=== PATIENT | female | born 1960 | race Caucasian/White ===

== ENCOUNTER 2022-08-30 07:29 | Outpatient (RCR) | payer MEDICARE, MEDICAID, SELFPAY | END 2022-09-07 23:59 | disposition home or self-care (01) | LOC: INF 07:29 | PROVIDERS: PCP Internal Medicine | DX: D64.9 Anemia, unspecified (principal) | CPT/HCPCS: 86850; 86900; 86901 ==

== ENCOUNTER 2022-09-25 09:37 | Day surgery (SDC) | payer MEDICARE, MEDICAID, SELFPAY ==
[2022-09-25 10:25] VITALS: BP 118/71; PULSE 73; RESP 18; TEMP 36.3; O2SAT 97
[2022-09-25 10:32] LABS: Glucometer 98 mg/dL (74-106)
--- NOTE | 2022-09-25 10:53 | P.ON_ITS ---
Date of procedure: 09/25/22 Pre-op diagnosis: Cervical Spondylosis Post-op diagnosis: same Procedure: Left Cervical 5/6, 6/7 facet injection Under fluoroscopic guidance Solution injected: 2millilitersMarcaine 0.25% Anesthesia :none Immediate complications none Time out process compliant After informed consent obtained from the patient placed in the [employer] proposition . area was prepped and draped in a sterile fashion using betadine. 25 gauge spinal needle inserted over each of the above mentioned target areas . [place] were directed towards the target under fluoroscopic guidance . after encountering each of the targets , no indication of intravascular intraneuronal or intrathecal needle tip placement. Then 0 .5 to 1 Milliliter was injected at each level. [place] removed postoperatively. patient transferred to recovery in stable condition to be discharged home after meeting criteria Surgeon: Amilcar Jacome
[2022-09-25 11:07] VITALS: RESP 20
[2022-09-25 11:10] VITALS: BP 154/77; PULSE 85; O2SAT 95
[2022-09-25] MEDS: BUPIVACAINE HCL 0.25% PF 25 MG/10 ML VIAL 8 ML INJ (11:13)
[2022-09-25 11:15] VITALS: BP 190/77; PULSE 87; O2SAT 97
== END 2022-09-25 11:32 | disposition home or self-care (01) ==
LOC: SURGOUT 09:38
PROVIDERS: PCP Internal Medicine; Visit Provider Anesthesiology Pain Medicine
DX: M47.812 Spondylosis without myelopathy or radiculopathy, cervical region (principal)
CPT/HCPCS: 36415; 64490; 64491; 82948

== ENCOUNTER 2023-01-15 14:02 | Outpatient (OUT) | payer MEDICARE, MEDICAID, SELFPAY ==
--- NOTE | 2023-01-15 | CONS_ITS ---
PROCEDURE DATE: ??01/15/2023 PROCEDURE:? Trigger point injection left trapezius at the C7 level, in the office. PREOPERATIVE DIAGNOSIS:? Pain secondary to cervical spondylosis, complicated by myofascial spasm, left trapezius, most severe at the C7 level. POSTOPERATIVE DIAGNOSIS:? Pain secondary to cervical spondylosis, complicated by myofascial spasm, left trapezius, most severe at the C7 level. IMMEDIATE COMPLICATIONS:? None. SOLUTION USED FOR INJECTION:? 2 mL of 2% lidocaine, 2 mL of 0.25% Marcaine and 10 mg of Kenalog, total of 5 mL, and 3 mL used for the injection at the site.? PROCEDURE:? After informed consent was obtained from the patient, placed in the sitting position.? Skin overlying the area was prepped with alcohol.? A 25 gauge 1 ?? needle was inserted at the left C7 level, approximately 2 cm from midline and directed towards the left trapezius.? ?After having a positive twitch response, we injected a total of 3 mL of solution.? No indication of intravascular or intraneural or intrathecal or intrapleural needle tip placement or injection.? She reports a marked reduction in pain symptoms post procedurally. DARCI
== END 2023-01-15 14:03 | disposition home or self-care (01) ==
LOC: PM 14:02
PROVIDERS: PCP Internal Medicine; Visit Provider Anesthesiology Pain Medicine
DX: M47.812 Spondylosis without myelopathy or radiculopathy, cervical region (principal); M62.838 Other muscle spasm
CPT/HCPCS: 20552

== ENCOUNTER 2023-05-28 13:08 | Outpatient (OUT) | payer MEDICARE, MEDICAID, SELFPAY ==
--- NOTE | 2023-05-28 13:18 | MM_ITS ---
Patient Name: DONNA MATHEWS MR#: [id number] : 1960 Exam Date: 05/28/2023 Ordering Doctor: DR LIYAH STOLL M.D. RADIOLOGY REPORT PROCEDURE: MM SCREENING MAMMO BI COMPARISON: MG MAMM SCREEN SAMAN W CAD, 04/25/2021. MG MAMM SCREEN SAMAN W CAD, 05/10/2022. INDICATIONS: Screening Calculator Name NCI Breast Cancer Risk Assessment Tool 5 Year Breast Cancer Risk 1.90% Lifetime Breast Cancer Risk 9.30% Personal Breast Cancer No Personal Ovarian Cancer No Treatments None Family Cancers Cousin-maternal with breast cancer at age 45; Aunt-maternal with lung cancer at age 72; Cousin-maternal with rectal cancer at age 52. LOCATION: [facility] BREAST COMPOSITION: Heterogeneously dense,which may obscure small masses. FINDINGS: DIAGNOSTIC CATEGORY 2--BENIGN FINDING. NO CHANGE FROM COMPARISON. Limited exam due to mobility and body habitus. Scattered benign-appearing calcifications are present. Scattered benign-appearing lymph nodes are present. RIGHT BREAST: No significant suspicious finding. LEFT BREAST: No significant suspicious finding. RECOMMENDATIONS: ROUTINE MAMMOGRAM AND CLINICAL EVALUATION IN 12 MONTHS. PLEASE NOTE: A NORMAL MAMMOGRAM DOES NOT EXCLUDE THE POSSIBILITY OF BREAST CANCER. A CLINICALLY SUSPICIOUS PALPABLE LUMP SHOULD BE BIOPSIED. Dictated by: Josr Saunders MD on 05/28/2023 at 14:34 Approved by: Josr Saunders MD on 05/28/2023 at 14:35
--- OUTSIDE RECORDS SUMMARY | 2023-05-28 13:24 | XMS_ITS | CCD ---
Author Organization [facility] Care Team Providers Care Coding Analyst Name Role Phone David Mejía Admitting Unavailable David Mejía Attending Unavailable Harjit Lopez Primary Care Unavailable DAVID MEJÍA Admitting Unavailable DAVID MEJÍA Attending Unavailable HARJIT LOPEZ Primary Care Unavailable Doug Ornelas MD Primary Care Provider [phone] Christopher Lema Unavailable Kendell Garcia Unavailable JOSE MARTIN .DR JARAD Attending Unavailable GAGNON ., DR JARAD Decker Admitting Unavailable REX, GLORY Primary Care Unavailable IGNACIO ., ABHINAV Consulting Unavailable REX, GLORY Primary Care Unavailable IGNACIO ., ABHINAV Consulting Unavailable JOSE MARTIN ., DR JARAD Decker Attending Unavailable GAGNON ., DR JARAD Decker Admitting Unavailable GAGNON ., DR JARAD Decker Admitting Unavailable REX, GLORY Primary Care Unavailable IGNACIO ., ABHINAV Consulting Unavailable GAGNON ., DR JARAD Decker Attending Unavailable GAGNON ., DR JARAD Decker Admitting Unavailable GAGNON ., DR JARAD Decker Consulting Unavailable REX, GLORY Primary Care Unavailable GAGNON ., DR JARAD Decker Attending Unavailable LAKSHMIPATHY ., NARENDRANATH Consulting Flora vailable LAKSHMIPATHY ., NARENDJOSELITOATH Attending Flora vailable LAKSHMIPATHY ., NARENDRANATH Admitting Flora vailable DR OTDD GEORGE Primary Care Unavailable JOSE MARTIN ., DR JARAD Decker Admitting Unavailable REX, LGORY Primary Care Unavailable IGNACIO ., ABHINAV Consulting Unavailable GAGNON ., DR JARAD Decker Attending Unavailable SKYLER PIÑA Attending Unavailable SKYLER PIÑA Admitting Unavailable DR TODD GEORGE Primary Care Unavailable MATIAS, DR EL Page Consulting Unavailable SKYLER PIÑA Consulting Unavailable LAKSHMIPATHY ., NARENDRANATH Admitting Flora vailable LAKSHMIPATHY ., NARENDRANATH Attending Flora vailable JERMAN, DR PELLETIER Primary Care Unavailable MATIAS, DR EL Page Consulting Unavailable LAKSHMIPATHY ., NARENDRANATH Consulting Flora vailable LAKSHMIPATHY ., NARENDRANATH Admitting Flora vailable LAKSHMIPATHY ., NARENDRANATH Attending Flora vailable JERMAN, DR PELLETIER Primary Care Unavailable BOONE, DR BANDAR Romero Consulting Unavailable LAKSHMIPATHY ., NARENDRANATH Consulting Flora vailable REX, GLORY Admitting Unavailable REX, GLORY Attending Unavailable JERMAN, DR PELLETIER Consulting Unavailable JERMAN, DR PELLETIER Primary Care Unavailable BOONE, DR BANDAR Romero Consulting Unavailable REX, GLORY Consulting Unavailable GAGNON ., DR JARAD Decker Admitting Unavailable REX, GLORY Primary Care Unavailable IGNACIO .ABHINAV Consulting Unavailable JOSE MARTIN ., DR JARAD Decker Attending Unavailable Todd George MD Primary Care Provider ZIYAD ULRICH Attending Unavailable TODD GEORGE Referring Unavailable JERMAN TODD B Primary Care Unavailable ANURAG ISABEL Attending Unavailable TODD GEORGE B Primary Care Unavailable KRYSTIN SALCEDO Attending Unavailable KRYSTIN SALCEDO Admitting Unavailable KRYSTIN SALCEDO Referring Unavailable JERMAN TODD B Primary Care Unavailable KRYSTIN SALCEDO Attending Unavailable TODD GEORGE B Referring Unavailable JERMAN TODD B Primary Care Unavailable ANDRE GRAVES Attending Unavailable GABRIELLE CONTRERAS Referring Unavailable JERMAN TODD B Primary Care Unavailable ANDRE GRAVES Attending Unavailable GABRIELLE CONTRERAS Referring Unavailable JERMAN TODD B Primary Care Unavailable ZIYAD ULRICH Referring Unavailable TODD GEORGE Primary Care Unavailable Rosina Fink Attending Unavailab Rosina Figueredo Referring Unavailab Harjit Gonzalez Primary Care Unavailable Rosina Fink Admitting Unavailab le Allergies Allergy Classification Reported Allergen(s) Allergy Type Date of Onset Reaction(s) Facility (1 source) No Known Medication Allergies; Translations: [No Known Medication Allergies] Propensity to adverse reactions to drug (disorder) [facility] Rep[facility] Medications Current Medications Medication Drug Class(es) Dates Sig (Normalized) Sig (Original) A/C/E/zinc ox/cupric ox/lutein (OCULAR VITAMINS ORAL) (1 source) A/C/E/zinc ox/cu pric ox/lutein (OCULAR VITAMINS ORAL) Take by mouth. 0 Active acetaminophen 325 mg oral tablet (2 sources) take 2 tablets by mouth every six hours as needed for pain acetaminophen (TYLENOL) 325 mg tablet Take 2 tablets (650 mg total) by mouth every 6 (six) hours as needed for pain. 0 Active aspirin 81 mg delayed release oral tablet (3 sources) Platelet Aggregation Inhibitor, Nonsteroidal Anti-inflammatory Drug take 1 tablet by mouth in the morning aspirin 81 mg Take 1 tablet (81 mg total) by mouth in the morning. 0 Active Comment on above: Take 81 mg by mouth once daily. Avonex 30 MCG/VIAL (2 sources) inject 1.5 mL by intramuscular injection every week Avonex 30 MCG/VIAL 1.5 ML Intramuscular Once a Week for 30 day(s) Active B complex-vitamin C-folic acid (RENAL-LOLIS) 0.8 mg tablet (2 sources) take 1 tablet by mouth in the morning B complex-vitamin C-folic acid (RENAL-LOLIS) 0.8 mg tablet Take 1 tablet by mouth in the morning. 0 Active biotin 1 mg oral tablet (2 sources) take 1 tablet by mouth in the morning biotin 1 mg tablet Take 1 tablet (1 mg total) by mouth in the morning. 0 Active calcitriol 0.57731 mg oral capsule (2 sources) Vitamin D3 Analog Calcitriol 0.2 5 MCG Oral for 28 Active Calcium + D 315-200 MG-UNIT (2 sources) Calcium + D 315- 200 MG-UNIT as directed Orally Active calcium carbonate 1250 mg chewable tablet (3 sources) calcium carbonat e (TUMS) 200 mg elemental (500 mg) chewable tablet Chew 1 tablet (200 mg total) and swallow in the morning. 0 Active calcium carbonat e (OS-NAIMA) 500 mg elemental (1,250 mg) chewable tablet Chew 2 tablets (1,000 mg total) and swallow. Take Sat., Th, Fri (she takes the medication with her on dialysis day) 0 Active carboxymethylcellulose sodium 10 mg/ml ophthalmic solution (2 sources) take 1 drop(s) into the eye(s) in the morning carboxymethylcellulose sodium (ARTIFICIAL TEARS, [facility],) 1 % drops Administer 1 drop to both eyes in the morning and 1 drop before bedtime. 0 Active carvedilol 6.25 mg oral tablet (2 sources) alpha-Adrene rgic Jyoti, beta-Adrener gic Jyoti take 0.5 tablet by mouth in the morning, then take 0.5 tablet by mouth at mealtime carvediloL (COREG) 6.25 mg tablet Take 0.5 tablets (3.125 mg total) by mouth in the morning and 0.5 tablets (3.125 mg total) in the evening. Take with meals. 0 Active cholecalciferol 0.025 mg oral tablet (3 sources) Vitamin D Start : 09-19 take 1 tablet by mouth in the morning cholecalciferol (VITAMIN D3) 1,000 units tablet Take 1 tablet (1,000 Units total) by mouth in the morning. 30 tablet 3 09/19/2022 Active Start: 05-23-2014 take 1 tablet by attila th three times daily cholecalciferol (VITAMIN D) 1,000 unit tab Take 1 tablet by mouth three times daily. May resume after taking one week course of 50,000uVit D (start on 05/24/2014) 0 05/23/2014 Active Comment on above: Take 1 tablet by attila th three times daily. May resume after taking one week course of 50,000uVit D (start on 05/24/2014) Darvocet-N 100 100-650 MG (2 sources) take 1 tablet by mouth every four hours as needed for pain Darvocet-N 100 100-650 MG 1 tablet as needed for pain Orally every 4 hrs Active docusate sodium 50 mg / sennosides, prison 8.6 mg oral tablet (2 sources) Start: 09-19-2022 take 1 tablet by mouth once as needed sennosides-docusate sodium (SENOKOT-S) 8.6-50 mg Take 1 tablet by mouth every 12 (twelve) hours as needed for constipation. 0 09/19/2022 Active famotidine 20 mg oral tablet (2 sources) Histamine-2 Receptor Antagonist take 1 tablet by mouth once daily at bedtime famotidine (PEPCID) 20 mg tablet Take 1 tablet (20 mg total) by mouth once daily at bedtime. 0 Active furosemide 40 mg oral tablet (4 sources) Loop Diuretic Start: 01-17-2009 take 1 tablet by mouth every twenty-four hours Lasix 40 MG 1 tablet Orally Once a day for 30 day(s) Jan, Active take 1 tablet by attila th every twenty-four hours Lasix 80 MG 1 tablet Orally Once a day for 30 day(s) Active 5 ml iron sucrose 20 mg/ml injection (2 sources) Parenteral Iron Replacement Start: 08-22-2022 VENOFER 100 mg iron/5 mL injection Infuse 5 mL (100 mg total) into a venous catheter. 0 08/22/2022 Active lactobacillus acidophilus [id number] unt / pectin 100 mg oral tablet (2 sources) take 1 tablet by mouth once daily at breakfast acidophilus-pect in, citrus 25 million cell -100 mg tablet Take 1 tablet by mouth daily with breakfast. 0 Active lactulose 89206 mg powder for oral solution (3 sources) Osmotic Laxative take 1 dose by mouth three times daily lactulose (CEPHULAC) 10 gram packet Take 1 packet (10 g total) by mouth 3 (three) times a day. 0 Active Enulose 10 GM/15 ML Oral for 30 Active Lutein (2 sources) take 1 tablet by mouth in the morning LUTEIN ORAL Take 1 tablet by mouth in the morning. 0 Active melatonin 3 mg oral tablet (2 sources) take 1 tablet by mouth once daily melatonin (CIRCADIN) tablet Take 1 tablet (3 mg total) by mouth nightly. 0 Active metoprolol tartrate 50 mg oral tablet (2 sources) beta-Adrenergic Jyoti take 1 tablet by mouth every twenty-four hours Metoprolol Tartrate 50 MG 1 tablet Orally ONCE A DAY for 30 day(s) Active midodrine hydrochloride 5 mg oral tablet (2 sources) alpha-Adrenergic Agonist Start: 10-07-19 midodrine (PROAMATINE) 5 mg tablet Take 1 tablet (5 mg total) by mouth before breakfast. On dialysis days 1 tab as needed for hypotension PRE dialysis in am 0 10/06/2022 Active modafinil 100 mg oral tablet (4 sources) Sympathomimetic-lik e Agent take 1 tablet by mouth in the morning modafiniL (PROVIGIL) 100 mg tablet Take 1 tablet (100 mg total) by mouth in the morning. 0 Active Multivitamins (2 sources) Multivitamins as directed Orally Active nut.tx.imp.renal fxn,lac-reduc (NEPRO CARB STEADY) 0.08 gram-1.8 kcal/mL liquid (2 sources) nut.tx.imp.renal fxn,lac-reduc (NEPRO CARB STEADY) 0.08 gram-1.8 kcal/mL liquid Take 237 fluid ounces by mouth daily after dinner. 0 Active nystatin 100 unt/mg topical powder (2 sources) Polyene Antifungal nystatin (MYC OSTATIN) powder Apply 1 Application topically in the morning and 1 Application before bedtime. 0 Active omega-3 fatty acids 500 mg capsule (2 sources) take 1 capsule by mouth once daily at bedtime omega-3 fatty acids 500 mg capsule Take 1,500 mg by mouth once daily at bedtime. 0 Active OXcarbazepine 300 mg oral tablet (5 sources) Anti-epileptic Agent take 1 tablet by mouth in the morning, then take 1 tablet by mouth at bedtime OXcarbazepine (TRILEPTAL) 300 mg tablet Take 1 tablet (300 mg total) by mouth in the morning and 1 tablet (300 mg total) before bedtime. 0 Active take 1 tablet by mouth twice rachel ly OXcarbazepine 150 mg tablet Take 150 mg by mouth twice daily. 0 Active Comment on above: Take 150 mg by mouth twice daily. oxyCODONE hydrochloride 5 mg oral capsule (4 sources) Opioid Agonist Start: 04-10-2023 End: 05-10-2023 take 2.5 mg by mouth every eight hours as needed oxyCODONE (OXY-IR) 5 mg capsule Take 2.5 mg by mouth every 8 (eight) hours as needed. Max Daily Amount: 7.5 mg 0 04/10/2023 05/10/2023 Active Start: 10-03-2022 oxyCODONE (HEATHER ICODONE) 5 mg immediate release tablet Start: 05-23-2014 take 5-10 mg by mout h every three hours as needed oxyCODONE immediate release (PERCOLONE) 5 mg immediate release tablet Take 1-2 tablets by mouth every 3 hours as needed. 0 05/23/2014 Active Comment on above: Take 1-2 tablets by mouth every 3 hours as needed. pregabalin 75 mg oral capsule (4 sources) take 1 capsule by mouth once daily at bedtime pregabalin (LYRICA) 75 mg capsule Take 1 capsule (75 mg total) by mouth once daily at bedtime. 0 Active Pregabalin 150 M G Oral for 15 Active DIANA-LOLIS RX 1-60-300 mg-mg-mcg tablet (1 source) Start: 03-25-2023 DIANA-LOLIS RX 1-60-300 mg-mg-mcg tablet sertraline 50 mg oral tablet (2 sources) Serotonin Reuptake Inhibitor take 1 tablet by mouth in the morning sertraline (ZOLOFT) 50 mg tablet Take 1 tablet (50 mg total) by mouth in the morning. 0 Active sevelamer carbonate 800 mg oral tablet (1 source) Phosphate Binder Start: 02-22-2023 sevelamer (RE NVELA) 800 mg tablet sodium zirconium cyclosilicate 42641 mg powder for oral suspension (1 source) sodium zirconium cyclosilicate (LOKELMA) 10 gram packet Take 10 g by mouth in the morning. 0 Active traZODone hydrochloride 50 mg oral tablet (4 sources) Serotonin Reuptake Inhibitor Start: 10-03-2022 traZODone (DESYREL) 50 mg tablet traZODone HCl 50 MG Oral for 30 Active Completed/Discontinued Medications Medication Drug Class(es) Dates Sig (Normalized) Sig (Original) alendronic acid 70 mg oral tablet (1 source) Bisphosphonate take 1 tablet by mouth every week alendronate (FOSAMAX) 70 mg tablet Take 70 mg by mouth once each week. 0 Active Comment on above: Take 70 mg by mouth once each week. ascorbic acid 500 mg oral tablet (1 source) Vitamin C take 1 tablet by mouth once daily ascorbic acid (VITAMIN C) 500 mg tablet Take 500 mg by mouth once daily. 0 Active Comment on above: Take 500 mg by mouth once daily. atorvastatin 80 mg oral tablet (3 sources) HMG-CoA Reductase Inhibitor Start: 05-21-2020 atorvastatin (LIPITOR) 80 mg tablet calcium citrate 950 mg oral tablet (1 source) take 1 tablet by mouth once daily calcium citrate 200 mg (950 mg) tab Take 1,900 mg by mouth once daily. 0 Active Comment on above: Take 1,900 mg by attila th once daily. 12 hr dalfampridine 10 mg extended release oral tablet (1 source) Potassium Channel Jyoti take 1 tablet by mouth twice daily Dalfampridine (AMPYRA) 10 mg Tb12 Take 1 tablet by mouth twice daily. 0 Active Comment on above: Take 1 tablet by attila th twice daily. ferrous sulfate 325 mg oral tablet (1 source) take 1 tablet by mouth once daily at breakfast Ferrous Sulfate (IRON) 325 mg (65 mg iron) tablet Take 325 mg by mouth daily with breakfast. 0 Active Comment on above: Take 325 mg by mouth daily with breakfast. fingolimod 0.5 mg oral capsule (1 source) Sphingosine 1-phosphate Receptor Modulator take 1 capsule by mouth once daily Fingolimod (GILENYA) 0.5 mg cap Take 1 capsule by mouth once daily. 0 Active Comment on above: Take 1 capsule by mo [facility] once daily. Fish Oil-[place]-3 Fatty Acids (FISH OIL) 340-1,000 mg cap (1 source) Fish Oil-[place]-3 Fatty Acids (FISH OIL) 340-1,000 mg cap Take 2 capsules by mouth. 0 Active Comment on above: Take 2 capsules by outh. FOLIC ACID/MV,FE,OTHER MIN/LUT (CERTAVITE WITH LUTEIN ORAL) (1 source) FOLIC ACID/MV,FE,OTHER MIN/LUT (CERTAVITE WITH LUTEIN ORAL) Take by mouth. 0 Active Comment on above: Take by mouth. gabapentin 600 mg oral tablet (1 source) Anti-epileptic Agent take 1 tablet by mouth twice daily gabapentin (NEURONTIN) 600 mg tablet Take 600 mg by mouth twice daily. 0 Active Comment on above: Take 600 mg by mouth twice daily. lisinopril 10 mg oral tablet (3 sources) Angiotensin Converting Enzyme Inhibitor take 1 tablet by mouth once daily lisinopril (ZESTRIL, PRINIVIL) 10 mg tablet Take 10 mg by mouth once daily. 0 Active take 1 tablet by attila every twenty-four hours Lisinopril 20 MG 1 tablet Orally Once a day for 30 day(s) Active Comment on above: Take 10 mg by mouth once daily. multivitamin with minerals tablet (1 source) take 1 tablet by mouth once daily multivitamin with minerals tablet Take 1 tablet by mouth once daily. 0 Active Comment on above: Take 1 tablet by attila once daily. omeprazole 20 mg delayed release oral capsule (1 source) Proton Pump Inhibitor take 1 capsule by mouth twice daily omeprazole 20 mg capsule Take 20 mg by mouth twice daily. 0 Active Comment on above: Take 20 mg by mouth twice daily. polyethylene glycol 3350 33334 mg powder for oral solution (4 sources) Osmotic Laxative Start: 03-18-201 5 take 1 dose by mouth once daily as needed polyethylene glycol 3350 (MIRALAX) 17 gram packet Take 1 Packet by mouth once daily as needed. 0 05/26/2014 Active polyethylene gly col (GLYCOLAX) 17 gram/dose powder Take 17 g by mouth in the morning. 0 Active MiraLax as direc rosa Orally Active Comment on above: Take 1 Packet by attila th once daily as needed. tiZANidine 4 mg oral tablet (1 source) Central alpha-2 Adrenergic Agonist take 1 tablet by mouth at bedtime tiZANidine (ZANAFLEX) 4 mg tablet Take 4 mg by mouth with meals and at bedtime. 0 Active Comment on above: Take 4 mg by mouth w ith meals and at bedtime. traMADol hydrochloride 50 mg oral tablet (3 sources) Opioid Agonist take 1 tablet by mouth every eight hours as needed traMADol (ULTRAM) 50 mg tablet Take 50 mg by mouth every 8 hours as needed. 0 Active Comment on above: Take 50 mg by mouth every 8 hours as needed. Problems Active Problems Problem Classification Problem Date Documented Date Episodic/Chronic Chronic kidney disease (10 sources) Chronic kidney disease stage 4; Translations: [Chronic kidney disease, stage 4 (severe)] Onset: 08-30-2022 08-30-2022 Chronic Chronic kidney disease (1 source) Chronic kidney disease Onset: 02-25-2023 Chronic ulcer of skin (4 sources) Traumatic leg ulcer; Translations: [Non-pressure chronic ulcer of unspecified part of left lower leg with fat layer exposed] Onset: 09-14-2022 09-14-2022 Chronic Complication of device; implant or graft (2 sources) Arteriovenous fistula stenosis; Translations: [Stenosis of other vascular prosthetic devices, implants and grafts, initial encounter] Onset: 04-01-2023 05-02-2023 Chronic Deficiency and other anemia (2 sources) Anemia of chronic disease; Translations: [Anemia in other chronic diseases classified elsewhere] Onset: 08-30-2022 09-13-2022 Chronic Diseases of white blood cells (2 sources) Leukocytosis; Translations: [Elevated white blood cell count, unspecified] Onset: 09-13-2022 09-13-2022 Chronic Essential hypertension (2 sources) Essential hypertension; Translations: [HTN [Hypertension]] Chronic Multiple sclerosis (10 sources) Multiple sclerosis; Translations: [Multiple sclerosis] Onset: 01-24-2021 Resolved: 01-24-2021 Chronic Osteoarthritis (4 sources) Arthropathy of left shoulder; Translations: [Primary osteoarthritis, left shoulder] Onset: 01-24-2021 Resolved: 01-24-2021 Chronic Osteoporosis (4 sources) Age-related osteoporosis without current pathological fracture; Translations: [AGE-REL OSTEOPOR W/O CURR PATH FX] Onset: 05-10-2022 Chronic Other circulatory disease (2 sources) Arteriovenous fistula, acquired; Translations: [Arteriovenous fistula, acquired] Onset: 04-01-2023 Chronic Other connective tissue disease (2 sources) History of total knee arthroplasty; Translations: [Presence of right artificial knee joint] Chronic Other connective tissue disease (1 source) Complete rotator cuff tear or rupture of right shoulder, not specified as traumatic; Translations: [CMPL ROT CUFF TEAR/RUPT RT SHOULDR] Onset: 07-08-2022 Episodic Other connective tissue disease (1 source) Unspecified rotator cuff tear or rupture of left shoulder, not specified as traumatic; Translations: [UNS ROT CUFF TEAR/RUPT LT SHOULDER] Onset: 06-15-2022 Episodic Other diseases of veins and lymphatics (2 sources) Lymphedema; Translations: [Lymphedema, not elsewhere classified] Onset: 09-14-2022 09-14-2022 Chronic Other nervous system disorders (1 source) Other chronic pain; Translations: [OTHER CHRONIC PAIN] Onset: 06-15-2022 Chronic Other nervous system disorders (1 source) Other acute postprocedural pain; Translations: [Other acute postprocedural pain] Onset: 02-25-2023 Episodic Other non-traumatic joint disorders (3 sources) Charcot's arthropathy; Translations: [Charcot's joint, unspecified site] Onset: 03-27-2013 03-27-2013 Chronic Other non-traumatic joint disorders (4 sources) Pain in left shoulder; Translations: [PAIN IN LEFT SHOULDER] Onset: 07-04-2022 Episodic Other nutritional; endocrine; and metabolic disorders (5 sources) Morbid obesity; Translations: [Morbid (severe) obesity due to excess calories] Onset: 09-13-2022 09-13-2022 Chronic Other nutritional; endocrine; and metabolic disorders (1 source) Morbid (severe) obesity due to excess calories Onset: 01-24-2021 Resolved: 01-24-2021 Chronic Other screening for suspected conditions (not mental disorders or infectious disease) (1 source) Encounter for screening mammogram for malignant neoplasm of breast; Translations: [ENC SCR MAMMO MALIG NEOPLASM BREAST] Onset: 05-14-2022 Episodic Residual codes; unclassified (1 source) Family history of malignant neoplasm of breast; Translations: [FAMILY HX MALIG NEOPLASM OF BREAST] Onset: 05-14-2022 Episodic Residual codes; unclassified (1 source) Family history of malignant neoplasm of trachea, bronchus and lung; Translations: [FAM HX MALIG NEOPLSM TRACH BRON LNG] Onset: 05-14-2022 Episodic Residual codes; unclassified (1 source) Family history of malignant neoplasm of other organs or systems; Translations: [FAM HX MALIG NEOPLASM OTH ORGN/SYS] Onset: 05-14-2022 Episodic Spondylosis; intervertebral disc disorders; other back problems (10 sources) Spondylosis without myelopathy or radiculopathy, cervical region; Translations: [Other cervical disc degeneration, unspecified cervical region] Onset: 08-02-2021 Chronic Spondylosis; intervertebral disc disorders; other back problems (7 sources) Cervicalgia; Translations: [Cervical disc disorder with radiculopathy, unspecified cervical region] Onset: 01-24-2021 Resolved: 01-24-2021 Episodic Unclassified (2 sources) DX INCONTINENCE; Translations: [DX INCONTINENCE] Onset: 07-09-2018 Unclassified (1 source) Post-op Onset: 04-01-2023 Past or Other Problems Problem Classification Problem Date Documented Da te Episodic/Chronic Allergic reactions (2 sources) Irritant contact dermatitis; Translations: [Other specified dermatitis] Onset: 09-14-2022 09-14-2022 Episodic Fracture of lower limb (4 sources) Fracture of femur; Translations: [Unspecified fracture of unspecified femur, initial encounter for closed fracture] Onset: 09-29-2013 04-28-2014 Episodic Mood disorders (2 sources) Mood disorders Onset: 09-13-2022 09-13-2022 Other connective tissue disease (1 source) Other muscle spasm; Translations: [OTHER MUSCLE SPASM] Onset: 01-29-2022 Episodic Phlebitis; thrombophlebitis and thromboembolism (3 sources) H/O: Deep vein thrombosis; Translations: [Personal history of other venous thrombosis and embolism] Onset: 09-29-2013 05-04-2021 Episodic Residual codes; unclassified (2 sources) FH: Multiple sclerosis; Translations: [Family history of epilepsy and other diseases of the nervous system] Onset: 09-13-2022 09-13-2022 Episodic Residual codes; unclassified (2 sources) Urinary catheter in situ; Translations: [Presence of other specified devices] Onset: 09-13-2022 09-13-2022 Episodic Results Test Name Value Interpretation Reference Range Facility POTASSIUMon 02-25-2023 Potassium [Moles/Vol] 5.4 mmol/L High 3.5-5.0 [facility] Comment on above: Performed By: #### 2 823-3 #### [facility] ([id number]) [address], [address] [place] [address] MRI SHOULDER LT WO CONon MRI SHOULDER LT WO CON EXAMINATION: MRI SHOULDER LT WO CON HISTORY: Pain of left shoulder region ; chronic left shoulder pain COMPARISON: No relevant comparison available. TECHNIQUE: A variety of imaging planes and parameters were utilized for visualization of suspected pathology. Imaging was performed without contrast. FINDINGS: ROTATOR CUFF REGION CUFF TENDONS: Complete tear of the superior rotator cuff with 16 mm retraction. CUFF MUSCLES: Mild fatty infiltration of the superior rotator cuff muscle. DELTOID: Normal. No significant atrophy or tear. LONG BICEPS TENDON: Intact, but appears thinned overlying the humeral head. LABRUM/BICEPS ANCHOR SUPERIOR: No visible labral tear or biceps anchor pathology. ANTERIOR/INFERIOR: No visible tear or attrition. POSTERIOR: No posterior labrum abnormality. CAPSULE No visible capsular laxity or thickening. AC JOINT REGION AC JOINT: Severe osteoarthropathy with moderate to severe narrowing of the underlying coracoacromial arch. AC LIGAMENTS: Normal acromioclavicular ligament. CC LIGAMENTS: Normal coracoclavicular ligaments. ACROMION: Prominent undersurface osteophyte at the lateral inferior margin of acromion process. SUBACROMIAL BURSA: Large joint effusion. HYALINE CARTILAGE: Complete loss of cartilage with [id number] articulation between the humeral head and glenoid, remodeling of the glenoid, and large degenerative osteophyte along inferior articular margin of humeral head. OTHER BONES: Normal proximal humerus, glenoid, and coracoid. OTHER OBSERVATIONS: Negative. No other significant findings or glenohumeral effusion. IMPRESSION: 1. Marked degenerative changes of acromioclavicular joints and glenohumeral joint. 2. Complete tear of the superior rotator cuff with large effusion within the subacromial bursa. Electronically authenticated by: BANDAR SHOOK Date: 2022-07-05 07:[address] [facility] MG MAMM SCREEN SAMAN W CADon 0 05-10-2022 MG MAMM SCREEN SAMAN W CAD Patient: DONNA MATHEWS Exam Date: 05/10/2022 : 1960 Gender:F Ordering : MRS. [employer]YLER [employer] REPLACER-C Admission #: [id number] Family : Order #: [id number] CLICK HERE TO VIEW EXAM RADIOLOGY REPORT PROCEDURE: MAMMOGRAM BILATERAL SCREENING DIGITAL WITH COMPUTER AIDED DETECTION COMPARISON: MG MAMM SCREEN SAMAN W CAD, 04/25/2021. INDICATIONS: Screening mammography Calculator Name NCI Breast Cancer Risk Assessment Tool 5 Year Breast Cancer Risk 1.90% Lifetime Breast Cancer Risk 9.50% Personal Breast Cancer No Personal Ovarian Cancer No Treatments None Family Cancers Cousin-maternal with breast cancer at age 45; Aunt-maternal with lung cancer at age 72; Cousin-maternal with rectal cancer at age 52. LOCATION: [facility] BREAST COMPOSITION: Heterogeneously dense,which may obscure small masses. FINDINGS: DIAGNOSTIC CATEGORY 1--NEGATIVE. NO CHANGE FROM COMPARISON ASSESSMENT. Non tomographic imaging, Very limited evaluation due to the patient's obesity and immobility. Scattered benign-appearing calcifications are present. RIGHT BREAST: No significant suspicious finding. LEFT BREAST: No significant suspicious finding. RECOMMENDATIONS: ROUTINE MAMMOGRAM AND CLINICAL EVALUATION IN 12 MONTHS. PLEASE NOTE: A NORMAL MAMMOGRAM DOES NOT EXCLUDE THE POSSIBILITY OF BREAST CANCER. A CLINICALLY SUSPICIOUS PALPABLE LUMP SHOULD BE BIOPSIED. Dictated by: El Salcedo MD on 05/11/2022 at 12:29 Approved by: El Salcedo MD on 05/11/2022 at 12:[address] [facility] XR DEXA BONE DENSITYon 05-10 XR DEXA BONE DENSITY EXAMINATION: XR DEX A BONE DENSITY, 05/10/2022 12:41 PM EST HISTORY: Osteoporosis COMPARISON: 2019, 2016, 2012 TECHNIQUE: Dual-energy X-ray absorptiometry (DEXA) bone density study performed for the axial skeleton. FINDINGS: Bone mineral density in the left forearm measures 0.565 g/sq cm. T score -2.1. WHO classification: Osteopenia Lowest bone mineral density in the total right femur measuring 0.42 g/sq cm. T score -4.6. WHO classification: Osteoporosis IMPRESSION: Osteoporosis. High fracture risk Electronically authenticated by: EL SALCEDO Date: 2022-05-10 16:[address] [facility] MRI BRAIN WO W CONon 023 MRI BRAIN WO W CON EXAMINATION: MRI BRA IN WO W CON HISTORY: Multiple sclerosis COMPARISON: MRI brain 10/10/2020 TECHNIQUE: A variety of imaging planes and parameters were utilized for visualization of suspected pathology. Images were performed without and with Dotarem contrast. FINDINGS: CEREBRUM: Prominent T2 signal involving the periventricular deep white matter with additional focal subcortical areas. No hemorrhage, mass, or acute infarction. No enhancement of these areas. CEREBELLUM: No edema, hemorrhage, mass, acute infarction, or inappropriate atrophy. BRAINSTEM: No edema, hemorrhage, mass, acute infarction, or inappropriate atrophy. CSF SPACES: Ventricles, cisterns, and sulci are appropriate for age. No hydrocephalus, subarachnoid hemorrhage, or mass. SKULL: No mass or other significant visible lesion. SINUSES: Mucocele versus retention cyst within right maxillary sinus. ORBITS: Limited views are unremarkable. OTHER: No abnormal meningeal or parenchymal enhancement. IMPRESSION: 1. Grossly stable prominent T2 hyperintensities within periventricular deep white matter consistent with multiple sclerosis. No new findings or evidence to suggest active demyelination. 2. Grossly stable mild atrophy. Electronically authenticated by: BANDAR SHOOK Date: 2022-04-13 07:[address] [facility] BUNon 04-12-2022 Urea nitrogen [Mass/Vol] 37.0 mg/dL Critically high 7.0-18.[address] [facility] Comment on above: Performed By: #### C KRIS, BUN #### [facility] [address] [place] [address] Dr. Ellen Layne CREATININEon 04-12-2022 Creatinine [Mass/Vol] 1.79 mg/dL Critically high 0.55-1.[address] [facility] Comment on above: Performed By: #### C KRIS, BUN #### [facility] [address] [place], [place] [address] Dr. Ellen Layne EGFR-AF KYRGYZ 35 mL/min/1.73m2 Critically low >=[address] [facility] Comment on above: Performed By: #### C KRIS, BUN #### [facility] [address] [place], [place] [address] Dr. Ellen Layne EGFR-NON AF KYRGYZ 29 mL/min/1.73m2 Critically low >=[address] [facility] Comment on above: Performed By: #### C KRIS, BUN #### [facility] [address] [place], [place] [address] Dr. Ellen Layne Gastroenterology Office/Clin ic Noteon 05-18-2021 Gastroenterology Office/Clinic Note Chief Complaint ref by [facility]- abnormal labs HPI Staff This is a 60 year old female who presents today for a referral by [facility] for complaints of abnormal renal labs. History of Present Illness The patient is a senior living resident and was referred to me, but she is unsure what the referral was for. She denies abdominal pain, nausea, vomiting, fever, chills, melena, hematochezia, or dysphagia. She has history of Freida-en-Y gastric bypass. She reports that her last colonoscopy was 3 years ago with normal findings. Review of Systems PHQ Score Initial Depression Screen Score: 0 Constitutional: no fever, no chills, no sweats, no weakness Skin: no jaundice, no rash, no lesions, no petechiae ENMT: no ear pain, no sore throat, no congestion, no hoarseness Respiratory: no shortness of breath, no cough, no orthopnea, no wheezing Cardiovascular: no chest pain, no palpitations, no edema Gastrointestinal: no nausea, no vomiting, no diarrhea, no constipation, no GI bleeding, no abdominal pain, no dysphagia, no bloating, no heartburn Genitourinary: no dysuria, no hematuria, no discharge, no pain Musculoskeletal: no back pain, no trauma Neurologic: no numbness, no sleeping problems Additional ROS info: Except as noted in the above Review of Systems and in the History of Present Illness all other systems have been reviewed and are negative or noncontributory. Physical Exam Vitals & Measurements T: 36.1 ?C(Temporal Artery) HR: 75(Peripheral) RR: 16 BP: 126/83 HT: 165.0 cm HT: 165 cm WT: 134.1 kg WT: 134.1 kg BMI: 49.26 Constitutional: Appearance: well developed. Skin: Inspection: no rashes, ulcers, icterus, or telangiectasias. Eyes: Conjunctivae/lids: normal conjunctivae and lids. ENMT: Hearing: within normal limits. Lips/Teeth/Gums: normal oral mucosa. Neck: Neck: normal motion, central trachea. Respiratory: Percussion: thorax normoresonant. Auscultation: normal breath sounds; no rubs, wheezes, rale, or rhonchi. Cardiovascular: Auscultation: normal rhythm, S1 and S2; no rubs, murmurs, or gallop. Peripheral: no edema. Gastrointestinal/Abdom en: Abdomen: normal consistency and bowel sounds; no tenderness or masses. Liver/Spleen: normal size and consistency, not palpable. Rectal: deferred. Musculoskeletal: Gait/Station: normal gait. Assessment/Plan 1. Hx of gastric bypass (Z98.84: Bariatric surgery status) I am unsure why the patient was referred to me as the referral states she had abnormal renal labs; however, the lab work is not available to me. Before proceeding with any testing, I advised the patient to call the senior living and clarify why she was referred. 2. Screen for colon cancer (Z12.11: Encounter for screening for malignant neoplasm of colon) Documentation services were performed after patient or guardian consented to allow [employer] to record this visit. ANABELLE informatics specialist and provider reviewed before signing. ANABELLE: Gertrude Zepeda. Follow-up No qualifying data available Problem List/Past Medical History Ongoing Benign essential hypertension Body fluid retention Carpal tunnel syndrome carpel tunnel Chronic back pain Hand pain Lymph edema Multiple sclerosis Osteoporosis Pes planus Historical DVT Osteopenia Procedure/Surgical History Carpal tunnel release (03/18/2017), left carpal tunnel release (06/22/2013), Arthroplasty of knee, back surgery (lumbar fusion), bilateral foot surgery, Bilateral tubal ligation, Bunionectomy, Cholecystectomy, EMG - Electromyography, gastric bypass, History of tonsillectomy, Total replacement of right knee joint. Medications apixaban, Oral, BID aspirin, 81 mg, Oral, Daily atorvastatin, Oral, Daily Cerovite Advanced Formula, 1 tab(s), Oral, Daily famotidine, 20 mg, Oral, Once a day (at bedtime) ferrous sulfate, 325 mg, Oral, Daily Fish Oil, 1,200, Oral Fosamax 70 mg oral tablet, 70 mg= 1 tab(s), Oral, Saturday gabapentin, 1200 mg, Oral, BID glucosamine, Oral hydrocortisone topical 1% cream, 1 oliva, Topical, BID hydrOXYzine lactulose Lidoderm 5% Patch, 1 patch(es), Topical lisinopril 5 mg Tab, 10 mg= 2 tab(s), Oral, Daily magnesium oxide, 400 mg, Oral, Once a day (at bedtime) metformin, 500 mg, Oral, BID multiple vitamin- vision formula with lutein, Daily oxycodone, 10 mg, Oral, q3hr, PRN oxycodone, 10 mg, Oral, MonTuWeThFrSu oxycodone, 10 mg, Oral, Saturday predniSONE, 20 mg, Oral, Daily tizanidine, 8 mg, Oral, Bedtime tramadol, 100 mg, Oral, TID Trileptal, 300 mg, Oral, BID Vitamin B Complex oral tablet, 1 tab(s), Oral, Daily Vitamin C 500 mg Tab, 500 mg= 1 tab(s), Oral, Daily Vitamin D, 63476 International_Unit, Oral, qWeek Zanaflex 4 mg Tab, 4 mg= 1 tab(s), Oral, Daily Zinbryta, 150 mg, SubCutaneous, qMonth Allergies No Known Allergies Social History Alcohol - Denies Alcohol Use, 10/19/2010 Past, 10/19/2010 Substance Abuse - Denies Substance Abuse, (more content not included)... Normal [facility] Comment on above: Result Comment: Elec tronically Signed By: Yamil DC MD\.br\Date and Time Signed: 05/18/21 13:10 EST\.br\Electronically Co-Signed By: Gertrude Zepeda\.br\Date and Time Co-Signed: 05/15/21 14:41 EST Ambulatory Visit Summaryon 0 05-15-2021 Ambulatory Visit Summary DONNA MATHEWS :1960 Visit Date:05/15/2021 Ambulatory Visit Instructions Your Diagnosis Hx of gastric bypass Screen for colon cancer Your Care Team Attending Physician - VANDA BROWN, Yamil Primary Care Physician - Doug Ornelas MD This Is Your Medications List Non-Formulary Medication (multiple vitamin- vision formula with lutein) alendronate (Fosamax 70 mg oral tablet) apixaban ascorbic acid (Vitamin C 500 mg Tab) aspirin atorvastatin daclizumab (Zinbryta) ergocalciferol (Vitamin D) famotidine ferrous sulfate gabapentin glucosamine hydrOXYzine hydrocortisone topical (hydrocortisone topical 1% cream) lactulose lidocaine topical (Lidoderm 5% Patch) lisinopril (lisinopril 5 mg Tab) magnesium oxide metformin multivitamin (Vitamin B Complex oral tablet) multivitamin with minerals (Cerovite Advanced Formula) omega-3 polyunsaturated fatty acids (Fish Oil) oxcarbazepine (Trileptal) oxycodone oxycodone oxycodone predniSONE tizanidine tizanidine (Zanaflex 4 mg Tab) tramadol Procedures Performed Carpal tunnel release (03/18/2017), left carpal tunnel release (06/22/2013), Arthroplasty of knee, back surgery (lumbar fusion), bilateral foot surgery, Bilateral tubal ligation, Bunionectomy, Cholecystectomy, EMG - Electromyography, gastric bypass, History of tonsillectomy, Total replacement of right knee joint. Discharge Vitals Temperature (Temporal Artery) 36.1 ?C Heart Rate (Peripheral) 75 Respiratory Rate 16 Blood Pressure 126/83 Height 165.0 cm Height 165 cm Weight 134.1 kg Weight 134.1 kg BMI 49.26 Medications What How Much When Instructions Unchanged alendronate (Fosamax 70 mg oral tablet) 1 Tablets By Mouth Saturday Unchanged apixaban By Mouth 2 times a day Unchanged ascorbic acid (Vitamin C 500 mg Tab) 1 Tablets By Mouth Every day Unchanged aspirin 81 Milligram By Mouth Every day Unchanged atorvastatin By Mouth Every day Unchanged daclizumab (Zinbryta) 150 Milligram Subcutaneous Once a month Unchanged ergocalciferol (Vitamin D) 50,000 International unit By Mouth Every week Unchanged famotidine 20 Milligram By Mouth Once a day (at bedtime) Unchanged ferrous sulfate 325 Milligram By Mouth Every day Unchanged gabapentin 1,200 Milligram By Mouth 2 times a day Unchanged glucosamine By Mouth Unchanged hydrocortisone topical (hydrocortisone topical 1% cream) 1 Application Topical 2 times a day Unchanged hydrOXYzine Unchanged lactulose Unchanged lidocaine topical (Lidoderm 5% Patch) 1 Patches Topical Unchanged lisinopril (lisinopril 5 mg Tab) 2 Tablets By Mouth Every day Unchanged magnesium oxide 400 Milligram By Mouth Once a day (at bedtime) Unchanged metformin 500 Milligram By Mouth 2 times a day Unchanged multivitamin (Vitamin B Complex oral tablet) 1 Tablets By Mouth Every day Unchanged multivitamin with minerals (Cerovite Advanced Formula) 1 Tablets By Mouth Every day Unchanged Non-Formulary Medication (multiple vitamin- vision formula with lutein) Every day Unchanged omega-3 polyunsaturated fatty acids (Fish Oil) 1,200 By Mouth Unchanged oxcarbazepine (Trileptal) 300 Milligram By Mouth 2 times a day Unchanged oxycodone 10 Milligram By Mouth Every 3 hours as needed for as needed for pain Unchanged oxycodone 10 Milligram By Mouth Saturday Unchanged oxycodone 10 Milligram By Mouth Saturday, Saturday, Saturday, , Saturday & Saturday Unchanged predniSONE 20 Milligram By Mouth Every day Unchanged tizanidine 8 Milligram By Mouth At bedtime Unchanged tizanidine (Zanaflex 4 mg Tab) 1 Tablets By Mouth Every day Unchanged tramadol 100 Milligram By Mouth 3 times a day Allergies No Known Allergies Problems Ongoing - Any problem that you are currently receiving treatment for. Benign essential hypertension Body fluid retention Carpal tunnel syndrome carpel tunnel Chronic back pain Hand pain Lymph edema Multiple sclerosis Osteoporosis Pes planus Historical - Any problem that you are no longer receiving treatment for. DVT Osteopenia [facility] Wilfrido 08-22-2020 CNPN Telephone ([employer]) DONNA MATHEWS ([id number]) 1960 F Date Time Provider Department 08/22/20 QUINTEN LEWIS During your visit today, we recorded the following information about you: Shahrzad Hannah Pss 08/22/2020 2:27 PM Signed Patient calling in regards to the [employer] company that provider advise patient call. States she ordered shoes and its been over a month but lost their number and has no way of getting in touch with them. Patient is requesting a call at [phone] Please advise. Alize Patton 08/23/2020 1:19 PM Signed Replied with phone number via my chart. Allergies As of Date: 08/22/2020 (No Known Allergies) Date Reviewed: 07/27/2020 Reviewed by: Alize ([facility]) Abdi - Fully Assessed Reason for Visit: Question [1327] Prescriptions as of 07/04/2021 - atorvastatin (LIPITOR) 80 mg tablet - traMADol (ULTRAM) 50 mg tablet Take 50 mg by mouth every 8 hours as needed. - tiZANidine (ZANAFLEX) 4 mg tablet Take 4 mg by mouth with meals and at bedtime. - FOLIC ACID/MV,FE,OTHER MIN/LUT (CERTAVITE WITH LUTEIN ORAL) Take by mouth. - Fish Oil-[place]iance-3 Fatty Acids (FISH OIL) 340-1,000 mg cap Take 2 capsules by mouth. - gabapentin (NEURONTIN) 600 mg tablet Take 600 mg by mouth twice daily. - alendronate (FOSAMAX) 70 mg tablet Take 70 mg by mouth once each week. - aspirin, enteric coated (ASPIRIN, ENTERIC COATED) 81 mg EC tablet Take 81 mg by mouth once daily. - polyethylene glycol 3350 (MIRALAX) 17 gram packet Take 1 Packet by mouth once daily as needed. - oxyCODONE immediate release (PERCOLONE) 5 mg immediate release tablet Take 1-2 tablets by mouth every 3 hours as needed. - cholecalciferol (VITAMIN D) 1,000 unit tab Take 1 tablet by mouth three times daily. May resume after taking one week course of 50,000uVit D (start on 05/24/2014) - lisinopril (ZESTRIL, PRINIVIL) 10 mg tablet Take 10 mg by mouth once daily. - calcium citrate 200 mg (950 mg) tab Take 1,900 mg by mouth once daily. - multivitamin with minerals tablet Take 1 tablet by mouth once daily. - Fingolimod (GILENYA) 0.5 mg cap Take 1 capsule by mouth once daily. - Dalfampridine (AMPYRA) 10 mg Tb12 Take 1 tablet by mouth twice daily. - OXcarbazepine 150 mg tablet Take 150 mg by mouth twice daily. - omeprazole 20 mg capsule Take 20 mg by mouth twice daily. - Ferrous Sulfate (IRON) 325 mg (65 mg iron) tablet Take 325 mg by mouth daily with breakfast. - ascorbic acid (VITAMIN C) 500 mg tablet Take 500 mg by mouth once daily. 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 She said she was molded for the AFO but has yet to get it. Physical Exam: The patient is seen in a large motorized wheelchair. ? The patient is alert and oriented x 3 in no apparent acute distress. Vascular: Pedal pulses are barely palpable DP and PT right. CFT is less than 3 seconds digits 1-5 right. Skin temperature is warm to cool from anterior knees to toes right. Some diminished varicosities right. Diminished pedal hair growth . ? Neuro: Light touch is intact to all quadrants of foot and ankle with no apparent sensory deficits right. ? Derm: The patient has some erythema of the right first toe with a small superficial ulcerative area approximately 3 x 3 mm without purulence drainage Ortho: Muscle strength is +5/5 for plantar flexors and inverters essentially was 0 out of 5 for dorsiflexors and everters. She has a rocker-bottom type foot with a varus deformity of the forefoot and a severe abduction deformity of the great toe that is fixed Assessment: Dropfoot of right lower extremity Iatrogenic great malunion right great toe Plan: Podiatric Office Visit- the etiology of the patient's complaint along with treatment options were explained to the patient in detail. Discussed results of clinical examination with the patient in detail along with treatment options Advised I think her biggest problem is her dropfoot that has not been addressed yet. Advised in my opinion I think she needs to get her AFO and see how she does. I am not sure the patient will ever be able to be ambulatory considering her stature and orthopedic issues. Explained to patient again that I think she is not a great surgical candidate to straighten her big toe at this time because of multiple issues and her bone stock is somewhat poor. The patient may follow-up as needed pending progress. Quinten Lewis DPM Referring Provider: SELF [[id number]] Allergies As of Date: 07/27/2020 (No Known Allergies) Date Reviewed: 07/27/2020 Reviewed by: Alize Land [facility] - Fully Assessed Reason for Visit: Neuropathy [1405] Primary Visit Diagnosis:Right foot drop [M21.371] Other Visit Diagnosis:Pain in toe of right foot [M79.674] Prescriptions as of 07/27/2020 Sig: ATORVASTATIN 80 MG TABLET TRAMADOL 50 MG TABLET Take 50 mg by mouth every 8 h* TIZANIDINE 4 MG TABLET Take 4 mg by mouth with meals* CERTAVITE WITH LUTEIN ORAL Take by mouth. OMEGA-3 FATTY ACIDS-FISH OIL * Take 2 capsules by mouth. GABAPENTIN 600 MG TABLET Take 600 mg by mouth twice da* ALENDRONATE 70 MG TABLET Take 70 mg by mouth once each* ASPIRIN 81 MG TABLET,DELAYED * Take 81 mg by mouth once jose* POLYETHYLENE GLYCOL 3350 17 G* Take 1 Packet by mouth once d* OXYCODONE 5 MG TABLET Take 1-2 tablets by mouth gely* CHOLECALCIFEROL (VITAMIN D3) * Take 1 tablet by mouth three * LISINOPRIL 10 MG TABLET Take 10 mg by mouth once jose* CALCIUM CITRATE 200 MG (950 M* Take 1,900 mg by mouth once d* MULTIVITAMIN WITH MINERALS TA* Take 1 tablet by mouth once d* FINGOLIMOD 0.5 MG CAPSULE Take 1 capsule by mouth once * DALFAMPRIDINE ER 10 MG TABLET* Take 1 tablet by mouth twice * OXCARBAZEPINE 150 MG TABLET Take 150 mg by mouth twice da* OMEPRAZOLE 20 MG CAPSULE,JERROD* Take 20 mg by mouth twice rachel* FERROUS SULFATE 325 MG (65 MG* Take 325 mg by mouth daily wi* ASCORBIC ACID (VITAMIN C) 500* Take 500 mg by mouth once rachel* Problem List As Of Date 07/27/2020 Noted Resolved Charcot's arthropathy [M14.60] 03/27/2013 Personal history of DVT (deep vein thrombosis) *09/29/2013 Femur fracture (HCC) [S72.90XA] 09/29/2013 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*04/28/2014 Encounter Status:Closed by QUINTEN LEWIS on 07/28/20 [facility] Urineon 06-06-2018 C Urine urine taken from cystoscope intraop for culture >100,000 cfu/ml Escherichia coli and 40,000 cfu/ml Enterococcus faecalis ORGANISM EC [employer] --- SUSCEPTIBILITY -- ORGANISM ID: 1 ANTIBIOTIC INTERPRETATION EVAN STATUS ORGANISM ECEC Amik S <=16 Verified Amox/Cla S <=8/4 Verified Amp R >16 Verified Amp/Sul I 16/ Verified Cefaz S <=8 Verified Cefep S <=4 Verified Cefo S <=2 Verified Ceftaz S <=1 Verified Ceftri S <=8 Verified Cefur S <=4 Verified Cipro S <=1 Verified Ertap S <=2 Verified Gent S <=4 Verified Imi S <=1 Verified Levo S <=2 Verified Nitro S <=32 Verified Pip/Felipe S <=16 Verified Tetra S <=4 Verified Tobra S <=4 Verified Tri/Sulf S <=2/38 Verified --- SUSCEPTIBILITY -- ORGANISM ID: 2 ANTIBIOTIC INTERPRETATION EVAN STATUS ORGANISM [employer] Amox/Cla <=4/2 Verified Amp S <=2 Verified Amp/Sul <=8/4 Verified Ceftri >32 Verified Cipro S <=1 Verified Clinda >4 Verified Dapto S <=0.5 Verified Eryth <=0.5 Verified Gent 8 Verified Gent-Syn S <=500 Verified Levo S <=1 Verified Linez S 2 Verified Nitro S <=32 Verified Ox >2 Verified Pen S 2 Verified Rif S <=1 Verified Tetra R >8 Verified Tri/Sulf > Verified Vanc S 1 Verified Normal [facility] Comment on above: Performed By: #### [id number] #### [facility] (DEFAULT) [address] [place] [address] Coding Summaryon 06-05-2018 Coding Summary CODING DATE: 06/05/2018 [facility] STATUS: Home PAYOR: Medicare [facility] APC DESCRIPTION 5372 Level 2 Urology and Related Services ADMIT DX: REASON FOR VISIT DX: R32 Unspecified urinary incontinence FINAL DX: PRINCIPAL: R32 Unspecified urinary incontinence SECONDARY: R93.41 Abnormal radiologic findings on diagnostic imaging of renal pelvis, ureter, or bladder G35 Multiple sclerosis N32.89 Other specified disorders of bladder PYMT PROC APC STAT DESCRIPTION DOCTOR NAME DATE 49180 7318 T Cystourethroscopy David Mejía MD 06/03/2018 (separate procedure) NOTE: The code number assigned matches the documented diagnosis and / or procedure in the patient's chart. However, the narrative phrase printed from the coding software may appear abbreviated, or result in slightly different terminology. Coded By: Jessica Valiente Date Saved: 06/05/2018 07:20 am [facility] History and Physicalon 06-05 History and Physical [id number] 0[facility] Consent Formson 06-04-2018 Consent Forms [id number]#1.00 [facility] Outside Recordson 06-04-2018 Outside Records [id number]#1.00 [facility] [facility] [place] 06-04-2018 Protein mass conc [id number] [facility] Inpatient Patient Summaryon 06-03-2018 Inpatient Patient Summary [address] [address] Patient Discharge Instructions Name: DONNA MATHEWS : 62 Patient Address: [address] [place] [address] Primary Care Provider: Name: Harjit Lopez MD After you are discharged if you find you have any questions, please, call [phone] ext [phone] to speak to a nurse. Discharge Diagnosis: Urinary incontinence If you received any narcotics, sedation, or any other medication that causes drowsiness for the next 24 hours, unless otherwise directed: ? Do not drive a car. ? Do not operate machinery such as power tools, lawn mowers, drills, sewing machines, or stoves ? Avoid alcoholic beverages and drugs for allergies, nerves, or sleep ? Do not make important personal or business decisions or sign any legal documents [facility] would like to thank you for allowing us to assist you with your healthcare needs. The following includes patient education materials and information regarding your injury/illness. SILKE MATHEWSANCE Nelly has been given the following list of follow-up instructions, prescriptions, and patient education materials: Follow-up Instructions With: Address: When: David Mejía [address] [place] [address], [address] [place] [address] Business (1) With: Address: When: Harjit Lopez [address] [place] [address] Business (1) Medications During the course of your visit, your medication list was updated with the most current information. The details of those changes are reflected below: Medications to Continue That Have Not Changed Other Medications Al hydroxide/Mg hydroxide/simethicone (Maalox Advanced Maximum Strength oral suspension) 20 Milliliter Oral 4 times a day. between meals and at bedtime. alendronate (alendronate 70 mg oral tablet) 1 tab(s) Oral every week. ascorbic acid (Vitamin C 500 mg oral tablet) 1 tab(s) Oral every day. aspirin (aspirin 81 mg oral delayed release tablet) 1 tab(s) Oral every day. benzocaine-dextrometho rphan (Cepacol Sore Throat & Cough 7.5 mg-5 mg oral lozenge) 1 lozenge(s) Oral Every 4 hours as needed for cough. calcium citrate (calcium citrate 950 mg (200 mg elemental calcium) oral tablet) 2 tab(s) Oral every day. ergocalciferol (Vitamin D2 50,000 intl units (1.25 mg) oral capsule) 1 cap(s) Oral Every Saturday. famotidine (famotidine 20 mg oral tablet) 1 tab(s) Oral At bedtime. ferrous sulfate (ferrous sulfate 325 mg (65 mg elemental iron) oral tablet) 1 tab(s) Oral every day. gabapentin (gabapentin 600 mg oral tablet) 2 tab(s) Oral 2 times a day. hydrOXYzine (hydrOXYzine hydrochloride 25 mg oral tablet) 1 tab(s) Oral 4 times a day as needed for itching. lisinopril (lisinopril 10 mg oral tablet) 1 tab(s) Oral every day. loperamide (loperamide 2 mg oral capsule) 1 cap(s) Oral Every 4 hours as needed for loose stool. magnesium oxide (magnesium oxide 400 mg oral tablet) 1 tab(s) Oral every day. metFORMIN (metFORMIN 500 mg oral tablet) 1 tab(s) Oral 2 times a day. methylPREDNISolone (SOLU-Medrol 125 mg preservative-free injection) 500 Milligram Intravenous once a month. modafinil (modafinil 200 mg oral tablet) 1 tab(s) Oral once a day (in the morning). multivitamin (Vitamin B Complex oral capsule) 1 cap(s) Oral every day. multivitamin with minerals (CertaVite with Antioxidants oral tablet) 1 tab(s) Oral every day. multivitamin with minerals (Ocuvite Lutein oral capsule) 1 tab(s) Oral every day. omega-3 polyunsaturated fatty acids (Fish Oil 1200 mg oral capsule) 2 tab(s) Oral every day. OXcarbazepine (OXcarbazepine 300 mg oral tablet) 1 tab(s) Oral 2 times a day. oxyCODONE (oxyCODONE 5 mg oral tablet) 1 tab(s) Oral every day. polyethylene glycol 3350 (MiraLax oral powder for reconstitution) 17 gram Oral every day. dissolve in water before taking. tiZANidine (tiZANidine 4 mg oral tablet) 2 tab(s) Oral At bedtime. tiZANidine (tiZANidine 4 mg oral tablet) 1 tab(s) Oral every day. traMADol (traMADol 50 mg oral tablet) 1 tab(s) Oral 3 times a day as needed as needed for pain. It is important to always keep an active list of medications available so that you can share with other providers and manage your medications appropriately. As an additional courtesy, we are also providing you with your final active medications list that you can keep with you. Al hydroxide/Mg hydroxide/simethicone (Maalox Advanced Maximum Strength oral suspension) 20 Milliliter Oral 4 times a day. between meals and at bedtime. alendronate (alendronate 70 mg oral tablet) 1 tab(s) Oral every week. ascorbic acid (Vitamin C 500 mg oral tablet) 1 tab(s) Oral every day. aspirin (aspirin 81 mg oral delayed release tablet) 1 tab(s) Oral every day. benzocaine-dextrometho rphan (Cepacol Sore Throat & Cough 7.5 mg-5 mg oral lozenge) 1 lozenge(s) Oral Every 4 hours as needed for cough. calcium citrate (calcium citrate 950 mg (200 mg elemental calcium) oral tablet) 2 tab(s) Oral every day. ergocalciferol (Vitamin D2 50,000 intl units (1.25 mg) oral capsule) 1 cap(s) Oral Every Saturday. famotidine (famotidine 20 mg oral tablet) 1 tab(s) Oral At bedtime. ferrous sulfate (ferrous sulfate 325 mg (65 mg elemental iron) oral tablet) 1 tab(s) Oral every day. gabapentin (gabapentin 600 mg oral tablet) 2 tab(s) Oral 2 times a day. hydrOXYzine (hydrOXYzine hydrochloride 25 mg oral tablet) 1 tab(s) Oral 4 times a day as needed for itching. lisinopril (lisinopril 10 mg oral tablet) 1 tab(s) Oral every day. loperamide (loperamide 2 mg oral capsule) 1 cap(s) Oral Every 4 hours as needed for loose stool. magnesium oxide (magnesium oxide 400 mg oral tablet) 1 tab(s) Oral every day. metFORMIN (metFORMIN 500 mg oral tablet) 1 tab(s) Oral 2 times a day. methylPREDNISolone (SOLU-Medrol 125 mg preservative-free injection) 500 Milligram Intravenous once a month. modafinil (modafinil 200 mg oral tablet) 1 tab(s) Oral once a day (in the morning). multivitamin (Vitamin B Complex oral capsule) 1 cap(s) Oral every day. multivitamin with minerals (CertaVite with Antioxidants oral tablet) 1 tab(s) Oral every day. multivitamin with minerals (Ocuvite Lutein oral capsule) 1 tab(s) Oral every day. omega-3 polyunsaturated fatty acids (Fish Oil 1200 mg oral capsule) 2 tab(s) Oral every day. OXcarbazepine (OXcarbazepine 300 mg oral tablet) 1 tab(s) Oral 2 times a day. oxyCODONE (oxyCODONE 5 mg oral tablet) 1 tab(s) Oral every day. polyethylene glycol 3350 (MiraLax oral powder for reconstitution) 17 gram Oral every day. dissolve in water before taking. tiZANidine (tiZANidine 4 mg oral tablet) 2 tab(s) Oral At bedtime. tiZANidine (tiZANidine 4 mg oral tablet) 1 tab(s) Oral every day. traMADol (traMADol 50 mg oral tablet) 1 tab(s) Oral 3 times a day as needed as needed for pain. Take only the medications listed above. Contact your doctor prior to taking any medications not on this list. Diet & Activity Patient Activity Level: As Tolerated Patient Diet: Regular Patient Activity Restrictions: Comment: Patient education materials, if any, will display below Viruses or Bacteria What?s got you sick? Antibiotics only treat bacterial infections. Viral illnesses cannot be treated with antibiotics. When an antibiotic is not prescribed, ask your healthcare professional for tips on how to relieve symptoms and feel better. Usual Cause Illness Viruses Bacteria Antibiotic Needed Cold/Runny Nose NO Bronchitis/Chest Cold (in otherwise healthy children and adults) NO Whooping Cough Yes Flu NO Strep Throat Yes Sore Throat (except strep) NO Fluid in the middle ear (otitis media with effusion) NO Urinary Tract Infection Yes Antibiotics Aren?t Always the Answer www.cdc.gov/getsmart GET SMART Know When Antibiotics Work U.S. Department of Health and Human Services Centers for Disease Control and Prevention November 2013 [facility] MAGR Intraoperative Recordon 06-03-2018 MAGR Intraoperative Record MAGR Intra-Op Record Summary Primary Physician: David Mejía MD Finalized Date/Time: 06/03/18 16:22:13 Pt. Name: DONNA MATHEWS/Sex: 1960 FEMALE Med Rec #: [id number] Physician: David Mejía MD Financial #: [id number] Pt. Type: D Room/Bed: / Admit/Disch: 06/03/18 12:10:14 - Institution: Case Times MAGR Entry 1 Patient In Room Time 06/03/18 15:45:00 Out Room Time 06/03/18 16:04:00 Anesthesia Start Time 06/03/18 15:52:00 Stop Time 06/03/18 16:03:00 Surgery Start Time 06/03/18 15:52:00 Stop Time 06/03/18 16:03:00 Last Modified By: Irlanda Knox RN 06/03/18 16:03:18 Case Attendance MAGR Entry 1 Entry 2 Entry 3 Case Attendee David Mejía MD, Barbara RN Nikolaus, Linda M Role Performed Surgeon - Primary Sock Turner Sc[employer] Personnel Time In 06/03/18 15:45:00 06/03/18 15:45:00 06/03/18 15:45:00 Time Out 06/03/18 16:04:00 06/03/18 16:04:00 06/03/18 16:04:00 Procedure Cystoscopy Local Cystoscopy Local Cystoscopy Local Last Modified By: Irlanda Knox RN, Barbara RN Long, Barbara RN 06/03/18 16:03:21 06/03/18 16:03:21 06/03/18 16:03:21 Surgical Procedures MAGR Pre-Care Text: A.20 Verifies operative procedure, surgical site, and laterality Im.150 Develops individualized plan of care Entry 1 Procedure Cystoscopy Local Primary Procedure Yes Primary Surgeon Alfonzo BROWN, David Vega Surgeon Comment CYSTOSCOPY Start 06/03/18 15:52:00 Stop 06/03/18 16:03:00 Anesthesia Type Local Surgical Service Urology Wound Class Clean-Contaminated Last Modified By: Irlanda Knox RN 06/03/18 16:03:25 Post-Care Text: O.730 The patient's care is consistent with the individualized perioperative plan of care General Case Data MAGR Pre-Care Text: A.350.1 Classifies surgical wound Entry 1 Case Information OR MAGR OR 03 Case Level Level 2 Wound Class Clean-Contaminated Specialty Urology ASA Class 2 Diagnosis Preop Diagnosis URINARY INCONTINENCE Postop Same As Preop Yes Postop Diagnosis URINARY INCONTINENCE Last Modified By: Irlanda Knox RN 06/03/18 16:00:38 Post-Care Text: O.760 Patient receives consistent and comparable care regardless of the setting Time Out MAGR Entry 1 Time out date/time 06/03/18 15:51:00 All team members Yes have introduced themselves by name and role Surgeon, Yes Surgeon reviews Yes anesthesia, nurse critical or confirm patient, unexpected steps, site, procedure operative duration, anticipated blood loss Anesthesia team No Nursing team Yes reviews any reviews sterility patient-specific (including concerns indicator results) and equipment issues/concerns Antibiotic Is essential N/A imaging displayed? Last Modified By: Irlanda Knox RN 06/03/18 15:58:48 Patient Positioning MAGR Pre-Care Text: A.280 Identifies baseline musculoskeletal status Im.40 Positions the patient Im.80 Applies safety devices Entry 1 Procedure Cystoscopy Local Body Position Supine Left Arm Position Resting at Side Right Arm Position Resting at Side Left Leg Position Extended Right Leg Position Extended Press Points Checked Yes Outcome Met (O.80) Yes Last Modified By: Irlanda Knox RN 06/03/18 15:52:54 Post-Care Text: E.290 Evaluates musculoskeletal status O.80 Patient is free from signs and symptoms of injury related to positioning Skin Prep MAGR Pre-Care Text: A.30 Verifies allergies Im.270 Performs skin preparation Im.270.1 Implements protective measures to prevent skin and tissue injury due to chemical sources Entry 1 Skin Prep Syntegrity Prep Agents (Im.270) Other Prep By Irlanda Knox RN Prep Area (Im.270) Perineum Skin Prep Agent Dry Yes Without Pooling Hair Removal Syntegrity Hair Removal Methods No hair removal performed Outcome Met (O.100) Yes Last Modified By: Irlanda Knox RN 06/03/18 15:53:38 Post-Care Text: E.10 Evaluates for signs and symptoms of physical injury to skin and tissue O.100 Patient is free from signs and symptoms of chemical injury Cultures and Specimens MAGR Pre-Care Text: A.350 Assesses susceptibility for infection A.10 Confirms patient identity Im.320 Manages culture specimen collection Im.330 Manages specimen handling and disposition Entry 1 Cultures Ordered No Specimens Ordered No Outcome Met (O.40) Yes Last Modified By: Irlanda Knox RN 06/03/18 15:57:10 Post-Care Text: E.40 Evaluates correct processes have been performed for specimen handling and disposition O.40 Patient's specimen(s) is managed in the appropriate manner General Comments: urine culture sent Departure from OR MAGR Entry 1 Present on Depart N/A Via Stretcher Post-op Destination PACU II Skin DFO Condition Dry Description Condition Warm Description Report Given To Gertrude Felix RN Airway Maintenance Patient Status Stable Oxygen in Use? No Last Modified By: Irlanda Knox RN 06/03/18 16:22:00 Case Comments Finalized By: Irlanda Knox RN Document Signatures Signed By: Irlanda Knox RN 06/03/18 16:03 Irlanda Knox RN 06/03/18 16:22 Unfinalized History Date/Time Username Reason for Unfinalizing Freetext Reason for Unfinalizing 06/03/18 16:21 DIANA Modify Pick List [facility] MAGR Preoperative Recordon 0 06-03-2018 MAGR Preoperative Record MAGR Pre-Op Record Summary Primary Physician: David Mejía MD Finalized Date/Time: 06/03/18 15:51:38 Pt. Name: DONNA MATHEWS/Sex: 1960 FEMALE Med Rec #: [id number] Physician: David Mejía MD Financial #: [id number] Pt. Type: D Room/Bed: / Admit/Disch: 06/03/18 12:10:14 - Institution: Pre-Op Case Times MAGR Pre-Care Text: Patient will be optimally prepared for surgery. Patient is free from s/s of injury. Provide information to patient/family related to plan of care. Verify patient allergies. Confirm identity and verify consent before the operative or invasive procedure. Entry 1 Patient Arrival Time 06/03/18 12:30:00 Preop Departure 06/03/18 15:40:00 Last Modified By: Irlanda Knox RN 06/03/18 15:51:36 Post-Care Text: Patient is prepared mentally and physically and is ready for surgery. The patient remains free from s/s of injury. Patient/family express understanding of plan of care and participate in decisions affecting his or her perioperrative plan of care. Allergies documented appropriately. Patient identifiers and consent correct. General Comments: Pt arrives per W/C. Pt denies any CP, SOB, Hx of S/S of flu, or sleep a pnea. Finalized By: Irlanda Knox RN Document Signatures Signed By: Irlanda Knox RN 06/03/18 15:51 [facility] Patient Handouton 06-03-2018 Patient Handout [facility] Progress Note - Nurseon 05-10 Protein mass conc Talked with Yesenia @ [facility], instructed to have pt here @ 1030 on 06-03-18 and to fax Med. list-verbalized understanding. [Electronically Signed on: 06/02/2018 10:58 EDT] Cherise Espinoza RN [Verified on: 06/02/2018 10:58 EDT] Cherise Espinoza RN [facility] Vital Signs Date Time Vital Sign Value Performing Clinician Facility 05-02-2023 12:12-0500 Body height 167.6 cm Krystin Salcedo MD Work Phone: [facility] 05-02-2023 12:12-0500 Body mass index (BMI) [Ratio] 47.64 kg/m2 Krystin Salcedo MD Work Phone: [facility] 05-02-2023 12:12-0500 Body weight 133.81 kg Krystin Salcedo MD Work Phone: [facility] 05-02-2023 12:12-0500 Diastolic blood pressure 70 mm[Hg] Krystin Salcedo MD Work Phone: [facility] 05-02-2023 12:12-0500 Systolic blood pressure 138 mm[Hg] Krystin Salcedo MD Work Phone: [facility] 01-24-2021 09:20-0500 Body height 170.18 cm Kendell Garcia Other [facility] Other 01-24-2021 09:20-0500 Body mass index (BMI) [Ratio] 49.17 kg/m2 Kendell Garcia Other [facility] Other 01-24-2021 09:20-0500 Body weight 142.43 kg Kendell Garcia Other [facility] Other 01-24-2021 09:20-0500 Diastolic blood pressure 86 mm[Hg] Kendell Garcia Other [facility] Other 01-24-2021 09:20-0500 Systolic blood pressure 134 mm[Hg] Kendell Garcia Other [facility] Other Encounters Encounter Date Encounter Type Care Provider Facility Start: 05-02-2023 End: 05-02-2023 ambulatory KRYSTIN SALCEDO [facility] Start: 05-02-2023 End: 05-02-2023 Postop follow up visit related to original px Krystin Salcedo MD [facility] Phone[facility] Comment on above: Morbid obesity ([facility]) (Primary Dx); [place] stage renal disease[place] Arteriovenous fistula stenosis, initial encounter [place] Start: 04-17-2023 End: 04-18-[address] [facility] Start: 04-12-2023 End: 05-10-2023 ambulatory [facility] Start: 04-01-2023 End: 04-01-2023 ambulatory [facility] Start: 03-05-2023 Telephone encounter Elba Ramirez [facility] On[facility] Start: 02-28-2023 End: 03-11-2023 ambulatory [facility] Start: 02-25-2023 End: 02-25-2023 Evaluation and management of [facility] Start: 02-25-2023 End: 02-25-2023 Evaluation and management of inpatient KRYSTIN Vega SETONY [facility] Start: 02-19-2023 ambulatory Rosina Hodges acility:[facility] Start: 07-04-2022 End: 07-05-2022 ambulatory NARENDRANATH LAKSHMIPATHY . Facility:[facility] Start: 06-07-2022 End: 06-08-2022 ambulatory NARENDRANATH LAKSHMIPATHY . Facility:[facility] Start: 06-07-2022 End: 06-08-2022 ambulatory NARENDRANATH LAKSHMIPATHY . Facility:[facility] Start: 05-10-2022 End: 05-11-2022 ambulatory SKYLER PIÑA Facility:[facility] Start: 04-12-2022 End: 04-13-2022 ambulatory GLORY REX Facility:[facility] Start: 01-25-2022 End: 01-26-2022 ambulatory GLORY REX Facility:[facility] Start: 10-31-2021 End: 11-01-[address] JARAD GAGNON . Facility:[facility] Start: 10-18-2021 End: 10-19-[address] JARAD GAGNON . Facility:[facility] Start: 07-27-2021 End: 07-28-[address] JARAD GAGNON . Facility:[facility] Start: 07-11-[address] JARAD GAGNON . Faci lity:[facility] Start: 02-21-2021 End: 02-21-2021 ambulatory Kendell Garcia Other [facility] Other Start: 02-21-2021 Telephone encounter Kendell Garcia [facility] Start: 01-24-2021 End: 01-24-2021 ambulatory Kendell Garcia Other [facility] [employer] Other Start: 01-24-2021 Office outpatient ne w 45 minutes Kendell Garcia [facility] Neurosurgery Start: 08-22-2020 Telephone encounter José Lewis DPM Work Phone: Orthopaedics Comment on above: Question Start: 07-09-2018 End: 07-09-2018 Patient encounter procedure DAVID MEJÍA [facility] Start: 06-03-2018 End: 06-26-2018 Patient encounter procedure David Mejía Facility:[facility] Procedures Date Procedure Procedure Detail Performing Clinician Start: 09-13-2022 Adult depression scr eening assessment Elba Hernandez Start: 07-09-2018 DISCHARGE PATIENT MARTIN MEJÍA Plan of Treatment Date Care Activity Detail Author Start: 12-08-2028 Subsequent hospital visit by physician 12/08/2028 7:37 AM EDT Hospital Encounter [facility] [address] [place] [address] Harjit Lopez MD [facility] [place] [address] Chronic kidney disease (Primary Dx); Anemia; Multiple sclerosis (CMS-HCC); CKD (chronic kidney disease) Discharge Disposition: Home [facility] Comment on above: Chronic kidney disea se (Primary Dx); Anemia; Multiple sclerosis (CMS-HCC); CKD (chronic kidney disease) Start: 01-24-2025 LIPID SCREEN LIPID SCREEN [facility] Start: 05-02-2024 Adult BMI Screening Adult BMI Screen ing [facility] Start: 05-02-2024 Tobacco Screening Tobacco Screening [facility] Start: 02-26-2024 Adult BMI Screening Adult BMI Screen ing [facility] Start: 02-26-2024 Tobacco Screening Tobacco Screening [facility] Start: 09-14-2023 Depression Screening Depression Scre ening [facility] Start: 05-09-2023 End: 05-09-2023 Patient encounter procedure 05/09/2023 1:30 PM EST Office Visit [facility] [address] [place] [address] Ivette Sanchez, [employer] WORK[employer] [address] [place] [address] [facility] Start: 05-02-2023 End: 05-02-2024 RFA Lower extremity vessels - left Views W contrast IR angiography extremity left Imaging Routine Morbid [place]D (end stage renal disease) [place] Arteriovenous fistula stenosis, initial encounter [place] Expected: 05/02/2023, Expires: 05/02/2024 [place] Work Phone: Comment on above: Expected: 05/02/2023 , Expires: 05/02/2024 Start: 03-25-2023 End: 03-25-2023 Patient encounter procedure 03/25/2023 2:10 PM EST Office Visit [facility] [address] [place] [phone] Alvaro Howard MD [facility] [place] [address] [facility] Start: 11-09-2022 COVID-19 Vaccine ( season) COVID-19 Vaccine ( season) [facility] Start: 11-09-2022 Influenza vaccination Influenza Vacc ine [facility] Start: 11-09-2021 Influenza vaccination INFLUENZ A (Season Ended) [facility] Start: 08-28-2020 COVID-19 VACCINE (3 - Booster for Pfizer series) COVID-19 VACCINE (3 - Booster for Pfizer series) [facility] Start: 05-25-2017 DIABETES SCREEN DIABETES SCREEN [facility] Start: 10-26-2011 Administration of varicella zoster vaccine Zoster (Shingles) Vaccine (1 of 2) [facility] Start: 10-26-2011 SHINGRIX VACCINE (1 of 2) SHINGRIX VACCINE (1 of 2) [facility] Start: 2006 COLOGUARD (FIT-DNA) COLOGUARD (FIT-D NA) [facility] Start: 2006 Colonoscopy COLONOSCOPY [facility] Start: 2006 COLORECTAL CANCER SCREENING COLORECTAL CANCER SCREENING [facility] Start: [address] COLONOGRAPHY [facility] Start: 2006 FECAL OCCULT BLOOD FECAL OCCULT BLOO D [facility] Start: 2006 SIGMOIDOSCOPY SIGMOIDOSCOPY [facility] Start: 2001 Mammography MAMMOGRAM [facility] Start: 10-26-1991 HPV TESTING HPV TESTING [facility] Start: 1982 PAP TESTING PAP TESTING [facility] Start: 1982 Screening for malign ant neoplasm of cervix Pap Smear [facility] Start: 1980 DTaP,Tdap and Td Vaccines (1 - Tdap) DTaP,Tdap and Td Vaccines (1 - Tdap) [facility] Start: 1980 Urine microalbumin profile DTAP,TDAP,TD (1 - Tdap) [facility] Start: 10-26-1979 Adult BMI Follow Up Plan Adult BMI Follow Up Plan [facility] Start: 10-26-1979 HEPATITIS C SCREENING HEPATITIS C SC REENING [facility] Start: 10-26-1979 HIV SCREENING HIV SCREENING [facility] Start: 1973 Adult depression screening assessment DEPRESSION SCREENING [facility] Immunizations Immunization Date Immunization Notes Care Provider Sandeep parra 11-03-2018 influenza, injectabl e, quadrivalent, preservative free [facility] 11-03-2018 influenza virus vaccine, unspecified formulation [facility] 10-14-2018 influenza, injectabl e, quadrivalent, preservative free Elba [facility] 08-11-2018 influenza, injectabl e, quadrivalent, preservative free El[facility] 12-22-2017 pneumococcal polysaccharide vaccine, 23 valent El[facility] 11-09-2016 influenza, injectabl e, quadrivalent, preservative free [facility] 12-09-2012 pneumococcal polysaccharide vaccine, 23 valent Quinten Lewis DPM Work Phone: [facility] Payers Date Payer Category Payer Self-pay 2023 Private Health Insurance [facility] [id number] 2023-Present [phone] [address] [address] [place] [address] [id number] 2022 Medicare [employer] MEDICARE UHC MEDICARE ADVANTAGE PPO [id number] 2022-Present [phone] [address] [address] [place] [address] [id number] 2020 Medicaid MEDICAID [facility] MEDICAID [id number] 2020-Present [phone] [address] [place] [address] Medicaid [id number] 2017 Medicaid MEDICAID [facility] EDICAID [id number] 2017-Present [phone] [address] [place] [address] [id number] 2002 Medicare MEDICARE MEDICAR E A AND B [id number] 2002-Present [phone] [address] [address] [place] [address] Medicare [id number] [id number] 1961 Unknown [id number] 2.16.840.1.055638.3.579. 2.718 1961 Unknown [id number] 2.16.840.1.885291.3.579. 2.177 1961 Unknown [id number] 2.16.840.1.399600.3.579. 2.593 1961 Unknown [id number] 2.16.840.1.881678.3.579. 2.593 1961 Unknown [id number] 2.16.840.1.890100.3.579. 2.593 1961 Unknown [id number] 2.16.840.1.238781.3.579. 2.593 1961 Unknown [id number] 2.16.840.1.937365.3.579. 2.593 1961 Unknown [id number] 2.16.840.1.575798.3.579. 2.593 1961 Unknown [id number] 2.16.840.1.531478.3.579. 2.593 1961 Unknown [id number] 2.16.840.1.521035.3.579. 2.593 1961 Unknown [id number] 2.16.840.1.977019.3.579. 2.593 1961 Unknown [id number] 2.16.840.1.096179.3.579. 2.593 1961 Unknown [id number] 2.16.840.1.579896.3.579. 2.593 1961 Unknown [id number] 2.16.840.1.245065.3.579. 2.1286 1961 Unknown [id number] 2.16.840.1.299032.3.579. 2.1286 1961 Unknown [id number] 2.16.840.1.566048.3.579. 2.1286 1961 Unknown [id number] 2.16.840.1.952082.3.579. 2.1286 1961 Unknown [id number] 2.16.840.1.714232.3.579. 2.1286 1961 Unknown [id number] 2.16.840.1.312083.3.579. 2.1286 1961 Unknown [id number] 2.16.840.1.786116.3.579. 2.1286 1961 Unknown [id number] 2.16.840.1.372635.3.579. 2.1286 1959 Medicaid [id number] 1958 Medicare [id number] 1958 Medicare [id number] Unknown [id number] 2.16.840.1.668519.3.579. 2.531 Social History Date Type Detail Facility Start: 03-27-2013 End: 09-13-2022 Tobacco smoking status OKIS Never smoked tobacco [facility] Start: 03-27-2013 End: 09-13-2022 Tobacco use and exposure Smokeless tobacco non-user [facility] Start: 05-05-2014 Alcohol intake Current drinke r of alcohol (finding) [facility] Start: 03-27-2013 History SDOH Alcohol Comment Occasional [facility] Start: 1960 Sex Assigned At Not on file [facility] Start: 06-27-2020 End: 07-27-2020 Exposure to SARS-CoV-2 (event) Not sure [facility] Start: 03-22-2020 End: 09-13-2022 Sex Assigned At [facility] Other Start: 02-26-2023 End: 05-02-2023 Alcohol intake Ex-drinker (finding) [facility] Start: 03-22-2020 End: 09-13-2022 History of Social function [facility] How often to you hav e a drink containing alcohol? Monthly or less [facility] How many standard drinks containing alcohol do you have on a typical day? 1 or 2 [facility] How often do you hav e 6 or more drinks on 1 occasion? Never [facility] Adolescent depressio n screening assessment 0 [facility] Medical Equipment Procedure Code Equipment Code Equipment Origin al Text Equipment Identifier Dates Graft Bn Canc 30 ml Allgrft - [id number] Start: 05-20-2014 Comment on above: Description: GRAFT B ONE CANC. Jxr-Ew-G-Kind Implant - [id number] Start: 10-01-2013 Comment on above: Description: Glenis underwood Spiral Blade Qjt-Tz-W-Kind Implant - [id number] Start: 05-20-2014 Comment on above: Description: 4.5 mm VA-LCP plate, C1713 PLATE Mvx-Im-I-Kind Implant - [id number] Start: 05-20-2014 Comment on above: Description: 5.0 x 3 4mm locking screw, C1713 SCREW Pml-Qq-D-Kind Implant - [id number] Start: 05-20-2014 Comment on above: Description: 5.0 mm x 60mm locking screw, C1713 Ywo-Un-Y-Kind Implant - [id number] Start: 05-20-2014 Comment on above: Description: 5.0 mm x 65mm locking screw, C1713 SCREW Ivq-Qo-R-Kind Implant - [id number] Start: 05-20-2014 Comment on above: Description: 5.0 mm x 70 mm locking screw, C1713 SCREW Nail 12mm 380mm Fem Nlex Im - [id number] Start: 10-01-2013 Comment on above: Description: C1713 N AIL 12MM 380MM FEM NLEX IM Cap End 0mm Fem Ext Strdr Rcs - [id number] Start: 10-01-2013 Screw Bn 5mm 44m m Nlex Ti Ft - [id number] Start: 10-01-2013 Screw Bn 5mm 40m m Nlex Ti Ft - [id number] Start: 10-01-2013 Screw Bn 5mm 66m m Nlex Ti Fem - [id number] Start: 10-01-2013 Comment on above: Description: C1713 S CREW BN 5MM 66MM NLEX TI FEM Screw Bn 4.5mm 40mm Lcp Ss - [id number] Start: 05-20-2014 Screw Bn 4.5mm 42mm Lcp Ss - [id number] Start: 05-20-2014 Screw Bn 4.5mm 46mm Lcp Ss - [id number] Start: 05-20-2014 Screw Bn 4.5mm 32mm Lcp Ss - [id number] Start: 05-20-2014 Screw Bn 4.5mm 34mm Lcp Ss - [id number] Start: 05-20-2014 Screw Bn 4.5mm 36mm Lcp Ss - [id number] Start: 05-20-2014 Screw Bn 4.5mm 38mm Lc Dcp Dhs - [id number] Start: 05-20-2014 Set Cth 24cm 14f r 18ga Str Triniflex Splt3 Bsc Intro Ndl Gw Rpl [id number] - [id number] [id number], [id number] FDA Start: 09-07-2022 Clinical Notes 07-28-2020 to 05-02-2023 Krystin Salcedo MD - 05/02/2023 12:00 PM ESTTelephone Encounter - Elba Hernandez - 03/05/2023 3:07 PM ESTTelephone Encounter - Elba Hernandez - 03/05/2023 3:07 PM EST Note Date & Type Note Facility 05-02-2023 History of Presen t illness Narrative Images from the original note were not included. Subjective Patient ID: Donna Mathews is a 62 y.o. female. Chief Complaint No chief complaint on file. DONTRELL Sosa is seen today with complaint of left upper arm pain with arm movement. She points to her upper arm just inferior to the shoulder itself. As long as she holds still, this causes her no discomfort. She believes that her discomfort began shortly after her left upper arm dialysis access lipectomy was performed. She has had no pain in the hand, no ulceration, no swelling. Objective Vitals BP 138/70 (BP Site: Right Arm, BP Postition: Sitting, BP CUFF SIZE: M (9-13 inches)) Ht 167.6 cm (5' 5.98 ) Wt 133.8 kg (295 lb) BMI 47.64 kg/m Physical Exam Physical Exam Morbidly obese left upper arm. Transverse incisions from lipectomy of healed completely. While the vein is visible at the base of these incisions, the thrill is fairly weak. Is more intense near the arterial anastomosis in the proximal left forearm. No sign of digital ischemia or venous congestion proximally. All incisions are healed. Studies Reviewed Bedside duplex examination demonstrates a 6-7 mm diameter cephalic vein, readily accessible from the antecubital crease to at least the mid upper arm. Color Doppler flow however demonstrates patency but flow is not fast. Hi velocities noted at the arterial anastomosis, with probable stenosis. Vas dialysis access duplex Height: 167.6 cm (5' 6 ) Weight: 133.8 kg (295 lb) Blood Pressure: Not recorded Date of Study: 04/17/23 Ordering Provider: Ziyad Ulrich APRN-[employer] Clinical Indications: ESRD (end stage renal disease) (CMS-HCC) [N18.6 (ICD-10-CM)], A-V fistula (CMS-HCC) [I77.0 (ICD-10-CM)] Interpreting Physicians Performing Staff Roseanne Garcia MD Tech: Roseann Renner RDMS Patient Information Patient Name Donna Mathews Legal Sex Female Interpretation Summary Left: Patent dialysis noted. Brachial artery volume flow was 803 ml/min. Average flow volume within the access was 413 ml/min. Arterial anastomosis measures 1.8 mm (morales scale) with velocity of 619/471 cm/sec angle corrected and 436/335 cm/sec at zero degree angle. Proximal outflow vein volume flow was 334 ml/min. General: Upper arm brachial artery to cephalic vein dialysis access. History of lipectomy performed over the dialysis access on 02/25/2023. Suboptimal flow at 340-450 cc/minute. Vein diameter however is excellent. Assessment Diagnoses and all orders for this visit: Morbid [place] stage renal disease[place] Arteriovenous fistula stenosis, initial encounter [place] Plan Plan Will arrange for fistula g to be obtained. At the time of the patient's operation, the flow through the vein was much better, based on physical examination. We should rule out presence or absence of jimi anastomotic stenosis. A referral to interventional radiology will be made for formal retrograde fistulogram and probable balloon angioplasty/formal revision of arterial anastomosis. Discussed with patient and caregiver. All questions answered. With regards to the persistent left upper arm pain, I suspect this is related to old shoulder injury. Patient has been involved with pain management for pain in this area for number of years. She is scheduled to follow up with them sometime next week. Patient will need to travel from [facility]. Their phone number is [phone]. documented in this encounter [facility] 03-05-2023 Miscellaneous Notes DARY CALLED TO CANCEL SHE DOES NOT WANT TO RESCHEDULE AT THIS TIME documented in this encounter [facility] 03-05-2023 Telephone encounter Note DARY CALLED TO CANCEL SHE DOES NOT WANT TO RESCHEDULE AT THIS TIME [facility] 06-08-2022 Note PROCEDURE: XR SHOULD ER LT 2V or > COMPARISON: None. HISTORY: Tear of left rotator cuff FINDINGS: BONES:No acute fracture or dislocation. Moderate acromioclavicular joint osteoarthropathy. Severe glenohumeral joint osteoarthritis SOFT TISSUES:Negative. No visible soft tissue swelling. EFFUSION:None visible. OTHER: Negative. IMPRESSION: Moderate to severe osteoarthritis Electronically authenticated by: EL SALCEDO Date: 2022-06-08 07:[address] [facility] 06-07-2022 Note CONSULTATION CONSULTATION DATE: 06/07/2022 TO: PLACIDO Holguin CHIEF COMPLAINT: Includes severe left shoulder pain, left sided neck pain. HISTORY: She reports the pain as being 5-7/10 pain, sharp in character, increased with cervical extension, lifting maneuvers, pushing and pulling maneuvers. She feels most comfortable in the semi-recumbent position. Denies any change in bowel and bladder habits or new sensorimotor change in her upper extremities. EXAM: Notable for patient having no clinical radiculopathy or myelopathy involving her upper extremities. She did have severe pain with cervical facet loading maneuvers on the left side from C5-C7 with myofascial spasm of the cervical paravertebral muscles on the left side. She also has pain with left shoulder extension, internal rotation and adduction, also pain with left shoulder flexion with internal rotation and left shoulder abduction. Range of motion was fairly well preserved on today's visit. IMPRESSION: 1. Patient appears to have chronic pain secondary to possible left rotator cuff strain or even tear. 2. Cervical spondylosis with facet loading pain clinically on the left side at C5-6, C6-7. RECOMMENDATIONS: I have recommended physical therapy for the shoulder pain, left shoulder plain films and MRI of the left shoulder without contrast. To proceed with diagnostic left sided C5-6, C6-7 joint injection under fluoroscopic guidance for her pain from her spondylosis. As part of providing excellent, safe, comprehensive care, the following was completed at our patient's visit: 1. A medication reconciliation and review to ensure accurate knowledge of current/active medications, including asking our patients to inform us about any othi-fuj-qgovnpo medications or herbal remedies/nutritional supplements/alternative remedies. 2. A review to specifically ensure our patients have had annual screening for: elevated body mass index (BMI, see intake chart for exact total), tobacco use, screening for depression, and screening for unhealthy alcohol use. When screening is concerning, patients are provided with education and the specific recommendation to discuss the concerning health issue and treatment options with their primary care provider. [facility] 04-12-2022 Note CONSULTATION CONSULTATION DATE: 04/12/2022 HISTORY OF PRESENT ILLNESS: This is a 61-year-old female who is well known to our Pain Clinic for chronic neck pain. She was last seen here in January, and at that time, was encouraged to continue with physical therapy of her neck, as she has had trapezius spasms. She is also under the care of [facility] for her MS and [facility] did not provide a note of recent findings; however, they told the patient just move up and schedule an appointment with us. The reason is unknown. Procedure-[facility], in June of 2021, she did have cervical radiofrequency ablations. She does have chronic neck pain, particularly on the left, with radiating shoulder pain. Medications are prescribed by her nursing facility physician which include oxycodone 5 mg b.i.d., Lyrica 150 mg b.i.d., tizanidine, trazodone and tramadol. She states any physical activity and lateral rotation of her neck aggravate her pain. Massage and heat are helpful. Patient's REVIEW OF SYSTEMS / PAST MEDICAL HISTORY / ALLERGIES and IMAGES have been reviewed and noted on the chart. PHYSICAL EXAM: VITAL SIGNS: Blood pressure 98/65, heart rate is 88. Temperature is 96.4. She is 5'6 , weighs 299 pounds per the senior living scale yesterday. FOCUSED EXAM - NECK: Range of motion is guarded and decreased in lateral rotation, left over right, as well as flexion/extension. No reproduction of spinal axial pain upon deep compression of the cervical facets. Pain does radiate down the left side to the shoulder, along C5-C6 distribution. MUSCULOSKELETAL: Upper extremities - right is 4/5, left is 3/5 with noted weakness and muscle atrophy. NEUROLOGICAL: Patient is cognitively intact. Blunted reflexes to the left including brachioradialis and triceps. Radiating pain along the C5-C6 distribution to the level of the wrist extensors. DIAGNOSIS: Cervical radiculitis, cervical degenerative disc disease, cervical spondylosis. PLAN: We have temporary pending order for an epidural in her cervical region, which is currently on hold. More clarity as to why [facility] would like her to be seen here, notes are pending. In the meantime, while we are obtaining those notes, we will be in communication with the patient as to whether we will progress or not. Patient is in agreement to this. [facility] 01-25-2022 Note CONSULTATION CONSULTATION DATE: 01/25/2022 HISTORY OF PRESENT ILLNESS: This is a 61-year-old female who is a resident at a skilled facility, presenting to the clinic for a three month follow up for chronic neck and left shoulder pain. She was last seen on 10/31/2021 which, at that time, she got a left shoulder injection at the glenohumeral joint by Dr. Gagnon. Patient is accompanied by an aide today, which states they had to take the patient's electric wheelchair controller away from the patient as they have noted a mental decline. The patient is alert and cooperative today and answering all questions. 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 Patient also sees [facility] and received recent Botox injections in November. The exact location of those injections are unknown, whether it was cervical or occipital injections. Medications include oxycodone, Lyrica, tramadol, trazodone, tizanidine and a vitamin regimen. Patient is currently starting occupational therapy to work with her left shoulder. Radiofrequency ablations were done in June of 2021 to her neck, which initially gave her a fair amount of relief, but does suffer from chronic spasms. Patient's REVIEW OF SYSTEMS / PAST MEDICAL HISTORY / ALLERGIES and IMAGES have been reviewed and they are noted on the chart. PHYSICAL EXAM: VITAL SIGNS: Blood pressure 127/73, heart rate is 86. Weight is 296.3 pounds today. That weight was obtained from senior living records, as she was recently weighed. GENERAL IMPRESSION: Pleasant, appropriate, no acute distress. Slow to answer. FOCUSED EXAM - NECK: Range of motion is limited in lateral rotation and flexion/extension. Upon palpation, bilateral cervical trapezius and splenius capitis muscles are spasmodic, left greater than right. Compression along the posterior elements of C6 and C7 produce a jump response. BILATERAL UPPER EXTREMITIES: Limited shoulder range of motion in lateral raises, adduction and abduction. Pain is palpated over the left glenohumeral joint which produces mild pain. Right anterior shoulder joint tender upon palpation. Crepitus is negative bilaterally. BACK: Exam is deferred. NEUROLOGICAL: Patient is slow to answer. She is alert and oriented x3 to questions. Blunted bilateral brachioradialis and triceps reflexes. MUSCULOSKELETAL: Poor muscle tone bilateral upper extremities. Motor is 3/5. DIAGNOSIS: Cervical degenerative disc disease, cervical spasms and left shoulder osteoarthritis. PLAN: Additional orders will be sent for nursing and the therapist to do at the senior living. This includes a menthol heat rub to her neck and shoulders twice a day with heat application as well. I have recommended therapist to do cervical trapezius neck massages twice daily along with a trial of electrode stimulation treatments 2-3 times a week. At this point, we will follow up with her in four months' time and this may be telehealth if there are no other additional changes with the patient. Patient is in agreement with this and continues to answer my questions appropriately. [facility] 10-31-2021 Note CONSULTATION CONSULTATION DATE: 10/31/2021 CHIEF COMPLAINT: Left shoulder pain. HISTORY OF PRESENT ILLNESS: This is a sad, 61-year-old female, who has left shoulder pain. The patient is wheelchair bound, bedridden, morbidly obese. The patient has had significant pathology in the past. The patient has had chronic pain. She reports her main complaint being left shoulder. The patient was seen recently and, at that time, was also seen a neurologist, who suspected occipital nerve blocks. The patient's pain focus today is her left shoulder. No other changes noted by the patient. The patient states lifting her left arm and/or functioning aggravate the pain. The pain is present constantly. PAST MEDICAL HISTORY: The patient's past medical history is without further change from the previous visit. The patient is a poor historian, is in a senior living. PHYSICAL EXAM: FOCUSED EVALUATION OF THE LEFT SHOULDER: The patient has fullness and tenderness along the left shoulder. Significant jump response is noted along the AC joint and also along he glenohumeral in flexion and abduction of the left shoulder. 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 The patient has cervicothoracic kyphosis. The patient does ambulate with a motorized wheelchair. The patient is accompanied by her caregiver from the senior living. IMPRESSION: Current additional working diagnosis on the patient is left shoulder pain, left shoulder osteoarthritis. PLAN: We will look to proceed with a glenohumeral joint injection. Given that the patient's quality of life is poor currently; however, and maximized to the level that can be accomplished, given that she is living in a nursing facility, we will look to proceed with the joint injection in the office today. The patient understands and would like to proceed. CC: (sounds like Dr. Kenia Beck but unable to verify) [facility] 10-31-2021 Note CONSULTATION PROCEDURE DATE: 10/31/2021 PREOPERATIVE DIAGNOSIS: Left shoulder pain, left shoulder osteoarthritis. POSTOPERATIVE DIAGNOSIS: Left shoulder pain, left shoulder osteoarthritis. PROCEDURE: Left glenohumeral joint injection. Subsequent to obtaining informed consent, the patient is in the sitting position. Alcohol prep was used to sterilize the site. A 25 gauge needle was advanced and it comes to rest in the left glenohumeral joint and then also along the AC joint. Negative aspiration. Marcaine 0.125% along with Kenalog, a total of 40 mg are injected to the two sites mentioned above. The patient tolerates the procedure well, without any overt complication. Will be followed up in the office as needed. [facility] 10-18-2021 Note CONSULTATION CONSULTATION DATE: 10/18/2021 This is a 60-year-old female with a history of MS who resides in a fpc facility. She is following up for a 3-month appointment for chronic neck pain and left shoulder pain. The patient had radiofrequency ablation to her cervical region in June of this year. It has overall given her satisfactory relief but she is complaining of ongoing radiating headaches from the left occipital region and up to her temporal and parietal lobe. She also has left shoulder pain that is exacerbated by lifting, movement, reaching and ADLs. All her medications are managed by her physician at the skilled facility which includes oxycodone 5 mg b.i.d. and 10 mg at h.s., Lyrica 150 mg b.i.d., Trazadone, Tramadol 50 mg q. day and Tizanidine. She is being [facility] by [facility] and upon her recent appointment they were concerned about a possible occipital neuralgia on the left side that may benefit from a possible nerve block. The patient currently receives occupational therapy at her skilled facility which she feels is minimally to moderately beneficial. The patient is in an electric wheelchair. REVIEW OF SYSTEMS, PAST MEDICAL HISTORY, ALLERGIES AND IMAGES: Have been reviewed and noted in the chart. PHYSICAL EXAM: VITAL SIGNS: Blood pressure 106/79, heart rate is 72, temperature is 96.9. Height is 5'6 , weighs 320 pounds according to senior living data. GENERAL APPEARANCE: Pleasant, appropriate, in no acute distress. FOCUSED EXAM: NECK: Range of motion is functional but limited to left lateral rotation. Flexion/extension is functional. No reproduction of spinoaxial pain upon compression of the posterior elements of the cervical facets. CHEST: HEART: No JVD. No orthostatic deviation. BACK: MUSCULOSKELETAL: Motor is 3 out of 5 bilaterally, left weaker than the right. Pain and tenderness to adduction and abduction of her left shoulder with point muscle tenderness that is reproduced. Left shoulder joint without crepitus. NEUROLOGICAL: Diffuse polyneuropathy to her left foot, that is intermittent. Blunted patellar and brachioradialis reflexes. DIAGNOSIS: Left occipital neuralgia, cervical radiculitis and cervical spondylosis. PLAN: We will authorize for left occipital nerve block to be done by Dr. Gagnon. Encouraged her to continue with her occupational therapy at her skilled facility as well as a topical menthol heat rub and a heat pad to her neck and shoulder daily. She will return to the clinic in approximately 1-2 weeks to receive her injection. The patient agrees with this plan of care. [facility] 07-27-2021 Note CONSULTATION CONSULTATION DATE: 07/27/2021 This is a pleasant 60-year-old female who is wheelchair bound and was at a nursing facility. She is coming in status post bilateral cervical RFA to C3, C4 and C5, C6. She had successful relief with her MBBs, however, at this point she is reporting about 25% relief. The procedure was completed on 06/27/2021. She is stating her range of motion has improved and she does not have numbness or tingling to her right hand. Her pain is a 4 today, rated as achy. The patient reports the nursing facility has not been using her heat rub on her neck and not applying heat. Activities such as lateral rotation, lifting and physical activity aggravates her pain. Current medications include Lyrica 150 mg b.i.d., oxycodone 5 mg b.i.d., Tramadol 50 mg daily, Zanaflex, Trazadone and Trileptal. All meds are handled by her PCP. REVIEW OF SYSTEMS, PAST MEDICAL HISTORY, ALLERGIES AND IMAGES: Have been reviewed and noted in the chart. PHYSICAL EXAM: VITAL SIGNS: Blood pressure 123/79, heart rate is 77, temperature is 97.5. Unable to establish a weight today due to her being in her motorized wheelchair GENERAL APPEARANCE: Pleasant, appropriate and in no acute distress. FOCUSED EXAM: NECK: Increased range of motion to lateral rotation and flexion/extension. No reproduction of spinoaxial pain to direct compression along the cervical facets. Symptomatology reproduced to direct compression along the cervical trapezius muscles. No trigger points identified but the muscles are taut. MUSCULOSKELETAL: Upper extremities motor is 3 out of 5 which is her baseline; right weaker than the left. NEUROLOGICAL: Negative polyneuropathy; brachioradialis is blunted bilaterally. DIAGNOSIS: Cervical disk disease, cervical spondylosis, cervical neuritis. PLAN: An order was written for the [facility] facility to apply menthol heat rub twice daily with heat pad application. I did discuss with the patient that it is so early in her recovery time that she should expect increased improvement as the weeks go on. I did recommend that physical therapy include cervical massage to her muscles. We will continue to follow her in three months' time unless otherwise indicated. The patient agrees with the plan of care and all questions were answered. [facility] Signed and Approved by: ABHINAV IGNACIO . 07/31/2021 15:07:[address] [facility] 01-24-2021 Evaluation note Encounter Date Diagnosis Assessment Notes Jan, Multiple sclerosis (ICD-10 - G35) I believe this patient's hyperreflexia is mostly due to her multiple sclerosis. As is her decreased ability to ambulate. Jan, Neck pain (ICD-10 - M54.2) The patient's primary complaint is neck pain. I have independently reviewed the MRI of her neck along with the report. The reading states marked central canal stenosis but I disagree with that reading overall. It is a very poor quality MRI but all in all there appears to be adequate canal possibly some slight cord compression. Given this patient's morbid obesity and comorbidities of multiple sclerosis I suspect her ability to ambulate will be very very minimal. They move around with a Bonilla lift. I see no benefit from surgical intervention on this patient. Her primary complaint is neck pain and I think pain management is the best option. Jan, Arthropathy of left shoulder (ICD-10 - M19.012) Jan, Morbid obesity (ICD-10 - E66.01) This patient's morbid obesity makes her ability to ambulate very very poor [employer] Other 06-15-2021 Miscellaneous Notes* Telephone Encounter - Alize Patton (Pss) - 08/23/2020 1:19 PM EDT Replied with phone number via my chart. * Telephone Encounter - Shahrzad Camden Pss - 08/22/2020 2:25 PM EDT Patient calling in regards to the [employer] company that provider advise patient call. States she ordered shoes and its been over a month but lost their number and has no way of getting in touch with them. Patient is requesting a call at [phone] Please advise. [facility] NoteHNO ID: [id number] Author: Quinten Lewis DPM Service: ? Author Type: Physician Type: Progress Notes Filed: 07/28/2020 1:07 PM Note Text: Subjective: Patient is seen today stating that she is not sure why she is here today. She said she was molded for the AFO but has yet to get it. Physical Exam: The patient is seen in a large motorized wheelchair. ? The patient is alert and oriented x 3 in no apparent acute distress. Vascular: Pedal pulses are barely palpable DP and PT right. CFT is less than 3 seconds digits 1-5 right. Skin temperature is warm to cool from anterior knees to toes right. Some diminished varicosities right. Diminished pedal hair growth . ? Neuro: Light touch is intact to all quadrants of foot and ankle with no apparent sensory deficits right. ? Derm: The patient has some erythema of the right first toe with a small superficial ulcerative area approximately 3 x 3 mm without purulence drainage Ortho: Muscle strength is +5/5 for plantar flexors and inverters essentially was 0 out of 5 for dorsiflexors and everters. She has a rocker-bottom type foot with a varus deformity of the forefoot and a severe abduction deformity of the great toe that is fixed Assessment: Dropfoot of right lower extremity Iatrogenic great malunion right great toe Plan: Podiatric Office Visit- the etiology of the patient's complaint along with treatment options were explained to the patient in detail. Discussed results of clinical examination with the patient in detail along with treatment options Advised I think her biggest problem is her dropfoot that has not been addressed yet. Advised in my opinion I think she needs to get her AFO and see how she does. I am not sure the patient will ever be able to be ambulatory considering her stature and orthopedic issues. Explained to patient again that I think she is not a great surgical candidate to straighten her big toe at this time because of multiple issues and her bone stock is somewhat poor. The patient may follow-up as needed pending progress. Quinten Lewis, [facility] noteNo InformationNolafayette regional health center [place] Other evaluation note* Diagnosis Chronic kidney disease- Primary Chronic kidney disease, unspecified Anemia Unspecified anemia Multiple sclerosis ([facility]) Multiple sclerosis CKD (chronic kidney disease) Chronic kidney disease, unspecified Morbid obesity ([facility])- Primary Morbid obesity [place]end stage renal disease) [place] End stage renal disease Arteriovenous fistula stenosis, initial encounter [place] documented in this encounter [facility] [employer] SystemHistory general Narrative - Reported* Type Description Date Medical History multiple sclerosis Medical History bilateral hearing loss Medical History hypertension Medical History diabetes mallitus Medical History thrombacytopenia Medical History kidney disease Surgical History tubal ligation Surgical History knee replacement 2006 Surgical History Foot Surgery-LEFT 2006,2008,200 9 Hospitalization History [facility] [place] Other InstructionsNot on filedocumented in this encounter [facility]itronInstructionsNot on filedocumented in this encounter [facility]imaFrontify SystemReason for visit Narrativereferral [facility] [place] Other reason for visit NarrativePain Medicine Referral UpdateNolafayette regional health center [place] Other Summary Purpose Family History No Family History Records FoundNo Family History Records FoundNo Family History Records FoundNo Family History Records FoundNo Family History Records FoundNo Family History Records FoundNo Family History Records FoundNo Family History Records FoundNo Family History Records Found Advance Directives No Advanced Directives Records FoundDocuments on File Type Date Recorded Patient Billing Specialist Expl anation Advance Directive(s) 12/04/2013 5:55 PM Latest Code Status on File Code Status Date Activated Date Inactivated Comments Full Code 09/13/2022 9:32 AM 09/20/2022 3:29 AM Latest Code Status on File Code Status Date Activated Date Inactivated Comments Full Code 09/13/2022 9:32 AM 09/20/2022 3:29 AM Hospital Course Note [facility] SURGERY Clinical Discharge Summary PERSON INFORMATION Name DONNA MATHEWS Age 57 Years 61 Sex FEMALE Language Georgian PCP Harjit Lopez MD Marital Status Single Med Service Ambulatory Surgery Acct# Arrival 06/03/18 12:10:14 Visit Reason SURGERY - CYSTOSCOPY Acuity LOS 006 05:41 Address: [address] [place] [id number] Comment: PROVIDER INFORMATION VITALS INFORMATION Vital Sign Triage Latest Temp Oral Temp Temporal Temp Intravascular Temp Axillary Temp Rectal 02 Sat Respiratory Rate Peripheral Pulse Rate Apical Heart Rate Blood Pressure / / Comment: MEDICAL INFORMATION Allergy Info: No Known Medication Allergies Prescriptions Given: Home Meds Display Al hydroxide/Mg hydroxide/simethicone (Maalox Advanced Maximum Strength oral suspension) 20 mL, PO, QID, Instructions: between meals and at bedtime, # 240 mL, 0 Refill(s) alendronate (alendronate 70 mg oral tablet) 1 tab(s) ( 70 mg ), PO, qWeek, # 12 (more content not included)... Reason for Referral Reason Evaluate and Treat w ith injection Diagnosis 1 Neck pain (M54.2) Referral Organization [facility] Referring Provider First Name Kendell Referring Provider Last Name Radha Referring Provider Specialty Neurologica l Surgery Referred Organization [facility] Referred Provider Jr. Galindo William Referred Address [address],[place], [place],[address] Referred Provider Specialty Pain Medicin e Referral Priority Routine Specialty Diagnoses / Procedures Referred By Laurent talavera Referred To Contact Radiology Diagnoses Morbid [place] (end stage renal disease) [place] Arteriovenous fistula stenosis, initial encounter [place] Procedures IR angiography extremity left Krystin Salcedo MD [address] [place] [address], [address] [place] [address] Referral ID Status Reason Start Date Expiration Date V isits Requested Visits Authorized [id number] Pending Review 05/02/2023 05/01/2024 1 1 Additional Source Comments INFORMATION SOURCE (unrecogn ized section and content) DATE CREATED AUTHOR 06/26/2018 [facility] DATE CREATED AUTHOR AUTHOR'S ORGANIZ ATION 07/15/2018 [facility] DATE CREATED AUTHOR AUTHOR'S ORGANIZ ATION 06/05/2021 [facility] DATE CREATED AUTHOR AUTHOR'S ORGANIZ ATION 07/07/2021 [facility] DATE CREATED AUTHOR AUTHOR'S ORGANIZ ATION 07/08/2022 [facility] DATE CREATED AUTHOR AUTHOR'S ORGANIZ ATION 04/02/2023 [facility] DATE CREATED AUTHOR AUTHOR'S ORGANIZ ATION 05/10/2023 [facility] DATE CREATED AUTHOR AUTHOR'S ORGANIZ ATION 05/12/2023 [facility] DATE CREATED AUTHOR AUTHOR'S ORGANIZ ATION 05/20/2023 [facility] Source Comments (unrecognize d section and content) In the event this informatio n is protected by the Federal Confidentiality of Alcohol and Drug Abuse Patient Records regulations: The Federal rules restrict any use of the information to criminally investigate or prosecute any alcohol or drug abuse patient.[facility] Reason for Visit (unrecogniz ed section and content) Reason Comments Question Care Teams (unrecognized sec tion and content) Coding Analyst Relationship Specialty Start Date End Date Doug Ornelas MD [address] [place] [address] PCP - General 01/18/04 Christopher Lema Referring Podiatry 03/31/13 Coding Analyst Relationship Specialty Start Date End Date Todd George MD [address] [place] [address] PCP - General Internal Medicine 09/13/22 Coding Analyst Relationship Specialty Start Date End Date Todd George MD [address] [place] [address] PCP - General Internal Medicine 09/13/22 FOR RECORDS PERTAINING TO PATIENTS WHO ARE OR HAVE BEEN ENROLLED IN A CHEMICAL DEPENDENCY/SUBSTANCEABUSE PROGRAM, SOME INFORMATION MAY BE OMITTED. This clinical summary was aggregated from multiple sources. Caution should be exercised in using it in the provision of clinical care. This summary normalizes information from multiple sources, and as a consequence, information in this document may materially change the coding, format and clinical context of patient data. In addition, data may be omitted in some cases. CLINICAL DECISIONS SHOULD BE BASED ON THE PRIMARY CLINICAL RECORDS. [facility] [employer] provides no warranty or guarantee of the accuracy or completeness of information in this document.
== END 2023-05-28 13:09 | disposition home or self-care (01) ==
LOC: MAMMO 13:09
PROVIDERS: PCP Internal Medicine; Visit Provider Internal Medicine
DX: Z12.31 Encounter for screening mammogram for malignant neoplasm of breast (principal); Z80.3 Family history of malignant neoplasm of breast; Z80.1 Family history of malignant neoplasm of trachea, bronchus and lung; Z80.8 Family history of malignant neoplasm of other organs or systems
CPT/HCPCS: 77067

== ENCOUNTER 2023-05-29 07:44 | Outpatient (OUT) | payer MEDICARE, MEDICAID, SELFPAY ==
--- OUTSIDE RECORDS SUMMARY | 2023-05-29 07:47 | XMS_ITS | CCD ---
Author Organization [facility] Care Team Providers Care Tape Cutting Machine Operator Name Role Phone David Mejía Admitting Unavailable David Mejía Attending Unavailable Harjit Lopez Primary Care Unavailable DAVID MEJÍA Admitting Unavailable DAVID MEJÍA Attending Unavailable HARJIT LOPEZ Primary Care Unavailable Doug Ornelas MD Primary Care Provider Christopher Lema Unavailable Kendell Garcia Unavailable JOSE [...] LAKSHMIPATHY ., NARENDRANATH Admitting Flora vailable DR TODD GEORGE Primary Care Unavailable JOSE MARTIN ., [...] Propensity to adverse reactions to drug (disorder) [facility] Repository Medications Current Medications Medication [...] mouth in the morning. 0 Active calcitriol 0.48724 mg oral capsule (2 sources) Vitamin D3 [...] Active docusate sodium 50 mg / sennosides, residential 8.6 mg oral tablet (2 sources) Start: [...] venous catheter. 0 08/22/2022 Active lactobacillus acidophilus [id number] unt / pectin 100 mg oral tablet (2 sources) take 1 tablet by mouth once daily at breakfast acidophilus-pect in, citrus 25 million cell -100 mg tablet Take 1 tablet by mouth daily with breakfast. 0 Active lactulose 12030 mg powder for oral solution (3 sources) [...] NVELA) 800 mg tablet sodium zirconium cyclosilicate 27487 mg powder for oral suspension (1 source) [...] above: Take 1 capsule by mo [facility] once daily. Fish Oil-Houston-3 Fatty Acids (FISH OIL) 340-1,000 mg cap (1 source) Fish Oil-Houston-3 Fatty Acids (FISH OIL) 340-1,000 mg cap [...] by mouth twice daily. polyethylene glycol 3350 54870 mg powder for oral solution (4 sources) [...] Potassium [Moles/Vol] 5.4 mmol/L High 3.5-5.0 [facility] Comment on above: Performed By: #### 2 823-3 #### [facility] ([id number]) [address], [address] [place] [address] MRI SHOULDER LT WO CONon MRI SHOULDER [...] HYALINE CARTILAGE: Complete loss of cartilage with [id number] articulation between the humeral head and glenoid, [...] SHOOK Date: 2022-07-05 07:38 Normal [facility] MG MAMM SCREEN SAMAN W CADon 0 05-10-2022 MG MAMM SCREEN SAMAN W CAD Patient: DONNA MATHEWS Exam Date: 05/10/2022 : 1960 Gender:F Ordering : 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 LOCATION: [facility] BREAST COMPOSITION: Heterogeneously dense,which may obscure small [...] PALPABLE LUMP SHOULD BE BIOPSIED. Dictated by: lE Salcedo MD on 05/11/2022 at 12:29 Approved by: El Salcedo MD on 05/11/2022 at 12:31 Normal [facility] XR DEXA BONE DENSITYon 05-10 XR DEXA [...] EL SALCEDO Date: 2022-05-10 16:17 Normal [facility] MRI BRAIN WO W CONon 023 MRI [...] BANDAR SHOOK Date: 2022-04-13 07:38 Normal [facility] BUNon 04-12-2022 Urea nitrogen [Mass/Vol] 37.0 mg/dL Critically high 7.0-18.0 [facility] Comment on above: Performed By: #### C KRIS, BUN #### [facility] [address] [place] [address] Dr. Ellen Layne CREATININEon 04-12-2022 Creatinine [Mass/Vol] 1.79 mg/dL Critically high 0.55-1.02 [facility] Comment on above: Performed By: #### C KRIS, BUN #### [facility] [address], [place] [address] Dr. Ellen Layne EGFR-AF SAMMARINESE 35 mL/min/1.73m2 Critically low >=60 [facility] Comment on above: Performed By: #### C KRIS, BUN #### [facility] [address], [place] [address] Dr. Ellen Layne EGFR-NON AF SAMMARINESE 29 mL/min/1.73m2 Critically low >=60 [facility] Comment on above: Performed By: #### C KRIS, BUN #### [facility] [address], [place] [address] Dr. Ellen Layne Gastroenterology Office/Clin ic Noteon 05-18-2021 Gastroenterology Office/Clinic Note Chief Complaint ref by [facility]- abnormal labs HPI Staff This is a 60 year old female who presents today for a referral by [facility] for complaints of abnormal renal labs. History of Present Illness The patient is a assisted resident and was referred to me, but [...] I advised the patient to call the assisted and clarify why she was referred. 2. Screen for colon cancer (Z12.11: Encounter for screening for malignant neoplasm of colon) Documentation services were performed after patient or guardian consented to allow [employer] to record this visit. ANABELLE acoustic intelligence specialist and provider reviewed before signing. ANABELLE: [...] mg= 1 tab(s), Oral, Daily Vitamin D, 33300 International_Unit, Oral, qWeek Zanaflex 4 mg Tab, 4 mg= 1 tab(s), Oral, Daily Zinbryta, 150 mg, SubCutaneous, qMonth Allergies No Known Allergies Social History Alcohol - Denies Alcohol Use, 10/19/2010 Past, 10/19/2010 Substance Abuse - Denies Substance Abuse, (more content not included)... Normal [facility] Comment on above: Result Comment: Elec tronically [...] no longer receiving treatment for. DVT Osteopenia [facility] Wilfrido 08-22-2020 CNPN Telephone (ORLOCentrobit Agora) DONNA MATHEWS ([id number]) 1960 F Date Time Provider Department 08/22/20 QUINTEN LEWIS During your visit today, we recorded the following information about you: Shahrzad Hannah Pss 08/22/2020 2:27 PM Signed Patient calling in regards to the [employer] company that provider advise patient call. States she ordered shoes and its been over a month but lost their number and has no way of getting in touch with them. Patient is requesting a call at [phone] Please advise. Alize Patton 08/23/2020 1:19 PM Signed Replied with phone number via my chart. Allergies As of Date: 08/22/2020 (No Known Allergies) Date Reviewed: 07/27/2020 Reviewed by: Alize ([facility] Abdi - Fully Assessed Reason for Visit: [...] LUTEIN ORAL) Take by mouth. - Fish Oil-Houston-3 Fatty Acids (FISH OIL) 340-1,000 mg cap [...] Status:Closed by SHAHRZAD DONIS on 07/04/21 Normal [facility] CNOVon 07-27-2020 CNOV Office Visit (LOORRM ) DONNA MATHEWS ([id number]) 1960 F Date Time Provider Department 07/27/20 [...] Date Reviewed: 07/27/2020 Reviewed by: Alize [facility] - Fully Assessed Reason for Visit: [...] Encounter Status:Closed by QUINTEN LEWIS on 07/28/20 [facility] Urineon 06-06-2018 C Urine urine taken from [...] > Verified Vanc S 1 Verified Normal [facility] Comment on above: Performed By: #### [id number] #### [facility] (DEFAULT) [address] [place] [address] Coding Summaryon 06-05-2018 Coding Summary CODING DATE: 06/05/2018 [facility] STATUS: Home PAYOR: Medicare MC APC DESCRIPTION 5372 Level 2 Urology and Related Services ADMIT DX: REASON FOR VISIT DX: R32 Unspecified urinary incontinence FINAL DX: PRINCIPAL: R32 Unspecified urinary incontinence SECONDARY: R93.41 Abnormal radiologic findings on diagnostic imaging of renal pelvis, ureter, or bladder G35 Multiple sclerosis N32.89 Other specified disorders of bladder PYMT PROC APC STAT DESCRIPTION DOCTOR NAME DATE 55919 2232 T Cystourethroscopy David Mejía MD 06/03/2018 (separate procedure) NOTE: The code number assigned matches the documented diagnosis and / or procedure in the patient's chart. However, the narrative phrase printed from the coding software may appear abbreviated, or result in slightly different terminology. Coded By: Jessica Valiente Date Saved: 06/05/2018 07:20 am [facility] History and Physicalon 06-05 History and Physical [id number]#1.0 [facility] Consent Formson 06-04-2018 Consent Forms [id number]#1.00 [facility] Outside Recordson 06-04-2018 Outside Records [id number]#1.00 [facility] Provider Orderson 06-04-2018 Protein mass conc [id number] [facility] Inpatient Patient Summaryon 06-03-2018 Inpatient Patient Summary [address] [address] Patient Discharge Instructions Name: DONNA MATHEWS : 62 Patient [address]: [address] [place] [address] Primary Care Provider: Name: Harjit Lopez MD After you are discharged if you find you have any questions, please, call [phone] ext [phone] to speak to a nurse. Discharge Diagnosis: [...] business decisions or sign any legal documents [facility] would like to thank you for allowing us to assist you with your healthcare needs. The following includes patient education materials and information regarding your injury/illness. SILKE MATHEWSANCE Nelly has been given the following list of follow-up instructions, prescriptions, and patient education materials: Follow-up Instructions With: Address: When: David Mejía [address] [place] [address], [address] [place] [address] Business (1) With: Address: When: Harjit Lopez [address] [place] [address] Business (1) Medications During the course of [...] for Disease Control and Prevention November 2013 [facility] MAGR Intraoperative Recordon 06-03-2018 MAGR Intraoperative Record MAGR Intra-Op Record Summary Primary Physician: David Mejía MD Finalized Date/Time: 06/03/18 16:22:13 Pt. Name: DONNA MATHEWS/Sex: 1960 FEMALE Med Rec #: [id number] Physician: David Mejía MD Financial #: [id number] Pt. Type: D Room/Bed: / Admit/Disch: 06/03/18 [...] Linda M Role Performed Surgeon - Primary Digital Media Specialist Scrub Personnel Time In 06/03/18 15:45:00 06/03/18 [...] Unfinalizing 06/03/18 16:21 DIANA Modify Pick List [facility] MAGR Preoperative Recordon 0 06-03-2018 MAGR Preoperative Record MAGR Pre-Op Record Summary Primary Physician: David Mejía MD Finalized Date/Time: 06/03/18 15:51:38 Pt. Name: DONNA MATHEWS/Sex: 1960 FEMALE Med Rec #: [id number] Physician: David Mejía MD Financial #: [id number] Pt. Type: D Room/Bed: / Admit/Disch: 06/03/18 [...] Preop Departure 06/03/18 15:40:00 Last Modified By: Irlanad Knox RN 06/03/18 15:51:36 Post-Care Text: Patient [...] Signed By: Irlanda Knox RN 06/03/18 15:51 [facility] Patient Handouton 06-03-2018 Patient Handout [facility] Progress Note - Nurseon 05-10 Protein mass conc Talked with Yesenia @ [facility], instructed to have pt here @ 1030 on 06-03-18 and to fax Med. list-verbalized understanding. [Electronically Signed on: 06/02/2018 10:58 EDT] Cherise Espinoza RN [Verified on: 06/02/2018 10:58 EDT] Cherise Espinoza RN [facility] Vital Signs Date Time Vital Sign Value Performing Clinician Facility 05-02-2023 12:12-0500 Body height 167.6 cm Krystin Salcedo MD Work Phone: [facility] 05-02-2023 12:12-0500 Body mass index (BMI) [Ratio] 47.64 kg/m2 Krystin Salcedo MD Work Phone: [facility] 05-02-2023 12:12-0500 Body weight 133.81 kg Krystin Salcedo MD Work Phone: [facility] 05-02-2023 12:12-0500 Diastolic blood pressure 70 mm[Hg] Krystin Salcedo MD Work Phone: [facility] 05-02-2023 12:12-0500 Systolic blood pressure 138 mm[Hg] Krystin Salcedo MD Work Phone: [facility] 01-24-2021 09:20-0500 Body height 170.18 cm Kendell Garcia Other [employer] Other 01-24-2021 09:20-0500 Body mass index (BMI) [Ratio] 49.17 kg/m2 Kendell Garcia Other [employer] Other 01-24-2021 09:20-0500 Body weight 142.43 kg Kendell Garcia Other [employer] Other 01-24-2021 09:20-0500 Diastolic blood pressure 86 mm[Hg] Kendell Garcia Other [employer] Other 01-24-2021 09:20-0500 Systolic blood pressure 134 mm[Hg] Kendlel Garcia Other [employer] Other Encounters Encounter Date Encounter Type Care Provider Facility Start: 05-02-2023 End: 05-02-2023 ambulatory KRYSTIN SALCEDO [facility] Start: 05-02-2023 End: 05-02-2023 Postop follow up visit related to original px Krystin Salcedo MD [facility] Comment on above: Morbid obesity ([facility]) (Primary Dx); ESRD (end stage renal disease) ([facility] Arteriovenous fistula stenosis, initial encounter ([facility]) Start: 04-17-2023 End: 04-18-2023 ambulatory [facility] Start: 04-12-2023 End: 05-10-2023 ambulatory [facility] Start: 04-01-2023 End: 04-01-2023 ambulatory [facility] Start: 03-05-2023 Telephone encounter Elba Ramirez [facility] Start: 02-28-2023 End: 03-11-2023 ambulatory [facility] Start: 02-25-2023 End: 02-25-2023 Evaluation and management of inpatient ANURAG Frieda MARCUMCHRISTIANACAREAlicia [facility] Start: 02-25-2023 End: 02-25-2023 Evaluation and management of inpatient KRYSTIN Vega SETONY [facility] Start: 02-19-2023 ambulatory Rosina Hodges acility:[facility] Start: 07-04-2022 End: 07-05-2022 ambulatory NARENDRANATH LAKSHMIPATHY [...] 02-21-2021 End: 02-21-2021 ambulatory Kendell Garcia Other [facility] Dress Code Other Start: 02-21-2021 Telephone encounter Kendell Garcia [facility] [employer] [employer] Start: 01-24-2021 End: 01-24-2021 ambulatory Kendell Garcia Other [facility] Dress Code Other Start: 01-24-2021 Office outpatient ne w 45 minutes Kendell Garcia [facility] Neurosurgery Start: 08-22-2020 Telephone encounter José Lewis DPM Work Phone: Orthopaedics Comment on above: Question Start: 07-09-2018 End: 07-09-2018 Patient encounter procedure DAVID MEJÍA [facility] Start: 06-03-2018 End: 06-26-2018 Patient encounter procedure David Mejía Facility:[facility] Procedures Date Procedure Procedure Detail Performing Clinician Start: 09-13-2022 Adult depression scr eening assessment Elba Hernandez Start: 07-09-2018 DISCHARGE PATIENT MARTIN MEJÍA Plan of Treatment Date Care Activity Detail Author Start: 12-08-2028 Subsequent hospital visit by physician 12/08/2028 7:37 AM EDT Hospital Encounter [facility] [address] [place] [address] Harjit Lopez MD [facility] [place] [address] Chronic kidney disease (Primary Dx); Anemia; Multiple sclerosis (CMS-HCC); CKD (chronic kidney disease) Discharge Disposition: Home [facility] Comment on above: Chronic kidney disea se (Primary Dx); Anemia; Multiple sclerosis (CMS-HCC); CKD (chronic kidney disease) Start: 01-24-2025 LIPID SCREEN LIPID SCREEN [facility] Start: 05-02-2024 Adult BMI Screening Adult BMI Screen ing [facility] Start: 05-02-2024 Tobacco Screening Tobacco Screening [facility] Start: 02-26-2024 Adult BMI Screening Adult BMI Screen ing [facility] Start: 02-26-2024 Tobacco Screening Tobacco Screening [facility] Start: 09-14-2023 Depression Screening Depression Scre ening [facility] Start: 05-09-2023 End: 05-09-2023 Patient encounter procedure 05/09/2023 1:30 PM EST Office Visit [facility] [address] [place] [address] Ivette Sanchez, [facility] [address] [place] [address] [facility] Start: 05-02-2023 End: 05-02-2024 RFA Lower extremity vessels - left Views W contrast IR angiography extremity left Imaging Routine Morbid obesity ([facility]) ESRD (end stage renal disease) ([facility]) Arteriovenous fistula stenosis, initial encounter ([facility]) Expected: 05/02/2023, Expires: 05/02/2024 [facility] Work Phone: Comment on above: Expected: 05/02/2023 , Expires: 05/02/2024 Start: 03-25-2023 End: 03-25-2023 Patient encounter procedure 03/25/2023 2:10 PM EST Office Visit [facility] [address] [place] [phone] Alvaro Howard MD [facility] [facility] [place] [address] [facility] Start: 11-09-2022 COVID-19 Vaccine ( season) COVID-19 Vaccine ( season) [facility] Start: 11-09-2022 Influenza vaccination Influenza Vacc ine [facility] Start: 11-09-2021 Influenza vaccination INFLUENZ A (Season Ended) [facility] Start: 08-28-2020 COVID-19 VACCINE (3 - Booster for Pfizer series) COVID-19 VACCINE (3 - Booster for Pfizer series) [facility] Start: 05-25-2017 DIABETES SCREEN DIABETES SCREEN [facility] Start: 10-26-2011 Administration of varicella zoster vaccine Zoster (Shingles) Vaccine (1 of 2) [facility] Start: 10-26-2011 SHINGRIX VACCINE (1 of 2) SHINGRIX VACCINE (1 of 2) [facility] Start: 2006 COLOGUARD (FIT-DNA) COLOGUARD (FIT-D NA) [facility] Start: 2006 Colonoscopy COLONOSCOPY [facility] Start: 2006 COLORECTAL CANCER SCREENING COLORECTAL CANCER SCREENING [facility] Start: [address] COLONOGRAPHY [facility] Start: 2006 FECAL OCCULT BLOOD FECAL OCCULT BLOO D [facility] Start: [address] [facility] Start: 2001 Mammography MAMMOGRAM [facility] Start: 10-26-1991 HPV TESTING HPV TESTING [facility] Start: 1982 PAP TESTING PAP TESTING [facility] Start: 1982 Screening for malign ant neoplasm of cervix Pap Smear [facility] Start: 1980 DTaP,Tdap and Td Vaccines (1 - Tdap) DTaP,Tdap and Td Vaccines (1 - Tdap) [facility] Start: 1980 Urine microalbumin profile DTAP,TDAP,TD (1 - Tdap) [facility] Start: 10-26-1979 Adult BMI Follow Up Plan Adult BMI Follow Up Plan [facility] Start: 10-26-1979 HEPATITIS C SCREENING HEPATITIS C SC REENING [facility] Start: 10-26-1979 HIV SCREENING HIV SCREENING [facility] Start: 1973 Adult depression screening assessment DEPRESSION SCREENING [facility] Immunizations Immunization Date Immunization Notes Care Provider Sandeep parra 11-03-2018 influenza, injectabl e, quadrivalent, preservative free [facility] 11-03-2018 influenza virus vaccine, unspecified formulation [facility] 10-14-2018 influenza, injectabl e, quadrivalent, preservative free [facility] 08-11-2018 influenza, injectabl e, quadrivalent, preservative free [facility] 12-22-2017 pneumococcal polysaccharide vaccine, 23 valent [facility] 11-09-2016 influenza, injectabl e, quadrivalent, preservative free [facility] 12-09-2012 pneumococcal polysaccharide vaccine, 23 valent Quinten Lewis DPM Work Phone: [facility] Payers Date Payer Category Payer Self-pay 2023 Private Health Insurance [facility] PLUS [id number] 2023-Present [phone] [address] [address] [place] [address] [id number] 2022 Medicare [employer] MEDICARE UHC MEDICARE ADVANTAGE PPO [id number] 2022-Present [phone] [address] [address] [place] [address] [id number] [facility] MEDICAID [id number] 2020-Present [phone] [address] [place] [address] Medicaid [id number] 2017 Medicaid MEDICAID [facility] M EDICAID [id number] 2017-Present [phone] [address] [place] [address] [id number] 2002 Medicare MEDICARE MEDICAR E A AND B [id number] 2002-Present [phone] [address] [address] [place] [address] Medicare [id number] 1960 Unknown [id number] 2.16.840.1.590659.3.579. 2.718 1960 Unknown [id number] 2.16.840.1.437287.3.579. 2.177 1960 Unknown [id number] 2.16.840.1.940632.3.579. 2.593 1960 Unknown [id number] 2.16.840.1.423927.3.579. 2.593 1960 Unknown [id number] 2.16.840.1.329002.3.579. 2.593 1960 Unknown [id number] 2.16.840.1.962631.3.579. 2.593 1960 Unknown [id number] 2.16.840.1.316710.3.579. 2.593 1960 Unknown [id number] 2.16.840.1.963269.3.579. 2.593 1960 Unknown [id number] 2.16.840.1.971870.3.579. 2.593 1960 Unknown [id number] 2.16.840.1.779633.3.579. 2.593 1960 Unknown [id number] 2.16.840.1.610665.3.579. 2.593 1960 Unknown [id number] 2.16.840.1.273839.3.579. 2.593 1960 Unknown [id number] 2.16.840.1.360260.3.579. 2.593 1960 Unknown [id number] 2.16.840.1.888079.3.579. 2.1286 1960 Unknown [id number] 2.16.840.1.966364.3.579. 2.1286 1960 Unknown [id number] 2.16.840.1.188693.3.579. 2.1286 1960 Unknown [id number] 2.16.840.1.901304.3.579. 2.1286 1960 Unknown [id number] 2.16.840.1.322487.3.579. 2.1286 1960 Unknown [id number] 2.16.840.1.244375.3.579. 2.1286 1960 Unknown [id number] 2.16.840.1.800207.3.579. 2.1286 1960 Unknown [id number] 2.16.840.1.728590.3.579. 2.1286 1958 Medicaid [id number] 1958 Medicare [id number] 1958 Medicare [id number] Unknown [id number] 2.16.840.1.218193.3.579. 2.531 Social History Date Type Detail Facility Start: 03-27-2013 End: 09-13-2022 Tobacco smoking status SDIS Never smoked tobacco [facility] Start: 03-27-2013 End: 09-13-2022 Tobacco use and exposure Smokeless tobacco non-user [facility] Start: 05-05-2014 Alcohol intake Current drinke r of alcohol (finding) [facility] Start: 03-27-2013 History SDOH Alcohol Comment Occasional [facility] Start: 1960 Sex Assigned At Not on file [facility] Start: 06-27-2020 End: 07-27-2020 Exposure to SARS-CoV-2 (event) Not sure [facility] Start: 03-22-2020 End: 09-13-2022 Sex Assigned At [facility] [employer] Other Start: 02-26-2023 End: 05-02-2023 Alcohol intake Ex-drinker (finding) [facility] Start: 03-22-2020 End: 09-13-2022 History of Social function [facility] How often to you hav e a drink containing alcohol? Monthly or less [facility] How many standard drinks containing alcohol do you have on a typical day? 1 or 2 [facility] How often do you hav e 6 or more drinks on 1 occasion? Never [facility] Adolescent depressio n screening assessment 0 [facility] Medical Equipment Procedure Code Equipment Code Equipment Origin al Text Equipment Identifier Dates Graft Bn Canc 30 ml Allgrft - [id number] Start: 05-20-2014 Comment on above: Description: GRAFT B ONE CANC. Tjt-Xt-F-Kind Implant - [id number] Start: 10-01-2013 Comment on above: Description: Glenis underwood Spiral Blade Cqu-Al-W-Kind Implant - [id number] Start: 05-20-2014 Comment on above: Description: 4.5 mm VA-LCP plate, [id number] PLATE Sie-Ft-S-Kind Implant - [id number] Start: 05-20-2014 Comment on above: Description: 5.0 x 3 4mm locking screw, [id number] SCREW Thr-Zo-W-Kind Implant - [id number] Start: 05-20-2014 Comment on above: Description: 5.0 mm x 60mm locking screw, C1713 Fia-Ya-B-Kind Implant - [id number] Start: 05-20-2014 Comment on above: Description: 5.0 mm x 65mm locking screw, C1713 SCREW Qfz-Pi-B-Kind Implant - [id number] Start: 05-20-2014 Comment on above: Description: 5.0 mm x 70 mm locking screw, C1713 SCREW Nail 12mm 380mm Fem Nlex Im - [id number] Start: 10-01-2013 Comment on above: Description: C1713 N AIL 12MM 380MM FEM NLEX IM Cap End 0mm Fem Ext Strdr Rcs - [id number] Start: 10-01-2013 Screw Bn 5mm 44m m Nlex Ti Ft - [id number] Start: 10-01-2013 Screw Bn 5mm 40m m Nlex Ti Ft - [id number] Start: 10-01-2013 Screw Bn 5mm 66m m Nlex Ti Fem - [id number] Start: 10-01-2013 Comment on above: Description: C1713 S CREW BN 5MM 66MM NLEX TI FEM Screw Bn 4.5mm 40mm Lcp Ss - [id number] Start: 05-20-2014 Screw Bn 4.5mm 42mm Lcp Ss - [id number] Start: 05-20-2014 Screw Bn 4.5mm 46mm Lcp Ss - [id number] Start: 05-20-2014 Screw Bn 4.5mm 32mm Lcp Ss - [id number] Start: 05-20-2014 Screw Bn 4.5mm 34mm Lcp Ss - [id number] Start: 05-20-2014 Screw Bn 4.5mm 36mm Lcp Ss - [id number] Start: 05-20-2014 Screw Bn 4.5mm 38mm Lc Dcp Dhs - [id number] Start: 05-20-2014 Set Cth 24cm 14f r 18ga Str Triniflex Splt3 Bsc Intro Ndl Gw Rpl [id number] - [id number], [id number] FDA Start: 09-07-2022 Clinical Notes [...] of Study: 04/17/23 Ordering Provider: Ziyad Ulrich APRN-[facility] Clinical Indications: ESRD (end stage renal disease) [...] all orders for this visit: Morbid obesity ([facility]) ESRD (end stage renal disease) ([facility]) Arteriovenous fistula stenosis, initial encounter ([facility]) Plan Plan Will arrange for fistula [...] week. Patient will need to travel from [facility]. Their phone number is [phone]. documented in this encounter [facility] 03-05-2023 Miscellaneous Notes DARY CALLED TO CANCEL SHE DOES NOT WANT TO RESCHEDULE AT THIS TIME documented in this encounter [facility] 03-05-2023 Telephone encounter Note DARY CALLED TO CANCEL SHE DOES NOT WANT TO RESCHEDULE AT THIS TIME [facility] 06-08-2022 Note PROCEDURE: XR SHOULD ER LT 2V or > COMPARISON: None. HISTORY: Tear of left rotator cuff FINDINGS: BONES:No acute fracture or dislocation. Moderate acromioclavicular joint osteoarthropathy. Severe glenohumeral joint osteoarthritis SOFT TISSUES:Negative. No visible soft tissue swelling. EFFUSION:None visible. OTHER: Negative. IMPRESSION: Moderate to severe osteoarthritis Electronically authenticated by: EL SALCEDO Date: 2022-06-08 07:41 [facility] 06-07-2022 Note CONSULTATION CONSULTATION DATE: 06/07/2022 TO: [...] our patients to inform us about any nxlh-egg-fgnjqty medications or herbal remedies/nutritional supplements/alternative remedies. 2. [...] options with their primary care provider. [facility] 04-12-2022 Note CONSULTATION CONSULTATION DATE: 04/12/2022 HISTORY [...] 5'6 , weighs 299 pounds per the assisted scale yesterday. FOCUSED EXAM - NECK: Range [...] Patient is in agreement to this. 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 That weight was obtained from assisted records, as she was recently weighed. GENERAL [...] and the therapist to do at the assisted. This includes a menthol heat rub to [...] continues to answer my questions appropriately. [facility] 10-31-2021 Note CONSULTATION CONSULTATION DATE: 10/31/2021 CHIEF [...] is a poor historian, is in a assisted. PHYSICAL EXAM: FOCUSED EVALUATION OF THE LEFT SHOULDER: The patient has fullness and tenderness along the left shoulder. Significant jump response is noted along the AC joint and also along he glenohumeral in flexion and abduction of the left shoulder. Relief Pilot strength is maintained however poor. The patient has cervicothoracic kyphosis. The patient does ambulate with a motorized wheelchair. The patient is accompanied by her caregiver from the assisted. IMPRESSION: Current additional working diagnosis on the [...] Kenia Beck but unable to verify) [facility] 10-31-2021 Note CONSULTATION PROCEDURE DATE: 10/31/2021 PREOPERATIVE [...] up in the office as needed. [facility] 10-18-2021 Note CONSULTATION CONSULTATION DATE: 10/18/2021 This is a 60-year-old female with a history of MS who resides in a longterm facility. She is following up for a [...] 5'6 , weighs 320 pounds according to assisted data. GENERAL APPEARANCE: Pleasant, appropriate, in no [...] agrees with this plan of care. [facility] 07-27-2021 Note CONSULTATION CONSULTATION DATE: 07/27/2021 This [...] PLAN: An order was written for the longterm facility to apply menthol heat rub twice [...] of care and all questions were answered. [facility] Signed and Approved by: ABHINAV IGNACIO . 07/31/2021 15:07:00 [facility] 01-24-2021 Evaluation note Encounter Date Diagnosis Assessment [...] her ability to ambulate very very poor [employer] Other 06-15-2021 Miscellaneous Notes* Telephone Encounter - Alize Patton (Pss) - 08/23/2020 1:19 PM EDT Replied with phone number via my chart. * Telephone Encounter - Shahrzad Camden Pss - 08/22/2020 2:25 PM EDT Patient calling in regards to the [employer] company that provider advise patient call. States she ordered shoes and its been over a month but lost their number and has no way of getting in touch with them. Patient is requesting a call at [phone] Please advise. [facility] NoteHNO ID: [id number] Author: Quinten Lewis DPM Service: ? Author [...] follow-up as needed pending progress. Quinten Lewis, [facility] noteNo InformationNowashington county memorial hospital [employer] Other evaluation note* Diagnosis Chronic kidney disease- Primary Chronic kidney disease, unspecified Anemia Unspecified anemia Multiple sclerosis ([facility]) Multiple sclerosis CKD (chronic kidney disease) Chronic kidney disease, unspecified Morbid obesity ([facility])- Primary Morbid obesity ESRD (end stage renal disease) ([facility]) End stage renal disease Arteriovenous fistula stenosis, initial encounter ([facility]) documented in this encounter [facility] [employer] SystemHistory general Narrative - Reported* Type Description Date Medical History multiple sclerosis Medical History bilateral hearing loss Medical History hypertension Medical History diabetes mallitus Medical History thrombacytopenia Medical History kidney disease Surgical History tubal ligation Surgical History knee replacement 2006 Surgical History Foot Surgery-LEFT 2006,2008,200 9 Hospitalization History See Above [place] [employer] Other InstructionsNot on filedocumented in this encounter [facility] SportswearInstructionsNot on filedocumented in this encounter [facility] HospitalSirtris Pharmaceuticals SystemReason for visit Narrativereferral [facility] [employer] Other reason for visit NarrativePain Medicine Referral UpdateNowashington county memorial hospital [employer] Other Summary Purpose Family History No Family History Records FoundNo Family History Records FoundNo Family History Records FoundNo Family History Records FoundNo Family History Records FoundNo Family History Records FoundNo Family History Records FoundNo Family History Records FoundNo Family History Records Found Advance Directives No Advanced Directives Records FoundDocuments on File Type Date Recorded 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 Advance Directive(s) 12/04/2013 5:55 PM Latest Code Status on File Code Status Date Activated Date Inactivated Comments Full Code 09/13/2022 9:32 AM 09/20/2022 3:29 AM Latest Code Status on File Code Status Date Activated Date Inactivated Comments Full Code 09/13/2022 9:32 AM 09/20/2022 3:29 AM Hospital Course Note [facility] SUR[facility]ERY Clinical Discharge Summary PERSON INFORMATION Name DONNA MATHEWS Age 57 Years 61 Sex FEMALE Language Macedonian PCP Harjit Lopez MD Marital Status Single Med Service Ambulatory Surgery Acct# Arrival 06/03/18 12:10:14 Visit Reason SURGERY - CYSTOSCOPY Acuity LOS 006 05:41 Address: [address] [place] [id number] Comment: PROVIDER INFORMATION VITALS INFORMATION Vital Sign [...] Diagnosis 1 Neck pain (M54.2) Referral Organization [facility] urosurgery Referring Provider First Name Kendell Referring Provider Last Name Radha Referring Provider Specialty Neurologica l Surgery Referred Organization [facility] Referred Provider Jr. Galindo William Referred Address [address] [facility],[place], [place],[address] Referred Provider Specialty Pain Medicin e Referral Priority Routine Specialty Diagnoses / Procedures Referred By Laurent talavera Referred To Contact Radiology Diagnoses Morbid obesity ([facility]) ESRD (end stage renal disease) ([facility]) Arteriovenous fistula stenosis, initial encounter ([facility]) Procedures IR angiography extremity left Krystin Salcedo MD [address] [place] [address], [phone] [place] [address] Referral ID Status Reason Start Date Expiration Date V isits Requested Visits Authorized [id number] Pending Review 05/02/2023 05/01/2024 1 1 Additional Source Comments INFORMATION SOURCE (unrecogn ized section and content) DATE CREATED AUTHOR 06/26/2018 [facility] DATE CREATED AUTHOR AUTHOR'S ORGANIZ ATION 07/15/2018 [facility] DATE CREATED AUTHOR AUTHOR'S ORGANIZ ATION 06/05/2021 [facility] DATE CREATED AUTHOR AUTHOR'S ORGANIZ ATION 07/07/2021 [facility] DATE CREATED AUTHOR AUTHOR'S ORGANIZ ATION 07/08/2022 [facility] DATE CREATED AUTHOR AUTHOR'S ORGANIZ ATION 04/02/2023 [facility] DATE CREATED AUTHOR AUTHOR'S ORGANIZ ATION 05/10/2023 [facility] DATE CREATED AUTHOR AUTHOR'S ORGANIZ ATION 05/12/2023 [facility] DATE CREATED AUTHOR AUTHOR'S ORGANIZ ATION 05/20/2023 [facility] Source Comments (unrecognize d section and content) In the event this informatio n is protected by the Federal Confidentiality of Alcohol and Drug Abuse Patient Records regulations: The Federal rules restrict any use of the information to criminally investigate or prosecute any alcohol or drug abuse patient.[facility] Reason for Visit (unrecogniz ed section and content) Reason Comments Question Care Teams (unrecognized sec tion and content) 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 [facility] [employer] provides no warranty or guarantee of the accuracy or completeness of information in this document.
--- NOTE | 2023-05-29 08:09 | P.CN_ITS ---
Consult Note: HPI Data of Consult Patient: known to practice within the last 3 years Requesting Physician: Estella Hayes NP Primary Care Provider: LIYAH STOLL Consult Narrative Reason for consult: f/u Narrative: Shirley Lane a pleasant 62 year old female presents for evaluation and management of chronic left shoulder and left arm pain. Today pain 5/10 sharp pain with weakness of LUE. Previous MRI of left shoulder from 07/01 reveals full rotator cuff tear. Patient has had mild benefit from previous shoulder and trigger point injections through our office. Patient has ESRD on dialysis. Patient has not been evaluated by orthopedics or orthopedic surgery. Patients medications managed by longterm facility. cc:: CC: Estella Hayes NP Review of Systems 2 ROS0 Status of ROS 10 or more systems reviewed and unremark able except as noted in history and below Musculoskeletal Reports: extremity pain and joint pain PFSH PFSH Medical History (Updated 05/29/23 @ 08:32 by Estella Hayes NP) Neck pain ?M54.2 - Cervicalgia (ICD-10) Low back pain ?M54.50 - Low back pain, unspecified (ICD-10) Thrombosis ?I82.90 - Acute embolism and thrombosis of unspecified vein (ICD-10) Multiple sclerosis ?G35 - Multiple sclerosis (ICD-10) Hearing deficit ?H91.90 - Unspecified hearing loss, unspecified ear (ICD-10) Stroke ?I63.9 - Cerebral infarction, unspecified (ICD-10) Acid reflux ?K21.9 - Gastro-esophageal reflux disease without esophagitis (ICD-10) Obesity ?E66.9 - Obesity, unspecified (ICD-10) Diabetes ?E11.9 - Type 2 diabetes mellitus without complications (ICD-10) Kidney failure ?N19 - Unspecified kidney failure (ICD-10) High cholesterol ?E78.00 - Pure hypercholesterolemia, unspecified (ICD-10) Hypertension ?I10 - Essential (primary) hypertension (ICD-10) Surgical History History of total knee arthroplasty ?Z96.659 - Presence of unspecified artificial knee joint (ICD-10) H/O lumbosacral spine surgery ?Z98.890 - Other specified postprocedural states (ICD-10) History of tonsillectomy and adenoidectomy ?Z90.89 - Acquired absence of other organs (ICD-10) H/O knee surgery ?Z98.890 - Other specified postprocedural states (ICD-10) H/O tubal ligation ?Z98.51 - Tubal ligation status (ICD-10) H/O foot surgery ?Z98.890 - Other specified postprocedural states (ICD-10) Hx of cholecystectomy ?Z90.49 - Acquired absence of other specified parts of digestive tract (ICD- 10) H/O gastric bypass ?Z98.84 - Bariatric surgery status (ICD-10) Meds Home Medications and Allergies Home Medications ?Medication ?Instructions ?Recorded ?Confirmed ?Type Lactobacillus acidophilus 250 500 mmu cells PO DAILY 09/14/22 09/25/22 History million cell capsule (Probiotic Acidophilus) acetaminophen 650 mg 650 mg PO .q6hr PRN pain 09/14/22 09/25/22 History tablet,extended release (8 Hour Pain Reliever) amlodipine 5 mg tablet (Norvasc) 5 mg PO DAILY 09/14/22 09/14/22 History ascorbic acid (vitamin C) 500 mg 500 mg PO DAILY 09/14/22 09/25/22 History tablet,extended release (C-500) aspirin 81 mg tablet,delayed 81 mg PO DAILY 09/14/22 09/25/22 History release atorvastatin 80 mg tablet 80 mg PO QPM 09/14/22 09/25/22 History biotin 10 mg tablet 10 mg PO DAILY 09/14/22 09/25/22 History famotidine 20 mg tablet 20 mg PO DAILY 09/14/22 09/25/22 History ferrous sulfate 325 mg (65 mg 325 mg PO DAILY 09/14/22 09/25/22 History iron) tablet (Feosol) folic acid 1 mg tablet 1 mg PO DAILY 09/14/22 09/25/22 History glucosamine sulfate 500 mg tablet 500 mg PO TID 09/14/22 09/14/22 History (Glucosamine) lactulose 10 gram/15 mL oral PO QID 09/14/22 History solution lutein 6 mg capsule 6 mg PO DAILY 09/14/22 09/25/22 History magnesium hydroxide 400 mg/5 mL 30 ml PO DAILY PRN constipation 09/14/22 09/14/22 History oral suspension (Dulcolax (magnesium hydroxide)) melatonin 3 mg capsule 3 mg PO DAILY PRN sleep 09/14/22 09/14/22 History mirabegron 25 mg tablet,extended 25 mg PO DAILY 09/14/22 09/14/22 History release 24 hr (Myrbetriq) modafinil 100 mg tablet 100 mg PO QDAY 09/14/22 09/14/22 History multivitamin 1 tab PO DAILY 09/14/22 09/25/22 History nystatin 100,000 unit/gram topical 1 applic topical BID 09/14/22 09/25/22 History powder omega 8-ocb-low-fish oil 1,000 mg 1 cap PO DAILY 09/14/22 09/25/22 History (120 mg-180 mg) capsule (Fish Oil) oxcarbazepine 300 mg tablet 300 mg PO QDAY 09/14/22 09/25/22 History oxycodone 10 mg tablet 10 mg PO QDAY 09/14/22 09/14/22 History polyethylene glycol 3350 17 17 g PO DAILY 09/14/22 09/14/22 History gram/dose oral powder (ClearLax) potassium citrate 10 mEq (1,080 10 meq PO DAILY 09/14/22 09/14/22 History mg) tablet,extended release pregabalin 75 mg capsule (Lyrica) 75 mg PO BID 09/14/22 09/25/22 History sertraline 50 mg tablet (Zoloft) 50 mg PO DAILY 09/14/22 09/25/22 History tizanidine 4 mg capsule (Zanaflex) 4 mg PO Q12H PRN muscle spasticity 09/14/22 09/14/22 History tramadol 50 mg tablet 50 mg PO Q8H PRN pain 09/14/22 09/14/22 History trazodone 50 mg tablet 25 mg PO .hs 09/14/22 09/25/22 History vitamin A-vitamin C-vit E-min 1 tab PO DAILY 09/14/22 09/14/22 History tablet (Ocutabs tablet) vitamin B complex (B 1 tab PO DAILY 09/14/22 09/14/22 History Complex-Vitamin B12 tablet) Allergies Allergy/AdvReac Type Severity Reaction Status Date / Time No Known Drug Allergies Allergy Verified 09/25/22 10:30 Exam Narrative Exam Narrative: hard of hearing Constitutional Documenting provider has reviewed patient's vital signs: yes Common normals: no apparent distress, oriented x3, healthy appearing, alert and well nourished General appearance: cooperative Nutritional appearance: obese HENMT Common normals: normocephalic, hearing grossly normal bilaterally and moist oral mucous membranes Head and scalp: normocephalic Eye Common normals: PERRL Pupil: PERRL Neck & C-Spine Common normals: full ROM General: normal visual inspection Chest Common normals: inspection of chest normal Respiratory Common normals: normal respiratory effort, no retractions and no use of accessory muscles Extremity Common normals: normal to inspection Left upper extremity: shoulder joint and upper arm Other: tender to touch, strength 4/5 in LUE. pain over ac joint, suprascapular/axillary nerves, limited ROM. unable to raise arm over head, unable to perform active cross body/posterior lift off/scratch test Extremity image (front): 2 1. Extremity image (back): 2 1. 2. Neuro Common normals: oriented x3, CN's II-XII intact bilaterally, moves all extremities, no focal motor deficits, no sensory deficits noted and deep tendon reflexes 2+ bilaterally Sensorium/orientation: alert Motor exam: strength 5/5 throughout and no movement abnormalities noted Psych Common normals: mental status grossly normal, thought process normal, cooperative, affect normal, speech normal and activity/motor behavior normal Speech: normal speech Thought process: normal thought process Results Additional Findings Additional findings: If on a controlled substance or opioids, I have checked an [place] report on this patient and there are no aberrancies noted in the prescribing history.??If on a controlled substance or opioid a drug screen was completed and reviewed within the last year, and if there has not been a drug screen completed we ordered one today to monitor higher risk, state monitored pain medication use. As part of providing excellent, safe, comprehensive care, the following was completed at our patient's visit: 1. A medication reconciliation and review to ensure accurate knowledge of current/active medications, including asking our patients to inform us about any revo-bds-dolgcso medications or herbal remedies/nutritional supplements/alternative remedies. 2. A review to specifically ensure our patients have had annual screening for screening for depression, screening for tobacco use, and screening for unhealthy alcohol use. For concerning screenings had a discussion with the patient, provided patient education, and recommended follow-up with primary care provider when appropriate. If patient noted with a risk of falling, they received education on strength, gait, and balance training to prevent future risk of falling. Assessment and Plan Assessment and Plan (1) Left shoulder pain: (2) Myofascial pain: (3) Rotator cuff tear: Plan pt likely nonsurgical with ESRD, morbid obesity however we will refer to orthopedics for evaluation return to office with Dr Jacome for left suprasacpular and trapezius trigger point injections continue medication management through facility
== END 2023-05-29 07:45 | disposition home or self-care (01) ==
LOC: PM 07:44
PROVIDERS: PCP Internal Medicine; Visit Provider Nurse Practitioner
DX: M25.512 Pain in left shoulder (principal); M79.18 Myalgia, other site; M75.102 Unspecified rotator cuff tear or rupture of left shoulder, not specified as traumatic
CPT/HCPCS: G0463

== ENCOUNTER 2023-07-08 12:21 | Outpatient (OUT) | payer MEDICARE, MEDICAID, SELFPAY ==
--- OUTSIDE RECORDS SUMMARY | 2023-07-08 12:27 | XMS_ITS | CCD ---
Author Organization [facility] Care Team Providers Care Nursing Tech Name Role Phone David Gonsales Admitting Unavailable David Gonsales Attending Unavailable Harjit Lopez Primary Care Unavailable DAVID GONSALES Admitting Unavailable DAVID GONSALES Attending Unavailable HARJIT LOPEZ Primary Care Unavailable Ceci BROWN, Doug Underwood Primary Care Provider [phone] Christopher Lema Unavailable Kendell Garcia Unavailable JOSE MARTIN ., DR JARAD Decker [...] NARENDRANATH Consulting Flora vailable LAKSHMIPATHY ., NARENDRANATH Attending Flora vailable SHAREESHMIPATHShirley ., NARENDRANATH Admitting Flora vailable DR TODD GEORGE Primary Care Unavailable JOSE MARTIN ., DR JARAD Decker Admitting Unavailable REX, GLORY Primary Care Unavailable IGNACIO ., ABHINAV Consulting Unavailable GAGNON ., DR JARAD Decker Attending Unavailable SKYLER PIÑA Attending Unavailable SKYLER PIÑA Admitting Unavailable DR TODD GEORGE Primary Care Unavailable DR EL SAUNDERS V Consulting Unavailable SKYLER PIÑA Consulting Unavailable LAKSHMIPATHY ., NARENDRANATH Admitting Flora vailable LAKSHMIPATHY ., CHRISTIEENDJOSELITOATH Attending Flora vailable JERMAN, DR PELLETIER Primary Care Unavailable ALTON, DR EL Page Consulting Unavailable LAKSHMIPATHY ., NARENDRANATH Consulting Flora vailable LAKSHMIPATHY ., NARENDRANATH Admitting Flora vailable LAKSHMIPATHY ., NARJERARDOATH Attending Flora vailable JERMAN, DR PELLETEIR Primary Care Unavailable ZIEBROME, DR BANDAR Romero Consulting Unavailable LAKSHMIPATHY ., NARENDRANATH Consulting Flora vailable REX, GLORY Admitting Unavailable REX, GLORY Attending Unavailable JERMAN, DR PELLETIER Consulting Unavailable JERMAN, DR PELLETIER Primary Care Unavailable ZIEBROME, DR BANDAR Romero Consulting Unavailable REX, GLORY Consulting Unavailable GAGNON ., DR JARAD Decker Admitting Unavailable REX, GLORY Primary Care Unavailable IGNACIO .ABHINAV Consulting Unavailable GAGNON ., DR JARAD Decker Attending Unavailable Todd George MD Primary Care Provider ZIYAD ULRICH Attending Unavailable JERMAN TODD B Referring Unavailable GEORGE, TODD B Primary Care Unavailable ANDRE GRAVES Attending Unavailable GABRIELLE CONTRERAS Referring Unavailable JERMAN TODD B Primary Care Unavailable ANDRE GRAVES Attending Unavailable GABRIELLE CONTRERAS Referring Unavailable JERMAN TODD B Primary Care Unavailable ZIYAD ULRICH Referring Unavailable JERMAN TODD B Primary Care Unavailable Rosina Fink Attending Unavailab Rosina Figueredo Referring Unavailab Harjit Gonzalez Primary Care Unavailable Rosina Fink Admitting Unavailab KRYSTIN Irene Attending Unavailable KRYSTIN SALCEDO Referring Unavailable JERMAN TODD B Primary Care Unavailable ASHLYN BLACKBURN Admitting Unavailable ANDRA ZAMORA Consulting Unavailable CLAMY COOL Referring Unavailable JERMAN TODD B Primary Care Unavailable JERMAN TODD B Referring Unavailable JERMAN, TODD B Primary Care Unavailable KRYSTIN SACLEDO Referring Unavailable JERMAN, TODD B Primary Care Unavailable KRYSTIN SALCEDO Attending Unavailable JERMAN, TODD B Referring Unavailable GEORGE, TODD B Primary Care Unavailable ADDIS WISE Attending Unavailable JERMAN, TODD B Referring Unavailable GEORGE, TODD B Primary Care Unavailable ANURAG ISABEL Attending Unavailable TODD GEORGE Primary Care Unavailable KRYSTIN SALCEDO Attending Unavailable KRYSTIN SALCEDO Admitting Unavailable KRYSTIN SALCEDO Referring Unavailable TODD GEORGE Primary Care Unavailable KRYSTIN SALCEDO Attending Unavailable TODD GEORGE Referring Unavailable TODD GEORGE Primary Care Unavailable Allergies Allergy Classification Reported Allergen(s) Allergy Type Date of Onset Reaction(s) Facility (1 source) No Known Medication Allergies; Translations: [No Known Medication Allergies] Propensity to adverse reactions to drug (disorder) [facility] Repository Medications Current Medications Medication Drug Class(es) [...] mouth in the morning. 0 Active calcitriol 0.46298 mg oral capsule (2 sources) Vitamin D3 [...] tablets (1,000 mg total) and swallow. Take , , Sat (she takes the medication with her on [...] Start: 05-23-2014 take 1 tablet by attila three times daily cholecalciferol (VITAMIN D) 1,000 unit tab Take 1 tablet by mouth three times daily. May resume after taking one week course of 50,000uVit D (start on 05/24/2014) 0 05/23/2014 Active Comment on above: Take 1 tablet by attila three times daily. May resume after taking one week course of 50,000uVit D (start on 05/24/2014) Darvocet-N 100 100-650 MG (2 sources) take 1 tablet by mouth every four hours as needed for pain Darvocet-N 100 100-650 MG 1 tablet as needed for pain Orally every 4 hrs Active docusate sodium 50 mg / sennosides, nursing home 8.6 mg oral tablet (2 sources) Start: [...] venous catheter. 0 08/22/2022 Active lactobacillus acidophilus [id number] unt / pectin 100 mg oral tablet (2 sources) take 1 tablet by mouth once daily at breakfast acidophilus-pect in, citrus 25 million cell -100 mg tablet Take 1 tablet by mouth daily with breakfast. 0 Active lactulose 42906 mg powder for oral solution (3 sources) [...] NVELA) 800 mg tablet sodium zirconium cyclosilicate 87034 mg powder for oral suspension (1 source) [...] on above: Take 1 capsule by mo uth once daily. Fish Oil-[place]-3 Fatty Acids (FISH OIL) 340-1,000 mg cap (1 source) Fish Oil-[place]-3 Fatty Acids (FISH OIL) 340-1,000 mg cap Take 2 capsules by mouth. 0 Active Comment on above: Take 2 capsules by m outh. FOLIC ACID/MV,FE,OTHER MIN/LUT (CERTAVITE WITH LUTEIN [...] 0 Active take 1 tablet by attila th every twenty-four hours Lisinopril 20 MG 1 tablet Orally Once a day for 30 day(s) Active Comment on above: Take 10 mg by mouth once daily. multivitamin with minerals tablet (1 source) take 1 tablet by mouth once daily multivitamin with minerals tablet Take 1 tablet by mouth once daily. 0 Active Comment on above: Take 1 tablet by attila th once daily. omeprazole 20 mg delayed release oral capsule (1 source) Proton Pump Inhibitor take 1 capsule by mouth twice daily omeprazole 20 mg capsule Take 20 mg by mouth twice daily. 0 Active Comment on above: Take 20 mg by mouth twice daily. polyethylene glycol 3350 95419 mg powder for oral solution (4 sources) Osmotic Laxative Start: 5 take 1 dose by mouth once [...] Active Problems Problem Classification Problem Date Documented Da te Episodic/Chronic Aortic; peripheral; and visceral artery aneurysms (1 source) Aneurysm of unspecified site; Translations: [Aneurysm of unspecified site] Onset: 05-30-2023 Chronic Chronic kidney disease (10 sources) Chronic kidney [...] Chronic Complication of device; implant or graft (3 sources) Arteriovenous fistula stenosis; Translations: [Stenosis of other vascular prosthetic devices, implants and grafts, initial encounter] Onset: 04-01-2023 05-02-2023 Chronic Complications of surgical procedures or medical care (1 source) Complication of other artery following a procedure, not elsewhere classified, initial encounter; Translations: [Complication of other artery following a procedure, not elsewhere classified, initial encounter] Onset: 05-30-2023 Episodic Deficiency and other anemia (2 sources) Anemia [...] elsewhere classified] Onset: 09-14-2022 09-14-2022 Chronic Other gastrointestinal disorders (1 source) Other fecal abnormalities; Translations: [Other fecal abnormalities] Onset: 06-18-2023 Episodic Other nervous system disorders (1 source) Other chronic pain; Translations: [OTHER CHRONIC PAIN] Onset: 06-15-2022 Chronic Other non-traumatic joint disorders (3 sources) Charcot's arthropathy; Translations: [Charcot's joint, unspecified site] Onset: 03-27-2013 03-27-2013 Chronic Other non-traumatic joint disorders (4 sources) Pain in left shoulder; Translations: [PAIN IN LEFT SHOULDER] Onset: 07-04-2022 Episodic Other nutritional; endocrine; and metabolic disorders (5 sources) Morbid obesity; Translations: [Morbid (severe) obesity due to excess calories] Onset: 09-13-2022 09-13-2022 Chronic Other nutritional; endocrine; and metabolic disorders (2 sources) Morbid (severe) obesity due to excess calories; Translations: [Morbid (severe) obesity due to excess calories] Onset: 01-24-2021 Resolved: 01-24-2021 Chronic Other screening [...] cervical disc degeneration, unspecified cervical region] Onset: 05-25-2022 Chronic Spondylosis; intervertebral disc disorders; other back problems (7 sources) Cervicalgia; Translations: [Cervical disc disorder with radiculopathy, unspecified cervical region] Onset: 01-24-2021 Resolved: 01-24-2021 Episodic Unclassified (2 sources) DX INCONTINENCE; Translations: [DX INCONTINENCE] Onset: 07-09-2018 Unclassified (1 source) Post-op Onset: 04-01-2023 Unclassified (1 source) Colon Cancer Screening Onset: 06-18-2023 Past or Other Problems Problem Classification Problem [...] Translations: [OTHER MUSCLE SPASM] Onset: 01-29-2022 Episodic Other nervous system disorders (1 source) Other acute postprocedural pain; Translations: [Other acute postprocedural pain] Onset: 02-25-2023 Episodic Phlebitis; thrombophlebitis and thromboembolism (3 sources) [...] Test Name Value Interpretation Reference Range Facility BASIC METABOLIC PANLon 05-31 Anion gap [Moles/Vol] 10 mmol/L Normal 5-15 [facility] Comment on above: Performed By: #### C BCA, BMP #### [facility] ([id number]) [address], [address] [place] [address] Calcium [Mass/Vol] 7.9 mg/dL Low 8.5-10.5 [facility] Comment on above: Performed By: #### C BCA, BMP #### [facility] ([id number]) [address], [address] [place] [address] Chloride [Moles/Vol] 98 mmol/L Normal 98-109 [facility] Comment on above: Performed By: #### C BCA, BMP #### [facility] ([id number]) [address], [address] [address] CO2 [Moles/Vol] 29 mmol/L Normal 22-32 [facility] Comment on above: Performed By: #### C BCA, BMP #### [facility] ([id number]) [address], [address] [place] [address] Creatinine [Mass/Vol] 3.70 mg/dL High 0.40-1.00 [facility] Comment on above: Result Comment: METH OD TRACEABLE TO IDMS STANDARD Performed By: #### C BCA, BMP #### [facility] ([id number]) [address] [address] GFR/1.73 sq M.predicted among non-blacks MDRD (S/P/Bld) [Vol rate/Area] 13 mL/min/{1.73_m2} Low >59 [facility] Comment on above: Result Comment: Reported eGFR is based on the CKD-EPI 2020 equation that does not use a race coefficient. Performed By: #### C BCA, BMP #### [facility] ([id number]) [address] [address] Glucose [Mass/Vol] 93 mg/dL Normal 65-99 [facility] Comment on above: Performed By: #### C BCA, BMP #### [facility] ([id number]) [address], [address] [place] [address] [place] [address] Potassium [Moles/Vol] 3.9 mmol/L Normal 3.5-5.0 [facility] Comment on above: Performed By: #### Trini SMITH, BMP #### [facility] ([id number]) [address], [address] [place] [address] Sodium [Moles/Vol] 137 mmol/L Normal 134-146 [facility] Comment on above: Performed By: #### C LUIS, BMP #### [facility] ([id number]) [address], [address] [place] [address] Urea nitrogen [Mass/Vol] 26 mg/dL Normal 5-27 [facility] Comment on above: Performed By: #### Trini SMITH, BMP #### [facility] ([id number]) [address], [address] [place] [address] CBC AND AUTO DIFFon 06-01-19 24 ABSOLUTE BASOPHIL 0.0 X10E9/L Normal 0.0-0.2 [facility] Comment on above: Performed By: #### Trini SMITH, BMP #### [facility] ([id number]) [address], [address] [place] [address] ABSOLUTE NEUTROPHIL 4.8 X10E9/L Normal 1.5-6.6 [facility] Comment on above: Performed By: #### Trini SMITH, BMP #### [facility] ([id number]) [address], [address] [place] [address] Basophils/100 WBC (Bld) 0.3 % Normal [facility] Comment on above: Performed By: #### Trini SMITH, BMP #### [facility] ([id number]) [address], [address] [place] [address] Eosinophils (Bld) [#/Vol] 0.5 10*3/uL High 0.0-0.4 [facility] Comment on above: Performed By: #### C LUIS, BMP #### [facility] ([id number]) [address], [address] [place] [address] Eosinophils/100 WBC (Bld) 6.1 % Normal [facility] Comment on above: Performed By: #### C LUIS, BMP #### [facility] ([id number]) [address], [address] [place] [address] Erythrocyte distribution width (RBC) [Ratio] 19.2 % High 11.5-15.0 [facility] Comment on above: Performed By: #### C LUIS, BMP #### [facility] ([id number]) [address], [address] [place] [address] Hematocrit (Bld) [Volume fraction] 25.0 % Low 35-47 [facility] Comment on above: Performed By: #### C LUIS, BMP #### [facility] ([id number]) [address], [address] [place] [address] Hemoglobin (Bld) [Mass/Vol] 8.6 g/dL Low 11.7-15.5 [facility] Comment on above: Performed By: #### C LUIS, BMP #### [facility] ([id number]) [address], [address] [place] [address] Lymphocytes (Bld) [#/Vol] 1.6 10*3/uL Normal 1.0-3.5 [facility] Comment on above: Performed By: #### C LUIS, BMP #### [facility] ([id number]) [address], [address] [place] [address] Lymphocytes/100 WBC (Bld) 20.1 % Normal [facility] Comment on above: Performed By: #### C BCA, BMP #### [facility] ([id number]) [address], [address] [place] [address] MCH (RBC) [Entitic mass] 31.8 pg Normal 27-34 [facility] Comment on above: Performed By: #### C BCA, BMP #### [facility] ([id number]) [address], [address] [place] [address] MCHC (RBC) [Mass/Vol] 34.5 g/dL Normal 32-36 [facility] Comment on above: Performed By: #### C BCA, BMP #### [facility] ([id number]) [address], [address] [place] [address] MCV (RBC) [Entitic vol] 92 fL Normal 80-100 [facility] Comment on above: Performed By: #### C LUIS, BMP #### [facility] ([id number]) [address], [address] [place] [address] Monocytes (Bld) [#/Vol] 1.0 10*3/uL High 0-0.9 [facility] Comment on above: Performed By: #### C BCA, BMP #### [facility] ([id number]) [address], [address] [place] [address] Monocytes/100 WBC (Bld) 12.4 % Normal [facility] Comment on above: Performed By: #### C BCA, BMP #### [facility] ([id number]) [address], [address] [place] [address] Neutrophils/100 WBC (Bld) 61.1 % Normal [facility] Comment on above: Performed By: #### C BCA, BMP #### [facility] ([id number]) [address], [address] [place] [address] Platelet mean volume (Bld) [Entitic vol] 8.5 fL Normal 7-12 [facility] Comment on above: Performed By: #### C BCA, BMP #### [facility] ([id number]) [address], [address] [place] [address] Platelets (Bld) [#/Vol] 150 10*3/uL Normal 150-450 [facility] Comment on above: Performed By: #### C BCA, BMP #### [facility] ([id number]) [address], [address] [place] [address] RBC COUNT 2.72 X10E12/L Low 3.80-5.20 [facility] Comment on above: Performed By: #### C BCA, BMP #### [facility] ([id number]) [address], [address] [place] [address] WBC (Bld) [#/Vol] 7.9 10*3/uL Normal 4.0-11.0 [facility] Comment on above: Performed By: #### C BCA, BMP #### [facility] ([id number]) [address], [address] [place] [address] BASIC METABOLIC PANLon 05-30 Anion gap [Moles/Vol] 10 mmol/L Normal 5-15 [facility] Comment on above: Performed By: #### B MP, CBC #### [facility] ([id number]) [address], [address] [place] [address] Calcium [Mass/Vol] 7.6 mg/dL Low 8.5-10.5 [facility] Comment on above: Performed By: #### B MP, CBC #### [facility] ([id number]) [address], [address] [place] [address] Chloride [Moles/Vol] 95 mmol/L Low 98-109 [facility] Comment on above: Performed By: #### B MP, CBC #### [facility] ([id number]) [address], [address] [place] [address] CO2 [Moles/Vol] 29 mmol/L Normal 22-32 [facility] Comment on above: Performed By: #### B MP, CBC #### [facility] ([id number]) [address], [address] [place] [address] Creatinine [Mass/Vol] 5.01 mg/dL High 0.40-1.00 [facility] Comment on above: Result Comment: METH OD TRACEABLE TO IDMS STANDARD Performed By: #### B MP, CBC #### [facility] ([id number]) [address], [address] [place] [address] GFR/1.73 sq M.predicted among non-blacks MDRD (S/P/Bld) [Vol rate/Area] 9 mL/min/{1.73_m2} Low >59 [facility] Comment on above: Result Comment: Reported eGFR is based on the CKD-EPI 2020 equation that does not use a race coefficient. Performed By: #### B MP, CBC #### [facility] ([id number]) [address], [address] [place] [address] Glucose [Mass/Vol] 95 mg/dL Normal 65-99 [facility] Comment on above: Performed By: #### B MP, CBC #### [facility] ([id number]) [address] [place] [address] Potassium [Moles/Vol] 3.7 mmol/L Normal 3.5-5.0 [facility] Comment on above: Performed By: #### B MP, CBC #### [facility] ([id number]) [address], [address] [place] [address] Sodium [Moles/Vol] 134 mmol/L Normal 134-146 [facility] Comment on above: Performed By: #### B MP, CBC #### [facility] ([id number]) [address], [address] [place] [address] Urea nitrogen [Mass/Vol] 40 mg/dL High 5-27 [facility] Comment on above: Performed By: #### B MP, CBC #### [facility] ([id number]) [address], [address] [place] [address] COMPLETE BLOOD COUNTon 05-30 Erythrocyte distribution width (RBC) [Ratio] 17.7 % High 11.5-15.0 [facility] Comment on above: Performed By: #### B MP, CBC #### [facility] ([id number]) [address], [address] [place] [address] Hematocrit (Bld) [Volume fraction] 16.9 % Low 35-47 [facility] Comment on above: Performed By: #### B MP, CBC #### [facility] ([id number]) [address], [address] [place] [address] Hemoglobin (Bld) [Mass/Vol] 5.8 g/dL Critically low 11.7-15.5 [facility] Comment on above: Performed By: #### B MP, CBC #### [facility] ([id number]) [address], [address] [place] [address] MCH (RBC) [Entitic mass] 33.5 pg Normal 27-34 [facility] Comment on above: Performed By: #### B MP, CBC #### [facility] ([id number]) [address], [address] [place] [address] MCHC (RBC) [Mass/Vol] 34.7 g/dL Normal 32-36 [facility] Comment on above: Performed By: #### B MP, CBC #### [facility] ([id number]) [address], [address] [place] [address] MCV (RBC) [Entitic vol] 97 fL Normal 80-100 [facility] Comment on above: Performed By: #### B MP, CBC #### [facility] ([id number]) [address], [address] [place] [address] Platelet mean volume (Bld) [Entitic vol] 8.8 fL Normal 7-12 [facility] Comment on above: Performed By: #### B MP, CBC #### [facility] ([id number]) [address], [facility] [address] [place] [address] Platelets (Bld) [#/Vol] 136 10*3/uL Low 150-450 [facility] Comment on above: Performed By: #### B MP, CBC #### [facility] ([id number]) [address] [place] [address] RBC COUNT 1.75 X10E12/L Low 3.80-5.20 [facility] Comment on above: Performed By: #### B MP, CBC #### [facility] ([id number]) [address] [place] [address] WBC (Bld) [#/Vol] 7.1 10*3/uL Normal 4.0-11.0 [facility] Comment on above: Performed By: #### B MP, CBC #### [facility] ([id number]) [address], [facility] [address] [place] [address] IR ANGIO EXTREMITY LTon 03-2 IR ANGIO EXTREMITY LT IR ANGIO EXTREMITY LT LEFT UPPER EXTREMITY FISUTLAGRAM, ANGIOPLASTY CLINICAL INDICATION: 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 SEDATION: The patient?s cardiopulmonary status was evaluated and the patient is suitable for moderate sedation. During the course of the procedure, the patient was sedated with Fentanyl 350 mcg intravenously and Versed 5 mg intravenously, while being monitored with ECG, blood pressure monitoring, and pulse oximeter by appropriately trained personnel, for a total sedation time of 180 minutes of [id number] moderate sedation was provided by the same personnel. Following the procedure, the patient was recovered according to the moderate sedation policy. ANESTHESIA: 10 mL of 1% lidocaine were used for skin and subcutaneous tissue local anesthesia. TIME OUT: [place] Protocol Time Out Verification performed. PROCEDURE: Automatic radiation exposure lowering techniques were utilized. All elements of maximal sterile barrier techniques followed including: cap and mask and sterile gown and sterile gloves and a large sterile sheet and hand hygiene and 2% chlorhexidine for cutaneous antisepsis. The total fluoroscopic time used during the procedure was 19.5 minutes, and the total fluoroscopic spot images obtained were 9 fluoroscopy loops, 7 DSA runs, and 1 ultrasound image saved in PACS , and the reference air kerma 93 mGy. The patient was taken to the fluoroscopic suite and positioned supine on the fluoroscopic table. The left upper extremity was prepped and draped in usual sterile fashion. Timeout was observed. Sedation was initiated. Ultrasound was used to evaluate the fistula, situated in a large lipectomy defect in the anterior left upper arm. The fistula was patent, with normal directional (central) flow. I identified the arterial anastomosis, just distal to and on the medial aspect of the antecubital crease. Documentation ultrasound images were saved in the permanent medical record. Direct ultrasound guidance was used to access the midportion of the fistula, directed towards the arterial anastomosis. Once I obtained access with direct puncture set, I upsized the wire and placed a short 5 [place] sheath. Contrast was injected, refluxing downstream and shown an approximate 8-9 mm vein and then washing out centrally. The fistula near the sheath position was narrowed, likely due to the sheath and possibly due to spasm. Noting this, I give the patient 5000 units of heparin IV. The Kumpe catheter was placed through the sheath directed distally. Contrast was injected near the arterial anastomosis (identified from operative notes/diagrams) however I could not reflux the arterial anastomosis. There were multiple additional draining veins, including one with a focal narrowing, likely a vein that was previously narrowed to direct ultrasound of the cephalic vein. Despite a long attempt using multiple wires and catheters, I was unable to access the arterial anastomosis, which was well marked with 3 surgical clips. The anastomosis was well visualized by ultrasound, and even using ultrasound guidance during guidewire manipulation, I was unable to cross it. Given the high Doppler velocities and the visual narrowing on ultrasound, I decided to access the brachial artery, which was readily visible by ultrasound in the medial arm above the elbow, and attempt to cross the anastomosis from the arterial side towards the fistula. Ultrasound was again used for access, saved in an image in the permanent medical record showing vessel patency and normal directional flow. A micropuncture introducer was placed in the brachial artery. I was able to easily pass a 0.018 wire through the arteriovenous anastomosis on the first attempt from the arterial side. The wire was advanced out in the fistula towards the sheath. I then snared the wire from the sheath, pulling out. Most of the wire was pulled through the micropuncture introducer, with a small segment left outside the introducer and secured with a hemostat. I was then able to advance a 4 x 20 mm balloon across the anastomosis over the micro-wire with through and through access. The anastomosis was dilated to 4 mm. We were able to observe this with both fluoroscopy and ultrasound, showing the balloon centered across the stenosis and dilated. A 4 Nepali catheter was advanced through the sheath over the microwire after the balloon was removed, and was easily advanced up the brachial artery. At this Plan was to remove the micropuncture access from the brachial artery, perform final DSA, and eventually remove the access from the fistula. While removing the micropuncture access, I had difficulty palpating the artery to compress it, which resulted in rapid formation of a hematoma. With ultrasound I was able to localize the artery and applied pressure for 10 minutes. Subsequent ultrasound raise suspicion (more content not included)... Normal [facility] POTASSIUMon 02-25-2023 Potassium [Moles/Vol] 5.4 mmol/L High 3.5-5.0 [facility] Comment on above: Performed By: #### 2 823-3 #### [facility] ([id number]) [address], [address] [place] [address] MRI SHOULDER LT WO CONon MRI SHOULDER [...] HYALINE CARTILAGE: Complete loss of cartilage with [id number] articulation between the humeral head and glenoid, [...] by: BANDAR SHOOK Date: 2022-07-05 07:38 Normal 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 LOCATION: [facility] BREAST COMPOSITION: Heterogeneously dense,which may obscure [...] LUMP SHOULD BE BIOPSIED. Dictated by: El Saunders MD on 05/11/2022 at 12:29 Approved by: El Saunders MD on 05/11/2022 at 12:31 Normal [facility] XR DEXA BONE DENSITYon 05-10 XR DEXA [...] High fracture risk Electronically authenticated by: EL SAUNDERS Date: 2022-05-10 16:17 Normal [facility] MRI BRAIN WO W CONon 023 MRI [...] BANDAR SHOOK Date: 2022-04-13 07:38 Normal [facility] BUNon 04-12-2022 Urea nitrogen [Mass/Vol] 37.0 mg/dL Critically high 7.0-18.0 [facility] Comment on above: Performed By: #### C KRIS, BUN #### [facility] [address] [address] [address] Ellen Layne CREATININEon 04-12-2022 Creatinine [Mass/Vol] 1.79 mg/dL Critically high 0.55-1.02 [facility] Comment on above: Performed By: #### C KRIS, BUN #### [facility] [address] [address] [address] Ellen Layne EGFR-AF FILIPINO 35 mL/min/1.73m2 Critically low >=60 [facility] Comment on above: Performed By: #### C KRIS, BUN #### [facility] [address] [address] [address] Ellen Layne EGFR-NON AF FILIPINO 29 mL/min/1.73m2 Critically low >=[address] [facility] Comment on above: Performed By: #### C KRIS, BUN #### [facility] [address] [address] [address] Ellen Layne Gastroenterology Office/Clin ic Noteon 05-18-2021 Gastroenterology Office/Clinic Note Chief Complaint ref by [facility]- abnormal labs HPI Staff This is a 60 year old female who presents today for a referral by [facility] for complaints of abnormal renal labs. 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 2. Screen for colon cancer (Z12.11: Encounter for screening for malignant neoplasm of colon) Documentation services were performed after patient or guardian consented to allow [employer] to record this visit. ANABELLE document improvement specialist and provider reviewed before signing. ANABELLE: [...] mg= 1 tab(s), Oral, Daily Vitamin D, 7[address] International_Unit, Oral, qWeek Zanaflex 4 mg Tab, 4 mg= 1 tab(s), Oral, Daily Zinbryta, 150 mg, SubCutaneous, qMonth Allergies No Known Allergies Social History Alcohol - Denies Alcohol Use, 10/19/2010 Past, 10/19/2010 Substance Abuse - Denies Substance Abuse, (more content not included)... Normal [facility] Comment on above: Result Comment: Elec tronically Signed By: VANDA BROWN, Yamil\.br\Date and Time Signed: 05/18/21 13:10 EST\.br\Electronically Co-Signed By: Gertrude Zepeda\.br\Date and Time Co-Signed: 05/15/21 14:41 EST Ambulatory Visit Summaryon 0 05-15-2021 Ambulatory Visit Summary SHIRLEY MATHEWS :1960 Visit Date:05/15/2021 Ambulatory Visit Instructions [...] no longer receiving treatment for. DVT Osteopenia Jose Barclay [facility] Wilfrido 08-22-2020 [facility] Telephone ([facility]) REIDSHIRLEY Nelly ([id number]) 1960 F Date Time Provider Department 08/22/20 QUINTEN LEWIS [facility] During your visit today, we recorded the following information about you: Shahrzad Hannah [facility] 08/22/2020 2:27 PM Signed Patient calling in regards to the Moverati that provider advise patient call. States she ordered shoes and its been over a month but lost their number and has no way of getting in touch with them. Patient is requesting a call at [phone] Please advise. Alize Patton 08/23/2020 1:19 PM Signed Replied with phone number via my chart. Allergies As of Date: 08/22/2020 (No Known Allergies) Date Reviewed: 07/27/2020 Reviewed by: Alize ([facility]) Abdi - Fully Assessed Reason for Visit: Question [5717] Prescriptions as of 07/04/2021 - atorvastatin (LIPITOR) 80 mg tablet - traMADol (ULTRAM) 50 mg tablet Take 50 mg by mouth every 8 hours as needed. - tiZANidine (ZANAFLEX) 4 mg tablet Take 4 mg by mouth with meals and at bedtime. - FOLIC ACID/MV,FE,OTHER MIN/LUT (CERTAVITE WITH LUTEIN ORAL) Take by mouth. - Fish Oil-[place]-3 Fatty Acids (FISH OIL) 340-1,000 mg cap [...] Status:Closed by SHAHRZAD DONIS on 07/04/21 Normal [facility] CNOVon 07-27-2020 CNOV Office Visit (LOORRM ) SHIRLEY MATHEWS ([id number]) 1960 F Date Time Provider Department 07/27/20 2:00 PM QUINTEN LEWISORRFrieda During your visit today, we recorded the [...] Date Reviewed: 07/27/2020 Reviewed by: Alize Land Tech - Fully Assessed Reason for Visit: Neuropathy [...] Encounter Status:Closed by QUINTEN LEWIS on 07/28/20 Normal [facility] C Urineon 06-06-2018 C Urine urine taken from cystoscope intraop for culture >100,000 cfu/ml Escherichia coli and 40,000 cfu/ml Enterococcus faecalis ORGANISM EC [employer] --- SUSCEPTIBILITY -- ORGANISM ID: 1 ANTIBIOTIC INTERPRETATION EVAN STATUS ORGANISM ECEC Amik S <=16 Verified Amox/Cla S <=8/4 Verified Amp R >16 Verified Amp/Sul I 16/8 Verified Cefaz S <=8 Verified Cefep S <=4 Verified Cefo S <=2 Verified Ceftaz S <=1 Verified Ceftri S <=8 Verified Cefur S <=4 Verified Cipro S <=1 Verified Ertap S <=2 Verified Gent S <=4 Verified Imi S <=1 Verified Levo S <=2 Verified Nitro S <=32 Verified Pip/Felipe S <=16 Verified Tetra S <=4 Verified Tobra S <=4 Verified Tri/Sulf S <=/38 Verified --- SUSCEPTIBILITY -- ORGANISM ID: 2 [...] > Verified Vanc S 1 Verified Normal [facility] Comment on above: Performed By: #### [id number] #### [facility] (DEFAULT) [address] [place] [address] Coding Summaryon 06-05-2018 Coding Summary CODING DATE: 06/05/2018 [facility] STATUS: Home PAYOR: Medicare MC APC DESCRIPTION 5379 Level 2 Urology and Related Services ADMIT DX: REASON FOR VISIT DX: R32 Unspecified urinary incontinence FINAL DX: PRINCIPAL: R32 Unspecified urinary incontinence SECONDARY: R93.41 Abnormal radiologic findings on diagnostic imaging of renal pelvis, ureter, or bladder G35 Multiple sclerosis N32.89 Other specified disorders of bladder PYMT PROC APC STAT DESCRIPTION DOCTOR NAME DATE 72 T Cystourethroscopy David Gonsales MD 06/03/2018 (separate procedure) NOTE: The code number assigned matches the documented diagnosis and / or procedure in the patient's chart. However, the narrative phrase printed from the coding software may appear abbreviated, or result in slightly different terminology. Coded By: Jessica Valiente Date Saved: 06/05/2018 07:20 am [facility] History and Physicalon 06-05 History and Physical [id number] [facility] Consent Formson 06-04-2018 Consent Forms [id number] [facility] Outside Recordson 06-04-2018 Outside Records [id number] [facility] Provider Orderson 06-04-2018 Protein mass conc [id number] [facility] Inpatient Patient Summaryon 06-03-2018 Inpatient Patient Summary [id number] [place] [id number] Patient Discharge Instructions Name: SHIRLEY MATHEWS : 62 Patient [address]: [address] [place] [address] Primary Care Provider: Name: Harjit Lopez MD After you are discharged if you find you have any questions, please, call [phone] ext [phone] to speak to a nurse. Discharge Diagnosis: Urinary incontinence If you received any narcotics, sedation, or any other medication that causes drowsiness for the next 24 hours, unless otherwise directed: ? Do not drive a car. ? Do not operate machinery such as power X BODY, Breadcrumbtrackingn mowers, drills, sewing machines, or stoves ? Avoid alcoholic beverages and drugs for allergies, nerves, or sleep ? Do not make important personal or business decisions or sign any legal documents [facility] would like to thank you for allowing us to assist you with your healthcare needs. The following includes patient education materials and information regarding your injury/illness. SILKE MATHEWSANCE Nelly has been given the following list of follow-up instructions, prescriptions, and patient education materials: Follow-up Instructions With: Address: When: Davidflora Gonsales [address], [address] [place], [place] [id number] Business (1) With: Address: When: Harjit Lopez [address] [id number] Business (1) Medications During the course of [...] for Disease Control and Prevention November 2013 [facility] MAGR Intraoperative Recordon 06-03-2018 MAGR Intraoperative Record MAGR Intra-Op Record Summary Primary Physician: David Gonsales MD Finalized Date/Time: 06/03/18 16:22:13 Pt. Name: SHIRLEY MATHEWS/Sex: 1960 FEMALE Med Rec #: [id number] Physician: David Gonsales MD Financial #: [id number] Pt. Type: D Room/Bed: / Admit/Disch: 06/03/18 12:10:14 - Institution: Case Times MAGR Entry 1 Patient In Room Time 06/03/18 15:45:00 Out Room Time 06/03/18 16:04:00 Anesthesia Start Time 06/03/18 15:52:00 Stop Time 06/03/18 16:03:00 Surgery Start Time 06/03/18 15:52:00 Stop Time 06/03/18 16:03:00 Last Modified By: Irlanda Knox RN 06/03/18 16:03:18 Case Attendance MAGR Entry 1 Entry 2 Entry 3 Case Attendee Alfonzo BROWN, Irlanda Reeder RN, Linda M Role Performed Surgeon - Primary Registered Pharmacy Technician Scrub Personnel Time In 06/03/18 15:45:00 06/03/18 [...] Unfinalizing Freetext Reason for Unfinalizing 06/03/18 16:21 MHBLONG Modify Pick List [facility] MAGR Preoperative Recordon 0 06-03-2018 MAGR Preoperative Record MAGR Pre-Op Record Summary Primary Physician: David Gonsales MD Finalized Date/Time: 06/03/18 15:51:38 Pt. Name: SHIRLEY MATHEWS /Sex: 1960 FEMALE Med Rec #: [id number] Physician: David Gonsales MD Financial #: [id number] Pt. Type: D Room/Bed: / Admit/Disch: 06/03/18 [...] Signed By: Irlanda Knox RN 06/03/18 15:51 [facility] Patient Handouton 06-03-2018 Patient Handout [facility] Progress Note - Nurseon 05-10 Protein mass conc Talked with Yesenia @ [facility], instructed to have pt here @ 1030 on 06-03-18 and to fax Med. list-verbalized understanding. [Electronically Signed on: 06/02/2018 10:58 EDT] Cherise Espinoza RN [Verified on: 06/02/2018 10:58 EDT] Cherise Espinoza RN [facility] Vital Signs Date Time Vital Sign Value Performing Clinician Facility 05-02-2023 12:12-0500 Body height 167.6 cm [facility] 05-02-2023 12:12-0500 Body mass index (BMI) [Ratio] 47.64 kg/m2 [facility] 05-02-2023 12:12-0500 Body weight 133.81 kg Krystin Salcedo MD [facility] 05-02-2023 12:12-0500 Diastolic blood pressure 70 mm[Hg] K[facility]in [facility]cedo MD [facility] 05-02-2023 12:12-0500 Systolic blood pressure 138 mm[Hg] Krystin Salcedo MD Work Phone: [facility] 01-24-2021 09:20-0500 Body height 170.18 cm Kendell Garcia Other [facility] Other 01-24-2021 09:20-0500 Body mass index (BMI) [Ratio] 49.17 kg/m2 Kendell Garcia Other [facility] Other 01-24-2021 09:20-0500 Body weight 142.43 kg Kendell Garcia Other [facility] Other 01-24-2021 09:20-0500 Diastolic blood pressure 86 mm[Hg] Kendell Garcia Other [facility] Other 01-24-2021 09:20-0500 Systolic blood pressure 134 mm[Hg] Kendell Garcia Other [facility] Other Encounters Encounter Date Encounter Type Care Provider Facility Start: 06-18-2023 End: 06-18-2023 ambulatory ADDIS WISE [facility] Start: 06-14-2023 End: 06-14-2023 ambulatory KRYSTIN Vega [facility] Start: 06-03-2023 End: 06-03-2023 ambulatory KRYSTIN [facility] Start: 05-31-2023 End: 06-02-2023 ambulatory TODD GEORGE [facility] Start: 05-31-2023 End: 06-02-2023 ambulatory AMY YAÑEZ [facility] Start: 05-30-2023 End: 06-01-2023 ambulatory KRYSTIN Vega [facility] Start: 05-02-2023 End: 05-02-2023 ambulatory KRYSTIN J [facility] Start: 05-02-2023 End: 05-02-2023 Postop follow up visit related to original px Krystin Salcedo MD Work Phone: [facility] Comment on above: Morbid obesity ([facility]) (Primary Dx); ESRD (end stage renal disease) ([facility]); Arteriovenous fistula stenosis, initial encounter ([facility]) Start: 04-17-2023 End: 04-18-[address] [facility] Start: 04-12-2023 End: 05-10-2023 ambulatory ANDRE Mello [facility] Start: 04-01-2023 End: 04-01-2023 ambulatory [facility] Start: 03-05-2023 Telephone encounter Elba Ramirez [facility] Start: 02-28-2023 End: 03-11-2023 ambulatory ANDRE GRAVES [facility] Start: 02-25-2023 End: 02-25-2023 Evaluation and management of inpatient ANURAG ISABEL [facility] Start: 02-25-2023 End: 02-25-2023 Evaluation and management of inpatient KRYSTIN SALCEDO [facility] Start: 02-19-2023 ambulatory Rosina Hodges acility:[facility] Start: 07-04-2022 End: 07-05-2022 ambulatory NARENDRANATH [...] Facility:[facility] Start: 10-18-2021 End: 10-19-[address] JARDA GAGNON . Facility:[facility] Start: 07-27-2021 End: 07-28-[address] JARAD GAGNON . Facility:[facility] Start: 07-11-[address] JARAD GAGNON . Faci lity:[facility] Start: 02-21-2021 End: 02-21-2021 ambulatory Kendell Garcia Other [facility] Other Start: 02-21-2021 Telephone encounter Kendell Garcia [facility] Start: 01-24-2021 End: 01-24-2021 ambulatory Kendell Garcia Other [facility] Other Start: 11-16-2021 Office outpatient ne w 45 minutes Kendell GIORDANO [facility] Start: 08-22-2020 Telephone encounter José Lewis DPM Work Phone: Orthopaedics Comment on above: Question Start: 07-09-2018 End: 07-09-2018 Patient encounter procedure DAVID GONSALES [facility] Start: 06-03-2018 End: 06-26-2018 Patient encounter procedure David Gonsales Facility:[facility] Procedures Date Procedure Procedure Detail Performing Clinician Start: 09-13-2022 Adult depression scr eening assessment Elba Hernandez Start: 07-09-2018 DISCHARGE PATIENT MARTIN GONSALES Plan of Treatment Date Care Activity Detail Author Start: 12-08-2028 Subsequent hospital visit by physician 12/08/2028 7:37 AM EDT Hospital Encounter [facility] [address] [place] [address] Harjit Lopez MD [facility] [place] [address] Chronic kidney disease (Primary Dx); Anemia; Multiple sclerosis ([facility]); CKD (chronic kidney disease) Discharge Disposition: Home [facility] Comment on above: Chronic kidney disea se (Primary Dx); Anemia; Multiple sclerosis (CMS-HCC); CKD (chronic kidney disease) Start: 01-24-2025 LIPID SCREEN LIPID SCREEN [facility] Start: 05-02-2024 Adult BMI Screening Adult BMI Screen ing [facility] Start: 05-02-2024 Tobacco Screening Tobacco Screening [facility] Start: 02-26-2024 Adult BMI Screening [facility] Start: 02-26-2024 Tobacco Screening [facility] Start: 09-14-2023 Depression Screening [facility]ing [facility] Start: 05-09-2023 End: 05-09-2023 Patient encounter procedure 05/09/2023 1:30 PM EST [facility] [address] [place] [address] Ivette Sanchez, POLICE PILOT-MEDICAL ASSISTANT [address] [place] [address] [facility] Start: 05-02-2023 End: 05-02-2024 RFA Lower extremity vessels - left Views W contrast IR angiography extremity left Imaging Routine Morbid obesity ([facility]) ESRD (end stage renal disease) ([facility]) Arteriovenous fistula stenosis, initial encounter ([facility]) Expected: 05/02/2023, Expires: 05/02/2024 [facility] Work Phone: Comment on above: Expected: 05/02/2023 , Expires: 05/02/2024 Start: 03-25-2023 End: 03-25-2023 Patient encounter procedure 03/25/2023 2:10 PM EST Office Visit [facility] [address] [place] [id number] Alvaro Howard MD [address] [place] [address], [address] [place] [address] [facility] Start: 11-09-2022 COVID-19 Vaccine ( season) COVID-19 Vaccine ( season) [facility] Start: 11-09-2022 Influenza vaccination Influenza Vacc ine [facility] Start: 11-09-2021 Influenza vaccination INFLUENZ A (Season Ended) [facility] Start: 08-28-2020 COVID-19 VACCINE (3 - Booster for Pfizer series) COVID-19 VACCINE (3 - Booster for Pfizer series) [facility] Start: 05-25-2017 DIABETES SCREEN DIABETES SCREEN [facility] Start: 10-26-2011 Administration of varicella zoster vaccine Zoster (Shingles) Vaccine (1 of 2) [facility] Start: 10-26-2011 SHINGRIX VACCINE (1 of 2) SHINGRIX VACCINE (1 of 2) [facility] Start: 2006 COLOGUARD (FIT-DNA) COLOGUARD (FIT-D NA) [facility] Start: 2006 Colonoscopy COLONOSCOPY [facility] Start: 2006 COLORECTAL CANCER SCREENING COLORECTAL CANCER SCREENING [facility] Start: [address] COLONOGRAPHY [facility] Start: 2006 FECAL OCCULT BLOOD FECAL OCCULT BLOO D [facility] Start: 2006 SIGMOIDOSCOPY SIGMOIDOSCOPY [facility] Start: 2001 Mammography MAMMOGRAM [facility] Start: 10-26-1991 HPV TESTING HPV TESTING [facility] Start: 1982 PAP TESTING PAP TESTING [facility] Start: 1982 Screening for malign ant neoplasm of cervix Pap Smear [facility] Start: 1980 DTaP,Tdap and Td Vaccines (1 - Tdap) DTaP,Tdap and Td Vaccines (1 - Tdap) [facility] Start: 1980 Urine microalbumin profile DTAP,TDAP,TD (1 - Tdap) [facility] Start: 10-26-1979 Adult BMI Follow Up Plan Adult BMI Follow Up Plan [facility] Start: 10-26-1979 HEPATITIS C SCREENING HEPATITIS C SC REENING [facility] Start: 10-26-1979 HIV SCREENING HIV SCREENING [facility] Start: 1973 Adult depression screening assessment DEPRESSION SCREENING [facility] Immunizations Immunization Date Immunization Notes Care Provider Fa laurentty 11-03-2018 influenza, injectabl e, quadrivalent, preservative free [facility] 11-03-2018 influenza virus vaccine, unspecified formulation [facility] 10-14-2018 influenza, injectabl e, quadrivalent, preservative free [facility] 08-11-2018 influenza, injectabl e, quadrivalent, preservative free [facility] 12-22-2017 pneumococcal polysaccharide vaccine, 23 valent [facility] 11-09-2016 influenza, injectabl e, quadrivalent, preservative free [facility] 12-09-2012 pneumococcal polysaccharide vaccine, 23 valent Quinten Lewis DPM Work Phone: [facility] Payers Date Payer Category Payer Self-pay 2023 Private Health Insurance [facility] [id number] 2023-Present [phone] [address] [address] [place] [address] [id number] 2022 Medicare [employer] MEDICARE UHC MEDICARE ADVANTAGE PPO [id number] 2022-Present [phone] [address] [address] [place] [address] [id number] 2020 [place] [id number] 2020-Present [phone] [address] [place] [address] Medicaid [id number] 2017 [place] [id number] 2017-Present [phone] [address] [place] [address] [id number] 2002 Medicare MEDICARE MEDICAR E A AND B [id number] 2002-Present [phone] [address] [address] [place] [address] Medicare [id number] [id number]. 2.7.3.173845.315 1960 Unknown [id number] 2.16.840.1.487966.3.579. 2.718 1961 Unknown [id number] 2.16.840.1.851932.3.579. 2.177 1961 Unknown [id number] 2.16.840.1.688080.3.579. 2.593 1961 Unknown [id number] 2.16.840.1.798620.3.579. 2.593 1961 Unknown [id number] 2.16.840.1.379481.3.579. 2.593 1961 Unknown [id number] 2.16.840.1.804440.3.579. 2.593 1961 Unknown [id number] 2.16.840.1.650084.3.579. 2.593 1961 Unknown [id number] 2.16.840.1.857008.3.579. 2.593 1961 Unknown [id number] 2.16.840.1.330024.3.579. 2.593 1961 Unknown [id number] 2.16.840.1.329999.3.579. 2.593 1961 Unknown [id number] 2.16.840.1.790288.3.579. 2.593 1961 Unknown [id number] 2.16.840.1.652915.3.579. 2.593 1961 Unknown [id number] 2.16.840.1.143721.3.579. 2.593 1961 Unknown [id number] 2.16.840.1.660182.3.579. 2.1286 1961 Unknown [id number] 2.16.840.1.024260.3.579. 2.1286 1961 Unknown [id number] 2.16.840.1.902079.3.579. 2.1286 1961 Unknown [id number] 2.16.840.1.873798.3.579. 2.1286 1961 Unknown [id number] 2.16.840.1.821112.3.579. 2.1286 1961 Unknown [id number] 2.16.840.1.396030.3.579. 2.1286 1961 Unknown [id number] 2.16.840.1.405827.3.579. 2.1286 1961 Unknown [id number] 2.16.840.1.655468.3.579. 2.1286 1961 Unknown [id number] 2.16.840.1.993150.3.579. 2.1286 1961 Unknown [id number] 2.16.840.1.496395.3.579. 2.1286 1961 Unknown [id number] 2.16.840.1.203350.3.579. 2.1286 1961 Unknown [id number] 2.16.840.1.339855.3.579. 2.1286 1961 Unknown [id number] 2.16.840.1.113240.3.579. 2.1286 1961 Unknown [id number] 2.16.840.1.261361.3.579. 2.1286 1958 Medicaid [id number] 1958 Medicare [id number] 1958 Medicare [id number] Unknown [id number] 2.16.840.1.315597.3.579. 2.531 Social History Date Type Detail Facility Start: 03-27-2013 End: 09-13-2022 Tobacco smoking status PAIS Never smoked tobacco [facility] Start: 03-27-2013 End: 09-13-2022 Tobacco use and exposure Smokeless tobacco non-user [facility] Start: 05-05-2014 Alcohol intake Current drinke r of alcohol (finding) [facility] Start: 03-27-2013 History SDOH Alcohol Comment Occasional [facility] Start: 1960 Sex Assigned At Not on file [facility] Start: 06-27-2020 End: 07-27-2020 Exposure to SARS-CoV-2 (event) Not sure [facility] Start: 03-22-2020 End: 09-13-2022 Sex Assigned At [facility] Start: 02-26-2023 End: 05-02-2023 Alcohol intake Ex-drinker (finding) [facility] Start: 03-22-2020 End: 09-13-2022 History of Social function [facility] How often to you hav e a drink containing alcohol? Monthly or less [facility] How many standard drinks containing alcohol do you have on a typical day? 1 or 2 [facility] How often do you hav e 6 or more drinks on 1 occasion? Never [facility] Adolescent depressio n screening assessment 0 [facility] Medical Equipment Procedure Code Equipment Code Equipment Origin al Text Equipment Identifier Dates Graft Bn Canc 30 ml Allgrft - [id number] Start: 05-20-2014 Comment on above: Description: GRAFT B ONE CANC. Dza-Lx-V-Kind Implant - [id number] Start: 10-01-2013 Comment on above: Description: Glenis underwood Spiral Blade Ksv-Pe-Q-Kind Implant - [id number] Start: 05-20-2014 Comment on above: Description: 4.5 mm VA-LCP plate, C1713 PLATE Ogy-Ra-I-Kind Implant - [id number] Start: 05-20-2014 Comment on above: Description: 5.0 x 3 4mm locking screw, C1713 SCREW Exm-Fm-E-Kind Implant - [id number] Start: 05-20-2014 Comment on above: Description: 5.0 mm x 60mm locking screw, C1713 Dkt-Og-L-Kind Implant - [id number] Start: 05-20-2014 Comment on above: Description: 5.0 mm x 65mm locking screw, C1713 SCREW Pgf-Oj-O-Kind Implant - [id number] Start: 05-20-2014 Comment on above: Description: 5.0 mm x 70 mm locking screw, C1713 SCREW Nail 12mm 380mm Fem Nlex Im - [id number] Start: 10-01-2013 Comment on above: Description: C1713 N AIL 12MM 380MM FEM NLEX IM Cap End 0mm Fem Ext Strdr Rcs - [id number] Start: 10-01-2013 Screw Bn 5mm 44m m Nlex Ti Ft - [id number] Start: 10-01-2013 Screw Bn 5mm 40m m Nlex Ti Ft - [id number] Start: 10-01-2013 Screw Bn 5mm 66m m Nlex Ti Fem - [id number] Start: 10-01-2013 Comment on above: Description: C1713 S CREW BN 5MM 66MM NLEX TI FEM Screw Bn 4.5mm 40mm Lcp Ss - [id number] Start: 05-20-2014 Screw Bn 4.5mm 42mm Lcp Ss - [id number] Start: 05-20-2014 Screw Bn 4.5mm 46mm Lcp Ss - [id number] Start: 05-20-2014 Screw Bn 4.5mm 32mm Lcp Ss - [id number] Start: 05-20-2014 Screw Bn 4.5mm 34mm Lcp Ss - [id number] Start: 05-20-2014 Screw Bn 4.5mm 36mm Lcp Ss - [id number] Start: 05-20-2014 Screw Bn 4.5mm 38mm Lc Dcp Dhs - [id number] Start: 05-20-2014 Set Cth 24cm 14f r 18ga Str Triniflex Splt3 Bsc Intro Ndl Gw Rpl [id number] - [id number](10)MQRN 670, [id number] [facility] Start: 09-07-2022 Clinical Notes 07-28-2020 to 05-02-2023 Krystin Salcedo MD - 05/02/2023 12:00 PM ESTTelephone Encounter - Elba Hernandez - 03/05/2023 3:07 PM ESTTelephone Encounter - Elba Hernandez - 03/05/2023 3:07 PM EST Note Date & Type Note Facility 05-02-2023 History of Presen t illness Narrative Images from the original note were not included. Subjective Patient ID: Shirley Mathews is a 62 y.o. female. Chief [...] of Study: 04/17/23 Ordering Provider: Ziyad Ulrich APRN-MEDICAL ASSISTANT Clinical Indications: ESRD (end stage renal disease) ([facility]) [N18.6 (ICD-10-CM)], A-V fistula ([facility]) [I77.0 (ICD-10-CM)] Interpreting Physicians Performing Staff Roseanne Garcia MD Tech: Roseann Renner RDMS Patient Information Patient Name Shirley Mathews Legal Sex Female Interpretation Summary Left: [...] all orders for this visit: Morbid obesity ([facility]) ESRD (end stage renal disease) ([facility]) Arteriovenous fistula stenosis, initial encounter ([facility]) Plan Plan Will arrange for fistula g [...] week. Patient will need to travel [facility]. Their phone number is [phone]. documented in this encounter [facility] 03-05-2023 Miscellaneous Notes DARY CALLED TO CANCEL SHE DOES NOT WANT TO RESCHEDULE AT THIS TIME documented in this encounter [facility] 03-05-2023 Telephone encounter Note DARY CALLED TO CANCEL SHE DOES NOT WANT TO RESCHEDULE AT THIS TIME [facility] 06-08-2022 Note PROCEDURE: XR SHOULD ER LT 2V or > COMPARISON: None. HISTORY: Tear of left rotator cuff FINDINGS: BONES:No acute fracture or dislocation. Moderate acromioclavicular joint osteoarthropathy. Severe glenohumeral joint osteoarthritis SOFT TISSUES:Negative. No visible soft tissue swelling. EFFUSION:None visible. OTHER: Negative. IMPRESSION: Moderate to severe osteoarthritis Electronically authenticated by: EL SAUNDERS Date: 2022-06-08 07:41 [facility] 06-07-2022 Note CONSULTATION CONSULTATION DATE: 06/07/2022 TO: [...] our patients to inform us about any pwbv-jkd-comgfjl medications or herbal remedies/nutritional supplements/alternative remedies. 2. [...] options with their primary care provider. [facility] 04-12-2022 Note CONSULTATION CONSULTATION DATE: 04/12/2022 [...] 5'6 , weighs 299 pounds per the correction scale yesterday. FOCUSED EXAM - NECK: Range [...] Patient is in agreement to this. 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 That weight was obtained from correction records, as she was recently weighed. GENERAL [...] and the therapist to do at the correction. This includes a menthol heat rub to [...] continues to answer my questions appropriately. [facility] 10-31-2021 Note CONSULTATION CONSULTATION DATE: 10/31/2021 [...] is a poor historian, is in a correction. PHYSICAL EXAM: FOCUSED EVALUATION OF THE LEFT SHOULDER: The patient has fullness and tenderness along the left shoulder. Significant jump response is noted along the AC joint and also along he glenohumeral in flexion and abduction of the left shoulder. Packer Insulation strength is maintained however poor. The patient has cervicothoracic kyphosis. The patient does ambulate with a motorized wheelchair. The patient is accompanied by her caregiver from the correction. IMPRESSION: Current additional working diagnosis on the [...] Kenia Beck but unable to verify) [facility] 10-31-2021 Note CONSULTATION PROCEDURE DATE: 10/31/2021 [...] up in the office as needed. [facility] 10-18-2021 Note CONSULTATION CONSULTATION DATE: 10/18/2021 This is a 60-year-old female with a history of MS who resides in a jail facility. She is following up for a [...] 5'6 , weighs 320 pounds according to correction data. GENERAL APPEARANCE: Pleasant, appropriate, in no [...] agrees with this plan of care. [facility] 07-27-2021 Note CONSULTATION CONSULTATION DATE: 07/27/2021 [...] PLAN: An order was written for the jail facility to apply menthol heat rub twice [...] of care and all questions were answered. [facility] Signed and Approved by: ABHINAV IGNACIO . 07/31/2021 15:07:[address] [facility] 01-24-2021 Evaluation note Encounter Date Diagnosis [...] her ability to ambulate very very poor [employer] Other 06-15-2021 Miscellaneous Notes* Telephone Encounter - Alize (Pss) Taulbee - 08/23/2020 1:19 PM EDT Replied with phone number via my chart. * Telephone Encounter - Shahrzad Cam[facility] - 08/22/2020 2:25 PM EDT Patient calling in regards to the [employer] company that provider advise patient call. States she ordered shoes and its been over a month but lost their number and has no way of getting in touch with them. Patient is requesting a call at [phone] Please advise. [facility] NoteHNO ID: [id number] Author: Quinten Lewis DPM Service: ? Author [...] follow-up as needed pending progress. Quinten Lewis, [facility] noteNo InformationNosaint joseph [facility] XATA Other evaluation note* Diagnosis Chronic kidney disease- Primary Chronic kidney disease, unspecified Anemia Unspecified anemia Multiple sclerosis ([facility]) Multiple sclerosis CKD (chronic kidney disease) Chronic kidney disease, unspecified Morbid obesity ([facility] Primary Morbid obesity ESRD (end stage renal disease) ([facility]) End stage renal disease Arteriovenous fistula stenosis, initial encounter ([facility]) documented in this encounter [facility] 20x200 SystemHistory general Narrative - Reported* Type Description Date Medical History multiple sclerosis Medical History bilateral hearing loss Medical History hypertension Medical History diabetes mallitus Medical History thrombacytopenia Medical History kidney disease Surgical History tubal ligation Surgical History knee replacement 2006 Surgical History Foot Surgery-LEFT 2006,2007,200 9 Hospitalization History See Above [place] [facility] Other InstructionsNot on filedocumented in this encounter [facility] SystemInstructionsNot on filedocumented in this encounter [facility] 20x200 SystemReason for visit Narrativereferral [facility] XATA Other reason for visit NarrativePain Medicine Referral UpdateNosaint joseph hospital west XATA Other Summary Purpose Family History No Family History Records FoundNo Family History Records FoundNo Family History Records FoundNo Family History Records FoundNo Family History Records FoundNo Family History Records FoundNo Family History Records FoundNo Family History Records FoundNo Family History Records Found Advance Directives No Advanced Directives Records FoundDocuments on File Type Date Recorded 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 Advance Directive(s) 12/04/2013 5:55 PM Latest Code Status on File Code Status Date Activated Date Inactivated Comments Full Code 09/13/2022 9:32 AM 09/20/2022 3:29 AM Latest Code Status on File Code Status Date Activated Date Inactivated Comments Full Code 09/13/2022 9:32 AM 09/20/2022 3:29 AM Hospital Course Note [facility] SURGERY Clinical Discharge Summary PERSON INFORMATION Name SHIRLEY MATHEWS Age 57 Years 61 Sex FEMALE Language Occitan PCP Urbano BROWN, Harjit Marital Status Single Med Service Ambulatory Surgery Acct# Arrival 06/03/18 12:10:14 Visit Reason SURGERY - CYSTOSCOPY Acuity LOS 006 05:41 Address: [address] [place] [address] Comment: PROVIDER INFORMATION VITALS INFORMATION Vital Sign [...] 1 Neck pain (M54.2) Referral Organization [facility] urosurgery Referring Provider First Name Kendell Referring Provider Last Name Radha Referring Provider Specialty Neurologica l Surgery Referred Organization [facility] Referred Provider Jr. Galindo William Referred Address [address],[place],[address] Referred Provider Specialty Pain Medicin e Referral Priority Routine Specialty Diagnoses / Procedures Referred By Laurent talavera Referred To Contact Radiology Diagnoses Morbid obesity ([facility]) ESRD (end stage renal disease) ([facility]) Arteriovenous fistula stenosis, initial encounter ([facility]) Procedures IR angiography extremity left Krystin Salcedo MD [address] [place] [address], [phone] [place] [address] Referral ID Status Reason Start Date Expiration Date V isits Requested Visits Authorized [id number] Pending Review 05/02/2023 05/01/2024 1 1 Additional Source Comments INFORMATION SOURCE (unrecogn ized section and content) DATE CREATED AUTHOR 06/26/2018 [facility] DATE CREATED AUTHOR AUTHOR'S ORGANIZ ATION 07/15/2018 [facility] DATE CREATED AUTHOR AUTHOR'S ORGANIZ ATION 06/05/2021 [facility] DATE CREATED AUTHOR AUTHOR'S ORGANIZ ATION 07/07/2021 [facility] DATE CREATED AUTHOR AUTHOR'S ORGANIZ ATION 07/08/2022 [facility] DATE CREATED AUTHOR AUTHOR'S ORGANIZ ATION 04/02/2023 [facility] DATE CREATED AUTHOR AUTHOR'S ORGANIZ ATION 05/12/2023 [facility] DATE CREATED AUTHOR AUTHOR'S ORGANIZ ATION 05/20/2023 [facility] DATE CREATED AUTHOR AUTHOR'S ORGANIZ ATION 06/18/2023 [facility] Source Comments (unrecognize d section and content) In the event this informatio n is protected by the Federal Confidentiality of Alcohol and Drug Abuse Patient Records regulations: The Federal rules restrict any use of the information to criminally investigate or prosecute any alcohol or drug abuse patient.[facility] Reason for Visit (unrecogniz ed section and content) Reason Comments Question Care Teams (unrecognized sec tion and content) Nursing Tech Relationship Specialty Start Date End Date Doug Ornelas MD [address] [place] [address] PCP - General 01/18/04 Christopher Lema Referring Podiatry 03/31/13 Nursing Tech Relationship Specialty Start Date End Date Todd George MD [address] [place] [address] PCP - General Internal Medicine 09/13/22 Nursing Tech Relationship Specialty Start Date End Date Todd George MD [address] [place] [address] PCP - General Internal Medicine 09/13/22 FOR [...] BE BASED ON THE PRIMARY CLINICAL RECORDS. [facility] [employer] [facility]. provides no warranty or guarantee of the accuracy or completeness of information in this document.
--- NOTE | 2023-07-08 13:15 | P.CN_ITS ---
Consult Note: HPI Data of Consult Patient: known to practice within the last 3 years Consult date: 07/08/23 Requesting Physician: Fausto Vasquez MD Primary Care Provider: LIYAH STOLL Consult Narrative Reason for consult: left shoulder and neck pain Narrative: 62yof who presents for in office injection. continues to have left shoulder and neck pain. has tried various modalities in the past, with limited benefit. would like to proceed with left paracervical trigger point injection. cc:: CC: Fausto Vasquez MD Review of Systems ROS Status of ROS 10 or more systems reviewed and unremark able except as noted in history and [facility] History Neck pain ?M54.2 - Cervicalgia (ICD-10) Low back pain ?M54.50 - Low back pain, unspecified (ICD-10) Thrombosis ?I82.90 - Acute embolism and thrombosis of unspecified vein (ICD-10) Multiple sclerosis ?G35 - Multiple sclerosis (ICD-10) Hearing deficit ?H91.90 - Unspecified hearing loss, unspecified ear (ICD-10) Stroke ?I63.9 - Cerebral infarction, unspecified (ICD-10) Acid reflux ?K21.9 - Gastro-esophageal reflux disease without esophagitis (ICD-10) Obesity ?E66.9 - Obesity, unspecified (ICD-10) Diabetes ?E11.9 - Type 2 diabetes mellitus without complications (ICD-10) Kidney failure ?N19 - Unspecified kidney failure (ICD-10) High cholesterol ?E78.00 - Pure hypercholesterolemia, unspecified (ICD-10) Hypertension ?I10 - Essential (primary) hypertension (ICD-10) Surgical History History of total knee arthroplasty ?Z96.659 - Presence of unspecified artificial knee joint (ICD-10) H/O lumbosacral spine surgery ?Z98.890 - Other specified postprocedural states (ICD-10) History of tonsillectomy and adenoidectomy ?Z90.89 - Acquired absence of other organs (ICD-10) H/O knee surgery ?Z98.890 - Other specified postprocedural states (ICD-10) H/O tubal ligation ?Z98.51 - Tubal ligation status (ICD-10) H/O foot surgery ?Z98.890 - Other specified postprocedural states (ICD-10) Hx of cholecystectomy ?Z90.49 - Acquired absence of other specified parts of digestive tract (ICD- 10) H/O gastric bypass ?Z98.84 - Bariatric surgery status (ICD-10) Meds Home Medications and Allergies Home Medications ?Medication ?Instructions ?Recorded ?Confirmed ?Type Lactobacillus acidophilus 250 500 mmu cells PO DAILY 09/14/22 09/25/22 History million cell capsule (Probiotic Acidophilus) acetaminophen 650 mg 650 mg PO .q6hr PRN pain 09/14/22 09/25/22 History tablet,extended release (8 Hour Pain Reliever) amlodipine 5 mg tablet (Norvasc) 5 mg PO DAILY 09/14/22 09/14/22 History ascorbic acid (vitamin C) 500 mg 500 mg PO DAILY 09/14/22 09/25/22 History tablet,extended release (C-500) aspirin 81 mg tablet,delayed 81 mg PO DAILY 09/14/22 09/25/22 History release atorvastatin 80 mg tablet 80 mg PO QPM 09/14/22 09/25/22 History biotin 10 mg tablet 10 mg PO DAILY 09/14/22 09/25/22 History famotidine 20 mg tablet 20 mg PO DAILY 09/14/22 09/25/22 History ferrous sulfate 325 mg (65 mg 325 mg PO DAILY 09/14/22 09/25/22 History iron) tablet (Feosol) folic acid 1 mg tablet 1 mg PO DAILY 09/14/22 09/25/22 History glucosamine sulfate 500 mg tablet 500 mg PO TID 09/14/22 09/14/22 History (Glucosamine) lactulose 10 gram/15 mL oral PO QID 09/14/22 History solution lutein 6 mg capsule 6 mg PO DAILY 09/14/22 09/25/22 History magnesium hydroxide 400 mg/5 mL 30 ml PO DAILY PRN constipation 09/14/22 09/14/22 History oral suspension (Dulcolax (magnesium hydroxide)) melatonin 3 mg capsule 3 mg PO DAILY PRN sleep 09/14/22 09/14/22 History mirabegron 25 mg tablet,extended 25 mg PO DAILY 09/14/22 09/14/22 History release 24 hr (Myrbetriq) modafinil 100 mg tablet 100 mg PO QDAY 09/14/22 09/14/22 History multivitamin 1 tab PO DAILY 09/14/22 09/25/22 History nystatin 100,000 unit/gram topical 1 applic topical BID 09/14/22 09/25/22 History powder omega 2-jhk-dzu-fish oil 1,000 mg 1 cap PO DAILY 09/14/22 09/25/22 History (120 mg-180 mg) capsule (Fish Oil) oxcarbazepine 300 mg tablet 300 mg PO QDAY 09/14/22 09/25/22 History oxycodone 10 mg tablet 10 mg PO QDAY 09/14/22 09/14/22 History polyethylene glycol 3350 17 17 g PO DAILY 09/14/22 09/14/22 History gram/dose oral powder (ClearLax) potassium citrate 10 mEq (1,080 10 meq PO DAILY 09/14/22 09/14/22 History mg) tablet,extended release pregabalin 75 mg capsule (Lyrica) 75 mg PO BID 09/14/22 09/25/22 History sertraline 50 mg tablet (Zoloft) 50 mg PO DAILY 09/14/22 09/25/22 History tizanidine 4 mg capsule (Zanaflex) 4 mg PO Q12H PRN muscle spasticity 09/14/22 09/14/22 History tramadol 50 mg tablet 50 mg PO Q8H PRN pain 09/14/22 09/14/22 History trazodone 50 mg tablet 25 mg PO .hs 09/14/22 09/25/22 History vitamin A-vitamin C-vit E-min 1 tab PO DAILY 09/14/22 09/14/22 History tablet (Ocutabs tablet) vitamin B complex (B 1 tab PO DAILY 09/14/22 09/14/22 History Complex-Vitamin B12 tablet) Allergies Allergy/AdvReac Type Severity Reaction Status Date / Time No Known Drug Allergies Allergy Verified 09/25/22 10:30 Exam Narrative Exam Narrative: Psych-alert and oriented x 3.? Attentive and appropriate, constitutionally normal, displays normal mood and affect per situation.? There are no obvious deficits in memory, reasoning, or intellect.? Skin-no obvious rashes, bruising, or erythema noted to the patient's area of pain. Extremities-upper extremities are warm with minimal edema and palpable pulses. Cervical- tenderness to palpation noted in the cervical spine and paraspinal musculature.?Multiple trigger points expressed on palpation. Pain is elicited with extension, and lateral rotation of the cervical spine.? Range of motion is slightly diminished due to pain. Facet loading maneuvers are positive bilaterally. Coordination remains intact.? Gait remains non-antalgic. Assessment and Plan Assessment and Plan (1) Myofascial pain: Plan 62yof who presents for in office injection. continues to have significant left neck and shoulder pain. given symptoms, prudent to attempt left paracervical trigger point injections. she is in agreement. Procedure: Left paracervical trigger point injection, trapezius, ster nocleidomastoid, splenius capitis Diagnosis: Myofascial pain syndrome, paracervical Medications: Bupivacaine 0.25% 4cc, kenalog 40mg I explained the details of the procedure to the patient including the risks, benefits, and alternatives.? We had an informed discussion.? The patient verbalized understanding and signed the consent form.? All questions were answered appropriately.? A time-out was performed.? After obtaining a comfortable seated position, the skin overlying the left neck and shoulder was prepped with alcohol 3 times. The needle was inserted in a sterile manner through the skin towards the palpated trigger point areas. The contents of the syringe were gently injected without any resistance 1cc at a time into the appropriate trigger point.? The needle was removed and pressure was applied at the injection site to decrease the incidence of ecchymosis and hematoma formation.? A sterile bandage was applied. The patient tolerated the procedure well.
== END 2023-07-08 12:22 | disposition home or self-care (01) ==
LOC: PM 12:21
PROVIDERS: PCP Internal Medicine; Visit Provider Anesthesiology
DX: M79.18 Myalgia, other site (principal)
CPT/HCPCS: 20553

== ENCOUNTER 2023-10-23 07:53 | Outpatient (OUT) | payer MEDICARE, MEDICAID, SELFPAY ==
--- OUTSIDE RECORDS SUMMARY | 2023-10-23 08:00 | XMS_ITS | CCD ---
Author Organization [facility] Care Team Providers Care Food Beverage Attendant Name Role Phone David Gonsales Admitting Unavailable David Gonsales Attending Unavailable Harjit Lopez Primary Care Unavailable DAVID GONSALES Admitting Unavailable DAVID GONSALES Attending Unavailable HARJIT LOPEZ Primary Care Unavailable Doug Ornelas MD Primary Care Provider [phone] Christopher Lema Unavailable Kendell Garcia Unavailable [...] vailable JERMAN, DR PELLETIER Primary Care Unavailable AMTIAS, DR EL Page Consulting Unavailable LAKSHMIPATHY ., NARENDRANATH Consulting Flora vailable LAKSHMIPATHY ., NARENDRANATH Admitting Flora vailable LAKSHMIPATHY ., NARJERARDOATH Attending Flora vailable JERMAN, DR PELLETIER Primary Care Unavailable ZIEBER, DR BANDAR Romero Consulting Unavailable LAKSHMIPATHY ., [...] Todd George MD Primary Care Provider ZIYAD OCHOA Attending Unavailable GEORGE, TODD B Referring Unavailable GEORGE, TODD B Primary Care Unavailable Christina BROWN, Fausto Rosado Attending Unavailable KRYSTIN SALCEDO Attending Unavailable KRYSTIN SALCEDO Referring Unavailable GEORGE, TODD B Primary Care Unavailable ASHLYN BLACKBURN Admitting Unavailable ANDRA ZAMORA Consulting Unavailable AMY YAÑEZ Referring Unavailable GEORGE, TODD B Primary Care Unavailable GEORGE, TODD B Referring Unavailable GEORGE, TODD B Primary Care Unavailable KRYSTIN SALCEDO Referring Unavailable GEORGE, TODD B Primary Care Unavailable KRYSTIN SALCEDO Attending Unavailable GEORGE, TODD B Referring Unavailable GEORGE, TODD B Primary Care Unavailable ADDIS WISE Attending Unavailable GEORGE, TODD B Referring Unavailable GEORGE, TODD B Primary Care Unavailable KRYSTIN SALCEDO Attending Unavailable KRYSTIN SALCEDO Admitting Unavailable KRYSTIN SALCEDO Referring Unavailable GEORGE, TODD B Primary Care Unavailable ANURAG ISABEL Attending Unavailable GEORGE, TODD B Primary Care Unavailable KRYSTIN SALCEDO Attending Unavailable GEORGE, TODD B Referring Unavailable GEORGE, TODD B Primary Care Unavailable KRYSTIN SALCEDO Attending Unavailable GEORGE, TODD B Referring Unavailable GEORGE, TODD B Primary Care Unavailable JERMAN TODD B Referring Unavailable JERMAN TODD B Primary Care Unavailable AssiAbyia Admitting Unavailable Iqra Milesjoseia Attending Unavailable Rosina Fink Attending Unavailab Rosina Figueredo Referring Unavailab Harjit Gonzalez Primary Care Unavailable Rosina Fink Admitting Unavailab kathryn RIVERSHONORIO ELIZONDO Attending Unavailable ANDRE GRAVES N Attending Unavailable GABRIELLE CONTRERAS M Referring Unavailable TODD GEOGRE B Primary Care Unavailable ANDRE GRAVES N Attending Unavailable BENMEGAN JeffriesEN M Referring Unavailable JERMAN TODD B Primary Care Unavailable BENMEGAN JeffriesEN M Referring Unavailable JERMAN TODD B Primary Care Unavailable ANDRE GRAVES N Attending Unavailable MEGAN CONTRERASEN M Referring Unavailable TODD GEORGE B Primary Care Unavailable BRANDON BOB Attending Unavailable TODD GEORGE B Referring Unavailable JERMAN TODD B Primary Care Unavailable ZIYAD OCHOA Referring Unavailable JERMAN TODD B Primary Care Unavailable Allergies Allergy Classification Reported Allergen(s) Allergy Type Date of Onset Reaction(s) Facility (1 source) No Known Medication Allergies; Translations: [No Known Medication Allergies] Propensity to adverse reactions to drug (disorder) [facility] Repository Medications Current Medications Medication Drug Class(es) Dates Sig (Normalized) Sig (Original) A/C/E/zinc ox/cupric ox/lutein (OCULAR VITAMINS ORAL) (1 source) A/C/E/zinc ox/cupric ox/lutein (OCULAR VITAMINS ORAL) Take by mouth. 0 Active acetaminophen 325 mg oral tablet (3 sources) Start: 09-17-2019 take 650 mg by mouth every six hours Acetaminophen Active 650 MG PO Q6H 16 September 17, 2019 12:00am take 2 tablets by mo uth every six hours as needed for pain acetaminophen (TYLENOL) 325 mg tablet Ta ke 2 tablets (650 mg total) by mouth every 6 (six) hours as needed for pain. 0 Active alendronic acid 70 mg oral tablet (2 sources) Bisphosphonate Start: 03-12-2018 take 1 tablet by mouth every week at mealtime Alendronate Active 70 MG PO every week March 12, 2018 1:00am give one tab by mouth every week on saturday 30 minutes before first meal Comment on above: Take 70 mg by mouth once each week. aspirin 81 mg chewable tablet (4 sources) Platelet Aggregation Inhibitor, Nonsteroidal Anti-inflammatory Drug Start: 03-12-2018 take 81 mg by mouth once daily Aspirin Active 81 MG PO Daily March 12, 2018 1:00am take 1 tablet by mouth in the mo rning aspirin 81 mg Take 1 tablet (81 [...] tablet (2 sources) take 1 tablet by attila th in the morning B complex-vitamin C-folic acid (RENAL-LOLIS) 0.8 mg tablet Take 1 tablet by mouth in the morning. 0 Active biotin 1 mg oral tablet (2 sources) take 1 tablet by attila th in the morning biotin 1 mg tablet Take 1 tablet (1 mg total) by mouth in the morning. 0 Active calcitriol 0.78788 mg oral capsule (2 sources) Vitamin D3 [...] with her on dialysis day) 0 Active Calcium Citrate (2 sources) Start: 03-12-2018 take 3 tablets by mo uth once daily Calcium Citrate Active 3 TAB PO Daily March 12, 2018 1:00am take 1 tablet by mouth once jose y calcium citrate 200 mg (950 mg) tab Take 1,900 mg by mouth once daily. 0 Active Comment on above: Take 1,900 mg by attila th once daily. carboxymethylcellulose sodium 10 mg/ml ophthalmic solution (2 [...] 0 Active cholecalciferol 0.025 mg oral tablet (4 sources) Vitamin D Start : 09-19 take 1 tablet by mouth in the morning cholecalciferol (VITAMIN D3) 1,000 units tablet Take 1 tablet (1,000 Units total) by mouth in the morning. 30 tablet 3 09/19/2022 Active Start: 09-12-2019 take 1 tablet by attila th once daily Cholecalciferol (Vitamin D3) (Vitamin D3) 25 mcg (1,000 unit) Tablet Active 25 MCG PO Daily September 12, 2019 12:00am Start: 05-23-2014 take 1 tablet by attila [...] Orally every 4 hrs Active docusate sodium 100 mg oral capsule (1 source) Start: 09-12-19 20 take 1 capsule by mouth once daily Docusate Sodium (Dok) 100 mg Capsule Active 100 MG PO Daily September 12, 2019 12:00am docusate sodium 50 mg / sennosides, halfway 8.6 mg oral tablet (2 sources) Start: 09-20-19 23 take 1 tablet by mouth once as needed sennosides-docusate sodium (SENOKOT-S) 8.6-50 mg Take 1 tablet by mouth every 12 (twelve) hours as needed for constipation. 0 09/19/2022 Active ergocalciferol 1.25 mg oral capsule (1 source) Provitamin D2 Compound Start: 03-12-19 19 take 1 capsule by mouth every week Ergocalciferol (Vitamin D2) (Vitamin D2) 50,000 unit Capsule Active 1 TAB PO every week March 12, 2018 1:00am give one capsule by mouth every week on saturday ferrous sulfate 324 mg delayed release oral tablet (2 sources) Start: 03-12-19 19 take 325 mg by mouth twice daily Ferrous Sulfate Active 325 MG PO Twice daily March 12, 2018 1:00am take 1 tablet by attila th once daily at breakfast Ferrous Sulfate (IRON) 325 mg (65 mg iro n) tablet Take 325 mg by mouth daily with breakfast. 0 Active Comment on above: Take 325 mg by mouth daily with breakfast. furosemide 20 mg oral tablet (5 sources) Loop Diuretic Start: 09-12-2019 take 20 mg by mouth once Furosemide Active 20 MG PO every Saturday, Saturday, and Thursday September 12, 2019 12:00am Start: 01-17-2009 take 1 tablet by attila th every twenty-four hours Lasix 40 MG 1 tablet Orally Once a day for 30 day(s) Jan, Active take 1 tablet by attila th every twenty-four hours Lasix 80 MG 1 tablet Orally Once a day for 30 day(s) Active gabapentin 600 mg oral tablet (2 sources) Anti-epileptic Agent Start: 03-12-2018 take 1200 mg by mouth twice daily Gabapentin Active 1200 MG PO Twice daily March 12, 2018 1:00am take 1 tablet by mouth twice rachel ly gabapentin (NEURONTIN) 600 mg tablet Take 600 mg by mouth twice daily. 0 Active Comment on above: Take 600 mg by mouth twice daily. hydrOXYzine hydrochloride 25 mg oral tablet (2 sources) Antihistamine Start: 9 take 25 mg by mouth every six hours Hydroxyzine Hcl Active 25 MG PO Every 6 hours March 14, 2018 1:00am Start: 03-12-2018 End: 03-14-2018 take 25 mg by mouth three to four times daily Hydroxyzine Hcl Discontinued 25 MG PO 3 to 4 times per day March 12, 2018 1:00am March 14, 2018 12:01pm 5 ml iron sucrose 20 mg/ml injection (2 sources) Parenteral Iron Replacement Start: 08-22-2022 VENOFER 100 mg iron/5 mL injection Infuse 5 mL (100 mg total) into a venous catheter. 0 08/22/2022 Active lactobacillus acidophilus [id number] unt / pectin 100 mg oral tablet (2 sources) take 1 tablet by mouth once daily at breakfast acidophilus-pect in, citrus 25 million cell -100 mg tablet Take 1 tablet by mouth daily with breakfast. 0 Active lactulose 667 mg/ml oral solution (4 sources) Osmotic Laxative Start: 09-17-2019 take 10 g by mouth once daily Lactulose Active 10 GM PO Daily September 17, 2019 12:00am take 1 dose by mouth three times daily lactulose (CEPHULAC) 10 gram packet Take 1 packet (10 g total) by mouth 3 (three) times a day. 0 Active Enulose 10 GM/15 ML Oral for 30 Active lisinopril 10 mg oral tablet (4 sources) Angiotensin Converting Enzyme Inhibitor Start: 03-12-2018 take 5 mg by mouth twice daily Lisinopril Active 5 MG PO Twice daily March 12, 2018 1:00am take 1 tablet by mouth once jose y lisinopril (ZESTRIL, PRINIVIL) 10 mg tablet Take 10 mg by mouth once daily. 0 Active take 1 tablet by attila th every twenty-four hours Lisinopril 20 MG 1 tablet Orally Once a day for 30 day(s) Active Comment on above: Take 10 mg by mouth once daily. loperamide hydrochloride 2 mg oral tablet (1 source) Opioid Agonist Start: 9 Loperamide Active 4 MG PO EVERY 1-3 HOURS March 12, 2018 1:00am Lutein (2 sources) take 1 tablet by mouth in the morning LUTEIN ORAL Take 1 tablet by mouth in the morning. 0 Active magnesium oxide 400 mg oral capsule (1 source) Start: 9 take 400 mg by mouth at bedtime Magnesium Oxide Active 400 MG PO Bedtime March 12, 2018 1:00am melatonin 3 mg oral tablet (2 sources) take 1 tablet by mouth once daily melatonin (CIRCADIN) tablet Take 1 tablet (3 mg total) by mouth nightly. 0 Active metFORMIN hydrochloride 500 mg oral tablet (1 source) Biguanide Start: 9 take 500 mg by mouth twice daily Metformin Active 500 MG PO Twice daily March 12, 2018 1:00am metoprolol tartrate 50 mg oral tablet (2 sources) beta-Adrenergic Jyoti take 1 tablet by mouth every twenty-four hours Metoprolol Tartrate 50 MG 1 tablet Orally ONCE A DAY for 30 day(s) Active midodrine hydrochloride 5 mg oral tablet (2 sources) alpha-Adrenergic Agonist Start: 3 midodrine (PROAMATINE) 5 mg tablet Take 1 tablet (5 mg total) by mouth before breakfast. On dialysis days 1 tab as needed for hypotension PRE dialysis in am 0 10/06/2022 Active modafinil 200 mg oral tablet (5 sources) Sympathomimetic-li ke Agent Start: 9 take 100 mg by mouth once daily Modafinil Active 100 MG PO Daily March 12, 2018 1:00am take 1 tablet by mouth in the mo rning modafiniL (PROVIGIL) 100 mg tablet Take 1 [...] and 1 Application before bedtime. 0 Active Mulberry 0-Otn-Yjy-Fish Oil (Fish Oil) 1,000 mg (120 mg-180 mg) Capsule (1 source) Start: 03-12-19 19 take 2 capsules by mouth once daily Mulberry 0-Fap-Wpa-Fish Oil (Fish Oil) 1,000 mg (120 mg-180 mg) Capsule Active 2 CAP PO Daily March 12, 2018 1:00am omega-3 fatty acids 500 mg capsule (2 sources) take 1 capsule by mouth once daily at bedtime omega-3 fatty acids 500 mg capsule Take 1,500 mg by mouth once daily at bedtime. 0 Active OXcarbazepine 300 mg oral tablet (6 sources) Anti-epileptic Agent Start: 03-12-19 19 take 150 mg by mouth twice daily Oxcarbazepine Active 150 MG PO Twice daily March 12, 2018 1:00am take 1 tablet by attila th in the morning, then take 1 tablet [...] daily. oxyCODONE hydrochloride 5 mg oral capsule (6 sources) Opioid Agonist Start: 04-10-2023 End: 05-10-2023 take 2.5 mg by mouth every eight hours as needed oxyCODONE (OXY-IR) 5 mg capsule Take 2.5 mg by mouth every 8 (eight) hours as needed. Max Daily Amount: 7.5 mg 0 04/10/2023 05/10/2023 Active Start: 03-12-2018 oxyCODONE (HEATHER ICODONE) 5 mg immediate release tablet Start: 03-12-2018 take 1 tablet by attila th once daily Oxycodone Active 10 MG PO Daily with supper March 12, 2018 1:00am give one tab by mouth daily at 1700 Start: 05-23-2014 take 5-10 mg by mout h every three hours as needed oxyCODONE immediate release (PERCOLONE) 5 mg immediate release tablet Take 1-2 tablets by mouth every 3 hours as needed. 0 05/23/2014 Active Comment on above: Take 1-2 tablets by mouth every 3 hours as needed. pantoprazole 40 mg delayed release oral tablet (1 source) Proton Pump Inhibitor Start: 0 take 40 mg by mouth at bedtime Pantoprazole Active 40 MG PO Bedtime September 12, 2019 12:00am pregabalin 75 mg oral capsule (4 sources) [...] (1 source) Phosphate Binder Start: 02-22-2023 sevelamer (RENVELA) 800 mg tablet sodium zirconium cyclosilicate 94567 mg powder for oral suspension (1 source) sodium zirconium cyclosilicate (LOKELMA) 10 gram packet Take 10 g by mouth in the morning. 0 Active tiZANidine 4 mg oral tablet (2 sources) Central alpha-2 Adrenergic Agonist Start: 03-12-2018 take 4 mg by mouth once daily Tizanidine Active 4 MG PO Daily March 12, 2018 1:00am Comment on above: Take 4 mg by mouth w ith meals and at bedtime. traMADol hydrochloride 50 mg oral tablet (4 sources) Opioid Agonist Start: 03-12-2018 take 50 mg by mouth three times daily Tramadol Active 50 MG PO Three times daily March 12, 2018 1:00am take 1 tablet by attila th every eight hours as needed traMADol (ULTRAM) 50 mg tablet Take 50 m g by mouth every 8 hours as needed. 0 Active Comment on above: Take 50 mg by mouth every 8 hours as needed. traZODone hydrochloride 50 mg oral tablet (4 sources) Serotonin Reuptake Inhibitor Start: 10-03-2022 traZODone (DESYREL) 50 mg tablet traZODone HCl 50 MG Oral for 30 Active Vit C-Vit O-Jtfkuu-Rkc-Om-3 (Ocuvite) 638-25-2-150 ns-lesd-mh-mg Capsule (1 source) Start: 03-12-2018 take 1 capsule by mouth once daily Vit C-Vit I-Wbpvcc-Mwd-Om-3 (Ocuvite) 277-02-8-150 bz-sdqc-kc-mg Capsule Active 1 CAP PO Daily March 12, 2018 1:00am Vitamin B Complex (1 source) Start: 03-12-2018 take 1 tablet by mouth once daily Vitamin B Complex Active 1 TAB PO Daily March 12, 2018 1:00am Completed/Discontinued Medications Medication Drug Class(es) Dates Sig (Normalized) Sig (Original) ascorbic acid 500 mg extended release oral capsule (2 sources) Vitamin C Start: 03-12-2018 End: 09-12-2019 take 1 capsule by mouth once daily Ascorbic Acid (Vitamin C) (Vitamin C) 500 mg Capsule, Extended Release Discontinued 500 MG PO Daily March 12, 2018 1:00am September 12, 2019 2:20am take 1 tablet by mouth once jose y ascorbic acid (VITAMIN C) 500 mg tablet Take 500 mg by mouth once daily. 0 Active Comment on above: Take 500 mg by mouth once daily. atorvastatin 80 mg oral tablet (4 sources) HMG-CoA Reductase Inhibitor Start: 09-17-19 atorvastatin (LIPITOR) 80 mg tablet cephalexin 500 mg oral capsule (1 source) Cephalosporin Antibacterial Start: 09-17-19 End: 07-23-19 take 1 capsule by mouth twice daily Cephalexin (Keflex) 500 mg capsule Discontinued 500 MG PO Twice daily 18 September 17, 2019 12:00am July 22, 2020 12:11pm 12 hr dalfampridine 10 mg extended release oral tablet (1 source) Potassium Channel Jyoti take 1 tablet by mouth twice daily Dalfampridine (AMPYRA) 10 mg Tb12 Take 1 tablet by mouth twice daily. 0 Active Comment on above: Take 1 tablet by [facility] twice daily. famotidine 20 mg oral tablet (3 sources) Histamine-2 Receptor Antagonist Start: 03-12-19 End: 09-12-19 take 1 tablet by mouth once daily at bedtime Famotidine (Pepcid) 20 mg Tablet Discontinued 20 MG PO Daily at bedtime March 12, 2018 1:00am September 12, 2019 2:20am fingolimod 0.5 mg oral capsule (1 source) Sphingosine 1-phosphate Receptor Modulator take 1 capsule by mouth once daily Fingolimod (GILENYA) 0.5 mg cap Take 1 capsule by mouth once daily. 0 Active Comment on above: Take 1 capsule by mo [facility] once daily. Fish Oil-Mulberry-3 Fatty Acids (FISH OIL) 340-1,000 mg cap (1 source) Fish Oil-Mulberry-3 Fatty Acids (FISH OIL) 340-1,000 mg cap Take 2 capsules by mouth. 0 Active Comment on above: Take 2 capsules by m out. FOLIC ACID/MV,FE,OTHER MIN/LUT (CERTAVITE WITH LUTEIN ORAL) (1 source) FOLIC ACID/MV,FE,OTHER MIN/LUT (CERTAVITE WITH LUTEIN ORAL) Take by mouth. 0 Active Comment on above: Take by mouth. multivitamin with minerals tablet (1 source) take 1 tablet by mouth once daily multivitamin with minerals tablet Take 1 tablet by mouth once daily. 0 Active Comment on above: Take 1 tablet by attila th once daily. Gstruqvgglww-Fzgq-Qac ic Acid (Certavite-Antioxidan t) 18-400 mg-mcg Tablet (1 source) Start: 03-12-19 End: 09-12-19 take 1 tablet by mouth once daily Ycgzqyvnnevh-Khln-Fs lic Acid (Certavite-Antioxida nt) 18-400 mg-mcg Tablet Discontinued 1 TAB PO Daily March 12, 2018 1:00am September 12, 2019 2:20am omeprazole 20 mg delayed release oral capsule (1 source) Proton Pump Inhibitor take 1 capsule by mouth twice daily omeprazole 20 mg capsule Take 20 mg by mouth twice daily. 0 Active Comment on above: Take 20 mg by mouth twice daily. polyethylene glycol 3350 79307 mg powder for oral solution (4 sources) Osmotic Laxative Start: 05-27-19 15 take 1 dose by mouth once daily [...] by attila th once daily as needed. Problems Active Problems Problem Classification Problem Date Documented Da te Episodic/Chronic Acute cerebrovascular disease (1 source) Cerebrovascular accident; Translations: [Cerebral infarction, unspecified] 09-12-2019 Chronic Aortic; peripheral; and visceral artery aneurysms (1 source) Aneurysm of unspecified site; Translations: [Aneurysm of unspecified site] Onset: 05-30-2023 Chronic Chronic kidney disease (13 sources) Chronic kidney disease stage 4; Translations: [...] diseases classified elsewhere] Onset: 08-30-2022 09-13-2022 Chronic Deficiency and other anemia (1 source) Anemia in other chronic diseases classified elsewhere; Translations: [Anemia in other chronic diseases classified elsewhere] Onset: 09-13-2022 Chronic Deficiency and other anemia (1 source) Anemia, unspecified; Translations: [Anemia, unspecified] Onset: 10-21-2023 Episodic Diabetes mellitus without complication (1 source) Diabetes mellitus; Translations: [Type 2 diabetes mellitus without complications] 09-12-2019 Chronic Diseases of white blood cells (2 sources) Leukocytosis; Translations: [Elevated white blood cell count, unspecified] Onset: 09-13-2022 09-13-2022 Chronic Essential hypertension (3 sources) Essential hypertension; Translations: [HTN [Hypertension]] 09-12-2019 Chronic Fever of unknown origin (1 source) Fever; Translations: [Fever, unspecified] 09-14-2019 Episodic Genitourinary symptoms and ill-defined conditions (1 source) Urine culture: organisms - finding; Translations: [Other abnormal findings on microbiological examination of urine] 09-14-2019 Episodic Multiple sclerosis (11 sources) Multiple sclerosis; Translations: [Multiple sclerosis] Onset: [...] Onset: 04-01-2023 Chronic Other connective tissue disease (3 sources) History of total knee arthroplasty; Translations: [Presence of right artificial knee joint] 09-14-2019 Chronic Other connective tissue disease (1 source) [...] IN LEFT SHOULDER] Onset: 07-04-2022 Episodic Other non-traumatic joint disorders (1 source) Pain in right knee; Translations: [Right knee pain] 09-16-2019 Episodic Other nutritional; endocrine; and metabolic disorders (6 sources) Morbid obesity; Translations: [Morbid (severe) obesity due to excess calories] Onset: 09-13-2022 09-13-2022 Chronic Other nutritional; endocrine; and metabolic disorders (2 sources) Morbid (severe) obesity due to excess calories; Translations: [Morbid (severe) obesity due to excess calories] Onset: 01-24-2021 Resolved: 01-24-2021 Chronic Other screening for suspected conditions (not mental disorders or infectious disease) (2 sources) Encounter for screening mammogram for malignant neoplasm of breast; Translations: [Patient encounter status] Onset: 05-14-2022 03-14-2018 Episodic Residual codes; unclassified (1 source) Family history of malignant neoplasm of breast; Translations: [FAMILY HX MALIG NEOPLASM OF BREAST] Onset: 05-14-2022 Episodic Residual codes; unclassified (1 source) Family history of malignant neoplasm of trachea, bronchus and lung; Translations: [FAM HX MALPAZ NEOPLSM TRACH BRON LNG] Onset: 05-14-2022 Episodic Residual codes; unclassified (1 source) Family history of malignant neoplasm of other organs or systems; Translations: [FAM HX MALIG NEOPLASM OTH ORGN/SYS] Onset: 05-14-2022 Episodic Skin and subcutaneous tissue infections (1 source) Cellulitis; Translations: [Cellulitis, unspecified] 09-14-2019 Episodic Spondylosis; intervertebral disc disorders; other back [...] Onset: 02-25-2023 Episodic Phlebitis; thrombophlebitis and thromboembolism (4 sources) H/O: Deep vein thrombosis; Translations: [Personal [...] Test Name Value Interpretation Reference Range Facility URINALYSISon 07-12-2023 Bilirubin Ql (U) Negative Normal NEG [facility] Comment on above: Performed By: #### U A #### [facility] ([id number]) [address] [place] [address] [id number] BLOOD/HGB MODERATE Abnormal NEG [facility] Comment on above: Performed By: #### U A #### [facility] ([id number]) [address] [place] [address] [id number] Color (U) YELLOW Normal YELLOW [facility] Comment on above: Performed By: #### U A #### [facility] ([id number]) [address] [place] [address] 39518 Glucose Ql (U) Negative Normal NEG [facility] Comment on above: Performed By: #### U A #### [facility] ([id number]) [address] [place] [address] 11019 Ketones Ql (U) Negative Normal NEG [facility] Comment on above: Performed By: #### U A #### [facility] ([id number]) [address] [place] [address] 03158 Leukocyte esterase Test strip Ql (U) MODERATE Abnormal NEG [facility] Comment on above: Performed By: #### U A #### [facility] ([id number]) [address] [place] [address] 43723 Nitrite Ql (U) Negative Normal NEG [facility] Comment on above: Performed By: #### U A #### [facility] ([id number]) [address] [place] [address] 89145 pH (U) 5.5 [pH] Normal 5.0-8.5 [facility] Comment on above: Performed By: #### U A #### [facility] ([id number]) [address] [place] [address] 31656 Protein Ql (U) 100 mg/dL Abnormal NEG [facility] Comment on above: Performed By: #### U A #### [facility] ([id number]) [address] [place] [address] 49946 R.B.CELLS 10 /hpf High 0-5 [facility] Comment on above: Performed By: #### U A #### [facility] ([id number]) [address] [place] [address] 09689 Specific gravity (U) [Rel density] 1.015 Normal 1.003-1.035 [facility] Comment on above: Performed By: #### U A #### [facility] ([id number]) [address] [place] [address] 22101 SQUAMOUS EPITHELIUM 10 /hpf High 0-[address] [facility] Comment on above: Performed By: #### U A #### [facility] ([id number]) [address] [place] [address] 20737 TURBIDITY CLOUDY Abnormal CLEAR [facility] Comment on above: Performed By: #### U A #### [facility] ([id number]) [address] [place] [address] Urobilinogen Qn (U) 0.2 {Victor Manuel'U}/dL Normal <1.1 [facility] Comment on above: Performed By: #### U A #### [facility] ([id number]) [address] [place] [address] 30696 W.B.CELLS 60 /hpf High 0-5 [facility] [facility] Comment on above: Performed By: #### U A #### [facility] ([id number]) [address] [place] [id number] URINE CULTUREon 07-12-2023 Bacteria identified Cx Nom (U) CULTURE RESULTS MULTIPLE SPECIES PRESENT. PROBABLE COLLECTION CONTAMINATION. SUGGEST REPEAT SPECIMEN. MIXED GRAM POSITIVE AND GRAM NEGATIVE ORGANISMS Normal [facility] Comment on above: Performed By: #### 6 30-4 #### [facility] ([id number]) [address] [place] [address] BASIC METABOLIC PANLon 05-31 Anion gap [Moles/Vol] 10 mmol/L Normal 5-15 [facility] Comment on above: Performed By: #### C BCA, BMP #### [facility] ([id number]) [address] [place] [address] Calcium [Mass/Vol] 7.9 mg/dL Low 8.5-10.5 [facility] Comment on above: Performed By: #### C BCA, BMP #### [facility] ([id number]) [address] [place] [address] Chloride [Moles/Vol] 98 mmol/L Normal 98-109 [facility] Comment on above: Performed By: #### C BCA, BMP #### [facility] ([id number]) [address] [place] [address] CO2 [Moles/Vol] 29 mmol/L Normal 22-32 [facility] Comment on above: Performed By: #### C BCA, BMP #### [facility] ([id number]) [address], [address] [place] [address] Creatinine [Mass/Vol] 3.70 mg/dL High 0.40-1.00 [facility] Comment on above: Result Comment: METH OD TRACEABLE TO IDMS STANDARD Performed By: #### C BCA, BMP #### [facility] ([id number]) [address], [address] [place] [address] GFR/1.73 sq M.predicted among non-blacks MDRD (S/P/Bld) [Vol rate/Area] 13 mL/min/{1.73_m2} Low >59 [facility] Comment on above: Result Comment: Reported eGFR is based on the CKD-EPI 2020 equation that does not use a race coefficient. Performed By: #### C BCA, BMP #### [facility] ([id number]) [address], [address] [place] [address] Glucose [Mass/Vol] 93 mg/dL Normal 65-99 [facility] Comment on above: Performed By: #### C BCA, BMP #### [facility] ([id number]) [address], [address] [place] [address] Potassium [Moles/Vol] 3.9 mmol/L Normal 3.5-5.0 [facility] Comment on above: Performed By: #### C BCA, BMP #### [facility] ([id number]) [address], [address] [place] [address] Sodium [Moles/Vol] 137 mmol/L Normal 134-146 [facility] Comment on above: Performed By: #### C BCA, BMP #### [facility] ([id number]) [address], [address] [place] [address] Urea nitrogen [Mass/Vol] 26 mg/dL Normal 5-27 [facility] Comment on above: Performed By: #### C BCA, BMP #### [facility] ([id number]) [address] [place] [address] CBC AND AUTO DIFFon 06-01-19 ABSOLUTE BASOPHIL 0.0 X10E9/L Normal 0.0-0.2 [facility] Comment on above: Performed By: #### C LUIS, BMP #### [facility] ([id number]) [address] [place] [address] ABSOLUTE NEUTROPHIL 4.8 X10E9/L Normal 1.5-6.6 [facility] Comment on above: Performed By: #### C LUIS, BMP #### [facility] ([id number]) [address] [place] [address] Basophils/100 WBC (Bld) 0.3 % Normal [facility] Comment on above: Performed By: #### C LUIS, BMP #### [facility] ([id number]) [address] [place] [address] Eosinophils (Bld) [#/Vol] 0.5 10*3/uL High 0.0-0.4 [facility] Comment on above: Performed By: #### C LUIS, BMP #### [facility] ([id number]) [address] [place] [address] Eosinophils/100 WBC (Bld) 6.1 % Normal [facility] Comment on above: Performed By: #### C BCA, BMP #### [facility] ([id number]) [address] [place] [address] Erythrocyte distribution width (RBC) [Ratio] 19.2 % High 11.5-15.0 [facility] Comment on above: Performed By: #### C BCA, BMP #### [facility] ([id number]) [address] [place] [address] Hematocrit (Bld) [Volume fraction] 25.0 % Low 35-47 [facility] Comment on above: Performed By: #### C LUIS, BMP #### [facility] ([id number]) [address], [facility] [address] [place] [address] Hemoglobin (Bld) [Mass/Vol] 8.6 g/dL Low 11.7-15.5 [facility] Comment on above: Performed By: #### C LUIS, BMP #### [facility] ([id number]) [address] [address] Lymphocytes (Bld) [#/Vol] 1.6 10*3/uL Normal 1.0-3.5 [facility] Comment on above: Performed By: #### C LUIS, BMP #### [facility] ([id number]) [address] [address] [place] [address] Lymphocytes/100 WBC (Bld) 20.1 % Normal [facility] Comment on above: Performed By: #### C LUIS, BMP #### [facility] ([id number]) [address] [facility] [address] [place] [address] MCH (RBC) [Entitic mass] 31.8 pg Normal 27-34 [facility] Comment on above: Performed By: #### C LUIS, BMP #### [facility] ([id number]) [address] [address] [place] [address] MCHC (RBC) [Mass/Vol] 34.5 g/dL Normal 32-36 [facility] Comment on above: Performed By: #### C BCA, BMP #### [facility] ([id number]) [address] [address] [place] [address] MCV (RBC) [Entitic vol] 92 fL Normal 80-100 [facility] Comment on above: Performed By: #### C BCA, BMP #### [facility] ([id number]) [address] [place] [address] Monocytes (Bld) [#/Vol] 1.0 10*3/uL High 0-0.9 [facility] Comment on above: Performed By: #### C BCA, BMP #### [facility] ([id number]) [address] [place] [address] Monocytes/100 WBC (Bld) 12.4 % Normal [facility] Comment on above: Performed By: #### C LUIS, BMP #### [facility] ([id number]) [address] [place] [address] Neutrophils/100 WBC (Bld) 61.1 % Normal [facility] Comment on above: Performed By: #### C LUIS, BMP #### [facility] ([id number]) [address] [place] [address] Platelet mean volume (Bld) [Entitic vol] 8.5 fL Normal 7-12 [facility] Comment on above: Performed By: #### C LUIS, BMP #### [facility] ([id number]) [address] [place] [address] Platelets (Bld) [#/Vol] 150 10*3/uL Normal 150-450 [facility] Comment on above: Performed By: #### C LUIS, BMP #### [facility] ([id number]) [address] [place] [address] RBC COUNT 2.72 X10E12/L Low 3.80-5.20 [facility] Comment on above: Performed By: #### C BCA, BMP #### [facility] ([id number]) [address] [place] [address] WBC (Bld) [#/Vol] 7.9 10*3/uL Normal 4.0-11.0 [facility] Comment on above: Performed By: #### C BCA, BMP #### [facility] ([id number]) [address] [place] [address] BASIC METABOLIC PANLon 05-30 Anion gap [Moles/Vol] 10 mmol/L Normal 5-15 [facility] Comment on above: Performed By: #### B MP, CBC #### [facility] ([id number]) [address] [place] [address] Calcium [Mass/Vol] 7.6 mg/dL Low 8.5-10.5 [facility] Comment on above: Performed By: #### B MP, CBC #### [facility] ([id number]) [address], [address] [place] [address] Chloride [Moles/Vol] 95 mmol/L Low 98-109 [facility] Comment on above: Performed By: #### B MP, CBC #### [facility] ([id number]) [address] [place] [address] CO2 [Moles/Vol] 29 mmol/L Normal 22-32 [facility] Comment on above: Performed By: #### B MP, CBC #### [facility] ([id number]) [address] [place] [address] Creatinine [Mass/Vol] 5.01 mg/dL High 0.40-1.00 [facility] Comment on above: Result Comment: METH OD TRACEABLE TO IDMS STANDARD Performed By: #### B MP, CBC #### [facility] ([id number]) [address] [place] [address] GFR/1.73 sq M.predicted among non-blacks MDRD (S/P/Bld) [Vol rate/Area] 9 mL/min/{1.73_m2} Low >59 [facility] Comment on above: Result Comment: Reported eGFR is based on the CKD-EPI 2020 equation that does not use a race coefficient. Performed By: #### B MP, CBC #### [facility] ([id number]) [address] [place] [address] Glucose [Mass/Vol] 95 mg/dL Normal 65-99 [facility] Comment on above: Performed By: #### B MP, CBC #### [facility] ([id number]) [address] [place] [address] Potassium [Moles/Vol] 3.7 mmol/L Normal 3.5-5.0 [facility] Comment on above: Performed By: #### B JO ANN, CBC #### [facility] ([id number]) [address] [place] [address] Sodium [Moles/Vol] 134 mmol/L Normal 134-146 [facility] Comment on above: Performed By: #### B JO ANN, CBC #### [facility] ([id number]) [address] [place] [address] Urea nitrogen [Mass/Vol] 40 mg/dL High 5-27 [facility] Comment on above: Performed By: #### B JO ANN, CBC #### [facility] ([id number]) [address] [address] [place] [address] COMPLETE BLOOD COUNTon 05-30 Erythrocyte distribution width (RBC) [Ratio] 17.7 % High 11.5-15.0 [facility] Comment on above: Performed By: #### B MP, CBC #### [facility] ([id number]) [address] [address] [place] [address] Hematocrit (Bld) [Volume fraction] 16.9 % Low 35-47 [facility] Comment on above: Performed By: #### B MP, CBC #### [facility] ([id number]) [address] [place] [address] Hemoglobin (Bld) [Mass/Vol] 5.8 g/dL Critically low 11.7-15.5 [facility] Comment on above: Performed By: #### B MP, CBC #### [facility] ([id number]) [address] [place] [address] MCH (RBC) [Entitic mass] 33.5 pg Normal 27-34 [facility] Comment on above: Performed By: #### B MP, CBC #### [facility] ([id number]) [address] [place] [address] MCHC (RBC) [Mass/Vol] 34.7 g/dL Normal 32-36 [facility] Comment on above: Performed By: #### B MP, CBC #### [facility] ([id number]) [address] [place] [address] MCV (RBC) [Entitic vol] 97 fL Normal 80-100 [facility] Comment on above: Performed By: #### B MP, CBC #### [facility] ([id number]) [address] [place] [address] Platelet mean volume (Bld) [Entitic vol] 8.8 fL Normal 7-12 [facility] Comment on above: Performed By: #### B MP, CBC #### [facility] ([id number]) [address] [place] [address] Platelets (Bld) [#/Vol] 136 10*3/uL Low 150-450 [facility] Comment on above: Performed By: #### B MP, CBC #### [facility] ([id number]) [address] [place] [address] RBC COUNT 1.75 X10E12/L Low 3.80-5.20 [facility] Comment on above: Performed By: #### B MP, CBC #### [facility] ([id number]) [address] [place] [address] WBC (Bld) [#/Vol] 7.1 10*3/uL Normal 4.0-11.0 [facility] Comment on above: Performed By: #### B MP, CBC #### [facility] ([id number]) [address] [place] [address] IR ANGIO EXTREMITY LTon 03-2 IR ANGIO [...] total sedation time of 180 minutes of [id number] moderate sedation was provided by the same personnel. Following the procedure, the patient was recovered according to the moderate sedation policy. ANESTHESIA: 10 mL of 1% lidocaine were used for skin and subcutaneous tissue local anesthesia. TIME OUT: [place] Protocol Time Out Verification performed. PROCEDURE: Automatic [...] the wire and placed a short 5 Croatian sheath. Contrast was injected, refluxing downstream and [...] across the stenosis and dilated. A 4 Croatian catheter was advanced through the sheath over [...] raise suspicion (more content not included)... Normal [facility] POTASSIUMon 02-25-2023 Potassium [Moles/Vol] 5.4 mmol/L High 3.5-5.0 [facility] Comment on above: Performed By: #### 2 823-3 #### [facility] ([id number]) [address] [place] [address] MRI SHOULDER LT WO CONon MRI SHOULDER [...] HYALINE CARTILAGE: Complete loss of cartilage with jeat-ed-lpme articulation between the humeral head and glenoid, [...] by: BANDAR SHOOK Date: 2022-07-05 07:38 Normal [facility] MG MAMM SCREEN SAMAN W CADon 0 05-10-2022 MG MAMM SCREEN SAMAN W CAD Patient: DONNA MATHEWS Exam Date: 05/10/2022 : 1960 Gender:F Ordering : [employer] Admission #: [id number] Family : Order #: [id number] CLICK HERE TO VIEW EXAM RADIOLOGY REPORT [...] rectal cancer at age 53. LOCATION: [facility] BREAST COMPOSITION: Heterogeneously dense,which may obscure [...] Saunders MD on 05/11/2022 at 12:[address] [facility] XR DEXA BONE DENSITYon 05-10 XR [...] by: EL SAUNDERS Date: 2022-05-10 16:[address] [facility] MRI BRAIN WO W CONon 023 [...] BANDAR SHOOK Date: 2022-04-13 07:[address] [facility] BUNon 04-12-2022 Urea nitrogen [Mass/Vol] 37.0 mg/dL Critically high 7.0-18.0 [facility] Comment on above: Performed By: #### C KRIS, BUN #### [facility] [address] [address] [address] Ellen Layne CREATININEon 04-12-2022 Creatinine [Mass/Vol] 1.79 mg/dL Critically high 0.55-1.02 [facility] Comment on above: Performed By: #### C KRIS, BUN #### [facility] [address] [place], [place] [address] Dr. Ellen Layne EGFR-AF UGANDAN 35 mL/min/1.73m2 Critically low >=[address] [facility] Comment on above: Performed By: #### C KRIS, BUN #### [facility] [address] [place], [place] [address] Dr. Ellen Layne EGFR-NON AF UGANDAN 29 mL/min/1.73m2 Critically low >=60 [facility] Comment on above: Performed By: #### C KRIS, BUN #### [facility] [address] [place], [place] [address] Dr. Ellen Layne Gastroenterology Office/Clin ic Noteon 05-18-2021 Gastroenterology Office/Clinic Note Chief Complaint ref by [facility]- abnormal labs HPI Staff This is a 60 year old female who presents today for a referral by [facility] for complaints of abnormal renal labs. History of Present Illness The patient is a longterm resident and was referred to me, but [...] I advised the patient to call the longterm and clarify why she was referred. 2. Screen for colon cancer (Z12.11: Encounter for screening for malignant neoplasm of colon) Documentation services were performed after patient or guardian consented to allow [employer] to record this visit. ANABELLE site specialist and provider reviewed before signing. ANABELLE: [...] mg= 1 tab(s), Oral, Daily Vitamin D, [address] International_Unit, Oral, qWeek Zanaflex 4 mg Tab, 4 mg= 1 tab(s), Oral, Daily Zinbryta, 150 mg, SubCutaneous, qMonth Allergies No Known Allergies Social History Alcohol - Denies Alcohol Use, 10/19/2010 Past, 10/19/2010 Substance Abuse - Denies Substance Abuse, (more content not included)... Normal [facility] Comment on above: Result Comment: Elec tronically Signed By: Yamil DC MD\.br\Date and Time Signed: 05/18/21 13:10 EST\.br\Electronically Co-Signed By: Gertrude Zepeda\.br\Date and Time Co-Signed: 05/15/21 14:41 EST Ambulatory Visit Summaryon 0 05-15-2021 Ambulatory Visit Summary DONNA MATHEWS Nelly :1960 Visit Date:05/15/2021 Ambulatory Visit Instructions Your Diagnosis Hx of gastric bypass Screen for colon cancer Your Care Team Attending Physician - Yamil DC MD Primary Care Physician - Doug Ornelas MD [...] no longer receiving treatment for. DVT Osteopenia Normal [facility] 08-22-2020 [facility] Telephone (ROSANNE) DONNA MATHEWS ([id number]) 1960 F Date Time Provider Department 08/22/20 UQINTEN LEWIS During your visit today, we recorded the following information about you: Shahrzad Hannah Pss 08/22/2020 2:27 PM Signed Patient calling in regards to the [employer] that provider advise patient call. States she ordered shoes and its been over a month but lost their number and has no way of getting in touch with them. Patient is requesting a call at [phone] Please advise. Alize Patton 08/23/2020 1:19 PM Signed Replied with phone number via my chart. Allergies As of Date: 08/22/2020 (No Known Allergies) Date Reviewed: 07/27/2020 Reviewed by: Alize ([facility]) Abdi - Fully Assessed Reason for Visit: [...] LUTEIN ORAL) Take by mouth. - Fish Oil-Mulberry-3 Fatty Acids (FISH OIL) 340-1,000 mg cap [...] Encounter Status:Closed by SHAHRZAD DONIS on 07/04/21 [facility] CNOVon 07-27-2020 CNOV Office Visit (LOORRM ) DONNA MATHEWS ([id number]) 1960 F Date Time Provider Department 07/27/20 [...] Date Reviewed: 07/27/2020 Reviewed by: Alize [facility] - Fully Assessed Reason for Visit: [...] Encounter Status:Closed by QUINTEN LEWIS on 07/28/20 [facility] C Urineon 06-06-2018 C Urine urine taken from cystoscope intraop for culture >100,000 cfu/ml Escherichia coli and 40,000 cfu/ml Enterococcus faecalis ORGANISM EC [employer] --- SUSCEPTIBILITY -- ORGANISM ID: 1 ANTIBIOTIC INTERPRETATION EVAN STATUS ORGANISM ECEC Amik S <=16 Verified Amox/Cla S <=8/4 Verified Amp R >16 Verified Amp/Sul I 16 Verified Cefaz S <=8 Verified Cefep S [...] > Verified Vanc S 1 Verified Normal [facility] Comment on above: Performed By: #### [id number] #### [facility] (DEFAULT) [address] [place] [address] Coding Summaryon 06-05-2018 Coding Summary CODING DATE: 06/05/2018 [facility] STATUS: Home PAYOR: Medicare MC APC DESCRIPTION 5372 Level 2 Urology and Related Services ADMIT DX: REASON FOR VISIT DX: R32 Unspecified urinary incontinence FINAL DX: PRINCIPAL: R32 Unspecified urinary incontinence SECONDARY: R93.41 Abnormal radiologic findings on diagnostic imaging of renal pelvis, ureter, or bladder G35 Multiple sclerosis N32.89 Other specified disorders of bladder PYMT PROC APC STAT DESCRIPTION DOCTOR NAME DATE 56765 5372 T Cystourethroscopy David Gonsales MD 06/03/2018 (separate procedure) NOTE: The code number assigned matches the documented diagnosis and / or procedure in the patient's chart. However, the narrative phrase printed from the coding software may appear abbreviated, or result in slightly different terminology. Coded By: Jessica Valiente Date Saved: 06/05/2018 07:20 am Normal [facility] History and Physicalon 06-05 History and Physical [id number]#1.0 [facility] Consent Formson 06-04-2018 Consent Forms [id number]#1.00 [facility] Outside Recordson 06-04-2018 Outside Records [id number]#1.00 [facility] Provider Orderson 06-04-2018 Protein mass conc [id number]#1.00 [facility] Inpatient Patient Summaryon 06-03-2018 Inpatient Patient Summary [facility] [address] [place] [address] Patient Discharge Instructions Name: DONNA MATHEWS : 62 Patient Address: [address] [place] [address] Primary Care Provider: Name: Harjit Lopez MD After you are discharged if you find you have any questions, please, call [phone] ext [phone] to speak to a nurse. Discharge Diagnosis: [...] business decisions or sign any legal documents [facility] would like to thank you for allowing us to assist you with your healthcare needs. The following includes patient education materials and information regarding your injury/illness. DONNA MATHEWS has been given the following list of follow-up instructions, prescriptions, and patient education materials: Follow-up Instructions With: Address: When: David Gonsales [address] [facility], [address] [place], [place] [address] Business (1) With: Address: When: Harjit Lopez [address] [place] [address] Business (1) Medications During the course of [...] for Disease Control and Prevention November 2013 [facility] MAGR Intraoperative Recordon 06-03-2018 [facility] Intraoperative Record MAGR Intra-Op Record Summary Primary Physician: David Gonsales MD Finalized Date/Time: 06/03/18 16:22:13 Pt. Name: DONNA MATHEWS Nelly /Sex: 1960 FEMALE Med Rec #: [id number] Physician: David Gonsales MD Financial #: [id number] Pt. Type: D Room/Bed: / Admit/Disch: 06/03/18 [...] Entry 2 Entry 3 Case Attendee David Gonsales MD, Barbara RN Nikolaus, Linda M Role Performed Surgeon - Primary Cream Ripener Scrub Personnel Time In 06/03/18 15:45:00 06/03/18 [...] Unfinalizing 06/03/18 16:21 MHBLONG Modify Pick List Normal [facility] MAGR Preoperative Recordon 0 06-03-2018 [facility] Preoperative Record MAGR Pre-Op Record Summary Primary Physician: David Gonsales MD Finalized Date/Time: 06/03/18 15:51:38 Pt. Name: DONNA MATHEWS/Sex: 1960 FEMALE Med Rec #: [id number] Physician: David Gonsales MD Financial #: [id number] Pt. Type: D Room/Bed: / Admit/Disch: 06/03/18 [...] Signed By: Irlanda Knox RN 06/03/18 15:51 [facility] Patient Handouton 06-03-2018 Patient Handout [facility] Progress Note - Nurseon 05-10 Protein mass conc Talked with Yesenia @ [facility], instructed to have pt here @ 1030 on 06-03-18 and to fax Med. list-verbalized understanding. [Electronically Signed on: 06/02/2018 10:58 EDT] Cherise Espinoza RN [Verified on: 06/02/2018 10:58 EDT] Cherise Espinoza RN [facility] Vital Signs Date Time Vital Sign Value Performing Clinician Facility 05-02-2023 12:12-0500 Body height 167.6 cm Krystin Salcedo MD Work Phone: [facility] 05-02-2023 12:12-0500 Body mass index (BMI) [Ratio] 47.64 kg/m2 [facility] 05-02-2023 12:12-0500 Body weight 133.81 kg [facility]in [facility] 05-02-2023 12:12-0500 Diastolic blood pressure 70 mm[Hg] Krystin Salecdo MD Work Phone: [facility] 05-02-2023 12:12-0500 Systolic blood pressure 138 mm[Hg] [facility] 01-24-2021 09:20-0500 Body height 170.18 cm Kendell Garcia Other [employer] Other 01-24-2021 09:20-0500 Body mass index (BMI) [Ratio] 49.17 kg/m2 Kendell Garcia Other [employer] Other 01-24-2021 09:20-0500 Body weight 142.43 kg Kendell Garcia Other [employer] Other 01-24-2021 09:20-0500 Diastolic blood pressure 86 mm[Hg] Kendell Garcia Other [employer] Other 01-24-2021 09:20-0500 Systolic blood pressure 134 mm[Hg] Kendell Garcia Other [employer] Other Encounters Encounter Date Encounter Type Care Provider Facility Start: 10-21-2023 End: 10-21-2023 ambulatory BRANDON BOB [facility] Start: 09-26-2023 End: 09-26-2023 ambulatory HONORIO MAY Not Available Start: 09-19-2023 End: 10-10-2023 ambulatory ANDRE GRAVES [facility] Start: 08-16-2023 End: 08-16-2023 ambulatory TODD Garza [facility] Start: 08-01-2023 End: 08-01-2023 ambulatory [facility]STIN [facility] Start: 07-12-2023 End: 07-12-2023 ambulatory GABRIELLE CONTRERAS [facility] Start: 07-08-2023 End: 07-09-2023 ambulatory Fausto Vasquez MD Facility:[facility] Start: 06-18-2023 End: 06-18-2023 ambulatory ADDIS WISE [facility] Start: 06-14-2023 End: 06-14-2023 ambulatory [facility]STIN [facility] Start: 06-03-2023 End: 06-03-2023 ambulatory KRYSTIN [facility] Start: 05-31-2023 End: 06-02-2023 ambulatory TODD Garza [facility] Start: 05-31-2023 End: 06-02-2023 ambulatory AMY YAÑEZ [facility] Start: 05-30-2023 End: 06-01-2023 ambulatory KRYSTIN [facility] Start: 05-02-2023 End: 05-02-2023 ambulatory [facility] Start: 05-02-2023 End: 05-02-2023 Postop follow up visit related to original px Krystin Salcedo MD Work Phone: [facility] Comment on above: Morbid obesity ([facility]) (Primary Dx); ESRD (end stage renal disease) ([facility]); Arteriovenous fistula stenosis, initial encounter ([facility]) Start: 04-17-2023 End: 04-17-2023 ambulatory [facility] Start: 04-12-2023 End: 05-10-2023 ambulatory ANDRE Mello STAR [facility] Start: 04-01-2023 End: 04-01-2023 ambulatory [facility] Start: 03-05-2023 Telephone encounter Elba Ramirez [facility] Start: 02-28-2023 End: 03-11-2023 ambulatory ANDRE GRAVES [facility] Start: 02-25-2023 End: 02-25-2023 Evaluation and management of inpatient ANURAG ISABEL [facility] Start: 02-25-2023 End: 02-25-2023 Evaluation and management of inpatient KRYSTIN SALCEDO [facility] Start: 02-19-2023 End: 02-19-2023 ambulatory Rosina Fink Facility:[facility] Start: 07-04-2022 End: 07-05-2022 ambulatory NARENDRANATH LAKSHMIPATHY . Facility:[facility] Start: 06-07-2022 End: 06-08-2022 ambulatory NARENDRANATH LAKSHMIPATHY . Facility:[facility] Start: 06-07-2022 End: 06-08-2022 ambulatory NARENDRANATH LAKSHMIPATHY . Facility:[facility] Start: 05-10-2022 End: 05-11-2022 ambulatory SKYLER AYANA Facility:[facility] Start: 04-12-2022 End: 04-13-2022 ambulatory GLORY [...] 02-21-2021 End: 02-21-2021 ambulatory Kendell Garcia Other [employer] Other Start: 02-21-2021 Telephone encounter Kendell Garcia [facility] Start: 01-24-2021 End: 01-24-2021 ambulatory Kendell Garcia Other [place] [employer] Other Start: 01-24-2021 Office outpatient ne w 45 minutes Kendell Garcia [facility] Neurosurgery Start: 08-22-2020 Telephone encounter José Lewis DPM Work Phone: Orthopaedics Comment on above: Question Start: 07-09-2018 End: 07-09-2018 Patient encounter procedure DAVID GONSALES [facility] Start: 06-03-2018 End: 06-26-2018 Patient encounter procedure David Gonsales Facility:[facility] Procedures Date Procedure Procedure Detail Performing Clinician Start: 10-21-2023 Follow-up visit Follow-up BRANDON BOB Start: 09-13-2022 Adult depression scr eening assessment Elba Hernandez Start: 07-09-2018 DISCHARGE PATIENT MARTIN GONSALES Plan of Treatment Date Care Activity Detail Author Start: 12-08-2028 Subsequent hospital visit by physician 12/08/2028 7:37 AM EDT [facility] [address] [address] Harjit Lopez MD [address] [place] [address] Chronic kidney disease (Primary Dx); Anemia; Multiple sclerosis (CMS-HCC); CKD (chronic kidney disease) Discharge Disposition: Home [facility] Comment on above: Chronic kidney disea se (Primary Dx); Anemia; Multiple sclerosis (CMS-HCC); CKD (chronic kidney disease) Start: 01-24-2025 LIPID SCREEN LIPID SCREEN [facility] Start: 05-02-2024 Adult BMI Screening Adult BMI Screen ing [employer] Start: 05-02-2024 Tobacco Screening Tobacco Screening [employer] Start: 02-26-2024 Adult BMI Screening Adult BMI Screen ing [employer] Start: 02-26-2024 Tobacco Screening Tobacco Screening [employer] Start: 09-14-2023 Depression Screening Depression Scre ening [employer] Start: 05-09-2023 End: 05-09-2023 Patient encounter procedure 05/09/2023 1:30 PM EST Office Visit [facility] [address] [place] [address] Ivette Sanchez, HAT LINING BLOCKER-SLEEVE SETTER [address] [place] [address] [facility] Start: 05-02-2023 End: 05-02-2024 RFA Lower extremity vessels - left Views W contrast IR angiography extremity left Imaging Routine Morbid obesity ([facility]) ESRD (end stage renal disease) ([facility]) Arteriovenous fistula stenosis, initial encounter ([facility]) Expected: 05/02/2023, Expires: 05/02/2024 [facility] Work Phone: Comment on above: Expected: 05/02/2023 , Expires: 05/02/2024 Start: 03-25-2023 End: 03-25-2023 Patient encounter procedure 03/25/2023 2:10 PM EST Office Visit [facility] [address] [place] [phone] Alvaro Howard MD [address] [place] [address], [address] [place] [address] [facility] Start: 11-09-2022 COVID-19 Vaccine ( season) COVID-19 Vaccine ( season) [facility] Start: 11-09-2022 Influenza vaccination Influenza Vacc ine [facility] Start: 11-09-2021 Influenza vaccination INFLUENZ A (Season Ended) [facility] Start: 08-28-2020 COVID-19 VACCINE (3 - Booster for Pfizer series) COVID-19 VACCINE (3 - Booster for Pfizer series) [facility] Start: 05-25-2017 DIABETES SCREEN DIABETES SCREEN [facility] Start: 10-26-2011 Administration of varicella zoster vaccine Zoster (Shingles) Vaccine (1 of 2) [facility] Start: 10-26-2011 SHINGRIX VACCINE (1 of 2) SHINGRIX VACCINE (1 of 2) [facility] Start: 2006 COLOGUARD (FIT-DNA) COLOGUARD (FIT-D NA) [facility] Start: 2006 Colonoscopy COLONOSCOPY [facility] Start: 2006 COLORECTAL CANCER SCREENING COLORECTAL CANCER SCREENING [facility] Start: [address] COLONOGRAPHY [facility] Start: 2006 FECAL OCCULT BLOOD FECAL OCCULT BLOO D [facility] Start: 2006 SIGMOIDOSCOPY SIGMOIDOSCOPY [facility] Start: 2001 Mammography MAMMOGRAM [facility] Start: 10-26-1991 HPV TESTING HPV TESTING [facility] Start: 1982 PAP TESTING PAP TESTING [facility] Start: 1982 Screening for malign ant neoplasm of cervix Pap Smear [facility] Start: 1980 DTaP,Tdap and Td Vaccines (1 - Tdap) DTaP,Tdap and Td Vaccines (1 - Tdap) [facility] Start: 1980 Urine microalbumin profile DTAP,TDAP,TD (1 - Tdap) [facility] Start: 10-26-1979 Adult BMI Follow Up Plan Adult BMI Follow Up Plan [facility] Start: 10-26-1979 HEPATITIS C SCREENING HEPATITIS C SC REENING [facility] Start: 10-26-1979 HIV SCREENING HIV SCREENING [facility] Start: 1973 Adult depression screening assessment DEPRESSION SCREENING [facility] Immunizations Immunization Date Immunization Notes Care Provider [...] 23 valent Quinten Lewis DPM Work Phone: [facility] Payers Date Payer Category Payer Self-pay [id number] 2023 Private Health Insurance [facility] PLUS [id number] 2023-Present [phone] [address] [address] [place] [address] [id number] 2022 Medicare [id number] [id number]. [id number] 2020 Medicaid MEDICAID [facility] MEDICAID [id number] 2020-Present [phone] [address] [place] [address] Medicaid [id number]. [id number] 2017 Medicaid [id number]. 1.13.424.2. [id number] 2002 Medicare MEDICARE MEDICAR E A AND B [id number] 2002-Present [phone] [place] [address] Medicare [id number] [id number]. [id number] 1961 Unknown [id number] 2.16.840.1.160996.3.579.2. 718 1961 Unknown [id number] 2.16.840.1.814796.3.579.2. 177 1961 Unknown [id number] 2.16.840.1.457335.3.579.2. 593 1961 Unknown [id number] 2.16.840.1.365308.3.579.2. 593 1961 Unknown [id number] 2.16.840.1.721091.3.579.2. 593 1961 Unknown [id number] 2.16.840.1.246515.3.579.2. 593 1961 Unknown [id number] 2.16.840.1.928816.3.579.2. 593 1961 Unknown [id number] 2.16.840.1.712816.3.579.2. 593 1961 Unknown [id number] 2.16.840.1.225701.3.579.2. 593 1961 Unknown [id number] 2.16.840.1.122953.3.579.2. 593 1961 Unknown [id number] 2.16.840.1.040886.3.579.2. 593 1961 Unknown [id number] 2.16.840.1.229969.3.579.2. 593 1961 Unknown [id number] 2.16.840.1.606423.3.579.2. 593 1961 Unknown [id number] 2.16.840.1.114436.3.579.2. 1286 1961 Unknown [id number] 2.16.840.1.118110.3.579.2. 196 1961 Unknown [id number] 2.16.840.1.090699.3.579.2. 1286 1961 Unknown [id number] 2.16.840.1.736739.3.579.2. 1286 1961 Unknown [id number] 2.16.840.1.767727.3.579.2. 1286 1961 Unknown [id number] 2.16.840.1.381375.3.579.2. 1286 1961 Unknown [id number] 2.16.840.1.303619.3.579.2. 1286 1961 Unknown [id number] 2.16.840.1.674481.3.579.2. 1286 1961 Unknown [id number] 2.16.840.1.242015.3.579.2. 1286 1961 Unknown [id number] 2.16.840.1.274848.3.579.2. 1286 1961 Unknown [id number] 2.16.840.1.931787.3.579.2. 1286 1961 Unknown [id number] 2.16.840.1.481757.3.579.2. 1286 1961 Unknown [id number] 2.16.840.1.651635.3.579.2. 128 1961 Unknown [id number] 2.16.840.1.053574.3.579.2. 1285 1961 Unknown [id number] 2.16.840.1.602474.3.579.2. 1259 1961 Unknown [id number] 2.16.840.1.081785.3.579.2. 1285 1961 Unknown [id number] 2.16.840.1.362869.3.579.2. 1286 1961 Unknown [id number] 2.16.840.1.235862.3.579.2. 1285 1961 Unknown [id number] 2.16.840.1.707909.3.579.2. 1286 1961 Unknown [id number] 2.16.840.1.925380.3.579.2. 1285 1961 Unknown [id number] 2.16.840.1.736033.3.579.2. 1286 1959 Medicaid [id number] 1959 Medicare [id number] 1959 Medicare [id number] Private Health Insurance [facility] [id number] Unknown [id number] 2.16.840.1.682597.3.579.2. 531 Social History Date Type Detail Facility Start: 03-27-2013 End: 09-13-2022 Tobacco smoking status NHIS Never smoked tobacco [facility] Start: 03-27-2013 End: 09-13-2022 Tobacco use and exposure Smokeless tobacco non-user [facility] Start: 05-05-2014 Alcohol intake Current drinke r of alcohol (finding) [facility] Start: 03-27-2013 History SDOH Alcohol Comment Occasional [facility] Start: 1960 Sex Assigned At Not on file C [facility] Start: 06-27-2020 End: 07-27-2020 Exposure to SARS-CoV-2 (event) Not sure [facility] Start: 03-22-2020 End: 09-13-2022 Sex Assigned At [facility] Motility Count Other Start: 02-26-2023 End: 05-02-2023 Alcohol intake Ex-drinker (finding) [facility] Start: 03-22-2020 End: 09-13-2022 History of Social function [facility] How often to you hav e a drink containing alcohol? Monthly or less [facility] How many standard drinks containing alcohol do you have on a typical day? 1 or 2 [facility] How often do you hav e 6 or more drinks on 1 occasion? Never [facility] Adolescent depressio n screening assessment 0 [facility] Start: 1960 Sex Assigned At Female F [facility] Medical Equipment Procedure Code Equipment Code Equipment Origin al Text Equipment Identifier Dates Graft Bn Canc 30 ml Allgrft - [id number] Start: 05-20-2014 Comment on above: Description: GRAFT B ONE CANC. Fls-Ux-U-Kind Implant - [id number] Start: 10-01-2013 Comment on above: Description: Tashu m Spiral Blade Snb-Lw-K-Kind Implant - [id number] Start: 05-20-2014 Comment on above: Description: 4.5 mm VA-LCP plate, C1713 PLATE Ecy-Ie-H-Kind Implant - [id number] Start: 05-20-2014 Comment on above: Description: 5.0 x 3 4mm locking screw, C1713 SCREW Grv-Af-I-Kind Implant - [id number] Start: 05-20-2014 Comment on above: Description: 5.0 mm x 60mm locking screw, C1713 Rpj-Uc-T-Kind Implant - [id number] Start: 05-20-2014 Comment on above: Description: 5.0 mm x 65mm locking screw, C1713 SCREW Lkk-Qq-G-Kind Implant - [id number] Start: 05-20-2014 Comment on above: Description: 5.0 mm x 70 mm locking screw, C1713 SCREW Nail 12mm 380mm Fem Nlex Im - [id number] Start: 10-01-2013 Comment on above: Description: C1713 N AIL 12MM 380MM FEM NLEX IM Cap End 0mm Fem Ext Strdr Rcs - [id number] Start: 10-01-2013 Screw Bn 5mm 44m m Nlex Ti Ft - [id number] Start: 10-01-2013 Screw Bn 5mm 40m m Nlex Ti Ft - [id number] Start: 10-01-2013 Screw Bn 5mm 66m m Nlex Ti Fem - [id number] Start: 10-01-2013 Comment on above: Description: C1713 S CREW BN 5MM 66MM NLEX TI FEM Screw Bn 4.5mm 40mm Lcp Ss - [id number] Start: 05-20-2014 Screw Bn 4.5mm 42mm Lcp Ss - [id number] Start: 05-20-2014 Screw Bn 4.5mm 46mm Lcp Ss - [id number] Start: 05-20-2014 Screw Bn 4.5mm 32mm Lcp Ss - [id number] Start: 05-20-2014 Screw Bn 4.5mm 34mm Lcp Ss - [id number] Start: 05-20-2014 Screw Bn 4.5mm 36mm Lcp Ss - [id number] Start: 05-20-2014 Screw Bn 4.5mm 38mm Lc Dcp [facility] - [id number] Start: 05-20-2014 Set Cth 24cm 14f r 18ga Str Triniflex Splt3 Bsc Intro Ndl Gw Rpl [id number] - [id number])[id number], [id number] FDA Start: 09-07-2022 Clinical Notes 07-28-2020 to 08-16-2023 Krystin Salcedo MD - 05/02/2023 12:00 PM ESTTelephone Encounter - Elbachris Hernandez - 03/05/2023 3:07 PM ESTTelephone Encounter - Elba Hernandez - 03/05/2023 3:07 PM EST Note Date & Type Note Facility 08-16-2023 Note IR REM TUNLD CENT VE N ACCESS DEVICE History: remove tunnel catheter. Procedure: the tunnelled catheter entry site was sterilely prepped and draped. 1% xylocaine was administered for local anesthesia. The tunnelled catheter was removed intact with blunt dissection. There was no bleeding or immediate complication. No image was obtained. Impression: Tunneled catheter removed without immediate complication without imaging Finalized by Vic Nickerson MD on 08/16/2023 2:53 PM [facility] 05-02-2023 History of Presen t illness Narrative [...] recorded Date of Study: 04/17/23 Ordering Provider: GINA Gonzalez Clinical Indications: ESRD (end stage renal disease) ([facility]) [N18.6 (ICD-10-CM)], A-V fistula ([facility]) [I77.0 (ICD-10-CM)] Interpreting Physicians Performing Staff Roseanne [...] all orders for this visit: Morbid obesity ([facility]) ESRD (end stage renal disease) ([facility]) Arteriovenous fistula stenosis, initial encounter ([facility]) Plan Plan Will arrange for fistula g [...] week. Patient will need to travel from [facility]. Their phone number is [phone]. documented in this encounter [facility] 03-05-2023 Miscellaneous Notes DARY CALLED TO CANCEL SHE DOES NOT WANT TO RESCHEDULE AT THIS TIME documented in this encounter [facility] 03-05-2023 Telephone encounter Note DARY CALLED TO CANCEL SHE DOES NOT WANT TO RESCHEDULE AT THIS TIME [facility] 06-08-2022 Note PROCEDURE: XR SHOULD ER LT [...] our patients to inform us about any ufnj-kge-hvlrwbw medications or herbal remedies/nutritional supplements/alternative remedies. 2. [...] options with their primary care provider. [facility] 04-12-2022 Note CONSULTATION CONSULTATION DATE: 04/12/2022 [...] 5'6 , weighs 299 pounds per the longterm scale yesterday. FOCUSED EXAM - NECK: Range [...] Patient is in agreement to this. 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 That weight was obtained from longterm records, as she was recently weighed. GENERAL [...] and the therapist to do at the longterm. This includes a menthol heat rub to [...] continues to answer my questions appropriately. [facility] 10-31-2021 Note CONSULTATION CONSULTATION DATE: 10/31/2021 [...] is a poor historian, is in a longterm. PHYSICAL EXAM: FOCUSED EVALUATION OF THE LEFT SHOULDER: The patient has fullness and tenderness along the left shoulder. Significant jump response is noted along the AC joint and also along he glenohumeral in flexion and abduction of the left shoulder. Bell Clerk strength is maintained however poor. The patient has cervicothoracic kyphosis. The patient does ambulate with a motorized wheelchair. The patient is accompanied by her caregiver from the longterm. IMPRESSION: Current additional working diagnosis on the [...] Kenia Beck but unable to verify) [facility] 10-31-2021 Note CONSULTATION PROCEDURE DATE: 10/31/2021 [...] up in the office as needed. [facility] 10-18-2021 Note CONSULTATION CONSULTATION DATE: 10/18/2021 This is a 60-year-old female with a history of MS who resides in a assisted facility. She is following up for a [...] 5'6 , weighs 320 pounds according to longterm data. GENERAL APPEARANCE: Pleasant, appropriate, in no [...] agrees with this plan of care. [facility] 07-27-2021 Note CONSULTATION CONSULTATION DATE: 07/27/2021 [...] PLAN: An order was written for the assisted facility to apply menthol heat rub twice [...] of care and all questions were answered. [facility] Signed and Approved by: ABHINAV IGNACIO . 07/31/2021 15:07:[address] [facility] 01-24-2021 Evaluation note Encounter Date Diagnosis [...] her ability to ambulate very very poor [employer] Other 06-15-2021 Miscellaneous Notes* Telephone Encounter - Alize Patton (Pss) - 08/23/2020 1:19 PM EDT Replied with phone number via my chart. * Telephone Encounter - Shahrzad Khoury - 08/22/2020 2:25 PM EDT Patient calling in regards to the shoes company that provider advise patient call. States she ordered shoes and its been over a month but lost their number and has no way of getting in touch with them. Patient is requesting a call at [phone] Please advise. [facility] NoteHNO ID: [id number] Author: Quinten Lewis DPM Service: ? Author [...] follow-up as needed pending progress. Quinten Lewis, [facility] noteNo InformationNortLifecare [facility] [employer] Other evaluation note* Diagnosis Chronic kidney disease- Primary Chronic kidney disease, unspecified Anemia Unspecified anemia Multiple sclerosis ([facility]) Multiple sclerosis CKD (chronic kidney disease) Chronic kidney disease, unspecified [facility] Morbid obesity ESRD (end stage renal disease) ([facility]) End stage renal disease Arteriovenous fistula stenosis, initial encounter ([facility]) documented in this encounter [facility] Medical SystemEvaluation noteNo assessment information available [facility] Work Phone: History general Narrative - Reported* Type Description Date Medical History multiple sclerosis Medical History bilateral hearing loss Medical History hypertension Medical History diabetes mallitus Medical History thrombacytopenia Medical History kidney disease Surgical History tubal ligation Surgical History knee replacement 2005 Surgical History Foot Surgery-LEFT 2006,2008,200 9 Hospitalization History See Above [place] Other InstructionsNot on filedocumented in this encounter [facility] SystemInstructionsNot on filedocumented in this encounter [facility] Shockwave Medical SystemReason for visit Narrativereferral [facility] [place] Other reason for visit NarrativePain Medicine Referral UpdateCharlestown [facility] Other Summary Purpose Family History No Family History Records Found Relationship Condition Age at Onset Recorded Date/T jacqui Not Specified Type 2 diabetes mellitus Unknown Advance Directives No Advanced Directives Records FoundDocuments on File Type Date Recorded Patient 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 Advance Directive(s) 12/04/2013 5:55 PM Latest Code Status on File Code Status Date Activated Date Inactivated Comments Full Code 09/13/2022 9:32 AM 09/20/2022 3:29 AM Latest Code Status on File Code Status Date Activated Date Inactivated Comments Full Code 09/13/2022 9:32 AM 09/20/2022 3:29 AM Hospital Course Note [facility] SURGERY Clinical Discharge Summary PERSON INFORMATION Name DONNA MATHEWS Age 57 Years 62 Sex FEMALE Language Brazilian PCP Urbano BROWN, Harjit Marital Status Single Med Service Ambulatory Surgery Acct# Arrival 06/03/18 12:10:14 Visit Reason SURGERY - CYSTOSCOPY Acuity LOS 006 05:41 Address: [address] [place] [id number] Comment: PROVIDER INFORMATION VITALS INFORMATION Vital Sign [...] Diagnosis 1 Neck pain (M54.2) Referral Organization [facility] urosurgery Referring Provider First Name Kendell Referring Provider Last Name Radha Referring Provider Specialty Neurologica l Surgery Referred Organization [facility] Referred Provider Jr. Galindo William Referred Address [address],[place],[address] Referred Provider Specialty Pain Medicin e Referral Priority Routine Specialty Diagnoses / Procedures Referred By Laurent talavera Referred To Contact Radiology Diagnoses Morbid obesity ([facility]) ESRD (end stage renal disease) ([facility]) Arteriovenous fistula stenosis, initial encounter ([facility]) Procedures IR angiography extremity left Krystin Salcedo MD [address] [place] [address], [address] [place] [address] Referral ID Status Reason Start Date Expiration Date V isits Requested Visits Authorized [id number] Pending Review 05/02/2023 05/01/2024 1 1 Additional Source Comments INFORMATION SOURCE (unrecogn ized section and content) DATE CREATED AUTHOR 06/26/2018 [facility] DATE CREATED AUTHOR AUTHOR'S ORGANIZ ATION 07/15/2018 [facility] DATE CREATED AUTHOR AUTHOR'S ORGANIZ ATION 06/05/2021 Deny Danielson [facility] DATE CREATED AUTHOR AUTHOR'S ORGANIZ ATION 07/07/2021 [facility] DATE CREATED AUTHOR AUTHOR'S ORGANIZ ATION 07/08/[address] [facility] DATE CREATED AUTHOR AUTHOR'S ORGANIZ ATION 04/02/2023 [facility] DATE CREATED AUTHOR AUTHOR'S ORGANIZ ATION 07/10/2023 [facility] DATE CREATED AUTHOR AUTHOR'S ORGANIZ ATION 08/18/2023 [facility] DATE CREATED AUTHOR AUTHOR'S ORGANIZ ATION 09/03/2023 [facility] DATE CREATED AUTHOR AUTHOR'S ORGANIZ ATION 09/30/2023 [facility] DATE CREATED AUTHOR AUTHOR'S ORGANIZ ATION 10/22/2023 [facility] Source Comments (unrecognize d section and content) In the event this informatio n is protected by the Federal Confidentiality of Alcohol and Drug Abuse Patient Records regulations: The Federal rules restrict any use of the information to criminally investigate or prosecute any alcohol or drug abuse patient.[facility] Reason for Visit (unrecogniz ed section and content) Reason Comments Question Care Teams (unrecognized sec tion and content) Food Beverage Attendant Relationship Specialty Start Date End Date Doug Ornelas MD [address] [place] [address] PCP - General 01/18/04 Christopher Lema Referring Podiatry 03/31/13 Food Beverage Attendant Relationship Specialty Start Date End Date Todd George MD [address] [place] [address] PCP - General Internal Medicine 09/13/22 Food Beverage Attendant Relationship Specialty Start Date End Date Todd George MD [address] [place] [address] PCP - General Internal Medicine 09/13/22 Goals (unrecognized section and content) Goals may be documented in a n alternate section FOR RECORDS PERTAINING TO PATIENTS WHO ARE [...] BE BASED ON THE PRIMARY CLINICAL RECORDS. [facility]. provides no warranty or guarantee of the accuracy or completeness of information in this document.
--- NOTE | 2023-10-23 08:19 | P.CN_ITS ---
Consult Note: HPI Data of Consult Patient: known to practice within the last 3 years Requesting Physician: Estella Hayes NP Primary Care Provider: LIYAH STOLL Consult Narrative Reason for consult: f/u Narrative: Shirley Lane a pleasant 62 year old female presents for evaluation and management of chronic left shoulder and left arm pain. Today pain 2/10 increasing to 10/10 sharp pain with weakness of LUE. Previous MRI of left shoulder from 07/01 reveals full rotator cuff tear. Patient has had mild benefit from previous shoulder and trigger point injections through our office. Patient has ESRD on dialysis. Patient has been deemed non surgical by orthopedic surgery. [facility]. cc:: CC: Estella Hayes NP Review of Systems ROS Status of ROS 10 or more systems reviewed and unremark able except as noted in history and below Musculoskeletal Reports: extremity pain and joint pain PFSH PFSH Medical History Neck pain ?M54.2 - Cervicalgia (ICD-10) Low back pain ?M54.50 - Low back pain, unspecified (ICD-10) Thrombosis ?I82.90 - Acute embolism and thrombosis of unspecified vein (ICD-10) Multiple sclerosis ?G35 - Multiple sclerosis (ICD-10) Hearing deficit ?H91.90 - Unspecified hearing loss, unspecified ear (ICD-10) Stroke ?I63.9 - Cerebral infarction, unspecified (ICD-10) Acid reflux ?K21.9 - Gastro-esophageal reflux disease without esophagitis (ICD-10) Obesity ?E66.9 - Obesity, unspecified (ICD-10) Diabetes ?E11.9 - Type 2 diabetes mellitus without complications (ICD-10) Kidney failure ?N19 - Unspecified kidney failure (ICD-10) High cholesterol ?E78.00 - Pure hypercholesterolemia, unspecified (ICD-10) Hypertension ?I10 - Essential (primary) hypertension (ICD-10) Surgical History History of total knee arthroplasty ?Z96.659 - Presence of unspecified artificial knee joint (ICD-10) H/O lumbosacral spine surgery ?Z98.890 - Other specified postprocedural states (ICD-10) History of tonsillectomy and adenoidectomy ?Z90.89 - Acquired absence of other organs (ICD-10) H/O knee surgery ?Z98.890 - Other specified postprocedural states (ICD-10) H/O tubal ligation ?Z98.51 - Tubal ligation status (ICD-10) H/O foot surgery ?Z98.890 - Other specified postprocedural states (ICD-10) Hx of cholecystectomy ?Z90.49 - Acquired absence of other specified parts of digestive tract (ICD- 10) H/O gastric bypass ?Z98.84 - Bariatric surgery status (ICD-10) Meds Home Medications and Allergies Home Medications ?Medication ?Instructions ?Recorded ?Confirmed ?Type Lactobacillus acidophilus 250 500 mmu cells PO DAILY 09/14/22 09/25/22 History million cell capsule (Probiotic Acidophilus) acetaminophen 650 mg 650 mg PO .q6hr PRN pain 09/14/22 09/25/22 History tablet,extended release (8 Hour Pain Reliever) amlodipine 5 mg tablet (Norvasc) 5 mg PO DAILY 09/14/22 09/14/22 History ascorbic acid (vitamin C) 500 mg 500 mg PO DAILY 09/14/22 09/25/22 History tablet,extended release (C-500) aspirin 81 mg tablet,delayed 81 mg PO DAILY 09/14/22 09/25/22 History release atorvastatin 80 mg tablet 80 mg PO QPM 09/14/22 09/25/22 History biotin 10 mg tablet 10 mg PO DAILY 09/14/22 09/25/22 History famotidine 20 mg tablet 20 mg PO DAILY 09/14/22 09/25/22 History ferrous sulfate 325 mg (65 mg 325 mg PO DAILY 09/14/22 09/25/22 History iron) tablet (Feosol) folic acid 1 mg tablet 1 mg PO DAILY 09/14/22 09/25/22 History glucosamine sulfate 500 mg tablet 500 mg PO TID 09/14/22 09/14/22 History (Glucosamine) lactulose 10 gram/15 mL oral PO QID 09/14/22 History solution lutein 6 mg capsule 6 mg PO DAILY 09/14/22 09/25/22 History magnesium hydroxide 400 mg/5 mL 30 ml PO DAILY PRN constipation 09/14/22 09/14/22 History oral suspension (Dulcolax (magnesium hydroxide)) melatonin 3 mg capsule 3 mg PO DAILY PRN sleep 09/14/22 09/14/22 History mirabegron 25 mg tablet,extended 25 mg PO DAILY 09/14/22 09/14/22 History release 24 hr (Myrbetriq) modafinil 100 mg tablet 100 mg PO QDAY 09/14/22 09/14/22 History multivitamin 1 tab PO DAILY 09/14/22 09/25/22 History nystatin 100,000 unit/gram topical 1 applic topical BID 09/14/22 09/25/22 History powder omega 7-rjh-plu-fish oil 1,000 mg 1 cap PO DAILY 09/14/22 09/25/22 History (120 mg-180 mg) capsule (Fish Oil) oxcarbazepine 300 mg tablet 300 mg PO QDAY 09/14/22 09/25/22 History oxycodone 10 mg tablet 10 mg PO QDAY 09/14/22 09/14/22 History polyethylene glycol 3350 17 17 g PO DAILY 09/14/22 09/14/22 History gram/dose oral powder (ClearLax) potassium citrate 10 mEq (1,080 10 meq PO DAILY 09/14/22 09/14/22 History mg) tablet,extended release pregabalin 75 mg capsule (Lyrica) 75 mg PO BID 09/14/22 09/25/22 History sertraline 50 mg tablet (Zoloft) 50 mg PO DAILY 09/14/22 09/25/22 History tizanidine 4 mg capsule (Zanaflex) 4 mg PO Q12H PRN muscle spasticity 09/14/22 09/14/22 History tramadol 50 mg tablet 50 mg PO Q8H PRN pain 09/14/22 09/14/22 History trazodone 50 mg tablet 25 mg PO .hs 09/14/22 09/25/22 History vitamin A-vitamin C-vit E-min 1 tab PO DAILY 09/14/22 09/14/22 History tablet (Ocutabs tablet) vitamin B complex (B 1 tab PO DAILY 09/14/22 09/14/22 History Complex-Vitamin B12 tablet) Allergies Allergy/AdvReac Type Severity Reaction Status Date / Time No Known Drug Allergies Allergy Verified 09/25/22 10:30 Exam Narrative Exam Narrative: hard of hearing Constitutional Documenting provider has reviewed patient's vital signs: yes Common normals: no apparent distress, oriented x3, healthy appearing, alert and well nourished General appearance: cooperative Nutritional appearance: obese HENMT Common normals: normocephalic, hearing grossly normal bilaterally and moist oral mucous membranes Head and scalp: normocephalic Eye Common normals: PERRL Pupil: PERRL Neck & C-Spine Common normals: full ROM General: normal visual inspection Chest Common normals: inspection of chest normal Respiratory Common normals: normal respiratory effort, no retractions and no use of accessory muscles Extremity Common normals: normal to inspection Left upper extremity: shoulder joint and upper arm Other: tender to touch, strength 4/5 in LUE. pain over ac joint, suprascapular/axillary nerves, limited ROM. unable to raise arm over head, unable to perform active cross body/posterior lift off/scratch test Neuro Common normals: oriented x3, CN's II-XII intact bilaterally, moves all extremities, no focal motor deficits, no sensory deficits noted and deep tendon reflexes 2+ bilaterally Sensorium/orientation: alert Motor exam: strength 5/5 throughout and no movement abnormalities noted Psych Common normals: mental status grossly normal, thought process normal, cooperative, affect normal, speech normal and activity/motor behavior normal Speech: normal speech Thought process: normal thought process Results Additional Findings Additional findings: If on a controlled substance or opioids, I have checked an [place] report on this patient and there are no aberrancies noted in the prescribing history.??If on a controlled substance or opioid a drug screen was completed and reviewed within the last year, and if there has not been a drug screen completed we ordered one today to monitor higher risk, state monitored pain medication use. As part of providing excellent, safe, comprehensive care, the following was completed at our patient's visit: 1. A medication reconciliation and review to ensure accurate knowledge of current/active medications, including asking our patients to inform us about any [id number] medications or herbal remedies/nutritional supplements/alternative remedies. 2. A review to specifically ensure our patients have had annual screening for screening for depression, screening for tobacco use, and screening for unhealthy alcohol use. For concerning screenings had a discussion with the patient, provided patient education, and recommended follow-up with primary care provider when appropriate. If patient noted with a risk of falling, they received edu cation on strength, gait, and balance training to prevent future risk of falling. 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
== END 2023-10-23 07:54 | disposition home or self-care (01) ==
LOC: PM 07:53
PROVIDERS: PCP Internal Medicine; Visit Provider Nurse Practitioner
DX: M25.552 Pain in left hip (principal); M79.18 Myalgia, other site; G58.8 Other specified mononeuropathies
CPT/HCPCS: G0463

== ENCOUNTER 2023-11-08 13:33 | Outpatient (OUT) | payer MEDICARE, MEDICAID, SELFPAY ==
--- NOTE | 2023-11-08 13:39 | MR_ITS ---
The [address] [address] Patient Name: DONNA MATHEWS MRN: [id number] date: 1960 Sex: F Assigned Patient Location: MRI Current Patient Location: Accession/Order Number: [id number] Exam Date: 11/08/2023 13:55 Report Date: 11/11/2023 14:49 At the request of: HONORIO MAY Procedure: MR head/brain wo con EXAM: MR head/brain wo con HISTORY: Multiple Sclerosis G35 COMPARISON: MRI brain 04/12/2022. TECHNIQUE: MRI of the brain was performed without contrast. FINDINGS: Exam is distorted secondary to motion artifact. Findings are made within these confines. There is no restricted diffusion to suggest acute infarct. There is no midline shift, mass effect, or abnormal extraaxial fluid collections. There is moderate generalized cerebral volume loss. There are multiple bright T2 signal throughout the supratentorial white matter, most of which oriented perpendicularly to the ventricles, grossly unchanged compared to prior examination from 04/12/2022. None of the lesions demonstrate restricted diffusion. Some of the lesions demonstrate intrinsic low T1 signal intensity which is consistent with axonal loss. No new lesions are identified. The major intracranial flow voids are visualized. The cerebellar tonsils are normal in position. The orbits are unremarkable. The paranasal sinuses show no air-fluid level. There are mucous retention cysts and mucosal thickening within right maxillary sinus. The mastoid air cells are clear. The calvarium and extracranial soft tissues are unremarkable. MR/MR head/brain wo con IMPRESSION: No discrete acute intracranial abnormality identified. Multiple T2 signal abnormality throughout the supratentorial white matter, compatible with patient's diagnosis of multiple sclerosis, stable since 04/12/2022. Within the limitation of lack of IV contrast, no evidence for interval progression or active demyelination identified. Electronically authenticated by: COLE LEI Date: 11/11/2023 14:49
--- OUTSIDE RECORDS SUMMARY | 2023-11-08 13:51 | XMS_ITS | CCD ---
Author Organization [facility] Care Team Providers Care Supervisor Porcelain Department Name Role Phone David Gonsales Admitting Unavailable David Gonsales Attending Unavailable Harjit Lopez Primary Care Unavailable DAVID GONSALES Admitting Unavailable DAVID GONSALES Attending Unavailable HARJIT LOPEZ Primary Care Unavailable Doug Ornelas MD Primary Care Provider [phone] Christopher Lema Unavailable Kendell Garcia Unavailable [...] Unavailable Todd George MD Primary Care Provider [phone] ZIYAD OCHOA Attending Unavailable GEORGE, TODD B [...] Care Unavailable Rosina Fink Admitting Unavailab kathryn RIVESRHONORIO ELIZONDO Attending Unavailable ANDRE GRAVES N Attending Unavailable GABRIELLE CONTRERAS M Referring Unavailable TODD GEORGE B Primary Care Unavailable ANDRE GRAVES N [...] adverse reactions to drug (disorder) [facility] [place] Repository Medications Current Medications Medication Drug Class(es) [...] mouth in the morning. 0 Active calcitriol 0.66566 mg oral capsule (2 sources) Vitamin D3 [...] 12:00am docusate sodium 50 mg / sennosides, senior care 8.6 mg oral tablet (2 sources) Start: [...] venous catheter. 0 08/22/2022 Active lactobacillus acidophilus [id number] unt / pectin 100 mg oral tablet [...] and 1 Application before bedtime. 0 Active [place] 5-Otm-Cvy-Fish Oil (Fish Oil) 1,000 mg (120 mg-180 mg) Capsule (1 source) Start: 03-12-19 19 take 2 capsules by mouth once daily [place] 5-Ocd-Sea-Fish Oil (Fish Oil) 1,000 mg (120 mg-180 [...] (RENVELA) 800 mg tablet sodium zirconium cyclosilicate 41350 mg powder for oral suspension (1 source) [...] MG Oral for 30 Active Vit C-Vit U-Fbonrs-Jyj-Om-3 (Ocuvite) 071-82-8-150 xt-smhg-yy-mg Capsule (1 source) Start: 03-12-2018 take 1 capsule by mouth once daily Vit C-Vit W-Jqwjmg-Mel-Om-3 (Ocuvite) 849-56-6-150 iz-yqoq-oq-mg Capsule Active 1 CAP PO Daily March [...] Comment on above: Take 1 tablet by [facility] twice daily. famotidine 20 mg oral tablet [...] Take 1 capsule by mo [facility] once daily. Fish Oil-[place]-3 Fatty Acids (FISH OIL) 340-1,000 mg cap (1 source) Fish Oil-[place]-3 Fatty Acids (FISH OIL) 340-1,000 mg cap [...] 1 tablet by attila th once daily. Oxyjpnkuurlo-Uyfa-Nmd ic Acid (Certavite-Antioxidan t) 18-400 mg-mcg Tablet (1 source) Start: 03-12-19 End: 09-12-19 take 1 tablet by mouth once daily Yijnmykbtzxx-Zxiu-Ot lic Acid (Certavite-Antioxida nt) 18-400 mg-mcg Tablet [...] by mouth twice daily. polyethylene glycol 3350 70413 mg powder for oral solution (4 sources) [...] 07-12-2023 Bilirubin Ql (U) Negative Normal NEG [facility] Comment on above: Performed By: #### U A #### [facility] ([id number]) [address] [place] [address] 13760 BLOOD/HGB MODERATE Abnormal NEG [facility] Comment on above: Performed By: #### U A #### [facility] ([id number]) [address] [place] [address] 07587 Color (U) YELLOW Normal YELLOW [facility] Comment on above: Performed By: #### U A #### [facility] ([id number]) [address] [place] [address] 15154 Glucose Ql (U) Negative Normal NEG [facility] Comment on above: Performed By: #### U A #### [facility] ([id number]) [address] [place] [address] 93787 Ketones Ql (U) Negative Normal NEG [facility] Comment on above: Performed By: #### U A #### [facility] ([id number]) [address] [place] [address] 00575 Leukocyte esterase Test strip Ql (U) MODERATE Abnormal NEG [facility] Comment on above: Performed By: #### U A #### [facility] ([id number]) [address] [place] [address] 15096 Nitrite Ql (U) Negative Normal NEG [facility] Comment on above: Performed By: #### U A #### [facility] ([id number]) [address] [place] [address] 87704 pH (U) 5.5 [pH] Normal 5.0-8.5 [facility] Comment on above: Performed By: #### U A #### [facility] ([id number]) [address] [place] [address] 07604 Protein Ql (U) 100 mg/dL Abnormal NEG [facility] Comment on above: Performed By: #### U A #### [facility] ([id number]) [address] [place] [address] 79185 R.B.CELLS 10 /hpf High 0-5 [facility] Comment on above: Performed By: #### U A #### [facility] ([id number]) [address] [place] [address] 74545 Specific gravity (U) [Rel density] 1.015 Normal 1.003-1.035 [facility] Comment on above: Performed By: #### U A #### [facility] ([id number]) [address] [place] [address] 28893 SQUAMOUS EPITHELIUM 10 /hpf High 0-5 [facility] Comment on above: Performed By: #### U A #### [facility] ([id number]) [address] [place] [address] 37733 TURBIDITY CLOUDY Abnormal CLEAR [facility] Comment on above: Performed By: #### U A #### [facility] ([id number]) [address] [place] [address] Urobilinogen Qn (U) 0.2 {Victor Manuel'U}/dL Normal <1.1 [facility] Comment on above: Performed By: #### U A #### [facility] ([id number]) [address] [place] [address] 67641 W.B.CELLS 60 /hpf High 0-5 [facility] Comment on above: Performed By: #### U A #### [facility] ([id number]) [address] [place] [address] 25554 URINE CULTUREon 07-12-2023 Bacteria identified Cx Nom (U) CULTURE RESULTS MULTIPLE SPECIES PRESENT. PROBABLE COLLECTION CONTAMINATION. SUGGEST REPEAT SPECIMEN. MIXED GRAM POSITIVE AND GRAM NEGATIVE ORGANISMS Normal [facility] Comment on above: Performed By: #### 6 30-4 #### [facility] ([id number]) [address] [place] [address] BASIC METABOLIC PANLon 05-31 Anion gap [Moles/Vol] 10 mmol/L Normal 5-15 [facility] Comment on above: Performed By: #### C BCA, BMP #### [facility] ([id number]) [address] [place] [address] Calcium [Mass/Vol] 7.9 mg/dL Low 8.5-10.5 [facility] Comment on above: Performed By: #### C BCA, BMP #### [facility] ([id number]) [address] [place] [address] Chloride [Moles/Vol] 98 mmol/L Normal 98-109 [facility] Comment on above: Performed By: #### C BCA, BMP #### [facility] ([id number]) [address] [place] [address] CO2 [Moles/Vol] 29 mmol/L Normal 22-32 [facility] Comment on above: Performed By: #### C BCA, BMP #### [facility] ([id number]) [address], [address] [place] [address] Creatinine [Mass/Vol] 3.70 mg/dL High 0.40-1.00 [facility] Comment on above: Result Comment: METH OD TRACEABLE TO IDMS STANDARD Performed By: #### C BCA, BMP #### [facility] ([id number]) [address], [address] [place] [address] GFR/1.73 sq M.predicted among non-blacks MDRD (S/P/Bld) [Vol rate/Area] 13 mL/min/{1.73_m2} Low >59 [facility] Comment on above: Result Comment: Reported eGFR is based on the CKD-EPI 2020 equation that does not use a race coefficient. Performed By: #### C BCA, BMP #### [facility] ([id number]) [address], [address] [place] [address] Glucose [Mass/Vol] 93 mg/dL Normal 65-99 [facility] Comment on above: Performed By: #### C BCA, BMP #### [facility] ([id number]) [address], [address] [place] [address] Potassium [Moles/Vol] 3.9 mmol/L Normal 3.5-5.0 [facility] Comment on above: Performed By: #### C BCA, BMP #### [facility] ([id number]) [address], [address] [place] [address] Sodium [Moles/Vol] 137 mmol/L Normal 134-146 [facility] Comment on above: Performed By: #### C BCA, BMP #### [facility] ([id number]) [address], [address] [place] [address] Urea nitrogen [Mass/Vol] 26 mg/dL Normal 5-27 [facility] Comment on above: Performed By: #### C BCA, BMP #### [facility] ([id number]) [address], [address] [place] [address] CBC AND AUTO DIFFon 06-01-19 ABSOLUTE BASOPHIL 0.0 X10E9/L Normal 0.0-0.2 [facility] Comment on above: Performed By: #### C LUIS, BMP #### [facility] ([id number]) [address], [address] [place] [address] ABSOLUTE NEUTROPHIL 4.8 X10E9/L Normal 1.5-6.6 [facility] Comment on above: Performed By: #### C LUIS, BMP #### [facility] ([id number]) [address], [address] [place] [address] Basophils/100 WBC (Bld) 0.3 % Normal [facility] Comment on above: Performed By: #### C LUIS, BMP #### [facility] ([id number]) [address] [place] [address] Eosinophils (Bld) [#/Vol] 0.5 10*3/uL High 0.0-0.4 [facility] Comment on above: Performed By: #### C LUIS, BMP #### [facility] ([id number]) [address] [place] [address] Eosinophils/100 WBC (Bld) 6.1 % Normal [facility] Comment on above: Performed By: #### C BCA, BMP #### [facility] ([id number]) [address], [address] [place] [address] Erythrocyte distribution width (RBC) [Ratio] 19.2 % High 11.5-15.0 [facility] Comment on above: Performed By: #### C BCA, BMP #### [facility] ([id number]) [address] [place] [address] Hematocrit (Bld) [Volume fraction] 25.0 % Low 35-47 [facility] Comment on above: Performed By: #### C LUIS, BMP #### [facility] ([id number]) [address], [facility] [address] [place] [address] Hemoglobin (Bld) [Mass/Vol] 8.6 g/dL Low 11.7-15.5 [facility] Comment on above: Performed By: #### C LUIS, BMP #### [facility] ([id number]) [address] [address] Lymphocytes (Bld) [#/Vol] 1.6 10*3/uL Normal 1.0-3.5 [facility] Comment on above: Performed By: #### C LUIS, BMP #### [facility] ([id number]) [address] [address] [place] [address] Lymphocytes/100 WBC (Bld) 20.1 % Normal [facility] Comment on above: Performed By: #### C LUIS, BMP #### [facility] ([id number]) [address], [facility] [address] [place] [address] MCH (RBC) [Entitic mass] 31.8 pg Normal 27-34 [facility] Comment on above: Performed By: #### C LUIS, BMP #### [facility] ([id number]) [address] [address] [place] [address] MCHC (RBC) [Mass/Vol] 34.5 g/dL Normal 32-36 [facility] Comment on above: Performed By: #### C BCA, BMP #### [facility] ([id number]) [address] [address] [place] [address] MCV (RBC) [Entitic vol] 92 fL Normal 80-100 [facility] Comment on above: Performed By: #### C BCA, BMP #### [facility] ([id number]) [address] [place] [address] Monocytes (Bld) [#/Vol] 1.0 10*3/uL High 0-0.9 [facility] Comment on above: Performed By: #### C BCA, BMP #### [facility] ([id number]) [address] [place] [address] Monocytes/100 WBC (Bld) 12.4 % Normal [facility] Comment on above: Performed By: #### C LUIS, BMP #### [facility] ([id number]) [address], [address] [place] [address] Neutrophils/100 WBC (Bld) 61.1 % Normal [facility] Comment on above: Performed By: #### C LUIS, BMP #### [facility] ([id number]) [address], [address] [place] [address] Platelet mean volume (Bld) [Entitic vol] 8.5 fL Normal 7-12 [facility] Comment on above: Performed By: #### C LUIS, BMP #### [facility] ([id number]) [address], [address] [place] [address] Platelets (Bld) [#/Vol] 150 10*3/uL Normal 150-450 [facility] Comment on above: Performed By: #### C LUIS, BMP #### [facility] ([id number]) [address] [place] [address] RBC COUNT 2.72 X10E12/L Low 3.80-5.20 [facility] Comment on above: Performed By: #### C BCA, BMP #### [facility] ([id number]) [address], [address] [place] [address] WBC (Bld) [#/Vol] 7.9 10*3/uL Normal 4.0-11.0 [facility] Comment on above: Performed By: #### C BCA, BMP #### [facility] ([id number]) [address] [place] [address] BASIC METABOLIC PANLon 05-30 Anion gap [Moles/Vol] 10 mmol/L Normal 5-15 [facility] Comment on above: Performed By: #### B MP, CBC #### [facility] ([id number]) [address] [place] [address] Calcium [Mass/Vol] 7.6 mg/dL Low 8.5-10.5 [facility] Comment on above: Performed By: #### B MP, CBC #### [facility] ([id number]) [address], [address] [place] [address] Chloride [Moles/Vol] 95 mmol/L Low 98-109 [facility] Comment on above: Performed By: #### B MP, CBC #### [facility] ([id number]) [address] [place] [address] CO2 [Moles/Vol] 29 mmol/L Normal 22-32 [facility] Comment on above: Performed By: #### B MP, CBC #### [facility] ([id number]) [address] [place] [address] Creatinine [Mass/Vol] 5.01 mg/dL High 0.40-1.00 [facility] Comment on above: Result Comment: METH OD TRACEABLE TO IDMS STANDARD Performed By: #### B MP, CBC #### [facility] ([id number]) [address] [place] [address] GFR/1.73 sq M.predicted among non-blacks MDRD (S/P/Bld) [Vol rate/Area] 9 mL/min/{1.73_m2} Low >59 [facility] Comment on above: Result Comment: Reported eGFR is based on the CKD-EPI 2020 equation that does not use a race coefficient. Performed By: #### B MP, CBC #### [facility] ([id number]) [address] [place] [address] Glucose [Mass/Vol] 95 mg/dL Normal 65-99 [facility] Comment on above: Performed By: #### B MP, CBC #### [facility] ([id number]) [address], [address] [place] [address] Potassium [Moles/Vol] 3.7 mmol/L Normal 3.5-5.0 [facility] Comment on above: Performed By: #### B JO ANN, CBC #### [facility] ([id number]) [address], [address] [place] [address] Sodium [Moles/Vol] 134 mmol/L Normal 134-146 [facility] Comment on above: Performed By: #### B JO ANN, CBC #### [facility] ([id number]) [address], [address] [place] [address] Urea nitrogen [Mass/Vol] 40 mg/dL High 5-27 [facility] Comment on above: Performed By: #### B JO ANN, CBC #### [facility] ([id number]) [address] [address] [place] [address] COMPLETE BLOOD COUNTon 05-30 Erythrocyte distribution width (RBC) [Ratio] 17.7 % High 11.5-15.0 [facility] Comment on above: Performed By: #### B MP, CBC #### [facility] ([id number]) [address] [address] [place] [address] Hematocrit (Bld) [Volume fraction] 16.9 % Low 35-47 [facility] Comment on above: Performed By: #### B MP, CBC #### [facility] ([id number]) [address], [address] [place] [address] Hemoglobin (Bld) [Mass/Vol] 5.8 g/dL Critically low 11.7-15.5 [facility] Comment on above: Performed By: #### B MP, CBC #### [facility] ([id number]) [address], [address] [place] [address] MCH (RBC) [Entitic mass] 33.5 pg Normal 27-34 [facility] Comment on above: Performed By: #### B MP, CBC #### [facility] ([id number]) [address], [address] [place] [address] MCHC (RBC) [Mass/Vol] 34.7 g/dL Normal 32-36 [facility] Comment on above: Performed By: #### B MP, CBC #### [facility] ([id number]) [address] [place] [address] MCV (RBC) [Entitic vol] 97 fL Normal 80-100 [facility] Comment on above: Performed By: #### B MP, CBC #### [facility] ([id number]) [address] [place] [address] Platelet mean volume (Bld) [Entitic vol] 8.8 fL Normal 7-12 [facility] Comment on above: Performed By: #### B MP, CBC #### [facility] ([id number]) [address], [address] [place] [address] Platelets (Bld) [#/Vol] 136 10*3/uL Low 150-450 [facility] Comment on above: Performed By: #### B MP, CBC #### [facility] ([id number]) [address] [place] [address] RBC COUNT 1.75 X10E12/L Low 3.80-5.20 [facility] Comment on above: Performed By: #### B MP, CBC #### [facility] ([id number]) [address] [place] [address] WBC (Bld) [#/Vol] 7.1 10*3/uL Normal 4.0-11.0 [facility] Comment on above: Performed By: #### B MP, CBC #### [facility] ([id number]) [address] [place] [address] IR ANGIO EXTREMITY LTon 03-2 IR ANGIO [...] total sedation time of 180 minutes of wptu-cv-bcwm moderate sedation was provided by the same personnel. Following the procedure, the patient was recovered according to the moderate sedation policy. ANESTHESIA: 10 mL of 1% lidocaine were used for skin and subcutaneous tissue local anesthesia. TIME OUT: Manning Protocol Time Out Verification performed. PROCEDURE: Automatic [...] the wire and placed a short 5 Ukrainian sheath. Contrast was injected, refluxing downstream and [...] across the stenosis and dilated. A 4 Ukrainian catheter was advanced through the sheath over [...] raise suspicion (more content not included)... Normal [facility] POTASSIUMon 02-25-2023 Potassium [Moles/Vol] 5.4 mmol/L High 3.5-5.0 [facility] Comment on above: Performed By: #### 2 823-3 #### [facility] ([id number]) [address], [address] [place] [address] MRI SHOULDER LT WO CONon MRI SHOULDER [...] HYALINE CARTILAGE: Complete loss of cartilage with dhgo-gg-jssg articulation between the humeral head and glenoid, [...] by: BANDAR SHOOK Date: 2022-07-05 07:38 Normal [facility] MG MAMM SCREEN SAMAN W CADon 0 05-10-2022 MG MAMM SCREEN SAMAN W CAD Patient: DONNA MATHEWS Exam Date: 05/10/2022 : 1960 Gender:F Ordering : MRS. 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 LOCATION: [facility] BREAST COMPOSITION: Heterogeneously dense,which may obscure small [...] MD on 05/11/2022 at 12:31 Normal [facility] XR DEXA BONE DENSITYon 05-10 [...] EL SAUNDERS Date: 2022-05-10 16:17 Normal [facility] MRI BRAIN WO W CONon 023 MRI [...] BANDAR SHOOK Date: 2022-04-13 07:38 Normal [facility] BUNon 04-12-2022 Urea nitrogen [Mass/Vol] 37.0 mg/dL Critically high 7.0-18.0 [facility] Comment on above: Performed By: #### C KRIS, BUN #### [facility] [address] [address] [address] Ellen Layne CREATININEon 04-12-2022 Creatinine [Mass/Vol] 1.79 mg/dL Critically high 0.55-1.02 [facility] Comment on above: Performed By: #### C KRIS, BUN #### [facility] [address], [place] [address] Dr. Ellen Layne EGFR-AF IRISH 35 mL/min/1.73m2 Critically low >=60 [facility] Comment on above: Performed By: #### C KRIS, BUN #### [facility] [address], [place] [address] Dr. Ellen Layne EGFR-NON AF IRISH 29 mL/min/1.73m2 Critically low >=60 [facility] Comment on above: Performed By: #### C KRIS, BUN #### [facility] [address] [place], [place] [address] Dr. Ellen Layne Gastroenterology Office/Clin ic Noteon 05-18-2021 Gastroenterology Office/Clinic Note Chief Complaint ref by [facility]- abnormal labs HPI Staff This is a 60 year old female who presents today for a referral by [facility] for complaints of abnormal renal labs. History [...] after patient or guardian consented to allow [employer] to record this visit. 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 ANABELLE: [...] mg= 1 tab(s), Oral, Daily Vitamin D, 44[address] International_Unit, Oral, qWeek Zanaflex 4 mg Tab, 4 mg= 1 tab(s), Oral, Daily Zinbryta, 150 mg, SubCutaneous, qMonth Allergies No Known Allergies Social History Alcohol - Denies Alcohol Use, 10/19/2010 Past, 10/19/2010 Substance Abuse - Denies Substance Abuse, (more content not included)... Normal [facility] Comment on above: Result Comment: Elec tronically [...] longer receiving treatment for. DVT Osteopenia Normal [facility] 08-22-2020 [facility] Telephone (ROSANNE) DONNA MATHEWS ([id number]) 1960 F Date Time Provider Department 08/22/20 QUINTEN LEWIS During your visit today, we recorded the following information about you: Shahrzad Hannah Pss 08/22/2020 2:27 PM Signed Patient calling in regards to the [employer] that provider advise patient call. States she ordered shoes and its been over a month but lost their number and has no way of getting in touch with them. Patient is requesting a call at [phone] Please advise. lAize Patton 08/23/2020 1:19 PM Signed Replied with phone number via my chart. Allergies As of Date: 08/22/2020 (No Known Allergies) Date Reviewed: 07/27/2020 Reviewed by: Alize ([facility]) Abdi - Fully Assessed Reason for Visit: [...] LUTEIN ORAL) Take by mouth. - Fish Oil-[place]-3 Fatty Acids (FISH OIL) 340-1,000 mg cap [...] Encounter Status:Closed by SHAHRZAD DONIS on 07/04/21 [facility] CNOVon 07-27-2020 CNOV Office Visit (LOORRM ) DONNA MATHEWS ([id number]) 1960 F Date Time Provider Department 07/27/20 [...] Date Reviewed: 07/27/2020 Reviewed by: Alize [facility] - Fully Assessed Reason for Visit: Neuropathy [...] Encounter Status:Closed by QUINTEN LEWIS on 07/28/20 [facility] C Urineon 06-06-2018 C Urine urine [...] Vanc S 1 Verified Normal [facility] [place] Comment on above: Performed By: #### [id number] #### [facility] (DEFAULT) [address] [place] [address] Coding Summaryon 06-05-2018 Coding Summary CODING DATE: 06/05/2018 [facility] STATUS: Home PAYOR: Medicare [facility] APC DESCRIPTION 5372 Level 2 Urology and Related Services ADMIT DX: REASON FOR VISIT DX: R32 Unspecified urinary incontinence FINAL DX: PRINCIPAL: R32 Unspecified urinary incontinence SECONDARY: R93.41 Abnormal radiologic findings on diagnostic imaging of renal pelvis, ureter, or bladder G35 Multiple sclerosis N32.89 Other specified disorders of bladder PYMT PROC APC STAT DESCRIPTION DOCTOR NAME DATE 48486 5372 T Cystourethroscopy David Gonsales MD 06/03/2018 (separate procedure) NOTE: The code number assigned matches the documented diagnosis and / or procedure in the patient's chart. However, the narrative phrase printed from the coding software may appear abbreviated, or result in slightly different terminology. Coded By: Jessica Valiente Date Saved: 06/05/2018 07:20 am Normal [facility] [place] History and Physicalon 06-05 History and Physical [id number]#1.0 [facility] Consent Formson 06-04-2018 Consent Forms [id number]#1.00 [facility] Outside Recordson 06-04-2018 Outside Records [id number]#1.00 [facility] Provider Orderson 06-04-2018 Protein mass conc [id number] [facility] Inpatient Patient Summaryon 06-03-2018 Inpatient Patient Summary [facility] [address] [place] [address] Patient Discharge Instructions Name: DONNA MATHEWS : 62 Patient Address: [address] [place] [address] Primary Care Provider: Name: Harjit Lopez MD After you are discharged if you find you have any questions, please, call [phone] ext [phone] to speak to a nurse. Discharge Diagnosis: [...] or sign any legal documents [facility] would like to thank you for allowing us to assist you with your healthcare needs. The following includes patient education materials and information regarding your injury/illness. DONNA MATHEWS has been given the following list of follow-up instructions, prescriptions, and patient education materials: Follow-up Instructions With: Address: When: David Gonsales [address], [address] [place], [place] [id number] Business (1) With: Address: When: Harjit Lopez [address] [place] [address] Business (1) Medications During the course [...] for Disease Control and Prevention November 2013 [facility] MAGR Intraoperative Recordon 06-03-2018 MAGR Intraoperative Record MAGR Intra-Op Record Summary Primary Physician: David Gonsales MD Finalized Date/Time: 06/03/18 16:22:13 Pt. Name: DONNA MATHEWS Nelly /Sex: 1960 FEMALE Med Rec #: [id number] Physician: David Gonsales MD Financial #: [id number] Pt. Type: D Room/Bed: / Admit/Disch: 06/03/18 [...] Linda M Role Performed Surgeon - Primary Brass And Wind Instrument Repairer Scrub Personnel Time In 06/03/18 15:45:00 06/03/18 [...] Wound Class Clean-Contaminated Last Modified By: Irlanda Konx RN 06/03/18 16:03:25 Post-Care Text: O.730 The [...] MHBLONG Modify Pick List Normal [facility] MAGR Preoperative Recordon 0 06-03-2018 MAGR Preoperative Record MAGR Pre-Op Record Summary Primary Physician: David Gonsales MD Finalized Date/Time: 06/03/18 15:51:38 Pt. Name: DONNA MATHEWS/Sex: 1960 FEMALE Med Rec #: [id number] Physician: David Gonsales MD Financial #: [id number] Pt. Type: D Room/Bed: / Admit/Disch: 06/03/18 [...] Signed By: Irlanda Knox RN 06/03/18 15:51 [facility] Patient Handouton 06-03-2018 Patient Handout [facility] Progress Note - Nurseon 05-10 Protein mass conc Talked with Yesenia @ [facility], instructed to have pt here @ 1030 on 06-03-18 and to fax Med. list-verbalized understanding. [Electronically Signed on: 06/02/2018 10:58 EDT] Cherise Espinoza RN [Verified on: 06/02/2018 10:58 EDT] Cherise Espinoza RN [facility] Vital Signs Date Time Vital Sign Value Performing Clinician Facility 05-02-2023 12:12-0500 Body height 167.6 cm Krystin Salcedo MD Work Phone: [email or web address] 05-02-2023 12:12-0500 Body mass index (BMI) [Ratio] 47.64 kg/m2 Krystin Salcedo MD [email or web address] 05-02-2023 12:12-0500 Body weight 133.81 kg Krystin Salcedo MD [email or web address] 05-02-2023 12:12-0500 Diastolic blood pressure 70 mm[Hg] Krystin Salcedo MD Work Phone: [facility] 05-02-2023 12:12-0500 Systolic blood pressure 138 mm[Hg] Krystin Salcedo MD [email or web address] 01-24-2021 09:20-0500 Body height 170.18 cm Kendell Garcia Other [employer] Other 01-24-2021 09:20-0500 Body mass index (BMI) [Ratio] 49.17 kg/m2 Kendell Garcia Other [employer] Other 01-24-2021 09:20-0500 Body weight 142.43 kg Kendell Garcia Other [employer] Other 01-24-2021 09:20-0500 Diastolic blood pressure 86 mm[Hg] Kendell Garcia Other [employer] Other 01-24-2021 09:20-0500 Systolic blood pressure 134 mm[Hg] Kendell Garcia Other [employer] Other Encounters Encounter Date Encounter Type Care Provider Facility Start: 10-21-2023 End: 10-21-2023 ambulatory BRANDON BOB [facility] Start: 09-26-2023 End: 09-26-2023 ambulatory HONORIO MAY Not Available Start: 09-19-2023 End: 10-10-2023 ambulatory ANDRE GRAVES [facility] Start: 08-16-2023 End: 08-16-2023 ambulatory TODD Garza [facility] Start: 08-01-2023 End: 08-01-2023 ambulatory KRYSTIN Vega [facility] Start: 07-12-2023 End: 07-12-2023 ambulatory GABRIELLE CONTRERAS [facility] Start: 07-08-2023 End: 07-09-2023 ambulatory Fausto Vasquez MD Facility:[facility] Start: 06-18-2023 End: 06-18-2023 ambulatory ADDIS WISE [facility] Start: 06-14-2023 End: 06-14-2023 ambulatory KRYSTIN Vega [facility] Start: 06-03-2023 End: 06-03-2023 ambulatory KRYSTIN Vega [facility] Start: 05-31-2023 End: 06-02-2023 ambulatory TODD Garza [facility] Start: 05-31-2023 End: 06-02-2023 ambulatory AMY YAÑEZ [facility] Start: 05-30-2023 End: 06-01-2023 ambulatory KRYSTIN Vega [facility] Start: 05-02-2023 End: 05-02-2023 ambulatory EDGEWATER Silvia [facility] Start: 05-02-2023 End: 05-02-2023 Postop follow up visit related to original px Krystin Salcedo MD Work Phone: [facility] Comment on above: Morbid obesity ([facility]) (Primary Dx); ESRD (end stage renal disease) ([facility]); Arteriovenous fistula stenosis, initial encounter ([facility] Start: 04-17-2023 End: 04-17-2023 ambulatory [facility] Start: 04-12-2023 End: 05-10-2023 ambulatory ANDRE Mello STAR [facility] Start: 04-01-2023 End: 04-01-2023 ambulatory [facility] Start: 03-05-2023 Telephone encounter Elba Ramirez [facility] Start: 02-28-2023 End: 03-11-2023 ambulatory ANDRE GRAVES [facility] Start: 02-25-2023 End: 02-25-2023 Evaluation and management of inpatient ANURAG ISABEL [facility] Start: 02-25-2023 End: 02-25-2023 Evaluation and management of inpatient KRYSTIN SALCEDO [facility] Start: 02-19-2023 End: 02-19-2023 ambulatory Rosina Fink Facility:[facility] Start: 07-04-2022 End: 07-05-2022 ambulatory NARENDRANATH [...] 02-21-2021 End: 02-21-2021 ambulatory Kendell Garcia Other [employer] Other Start: 02-21-2021 Telephone encounter Kendell Garcia [facility] Coord[facility] Start: 01-24-2021 End: 01-24-2021 ambulatory Kendell Garcia Other [employer] Other Start: 01-24-2021 Office outpatient ne w 45 minutes Kendell Garcia [facility] Start: 08-22-2020 Telephone encounter José Lewis DPM Work Phone: Orthopaedics Comment on above: Question Start: 07-09-2018 End: 07-09-2018 Patient encounter procedure DAVID GONSALES [facility] Start: 06-03-2018 End: 06-26-2018 Patient encounter procedure David Gonsales Facility:[facility] Procedures Date Procedure Procedure Detail Performing Clinician Start: 10-21-2023 Follow-up visit Follow-up BRANDON BOB Start: 09-13-2022 Adult depression scr eening assessment Elba Hernandez Start: 07-09-2018 DISCHARGE PATIENT MARTIN GONSALES Plan of Treatment Date Care Activity Detail Author Start: 12-08-2028 Subsequent hospital visit by physician 12/08/2028 7:37 AM EDT [facility] [address] [address] Harjit Lopez MD [address] [place] [address] Chronic kidney disease (Primary Dx); Anemia; Multiple sclerosis (CMS-HCC); CKD (chronic kidney disease) Discharge Disposition: Home [facility] Comment on above: Chronic kidney disea se (Primary Dx); Anemia; Multiple sclerosis (CMS-HCC); CKD (chronic kidney disease) Start: 01-24-2025 LIPID SCREEN LIPID SCREEN [facility] Start: 05-02-2024 Adult BMI Screening Adult BMI Screen ing [facility] Start: 05-02-2024 Tobacco Screening Tobacco Screening [facility] Start: 02-26-2024 Adult BMI Screening Adult BMI Screen ing [employer] Start: 02-26-2024 Tobacco Screening Tobacco Screening [facility] Start: 09-14-2023 Depression Screening Depression Scre ening [facility] Start: 05-09-2023 End: 05-09-2023 Patient encounter procedure 05/09/2023 1:30 PM EST Office Visit [facility] [address] [place] [address] Ivette Sanchez, EXPENSE ANALYST-ROBOTICS SYSTEMS ENGINEER [address] [place] [address] [facility] Start: 05-02-2023 End: 05-02-2024 RFA Lower extremity vessels - left Views W contrast IR angiography extremity left Imaging Routine Morbid obesity ([facility]) ESRD (end stage renal disease) ([facility]) Arteriovenous fistula stenosis, initial encounter ([facility]) Expected: 05/02/2023, Expires: 05/02/2024 [facility] Work Phone: Comment on above: Expected: 05/02/2023 , Expires: 05/02/2024 Start: 03-25-2023 End: 03-25-2023 Patient encounter procedure 03/25/2023 2:10 PM EST Office Visit [facility] [address] [place] [phone] Alvaro Howard MD [address] [place] [address], [address] [place] [address] [facility] Start: 11-09-2022 COVID-19 Vaccine ( season) COVID-19 Vaccine ( season) [facility] Start: 11-09-2022 Influenza vaccination Influenza Vacc ine [facility] Start: 11-09-2021 Influenza vaccination INFLUENZ A (Season Ended) [facility] Start: 08-28-2020 COVID-19 VACCINE (3 - Booster for Pfizer series) COVID-19 VACCINE (3 - Booster for Pfizer series) [facility] Start: 05-25-2017 DIABETES SCREEN DIABETES SCREEN [facility] Start: 10-26-2011 Administration of varicella zoster vaccine Zoster (Shingles) Vaccine (1 of 2) [facility] Start: 10-26-2011 SHINGRIX VACCINE (1 of 2) SHINGRIX VACCINE (1 of 2) [facility] Start: 2006 COLOGUARD (FIT-DNA) COLOGUARD (FIT-D NA) [facility] Start: 2006 Colonoscopy COLONOSCOPY [facility] Start: 2006 COLORECTAL CANCER SCREENING COLORECTAL CANCER SCREENING [facility] Start: [address] COLONOGRAPHY [facility] Start: 2006 FECAL OCCULT BLOOD FECAL OCCULT BLOO D [facility] Start: 2006 SIGMOIDOSCOPY SIGMOIDOSCOPY [facility] Start: 2001 Mammography MAMMOGRAM [facility] Start: 10-26-1991 HPV TESTING HPV TESTING [facility] Start: 1982 PAP TESTING PAP TESTING [facility] Start: 1982 Screening for malign ant neoplasm of cervix Pap Smear [facility] Start: 1980 DTaP,Tdap and Td Vaccines (1 - Tdap) DTaP,Tdap and Td Vaccines (1 - Tdap) [facility] Start: 1980 Urine microalbumin profile DTAP,TDAP,TD (1 - Tdap) [facility] Start: 10-26-1979 Adult BMI Follow Up Plan Adult BMI Follow Up Plan [facility] Start: 10-26-1979 HEPATITIS C SCREENING HEPATITIS C SC REENING [facility] Start: 10-26-1979 HIV SCREENING HIV SCREENING [facility] Start: 1973 Adult depression screening assessment DEPRESSION SCREENING [facility] Immunizations Immunization Date Immunization Notes Care Provider Sandeep parra 11-03-2018 influenza, injectabl e, quadrivalent, preservative free [facility] 11-03-2018 influenza virus vaccine, unspecified formulation [facility] 10-14-2018 influenza, injectabl e, quadrivalent, preservative free [facility] 08-11-2018 influenza, injectabl e, quadrivalent, preservative free [facility] 12-22-2017 pneumococcal polysaccharide vaccine, 23 valent [facility] 11-09-2016 influenza, injectabl e, quadrivalent, preservative free [facility] 12-09-2012 pneumococcal polysaccharide vaccine, 23 valent Quinten Lewis DPM Work Phone: [facility] Payers Date Payer Category Payer Self-pay [id number] 2023 Private Health Insurance [facility] PLUS [id number] 2023-Present [phone] [address] [address] [place] [address] [id number] 2022 Medicare [id number] [id number]. [id number] 2020 Medicaid MEDICAID [facility] MEDICAID [id number] 2020-Present [phone] [address] [place] [address] Medicaid [id number] 2017 Medicaid [id number] [id number]. [id number] 2002 Medicare MEDICARE MEDICAR E A AND B [id number] 2002-Present [phone] [place] [address] Medicare [id number]. [id number] 1961 Unknown [id number] 2.16.840.1.366027.3.579.2. 718 1961 Unknown [id number] 2.16.840.1.572728.3.579.2. 177 1961 Unknown [id number] 2.16.840.1.998017.3.579.2. 593 1960 Unknown [id number] 2.16.840.1.529081.3.579.2. 593 1961 Unknown [id number] 2.16.840.1.222085.3.579.2. 593 1961 Unknown [id number] 2.16.840.1.930026.3.579.2. 593 1961 Unknown [id number] 2.16.840.1.657938.3.579.2. 593 1961 Unknown [id number] 2.16.840.1.832672.3.579.2. 593 1961 Unknown [id number] 2.16.840.1.593110.3.579.2. 593 1961 Unknown [id number] 2.16.840.1.209823.3.579.2. 593 1961 Unknown [id number] 2.16.840.1.787874.3.579.2. 593 1961 Unknown [id number] 2.16.840.1.868158.3.579.2. 593 1961 Unknown [id number] 2.16.840.1.062066.3.579.2. 593 1961 Unknown [id number] 2.16.840.1.310027.3.579.2. 1286 1961 Unknown [id number] 2.16.840.1.858297.3.579.2. 196 1961 Unknown [id number] 2.16.840.1.396635.3.579.2. 1286 1961 Unknown [id number] 2.16.840.1.210850.3.579.2. 1286 1961 Unknown [id number] 2.16.840.1.508824.3.579.2. 1286 1961 Unknown [id number] 2.16.840.1.340612.3.579.2. 1286 1961 Unknown [id number] 2.16.840.1.908325.3.579.2. 1286 1961 Unknown [id number] 2.16.840.1.655394.3.579.2. 1286 1961 Unknown [id number] 2.16.840.1.755054.3.579.2. 1286 1961 Unknown [id number] 2.16.840.1.464318.3.579.2. 1286 1961 Unknown [id number] 2.16.840.1.644427.3.579.2. 1286 1961 Unknown [id number] 2.16.840.1.700343.3.579.2. 1286 1961 Unknown [id number] 2.16.840.1.825286.3.579.2. 128 1961 Unknown [id number] 2.16.840.1.538271.3.579.2. 1285 1961 Unknown [id number] 2.16.840.1.840353.3.579.2. 1259 1961 Unknown [id number] 2.16.840.1.250220.3.579.2. 1285 1961 Unknown [id number] 2.16.840.1.661315.3.579.2. 1286 1961 Unknown [id number] 2.16.840.1.617498.3.579.2. 1285 1961 Unknown [id number] 2.16.840.1.150633.3.579.2. 1286 1961 Unknown [id number] 2.16.840.1.810672.3.579.2. 1285 1961 Unknown [id number] 2.16.840.1.371893.3.579.2. 1286 1959 Medicaid [id number] 1959 Medicare [id number] 1959 Medicare [id number] Private Health Insurance [facility] [id number] Unknown [id number] 2.16.840.1.714012.3.579.2. 531 Social History Date Type Detail Facility Start: 03-27-2013 End: 09-13-2022 Tobacco smoking status NHIS Never smoked tobacco [facility] Start: 03-27-2013 End: 09-13-2022 Tobacco use and exposure Smokeless tobacco non-user [facility] Start: 05-05-2014 Alcohol intake Current drinke r of alcohol (finding) [facility] Start: 03-27-2013 History SDOH Alcohol Comment Occasional [facility] Start: 1960 Sex Assigned At Not on file [facility] Start: 06-27-2020 End: 07-27-2020 Exposure to SARS-CoV-2 (event) Not sure [facility] Start: 03-22-2020 End: 09-13-2022 Sex Assigned At [facility] [employer] Other Start: 02-26-2023 End: 05-02-2023 Alcohol intake Ex-drinker (finding) [facility] Start: 03-22-2020 End: 09-13-2022 History of Social function [facility] How often to you hav e a drink containing alcohol? Monthly or less [facility] How many standard drinks containing alcohol do you have on a typical day? 1 or 2 [facility] How often do you hav e 6 or more drinks on 1 occasion? Never [facility] Adolescent depressio n screening assessment 0 [facility] Start: 1960 Sex Assigned At Female F [facility] Medical Equipment Procedure Code Equipment Code Equipment Origin al Text Equipment Identifier Dates Graft Bn Canc 30 ml Allgrft - [id number] Start: 05-20-2014 Comment on above: Description: GRAFT B ONE CANC. [employer]ra[employer]Ni[employer] Implant - [id number] Start: 10-01-2013 Comment on above: Description: Tashu m Spiral Blade Tuk-El-M-Kind Implant - [id number] Start: 05-20-2014 Comment on above: Description: 4.5 mm VA-LCP plate, C1713 PLATE Xgz-Fd-W-Kind Implant - [id number] Start: 05-20-2014 Comment on above: Description: 5.0 x 3 4mm locking screw, C1713 SCREW Tln-Rg-K-Kind Implant - [id number] Start: 05-20-2014 Comment on above: Description: 5.0 mm x 60mm locking screw, C1713 Pvj-Ty-Y-Kind Implant - [id number] Start: 05-20-2014 Comment on above: Description: 5.0 mm x 65mm locking screw, C1713 SCREW Qaf-Gt-Y-Kind Implant - [id number] Start: 05-20-2014 Comment on above: Description: 5.0 mm x 70 mm locking screw, C1713 SCREW Nail 12mm 380mm Fem Nlex Im - [id number] Start: 10-01-2013 Comment on above: Description: C1713 N AIL 12MM 380MM FEM NLEX IM Cap End 0mm Fem Ext Strdr Rcs - [id number] Start: 10-01-2013 Screw Bn 5mm 44m m Nlex Ti Ft - [id number] Start: 10-01-2013 Screw Bn 5mm 40m m Nlex Ti Ft - [id number] Start: 10-01-2013 Screw Bn 5mm 66m m Nlex Ti Fem - [id number] Start: 10-01-2013 Comment on above: Description: C1713 S CREW BN 5MM 66MM NLEX TI FEM Screw Bn 4.5mm 40mm Lcp Ss - [id number] Start: 05-20-2014 Screw Bn 4.5mm 42mm Lcp Ss - [id number] Start: 05-20-2014 Screw Bn 4.5mm 46mm Lcp Ss - [id number] Start: 05-20-2014 Screw Bn 4.5mm 32mm Lcp Ss - [id number] Start: 05-20-2014 Screw Bn 4.5mm 34mm Lcp Ss - [id number] Start: 05-20-2014 Screw Bn 4.5mm 36mm Lcp Ss - [id number] Start: 05-20-2014 Screw Bn 4.5mm 38mm Lc Dcp [facility] - [id number] Start: 05-20-2014 Set Cth 24cm 14f r 18ga Str Triniflex Splt3 Bsc Intro Ndl Gw Rpl [id number] - [id number])[id number] [id number], [id number] FDA Start: 09-07-2022 Clinical Notes [...] without immediate complication without imaging Finalized by Vci Nickerson MD on 08/16/2023 2:53 PM [facility] 05-02-2023 History of Presen t illness [...] Clinical Indications: ESRD (end stage renal disease) ([facility]) [N18.6 (ICD-10-CM)], A-V fistula ([facility]) [I77.0 (ICD-10-CM)] Interpreting Physicians Performing Staff Roseanne [...] all orders for this visit: Morbid obesity ([facility]) ESRD (end stage renal disease) ([facility]) Arteriovenous fistula stenosis, initial encounter ([facility]) Plan Plan Will arrange for fistula g [...] week. Patient will need to travel from [facility]. Their phone number is [phone]. documented in this encounter [facility] 03-05-2023 Miscellaneous Notes DARY CALLED TO CANCEL SHE DOES NOT WANT TO RESCHEDULE AT THIS TIME documented in this encounter [facility] 03-05-2023 Telephone encounter Note DARY CALLED TO CANCEL SHE DOES NOT WANT TO RESCHEDULE AT THIS TIME [facility] 06-08-2022 Note PROCEDURE: XR SHOULD ER LT 2V or > COMPARISON: None. HISTORY: Tear of left rotator cuff FINDINGS: BONES:No acute fracture or dislocation. Moderate acromioclavicular joint osteoarthropathy. Severe glenohumeral joint osteoarthritis SOFT TISSUES:Negative. No visible soft tissue swelling. EFFUSION:None visible. OTHER: Negative. IMPRESSION: Moderate to severe osteoarthritis Electronically authenticated by: EL SAUNDERS Date: 2022-06-08 07:41 [facility] 06-07-2022 Note CONSULTATION CONSULTATION DATE: 06/07/2022 [...] our patients to inform us about any zdeh-jtg-wvalwxy medications or herbal remedies/nutritional supplements/alternative remedies. 2. [...] options with their primary care provider. [facility] 04-12-2022 Note CONSULTATION CONSULTATION DATE: 04/12/2022 HISTORY [...] Patient is in agreement to this. [facility] 01-25-2022 Note CONSULTATION CONSULTATION DATE: 01/25/2022 HISTORY [...] does take multiple medications that affect her DIRECTOR TRUST, so this is a possible reason of [...] continues to answer my questions appropriately. [facility] 10-31-2021 Note CONSULTATION CONSULTATION DATE: 10/31/2021 CHIEF [...] flexion and abduction of the left shoulder. 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 The patient [...] Kenia Beck but unable to verify) [facility] 10-31-2021 Note CONSULTATION PROCEDURE DATE: 10/31/2021 PREOPERATIVE [...] up in the office as needed. [facility] 10-18-2021 Note CONSULTATION CONSULTATION DATE: 10/18/2021 This is a 60-year-old female with a history of MS who resides in a senior care facility. She is following up for a [...] agrees with this plan of care. [facility] 07-27-2021 Note CONSULTATION CONSULTATION DATE: 07/27/2021 This [...] PLAN: An order was written for the senior care facility to apply menthol heat rub twice [...] of care and all questions were answered. [facility] Signed and Approved by: ABHINAV IGNACIO . 07/31/2021 15:07:00 [facility] 01-24-2021 Evaluation note Encounter Date Diagnosis Assessment [...] her ability to ambulate very very poor [employer] Other 06-15-2021 Miscellaneous Notes* Telephone Encounter - [...] them. Patient is requesting a call at [phone] Please advise. [facility] NoteHNO ID: [id number] Author: Quinten Lewis DPM Service: ? Author [...] follow-up as needed pending progress. Quinten Lewis, [facility] noteNo InformationNortLifecare [facility] [employer] Other evaluation note* Diagnosis Chronic kidney disease- Primary Chronic kidney disease, unspecified Anemia Unspecified anemia Multiple sclerosis ([facility]) Multiple sclerosis CKD (chronic kidney disease) Chronic kidney disease, unspecified [facility] Morbid obesity ESRD (end stage renal disease) ([facility]) End stage renal disease Arteriovenous fistula stenosis, initial encounter ([facility]) documented in this encounter [facility] [employer] SystemEvaluation noteNo assessment information available [facility] Work Phone: History general Narrative - Reported* Type Description Date Medical History multiple sclerosis Medical History bilateral hearing loss Medical History hypertension Medical History diabetes mallitus Medical History thrombacytopenia Medical History kidney disease Surgical History tubal ligation Surgical History knee replacement 2005 Surgical History Foot Surgery-LEFT 2006,2008,200 9 Hospitalization History See Above [facility] [employer] Other InstructionsNot on filedocumented in this encounter [facility] SystemInstructionsNot on filedocumented in this encounter [employer] SystemReason for visit Narrativereferral [facility] radiculopathyN[facility] [employer] Other reason for visit NarrativePain Medicine Referral UpdateBowman Prairie [employer] Other Summary Purpose Family History No Family History Records Found Relationship Condition Age at Onset Recorded Date/T jacqui Not Specified Type 2 diabetes mellitus Unknown Advance Directives No Advanced Directives Records FoundDocuments on File Type Date Recorded Patient Jockey'S Agent Expl anation Advance Directive(s) 12/04/2013 5:55 PM Latest Code Status on File Code Status Date Activated Date Inactivated Comments Full Code 09/13/2022 9:32 AM 09/20/2022 3:29 AM Latest Code Status on File Code Status Date Activated Date Inactivated Comments Full Code 09/13/2022 9:32 AM 09/20/2022 3:29 AM Hospital Course Note [facility] SURGERY Clinical Discharge Summary PERSON INFORMATION Name DONNA MATHEWS Age 57 Years 62 Sex FEMALE Language Kuwaiti PCP Urbano BROWN, Harjit Marital Status Single Med Service Ambulatory Surgery Acct# Arrival 06/03/18 12:10:14 Visit Reason SURGERY - CYSTOSCOPY Acuity LOS 006 05:41 Address: [address] [place] [id number] Comment: PROVIDER INFORMATION VITALS INFORMATION Vital Sign [...] Diagnosis 1 Neck pain (M54.2) Referral Organization [facility] urosurgery Referring Provider First Name Kendell Referring Provider Last Name Radha Referring Provider Specialty Neurologica l Surgery Referred Organization [facility] Referred Provider Jr. Galindo William Referred Address [address],[place],[address] Referred Provider Specialty Pain Medicin e Referral Priority Routine Specialty Diagnoses / Procedures Referred By Laurent talavera Referred To Contact Radiology Diagnoses Morbid obesity ([facility]) ESRD (end stage renal disease) ([facility]) Arteriovenous fistula stenosis, initial encounter ([facility]) Procedures IR angiography extremity left Krystin Salcedo MD [address] [place] [address], [address] [place] [address] Referral ID Status Reason Start Date Expiration Date V isits Requested Visits Authorized [id number] Pending Review 05/02/2023 05/01/2024 1 1 Additional Source Comments INFORMATION SOURCE (unrecogn ized section and content) DATE CREATED AUTHOR 06/26/2018 [facility] DATE CREATED AUTHOR AUTHOR'S ORGANIZ ATION 07/15/2018 [facility] DATE CREATED AUTHOR AUTHOR'S ORGANIZ ATION 06/05/2021 Deny Danielson [facility] DATE CREATED AUTHOR AUTHOR'S ORGANIZ ATION 07/07/2021 [facility] DATE CREATED AUTHOR AUTHOR'S ORGANIZ ATION 07/08/2022 [facility] DATE CREATED AUTHOR AUTHOR'S ORGANIZ ATION 04/02/2023 [facility] DATE CREATED AUTHOR AUTHOR'S ORGANIZ ATION 07/10/2023 [facility] DATE CREATED AUTHOR AUTHOR'S ORGANIZ ATION 08/18/2023 [facility] DATE CREATED AUTHOR AUTHOR'S ORGANIZ ATION 09/03/2023 [facility] DATE CREATED AUTHOR AUTHOR'S ORGANIZ ATION 09/30/2023 [facility] DATE CREATED AUTHOR AUTHOR'S ORGANIZ ATION 10/22/2023 [facility] Source Comments (unrecognize d section and content) In the event this informatio n is protected by the Federal Confidentiality of Alcohol and Drug Abuse Patient Records regulations: The Federal rules restrict any use of the information to criminally investigate or prosecute any alcohol or drug abuse patient.[facility] Reason for Visit (unrecogniz ed section and content) Reason Comments Question Care Teams (unrecognized sec tion and content) Supervisor [place] Department Relationship Specialty Start Date End Date Doug Ornelas MD [address] [place] [address] PCP - General 01/18/04 Christopher Lema Referring Podiatry 03/31/13 Supervisor [place] Department Relationship Specialty Start Date End Date Todd George MD [address] [place] [address] PCP - General Internal Medicine 09/13/22 Supervisor [place] Department Relationship Specialty Start Date End Date Todd George MD [address] [place] [address] PCP - General Internal Medicine 09/13/22 Goals [...] BE BASED ON THE PRIMARY CLINICAL RECORDS. [employer] [facility]. provides no warranty or guarantee of the accuracy or completeness of information in this document.
== END 2023-11-08 13:34 | disposition home or self-care (01) ==
LOC: MRI 13:33
PROVIDERS: PCP Internal Medicine; Visit Provider Nurse Practitioner Family
DX: G35 Multiple sclerosis (principal)
CPT/HCPCS: 70551

== ENCOUNTER 2023-11-25 06:42 | Day surgery (SDC) | payer MEDICARE, MEDICAID, SELFPAY ==
--- OUTSIDE RECORDS SUMMARY | 2023-11-25 06:44 | XMS_ITS | CCD ---
Author Organization [facility] Care Team Providers Care Supervisor [place] Department Name Role Phone David Gonsales Admitting Unavailable David Gonsales Attending Unavailable Harjit Lopez Primary Care Unavailable DAVID GONSALES Admitting Unavailable DAVID GONSALES Attending Unavailable HARJIT LOPEZ Primary Care Unavailable Ceci BROWN, Doug Underwood Primary Care Provider [phone] Christopher Lema Unavailable Kendell Garcia Unavailable [...] vailable LAKSHMIPATHY ., NARENDRANATH Attending Flora vailable LAKSHMIPATHY ., NARENDRANATH Admitting [...] ., NARENDRANATH Admitting Flora vailable LAKSHMIPATHY ., NARENDJOSELITOATH Attending Flora vailable JERMAN, DR PELLETIER Primary [...] Primary Care Provider ZIYAD ULRICH Attending Unavailable GEORGE, TODD B Referring Unavailable [...] Attending Unavailable GEORGE, TODD B Referring Unavailable JERMAN TODD B Primary Care Unavailable JERMAN TODD B Referring Unavailable GEORGE, TODD B Primary Care Unavailable AssiIqrakaria Admitting Unavailable Iqra Mileskaria Attending Unavailable Rosina Fink Attending Unavailab Rosina Figueredo Referring Unavailab kathryn Harjit Lopez Primary Care Unavailable Rosina Fink Admitting Unavailab ANDRE Chopra Attending Unavailable GABRIELLE CONTRERAS Referring Unavailable JERMAN TODD B Primary Care Unavailable ANDRE GRAVES Attending Unavailable GABRIELLE CONTRERAS M Referring Unavailable JERMAN TODD B Primary Care Unavailable BENGABRIELLE Jeffries Referring Unavailable JERMAN TODD B Primary Care Unavailable ANDRE GRAVES Attending Unavailable GABRIELLE CONTRERAS Referring Unavailable JERMAN TODD B Primary Care Unavailable BRANDON BOB Attending Unavailable JERMAN TODD B Referring Unavailable JERMAN TODD B Primary Care Unavailable GABRIELA ZIYAD Referring Unavailable JERMAN TODD B Primary Care Unavailable HONORIO MAY Attending Unavailable HONORIO MAY Attending Unavailable Allergies Allergy Classification Reported Allergen(s) Allergy Type Date of Onset Reaction(s) Facility (1 source) No Known Medication Allergies; Translations: [No Known Medication Allergies] Propensity to adverse reactions to drug (disorder) [facility] Repository Medications Current Medications Medication Drug [...] mouth in the morning. 0 Active calcitriol 0.98823 mg oral capsule (2 sources) Vitamin D3 [...] Start: 09-12-2019 take 1 tablet by attila once daily Cholecalciferol (Vitamin D3) (Vitamin D3) [...] mg oral capsule (1 source) Start: 09-12-19 take 1 capsule by mouth once daily Docusate Sodium (Dok) 100 mg Capsule Active 100 MG PO Daily September 12, 2019 12:00am docusate sodium 50 mg / sennosides, long term 8.6 mg oral tablet (2 sources) Start: 07-12-20 23 take 1 tablet by mouth once [...] venous catheter. 0 08/22/2022 Active lactobacillus acidophilus [id number] unt / pectin 100 mg oral tablet [...] and 1 Application before bedtime. 0 Active [place] 1-Mun-Rik-Fish Oil (Fish Oil) 1,000 mg (120 mg-180 mg) Capsule (1 source) Start: 03-12-19 19 take 2 capsules by mouth once daily [place] 1-Nef-Tlb-Fish Oil (Fish Oil) 1,000 mg (120 mg-180 [...] 150 M G Oral for 15 Active IDANA-LOLIS RX 1-60-300 mg-mg-mcg tablet (1 source) Start: [...] (RENVELA) 800 mg tablet sodium zirconium cyclosilicate 95858 mg powder for oral suspension (1 source) [...] MG Oral for 30 Active Vit C-Vit Z-Lwhhta-Yxc-Om-3 (Ocuvite) 770-06-7-150 op-urdl-sd-mg Capsule (1 source) Start: 03-12-2018 take 1 capsule by mouth once daily Vit C-Vit A-Zarwpg-Frz-Om-3 (Ocuvite) 781-84-6-150 si-vyiv-ht-mg Capsule Active 1 CAP PO Daily March [...] Comment on above: [facility] famotidine 20 mg oral tablet [...] above: Take 1 capsule by mo [facility] once daily. Fish Oil-[place]-3 Fatty Acids (FISH OIL) 340-1,000 mg cap (1 source) Fish Oil-[place]-3 Fatty Acids (FISH OIL) 340-1,000 mg cap [...] 1 tablet by attila th once daily. Jycwbwovcvqy-Pecd-Clf ic Acid (Certavite-Antioxidan t) 18-400 mg-mcg Tablet (1 source) Start: 03-12-19 19 End: 09-12-19 20 take 1 tablet by mouth once daily Rwgypvjaegyl-Aads-Hc lic Acid (Certavite-Antioxida nt) 18-400 mg-mcg Tablet [...] by mouth twice daily. polyethylene glycol 3350 56656 mg powder for oral solution (4 sources) [...] 07-12-2023 Bilirubin Ql (U) Negative Normal NEG [facility] Comment on above: Performed By: #### U A #### [facility] ([id number]) [address] [place] [address] BLOOD/HGB MODERATE Abnormal NEG [facility] Comment on above: Performed By: #### U A #### [facility] ([id number]) [address] [place] [address] 08515 Color (U) YELLOW Normal YELLOW [facility] Comment on above: Performed By: #### U A #### [facility] ([id number]) [address] [place] [address] 59673 Glucose Ql (U) Negative Normal NEG [facility] Comment on above: Performed By: #### U A #### [facility] ([id number]) [address] [place] [address] 51836 Ketones Ql (U) Negative Normal NEG [facility] Comment on above: Performed By: #### U A #### [facility] ([id number]) [address] [place] [address] 22935 Leukocyte esterase Test strip Ql (U) MODERATE Abnormal NEG [facility] Comment on above: Performed By: #### U A #### [facility] ([id number]) [address] [place] [address] 80379 Nitrite Ql (U) Negative Normal NEG [facility] Comment on above: Performed By: #### U A #### [facility] ([id number]) [address] [place] [address] 93988 pH (U) 5.5 [pH] Normal 5.0-8.5 [facility] Comment on above: Performed By: #### U A #### [facility] ([id number]) [address] [place] [address] 23669 Protein Ql (U) 100 mg/dL Abnormal NEG [facility] Comment on above: Performed By: #### U A #### [facility] ([id number]) [address] [place] [address] 21180 R.B.CELLS 10 /hpf High 0-5 [facility] Comment on above: Performed By: #### U A #### [facility] ([id number]) [address] [place] [address] 84918 Specific gravity (U) [Rel density] 1.015 Normal 1.003-1.035 [facility] Comment on above: Performed By: #### U A #### [facility] ([id number]) [address] [place] [address] 01842 SQUAMOUS EPITHELIUM 10 /hpf High 0-5 [facility] Comment on above: Performed By: #### U A #### [facility] ([id number]) [address] [place] [address] [place] [address] TURBIDITY CLOUDY Abnormal CLEAR [facility] Comment on above: Performed By: #### U A #### [facility] ([id number]) [address] [place] [address] 87801 Urobilinogen Qn (U) 0.2 {Victor Manuel'U}/dL Normal <1.1 [facility] Comment on above: Performed By: #### U A #### [facility] ([id number]) [address] [place] [address]9714 W.B.CELLS 60 /hpf High 0-5 [facility] Comment on above: Performed By: #### U A #### [facility] ([id number]) [address] [place] [address] 46709 URINE CULTUREon 07-12-2023 Bacteria identified Cx Nom (U) CULTURE RESULTS MULTIPLE SPECIES PRESENT. PROBABLE COLLECTION CONTAMINATION. SUGGEST REPEAT SPECIMEN. MIXED GRAM POSITIVE AND GRAM NEGATIVE ORGANISMS Normal [facility] Comment on above: Performed By: #### 6 30-4 #### [facility] ([id number]) [address], [address] [place] [address] BASIC METABOLIC PANLon 05-31 Anion gap [Moles/Vol] 10 mmol/L Normal 5-15 [facility] Comment on above: Performed By: #### C BCA, BMP #### [facility] ([id number]) [address], [address] [place] [address] Calcium [Mass/Vol] 7.9 mg/dL Low 8.5-10.5 [facility] Comment on above: Performed By: #### C BCA, BMP #### [facility] ([id number]) [address], [address] [place] [address] Chloride [Moles/Vol] 98 mmol/L Normal 98-109 [facility] Comment on above: Performed By: #### C BCA, BMP #### [facility] ([id number]) [address], [address] [place] [address] CO2 [Moles/Vol] 29 mmol/L Normal 22-32 [facility] Comment on above: Performed By: #### C BCA, BMP #### [facility] ([id number]) [address], [address] [place] [address] Creatinine [Mass/Vol] 3.70 mg/dL High 0.40-1.00 [facility] Comment on above: Result Comment: METH OD TRACEABLE TO IDMS STANDARD Performed By: #### C BCA, BMP #### [facility] ([id number]) [address], [address] [place] [address] GFR/1.73 sq M.predicted among non-blacks MDRD (S/P/Bld) [Vol rate/Area] 13 mL/min/{1.73_m2} Low >59 [facility] Comment on above: Result Comment: Reported eGFR is based on the CKD-EPI 2020 equation that does not use a race coefficient. Performed By: #### C BCA, BMP #### [facility] ([id number]) [address], [address] [place] [address] Glucose [Mass/Vol] 93 mg/dL Normal 65-99 [facility] Comment on above: Performed By: #### C BCA, BMP #### [facility] ([id number]) [address], [address] [place] [address] Potassium [Moles/Vol] 3.9 mmol/L Normal 3.5-5.0 [facility] Comment on above: Performed By: #### C BCA, BMP #### [facility] ([id number]) [address], [address] [place] [address] Sodium [Moles/Vol] 137 mmol/L Normal 134-146 [facility] Comment on above: Performed By: #### C BCA, BMP #### [facility] ([id number]) [address], [address] [place] [address] Urea nitrogen [Mass/Vol] 26 mg/dL Normal 5-27 [facility] Comment on above: Performed By: #### C LUIS, BMP #### [facility] ([id number]) [address], [address] [place] [address] CBC AND AUTO DIFFon 06-01-19 ABSOLUTE BASOPHIL 0.0 X10E9/L Normal 0.0-0.2 [facility] Comment on above: Performed By: #### C LUIS, BMP #### [facility] ([id number]) [address], [address] [place] [address] ABSOLUTE NEUTROPHIL 4.8 X10E9/L Normal 1.5-6.6 [facility] Comment on above: Performed By: #### C LUIS, BMP #### [facility] ([id number]) [address], [address] [place] [address] Basophils/100 WBC (Bld) 0.3 % Normal [facility] Comment on above: Performed By: #### C LUIS, BMP #### [facility] ([id number]) [address], [address] [place] [address] Eosinophils (Bld) [#/Vol] 0.5 10*3/uL High 0.0-0.4 [facility] Comment on above: Performed By: #### C LUIS, BMP #### [facility] ([id number]) [address], [address] [place] [address] Eosinophils/100 WBC (Bld) 6.1 % Normal [facility] Comment on above: Performed By: #### C LUIS, BMP #### [facility] ([id number]) [address], [address] [place] [address] Erythrocyte distribution width (RBC) [Ratio] 19.2 % High 11.5-15.0 [facility] Comment on above: Performed By: #### C LUIS, BMP #### [facility] ([id number]) [address], [address] [place] [address] Hematocrit (Bld) [Volume fraction] 25.0 % Low 35-47 [facility] Comment on above: Performed By: #### C BCA, BMP #### [facility] ([id number]) [address] [place] [address] Hemoglobin (Bld) [Mass/Vol] 8.6 g/dL Low 11.7-15.5 [facility] Comment on above: Performed By: #### C BCA, BMP #### [facility] ([id number]) [address], [address] [place] [address] Lymphocytes (Bld) [#/Vol] 1.6 10*3/uL Normal 1.0-3.5 [facility] Comment on above: Performed By: #### C LUIS, BMP #### [facility] ([id number]) [address], [address] [place] [address] Lymphocytes/100 WBC (Bld) 20.1 % Normal [facility] Comment on above: Performed By: #### C LUIS, BMP #### [facility] ([id number]) [address] [place] [address] MCH (RBC) [Entitic mass] 31.8 pg Normal 27-34 [facility] Comment on above: Performed By: #### C BCA, BMP #### [facility] ([id number]) [address], [address] [place] [address] MCHC (RBC) [Mass/Vol] 34.5 g/dL Normal 32-36 [facility] Comment on above: Performed By: #### C BCA, BMP #### [facility] ([id number]) [address] [place] [address] MCV (RBC) [Entitic vol] 92 fL Normal 80-100 [facility] Comment on above: Performed By: #### C BCA, BMP #### [facility] ([id number]) [address], [address] [place] [address] Monocytes (Bld) [#/Vol] 1.0 10*3/uL High 0-0.9 [facility] Comment on above: Performed By: #### C BCA, BMP #### [facility] ([id number]) [address] [place] [address] Monocytes/100 WBC (Bld) 12.4 % Normal [facility] Comment on above: Performed By: #### C BCA, BMP #### [facility] ([id number]) [address] [place] [address] Neutrophils/100 WBC (Bld) 61.1 % Normal [facility] Comment on above: Performed By: #### C BCA, BMP #### [facility] ([id number]) [address] [place] [address] Platelet mean volume (Bld) [Entitic vol] 8.5 fL Normal 7-12 [facility] Comment on above: Performed By: #### C BCA, BMP #### [facility] ([id number]) [address], [address] [place] [address] Platelets (Bld) [#/Vol] 150 10*3/uL Normal 150-450 [facility] Comment on above: Performed By: #### C BCA, BMP #### [facility] ([id number]) [address] [place] [address] RBC COUNT 2.72 X10E12/L Low 3.80-5.20 [facility] Comment on above: Performed By: #### C BCA, BMP #### [facility] ([id number]) [address] [place] [address] WBC (Bld) [#/Vol] 7.9 10*3/uL Normal 4.0-11.0 [facility] Comment on above: Performed By: #### C BCA, BMP #### [facility] ([id number]) [address] [place] [address] BASIC METABOLIC PANLon 05-30 Anion gap [Moles/Vol] 10 mmol/L Normal 5-15 [facility] Comment on above: Performed By: #### B MP, CBC #### [facility] ([id number]) [address], [address] [place] [address] Calcium [Mass/Vol] 7.6 mg/dL Low 8.5-10.5 [facility] Comment on above: Performed By: #### B MP, CBC #### [facility] ([id number]) [address] [place] [address] Chloride [Moles/Vol] 95 mmol/L Low 98-109 [facility] Comment on above: Performed By: #### B MP, CBC #### [facility] ([id number]) [address] [place] [address] CO2 [Moles/Vol] 29 mmol/L Normal 22-32 [facility] Comment on above: Performed By: #### B MP, CBC #### [facility] ([id number]) [address] [place] [address] Creatinine [Mass/Vol] 5.01 mg/dL High 0.40-1.00 [facility] Comment on above: Result Comment: METH OD TRACEABLE TO IDMS STANDARD Performed By: #### B MP, CBC #### [facility] ([id number]) [address] [place] [address] GFR/1.73 sq M.predicted among non-blacks MDRD (S/P/Bld) [Vol rate/Area] 9 mL/min/{1.73_m2} Low >59 [facility] Comment on above: Result Comment: Reported eGFR is based on the CKD-EPI 2020 equation that does not use a race coefficient. Performed By: #### B MP, CBC #### [facility] ([id number]) [address] [place] [address] Glucose [Mass/Vol] 95 mg/dL Normal 65-99 [facility] Comment on above: Performed By: #### B MP, CBC #### [facility] ([id number]) [address] [facility] [address] [place] [address] Potassium [Moles/Vol] 3.7 mmol/L Normal 3.5-5.0 [facility] Comment on above: Performed By: #### B JO ANN, CBC #### [facility] ([id number]) [address] [place] [address] Sodium [Moles/Vol] 134 mmol/L Normal 134-146 [facility] Comment on above: Performed By: #### B JO ANN, CBC #### [facility] ([id number]) [address] [place] [address] Urea nitrogen [Mass/Vol] 40 mg/dL High 5-27 [facility] Comment on above: Performed By: #### B JO ANN, CBC #### [facility] ([id number]) [address] [address] [place] [address] COMPLETE BLOOD COUNTon 05-30 Erythrocyte distribution width (RBC) [Ratio] 17.7 % High 11.5-15.0 [facility] Comment on above: Performed By: #### B MP, CBC #### [facility] ([id number]) [address] [address] [place] [address] Hematocrit (Bld) [Volume fraction] 16.9 % Low 35-47 [facility] Comment on above: Performed By: #### B MP, CBC #### [facility] ([id number]) [address] [place] [address] Hemoglobin (Bld) [Mass/Vol] 5.8 g/dL Critically low 11.7-15.5 [facility] Comment on above: Performed By: #### B MP, CBC #### [facility] ([id number]) [address] [place] [address] MCH (RBC) [Entitic mass] 33.5 pg Normal 27-34 [facility] Comment on above: Performed By: #### B MP, CBC #### [facility] ([id number]) [address] [place] [address] MCHC (RBC) [Mass/Vol] 34.7 g/dL Normal 32-36 [facility] Comment on above: Performed By: #### B MP, CBC #### [facility] ([id number]) [address] [place] [address] MCV (RBC) [Entitic vol] 97 fL Normal 80-100 [facility] Comment on above: Performed By: #### B MP, CBC #### [facility] ([id number]) [address] [place] [address] Platelet mean volume (Bld) [Entitic vol] 8.8 fL Normal 7-12 [facility] Comment on above: Performed By: #### B MP, CBC #### [facility] ([id number]) [address] [place] [address] Platelets (Bld) [#/Vol] 136 10*3/uL Low 150-450 [facility] Comment on above: Performed By: #### B MP, CBC #### [facility] ([id number]) [address] [place] [address] RBC COUNT 1.75 X10E12/L Low 3.80-5.20 [facility] Comment on above: Performed By: #### B MP, CBC #### [facility] ([id number]) [address] [place] [address] WBC (Bld) [#/Vol] 7.1 10*3/uL Normal 4.0-11.0 [facility] Comment on above: Performed By: #### B MP, CBC #### [facility] ([id number]) [address] [place] [address] IR ANGIO EXTREMITY LTon 03-2 IR ANGIO [...] total sedation time of 180 minutes of jtdc-ye-udxy moderate sedation was provided by the same personnel. Following the procedure, the patient was recovered according to the moderate sedation policy. ANESTHESIA: 10 mL of 1% lidocaine were used for skin and subcutaneous tissue local anesthesia. TIME OUT: [place] Protocol Time Out Verification performed. PROCEDURE: Automatic [...] the wire and placed a short 5 Indonesian sheath. Contrast was injected, refluxing downstream and [...] across the stenosis and dilated. A 4 Indonesian catheter was advanced through the sheath over [...] raise suspicion (more content not included)... Normal [facility] POTASSIUMon 02-25-2023 Potassium [Moles/Vol] 5.4 mmol/L High 3.5-5.0 [facility] Comment on above: Performed By: #### 2 823-3 #### [facility] ([id number]) [address] [place] [address] MRI SHOULDER LT WO CONon MRI SHOULDER [...] HYALINE CARTILAGE: Complete loss of cartilage with wcdu-vs-eavd articulation between the humeral head and glenoid, [...] by: BANDAR SHOOK Date: 2022-07-05 07:38 Normal [facility] MG MAMM SCREEN SAMAN W CADon 0 05-10-2022 MG MAMM SCREEN SAMAN W CAD Patient: DONNA MATHEWS Exam Date: 05/10/2022 : 1960 Gender:F 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 LOCATION: [facility] BREAST COMPOSITION: Heterogeneously dense,which may obscure [...] LUMP SHOULD BE BIOPSIED. Dictated by: El Saundesr MD on 05/11/2022 at 12:29 Approved by: El Saunders MD on 05/11/2022 at 12:31 Normal [facility] XR DEXA BONE DENSITYon 05-10 XR [...] EL SAUNDERS Date: 2022-05-10 16:17 Normal [facility] MRI BRAIN WO W CONon 023 [...] BANDAR SHOOK Date: 2022-04-13 07:38 Normal [facility] BUNon 04-12-2022 Urea nitrogen [Mass/Vol] 37.0 mg/dL Critically high 7.0-18.0 [facility] Comment on above: Performed By: #### C KRIS BUN #### [facility] [address] [place], [place] [address] Dr. Ellen Layne CREATININEon 04-12-2022 Creatinine [Mass/Vol] 1.79 mg/dL Critically high 0.55-1.02 [facility] Comment on above: Performed By: #### C KRIS BUN #### [facility] [address] [place], [place] [address] Dr. Ellen Layne EGFR-AF BAHRAINI 35 mL/min/1.73m2 Critically low >=60 [facility] Comment on above: Performed By: #### C KRIS, BUN #### [facility] [address] [place], [place] [address] Dr. Ellen Layne EGFR-NON AF BAHRAINI 29 mL/min/1.73m2 Critically low >=60 [facility] Comment on above: Performed By: #### C KRIS, BUN #### [facility] [address] [place], [place] [address] Dr. Ellen Layne Gastroenterology Office/Clin ic Noteon 05-18-2021 Gastroenterology Office/Clinic Note Chief Complaint ref by [facility]- abnormal labs HPI Staff This is a 60 year old female who presents today for a referral by [facility] for complaints of abnormal renal labs. History of Present Illness The patient is a [facility] resident and was referred to me, but [...] I advised the patient to call the [facility] and clarify why she was referred. 2. Screen for colon cancer (Z12.11: Encounter for screening for malignant neoplasm of colon) Documentation services were performed after patient or guardian consented to allow [employer] to record this visit. 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 ANABELLE: [...] mg= 1 tab(s), Oral, Daily Vitamin D, [address] International_Unit, Oral, qWeek Zanaflex 4 mg Tab, 4 mg= 1 tab(s), Oral, Daily Zinbryta, 150 mg, SubCutaneous, qMonth Allergies No Known Allergies Social History Alcohol - Denies Alcohol Use, 10/19/2010 Past, 10/19/2010 Substance Abuse - Denies Substance Abuse, (more content not included)... Normal [facility] Comment on above: Result Comment: Elec [...] longer receiving treatment for. DVT Osteopenia Normal [facility] 08-22-2020 [facility] DONNA MATHEWS ([id number]) 1960 F Date Time Provider Department 08/22/20 QUINTEN LEWIS During your visit today, we recorded the following information about you: Shahrzad Hannah Pss 08/22/2020 2:27 PM Signed Patient calling in regards to the [facility] that provider advise patient call. States she ordered shoes and its been over a month but lost their number and has no way of getting in touch with them. Patient is requesting a call at [phone] Please advise. Alize Patton 08/23/2020 1:19 PM Signed Replied with phone number via my chart. Allergies As of Date: 08/22/2020 (No Known Allergies) Date Reviewed: 07/27/2020 Reviewed by: Alize (Pss) Abdi - Fully Assessed Reason for Visit: [...] LUTEIN ORAL) Take by mouth. - Fish Oil-[place]-3 Fatty Acids (FISH OIL) 340-1,000 mg cap [...] Status:Closed by SHAHRZAD DONIS on 07/04/21 Normal [facility] 07-27-2020 [facility] Office Visit ([facility]OR[facility] ) DONNA MATHEWS ([id number]) 1960 F Date Time Provider Department 07/27/20 [...] Date Reviewed: 07/27/2020 Reviewed by: Alize [facility] - Fully Assessed Reason for Visit: [...] Encounter Status:Closed by QUINTEN LEWIS on 07/28/20 [facility] Urineon 06-06-2018 C Urine urine [...] > Verified Vanc S 1 Verified Normal [facility] [facility] Comment on above: Performed By: #### [id number] #### [facility] (DEFAULT) [address] [place] [address] Coding Summaryon 06-05-2018 Coding Summary CODING DATE: 06/05/2018 [facility] STATUS: Home PAYOR: Medicare MC APC DESCRIPTION 5372 Level 2 Urology and Related Services ADMIT DX: REASON FOR VISIT DX: R32 Unspecified urinary incontinence FINAL DX: PRINCIPAL: R32 Unspecified urinary incontinence SECONDARY: R93.41 Abnormal radiologic findings on diagnostic imaging of renal pelvis, ureter, or bladder G35 Multiple sclerosis N32.89 Other specified disorders of bladder PYMT PROC APC STAT DESCRIPTION DOCTOR NAME DATE 19166 8815 T Cystourethroscopy David Gonsales MD 06/03/2018 (separate procedure) NOTE: The code number assigned matches the documented diagnosis and / or procedure in the patient's chart. However, the narrative phrase printed from the coding software may appear abbreviated, or result in slightly different terminology. Coded By: Jessica Valiente Date Saved: 06/05/2018 07:20 am Normal [facility] History and Physicalon 06-05 History and Physical [id number]#1.0 [facility] Consent Formson 06-04-2018 Consent Forms [id number]#1.00 [facility] Outside Recordson 06-04-2018 Outside Records [id number]#1.00 [facility] Provider Orderson 06-04-2018 Protein mass conc [id number]#1.00 [facility] Inpatient Patient Summaryon 06-03-2018 Inpatient Patient Summary [address] [address] Patient Discharge Instructions Name: DONNA MATHEWS : 62 Patient Address: [address] [place] [address] Primary Care Provider: Name: Harjit Lopez MD After you are discharged if you find you have any questions, please, call [phone] ext [phone] to speak to a nurse. Discharge Diagnosis: [...] business decisions or sign any legal documents [facility] would like to thank you for allowing us to assist you with your healthcare needs. The following includes patient education materials and information regarding your injury/illness. DONNA MATHEWS has been given the following list of follow-up instructions, prescriptions, and patient education materials: Follow-up Instructions With: Address: When: David Gonsales [address] [facility], [address] [place], [place] [address] Business (1) With: Address: When: Harjit Lopez [address] [place] [address] Business (1) Medications During the course of [...] for Disease Control and Prevention November 2013 [facility] MAGR Intraoperative Recordon 06-03-2018 MAGR Intraoperative Record MAGR Intra-Op Record Summary Primary Physician: David Gonsales MD Finalized Date/Time: 06/03/18 16:22:13 Pt. Name: DONNA MATHEWS Nelly /Sex: 1960 FEMALE Med Rec #: [id number] Physician: David Gonsales MD Financial #: [id number] Pt. Type: D Room/Bed: / Admit/Disch: 06/03/18 [...] Linda M Role Performed Surgeon - Primary Memorial Counselor Scrub Personnel Time In 06/03/18 15:45:00 06/03/18 [...] 06/03/18 16:21 MHBLONG Modify Pick List Normal [facility] MAGR Preoperative Recordon 0 06-03-2018 MAGR Preoperative Record MAGR Pre-Op Record Summary Primary Physician: David Gonsales MD Finalized Date/Time: 06/03/18 15:51:38 Pt. Name: DONNA MATHEWS D.O.B./Sex: 1960 FEMALE Med Rec #: [id number] Physician: David Gonsales MD Financial #: [id number] Pt. Type: D Room/Bed: / Admit/Disch: 06/03/18 [...] Signed By: Irlanda Knox RN 06/03/18 15:51 [facility] Patient Handouton 06-03-2018 Patient Handout [facility] Progress Note - Nurseon 05-10 Protein mass conc Talked with Yesenia @ [facility], instructed to have pt here @ 1030 on 06-03-18 and to fax Med. list-verbalized understanding. [Electronically Signed on: 06/02/2018 10:58 EDT] Cherise Espinoza RN [Verified on: 06/02/2018 10:58 EDT] Cherise Espinoza RN [facility] Vital Signs Date Time Vital Sign Value Performing Clinician Facility 05-02-2023 12:12-0500 Body height 167.6 cm Krystin Salcedo MD Work Phone: [employer] 05-02-2023 12:12-0500 Body mass index (BMI) [Ratio] 47.64 kg/m2 Krystin Salcedo MD Work Phone: [employer] 05-02-2023 12:12-0500 Body weight 133.81 kg Krystin Salcedo MD Work Phone: [employer] 05-02-2023 12:12-0500 Diastolic blood pressure 70 mm[Hg] Krystin Salcedo MD Work Phone: [employer] 05-02-2023 12:12-0500 Systolic blood pressure 138 mm[Hg] Krystin Salcedo MD Work Phone: [employer] 01-24-2021 09:20-0500 Body height 170.18 cm Kendell Garcia Other [employer] Other 01-24-2021 09:20-0500 Body mass index (BMI) [Ratio] 49.17 kg/m2 Kendell Garcia Other [employer] Other 01-24-2021 09:20-0500 Body weight 142.43 kg Kendell Garcia Other [employer] Other 01-24-2021 09:20-0500 Diastolic blood pressure 86 mm[Hg] Kendell Garcia Other [employer] Other 01-24-2021 09:20-0500 Systolic blood pressure 134 mm[Hg] Kendell Garcia Other [employer] Other Encounters Encounter Date Encounter Type Care Provider Facility Start: 11-19-2023 End: 11-19-2023 ambulatory HONORIO MAY Not Available Start: 10-21-2023 End: 10-21-2023 ambulatory [facility] Mervin [facility] Start: 09-26-2023 End: 09-26-2023 ambulatory HONORIO MAY Not Available Start: 09-19-2023 End: 10-10-2023 ambulatory [facility] Funmilayo [facility] Start: 08-16-2023 End: 08-16-2023 ambulatory TODD Garza [facility] Start: 08-01-2023 End: 08-01-2023 ambulatory KRYSTIN Vega [facility] Start: 07-12-2023 End: 07-12-2023 ambulatory GABRIELLE CONTRERAS [facility] Start: 07-08-2023 End: 07-09-2023 ambulatory Fausto Vasquez MD Facility[facility] Start: 06-18-2023 End: 06-18-2023 ambulatory ADDIS Vega [facility] Start: 06-14-2023 End: 06-14-2023 ambulatory KRYSTIN Vega [facility] Start: 06-03-2023 End: 06-03-2023 ambulatory KRYSTIN Vega [facility] Start: 05-31-2023 End: 06-02-2023 ambulatory TODD Garza [facility] Start: 05-31-2023 End: 06-02-2023 ambulatory AMY YAÑEZ [facility] Start: 05-30-2023 End: 06-01-2023 ambulatory KRYSTIN Silvia [facility] Start: 05-02-2023 End: 05-02-2023 ambulatory KRYSTIN Silvia [facility] Start: 05-02-2023 End: 05-02-2023 Postop follow up visit related to original px Krystin Salcedo MD Work Phone: [facility] Comment on above: Morbid obesity ([facility]) (Primary Dx); ESRD (end stage renal disease) ([facility]); Arteriovenous fistula stenosis, initial encounter ([facility] Start: 04-17-2023 End: 04-17-2023 ambulatory ZIYAD ULRICH [facility] Start: 04-12-2023 End: 05-10-2023 ambulatory [facility] Start: 04-01-2023 End: 04-01-2023 ambulatory ZIYAD ULRICH [facility] Start: 03-05-2023 Telephone encounter Elba Ramirez [facility] - Medical Oncology Start: 02-28-2023 End: 03-11-2023 ambulatory [facility] Start: 02-25-2023 End: 02-25-2023 Evaluation and management of inpatient ANURAG ISABEL [facility] Start: 02-25-2023 End: 02-25-2023 Evaluation and management of inpatient KRYSTIN SALCEDO [facility] Start: 02-19-2023 End: 02-19-2023 ambulatory Rosina Underwood Raudelsergey Facility:[facility] Start: 07-04-2022 End: 07-05-2022 ambulatory NARENDRANATH LAKSHMIPATHY [...] 02-21-2021 End: 02-21-2021 ambulatory Kendell Garcia Other [employer] Other Start: 12-14-2021 Telephone encounter Kendell Garcia [facility] Start: 01-24-2021 End: 01-24-2021 ambulatory Kendell Garcia Other [facility] [employer] Other Start: 01-24-2021 Office outpatient ne w 45 minutes Kendell Garcia [facility] Neurosurgery Start: 08-22-2020 Telephone encounter José Lewis DPM Work Phone: Orthopaedics Comment on above: Question Start: 07-09-2018 End: 07-09-2018 Patient encounter procedure DAVID GONSALES [facility] Start: 06-03-2018 End: 06-26-2018 Patient encounter procedure David Gonsales Facility:[facility] Procedures Date Procedure Procedure Detail Performing Clinician Start: 10-21-2023 Follow-up visit Follow-up BRANDON BOB Start: 09-13-2022 Adult depression scr eening assessment Elba Mary Start: 07-09-2018 DISCHARGE PATIENT MARTIN GONSALES Plan of Treatment Date Care Activity Detail Author Start: 12-08-2028 Subsequent hospital visit by physician 12/08/2028 7:37 AM EDT Hospital Encounter [facility] [address] [place] [address] Harjit Lopez MD [address] [place] [address] Chronic kidney disease (Primary Dx); Anemia; Multiple sclerosis (CMS-HCC); CKD (chronic kidney disease) [facility] Comment on above: Chronic kidney disea se (Primary Dx); Anemia; Multiple sclerosis (CMS-HCC); CKD (chronic kidney disease) Start: 01-24-2025 LIPID SCREEN LIPID SCREEN [facility] Start: 05-02-2024 Adult BMI Screening Adult BMI Screen ing [employer] Start: 05-02-2024 Tobacco [facility] Start: 02-26-2024 Adult BMI Screening Adult BMI Screen ing [employer] Start: 02-26-2024 Tobacco Screening [facility] Start: 09-14-2023 Depression Screening Depression Scre ening [facility] Start: 05-09-2023 End: 05-09-2023 Patient encounter procedure 05/09/2023 1:30 PM EST Office Visit [facility] [address] [place] [id number] Ivette Sanchez, HEAVY DUTY MECHANIC-NURSING HOME ASSISTANT ADMINISTRATOR [address] [place] [address] [facility] Start: 05-02-2023 End: 05-02-2024 RFA Lower extremity vessels - left Views W contrast IR angiography extremity left Imaging Routine Morbid obesity ([facility]) ESRD (end stage renal disease) ([facility]) Arteriovenous fistula stenosis, initial encounter ([facility]) Expected: 05/02/2023, Expires: 05/02/2024 [facility] Work Phone: Comment on above: Expected: 05/02/2023 , Expires: 05/02/2024 Start: 03-25-2023 End: 03-25-2023 Patient encounter procedure 03/25/2023 2:10 PM EST [facility] [address] [place] [phone] Alvaro Howard MD [address] [place] [address], [address] [place] [address] [phone] [facility] Start: 11-09-2022 COVID-19 Vaccine ( season) COVID-19 Vaccine ( season) [facility] Start: 11-09-2022 Influenza vaccination Influenza Vacc ine [facility] Start: 11-09-2021 Influenza vaccination INFLUENZ A (Season Ended) [facility] Start: 08-28-2020 COVID-19 VACCINE (3 - Booster for Pfizer series) COVID-19 VACCINE (3 - Booster for Pfizer series) [facility] Start: 05-25-2017 DIABETES SCREEN DIABETES SCREEN [facility] Start: 10-26-2011 Administration of varicella zoster vaccine Zoster (Shingles) Vaccine (1 of 2) [facility] Start: 10-26-2011 SHINGRIX VACCINE (1 of 2) SHINGRIX VACCINE (1 of 2) [facility] Start: 2006 COLOGUARD (FIT-DNA) COLOGUARD (FIT-D NA) [facility] Start: 2006 Colonoscopy COLONOSCOPY [facility] Start: 2006 COLORECTAL CANCER SCREENING COLORECTAL CANCER SCREENING [facility] Start: [address] COLONOGRAPHY [facility] Start: 2006 FECAL OCCULT BLOOD FECAL OCCULT BLOO D [facility] Start: 2006 SIGMOIDOSCOPY SIGMOIDOSCOPY [facility] Start: 2001 Mammography MAMMOGRAM [facility] Start: 10-26-1991 HPV TESTING HPV TESTING [facility] Start: 1982 PAP TESTING PAP TESTING [facility] Start: 1982 Screening for malign ant neoplasm of cervix Pap Smear [facility] Start: 1980 DTaP,Tdap and Td Vaccines (1 - Tdap) DTaP,Tdap and Td Vaccines (1 - Tdap) [facility] Start: 1980 Urine microalbumin profile DTAP,TDAP,TD (1 - Tdap) [facility] Start: 10-26-1979 Adult BMI Follow Up Plan Adult BMI Follow Up Plan [facility] Start: 10-26-1979 HEPATITIS C SCREENING HEPATITIS C SC REENING [facility] Start: 10-26-1979 HIV SCREENING HIV SCREENING [facility] Start: 1973 Adult depression screening assessment DEPRESSION SCREENING [facility] Immunizations Immunization Date Immunization Notes Care Provider Sandeep parra 11-03-2018 influenza, injectabl e, quadrivalent, preservative free [facility] 11-03-2018 influenza virus vaccine, unspecified formulation [facility] 10-14-2018 influenza, injectabl e, quadrivalent, preservative free [facility] 08-11-2018 influenza, injectabl e, quadrivalent, preservative free [facility] 12-22-2017 pneumococcal polysaccharide vaccine, 23 valent [facility] 11-09-2016 influenza, injectabl e, quadrivalent, preservative free [facility] 12-09-2012 pneumococcal polysaccharide vaccine, 23 valent Quinten Lewis DPM Work Phone: [facility] Payers Date Payer Category Payer Self-pay [id number] 2023 Private Health Insurance [facility] PLUS [id number] 2023-Present [phone] [address] [address] [place] [address] [id number] 2022 Medicare [id number] [id number]. [id number] 2020 Medicaid MEDICAID [facility] MEDICAID [id number] 2020-Present [phone] [address] [place] [address] Medicaid [id number]. [id number] 2017 Medicaid [id number]. 1.13.424.2. [id number] 2002 Medicare MEDICARE MEDICAR E A AND B [id number] 2002-Present [phone] [address] [address] [place] [address] Medicare [id number] 1.2.840.897418.1.13.159.2. [id number] 1961 Unknown [id number] 2.16.840.1.179638.3.579.2. 718 1961 Unknown [id number] 2.16.840.1.632922.3.579.2. 177 1960 Unknown [id number] 2.16.840.1.748467.3.579.2. 593 1961 Unknown [id number] 2.16.840.1.715118.3.579.2. 593 1961 Unknown [id number] 2.16.840.1.251269.3.579.2. 593 1961 Unknown [id number] 2.16.840.1.129923.3.579.2. 593 1961 Unknown [id number] 2.16.840.1.698748.3.579.2. 593 1961 Unknown [id number] 2.16.840.1.241994.3.579.2. 593 1961 Unknown [id number] 2.16.840.1.143429.3.579.2. 593 1961 Unknown [id number] 2.16.840.1.888413.3.579.2. 593 1961 Unknown [id number] 2.16.840.1.537622.3.579.2. 593 1961 Unknown [id number] 2.16.840.1.879472.3.579.2. 593 1961 Unknown [id number] 2.16.840.1.967269.3.579.2. 593 1961 Unknown [id number] 2.16.840.1.850955.3.579.2. 1286 1961 Unknown [id number] 2.16.840.1.316580.3.579.2. 196 1961 Unknown [id number] 2.16.840.1.980166.3.579.2. 1286 1961 Unknown [id number] 2.16.840.1.040377.3.579.2. 1286 1961 Unknown [id number] 2.16.840.1.667755.3.579.2. 1286 1961 Unknown [id number] 2.16.840.1.579837.3.579.2. 1286 1961 Unknown [id number] 2.16.840.1.405458.3.579.2. 1285 1961 Unknown [id number] 2.16.840.1.866360.3.579.2. 1285 1961 Unknown [id number] 2.16.840.1.127287.3.579.2. 1285 1961 Unknown [id number] 2.16.840.1.015782.3.579.2. 1285 1961 Unknown [id number] 2.16.840.1.086560.3.579.2. 1285 1961 Unknown [id number] 2.16.840.1.976810.3.579.2. 1285 1961 Unknown [id number] 2.16.840.1.348382.3.579.2. 1285 1961 Unknown [id number] 2.16.840.1.739908.3.579.2. 1285 1961 Unknown [id number] 2.16.840.1.457195.3.579.2. 1285 1961 Unknown [id number] 2.16.840.1.283443.3.579.2. 1285 1961 Unknown [id number] 2.16.840.1.106426.3.579.2. 1285 1961 Unknown [id number] 2.16.840.1.520532.3.579.2. 1285 1961 Unknown [id number] 2.16.840.1.635432.3.579.2. 1285 1961 Unknown [id number] 2.16.840.1.172974.3.579.2. 1285 1961 Unknown [id number] 2.16.840.1.484297.3.579.2. 9 1961 Unknown [id number] 2.16.840.1.633239.3.579.2. 1259 1959 Medicaid [id number] 1959 Medicare [id number] 1959 Medicare [id number] Private Health Insurance [facility] [id number] Unknown [id number] 2.16.840.1.630259.3.579.2. 531 Social History Date Type Detail Facility Start: 03-27-2013 End: 09-13-2022 Tobacco smoking status NHIS Never smoked tobacco [facility] Start: 03-27-2013 End: 09-13-2022 Tobacco use and exposure Smokeless tobacco non-user [facility] Start: 05-05-2014 Alcohol intake Current drinke r of alcohol (finding) [facility] Start: 03-27-2013 History SDOH Alcohol Comment Occasional [facility] Start: 1960 Sex Assigned At Not on file C [facility] Start: 06-27-2020 End: 07-27-2020 Exposure to SARS-CoV-2 (event) Not sure [facility] Start: 03-22-2020 End: 09-13-2022 Sex Assigned At [facility] [employer] Other Start: 02-26-2023 End: 05-02-2023 Alcohol intake Ex-drinker (finding) [facility] [employer] Start: 03-22-2020 End: 09-13-2022 History of Social function [facility] How often to you hav e a drink containing alcohol? Monthly or less [facility] How many standard drinks containing alcohol do you have on a typical day? 1 or 2 [facility] How often do you hav e 6 or more drinks on 1 occasion? Never [facility] Adolescent depressio n screening assessment 0 [facility] Start: 1960 Sex Assigned At Female F [facility] Medical Equipment Procedure Code Equipment Code Equipment Origin al Text Equipment Identifier Dates Graft Bn Canc 30 ml Allgrft - [id number] Start: 05-20-2014 Comment on above: Description: GRAFT B ONE CANC. Fip-Eh-E-Kind Implant - [id number] Start: 10-01-2013 Comment on above: Description: Glenis underwood Spiral Blade Wxd-Pc-P-Kind Implant - [id number] Start: 05-20-2014 Comment on above: Description: 4.5 mm VA-LCP plate, C1713 PLATE Kkx-Hj-Q-Kind Implant - [id number] Start: 05-20-2014 Comment on above: Description: 5.0 x 3 4mm locking screw, C1713 SCREW Xig-Ng-L-Kind Implant - [id number] Start: 05-20-2014 Comment on above: Description: 5.0 mm x 60mm locking screw, C1713 Nil-Gg-W-Kind Implant - [id number] Start: 05-20-2014 Comment on above: Description: 5.0 mm x 65mm locking screw, C1713 SCREW Kil-Hl-W-Kind Implant - [id number] Start: 05-20-2014 Comment on above: Description: 5.0 mm x 70 mm locking screw, C1713 SCREW Nail 12mm 380mm Fem Nlex Im - [id number] Start: 10-01-2013 Comment on above: Description: C1713 N AIL 12MM 380MM FEM NLEX IM Cap End 0mm Fem Ext Strdr Rcs - [id number] Start: 10-01-2013 Screw Bn 5mm 44m m Nlex Ti Ft - [id number] Start: 10-01-2013 Screw Bn 5mm 40m m Nlex Ti Ft - [id number] Start: 10-01-2013 Screw Bn 5mm 66m m Nlex Ti Fem - [id number] Start: 10-01-2013 Comment on above: Description: C1713 S CREW BN 5MM 66MM NLEX TI FEM Screw Bn 4.5mm 40mm Lcp Ss - [id number] Start: 05-20-2014 Screw Bn 4.5mm 42mm Lcp Ss - [id number] Start: 05-20-2014 Screw Bn 4.5mm 46mm Lcp Ss - [id number] Start: 05-20-2014 Screw Bn 4.5mm 32mm Lcp Ss - [id number] Start: 05-20-2014 Screw Bn 4.5mm 34mm Lcp Ss - [id number] Start: 05-20-2014 Screw Bn 4.5mm 36mm Lcp Ss - [id number] Start: 05-20-2014 Screw Bn 4.5mm 38mm Lc Dcp Dhs - [id number] Start: 05-20-2014 Set Cth 24cm 14f r 18ga Str Triniflex Splt3 Bsc Intro Ndl Gw Rpl [id number] - [id number])MQRN 670, [id number] FDA Start: 09-07-2022 Clinical Notes 07-28-2020 to 08-16-2023 Krystin Salcedo MD - 05/02/2023 12:00 PM ESTTelephone Encounter - Elbamervin Hernandez - 03/05/2023 3:07 PM ESTTelephone Encounter [...] Vic Nickerson MD on 08/16/2023 2:53 PM [facility] 05-02-2023 History of Presen t illness Narrative [...] of Study: 04/17/23 Ordering Provider: Ziyad Ulrich APRN-NURSING HOME ASSISTANT ADMINISTRATOR Clinical Indications: ESRD (end stage renal disease) ([facility]) [N18.6 (ICD-10-CM)], A-V fistula ([facility]) [I77.0 (ICD-10-CM)] Interpreting Physicians Performing Staff Roseanne Garcia MD Tech: Roseann Zurdo Patient Information Patient Name Donna Mathews Legal [...] all orders for this visit: Morbid obesity ([facility]) ESRD (end stage renal disease) ([facility]) Arteriovenous fistula stenosis, initial encounter ([facility]) Plan Plan Will arrange for fistula g [...] [facility]. Their phone number is [phone]. documented in this encounter [facility] 03-05-2023 Miscellaneous Notes DARY CALLED TO CANCEL SHE DOES NOT WANT TO RESCHEDULE AT THIS TIME documented in this encounter [facility] 03-05-2023 Telephone encounter Note DARY CALLED TO CANCEL SHE DOES NOT WANT TO RESCHEDULE AT THIS TIME [facility] 06-08-2022 Note PROCEDURE: XR SHOULD ER LT 2V or > COMPARISON: None. HISTORY: Tear of left rotator cuff FINDINGS: BONES:No acute fracture or dislocation. Moderate acromioclavicular joint osteoarthropathy. Severe glenohumeral joint osteoarthritis SOFT TISSUES:Negative. No visible soft tissue swelling. EFFUSION:None visible. OTHER: Negative. IMPRESSION: Moderate to severe osteoarthritis Electronically authenticated by: EL SAUNDERS Date: 2022-06-08 07:41 [facility] 06-07-2022 Note CONSULTATION CONSULTATION DATE: 06/07/2022 [...] our patients to inform us about any tzxb-yow-uklpsuw medications or herbal remedies/nutritional supplements/alternative remedies. 2. [...] options with their primary care provider. [facility] 04-12-2022 Note CONSULTATION CONSULTATION DATE: 04/12/2022 [...] 5'6 , weighs 299 pounds per the fpc scale yesterday. FOCUSED EXAM - NECK: Range [...] Patient is in agreement to this. [facility] 01-25-2022 Note CONSULTATION CONSULTATION DATE: 01/25/2022 [...] does take multiple medications that affect her RN SURGICAL, so this is a possible reason of [...] pounds today. That weight was obtained from [facility]pc records, as she was recently weighed. GENERAL [...] and the therapist to do at the fpc. This includes a menthol heat rub to [...] continues to answer my questions appropriately. [facility] 10-31-2021 Note CONSULTATION CONSULTATION DATE: 10/31/2021 [...] is a poor historian, is in a fpc. PHYSICAL EXAM: FOCUSED EVALUATION OF THE LEFT SHOULDER: The patient has fullness and tenderness along the left shoulder. Significant jump response is noted along the AC joint and also along he glenohumeral in flexion and abduction of the left shoulder. Automatic Fancy Machine Operator strength is maintained however poor. The patient has cervicothoracic kyphosis. The patient does ambulate with a motorized wheelchair. The patient is accompanied by her caregiver from the fpc. IMPRESSION: Current additional working diagnosis on the [...] Kenia Beck but unable to verify) [facility] 10-31-2021 Note CONSULTATION PROCEDURE DATE: 10/31/2021 [...] up in the office as needed. [facility] 10-18-2021 Note CONSULTATION CONSULTATION DATE: 10/18/2021 [...] 5'6 , weighs 320 pounds according to fpc data. GENERAL APPEARANCE: Pleasant, appropriate, in no [...] agrees with this plan of care. [facility] 07-27-2021 Note CONSULTATION CONSULTATION DATE: 07/27/2021 [...] of care and all questions were answered. [facility] Signed and Approved by: ABHINAV IGNACIO . 07/31/2021 15:07:00 [facility] [facility] 01[facility]2021 Evaluation note Encounter Date Diagnosis [...] her ability to ambulate very very poor [employer] Other 06-15-2021 Miscellaneous Notes* Telephone Encounter - Alize Patton (Pss) - 08/23/2020 1:19 PM EDT Replied with phone number via my chart. * Telephone Encounter - Shahrzad Qi Pss - 08/22/2020 2:25 PM EDT Patient calling in regards to the shoes company that provider advise patient call. States she ordered shoes and its been over a month but lost their number and has no way of getting in touch with them. Patient is requesting a call at [phone] Please advise. [facility] NoteHNO ID: [id number] Author: Quinten Lewis DPM Service: ? Author [...] follow-up as needed pending progress. Quinten Lewis, [facility] Administration[facility] noteNo InformationNort [employer] Other evaluation note* Diagnosis Chronic kidney disease- Primary Chronic kidney disease, unspecified Anemia Unspecified anemia Multiple sclerosis ([facility]) Multiple sclerosis CKD (chronic kidney disease) Chronic kidney disease, unspecified Morbid obesity ([facility])- Primary Morbid obesity ESRD (end stage renal disease) ([facility]) End stage renal disease Arteriovenous fistula stenosis, [place] encounter [place] documented in this encounter [facility] noteNo assessment information available [facility] Work Phone: History general Narrative - Reported* Type Description Date Medical History multiple sclerosis Medical History bilateral hearing loss Medical History hypertension Medical History diabetes mallitus Medical History thrombacytopenia Medical History kidney disease Surgical History tubal ligation Surgical History knee replacement 2006 Surgical History Foot Surgery-LEFT 2007,2008,200 9 Hospitalization History See Above [employer] Other InstructionsNot on filedocumented in this encounter [facility] CenterRealtime WorldsInstructionsNot on filedocumented in this encounter [facility] CenterBaileyu SystemReason for visit Narrativereferral [place] Cervical radiculopathyNorth [employer] Other reason for visit NarrativePain Medicine Referral UpdateNopershing memorial hospital [employer] Other Summary Purpose Family History No Family History Records Found Relationship Condition Age at Onset Recorded Date/T jacqui Not Specified Type 2 diabetes mellitus Unknown Advance Directives No Advanced Directives Records FoundDocuments on File Type Date Recorded Patient Grievance Manager Expl anation Advance Directive(s) 12/04/2013 5:55 PM Latest Code Status on File Code Status Date Activated Date Inactivated Comments Full Code 09/13/2022 9:32 AM 09/20/2022 3:29 AM Latest Code Status on File Code Status Date Activated Date Inactivated Comments Full Code 09/13/2022 9:32 AM 09/20/2022 3:29 AM Hospital Course Note [facility] SURGERY Clinical Discharge Summary PERSON INFORMATION Name DONNA MATHEWS Age 57 Years 62 Sex FEMALE Language Croatian PCP Harjit Lopez MD Marital Status Single Med Service Ambulatory Surgery Acct# Arrival 06/03/18 12:10:14 Visit Reason SURGERY - CYSTOSCOPY Acuity LOS 006 05:41 Address: [address] [place] [id number] Comment: PROVIDER INFORMATION VITALS INFORMATION Vital Sign [...] Diagnosis 1 Neck pain (M54.2) Referral Organization [facility] urosurgery Referring Provider First Name Kendell Referring Provider Last Name Radha Referring Provider Specialty Neurologica l Surgery Referred Organization [facility] Referred Provider Jr. Galindo William Referred Address [address],[place], [place],[address] Referred Provider Specialty Pain Medicin e Referral Priority Routine Specialty Diagnoses / Procedures Referred By Laurent talavera Referred To Contact Radiology Diagnoses Morbid obesity [place] ESRD (end stage renal disease) [place] Arteriovenous fistula stenosis, initial encounter ([facility] Procedures IR angiography extremity left Krystin Salcedo MD [address] [place] [address], [address] [place] [address] Referral ID Status Reason Start Date Expiration Date V isits Requested Visits Authorized [id number] Pending Review 05/02/2023 05/01/2024 1 1 Additional Source Comments INFORMATION SOURCE (unrecogn ized section and content) DATE CREATED AUTHOR 06/26/2018 [facility] DATE CREATED AUTHOR AUTHOR'S ORGANIZ ATION 07/15/2018 [facility] DATE CREATED AUTHOR AUTHOR'S ORGANIZ ATION 06/05/2021 [facility] DATE CREATED AUTHOR AUTHOR'S ORGANIZ ATION 07/07/2021 [facility] DATE CREATED AUTHOR AUTHOR'S ORGANIZ ATION 07/08/2022 [facility] DATE CREATED AUTHOR AUTHOR'S ORGANIZ ATION 04/02/2023 [facility] DATE CREATED AUTHOR AUTHOR'S ORGANIZ ATION 07/10/2023 [facility] DATE CREATED AUTHOR AUTHOR'S ORGANIZ ATION 08/18/2023 [facility] DATE CREATED AUTHOR AUTHOR'S ORGANIZ ATION 09/03/2023 [facility] DATE CREATED AUTHOR AUTHOR'S ORGANIZ ATION 10/22/2023 [facility] DATE CREATED AUTHOR AUTHOR'S ORGANIZ ATION 11/21/2023 [facility] EPIC Source Comments (unrecognize d section and content) In the event this informatio n is protected by the Federal Confidentiality of Alcohol and Drug Abuse Patient Records regulations: The Federal rules restrict any use of the information to criminally investigate or prosecute any alcohol or drug abuse patient.[facility] Reason for Visit (unrecogniz ed section and content) Reason Comments Question Care Teams (unrecognized sec tion and content) Supervisor [employer] Department Relationship Specialty Start Date End Date Doug Ornelas MD [address] [place] [address] PCP - General 01/18/04 Christopher Lema Referring Podiatry 03/31/13 Supervisor [employer] Department Relationship Specialty Start Date End Date Todd George MD [address] [place] [address] PCP - General Internal Medicine 09/13/22 Supervisor [employer] Department Relationship Specialty Start Date End Date Todd George MD [address] [place] [address] PCP - General Internal Medicine 09/13/22 Goals [...] BE BASED ON THE PRIMARY CLINICAL RECORDS. [facility] [employer]. provides no warranty or guarantee of the accuracy or completeness of information in this document.
[2023-11-25 06:51] VITALS: BP 121/66; PULSE 46; TEMP 36.3; O2SAT 95
[2023-11-25 07:39] VITALS: BP 131/82; BP 133/89; PULSE 103; PULSE 106; O2SAT 93
--- NOTE | 2023-11-25 07:41 | P.ON_ITS ---
Date of procedure: 11/25/23 Pre-op diagnosis: Left shoulder pain Post-op diagnosis: same as pre-op Procedure: Procedure: Left suprascapular and axillary nerve block Medications: Bupivacaine 0.25% 3cc, kenalog 40mg The patient was seen and examined in the preoperative holding area. Informed consent was obtained and placed on the chart.? The patient was brought to the medical procedure unit and placed in the prone position. A timeout was completed verifying correct patient, procedure site, positioning, plan, and special equipment.? Using aseptic technique, under direct fluoroscopic visualization, a 25-gauge 3-1/2 inch spinal needle was advanced to the superior portion of the left posterior osseous rim of the glenoid fossa, lateral and superior to the spinal glenoid notch.? 0.5 cc of the above solution was injected.? The needle was then redirected 3 mm inferiorly and another 0.5 cc of the above medication was injected.? This needle was then removed.? Using aseptic technique, under direct fluoroscopic visualization, another 25-gauge 3-1/2 inch spinal needle was advanc ed toward the most inferior and lateral border of the greater tubercle.? 0.5 cc of the above medication was administered.? The needle was then redirected 3 mm inferiorly.? 0.5 cc was administered in this region.? This needle was removed. ? The patient was taken to the postprocedural recovery area and monitored for an appropriate length of time before being found suitable for discharge in the accompaniment of a responsible adult. Anesthesia: Local Surgeon: Fausto Vasquez Pathology: none sent Condition: stable Disposition: no change
[2023-11-25] MEDS: LIDOCAINE HCL 2% 400 MG/20 ML MDV INJ (07:42)
[2023-11-25] MEDS: BUPIVACAINE HCL 0.25% PF 25 MG/10 ML VIAL INJ (07:42)
[2023-11-25] MEDS: TRIAMCINOLONE ACETONIDE 40 MG/ML VIAL INJ (07:42)
== END 2023-11-25 08:00 | disposition home or self-care (01) ==
LOC: SURGOUT 06:42
PROVIDERS: PCP Internal Medicine; Visit Provider Anesthesiology
DX: M25.512 Pain in left shoulder (principal); Z79.899 Other long term (current) drug therapy
CPT/HCPCS: 64417; 64418; 82948; J0665; J3301

== ENCOUNTER 2023-11-29 07:30 | Outpatient (RCR) | payer MEDICARE, MEDICAID, SELFPAY ==
[2023-11-29] MEDS: ACETAMINOPHEN 325 MG TABLET 650 MG PO (11:44)
[2023-11-29] MEDS: METHYLPREDNISOLONE SOD SUCC PF 125 MG/2 ML VIAL IVP (11:45)
[2023-11-29] MEDS: DIPHENHYDRAMINE HCL 50 MG/ML VIAL IV (11:45)
[2023-11-29] MEDS: 0.9 % SODIUM CHLORIDE 500 ML 1000 ML IV (11:45)
[2023-11-29] MEDS: OCRELIZUMAB 600 MG in 0.9 % SODIUM CHLORIDE 500 ML 100 MG IV (12:41)
[2023-11-29 12:58] VITALS: BP 91/51; PULSE 78; TEMP 36.6; O2SAT 95
--- NOTE | 2023-11-29 13:03 | PC.NURSE ---
1145 premeds initiated as ordered. IV fluids initated as ordered.
--- NOTE | 2023-11-29 13:11 | PC.NURSE ---
1220 states became nauseated small emesis of undigested food. assisted to change shirt and clean up, pt gown placed on patient.
--- NOTE | 2023-11-29 13:13 | PC.NURSE ---
1300 resting quietly eyes closes. infusion titrated per 2 hour infusion protocol
[2023-11-29 14:00] VITALS: BP 90/58; PULSE 68; TEMP 36.6; O2SAT 95
--- NOTE | 2023-11-29 15:14 | PC.NURSE ---
1455 infusions completed, tolerated well. no s/s of reaction. IV dc'd catheter intact site clear. cottonball applied followed by coban. no bleeding noted. released per motorizes wheelchair to facility van
== END 2023-12-09 23:59 | disposition home or self-care (01) ==
LOC: INF 07:30
PROVIDERS: PCP Internal Medicine; Visit Provider Psychiatry & Neurology Neurology
DX: G35 Multiple sclerosis (principal)
CPT/HCPCS: 96365; 96366; 96375; J1200; J2350; J2919

== ENCOUNTER 2023-12-04 13:46 | Outpatient (OUT) | payer MEDICARE, MEDICAID, SELFPAY ==
--- OUTSIDE RECORDS SUMMARY | 2023-12-04 13:51 | XMS_ITS | CCD ---
Author Organization [facility] Care Team Providers Care X Ray Tech Name Role Phone David Gonsales Admitting Unavailable David Gonsales Attending Unavailable Harjit Lopez Primary Care Unavailable DAVID GONSALES Admitting Unavailable DAVID GONSALES Attending Unavailable HARJIT LOPEZ Primary Care Unavailable Ceci BROWN, Doug Underwood Primary Care Provider [phone] Christopher Lema Unavailable Kendell Garcia Unavailable [...] Propensity to adverse reactions to drug (disorder) [facility] Repository Medications Current Medications Medication Drug [...] mouth in the morning. 0 Active calcitriol 0.07936 mg oral capsule (2 sources) Vitamin D3 [...] docusate sodium 50 mg / sennosides, senior living 8.6 mg oral tablet (2 sources) Start: [...] venous catheter. 0 08/22/2022 Active lactobacillus acidophilus [id number] unt / pectin 100 mg oral tablet [...] and 1 Application before bedtime. 0 Active [place] 3-Jrq-Mam-Fish Oil (Fish Oil) 1,000 mg (120 mg-180 mg) Capsule (1 source) Start: 03-12-19 19 take 2 capsules by mouth once daily [place] 4-Uzr-Vxp-Fish Oil (Fish Oil) 1,000 mg (120 mg-180 [...] (RENVELA) 800 mg tablet sodium zirconium cyclosilicate 08514 mg powder for oral suspension (1 source) [...] MG Oral for 30 Active Vit C-Vit M-Pbtdxf-Wls-Om-3 (Ocuvite) 800-18-7-150 hl-ngck-lg-mg Capsule (1 source) Start: 03-12-2018 take 1 capsule by mouth once daily Vit C-Vit F-Ceupwk-Jyc-Om-3 (Ocuvite) 151-36-6-150 gr-akzd-jb-mg Capsule Active 1 CAP PO Daily March [...] Comment on above: [facility] famotidine 20 mg oral [...] on above: Take 1 capsule by mo [facility] once daily. Fish Oil-[place]-3 Fatty Acids (FISH OIL) 340-1,000 mg cap (1 source) Fish Oil-[place]-3 Fatty Acids (FISH OIL) 340-1,000 mg cap [...] 1 tablet by attila th once daily. Gpzuojgrzkya-Nvpc-Rgb ic Acid (Certavite-Antioxidan t) 18-400 mg-mcg Tablet (1 source) Start: 03-12-19 19 End: 09-12-19 20 take 1 tablet by mouth once daily Yrtyglzkvcgn-Kpap-Sq lic Acid (Certavite-Antioxida nt) 18-400 mg-mcg Tablet [...] by mouth twice daily. polyethylene glycol 3350 35995 mg powder for oral solution (4 sources) [...] 07-12-2023 Bilirubin Ql (U) Negative Normal NEG [facility] Comment on above: Performed By: #### U A #### [facility] ([id number]) [address] [place] [address] BLOOD/HGB MODERATE Abnormal NEG [facility] Comment on above: Performed By: #### U A #### [facility] ([id number]) [address] [place] [address]7967 Color (U) YELLOW Normal YELLOW [facility] Comment on above: Performed By: #### U A #### [facility] ([id number]) [address] [place] [address] 69548 Glucose Ql (U) Negative Normal NEG [facility] Comment on above: Performed By: #### U A #### [facility] ([id number]) [address] [place] [address]138 Ketones Ql (U) Negative Normal NEG [facility] Comment on above: Performed By: #### U A #### [facility] ([id number]) [address] [place] [address]157 Leukocyte esterase Test strip Ql (U) MODERATE Abnormal NEG [facility] Comment on above: Performed By: #### U A #### [facility] ([id number]) [address] [place] [address] 77438 Nitrite Ql (U) Negative Normal NEG [facility] Comment on above: Performed By: #### U A #### [facility] ([id number]) [address] [place] [address] 64884 pH (U) 5.5 [pH] Normal 5.0-8.5 [facility] Comment on above: Performed By: #### U A #### [facility] ([id number]) [address] [place] [address] 90668 Protein Ql (U) 100 mg/dL Abnormal NEG [facility] Comment on above: Performed By: #### U A #### [facility] ([id number]) [address] [place] [address] 85616 R.B.CELLS 10 /hpf High 0-5 [facility] Comment on above: Performed By: #### U A #### [facility] ([id number]) [address] [place] [address] 96043 Specific gravity (U) [Rel density] 1.015 Normal 1.003-1.035 [facility] Comment on above: Performed By: #### U A #### [facility] ([id number]) [address] [place] [address]235 SQUAMOUS EPITHELIUM 10 /hpf High 0-5 [facility] Comment on above: Performed By: #### U A #### [facility] ([id number]) [address] [place] [address] [place] [address] TURBIDITY CLOUDY Abnormal CLEAR [facility] Comment on above: Performed By: #### U A #### [facility] ([id number]) [address] [place] [address] 32874 Urobilinogen Qn (U) 0.2 {Victor Manuel'U}/dL Normal <1.1 [facility] Comment on above: Performed By: #### U A #### [facility] ([id number]) [address] [place] [address]31 W.B.CELLS 60 /hpf High 0-5 [facility] Comment on above: Performed By: #### U A #### [facility] ([id number]) [address] [place] [address]87 URINE CULTUREon 07-12-2023 Bacteria identified Cx Nom (U) CULTURE RESULTS MULTIPLE SPECIES PRESENT. PROBABLE COLLECTION CONTAMINATION. SUGGEST REPEAT SPECIMEN. MIXED GRAM POSITIVE AND GRAM NEGATIVE ORGANISMS Normal [facility] Comment on above: Performed By: #### 6 30-4 #### [facility] ([id number]) [address], [address] [place] [address] BASIC METABOLIC PANLon 05-31 Anion gap [Moles/Vol] 10 mmol/L Normal 5-15 [facility] Comment on above: Performed By: #### C BCA, BMP #### [facility] ([id number]) [address], [address] [place] [address] Calcium [Mass/Vol] 7.9 mg/dL Low 8.5-10.5 [facility] Comment on above: Performed By: #### C BCA, BMP #### [facility] ([id number]) [address], [address] [place] [address] Chloride [Moles/Vol] 98 mmol/L Normal 98-109 [facility] Comment on above: Performed By: #### C BCA, BMP #### [facility] ([id number]) [address], [address] [place] [address] CO2 [Moles/Vol] 29 mmol/L Normal 22-32 [facility] Comment on above: Performed By: #### C BCA, BMP #### [facility] ([id number]) [address], [address] [place] [address] Creatinine [Mass/Vol] 3.70 mg/dL High 0.40-1.00 [facility] Comment on above: Result Comment: METH OD TRACEABLE TO IDMS STANDARD Performed By: #### C BCA, BMP #### [facility] ([id number]) [address], [address] [place] [address] GFR/1.73 sq M.predicted among non-blacks MDRD (S/P/Bld) [Vol rate/Area] 13 mL/min/{1.73_m2} Low >59 [facility] Comment on above: Result Comment: Reported eGFR is based on the CKD-EPI 2020 equation that does not use a race coefficient. Performed By: #### C BCA, BMP #### [facility] ([id number]) [address], [address] [place] [address] Glucose [Mass/Vol] 93 mg/dL Normal 65-99 [facility] Comment on above: Performed By: #### C BCA, BMP #### [facility] ([id number]) [address], [address] [place] [address] Potassium [Moles/Vol] 3.9 mmol/L Normal 3.5-5.0 [facility] Comment on above: Performed By: #### C BCA, BMP #### [facility] ([id number]) [address], [address] [place] [address] Sodium [Moles/Vol] 137 mmol/L Normal 134-146 [facility] Comment on above: Performed By: #### C BCA, BMP #### [facility] ([id number]) [address], [address] [place] [address] Urea nitrogen [Mass/Vol] 26 mg/dL Normal 5-27 [facility] Comment on above: Performed By: #### C LUIS, BMP #### [facility] ([id number]) [address], [address] [place] [address] CBC AND AUTO DIFFon 06-01-19 ABSOLUTE BASOPHIL 0.0 X10E9/L Normal 0.0-0.2 [facility] Comment on above: Performed By: #### C LUIS, BMP #### [facility] ([id number]) [address], [address] [place] [address] ABSOLUTE NEUTROPHIL 4.8 X10E9/L Normal 1.5-6.6 [facility] Comment on above: Performed By: #### C LUIS, BMP #### [facility] ([id number]) [address], [address] [place] [address] Basophils/100 WBC (Bld) 0.3 % Normal [facility] Comment on above: Performed By: #### C LUIS, BMP #### [facility] ([id number]) [address], [address] [place] [address] Eosinophils (Bld) [#/Vol] 0.5 10*3/uL High 0.0-0.4 [facility] Comment on above: Performed By: #### C LUIS, BMP #### [facility] ([id number]) [address] [place] [address] Eosinophils/100 WBC (Bld) 6.1 % Normal [facility] Comment on above: Performed By: #### C LUIS, BMP #### [facility] ([id number]) [address] [place] [address] Erythrocyte distribution width (RBC) [Ratio] 19.2 % High 11.5-15.0 [facility] Comment on above: Performed By: #### C LUIS, BMP #### [facility] ([id number]) [address], [address] [place] [address] Hematocrit (Bld) [Volume fraction] 25.0 % Low 35-47 [facility] Comment on above: Performed By: #### C BCA, BMP #### [facility] ([id number]) [address] [place] [address] Hemoglobin (Bld) [Mass/Vol] 8.6 g/dL Low 11.7-15.5 [facility] Comment on above: Performed By: #### C BCA, BMP #### [facility] ([id number]) [address], [address] [place] [address] Lymphocytes (Bld) [#/Vol] 1.6 10*3/uL Normal 1.0-3.5 [facility] Comment on above: Performed By: #### C LUIS, BMP #### [facility] ([id number]) [address], [address] [place] [address] Lymphocytes/100 WBC (Bld) 20.1 % Normal [facility] Comment on above: Performed By: #### C LUIS, BMP #### [facility] ([id number]) [address] [place] [address] MCH (RBC) [Entitic mass] 31.8 pg Normal 27-34 [facility] Comment on above: Performed By: #### C BCA, BMP #### [facility] ([id number]) [address], [address] [place] [address] MCHC (RBC) [Mass/Vol] 34.5 g/dL Normal 32-36 [facility] Comment on above: Performed By: #### C BCA, BMP #### [facility] ([id number]) [address] [place] [address] MCV (RBC) [Entitic vol] 92 fL Normal 80-100 [facility] Comment on above: Performed By: #### C BCA, BMP #### [facility] ([id number]) [address], [address] [place] [address] Monocytes (Bld) [#/Vol] 1.0 10*3/uL High 0-0.9 [facility] Comment on above: Performed By: #### C BCA, BMP #### [facility] ([id number]) [address] [place] [address] Monocytes/100 WBC (Bld) 12.4 % Normal [facility] Comment on above: Performed By: #### C BCA, BMP #### [facility] ([id number]) [address] [place] [address] Neutrophils/100 WBC (Bld) 61.1 % Normal [facility] Comment on above: Performed By: #### C BCA, BMP #### [facility] ([id number]) [address] [place] [address] Platelet mean volume (Bld) [Entitic vol] 8.5 fL Normal 7-12 [facility] Comment on above: Performed By: #### C BCA, BMP #### [facility] ([id number]) [address], [address] [place] [address] Platelets (Bld) [#/Vol] 150 10*3/uL Normal 150-450 [facility] Comment on above: Performed By: #### C BCA, BMP #### [facility] ([id number]) [address], [address] [place] [address] RBC COUNT 2.72 X10E12/L Low 3.80-5.20 [facility] Comment on above: Performed By: #### C BCA, BMP #### [facility] ([id number]) [address], [address] [place] [address] WBC (Bld) [#/Vol] 7.9 10*3/uL Normal 4.0-11.0 [facility] Comment on above: Performed By: #### C BCA, BMP #### [facility] ([id number]) [address] [place] [address] BASIC METABOLIC PANLon 05-30 Anion gap [Moles/Vol] 10 mmol/L Normal 5-15 [facility] Comment on above: Performed By: #### B MP, CBC #### [facility] ([id number]) [address], [address] [place] [address] Calcium [Mass/Vol] 7.6 mg/dL Low 8.5-10.5 [facility] Comment on above: Performed By: #### B MP, CBC #### [facility] ([id number]) [address], [address] [place] [address] Chloride [Moles/Vol] 95 mmol/L Low 98-109 [facility] Comment on above: Performed By: #### B MP, CBC #### [facility] ([id number]) [address] [place] [address] CO2 [Moles/Vol] 29 mmol/L Normal 22-32 [facility] Comment on above: Performed By: #### B MP, CBC #### [facility] ([id number]) [address] [place] [address] Creatinine [Mass/Vol] 5.01 mg/dL High 0.40-1.00 [facility] Comment on above: Result Comment: METH OD TRACEABLE TO IDMS STANDARD Performed By: #### B MP, CBC #### [facility] ([id number]) [address] [place] [address] GFR/1.73 sq M.predicted among non-blacks MDRD (S/P/Bld) [Vol rate/Area] 9 mL/min/{1.73_m2} Low >59 [facility] Comment on above: Result Comment: Reported eGFR is based on the CKD-EPI 2020 equation that does not use a race coefficient. Performed By: #### B MP, CBC #### [facility] ([id number]) [address], [address] [place] [address] Glucose [Mass/Vol] 95 mg/dL Normal 65-99 [facility] Comment on above: Performed By: #### B MP, CBC #### [facility] ([id number]) [address] [address] [place] [address] Potassium [Moles/Vol] 3.7 mmol/L Normal 3.5-5.0 [facility] Comment on above: Performed By: #### B JO ANN, CBC #### [facility] ([id number]) [address] [place] [address] Sodium [Moles/Vol] 134 mmol/L Normal 134-146 [facility] Comment on above: Performed By: #### B JO ANN, CBC #### [facility] ([id number]) [address], [address] [place] [address] Urea nitrogen [Mass/Vol] 40 mg/dL High 5-27 [facility] Comment on above: Performed By: #### B JO ANN, CBC #### [facility] ([id number]) [address] [address] [place] [address] COMPLETE BLOOD COUNTon 05-30 Erythrocyte distribution width (RBC) [Ratio] 17.7 % High 11.5-15.0 [facility] Comment on above: Performed By: #### B MP, CBC #### [facility] ([id number]) [address] [address] [place] [address] Hematocrit (Bld) [Volume fraction] 16.9 % Low 35-47 [facility] Comment on above: Performed By: #### B MP, CBC #### [facility] ([id number]) [address] [place] [address] Hemoglobin (Bld) [Mass/Vol] 5.8 g/dL Critically low 11.7-15.5 [facility] Comment on above: Performed By: #### B MP, CBC #### [facility] ([id number]) [address] [place] [address] MCH (RBC) [Entitic mass] 33.5 pg Normal 27-34 [facility] Comment on above: Performed By: #### B MP, CBC #### [facility] ([id number]) [address] [place] [address] MCHC (RBC) [Mass/Vol] 34.7 g/dL Normal 32-36 [facility] Comment on above: Performed By: #### B MP, CBC #### [facility] ([id number]) [address] [place] [address] MCV (RBC) [Entitic vol] 97 fL Normal 80-100 [facility] Comment on above: Performed By: #### B MP, CBC #### [facility] ([id number]) [address] [place] [address] Platelet mean volume (Bld) [Entitic vol] 8.8 fL Normal 7-12 [facility] Comment on above: Performed By: #### B MP, CBC #### [facility] ([id number]) [address] [place] [address] Platelets (Bld) [#/Vol] 136 10*3/uL Low 150-450 [facility] Comment on above: Performed By: #### B MP, CBC #### [facility] ([id number]) [address] [place] [address] RBC COUNT 1.75 X10E12/L Low 3.80-5.20 [facility] Comment on above: Performed By: #### B MP, CBC #### [facility] ([id number]) [address] [place] [address] WBC (Bld) [#/Vol] 7.1 10*3/uL Normal 4.0-11.0 [facility] Comment on above: Performed By: #### B MP, CBC #### [facility] ([id number]) [address] [place] [address] IR ANGIO EXTREMITY LTon 03-2 IR ANGIO [...] total sedation time of 180 minutes of teax-yk-wspw moderate sedation was provided by the same personnel. Following the procedure, the patient was recovered according to the moderate sedation policy. ANESTHESIA: 10 mL of 1% lidocaine were used for skin and subcutaneous tissue local anesthesia. TIME OUT: [place] Protocol Time Out Verification performed. PROCEDURE: Automatic [...] the wire and placed a short 5 Latvian sheath. Contrast was injected, refluxing downstream and [...] across the stenosis and dilated. A 4 Latvian catheter was advanced through the sheath over [...] raise suspicion (more content not included)... Normal [facility] POTASSIUMon 02-25-2023 Potassium [Moles/Vol] 5.4 mmol/L High 3.5-5.0 [facility] Comment on above: Performed By: #### 2 823-3 #### [facility] ([id number]) [address], [address] [place] [address] MRI SHOULDER LT WO CONon MRI SHOULDER [...] HYALINE CARTILAGE: Complete loss of cartilage with ryyn-vd-tykr articulation between the humeral head and glenoid, [...] by: BANDAR SHOOK Date: 2022-07-05 07:38 Normal [facility] MG MAMM SCREEN SAMAN W CADon 0 05-10-2022 MG MAMM SCREEN SAMAN W CAD Patient: DONNA MATHEWS Exam Date: 05/10/2022 : 1960 Gender:F Ordering : MRS. 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 LOCATION: [facility] BREAST COMPOSITION: Heterogeneously dense,which may obscure [...] MD on 05/11/2022 at 12:31 Normal [facility] XR DEXA BONE DENSITYon 05-10 XR [...] EL SAUNDERS Date: 2022-05-10 16:17 Normal [facility] MRI BRAIN WO W CONon 023 [...] BANDAR SHOOK Date: 2022-04-13 07:38 Normal [facility] BUNon 04-12-2022 Urea nitrogen [Mass/Vol] 37.0 mg/dL Critically high 7.0-18.0 [facility] Comment on above: Performed By: #### C KRIS BUN #### [facility] [address] [place], [place] [address] Dr. Ellen Layne CREATININEon 04-12-2022 Creatinine [Mass/Vol] 1.79 mg/dL Critically high 0.55-1.02 [facility] Comment on above: Performed By: #### C KRIS BUN #### [facility] [address] [place], [place] [address] Dr. Ellen Layne EGFR-AF SAO TOMEAN 35 mL/min/1.73m2 Critically low >=60 [facility] Comment on above: Performed By: #### C KRIS, BUN #### [facility] [address] [place], [place] [address] Dr. Ellen Layne EGFR-NON AF SAO TOMEAN 29 mL/min/1.73m2 Critically low >=60 [facility] Comment on above: Performed By: #### C KRIS, BUN #### [facility] [address] [place], [place] [address] Dr. Ellen Layne Gastroenterology Office/Clin ic Noteon 05-18-2021 Gastroenterology Office/Clinic Note Chief Complaint ref by [facility]- abnormal labs HPI Staff This is a 60 year old female who presents today for a referral by [facility] for complaints of abnormal renal labs. [...] after patient or guardian consented to allow [employer] to record this visit. 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 ANABELLE: [...] mg= 1 tab(s), Oral, Daily Vitamin D, [address] International_Unit, Oral, qWeek Zanaflex 4 mg Tab, 4 mg= 1 tab(s), Oral, Daily Zinbryta, 150 mg, SubCutaneous, qMonth Allergies No Known Allergies Social History Alcohol - Denies Alcohol Use, 10/19/2010 Past, 10/19/2010 Substance Abuse - Denies Substance Abuse, (more content not included)... Normal [facility] Comment on above: Result [...] longer receiving treatment for. DVT Osteopenia Normal [facility] 08-22-2020 [facility] DONNA MATHEWS ([id number]) 1960 F Date Time Provider Department 08/22/20 QUINTEN LEWIS During your visit today, we recorded the following information about you: Shahrzad Hannah Pss 08/22/2020 2:27 PM Signed Patient calling in regards to the [employer] that provider advise patient call. States she ordered shoes and its been over a month but lost their number and has no way of getting in touch with them. Patient is requesting a call at [phone] Please advise. Alize Patton 08/23/2020 1:19 PM [...] LUTEIN ORAL) Take by mouth. - Fish Oil-[place]-3 Fatty Acids (FISH OIL) 340-1,000 mg cap [...] Status:Closed by SHAHRZAD DONIS on 07/04/21 Normal [facility] CNOVon 07-27-2020 CNOV Office Visit ([facility]OR[facility] ) DONNA MATHEWS ([id number]) 1960 F Date Time Provider Department 07/27/20 [...] Date Reviewed: 07/27/2020 Reviewed by: Alize Land [facility] - Fully Assessed Reason for Visit: [...] Encounter Status:Closed by QUINTEN LEWIS on 07/28/20 [facility] Urineon 06-06-2018 C Urine urine taken from [...] > Verified Vanc S 1 Verified Normal [facility] [place] [facility] Comment on above: Performed By: #### [id number] #### [facility] (DEFAULT) [address] [place] [address] Coding Summaryon 06-05-2018 Coding Summary CODING DATE: 06/05/2018 [facility] STATUS: Home PAYOR: Medicare MC APC DESCRIPTION 5372 Level 2 Urology and Related Services ADMIT DX: REASON FOR VISIT DX: R32 Unspecified urinary incontinence FINAL DX: PRINCIPAL: R32 Unspecified urinary incontinence SECONDARY: R93.41 Abnormal radiologic findings on diagnostic imaging of renal pelvis, ureter, or bladder G35 Multiple sclerosis N32.89 Other specified disorders of bladder PYMT PROC APC STAT DESCRIPTION DOCTOR NAME DATE 13817 6387 T Cystourethroscopy David Gonsales MD 06/03/2018 (separate procedure) NOTE: The code number assigned matches the documented diagnosis and / or procedure in the patient's chart. However, the narrative phrase printed from the coding software may appear abbreviated, or result in slightly different terminology. Coded By: Jessica Valiente Date Saved: 06/05/2018 07:20 am Normal [facility] History and Physicalon 06-05 History and Physical [id number]#1.0 [facility] Consent Formson 06-04-2018 Consent Forms [id number]#1.00 [facility] Outside Recordson 06-04-2018 Outside Records [id number]#1.00 [facility] Provider Orderson 06-04-2018 Protein mass conc [id number]#1.00 [facility] Inpatient Patient Summaryon 06-03-2018 Inpatient Patient Summary [address] [address] Patient Discharge Instructions Name: DONNA MATHEWS : 62 Patient Address: [address] [place] [address] Primary Care Provider: Name: Harjit Lopez MD After you are discharged if you find you have any questions, please, call [phone] ext [phone] to speak to a nurse. Discharge Diagnosis: [...] business decisions or sign any legal documents [facility] would like to thank you for allowing us to assist you with your healthcare needs. The following includes patient education materials and information regarding your injury/illness. DONNA MATHEWS has been given the following list of follow-up instructions, prescriptions, and patient education materials: Follow-up Instructions With: Address: When: David Gonsales [address], [address] [place], [place] [address] Business (1) With: Address: When: Harjit Lopez [address] [place] [address] Business (1) Medications During the course of [...] for Disease Control and Prevention November 2013 [facility] MAGR Intraoperative Recordon 06-03-2018 MAGR Intraoperative Record MAGR Intra-Op Record Summary Primary Physician: David Gonsales MD Finalized Date/Time: 06/03/18 16:22:13 Pt. Name: DONNA MATHEWS Nelly /Sex: 1960 FEMALE Med Rec #: [id number] Physician: David Gonsales MD Financial #: [id number] Pt. Type: D Room/Bed: / Admit/Disch: 06/03/18 [...] Entry 2 Entry 3 Case Attendee David Gonsaels MD, Barbara RN Nikolaus, Linda M Role Performed Surgeon - Primary Pharmacy Clerk Scrub Personnel Time In 06/03/18 15:45:00 06/03/18 [...] 06/03/18 16:21 MHBLONG Modify Pick List Normal [facility] MAGR Preoperative Recordon 0 06-03-2018 MAGR Preoperative Record MAGR Pre-Op Record Summary Primary Physician: David Gonsales MD Finalized Date/Time: 06/03/18 15:51:38 Pt. Name: DONNA MATHEWS D.O.B./Sex: 1960 FEMALE Med Rec #: [id number] Physician: David Gonsales MD Financial #: [id number] Pt. Type: D Room/Bed: / Admit/Disch: 06/03/18 [...] Signed By: Irlanda Knox RN 06/03/18 15:51 [facility] Patient Handouton 06-03-2018 Patient Handout [facility] Progress Note - Nurseon 05-10 Protein mass conc Talked with Yesenia @ [facility], instructed to have pt here @ 1030 on 06-03-18 and to fax Med. list-verbalized understanding. [Electronically Signed on: 06/02/2018 10:58 EDT] Cherise Espinoza RN [Verified on: 06/02/2018 10:58 EDT] Cherise Espinoza RN [facility] Vital Signs Date Time Vital Sign Value Performing Clinician Facility 05-02-2023 12:12-0500 Body height 167.6 cm Krystin Salcedo MD Work Phone: [employer] 05-02-2023 12:12-0500 Body mass index (BMI) [Ratio] 47.64 kg/m2 Krystin Salcedo MD Work Phone: [employer] 05-02-2023 12:12-0500 Body weight 133.81 kg Krystin Salcedo MD Work Phone: [employer] 05-02-2023 12:12-0500 Diastolic blood pressure 70 mm[Hg] Krystin Salcedo MD Work Phone: [employer] 05-02-2023 12:12-0500 Systolic blood pressure 138 mm[Hg] Krystin Salcedo MD Work Phone: [employer] 01-24-2021 09:20-0500 Body height 170.18 cm Kendell Garcia Other [facility] Other 01-24-2021 09:20-0500 Body mass index (BMI) [Ratio] 49.17 kg/m2 Kendell Garcia Other [employer] Other 01-24-2021 09:20-0500 Body weight 142.43 kg Kendell Garcia Other [employer] Other 01-24-2021 09:20-0500 Diastolic blood pressure 86 mm[Hg] Kendell Garcia Other [employer] Other 01-24-2021 09:20-0500 Systolic blood pressure 134 mm[Hg] Kendell Garcia Other [employer] Other Encounters Encounter Date Encounter Type Care Provider Facility Start: 11-19-2023 End: 11-19-2023 ambulatory HONORIO MAY Not Available Start: 10-21-2023 End: 10-21-2023 ambulatory [facility] Mervin [facility] Start: 09-26-2023 End: 09-26-2023 ambulatory HONORIO MAY Not Available Start: 09-19-2023 End: 10-10-2023 ambulatory [facility] Funmilayo [facility] Start: 08-16-2023 End: 08-16-2023 ambulatory TODD Garza [facility] Start: 08-01-2023 End: 08-01-2023 ambulatory KRYSTIN Vega [facility] Start: 07-12-2023 End: 07-12-2023 ambulatory GABRIELLE CONTRERAS [facility] Start: 07-08-2023 End: 07-09-2023 ambulatory Fausto Vasquez MD Facility:[facility] Start: 06-18-2023 End: 06-18-2023 ambulatory ADDIS Vega WISE [facility] Start: 06-14-2023 End: 06-14-2023 ambulatory KRYSTIN Vega [facility] Start: 06-03-2023 End: 06-03-2023 ambulatory KRYSTIN Vega [facility] Start: 05-31-2023 End: 06-02-2023 ambulatory TODD Garza [facility] Start: 05-31-2023 End: 06-02-2023 ambulatory AMY YAÑEZ [facility] Start: 05-30-2023 End: 06-01-2023 ambulatory KRYSTIN Silvia [facility] Start: 05-02-2023 End: 05-02-2023 ambulatory KRYSTIN Silvia [facility] Start: 05-02-2023 End: 05-02-2023 Postop follow up visit related to original px Krystin Salcedo MD Work Phone: [facility] Comment on above: Morbid obesity ([facility]) (Primary Dx); ESRD (end stage renal disease) ([facility]); Arteriovenous fistula stenosis, initial encounter ([facility]) Start: 04-17-2023 End: 04-17-2023 ambulatory ZIYAD ULRICH [facility] Start: 04-12-2023 End: 05-10-2023 ambulatory [facility] Start: 04-01-2023 End: 04-01-2023 ambulatory ZIYAD ULRICH [facility] Start: 03-05-2023 Telephone encounter Elba Ramirez [facility]ug[facility] Start: 02-28-2023 End: 03-11-2023 ambulatory [facility] Start: 02-25-2023 End: 02-25-2023 Evaluation and management of inpatient ANURAG ISABEL [facility] Start: 02-25-2023 End: 02-25-2023 Evaluation and management of inpatient KRYSTIN SALCEDO [facility] Start: 02-19-2023 End: 02-19-2023 ambulatory Rosina Underwood Raudelsergey Facility:[facility] Start: 07-04-2022 End: 07-05-2022 ambulatory NARENDRANATH LAKSHMIPATHY [...] 02-21-2021 End: 02-21-2021 ambulatory Kendell Garcia Other [employer] Other Start: 12-14-2021 Telephone encounter Kendell Garcia [facility] Start: 01-24-2021 End: 01-24-2021 ambulatory Kendell Garcia Other [facility] Other Start: 01-24-2021 Office outpatient ne w 45 minutes Kendell Garcia [facility] Start: 08-22-2020 Telephone encounter José Lewis DPM Work Phone: Orthopaedics Comment on above: Question Start: 07-09-2018 End: 07-09-2018 Patient encounter procedure DAVID GONSALES [facility] Start: 06-03-2018 End: 06-26-2018 Patient encounter procedure David Gonsales Facility:[facility] Procedures Date Procedure Procedure Detail Performing Clinician Start: 10-21-2023 Follow-up visit Follow-up BRANDON BOB Start: 09-13-2022 Adult depression scr eening assessment Elba Mary Start: 07-09-2018 DISCHARGE PATIENT MARTIN GONSALES Plan of Treatment Date Care Activity Detail Author Start: 12-08-2028 Subsequent hospital visit by physician 12/08/2028 7:37 AM EDT Hospital Encounter [facility] [address] [place] [address] Harjit Lopez MD [address] [place] [address] Chronic kidney disease (Primary Dx); Anemia; Multiple sclerosis (CMS-HCC); CKD (chronic kidney disease) [facility] Comment on above: Chronic kidney disea se (Primary Dx); Anemia; Multiple sclerosis (CMS-HCC); CKD (chronic kidney disease) Start: 01-24-2025 LIPID SCREEN LIPID SCREEN [facility] Start: 05-02-2024 Adult BMI Screening Adult BMI Screen ing [employer] [employer] Start: 05-02-2024 Tobacco [facility]ening [facility] Start: 02-26-2024 Adult BMI Screening Adult BMI Screen ing [employer] Start: 02-26-2024 Tobacco Screening [facility] Start: 09-14-2023 Depression Screening Depression Scre ening [facility] Start: 05-09-2023 End: 05-09-2023 Patient encounter procedure 05/09/2023 1:30 PM EST Office Visit [facility] [address] [place] [id number] Ivette Sanchez, SPEECH LANGUAGE SPECIALIST-CLINICAL LABORATORY AIDES TEACHER [address] [place] [address] [facility] Start: 05-02-2023 End: 05-02-2024 RFA Lower extremity vessels - left Views W contrast IR angiography extremity left Imaging Routine Morbid obesity ([facility]) ESRD (end stage renal disease) ([facility]) Arteriovenous fistula stenosis, initial encounter ([facility]) Expected: 05/02/2023, Expires: 05/02/2024 [facility] Work Phone: Comment on above: Expected: 05/02/2023 , Expires: 05/02/2024 Start: 03-25-2023 End: 03-25-2023 Patient encounter procedure 03/25/2023 2:10 PM EST [facility] [address] [place] [phone] Alvaro Howard MD [address] [place] [address], [address] [place] [address] 791- [facility] Start: 11-09-2022 COVID-19 Vaccine ( season) COVID-19 Vaccine ( season) [facility] Start: 11-09-2022 Influenza vaccination Influenza Vacc ine [facility] Start: 11-09-2021 Influenza vaccination INFLUENZ A (Season Ended) [facility] Start: 08-28-2020 COVID-19 VACCINE (3 - Booster for Pfizer series) COVID-19 VACCINE (3 - Booster for Pfizer series) [facility] Start: 05-25-2017 DIABETES SCREEN DIABETES SCREEN [facility] Start: 10-26-2011 Administration of varicella zoster vaccine Zoster (Shingles) Vaccine (1 of 2) [facility] Start: 10-26-2011 SHINGRIX VACCINE (1 of 2) SHINGRIX VACCINE (1 of 2) [facility] Start: 2006 COLOGUARD (FIT-DNA) COLOGUARD (FIT-D NA) [facility] Start: 2006 Colonoscopy COLONOSCOPY [facility] Start: 2006 COLORECTAL CANCER SCREENING COLORECTAL CANCER SCREENING [facility] Start: [address] COLONOGRAPHY [facility] Start: 2006 FECAL OCCULT BLOOD FECAL OCCULT BLOO D [facility] Start: 2006 SIGMOIDOSCOPY SIGMOIDOSCOPY [facility] Start: 2001 Mammography MAMMOGRAM [facility] Start: 10-26-1991 HPV TESTING HPV TESTING [facility] Start: 1982 PAP TESTING PAP TESTING [facility] Start: 1982 Screening for malign ant neoplasm of cervix Pap Smear [facility] Start: 1980 DTaP,Tdap and Td Vaccines (1 - Tdap) DTaP,Tdap and Td Vaccines (1 - Tdap) [facility] Start: 1980 Urine microalbumin profile DTAP,TDAP,TD (1 - Tdap) [facility] Start: 10-26-1979 Adult BMI Follow Up Plan Adult BMI Follow Up Plan [facility] Start: 10-26-1979 HEPATITIS C SCREENING HEPATITIS C SC REENING [facility] Start: 10-26-1979 HIV SCREENING HIV SCREENING [facility] Start: 1973 Adult depression screening assessment DEPRESSION SCREENING [facility] Immunizations Immunization Date Immunization Notes Care Provider Sandeep parra 11-03-2018 influenza, injectabl e, quadrivalent, preservative free [facility] 11-03-2018 influenza virus vaccine, unspecified formulation [facility] 10-14-2018 influenza, injectabl e, quadrivalent, preservative free [facility] 08-11-2018 influenza, injectabl e, quadrivalent, preservative free [facility] 12-22-2017 pneumococcal polysaccharide vaccine, 23 valent [facility] 11-09-2016 influenza, injectabl e, quadrivalent, preservative free [facility] 12-09-2012 pneumococcal polysaccharide vaccine, 23 valent Quinten Lewis DPM Work Phone: [facility] Payers Date Payer Category Payer Self-pay [id number] 2023 Private Health Insurance [facility] PLUS [id number] 2023-Present [phone] [address] [address] [place] [address] [id number]. [id number] 2022 Medicare [id number] [id number]. [id number] 2020 Medicaid MEDICAID [facility] MEDICAID [id number] 2020-Present [phone] [address] [place] [address] Medicaid [id number]. [id number] 2017 Medicaid [id number]. 1.13.424.2. [id number] 2002 Medicare MEDICARE MEDICAR E A AND B [id number] 2002-Present [phone] [address] [address] [place] [address] Medicare [id number] 1.2.840.343244.1.13.159.2. [id number] 1960 Unknown [id number] 2.16.840.1.300098.3.579.2. 718 1960 Unknown [id number] 2.16.840.1.169827.3.579.2. 177 1960 Unknown [id number] 2.16.840.1.238170.3.579.2. 593 1961 Unknown [id number] 2.16.840.1.970132.3.579.2. 593 1961 Unknown [id number] 2.16.840.1.929201.3.579.2. 593 1961 Unknown [id number] 2.16.840.1.923877.3.579.2. 593 1961 Unknown [id number] 2.16.840.1.241789.3.579.2. 593 1961 Unknown [id number] 2.16.840.1.440615.3.579.2. 593 1961 Unknown [id number] 2.16.840.1.299056.3.579.2. 593 1961 Unknown [id number] 2.16.840.1.951629.3.579.2. 593 1961 Unknown [id number] 2.16.840.1.074232.3.579.2. 593 1961 Unknown [id number] 2.16.840.1.384029.3.579.2. 593 1961 Unknown [id number] 2.16.840.1.841801.3.579.2. 593 1961 Unknown [id number] 2.16.840.1.275598.3.579.2. 1286 1961 Unknown [id number] 2.16.840.1.119785.3.579.2. 196 1960 Unknown [id number] 2.16.840.1.974998.3.579.2. 1286 1961 Unknown [id number] 2.16.840.1.923082.3.579.2. 1286 1961 Unknown [id number] 2.16.840.1.393024.3.579.2. 1286 1961 Unknown [id number] 2.16.840.1.696260.3.579.2. 1286 1961 Unknown [id number] 2.16.840.1.768748.3.579.2. 1285 1961 Unknown [id number] 2.16.840.1.991759.3.579.2. 1285 1961 Unknown [id number] 2.16.840.1.860145.3.579.2. 1285 1961 Unknown [id number] 2.16.840.1.664410.3.579.2. 1285 1961 Unknown [id number] 2.16.840.1.591183.3.579.2. 1285 1961 Unknown [id number] 2.16.840.1.949303.3.579.2. 1285 1961 Unknown [id number] 2.16.840.1.957959.3.579.2. 1285 1961 Unknown [id number] 2.16.840.1.914727.3.579.2. 1285 1961 Unknown [id number] 2.16.840.1.303277.3.579.2. 1285 1961 Unknown [id number] 2.16.840.1.433347.3.579.2. 1285 1961 Unknown [id number] 2.16.840.1.463079.3.579.2. 1285 1961 Unknown [id number] 2.16.840.1.820182.3.579.2. 1285 1961 Unknown [id number] 2.16.840.1.755519.3.579.2. 1285 1961 Unknown [id number] 2.16.840.1.139326.3.579.2. 1285 1961 Unknown [id number] 2.16.840.1.576146.3.579.2. 9 1960 Unknown [id number] 2.16.840.1.397311.3.579.2. 1259 1959 Medicaid [id number] 1959 Medicare [id number] 1959 Medicare [id number] Private Health Insurance [facility] [id number] Unknown [id number] 2.16.840.1.298972.3.579.2. 531 Social History Date Type Detail Facility Start: 03-27-2013 End: 09-13-2022 Tobacco smoking status NHIS Never smoked tobacco [facility] Start: 03-27-2013 End: 09-13-2022 Tobacco use and exposure Smokeless tobacco non-user [facility] Start: 05-05-2014 Alcohol intake Current drinke r of alcohol (finding) [facility] Start: 03-27-2013 History SDOH Alcohol Comment Occasional [facility] Start: 1960 Sex Assigned At Not on file [facility] Start: 06-27-2020 End: 07-27-2020 Exposure to SARS-CoV-2 (event) Not sure [facility] Start: 03-22-2020 End: 09-13-2022 [facility] Assigned At [facility] [employer] Other Start: 02-26-2023 End: 05-02-2023 Alcohol intake Ex-drinker (finding) [facility] [employer] Start: 03-22-2020 End: 09-13-2022 History of Social function [facility] How often to you hav e a drink containing alcohol? Monthly or less [facility] How many standard drinks containing alcohol do you have on a typical day? 1 or 2 [facility] How often do you hav e 6 or more drinks on 1 occasion? Never [facility] Adolescent depressio n screening assessment 0 [facility] Start: 1960 Sex Assigned At Female F [facility] Medical Equipment Procedure Code Equipment Code Equipment Origin al Text Equipment Identifier Dates Graft Bn Canc 30 ml Allgrft - [id number] Start: 05-20-2014 Comment on above: Description: GRAFT B ONE CANC. Gwm-Qk-M-Kind Implant - [id number] Start: 10-01-2013 Comment on above: Description: Glenis underwood Spiral Blade Hdq-Xh-Z-Kind Implant - [id number] Start: 05-20-2014 Comment on above: Description: 4.5 mm VA-LCP plate, C1713 PLATE Ibc-Ey-H-Kind Implant - [id number] Start: 05-20-2014 Comment on above: Description: 5.0 x 3 4mm locking screw, C1713 SCREW Aan-Mc-L-Kind Implant - [id number] Start: 05-20-2014 Comment on above: Description: 5.0 mm x 60mm locking screw, C1713 Psb-Ws-X-Kind Implant - [id number] Start: 05-20-2014 Comment on above: Description: 5.0 mm x 65mm locking screw, C1713 SCREW Gxr-Xl-T-Kind Implant - [id number] Start: 05-20-2014 Comment on above: Description: 5.0 mm x 70 mm locking screw, C1713 SCREW Nail 12mm 380mm Fem Nlex Im - [id number] Start: 10-01-2013 Comment on above: Description: C1713 N AIL 12MM 380MM FEM NLEX IM Cap End 0mm Fem Ext Strdr Rcs - [id number] Start: 10-01-2013 Screw Bn 5mm 44m m Nlex Ti Ft - [id number] Start: 10-01-2013 Screw Bn 5mm 40m m Nlex Ti Ft - [id number] Start: 10-01-2013 Screw Bn 5mm 66m m Nlex Ti Fem - [id number] Start: 10-01-2013 Comment on above: Description: C1713 S CREW BN 5MM 66MM NLEX TI FEM Screw Bn 4.5mm 40mm Lcp Ss - [id number] Start: 05-20-2014 Screw Bn 4.5mm 42mm Lcp Ss - [id number] Start: 05-20-2014 Screw Bn 4.5mm 46mm Lcp Ss - [id number] Start: 05-20-2014 Screw Bn 4.5mm 32mm Lcp Ss - [id number] Start: 05-20-2014 Screw Bn 4.5mm 34mm Lcp Ss - [id number] Start: 05-20-2014 Screw Bn 4.5mm 36mm Lcp Ss - [id number] Start: 05-20-2014 Screw Bn 4.5mm 38mm Lc Dcp Dhs - [id number] Start: 05-20-2014 Set Cth 24cm 14f r 18ga Str Triniflex Splt3 Bsc Intro Ndl Gw Rpl [id number] - [id number])MQRN 670, [id number] FDA Start: 09-07-2022 Clinical Notes [...] Vic Nickerson MD on 08/16/2023 2:53 PM [facility] 05-02-2023 History of Presen t illness [...] of Study: 04/17/23 Ordering Provider: Ziyad Ulrich APRN-CLINICAL LABORATORY AIDES TEACHER Clinical Indications: ESRD (end stage renal disease) [...] all orders for this visit: Morbid obesity ([facility]) ESRD (end stage renal disease) [facility] [...] week. Patient will need to travel from [facility]. Their phone number is [phone]. documented in this encounter [facility] 03-05-2023 Miscellaneous Notes DARY CALLED TO CANCEL SHE DOES NOT WANT TO RESCHEDULE AT THIS TIME documented in this encounter [facility] 03-05-2023 Telephone encounter Note DARY CALLED TO CANCEL SHE DOES NOT WANT TO RESCHEDULE AT THIS TIME [facility] 06-08-2022 Note PROCEDURE: XR SHOULD ER LT 2V or > COMPARISON: None. HISTORY: Tear of left rotator cuff FINDINGS: BONES:No acute fracture or dislocation. Moderate acromioclavicular joint osteoarthropathy. Severe glenohumeral joint osteoarthritis SOFT TISSUES:Negative. No visible soft tissue swelling. EFFUSION:None visible. OTHER: Negative. IMPRESSION: Moderate to severe osteoarthritis Electronically authenticated by: EL SAUNDERS Date: 2022-06-08 07:41 [facility] 06-07-2022 Note CONSULTATION CONSULTATION DATE: 06/07/2022 TO: [...] our patients to inform us about any tccm-rlk-bkthzwn medications or herbal remedies/nutritional supplements/alternative remedies. 2. [...] options with their primary care provider. [facility] 04-12-2022 Note CONSULTATION CONSULTATION DATE: 04/12/2022 [...] Patient is in agreement to this. [facility] 01-25-2022 Note CONSULTATION CONSULTATION DATE: 01/25/2022 [...] does take multiple medications that affect her FRY COOK, so this is a possible reason of [...] continues to answer my questions appropriately. [facility] 10-31-2021 Note CONSULTATION CONSULTATION DATE: 10/31/2021 [...] flexion and abduction of the left shoulder. Lead Pastor strength is maintained however poor. The patient [...] Kenia Beck but unable to verify) [facility] 10-31-2021 Note CONSULTATION PROCEDURE DATE: 10/31/2021 [...] up in the office as needed. [facility] 10-18-2021 Note CONSULTATION CONSULTATION DATE: 10/18/2021 This is a 60-year-old female with a history of MS who resides in a alf facility. She is following up for a [...] agrees with this plan of care. [facility] 07-27-2021 Note CONSULTATION CONSULTATION DATE: 07/27/2021 [...] PLAN: An order was written for the alf facility to apply menthol heat rub twice [...] of care and all questions were answered. [facility] Signed and Approved by: ABHINAV IGNACIO . 07/31/2021 15:07:00 [facility] 01-24-2021 Evaluation note Encounter Date Diagnosis [...] her ability to ambulate very very poor [employer] Other 06-15-2021 Miscellaneous Notes* Telephone Encounter - [...] them. Patient is requesting a call at [phone] Please advise. [facility] NoteHNO ID: [id number] Author: Quinten Lewis DPM Service: ? Author [...] follow-up as needed pending progress. Quinten Lewis, [facility] noteNo InformationNort [employer] Other evaluation note* Diagnosis Chronic kidney disease- Primary Chronic kidney disease, unspecified Anemia Unspecified anemia Multiple sclerosis ([facility]) Multiple sclerosis CKD (chronic kidney disease) Chronic kidney disease, unspecified Morbid obesity ([facility])- Primary Morbid obesity ESRD (end stage renal disease) ([facility] End stage renal disease Arteriovenous fistula stenosis, initial encounter ([facility]) documented in this encounter [facility] noteNo assessment information available [facility] Work Phone: History general Narrative - Reported* Type Description Date Medical History multiple sclerosis Medical History bilateral hearing loss Medical History hypertension Medical History diabetes mallitus Medical History thrombacytopenia Medical History kidney disease Surgical History tubal ligation Surgical History knee replacement 2006 Surgical History Foot Surgery-LEFT 2007,2008,200 9 Hospitalization History See Above [place] [employer] Other InstructionsNot on filedocumented in this encounter [facility] GlueInstructionsNot on filedocumented in this encounter [facility] HospitalIntelliworks SystemReason for visit Narrativereferral [place] Rex Cervical radiculopathyNorth [employer] Other reason for visit NarrativePain Medicine Referral UpdateNocox [place] [employer] Other Summary Purpose Family History No Family History Records Found Relationship Condition Age at Onset Recorded Date/T jacqui Not Specified Type 2 diabetes mellitus Unknown Advance Directives No Advanced Directives Records FoundDocuments on File Type Date Recorded Patient Identity Management Consultant Expl anation Advance Directive(s) 12/04/2013 5:55 PM Latest Code Status on File Code Status Date Activated Date Inactivated Comments Full Code 09/13/2022 9:32 AM 09/20/2022 3:29 AM Latest Code Status on File Code Status Date Activated Date Inactivated Comments Full Code 09/13/2022 9:32 AM 09/20/2022 3:29 AM Hospital Course Note [facility] SURGERY Clinical Discharge Summary PERSON INFORMATION Name DONNA MATHEWS Age 57 Years 62 Sex FEMALE Language Polish PCP Harjit Lopez MD Marital Status Single Med Service Ambulatory Surgery Acct# Arrival 06/03/18 12:10:14 Visit Reason SURGERY - CYSTOSCOPY Acuity LOS 006 05:41 Address: [address] [place] [id number] Comment: PROVIDER INFORMATION VITALS INFORMATION Vital Sign [...] Diagnosis 1 Neck pain (M54.2) Referral Organization [facility] urosurgery Referring Provider First Name Kendell Referring Provider Last Name Radha Referring Provider Specialty Neurologica l Surgery Referred Organization [facility] Referred Provider Jr. Galindo William Referred Address [address] [facility],[place], [place],[address] Referred Provider Specialty Pain Medicin e Referral Priority Routine Specialty Diagnoses / Procedures Referred By Laurent talavera Referred To Contact Radiology Diagnoses Morbid obesity ([facility]) ESRD (end stage renal disease) ([facility]) Arteriovenous fistula stenosis, initial encounter ([facility]) Procedures IR angiography extremity left Krystin Salcedo MD [address] [place] [address], [address] [place] [address] Referral ID Status Reason Start Date Expiration Date V isits Requested Visits Authorized [id number] Pending Review 05/02/2023 05/01/2024 1 1 Additional Source Comments INFORMATION SOURCE (unrecogn ized section and content) DATE CREATED AUTHOR 06/26/2018 [facility] DATE CREATED AUTHOR AUTHOR'S ORGANIZ ATION 07/15/2018 [facility] DATE CREATED AUTHOR AUTHOR'S ORGANIZ ATION 06/05/2021 [facility] DATE CREATED AUTHOR AUTHOR'S ORGANIZ ATION 07/07/2021 [facility] DATE CREATED AUTHOR AUTHOR'S ORGANIZ ATION 07/08/2022 [facility] DATE CREATED AUTHOR AUTHOR'S ORGANIZ ATION [facility]/02/2023 [facility] DATE CREATED AUTHOR AUTHOR'S ORGANIZ ATION 07/10/[address] [facility] DATE CREATED AUTHOR AUTHOR'S ORGANIZ ATION 08/18/2023 [facility] DATE CREATED AUTHOR AUTHOR'S ORGANIZ ATION 09/03/2023 [facility] DATE CREATED AUTHOR AUTHOR'S ORGANIZ ATION 10/22/2023 [facility] DATE CREATED AUTHOR AUTHOR'S ORGANIZ ATION 11/21/2023 [facility] EPIC Source Comments (unrecognize d section and content) In the event this informatio n is protected by the Federal Confidentiality of Alcohol and Drug Abuse Patient Records regulations: The Federal rules restrict any use of the information to criminally investigate or prosecute any alcohol or drug abuse patient.[facility] Reason for Visit (unrecogniz ed section and content) Reason Comments Question Care Teams (unrecognized sec tion and content) [employer] Relationship Specialty Start Date End Date Doug Ornelas MD [address] [place] [address] PCP - General 01/18/04 Christopher Lema Referring Podiatry 03/31/13 [employer] Relationship Specialty Start Date End Date Todd George MD [address] [place], [place] [address] PCP - General Internal Medicine 09/13/22 [employer] Relationship Specialty Start Date End Date Todd George MD [address] [place] [address] PCP - General Internal Medicine 09/13/22 Goals [...] BE BASED ON THE PRIMARY CLINICAL RECORDS. [facility]. provides no warranty or guarantee of the accuracy or completeness of information in this document.
--- NOTE | 2023-12-04 14:36 | P.CN_ITS ---
Consult Note: HPI Data of Consult Patient: known to practice within the last 3 years Requesting Physician: Estella Hayes NP Primary Care Provider: LIYAH STOLL Consult Narrative Reason for consult: f/u Narrative: Shirley Lane a pleasant 62 year old female presents for evaluation and management of chronic left shoulder and left arm pain. Today pain 2/10 increasing to 10/10 sharp pain with weakness of LUE. Previous MRI of left shoulder from 07/01 reveals full rotator cuff tear. Patient has had mild benefit from previous shoulder and trigger point injections through our office. Patient has ESRD on dialysis. Patient has been deemed non surgical by orthopedic surgery. Patients medications managed by [facility] facility. recently und erwent left suprascapular/axillary nerve block with >80% improvement in pain immediately following and 3 hours after procedure, pt noted no functional improvement. cc:: CC: Estella Hayes NP Review of Systems ROS Status of ROS 10 or more systems reviewed and unremark able except as noted in history and below Musculoskeletal Reports: joint pain PFSH PFSH Medical History Neck pain ?M54.2 - Cervicalgia (ICD-10) Low back pain ?M54.50 - Low back pain, unspecified (ICD-10) Thrombosis ?I82.90 - Acute embolism and thrombosis of unspecified vein (ICD-10) Multiple sclerosis ?G35 - Multiple sclerosis (ICD-10) Hearing deficit ?H91.90 - Unspecified hearing loss, unspecified ear (ICD-10) Stroke ?I63.9 - Cerebral infarction, unspecified (ICD-10) Acid reflux ?K21.9 - Gastro-esophageal reflux disease without esophagitis (ICD-10) Obesity ?E66.9 - Obesity, unspecified (ICD-10) Diabetes ?E11.9 - Type 2 diabetes mellitus without complications (ICD-10) Kidney failure ?N19 - Unspecified kidney failure (ICD-10) High cholesterol ?E78.00 - Pure hypercholesterolemia, unspecified (ICD-10) Hypertension ?I10 - Essential (primary) hypertension (ICD-10) Surgical History History of total knee arthroplasty ?Z96.659 - Presence of unspecified artificial knee joint (ICD-10) H/O lumbosacral spine surgery ?Z98.890 - Other specified postprocedural states (ICD-10) History of tonsillectomy and adenoidectomy ?Z90.89 - Acquired absence of other organs (ICD-10) H/O knee surgery ?Z98.890 - Other specified postprocedural states (ICD-10) H/O tubal ligation ?Z98.51 - Tubal ligation status (ICD-10) H/O foot surgery ?Z98.890 - Other specified postprocedural states (ICD-10) Hx of cholecystectomy ?Z90.49 - Acquired absence of other specified parts of digestive tract (ICD- 10) H/O gastric bypass ?Z98.84 - Bariatric surgery status (ICD-10) Meds Home Medications and Allergies Home Medications ?Medication ?Instructions ?Recorded ?Confirmed ?Type Lactobacillus acidophilus 250 500 mmu cells PO DAILY 09/14/22 11/25/23 History million cell capsule (Probiotic Acidophilus) acetaminophen 650 mg 650 mg PO .q6hr PRN pain 09/14/22 11/25/23 History tablet,extended release (8 Hour Pain Reliever) amlodipine 5 mg tablet (Norvasc) 5 mg PO DAILY 09/14/22 11/25/23 History ascorbic acid (vitamin C) 500 mg 500 mg PO DAILY 09/14/22 11/25/23 History tablet,extended release (C-500) aspirin 81 mg tablet,delayed 81 mg PO DAILY 09/14/22 11/25/23 History release atorvastatin 80 mg tablet 80 mg PO QPM 09/14/22 11/25/23 History biotin 10 mg tablet 10 mg PO DAILY 09/14/22 11/25/23 History famotidine 20 mg tablet 20 mg PO DAILY 09/14/22 11/25/23 History ferrous sulfate 325 mg (65 mg 325 mg PO DAILY 09/14/22 11/25/23 History iron) tablet (Feosol) folic acid 1 mg tablet 1 mg PO DAILY 09/14/22 11/25/23 History glucosamine sulfate 500 mg tablet 500 mg PO TID 09/14/22 11/25/23 History (Glucosamine) lactulose 10 gram/15 mL oral PO QID 09/14/22 History solution lutein 6 mg capsule 6 mg PO DAILY 09/14/22 11/25/23 History magnesium hydroxide 400 mg/5 mL 30 ml PO DAILY PRN constipation 09/14/22 11/25/23 History oral suspension (Dulcolax (magnesium hydroxide)) melatonin 3 mg capsule 3 mg PO DAILY PRN sleep 09/14/22 11/25/23 History mirabegron 25 mg tablet,extended 25 mg PO DAILY 09/14/22 11/25/23 History release 24 hr (Myrbetriq) modafinil 100 mg tablet 100 mg PO QDAY 09/14/22 11/25/23 History multivitamin 1 tab PO DAILY 09/14/22 11/25/23 History nystatin 100,000 unit/gram topical 1 applic topical BID 09/14/22 11/25/23 History powder omega 9-jvh-wag-fish oil 1,000 mg 1 cap PO DAILY 09/14/22 11/25/23 History (120 mg-180 mg) capsule (Fish Oil) oxcarbazepine 300 mg tablet 300 mg PO QDAY 09/14/22 11/25/23 History oxycodone 10 mg tablet 10 mg PO QDAY 09/14/22 11/25/23 History polyethylene glycol 3350 17 17 g PO DAILY 09/14/22 11/25/23 History gram/dose oral powder (ClearLax) potassium citrate 10 mEq (1,080 10 meq PO DAILY 09/14/22 11/25/23 History mg) tablet,extended release pregabalin 75 mg capsule (Lyrica) 75 mg PO BID 09/14/22 11/25/23 History sertraline 50 mg tablet (Zoloft) 50 mg PO DAILY 09/14/22 11/25/23 History tizanidine 4 mg capsule (Zanaflex) 4 mg PO Q12H PRN muscle spasticity 09/14/22 11/25/23 History tramadol 50 mg tablet 50 mg PO Q8H PRN pain 09/14/22 11/25/23 History trazodone 50 mg tablet 25 mg PO .hs 09/14/22 11/25/23 History vitamin A-vitamin C-vit E-min 1 tab PO DAILY 09/14/22 11/25/23 History tablet (Ocutabs tablet) vitamin B complex (B 1 tab PO DAILY 09/14/22 11/25/23 History Complex-Vitamin B12 tablet) Allergies Allergy/AdvReac Type Severity Reaction Status Date / Time No Known Drug Allergies Allergy Verified 09/25/22 10:30 Exam Narrative Exam Narrative: hard of hearing Constitutional Documenting provider has reviewed patient's vital signs: yes Common normals: no apparent distress, oriented x3, healthy appearing, alert and well nourished General appearance: cooperative Nutritional appearance: obese HENMT Common normals: normocephalic, hearing grossly normal bilaterally and moist oral mucous membranes Head and scalp: normocephalic Eye Common normals: PERRL Pupil: PERRL Neck & C-Spine Common normals: full ROM General: normal visual inspection Chest Common normals: inspection of chest normal Respiratory Common normals: normal respiratory effort, no retractions and no use of accessory muscles Extremity Common normals: normal to inspection Left upper extremity: shoulder joint and upper arm Other: tender to touch, strength 4/5 in LUE. pain over ac joint, suprascapular/axillary nerves, limited ROM. unable to raise arm over head, unable to perform active cross body/posterior lift off/scratch test Neuro Common normals: oriented x3, CN's II-XII intact bilaterally, moves all extremities, no focal motor deficits, no sensory deficits noted and deep tendon reflexes 2+ bilaterally Sensorium/orientation: alert Motor exam: strength 5/5 throughout and no movement abnormalities noted Psych Common normals: mental status grossly normal, thought process normal, cooperative, affect normal, speech normal and activity/motor behavior normal Speech: normal speech Thought process: normal thought process Results Additional Findings Additional findings: If on a controlled substance or opioids, I have checked an [place] report on this patient and there are no aberrancies noted in the prescribing history.??If on a controlled substance or opioid a drug screen was completed and reviewed within the last year, and if there has not been a drug screen completed we ordered one today to monitor higher risk, state monitored pain medication use. As part of providing excellent, safe, comprehensive care, the following was completed at our patient's visit: 1. A medication reconciliation and review to ensure accurate knowledge of current/active medications, including asking our patients to inform us about any ulvo-pyj-vvhxnin medications or herbal remedies/nutritional supplements/alternative remedies. 2. A review to specifically ensure our patients have had annual screening for screening for depression, screening for tobacco use, and screening for unhealthy alcohol use. For concerning screenings had a discussion with the patient, provided patient education, and recommended follow-up with primary care provider when appropriate. If patient noted with a risk of falling, they received education on strength, gait, and balance training to prevent future risk of falling. 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
== END 2023-12-04 13:47 | disposition home or self-care (01) ==
LOC: PM 13:46
PROVIDERS: PCP Internal Medicine; Visit Provider Nurse Practitioner
DX: M25.552 Pain in left hip (principal); G58.8 Other specified mononeuropathies; M79.18 Myalgia, other site
CPT/HCPCS: G0463

== ENCOUNTER 2024-05-29 07:38 | Outpatient (RCR) | payer MEDICARE, MEDICAID, SELFPAY ==
[2024-05-29 10:29] VITALS: BP 119/66; PULSE 80; TEMP 35.8; O2SAT 91
[2024-05-29] MEDS: 0.9 % SODIUM CHLORIDE 500 ML IV (10:30)
[2024-05-29] MEDS: ACETAMINOPHEN 325 MG TABLET 650 MG PO (10:44)
[2024-05-29] MEDS: METHYLPREDNISOLONE SOD SUCC PF 125 MG/2 ML VIAL IVP (10:49)
[2024-05-29] MEDS: DIPHENHYDRAMINE HCL 50 MG/ML VIAL IVP (10:50)
[2024-05-29] MEDS: OCRELIZUMAB 600 MG in 0.9 % SODIUM CHLORIDE 500 ML 100 MG IV (11:19)
--- NOTE | 2024-05-29 11:25 | PC.NURSE ---
ns 500 ml infused, IV site clear preop meds given as documented. Ocravus infusion initiated as ordered, see MAR. Pt instructed to notify staff of any shortness of breath, itching, chest pain etc. patient verbalizes understanding. Lunch ordered.
--- NOTE | 2024-05-29 15:22 | PC.NURSE ---
1230 Tolerating infusion without any s/s of rxn, titrated as documented in MAY. 1330 Tolerated infusion. No s/s of reaction
--- NOTE | 2024-05-29 15:23 | PC.NURSE ---
1300 eats 100% of lunch. dozes on and off prior to lunch.
[2024-05-29 15:24] VITALS: BP 118/78; PULSE 78; TEMP 36.6; O2SAT 94
== END 2024-06-01 10:19 | disposition home or self-care (01) ==
LOC: INF 07:38
PROVIDERS: PCP Internal Medicine; Visit Provider Psychiatry & Neurology Neurology
DX: G35 Multiple sclerosis (principal)
CPT/HCPCS: 96365; 96366; 96375; J1200; J2350; J2919

== ENCOUNTER 2024-06-02 14:48 | Outpatient (OUT) | payer MEDICARE, MEDICAID, SELFPAY ==
--- NOTE | 2024-06-02 14:51 | MM_ITS ---
Patient Name: DONNA MATHEWS MR#: [id number] : 1960 Exam Date: 06/02/2024 Ordering Doctor: DR LIYAH STOLL M.D. RADIOLOGY REPORT PROCEDURE: MM SCREENING MAMMO BI COMPARISON: MM SCREENING MAMMO BI, 05/28/2023. MG MAMM SCREEN SAMAN W CAD, 05/10/2022. INDICATIONS: Screening Calculator Name NCI Breast Cancer Risk Assessment Tool 5 Year Breast Cancer Risk 2.00% Lifetime Breast Cancer Risk 9.00% Personal Breast Cancer No Personal Ovarian Cancer No Treatments None Family Cancers Cousin-maternal with breast cancer at age 45; Aunt-maternal with lung cancer at age 72; Cousin-maternal with rectal cancer at age 52. LOCATION: [facility] BREAST COMPOSITION: The breasts are almost entirely fatty. FINDINGS: Limited secondary to patient positioning.k RIGHT BREAST: No significant suspicious finding. LEFT BREAST: No significant suspicious finding. DIAGNOSTIC CATEGORY 1--NEGATIVE. RECOMMENDATIONS: ROUTINE MAMMOGRAM AND CLINICAL EVALUATION IN 12 MONTHS. PLEASE NOTE: A NORMAL MAMMOGRAM DOES NOT EXCLUDE THE POSSIBILITY OF BREAST CANCER. A CLINICALLY SUSPICIOUS PALPABLE LUMP SHOULD BE BIOPSIED. Dictated by: Sajan Clarke DO on 06/02/2024 at 15:44 Approved by: Sajan Clarke DO on 06/02/2024 at 15:49
== END 2024-06-02 14:49 | disposition home or self-care (01) ==
LOC: MAMMO 14:48
PROVIDERS: PCP Internal Medicine; Visit Provider Internal Medicine
DX: Z12.31 Encounter for screening mammogram for malignant neoplasm of breast (principal); Z80.3 Family history of malignant neoplasm of breast; Z80.1 Family history of malignant neoplasm of trachea, bronchus and lung; Z80.8 Family history of malignant neoplasm of other organs or systems
CPT/HCPCS: 77067

== ENCOUNTER 2024-07-29 20:23 | Outpatient (REF) | payer MEDICARE, MEDICAID, SELFPAY ==
--- OUTSIDE RECORDS SUMMARY | 2024-07-29 20:29 | XMS_ITS | CCD ---
Author Organization [facility] CliniSytn Care Team Providers Care Automation Tender Name Role Phone David Gonsales Admitting Unavailable David Gonsales Attending Unavailable Sanaullgonzález, Harjit Primary Care Unavailable DAVID GONSALES Admitting Unavailable DAVID GONSALES Attending Unavailable SANAULLGONZÁLEZ, HARJIT Primary Care Unavailable Ceci BROWN, Doug Underwood Primary Care Provider [phone] Christopher Lema Unavailable Kendell Garcia Unavailable [...] vailable DR TODD GEORGE Primary Care Unavailable GAGNON ., DR JARAD Decker Admitting Unavailable REX, GLORY Primary Care Unavailable IGNACIO ., ABHINAV Consulting Unavailable GAGNON ., DR JARAD Decker Attending Unavailable AYANA, SKYLER Attending Unavailable AYANA, SKYLER Admitting Unavailable DR TODD GEORGE Primary Care Unavailable MATIAS, DR EL Page Consulting Unavailable AYANA, SKYLER Consulting Unavailable LAKSHMIPATHY ., NARENDRANATH Admitting Flora vailable LAKSHMIPATHY ., NARENDRANATH Attending Flora vailable DR TODD GEORGE Primary Care Unavailable WEST, DR EL Page Consulting Unavailable LAKSHMIPATHY ., NARENDRANATH Consulting Flora vailable LAKCARLEYMIPATHY ., NARENDRANATH Admitting Flora vailable PARTHMIPATHY ., NARENDRANATH Attending Flora vailable JERMAN, DR PELLETIER Primary Care Unavailable ZIEBER, DR BANDAR Romero Consulting Unavailable LAKSHMIPATHY ., NARENDRANATH Consulting Flora vailable REX, GLORY Admitting Unavailable REX, GLORY Attending Unavailable JERMAN, DR PELLETIER Consulting Unavailable JERMAN, DR PELLETIER Primary Care Unavailable BOONE, DR BANDAR Romero Consulting Unavailable REX, GLORY Consulting Unavailable JOSE MARTIN ., DR JARAD Decker Admitting Unavailable REX, GLORY Primary Care Unavailable IGNACIO .ABHINAV Consulting Unavailable GAGNON ., DR JARAD Decker Attending Unavailable Rosina Fink Attending Unavailab Rosina Figueredo Referring Unavailab Harjit Gonzalez Primary Care Unavailable Rosina Fink Admitting Unavailab Gunnar BROWN, Fausto Rosado Attending Unavailable Christina BROWN, Fausto Rosado Attending Unavailable Doug Ornelas MD Primary Care Provider [phone] Christopher Lema Unavailable Todd George MD Primary Care Provider BRAYDON RICH Attending Unavailable TODD GEORGE Referring Unavailable TODD GEORGE Primary Care Unavailable Todd George MD Primary Care Provider Unavailable Primary Care Provider UnavailTodd Hines MD Primary Care Provider ZIYAD ULRICH Attending Unavailable TODD GEORGE Referring Unavailable TODD GEORGE Primary Care Unavailable KRISTINE MURPHY Attending Unavailable ELIDIA TIERNEY Referring Unavailable TODD GEORGE Primary Care Unavailable Todd George MD Primary Care Provider KRYSTIN SALCEDO Attending Unavailable KRYSTIN SALCEDO Referring Unavailable TODD GEORGE Primary Care Unavailable ASHLYN BLACKBURN Admitting Unavailable ANDRA ZAMORA Consulting Unavailable AMY YAÑEZ Referring Unavailable GEORGE, TODD B Primary Care Unavailable GEORGE, TODD B Referring Unavailable GEORGE, TODD B Primary Care Unavailable KRYSTIN SALCEDO Referring Unavailable GEORGE, TODD B Primary Care Unavailable KRYSTIN SALCEDO Attending Unavailable GEORGE, TODD B Referring Unavailable GEORGE, TODD B Primary Care Unavailable RAJENDRA WISE Attending Unavailable GEORGE, TODD B Referring Unavailable GEORGE, TODD B Primary Care Unavailable KRYSTIN SALCEDO Attending Unavailable GEORGE, TODD B Referring Unavailable GEORGE, TODD B Primary Care Unavailable GEORGE, TODD B Referring Unavailable GEORGE, TODD B Primary Care Unavailable ASSI, ZAKARIA Admitting Unavailable ASSI, ZAKARIA Attending Unavailable GLENNA SALAZAR Attending Unavailable GEORGE, TODD B Referring Unavailable GEORGE, TODD B Primary Care Unavailable GEORGE, TODD B Referring Unavailable GEORGE, TODD B Primary Care Unavailable ELIDIA TIERNEY Referring Unavailable GEORGE, TODD B Primary Care Unavailable RAJENDRA WISE Admitting Unavailable RAJENDRA WISE Attending Unavailable GEORGE, TODD B Referring Unavailable GEORGE, TODD B Primary Care Unavailable GEORGE, TODD B Referring Unavailable GEORGE, TODD B Primary Care Unavailable GEORGE, TODD B Referring Unavailable GEORGE, TODD B Primary Care Unavailable BHARTI, TAMMIEALID Referring Unavailable GEORGE, TODD B Primary Care Unavailable ONLY), IP W[facility] (INPATIENT Consult ing Unavailable KIMBERLEY SONI Admitting Unavailable ISFIDEL BAUTISTA H Attending Unavailable RO FORD Consulting Unavailable [facility] Consulting Unavailable Todd George MD Primary Care Provider ELAINE HUGGINS Attending Unavailable ELAINE HUGGINS Attending Unavailable ELAINE HUGGINS Attending Unavailable ELAINE HUGGINS Attending Unavailable ELIDIA TIERNEY Attending Unavailable GEORGE, TODD B Referring Unavailable GEORGE, TODD B Primary Care Unavailable ELIDIA TIERNEY Attending Unavailable GEORGE, TODD B Referring Unavailable GEORGE, TODD B Primary Care Unavailable GEORGE, TODD B Referring Unavailable GEORGE, TODD B Primary Care Unavailable GEORGE, TODD B Referring Unavailable GEORGE, TODD B Primary Care Unavailable GEORGE, TODD B Primary Care Unavailable ALEKSEY CHADWICK Attending Unavailable ELIDIA TIERNEY Attending Unavailable GEORGE, TODD B Referring Unavailable GEORGE, TODD B Primary Care Unavailable ELIDIA TIERNEY Attending Unavailable GEORGE, TODD B Referring Unavailable GEORGE, TODD B Primary Care Unavailable KELSY, ELIDIA P Attending Unavailable GEORGE, TODD B Referring Unavailable TODD GEORGE B Primary Care Unavailable GISELLA GEORGEEL B Referring Unavailable GISELLA GEORGEEL B Primary Care Unavailable ELIDIA TIERNEY P Attending Unavailable TODD GEORGE B Referring Unavailable TODD GEORGE B Primary Care Unavailable ELIDIA TIERNEY P Attending Unavailable TODD GEORGE B Referring Unavailable TODD GEORGE B Primary Care Unavailable LISBETH BRANDON A Attending Unavailable TODD GEORGE B Referring Unavailable TODD GEORGE B Primary Care Unavailable STAR ANDRE Mello Attending Unavailable GABRIELLE CONTRERAS Referring Unavailable TODD GEORGE B Primary Care Unavailable TODD GEORGE B Referring Unavailable TODD GEORGE B Primary Care Unavailable ELIDIA TIERNEY P Attending Unavailable ELIDIA TIERNEY P Referring Unavailable TODD GEORGE B Primary Care Unavailable ELIDIA TIERNEY P Attending Unavailable ELIDIA TIERNEY P Referring Unavailable TODD GEORGE B Primary Care Unavailable Allergies Allergy Classification Reported Allergen(s) Allergy Type Date of Onset Reaction(s) Facility (1 source) No Known Medication Allergies; Translations: [No Known Medication Allergies] Propensity to adverse reactions to drug (disorder) [facility] Repository Medications Current Medications Medication Drug Class(es) Dates Sig (Normalized) Sig (Original) albuterol 0.833 mg/ml / ipratropium bromide 0.167 mg/ml inhalation solution (11 sources) Anticholinergic, beta2-Adrenergic Agonist Start: 05-17-2024 End: 05-18-2024 take 3 mL by inhalation every six hours as needed for wheezing 3 mL, nebulization, Every 6 hours PRN, wheezing, Starting on Sat05/18/24 at 1300, Implement INPATIENT/ED Bronchodilator Clinical Practice Guidelines? Yes alendronic acid 70 mg oral tablet (15 sources) Bisphosphonate Start: 03-12-2018 take 1 tablet by mouth every week at mealtime Alendronate Active 70 MG PO every week March 12, 2018 1:00am give one tab by mouth every week on saturday 30 minutes before first meal Comment on above: Take 70 mg by mouth once each week. ascorbic acid / D-biotin / folic acid / niacinamide / pantothenate / pyridoxine / riboflavin / thiamine / vitamin B12 (1 source) Vitamin B12, Vitamin C Start: 07-05-2024 EDWIN-LOLIS 0.8 mg tablet 07/05/2024 Active aspirin 81 mg chewable tablet (20 sources) Platelet Aggregation Inhibitor, Nonsteroidal Anti-inflammatory Drug Start: 03-12-2018 take 81 mg by mouth once daily Aspirin Active 81 MG PO Daily March 12, 2018 1:00am End: 02-14-2024 take 1 tablet by mouth in the morning aspirin 81 MG EC tablet Take 81 mg by mouth in the morning. Active Comment on above: Take 81 mg by mouth once daily. atorvastatin 80 mg oral tablet (20 sources) HMG-CoA Reductase Inhibitor Start: take 80 mg by mouth at bedtime 80 mg, oral, Bedtime, First dose on 05/17/24 at 2200, Look-alike/sound-ali ke medication - verify indication for use. Avonex 30 MCG/VIAL (2 sources) inject 1.5 mL by intramuscular injection every week Avonex 30 MCG/VIAL 1.5 ML Intramuscular Once a Week for 30 day(s) Active azelastine hydrochloride 0.137 mg/actuat metered dose nasal spray (20 sources) Histamine-1 Receptor Antagonist take 2 spray(s) nasal route once daily at bedtime azelastine (ASTELIN) 137 mcg (0.1 %) nasal spray Indications: seasonal allergic rhinitis Administer 2 sprays into each nostril once daily at bedtime Indications: seasonal runny nose. Use in each nostril as directed Active take 1 spray(s) nasa l route in the morning azelastine (Astelin) 0.1 % nasal spray Administer 1 spray into affected nostril(s) in the morning and 1 spray in the evening. Active End: 04-17-2024 take 1 spray(s) nasal route in the morning azelastine (ASTELIN) 137 mcg (0.1 %) nasal spray Administer 1 spray into each nostril in the morning and 1 spray before bedtime. Use in each nostril as directed. 04/17/2024 Discontinued (Therapy completed) B Wtlguyc-W-Aqdmu Acid (EDWIN-LOLIS RX PO) (12 sources) Start: 03-25-2023 take 1 tablet by mouth in the morning B Xsnrzpm-B-Gpcqv Acid (EDWIN-LOLIS RX PO) Take 1 tablet by mouth in the morning. 03/25/2023 Active B complex-vitamin C-folic acid (NEPHROCAP) 1 mg capsule (9 sources) take 1 capsule by mouth in the morning, then take 1 capsule by mouth in the morning B complex-vitamin C-folic acid (NEPHROCAP) 1 mg capsule Take 1 capsule by mouth in the morning. Give one tablet by mouth in the morning for ESRD. Active take 1 capsule by [facility] in the morning, then take 1 capsule by mouth in the morning B complex-vitamin C-folic acid (NEPHROCA P) 1 mg capsule Take 1 capsule by mouth in the morning. Give one tablet by mouth in the morning for ESRD. benzocaine 6 mg / menthol 10 mg oral lozenge (1 source) Standardized Chemical Allergen Start: 05-17-2024 1 lozenge, oral, Every 2 hour PRN, sore throat, Starting on 05/17/24 at 0001, Allow lozenge to dissolve slowly in mouth. Do not swallow. biotin 1 mg oral tablet (20 sources) take 1 tablet by mouth in the morning biotin 1 mg tablet Take 1 tablet (1 mg total) by mouth in the morning. Active take 1 mg by mouth in the mornin g biotin 1000 MCG tablet Take 1 mg by mouth in the morning. Active bisacodyl 5 mg delayed release oral tablet (20 sources) Stimulant Laxative Start: 06-24-2024 take 1 tablet by mouth once daily as needed for constipation bisacodyL (DULCOLAX) 5 mg EC tablet Take 1 tablet (5 mg total) by mouth daily as needed for constipation. 2 tablet 06/24/2024 Active Start: 12-06-2023 End: 04-17-2024 take 1 tablet by mouth once daily as needed for constipation bisacodyL (DULCOLAX) 5 mg EC tablet Take 1 tablet (5 mg total) by mouth daily as needed for constipation. 2 tablet 06/24/2024 Active calcitriol 0.86727 mg oral capsule (2 sources) Vitamin D3 Analog Calcitriol 0.2 5 MCG Oral for 28 Active Calcium + D 315-200 MG-UNIT (2 sources) Calcium + D 315- 200 MG-UNIT as directed Orally Active calcium carbonate 1250 mg oral tablet (20 sources) take 2 tablets by mouth in the morning calcium carbonate (OS-NAIMA) 500 mg elemental (1,250 mg) tablet Indications: hypocalcemia Take 2 tablets (1,000 mg total) by mouth in the morning. Indications: low amount of calcium in the blood. Active End: 05-17-2024 calcium carbonate (TUMS) 200 mg elemental (500 mg) chewable tablet Chew 2 tablets (400 mg total) and swallow 2 (two) times a day as needed for indigestion. 05/17/2024 Discontinued (Therapy completed) End: 05-17-2024 take 2 tablets by mouth in the morning calcium carbonate (TUMS ORAL) Take 2 tablets by mouth in the morning. Send to dialysis w/ patient. 05/17/2024 Discontinued (Alternate therapy) End: 04-17-2024 calcium carbonate (OS-NIAMA) 5 00 mg elemental (1,250 mg) chewable tablet Chew 2 tablets (1,000 mg total) and swallow. Take Sat., , Sat (she takes the medication with her on dialysis day) 04/17/2024 Discontinued (Duplicate Listing) take 2 tablets by mo uth in the morning calcium carbonate (TUMS ORAL) Take 2 tablets by mouth in the morning. Send to dialysis w/ patient. Active calcium carbonat e (TUMS) 200 mg elemental (500 mg) chewable tablet Chew 2 tablets (400 mg total) and swallow in the morning. Active calcium carbonat e (TUMS) 200 mg elemental (500 mg) chewable tablet Chew 1 tablet (200 mg total) and swallow in the morning. 0 Active Calcium Carbonate Antacid (CALCIUM CARBONATE PO) (12 sources) take 1 tablet by mouth twice daily as needed Calcium Carbonate Antacid (CALCIUM CARBONATE PO) Take 1 tablet by mouth 2 (two) times a day as needed for indigestion Active Calcium Citrate (15 sources) Start: 03-12-2018 take 3 tablets by mouth once daily Calcium Citrate Active 3 TAB PO Daily March 12, 2018 1:00am calcium citrate (Calcitrate) 950 (200 Ca) MG tablet Take 1,900 mg by mouth in the morning. Active Comment on above: Take 1,900 mg by attila th once daily. 100 ml calcium gluconate 20 mg/ml injection (2 sources) Start: 5 take 4-4.3 mg intravenously every hour as needed 2,000 mg, intravenous, at 50 mL/hr, Administer over 2 Hours, As needed, ionized calcium 4 to 4.3 mg/dL, Starting on 05/17/24 at 1339, IV Administration of calcium via a central or deep vein preferred. Avoid administration in small hand veins VESICANT (RED) calcium gluconate 3,000 mg in sodium chloride 0.9 % 100 mL IVPB (2 sources) Start: take 3.5-3.9 mg intravenously every hour as needed 3,000 mg, intravenous, at 43.3 mL/hr, Administer over 3 Hours, As needed, ionized calcium 3.5 to 3.9 mg/dL, Starting on 05/17/24 at 1339, IV Administration of calcium via a central or deep vein preferred. Avoid administration in small hand veins VESICANT (RED) Start: 05-17-2024 take 3.5-3.9 mg intr avenously every hour as needed 3,000 mg, intravenous, at 43.3 mL/hr, Administer over 3 Hours, As needed, ionized calcium 3.5 to 3.9 mg/dL, Starting on 05/17/24 at 1156, IV Administration of calcium via a central or deep vein preferred. Avoid administration in small hand veins VESICANT (RED) calcium gluconate 4,000 mg in sodium chloride 0.9 % 250 mL IVPB (2 sources) Start: 05-17-2024 take 3.4 mg intravenously every hour as needed 4,000 mg, intravenous, at 72.5 mL/hr, Administer over 4 Hours, As needed, ionized calcium 3.4 mg/dL or less, Starting on 05/17/24 at 1339, IV administration of calcium via a central or deep vein is preferred. Avoid administration in small hand veins. VESICANT (RED) Start: 05-17-2024 take 3.4 mg intraven ously every hour as needed 4,000 mg, intravenous, at 72.5 mL/hr, Administer over 4 Hours, As needed, ionized calcium 3.4 mg/dL or less, Starting on 05/17/24 at 1155, IV administration of calcium via a central or deep vein is preferred. Avoid administration in small hand veins. VESICANT (RED) capsaicin 1 mg/ml topical cr eam (12 sources) capsaicin (Capza sin-HP) 0.1 % cream every 8 (eight) hours Active carboxymethylcellulose 0.01 mg/mg ophthalmic gel (20 sources) take 1 drop(s) into the eye(s) in the morning carboxymethylcellulose (REFRESH TEARS) 1 % ophthalmic solution Indications: dry eye Administer 1 drop to both eyes in the morning. Indications: dry eye. Active End: 04-17-2024 take 1 drop(s) into the eye(s) in the morning carboxymethylcellulose 1 % ophthalmic solution Administer 1 drop into affected eye(s) in the morning and 1 drop in the evening. Active cholecalciferol 0.025 mg oral tablet (20 sources) Vitamin D Start: 09-19-2022 take 1 tablet by mouth in the [...] D (start on 05/24/2014) 0 05/23/2014 Active take 1 tablet by attila th in the morning cholecalciferol (Vitamin D-3) 50 MCG (2000 UT) tablet Take 4,000 Units by mouth in the morning. Active End: 02-10-2024 take 1 tablet by mouth in the morning cholecalciferol, vitamin D3, 2,000 units tablet Take 1 tablet (2,000 Units total) by mouth in the morning. 02/10/2024 Discontinued (Alternate therapy) Comment on above: Take 1 tablet by attila th three times daily. May resume after taking one week course of 50,000uVit D (start on 05/24/2014) clotrimazole 10 mg/ml topical cream (12 sources) Azole Antifungal clotrimazole (L otrimin AF) 1 % cream every 12 (twelve) hours Active 12 hr dalfampridine 10 mg extended release oral tablet (14 sources) Potassium Channel Jyoti take 1 tablet by mouth every twelve hours in the morning Dalfampridine ER 10 MG tablet sustained-release 12 hour Take 1 tablet by mouth in the morning and 1 tablet in the evening. Active take 1 tablet by mouth twice rachel ly Dalfampridine (AMPYRA) 10 mg Tb12 Take 1 tablet by mouth twice daily. Active Comment on above: Take 1 tablet by attila th twice daily. 0.5 ml darbepoetin xavier 0.2 mg/ml prefilled syringe (1 source) Erythropoiesis-st imulating Agent Start: 025 inject 12 g by subcutaneous injection every week 100 mcg, subcutaneous, Weekly, First dose on Sat05/17/24 at 0900, Do not administer if the patient's hemoglobin is greater than 12 g/dl., Indications: ESRD on Dialysis Darvocet-N 100 100-650 MG (2 sources) take 1 tablet by mouth every four hours as needed for pain Darvocet-N 100 100-650 MG 1 tablet as needed for pain Orally every 4 hrs Active docosahexaenoic acid 120 mg / eicosapentaenoic acid 180 mg oral capsule (12 sources) omega-3 (Fish Oi l) 1000 MG capsule Take 2 capsules by mouth Active docusate sodium 100 mg oral capsule (1 source) Start: 020 take 1 capsule by mouth once daily Docusate Sodium (Dok) 100 mg Capsule Active 100 MG PO Daily September 12, 2019 12:00am docusate sodium 50 mg / sennosides, long term 8.6 mg oral tablet (20 sources) Start: 023 take 1 tablet by mouth once as needed sennosides-docusate sodium (SENOKOT-S) 8.6-50 mg Take 1 tablet by mouth every 12 (twelve) hours as needed for constipation. 09/19/2022 Active doxycycline hyclate 100 mg oral capsule (1 source) Tetracycline-clas s Drug Start: 025 doxycycline (VIBRAMYCIN) 100 mg capsule 07/15/2024 Active ergocalciferol 1.25 mg oral capsule (1 source) Provitamin D2 Compound Start: 019 take 1 capsule by mouth every week Ergocalciferol (Vitamin D2) (Vitamin D2) 50,000 unit Capsule Active 1 TAB PO every week March 12, 2018 1:00am give one capsule by mouth every week on julia ferrous sulfate 324 mg delayed release oral tablet (15 sources) Start: 019 take 325 mg by mouth twice daily Ferrous Sulfate Active 325 MG PO Twice daily March 12, 2018 1:00am take 1 tablet by mouth at mealti dc ferrous sulfate 325 (65 Fe) MG tablet Take 325 mg by mouth in the morning. Take with meals. Active Comment on above: Take 325 mg by mouth daily with breakfast. fingolimod 0.5 mg oral capsule (14 sources) Sphingosine 1-phosphate Receptor Modulator take 1 capsule by mouth in the morning fingolimod (Gilenya) 0.5 MG capsule Take 1 capsule by mouth in the morning. Active Comment on above: Take 1 capsule by mo ut once daily. Fish Oil-[place]-3 Fatty Acids (FISH OIL) 340-1,000 mg cap (2 sources) Fish Oil-[place]-3 Fatty Acids (FISH OIL) 340-1,000 mg cap Take 2 capsules by mouth. Active Fish Oil-[place]-3 Fatty Acids (FISH OIL) 340-1,000 mg cap Take 2 capsules by mouth. 0 Active Comment on above: Take 2 capsules by m outh. FOLIC ACID/MV,FE,OTHER MIN/LUT (CERTAVITE WITH LUTEIN ORAL) (2 sources) FOLIC ACID/MV,FE ,OTHER MIN/LUT (CERTAVITE WITH LUTEIN ORAL) Take by mouth. Active FOLIC ACID/MV,FE ,OTHER MIN/LUT (CERTAVITE WITH LUTEIN ORAL) Take by mouth. 0 Active Comment on above: Take by mouth. gabapentin 600 mg oral tablet (15 sources) Anti-epileptic Agent Start: 03-12-2018 take 1200 mg by mouth twice daily Gabapentin Active 1200 MG PO Twice daily March 12, 2018 1:00am gabapentin (Neur ontin) 600 MG tablet every 8 (eight) hours Active take 1 tablet by mouth twice rachel ly gabapentin (NEURONTIN) 600 mg tablet Take 600 mg by mouth twice daily. Active Comment on above: Take 600 mg by mouth twice daily. glucagon (rdna) 1 mg injection (1 source) Antihypoglycemic Agent Start: 05-16-2024 1 mg, intramuscular, As needed, low blood sugar, blood glucose less than 70 mg/dL and unconscious or NPO without IV access., Starting on 05/16/24 at 2300, If conscious and not NPO, immediately follow with meal tray or high protein (7Grams) snack if tray not available. If NPO, initiate IV 5% Dextrose/Water at 100 mL/hr and contact prescriber for additional orders. If blood glucose is not greater than 70 mg/dL after initial treatment, repeat treatment. 150 ml glucose 50 mg/ml injection (3 sources) Start: 05-16-2024 15 g, oral, As needed, low blood sugar, blood glucose less than 70 mg/dL, Starting on 05/16/24 at 2300, If patient conscious and taking PO. If blood glucose is not greater than 70 mg/dL after initial treatment, repeat treatment. Start: 05-16-2024 25 mL, intrave nous, As needed, low blood sugar, blood glucose less than 70 mg/dL and unconscious or NPO with IV access, Starting on 05/16/24 at 2300, Push over 1-3 minutes STAT. If conscious and not NPO, immediately follow with meal tray or high protein (7 grams) snack if tray not available. If NPO, initiate 5% dextrose in water at 100 mL/hr and contact prescriber for additional orders. If blood glucose is not greater than 70 mg/dL after initial treatment, repeat treatment. VESICANT (RED) Warning: HYPERTONIC solution. Start: 05-16-2024 take 70 mg intraveno usly every hour 100 mL/hr, intravenous, Continuous PRN, blood glucose less than 70 mg/dL, Starting on 05/16/24 at 2300, Use immediately following dextrose 50% or glucagon treatment for patients who are unconscious or NPO. Contact prescriber for additional orders. If blood glucose is not greater than 70 mg/dL after initial treatment, repeat treatment. 12 hr guaiFENesin 600 mg extended release oral tablet (1 source) Start: 05-17-2024 take 600 mg by mouth every twelve hours 600 mg, oral, Every 12 hours scheduled, First dose on Sat05/17/24 at 0015, Look-alike/sound-alike medication - verify indication for use. Do not crush or chew. 1 ml heparin sodium, porcine 5000 unt/ml injection (1 source) Unfractionated Heparin, Anti-coagulant Start: 05-17-2024 5,000 Units, subcutaneous, Every 8 hours scheduled, First dose on Sat05/17/24 at 0600, Notify prescriber if INR greater than 1.9, hemoglobin less than 10 mg/dL, aPTT greater than 40 seconds, and/or platelet count less than 100,000/mm Look-alike/sound-alike medication - verify indication for use. Observe for bleeding. hydrOXYzine hydrochloride 25 mg oral tablet (2 sources) Antihistamine Start: 03-14-2018 take 25 mg by mouth every six hours Hydroxyzine Hcl Active 25 MG PO Every 6 hours March 14, 2018 1:00am Start: 03-12-2018 End: 03-14-2018 take 25 mg by mouth three to four times daily Hydroxyzine Hcl Discontinued 25 MG PO 3 to 4 times per day March 12, 2018 1:00am March 14, 2018 12:01pm Lactobacillus (12 sources) take 1 tablet by attila th once daily Lactobacillus (ACIDOPHILUS PO) Take 1 tablet by mouth Daily Active lactobacillus acidophilus [id number] unt / pectin 100 mg oral tablet (20 sources) take 1 tablet by attila th at mealtime Lactobacillus Acid-Pectin (Acidophilus/[place] Pectin) tablet Take 1 tablet by mouth in the morning. Take with meals. Active End: 04-17-2024 take 1 tablet by mouth once daily at breakfast acidophilus-pectin, citrus 25 million cell -100 mg tablet Take 1 tablet by mouth daily with breakfast. 04/17/2024 Discontinued (Therapy completed) lactulose 667 mg/ml oral solution (20 sources) Osmotic Laxative Start: 09-17-2019 take 10 g by mouth once daily Lactulose Active 10 GM PO Daily 100 September 17, 2019 12:00am take 45 mL by mouth once daily as needed for constipation lactulose (CHRONULAC) 10 gram/15 mL solution Take 45 mL (30 g total) by mouth daily as needed (constipation). Active take 30 mL by mouth once daily as needed for constipation lactulose (CHRONULAC) 10 gram/15 mL solution Take 30 mL (20 g total) by mouth daily as needed (constipation). Active take 1 dose by mouth three times daily lactulose (CEPHULAC) 10 gram packet Take 1 packet (10 g total) by mouth 3 (three) times a day. 0 Active Enulose 10 GM/15 ML Oral for 30 Active lisinopril 10 mg oral tablet (17 sources) Angiotensin Converting Enzyme Inhibitor Start: 03-12-2018 take 5 mg by mouth twice daily Lisinopril Active 5 MG PO Twice daily March 12, 2018 1:00am lisinopril 10 MG tablet 1 (one) time each day at the same time Active take 1 tablet by attila th every twenty-four hours Lisinopril 20 MG 1 tablet Orally Once a day for 30 day(s) Active Comment on above: Take 10 mg by mouth once daily. loperamide hydrochloride 2 mg oral tablet (1 source) Opioid Agonist Start: 03-12-2018 Loperamide Active 4 MG PO EVERY 1-3 HOURS March 12, 2018 1:00am Lutein (20 sources) take 1 tablet by mouth in the morning LUTEIN ORAL Take 1 tablet by mouth in the morning. take 1 tablet by mouth once jose y LUTEIN PO Take 1 tablet by mouth Daily Active take 1 tablet by mouth in the mo rning LUTEIN ORAL Take 1 tablet by mouth in the morning. Active take 1 tablet by mouth in the mo rning LUTEIN ORAL Take 1 tablet by mouth in the morning. 0 Active magnesium oxide 400 mg oral capsule (13 sources) Start: 03-12-2018 take 400 mg by mouth at bedtime Magnesium Oxide Active 400 MG PO Bedtime March 12, 2018 1:00am magnesium oxide (MagOx 400) 400 (241.3 Mg) MG tablet 1 (one) time each day at the same time Active 50 ml magnesium sulfate 40 mg/ml injection (2 sources) Start: 05-17-2024 2,000 mg, intr avenous, at 25 mL/hr, Administer over 120 Minutes, As needed, Magnesium level 1.7 to 1.9 mg/dL, or Ionized Magnesium level 0.45 to 0.5 mmol/L., Starting on 05/17/24 at 1338, Recheck magnesium level 4 hours after infusion complete. With each magnesium result continue the replacement orders as needed. Start: 05-17-2024 4,000 mg, intr avenous, at 25 mL/hr, Administer over 240 Minutes, As needed, Magnesium level 1.6 mg/dL or less, or Ionized Magnesium level 0.44 mmol/L or less, Starting on 05/17/24 at 1338, Recheck magnesium level 4 hours after infusion complete. With each magnesium result continue the replacement orders as needed. melatonin 3 mg oral tablet (20 sources) End: 02-10-2024 take 1 tablet by mouth at bedtime melatonin 3 MG tablet Take 3 mg by mouth at bedtime Active menthol 0.04 mg/mg topical gel (20 sources) End: 03-12-2024 menthol (BIOFREEZE, MENTHOL,) 4 % gel Indications: arthritic pain , sprains and strains Apply 1 Application topically every 8 (eight) hours as needed Indications: pain associated with arthritis, sprains and strains. Active metFORMIN hydrochloride 500 mg oral tablet (1 source) Biguanide Start: 03-12-2018 take 500 mg by mouth twice daily Metformin Active 500 MG PO Twice daily March 12, 2018 1:00am metoprolol tartrate 50 mg oral tablet (2 sources) beta-Adrenergic Jyoti take 1 tablet by mouth every twenty-four hours Metoprolol Tartrate 50 MG 1 tablet Orally ONCE A DAY for 30 day(s) Active midodrine hydrochloride 10 mg oral tablet (20 sources) alpha-Adrenergic Agonist Start: 05-17-2024 End: 03-12-2024 10 mg, oral, As needed, For SBP Start: 10-06-2022 take 1 tablet by attila th once daily as needed midodrine (PROAMATINE) 5 mg tablet Take 1 tablet (5 mg total) by mouth daily as needed (if SBP 10/06/2022 Active take 1 tablet by attila th three times daily midodrine (PROAMATINE) 10 mg tablet Take 1 tablet (10 mg total) by mouth 3 (three) times a day. Active take 1 tablet by attila th once daily midodrine (PROAMATINE) 10 mg tablet Take 1 tablet (10 mg total) by mouth daily. Active modafinil 100 mg oral tablet (20 sources) Sympathomimetic-like Agent Start: 06-12-2022 End: 2024 take 1 tablet by mouth once daily modafinil (Provigil) 100 MG tablet Indications: MS (multiple sclerosis) (CMS/HCC) Take 1 tablet (100 mg) by mouth Daily 30 tablet 5 04/28/2024 2024 Active Start: 03-12-2018 take 100 mg by mouth once jose y Modafinil Active 100 MG PO Daily March 12, 2018 1:00am Multiple Vitamins-Minerals (CertaVite/Antioxidants) tablet (12 sources) Multiple Vitamin s-Minerals (CertaVite/Antioxidants) tablet Orally Active multivitamin with minerals t ablet (11 sources) take 1 tablet by mouth in the morning multivitamin with minerals tablet Take 1 tablet by mouth in the morning. Give one tablet by mouth in the afternoon for preventive . Active take 1 tablet by mouth in the mo rning multivitamin with minerals tablet Take 1 tablet by mouth in the morning. Give one tablet by mouth in the afternoon for preventive . take 1 tablet by mouth once jose y multivitamin with minerals tablet Take 1 tablet by mouth once daily. Active take 1 tablet by mouth once jose y multivitamin with minerals tablet Take 1 tablet by mouth once daily. 0 Active Comment on above: Take 1 tablet by attila th once daily. Multivitamins (2 sources) Multivitamins as directed Orally Active naproxen 500 mg oral tablet (12 sources) Nonsteroidal Anti-inflammatory Drug take 1 tablet by mouth twice daily at mealtime naproxen (Naprosyn) 500 MG tablet take 1 tablet by oral route 2 times every day with food Oral Active nut.tx.imp.renal fxn,lac-reduc (NEPRO CARB STEADY) 0.08 gram-1.8 kcal/mL liquid (20 sources) nut.tx.imp.renal fxn,lac-reduc (NEPRO CARB STEADY) 0.08 gram-1.8 kcal/mL liquid Take 237 fluid ounces by mouth daily after dinner. nut.tx.imp.renal fxn,lac-reduc (NEPRO CARB STEADY) 0.08 gram-1.8 kcal/mL liquid Take 237 fluid ounces by mouth daily after dinner. Active nut.tx.imp.renal fxn,lac-reduc (NEPRO CARB STEADY) 0.08 gram-1.8 kcal/mL liquid Take 237 fluid ounces by mouth daily after dinner. 0 Active nystatin 100 unt/mg topical powder (20 sources) Polyene Antifungal End: 04-17-2024 nystatin (MYCOSTATIN) powder Apply 1 Application topically as needed (As needed). Apply to under breast and folds topically as needed for dermatitis Active [place] 0-Txo-Rkm-Fish Oil (Fish Oil) 1,000 mg (120 mg-180 mg) Capsule (1 source) Start: 03-12-2018 take 2 capsules by mouth once daily [place] 3-Udj-Byj-Fish Oil (Fish Oil) 1,000 mg (120 mg-180 mg) Capsule Active 2 CAP PO Daily March 12, 2018 1:00am omeprazole 20 mg delayed release oral capsule (2 sources) Proton Pump Inhibitor take 1 capsule by mouth twice daily omeprazole 20 mg capsule Take 20 mg by mouth twice daily. Active Comment on above: Take 20 mg by mouth twice daily. 2 ml ondansetron 2 mg/ml injection (2 sources) Serotonin-3 Receptor Antagonist Start: 05-18-2024 take 4 mg intravenously every four hours as needed for nausea and vomiting 4 mg, intravenous, Every 4 hours PRN, nausea, vomiting, Starting on 05/18/24 at 1811, Administer over 2-5 minutes. Start: 05-17-2024 End: 05-17-2024 4 mg, intravenous, Once, On Sat05/17/24 at 2015, For 1 dose, Administer over 2-5 minutes. OXcarbazepine 300 mg oral tablet (20 sources) Anti-epileptic Agent Start: 03-12-2018 take 150 mg by mouth twice daily Oxcarbazepine Active 150 MG PO Twice daily March 12, 2018 1:00am End: 04-17-2024 take 1 tablet by mouth in the morning, then take 1 tablet by mouth at bedtime OXcarbazepine (TRILEPTAL) 300 mg tablet Take 1 tablet (300 mg total) by mouth in the morning and 1 tablet (300 mg total) before bedtime. For MS/neuropathy. Active take 1 tablet by attila th twice daily OXcarbazepine 150 mg tablet Take 150 mg by mouth twice daily. Active Comment on above: Take 150 mg by mouth twice daily. oxyCODONE hydrochloride 5 mg oral tablet (20 sources) Opioid Agonist Start: 07-02-2024 End: 08-01-2024 take 1 tablet by mouth every six hours as needed for pain and pain and pain oxyCODONE (Roxicodone) 5 MG immediate release tablet Indications: Pain Take 1 tablet (5 mg) by mouth every 6 (six) hours if needed for severe pain 120 tablet 07/02/2024 08/01/2024 Active Start: 05-20-2024 End: 05-20-2024 5 mg, oral, Once, On 05/09 at 0015, For 1 dose, Look-alike/sound-alike medication - verify indication for use. Immediate release. Start: 05-19-2024 End: 05-19-2024 5 mg, oral, Once, On 05/09 at 1515, For 1 dose, Look-alike/sound-alike medication - verify indication for use. Immediate release. Start: 05-18-2024 End: 05-18-2024 5 mg, oral, Once, On 05/09 at 2345, For 1 dose, Look-alike/sound-alike medication - verify indication for use. Immediate release. Start: 04-10-2023 End: 05-10-2023 take 2.5 mg by mouth every eight hours as needed oxyCODONE (OXY-IR) 5 mg capsule Take 2.5 mg by mouth every 8 (eight) hours as needed. Max Daily Amount: 7.5 mg 0 04/10/2023 05/10/2023 Active Start: 10-03-2022 End: 04-17-2024 take 2.5 mg by mouth every six hours as needed for pain oxyCODONE (ROXICODONE) 5 mg immediate release tablet Take 0.5 tablets (2.5 mg total) by mouth every 6 (six) hours as needed for pain. 10/03/2022 04/17/2024 Discontinued (Therapy completed) Start: 10-03-2022 take 2.5 mg by mouth every eight hours as needed for pain oxyCODONE (ROXICODONE) 5 mg immediate release tablet Take 0.5 tablets (2.5 mg total) by mouth every 8 (eight) hours as needed for pain. 10/03/2022 Active Start: 03-24-2022 End: 04-08-2024 take 1 tablet by mouth every six hours as needed for pain and pain oxyCODONE (Roxicodone) 5 MG immediate release tablet Take 5 mg by mouth every 6 (six) hours if needed for moderate pain or severe pain 03/24/2022 Active Start: 03-24-2022 oxyCODONE (Agnes icodone) 5 MG immediate release tablet every 12 (twelve) hours 03/24/2022 Active Start: 03-12-2018 take 1 tablet by attila once daily Oxycodone Active 5 MG PO Daily at 0600 March 12, 2018 1:00am give one tab by mouth daily at 0600 Start: 03-12-2018 take 1 tablet by attila [...] 3 hours as needed. 0 05/23/2014 Active take 5 mg by mouth e very six hours as needed oxycodone HCl (OXYCODONE ORAL) Take 5 mg by mouth every 6 (six) hours as needed (every 6 hours). Give one tablet as by mouth every 6 hours as needed for moderate to severe pain Active take 5 mg by mouth e very six hours as needed oxycodone HCl (OXYCODONE ORAL) Take 5 mg by mouth every 6 (six) hours as needed (every 6 hours). Give one tablet as by mouth every 6 hours as needed for moderate to severe pain Max Daily Amount: 20 mg Active take 5 mg by mouth e very six hours as needed oxycodone HCl (OXYCODONE ORAL) Take 5 mg by mouth every 6 (six) hours as needed (every 6 hours). Give one tablet as by mouth every 6 hours as needed for moderate to severe pain Max Daily Amount: 20 mg Comment on above: Take 1-2 tablets by mouth every 3 hours as needed. pantoprazole 40 mg delayed release oral tablet (12 sources) Proton Pump Inhibitor Start: 0 End: 5 take 1 tablet by mouth in the morning, then take 1 tablet by mouth before mealtime pantoprazole (PROTONIX) 40 mg EC tablet Take 1 tablet (40 mg total) by mouth in the morning and 1 tablet (40 mg total) in the evening. Take before meals. 60 tablet 3 05/19/2024 Active polyethylene glycol 3350 22945 mg powder for oral solution (20 sources) Osmotic Laxative Start: 5 take 1 dose by mouth once daily as needed polyethylene glycol 3350 (MIRALAX) 17 gram packet Take 1 Packet by mouth once daily as needed. 05/26/2014 Active End: 04-17-2024 polyethylene glycol (GLYCOLA X) 17 gram packet Indications: constipation Take 17 g by mouth in the morning. Indications: constipation. In the afternoon . Active MiraLax as direc rosa Orally Active Comment on above: Take 1 Packet by attila once daily as needed. polyethylene glycol 3350 963002 mg / potassium chloride 2970 mg / sodium bicarbonate 6740 mg / sodium chloride 5860 mg / sodium sulfate 29185 mg powder for oral solution (20 sources) Osmotic Laxative Start: 06-24-2024 polyethylene glycol (GoLYTELY) 236-22.74-6.74 -5.86 gram solution Starting at noon on day prior to procedure, drink 8 ounces every 30 minutes until all gone or stools are clear. May add flavor packet. 4000 mL 06/24/2024 Active Start: 01-30-2024 End: 05-20-2024 polyethylene glycol (GoLYTEL Y) 236-22.74-6.74 -5.86 gram solution Indications: Positive occult stool blood test Starting at noon on day prior to procedure, drink 8 ounces every 30 minutes until all gone or stools are clear. May add flavor packet. 4000 mL 03/13/2024 05/20/2024 Discontinued (Stop Taking at Discharge) Potassium Chloride (2 sources) Start: 05-17-2024 potassium chlo ride (K-TAB,KLOR-CON) CR tablet 20-40 mEq Start: 05-17-2024 potassium chlo ride (K-TAB,KLOR-CON) CR tablet 20-40 mEq pregabalin 75 mg oral capsule (20 sources) Start: 10-30-2023 End: 04-17-2024 take 1 capsule by mouth at bedtime pregabalin (Lyrica) 75 MG capsule Indications: Pain Take 1 capsule (75 mg) by mouth at bedtime 30 capsule 10/30/2023 Active Pregabalin 150 M G Oral for 15 Active EDWIN-LOLIS RX 1-60-300 mg-mg- mcg tablet (20 sources) Start: 04-04-2024 EDWIN-LOLIS RX 1 -60-300 mg-mg-mcg tablet 04/04/2024 Start: 04-04-2024 EDWIN-LOLIS RX 1 -60-300 mg-mg-mcg tablet 04/04/2024 Active Start: 03-25-2023 End: 03-12-2024 take 1 tablet by mouth in the morning EDWIN-LOLIS RX 1-60-300 mg-mg-mcg tablet Take 1 tablet by mouth in the morning. 03/25/2023 03/12/2024 Discontinued (Therapy completed) Start: 03-25-2023 take 1 tablet by attila th in the morning EDWIN-LOLIS RX 1-60-300 mg-mg-mcg tablet Take 1 tablet by mouth in the morning. 03/25/2023 Active Start: 03-25-2023 EDWIN-LOLIS RX 1 -60-300 mg-mg-mcg tablet sertraline 25 mg oral tablet (20 sources) Serotonin Reuptake Inhibitor take 2 tablets by mouth in the morning sertraline (ZOLOFT) 25 mg tablet Take 2 tablets (50 mg total) by mouth in the morning. Active take 1 tablet by mouth in the mo rning sertraline (ZOLOFT) 25 mg tablet Take 1 tablet (25 mg total) by mouth in the morning. Active take 1 tablet by mouth in the mo rning sertraline (ZOLOFT) 50 mg tablet Take 1 tablet (50 mg total) by mouth in the morning. 0 Active sevelamer carbonate 800 mg oral tablet (20 sources) Phosphate Binder Start: 02-22-2023 End: 05-20-2024 sevelamer (RENVELA) 800 mg tablet Take 1 tablet (800 mg total) by mouth in the morning and 1 tablet (800 mg total) at noon and 1 tablet (800 mg total) in the evening. Take with meals. 90 tablet 3 05/19/2024 Active Start: 02-22-2023 sevelamer carb leonard (Renvela) 800 MG tablet Take 3 tablets by mouth in the morning and 3 tablets at noon and 3 tablets in the evening. Take with meals. 02/22/2023 Active simethicone 80 mg chewable tablet (11 sources) take 1 tablet by attila th every six hours as needed simethicone (MYLICON) 80 mg chewable tablet Chew 1 tablet (80 mg total) and swallow every 6 (six) hours as needed (indigestion). Active 1000 ml sodium chloride 9 mg/ml injection (6 sources) Start: 05-22-2024 take 20 mL intravenously every hour as needed 20 mL/hr, intravenous, Continuous PRN, per policy for blood product transfusion, Starting on Sat05/22/24 at 0845, OP Transfusion Products and Meds, Initiate prior to blood product transfusion. Continue before and after each blood product transfusion. Discontinue upon completion of blood product transfusions(s) Start: 05-18-2024 End: 05-18-2024 250 mL, hemodialysis, at 100 mL/hr, Continuous, Starting on 05/18/24 at 0715, Hemodialysis, as priming solution for hemodialysis tubing. Start: 05-18-2024 150 mL, intrav enous, at 600 mL/hr, Administer over 15 Minutes, Every 5 min PRN, hypotension during hemodialysis, Starting on 05/18/24 at 0700, For 3 doses, Hemodialysis, For systolic blood pressure Start: 05-16-2024 3 mL, intraven ous, Every 12 hours scheduled, First dose on 05/16/24 at 2315 Start: 05-16-2024 3 mL, intraven ous, As needed, line care, before and after each intermittent use, Starting on 05/16/24 at 2300 Start: 05-16-2024 take 25 mL intraveno usly every hour as needed 25 mL, intravenous, at 100 mL/hr, Administer over 15 Minutes, As needed, line care, line care after IVPB administration, Starting on 05/16/24 at 2300 sodium phosphate 20 mmol in sodium chloride 0.9 % 250 mL IVPB (1 source) Start: 05-17-2024 sodium phospha te 20 mmol in sodium chloride 0.9 % 250 mL IVPB [place] [address] mg powder for oral suspension (20 sources) Start: 05-22-2024 sodium zirconi um cyclosilicate (LOKELMA) 10 gram packet Indications: ESRD (end stage renal disease) ([facility]) Take 10 g by mouth 3 (three) times a week. 30 packet 3 05/22/2024 Active Start: 05-22-2024 sodium zirconi um cyclosilicate (LOKELMA) 10 gram packet Indications: ESRD (end stage renal disease) ([facility]) Take 10 g by mouth 3 (three) times a week. 30 packet 3 05/22/2024 Active Start: 05-22-2024 sodium zirconi um cyclosilicate (LOKELMA) 10 gram packet Indications: ESRD (end stage renal disease) ([facility]) Take 10 g by mouth 3 (three) times a week. 30 packet 3 05/22/2024 Start: 05-21-2024 10 g, oral, 3 times weekly (Once per day on Saturday), First dose (after last modification) on Sat05/21/24 at 0900, Hold for potassium less than 4.4 Empty entire contents of the packet(s) into a glass with 3 tablespoons (45 mL) or more water. Stir well and drink immediately; if powder remains in the glass, add water, stir and drink immediately; repeat until no powder remains. Administer other oral medications 2 or more hours before or 2 hours after dose. Start: 05-17-2024 End: 05-18-2024 10 g, oral, Once, On 05/09 at 1345, For 1 dose, Empty entire contents of the packet(s) into a glass with 3 tablespoons (45 mL) or more water. Stir well and drink immediately; if powder remains in the glass, add water, stir and drink immediately; repeat until no powder remains. Administer other oral medications 2 or more hours before or 2 hours after dose. take 10 g by mouth i n the morning Lokelma 10 g packet Take 10 g by mouth in the morning. Active End: 05-20-2024 sodium zirconium cyclosilica te (LOKELMA) 10 gram packet Take 10 g by mouth 2 (two) times a week. Saturday and Saturday05/20/2024 Discontinued (Stop Taking at Discharge) tiZANidine 4 mg oral tablet (3 sources) Central alpha-2 Adrenergic Agonist Start: 03-12-2018 take 4 mg by mouth once daily Tizanidine Active 4 MG PO Daily March 12, 2018 1:00am Comment on above: Take 4 mg by mouth w ith meals and at bedtime. traMADol hydrochloride 50 mg oral tablet (17 sources) Opioid Agonist Start: 06-12-2022 traMADol (Ultr am) 50 MG tablet 1 (one) time each day at the same time 06/12/2022 Active Start: 03-12-2018 take 50 mg by mouth three times daily Tramadol Active 50 MG PO Three times daily March 12, 2018 1:00am take 1 tablet by attila th every eight hours as needed traMADol (ULTRAM) 50 mg tablet Take 50 mg by mouth every 8 hours as needed. Active Comment on above: Take 50 mg by mouth every 8 hours as needed. traZODone (20 sources) Serotonin Reuptake Inhibitor Start: 10-03-2022 take 12.5 mg by mouth once daily trazodone HCl (TRAZODONE ORAL) Take 12.5 mg by mouth nightly. 10/03/2022 Start: 10-03-2022 take 12.5 mg by mout h once daily trazodone HCl (TRAZODONE ORAL) Take 12.5 mg by mouth nightly. 10/03/2022 Active Start: 10-03-2022 take 25 mg by mouth once daily trazodone HCl (TRAZODONE ORAL) Take 25 mg by mouth nightly. 10/03/2022 Active Start: 10-03-2022 traZODone (KAM YREL) 50 mg tablet traZODone HCl 50 MG Oral for 30 Active traZODone (Desyrel) 25 MG split tablet (12 sources) take 1 tablet by mouth at bedtime traZODone (Desyrel) 25 MG split tablet Take 25 mg by mouth at bedtime Active Vit C-Vit L-Iwjpma-Cgn-Om-3 (Ocuvite) 653-29-6-150 bv-sfbc-po-mg Capsule (1 source) Start: 03-12-2018 take 1 capsule by mouth once daily Vit C-Vit J-Ddbtej-Mya-Om-3 (Ocuvite) 314-72-4-150 pd-vsgj-ph-mg Capsule Active 1 CAP PO Daily March 12, 2018 1:00am Vitamin B Complex (1 source) Start: 03-12-2018 take 1 tablet by mouth once daily Vitamin B Complex Active 1 TAB PO Daily March 12, 2018 1:00am zolpidem tartrate 10 mg oral tablet (12 sources) gamma-Aminobutyric Acid-ergic Agonist zolpidem (Ambien) 10 MG tablet 1 (one) time each day at the same time Active Completed/Discontinued Medications Medication Drug Class(es) Dates Sig (Normalized) Sig (Original) A/C/E/zinc ox/cupric ox/lutein (OCULAR VITAMINS ORAL) (20 sources) End: 04-17-2024 take 1 tablet by mouth in the morning A/C/E/zinc ox/cupric ox/lutein (OCULAR VITAMINS ORAL) Take 1 tablet by mouth in the morning. 04/17/2024 Discontinued (Therapy completed) take 1 tablet by mouth in the mo rning A/C/E/zinc ox/cupric ox/lutein (OCULAR VITAMINS ORAL) Take 1 tablet by mouth in the morning. Active A/C/E/zinc ox/cu pric ox/lutein (OCULAR VITAMINS ORAL) Take by mouth. 0 Active acetaminophen 500 mg oral tablet (20 sources) Start: 05-19-2024 End: 05-19-2024 take 1000 mg by mouth once 1,000 mg, oral, Once, On Sat05/19/24 at 1115, For 1 dose Start: 09-17-2019 take 650 mg by mouth every six hours Acetaminophen Active 650 MG PO Q6H 24 12September 17, 2019 12:00am take 2 tablets by mo ut every eight hours acetaminophen (TYLENOL) 325 mg tablet Indications: pain Take 2 tablets (650 mg total) by mouth every 8 (eight) hours Indications: pain. Active End: 04-17-2024 take 2 tablets by mouth every six hours as needed for pain acetaminophen (TYLENOL) 325 mg tablet Take 2 tablets (650 mg total) by mouth every 6 (six) hours as needed for pain. 04/17/2024 Discontinued (Therapy completed) ascorbic acid 500 mg extended release oral capsule (15 sources) Vitamin C Start: 03-12-2018 End: 09-12-2019 take 1 capsule by mouth once daily Ascorbic Acid (Vitamin C) (Vitamin C) 500 mg Capsule, Extended Release Discontinued 500 MG PO Daily March 12, 2018 1:00am September 12, 2019 2:20am take 1 tablet by mouth in the mo rning ascorbic acid (Vitamin C) 500 MG tablet Take 500 mg by mouth in the morning. Active take 1 tablet by mouth once jose y ascorbic acid (VITAMIN C) 500 mg tablet Take 500 mg by mouth once daily. Active Comment on above: Take 500 mg by mouth once daily. B complex-vitamin C-folic acid (RENAL-LOLIS) 0.8 mg tablet (20 sources) End: 04-17-2024 take 1 tablet by mouth in the morning B complex-vitamin C-folic acid (RENAL-LOLIS) 0.8 mg tablet Take 1 tablet by mouth in the morning. 04/17/2024 Discontinued (Therapy completed) take 1 tablet by mouth in the mo rning B complex-vitamin C-folic acid (RENAL- LOLIS) 0.8 mg tablet Take 1 tablet by mouth in the morning. Active take 1 tablet by mouth in the [facility] B complex-vitamin C-folic acid (RENAL- LOLIS) 0.8 mg tablet Take 1 tablet by mouth in the morning. 0 Active carvedilol 3.125 mg oral tablet (20 sources) alpha-Adrenergic Jyoti, beta-Adrenergic Jyoti Start: 05-17-2024 End: 05-17-2024 take 3.125 mg by mouth once daily 3.125 mg, oral, Daily, First dose on 05/17/24 at 0700, Give with meal or snack. Look-alike/sound-alike medication - verify indication for use. take 0.5 tablet by mouth in the morning carvediloL (COREG) 6.25 mg tablet Take 0.5 tablets (3.125 mg total) by mouth in the morning. Active take 3.125 mg by mouth in the [facility] carvedilol (Coreg) 6.25 MG tablet Take 3.125 mg by mouth in the morning and 3.125 mg in the evening. Take with meals. Active cephalexin 500 mg oral capsule (1 source) Cephalosporin Antibacterial Start: 09-17-2019 End: 07-22-2020 take 1 capsule by mouth twice daily Cephalexin (Keflex) 500 mg capsule Discontinued 500 MG PO Twice daily 26 11September 17, 2019 12:00am July 22, 2020 12:11pm famotidine 20 mg oral tablet (20 sources) Histamine-2 Receptor Antagonist Start: 03-12-2018 End: 05-17-2024 take 1 tablet by mouth once daily at bedtime Famotidine (Pepcid) 20 mg Tablet Discontinued 20 MG PO Daily at bedtime March 12, 2018 1:00am September 12, 2019 2:20am take 1 tablet by attila twice daily as needed for gastroesophageal reflux disease famotidine (Pepcid) 20 MG tablet Take 20 mg by mouth 2 (two) times a day as needed (GERD) Active 2 ml furosemide 10 mg/ml injection (6 sources) Loop Diuretic Start: 05-22-2024 End: 05-22-2024 20 mg, intravenous, Once, On Sat05/22/24 at 0900, For 1 dose, OP Transfusion Products and Meds, after first unit Look-alike/sound-alike medication - verify indication for use. IVP rate = 20 mg/min Start: 09-12-2019 take 20 mg by mouth once Furos emide Active 20 MG PO every Saturday, Saturday, [...] 5 ml iron sucrose 20 mg/ml injection (15 sources) Parenteral Iron Replacement Start: 08-22-2022 End: 02-14-2024 VENOFER 100 mg iron/5 mL injection Infuse 5 mL (100 mg total) into a venous catheter. 08/22/2022 02/14/2024 Discontinued (Therapy completed) lidocaine 25 mg/ml / prilocaine 25 mg/ml topical cream (3 sources) Antiarrhythmic, Amide Local Anesthetic Start: 07-17-2024 End: 07-17-2024 1 Application, topical, Once, On Sat07/17/24 at 1400, For 1 dose, If no allergy, apply topically to wounds with each wound care appointment with practitioner for pain control. Start: 05-13-2024 End: 05-13-2024 1 Application, topical, Once , On Sat05/13/24 at 0915, For 1 dose, If no allergy, apply topically to wounds with each wound care appointment with practitioner for pain control. Start: 03-20-2024 End: 03-20-2024 1 Application, topical, Once , On Sat03/20/24 at 1415, For 1 dose, If no allergy, apply topically to wounds with each wound care appointment with practitioner for pain control. magnesium sulfate 0.0277 meq/ml / potassium sulfate 0.0374 meq/ml / sodium sulfate 0.257 meq/ml oral solution (3 sources) Start: 12-06-2023 End: 01-30-2024 take 177 mL by mouth in the morning sodium,potassium,mag sulfates (SUPREP) 17.5-3.13-1.6 gram recon soln Indications: Positive occult stool blood test , Colon cancer screening Take 177 mL by mouth in the morning and 177 mL before bedtime. Please follow office instructions.. 354 mL 12/06/2023 01/30/2024 Discontinued Wfbbcrhrhgtp-Epcc-B olic Acid (Certavite-Antioxid ant) 18-400 mg-mcg Tablet (1 source) Start: 03-12-2018 End: 09-12-2019 take 1 tablet by mouth once daily Naunmzvnpqzz-Yulx-Eycxx Acid (Certavite-Antioxidant) 18-400 mg-mcg Tablet Discontinued 1 TAB PO Daily March 12, 2018 1:00am September 12, 2019 2:20am omega-3 fatty acids 500 mg capsule (15 sources) End: 02-14-2024 take 1 capsule by mouth once daily at bedtime omega-3 fatty acids 500 mg capsule Take 1,500 mg by mouth once daily at bedtime. 02/14/2024 Discontinued (Therapy completed) take 1 capsule by mo uth once daily at bedtime omega-3 fatty acids 500 mg capsule Take 1,500 mg by mouth once daily at bedtime. Active take 1 capsule by mo uth once daily at bedtime omega-3 fatty acids 500 mg capsule Take 1,500 mg by mouth once daily at bedtime. 0 Active Problems Active Problems Problem Classification Problem Date Documented Da te Episodic/Chronic Abdominal pain (3 sources) Epigastric pain; Translations: [Epigastric pain] Onset: 05-16-2024 05-20-2024 Episodic Acute cerebrovascular disease (1 source) Cerebrovascular accident; Translations: [Cerebral infarction, unspecified] 09-12-2019 Chronic Anxiety disorders (20 sources) Mixed anxiety and depressive disorder; Translations: [Anxiety disorder, unspecified] Onset: 09-25-2023 09-25-2023 Chronic Aortic; peripheral; and visceral artery aneurysms (1 source) Aneurysm of unspecified site; Translations: [Aneurysm of unspecified site] Onset: 05-30-2023 Chronic Cardiac dysrhythmias (1 source) Tachycardia, unspecified; Translations: [Tachycardia, unspecified] Onset: 05-16-2024 Episodic Chronic kidney disease (20 sources) Chronic kidney disease; Translations: [Chronic kidney disease, unspecified] Onset: 08-30-2022 09-12-2019 Chronic Chronic ulcer of skin (20 sources) Pressure ulcer of other site, stage 3; Translations: [Pressure ulcer, other site] Onset: 09-14-2022 02-28-2024 Chronic Complication of device; implant or graft (20 sources) Arteriovenous fistula stenosis; Translations: [Stenosis of other vascular prosthetic devices, implants and grafts, initial encounter] Onset: 04-01-2023 05-02-2023 Chronic Deficiency and other anemia (20 sources) Anemia of chronic disease; Translations: [Anemia in other chronic diseases classified elsewhere] Onset: 08-30-2022 09-13-2022 Chronic Deficiency and other anemia (1 source) Anemia in other chronic diseases classified elsewhere; Translations: [Anemia in other chronic diseases classified elsewhere] Onset: 09-13-2022 Chronic Deficiency and other anemia (5 sources) Hemoglobin low; Translations: [Anemia, unspecified] 08-30-2023 Episodic Deficiency and other anemia (1 source) Anemia, unspecified; Translations: [Anemia, unspecified] Onset: 06-03-2024 Episodic Diabetes mellitus without complication (1 source) Diabetes mellitus; Translations: [Type 2 diabetes mellitus without complications] 09-12-2019 Chronic Diseases of white blood cells (20 sources) Leukocytosis; Translations: [Elevated white blood cell count, unspecified] Onset: 09-13-2022 09-13-2022 Chronic Essential hypertension (6 sources) Essential hypertension; Translations: [HTN [Hypertension]] Onset: 03-12-2024 09-12-2019 Chronic Fever of unknown origin (1 source) Fever; Translations: [Fever, unspecified] 09-14-2019 Episodic Fluid and electrolyte disorders (12 sources) Hyperkalemia; Translations: [Hyperkalemia] Onset: 05-19-2024 05-20-2024 Episodic Genitourinary symptoms and ill-defined conditions (1 source) Urine culture: organisms - finding; Translations: [Other abnormal findings on microbiological examination of urine] 09-14-2019 Episodic Malaise and fatigue (20 sources) Fatigue; Translations: [Chronic fatigue, unspecified] Onset: 09-25-2023 09-25-2023 Chronic Malaise and fatigue (20 sources) Asthenia; Translations: [Weakness] Onset: 09-25-2023 09-25-2023 Episodic Multiple sclerosis (20 sources) Multiple sclerosis; Translations: [Multiple sclerosis] Onset: 01-24-2021 Resolved: 01-24-2021 Chronic Open wounds of extremities (1 source) Open wound foot, plantar; Translations: [Laceration without foreign body, left foot, initial encounter] 07-17-2024 Episodic Osteoarthritis (4 sources) Arthropathy of left shoulder; Translations: [Primary osteoarthritis, left shoulder] Onset: 01-24-2021 Resolved: 01-24-2021 Chronic Osteoporosis (20 sources) Age-related osteoporosis without current pathological fracture; Translations: [Osteoporosis] Onset: 05-10-2022 Chronic Other aftercare (3 sources) Patient encounter status; Translations: [Encounter for therapeutic drug level monitoring] 11-26-2023 Episodic Other circulatory disease (1 source) Arteriovenous fistula, acquired; Translations: [Arteriovenous fistula, acquired] Onset: 04-01-2023 Chronic Other circulatory disease (2 sources) Arteriovenous fistula; Translations: [Arteriovenous fistula, acquired] Onset: 04-01-2023 04-01-2023 Chronic Other circulatory disease (3 sources) Acquired arteriovenous fistula; Translations: [Arteriovenous fistula, acquired] Onset: 06-12-2024 06-12-2024 Chronic Other circulatory disease (2 sources) Abnormal foot pulse; Translations: [Other specified symptoms and signs involving the circulatory and respiratory systems] 02-17-2024 Episodic Other congenital anomalies (20 sources) Congenital pes planus; Translations: [Congenital pes planus, unspecified foot] Onset: 10-09-2022 02-14-2024 Chronic Other connective tissue disease (3 sources) [...] TEAR/RUPT LT SHOULDER] Onset: 06-15-2022 Episodic Other connective tissue disease (2 sources) Other symptoms and signs involving the musculoskeletal system; Translations: [Other musculoskeletal symptoms referable to limbs] 11-26-2023 Episodic Other diseases of bladder and urethra (20 sources) Neurogenic bladder; Translations: [Neuromuscular dysfunction of bladder, unspecified] Onset: 09-25-2023 09-25-2023 Chronic Other diseases of veins and lymphatics (20 sources) Lymphedema; Translations: [Lymphedema, not elsewhere classified] Onset: 09-14-2022 09-25-2023 Chronic Other diseases of veins and lymphatics (1 source) Lymphedema, not elsewhere classified; Translations: [Lymphedema, not elsewhere classified] Onset: 09-14-2022 Chronic Other gastrointestinal disorders (6 sources) Occult blood in stools; Translations: [Other fecal abnormalities] 03-13-2024 Episodic Other injuries and conditions due to external causes (9 sources) Local infection of wound; Translations: [Other injury of unspecified body region, initial encounter] Onset: 05-16-2024 05-16-2024 Episodic Other injuries and conditions due to external causes (2 sources) Other injury of unspecified body region, initial encounter; Translations: [Other injury of unspecified body region, initial encounter] Onset: 05-15-2024 Episodic Other nervous system disorders (1 source) Other chronic pain; Translations: [OTHER CHRONIC PAIN] Onset: 06-15-2022 Chronic Other nervous system disorders (20 sources) Peripheral nerve disease ; Translations: [Polyneuropathy, unspecified] Onset: 09-25-2023 09-25-2023 Chronic Other nervous system disorders (20 sources) Polyneuropathy; Translations: [Polyneuropathy, unspecified] Onset: 09-25-2023 09-25-2023 Chronic Other nervous system disorders (20 sources) Carpal tunnel syndrome; Translations: [Carpal tunnel syndrome, unspecified upper limb] Onset: 10-09-2022 09-25-2023 Chronic Other nervous system disorders (20 sources) Lesion of ulnar nerve; Translations: [Lesion of ulnar nerve, unspecified upper limb] Onset: 09-25-2023 09-25-2023 Chronic Other nervous system disorders (12 sources) Neuropathy; Translations: [Polyneuropathy, unspecified] Onset: 09-25-2023 09-25-2023 Chronic Other nervous system disorders (12 sources) Demyelinating disease of central nervous system; Translations: [Demyelinating disease of central nervous system, unspecified] Onset: 09-25-2023 09-25-2023 Chronic Other non-traumatic joint disorders (20 sources) Charcot's arthropathy; Translations: [Charcot's joint, unspecified site] Onset: 03-27-2013 03-27-2013 Chronic Other non-traumatic joint disorders (4 sources) Pain in left shoulder; Translations: [PAIN IN LEFT SHOULDER] Onset: 07-04-2022 Episodic Other non-traumatic joint disorders (1 source) Pain in right knee; Translations: [Right knee pain] 09-16-2019 Episodic Other nutritional; endocrine; and metabolic disorders (20 sources) Morbid obesity; Translations: [Morbid (severe) obesity due to excess calories] Onset: 09-13-2022 09-12-2019 Chronic Other nutritional; endocrine; and metabolic disorders (2 sources) Morbid (severe) obesity due to excess calories; Translations: [Morbid (severe) obesity due to excess calories] Onset: 01-24-2021 Resolved: 01-24-2021 Chronic Other nutritional; endocrine; and metabolic disorders (2 sources) Body mass index 40+ - severely obese; Translations: [Body mass index (BMI) 45.0-49.9, adult] 03-12-2024 Chronic Other nutritional; endocrine; and metabolic disorders (1 source) Body mass index (BMI) 45.0-49.9, adult; Translations: [Body mass index (BMI) 45.0-49.9, adult] Onset: 03-12-2024 Chronic Residual codes; unclassified (1 source) Family history [...] MALIG NEOPLASM OTH ORGN/SYS] Onset: 05-14-2022 Episodic Residual codes; unclassified (4 sources) Pain; Translations: [Pain, unspecified] 05-25-2020 Episodic Residual codes; unclassified (1 source) Altered mental status, unspecified; Translations: [Altered mental status, unspecified] Onset: 05-15-2024 Episodic Skin and subcutaneous tissue infections (4 sources) Cellulitis; Translations: [Cellulitis, unspecified] Onset: 03-05-2024 09-14-2019 Episodic Spondylosis; intervertebral disc disorders; other back problems (20 sources) Spondylosis without myelopathy or radiculopathy, cervical region; Translations: [Other cervical disc degeneration, unspecified cervical region] Onset: 08-02-2021 Chronic Unclassified (2 sources) DX INCONTINENCE; Translations: [DX INCONTINENCE] Onset: 07-09-2018 Unclassified (19 sources) Pressure injury of right calf, stage 3 (CMS-HCC) 02-28-2024 Unclassified (1 source) Post-op Onset: 04-01-2023 Unclassified (1 source) POSITIVE OCCULT STOOL, BLOOD TEST, COLON CANCER SCREENING Onset: 02-19-2024 Unclassified (1 source) Colon Cancer Screening Onset: 06-18-2023 Unclassified (2 sources) Autogenerated Problem Onset: 06-29-2024 06-29-2024 Unclassified (1 source) Wound Check Onset: 07-17-2024 Unclassified (1 source) Outpatient Infusion Onset: 05-22-2024 Unclassified (1 source) EMS Onset: 05-15-2024 Past or Other Problems Problem Classification Problem Date Documented Da te Episodic/Chronic Allergic reactions (20 sources) Irritant contact dermatitis; Translations: [Other specified dermatitis] Onset: 09-14-2022 09-14-2022 Episodic Complication of device; implant or graft (6 sources) Stenosis of other vascular prosthetic devices, implants and grafts, subsequent encounter; Translations: [Complication associated with device] Onset: 05-02-2023 02-28-2024 Episodic Complications of surgical procedures or medical care (20 sources) Vascular complication of medical care; Translations: [Complication of other artery following a procedure, not elsewhere classified, initial encounter] Onset: 05-30-2023 05-30-2023 Episodic Fracture of lower limb (20 sources) Fracture of femur; Translations: [Unspecified fracture of unspecified femur, initial encounter for closed fracture] Onset: 09-29-2013 04-28-2014 Episodic Mood disorders (20 sources) Mood disorders Onset: 05-30-2023 Resolved: 05-17-2024 05-30-2023 Other circulatory disease (1 source) Other specified symptoms and signs involving the circulatory and respiratory systems; Translations: [Other specified symptoms and signs involving the circulatory and respiratory systems] Onset: 03-02-2024 Episodic Other connective tissue disease (1 source) Other muscle spasm; Translations: [OTHER MUSCLE SPASM] Onset: 01-29-2022 Episodic Other connective tissue disease (20 sources) Pain in limb; Translations: [Pain in unspecified limb] Onset: 09-25-2023 09-25-2023 Episodic Other connective tissue disease (20 sources) Enthesopathy of hip region; Translations: [Other specified enthesopathies of unspecified lower limb, excluding foot] Onset: 09-25-2023 09-25-2023 Episodic Other gastrointestinal disorders (1 source) Other fecal abnormalities; Translations: [Other fecal abnormalities] Onset: 06-18-2023 Episodic Other nervous system disorders (12 sources) Paresthesia; Translations: [Paresthesia of skin] Onset: 09-25-2023 09-25-2023 Episodic Other nervous system disorders (20 sources) Incoordination; Translations: [Unspecified lack of coordination] Onset: 09-25-2023 09-25-2023 Episodic Other nervous system disorders (20 sources) Numbness; Translations: [Anesthesia of skin] Onset: 09-25-2023 09-25-2023 Episodic Other nervous system disorders (20 sources) Skin sensation disturbance; Translations: [Unspecified disturbances of skin sensation] Onset: 09-25-2023 09-25-2023 Episodic Other screening for suspected conditions (not mental disorders or infectious disease) (6 sources) Encounter for screening mammogram for malignant neoplasm of breast; Translations: [Patient encounter status] Onset: 05-14-2022 03-14-2018 Episodic Phlebitis; thrombophlebitis and thromboembolism (20 sources) H/O: Deep vein thrombosis; Translations: [Personal history of other venous thrombosis and embolism] Onset: 09-29-2013 05-04-2021 Episodic Residual codes; unclassified (20 sources) FH: Multiple sclerosis; Translations: [Family history of epilepsy and other diseases of the nervous system] Onset: 09-13-2022 09-13-2022 Episodic Residual codes; unclassified (20 sources) Urinary catheter in situ; Translations: [Presence of other specified devices] Onset: 09-13-2022 09-13-2022 Episodic Spondylosis; intervertebral disc disorders; other back problems (20 sources) Cervicalgia; Translations: [Cervical disc disorder with radiculopathy, unspecified cervical region] Onset: 01-24-2021 Resolved: 01-24-2021 Episodic Unclassified (1 source) Preprocedural examination done 03-12-2024 Results Test Name Value Interpretation Reference Range Facility Debridementon 07-17-2024 GINA Thurman 07/17/2024 2:12 PM Debridement Performed by: GINA Thurman Authorized by: GINA Thurman Associated wounds: Wound 02/14/24 1 Pressure Injury Calf Right;Right Lateral;Proximal Consent: Consent obtained: Verbal and written Consent given by: Patient Risks discussed: Yes Debridement Details: Performed by: AGRICULTURE INSTRUCTOR Type: Sharp Level: Subcutaneous Tissue, Devitalized tissue and other material debrided: Subcutaneous tissue and fibrin Anesthesia administration: topical Anesthesia: EMLA Total Surface Area Debrided cm^2: 21.66 Specimen Taken: None Instrument: Curette Amount of bleeding: Medium Bleeding Control: Pressure Response to treatment: Procedure was tolerated well Tissue Applied?: No MANUALLY TRANSCRIBED RESULTS [facility] No Panel Informationon 07-17 Applied to right leg and foot wounds MANUALLY TRANSCRIBED RESULTS [facility] No Panel Informationon 06-12 APPLIED IN CLINIC TODAY MANUALLY TRANSCRIBED RESULTS [facility] BASIC METABOLIC PANLon 05-20 Anion gap [Moles/Vol] 14 mmol/L Normal 5-15 [facility] Comment on above: Performed By: #### C BCA, BMP #### [facility] ([id number]) [address], [address] [place] [address] Calcium [Mass/Vol] 8.3 mg/dL Low 8.5-10.5 [facility] Comment on above: Performed By: #### C BCA, BMP #### [facility] ([id number]) [address], [address] [place] [address] Chloride [Moles/Vol] 100 mmol/L Normal 98-109 [facility] Comment on above: Performed By: #### C BCA, BMP #### [facility] ([id number]) [address], [address] [place] [address] CO2 [Moles/Vol] 24 mmol/L Normal 22-32 [facility] Comment on above: Performed By: #### C BCA, BMP #### [facility] ([id number]) [address], [address] [place] [address] Creatinine [Mass/Vol] 6.45 mg/dL High 0.40-1.00 [facility] Comment on above: Result Comment: METH OD TRACEABLE TO IDMS STANDARD Performed By: #### C BCA, BMP #### [facility] ([id number]) [address], [facility] [address] [place] [address] GFR/1.73 sq M.predicted among non-blacks MDRD (S/P/Bld) [Vol rate/Area] 7 mL/min/{1.73_m2} Low >59 [facility] Comment on above: Result Comment: Reported eGFR is based on the CKD-EPI 2020 equation that does not use a race coefficient. Performed By: #### C BCA, BMP #### [facility] ([id number]) [address], [address] [place] [address] Glucose [Mass/Vol] 84 mg/dL Normal 65-99 [facility] Comment on above: Performed By: #### C BCA, BMP #### [facility] ([id number]) [address] [address] [place] [address] Potassium [Moles/Vol] 4.7 mmol/L Normal 3.5-5.0 [facility] Comment on above: Performed By: #### C BCA, BMP #### [facility] ([id number]) [address], [address] [place] [address] Sodium [Moles/Vol] 138 mmol/L Normal 134-146 [facility] Comment on above: Performed By: #### C BCA, BMP #### [facility] ([id number]) [address] [facility], [address] [place] [address] Urea nitrogen [Mass/Vol] 50 mg/dL High 5-27 [facility] Comment on above: Performed By: #### Trini SMITH, ELMER #### [facility] ([id number]) [address] [facility], [address] [place] [address] Basic Metabolic Panelon 05-09 Anion gap [Moles/Vol] 14 mmol/L 5 - 15 mmol/L [facility] Calcium [Mass/Vol] 8.3 mg/dL Low 8.5 - 10. 5 mg/dL [facility] Chloride [Moles/Vol] 100 mmol/L 98 - 10 9 mmol/L [facility] CO2 [Moles/Vol] 24 mmol/L 22 - 32 mmol/L [facility] Creatinine [Mass/Vol] 6.45 mg/dL High 0.40 - 1.00 mg/dL [facility] Comment on above: METHOD TRACEABLE TO IDNY STANDARD eGFR (CKD-EPI)non-race dependent 7 Low - PINF [facility] Comment on above: Reported eGFR is based on the CKD-EPI 2020 equation that does not use a race coefficient. Glucose [Mass/Vol] 84 mg/dL 65 - 99 mg/dL [facility] Potassium [Moles/Vol] 4.7 mmol/L 3.5 - 5.0 mmol/L [facility] Sodium [Moles/Vol] 138 mmol/L 134 - 146 mmol/L [facility] Urea nitrogen [Mass/Vol] 50 mg/dL High 5 - 27 mg/dL [facility] CBC AND AUTO DIFFon 05-21-19 25 Band form neutrophils/100 WBC (Bld) 7.0 % Normal [facility] Comment on above: Performed By: #### ELMER Feliz BCA #### [facility] ([id number]) [address] [facility], [address] [place] [address] Eosinophils (Bld) [#/Vol] 0.3 10*3/uL Normal 0.0-0.4 [facility] Comment on above: Performed By: #### Trini SMITH, BMP #### [facility] ([id number]) [address], [address] [place] [address] Eosinophils/100 WBC (Bld) 3.0 % Normal [facility] Comment on above: Performed By: #### C BCA, BMP #### [facility] ([id number]) [address], [address] [place] [address] Erythrocyte distribution width (RBC) [Ratio] 15.7 % High 11.5-15.0 [facility] Comment on above: Performed By: #### C LUIS, BMP #### [facility] ([id number]) [address], [address] [place] [address] Hematocrit (Bld) [Volume fraction] 20.6 % Low 35-47 [facility] Comment on above: Performed By: #### C LUIS, BMP #### [facility] ([id number]) [address], [address] [place] [address] Hemoglobin (Bld) [Mass/Vol] 7.0 g/dL Low 11.7-15.5 [facility] Comment on above: Performed By: #### C LUIS, BMP #### [facility] ([id number]) [address], [address] [place] [address] Lymphocytes (Bld) [#/Vol] 1.5 10*3/uL Normal 1.0-3.5 [facility] Comment on above: Performed By: #### C BCA, BMP #### [facility] ([id number]) [address], [address] [place] [address] Lymphocytes/100 WBC (Bld) 16.0 % Normal [facility] Comment on above: Performed By: #### C BCA, BMP #### [facility] ([id number]) [address], [address] [place] [address] MCH (RBC) [Entitic mass] 33.6 pg Normal 27-34 [facility] Comment on above: Performed By: #### C BCA, BMP #### [facility] ([id number]) [address] [address] [place] [address] MCHC (RBC) [Mass/Vol] 33.8 g/dL Normal 32-36 [facility] Comment on above: Performed By: #### C LUIS, BMP #### [facility] ([id number]) [address], [facility] [address] [place] [address] MCV (RBC) [Entitic vol] 99 fL Normal 80-100 [facility] Comment on above: Performed By: #### C LUIS, BMP #### [facility] ([id number]) [address] [address] Monocytes (Bld) [#/Vol] 0.7 10*3/uL Normal 0-0.9 [facility] Comment on above: Performed By: #### C LUIS, BMP #### [facility] ([id number]) [address] [address] [place] [address] Monocytes/100 WBC (Bld) 8.0 % Normal [facility] Comment on above: Performed By: #### C LUIS, BMP #### [facility] ([id number]) [address] [address] [place] [address] Neutrophils (Bld) [#/Vol] 6.7 10*3/uL High 1.5-6.6 [facility] Comment on above: Performed By: #### C BCA, BMP #### [facility] ([id number]) [address] [address] [place] [address] Platelet mean volume (Bld) [Entitic vol] 8.6 fL Normal 7-12 [facility] Comment on above: Performed By: #### C BCA, BMP #### [facility] ([id number]) [address], [address] [place] [address] Platelets (Bld) [#/Vol] 181 10*3/uL Normal 150-450 [facility] Comment on above: Performed By: #### Trini SMITH, BMP #### [facility] ([id number]) [address], [facility] [address] [place] [address] RBC COUNT 2.08 X10E12/L Low 3.80-5.20 [facility] Comment on above: Performed By: #### Trini SMITH, BMP #### [facility] ([id number]) [address], [facility] [address] [place] [address] RBC morphology finding Nom (Bld) NORMAL Normal [facility] Comment on above: Performed By: #### Trini SMITH, BMP #### [facility] ([id number]) [address], [address] [address] SEG NEUTROPHIL 66.0 % Normal [facility] Comment on above: Performed By: #### Trini SMITH, BMP #### [facility] ([id number]) [address], [address] [address] WBC (Bld) [#/Vol] 9.2 10*3/uL Normal 4.0-11.0 [facility] Comment on above: Performed By: #### Trini SMITH, BMP #### [facility] ([id number]) [address], [address] [address] CBC auto differentialon 05-09 Band form neutrophils/100 WBC (Bld) 7 % [facility] Eosinophils (Bld) [#/Vol] 0.3 10*3/uL [facility] Eosinophils/100 WBC (Bld) 3 % [facility] Erythrocyte distribution width (RBC) [Ratio] 15.7 % High 11.5 - 15.0 % [facility] Hematocrit (Bld) [Volume fraction] 20.6 % Low 35 - 47 % [facility] Hemoglobin (Bld) [Mass/Vol] 7 g/dL Low 11.7 - 15.5 g/dL [facility] Interpretation and review of laboratory results Abnormal [facility] Lymphocytes (Bld) [#/Vol] 1.5 10*3/uL [facility] Lymphocytes/100 WBC (Bld) 16 % [facility] MCH (RBC) [Entitic mass] 33.6 pg 27 - 34 pg [facility] MCHC (RBC) [Mass/Vol] 33.8 g/dL 32 - 36 g/dL [facility] MCV (RBC) [Entitic vol] 99 fL 80 - 100 fL [facility] Monocytes (Bld) [#/Vol] 0.7 10*3/uL [facility] Monocytes/100 WBC (Bld) 8 % [facility] Neutrophils (Bld) [#/Vol] 6.7 10*3/uL High [facility] Platelet mean volume (Bld) [Entitic vol] 8.6 fL 7 - 12 [facility]L [facility] Platelets (Bld) [#/Vol] 181 10*3/uL [facility] Polymorphonuclear cells/100 WBC (Bld) NORMAL [facility] RBC (Bld) [#/Vol] 2.08 10*6/uL Low [facility] Segmented neutrophils/100 WBC (Bld) 66 % [facility] WBC corrected for nucl RBC Auto (Bld) [#/Vol] 9.2 [facility] MAGNESIUMon 05-20-2024 Magnesium [Mass/Vol] 2.3 mg/dL Normal 1.8-2.6 [facility] Comment on above: Performed By: #### C BCA, BMP #### [facility] ([id number]) [address] [place] [address], [address] [place] [address] Magnesiumon 05-20-2024 Magnesium [Mass/Vol] 2.3 mg/dL 1.8 - 2 .6 mg/dL [facility] No Panel Informationon 05-20 Interpretation and review of laboratory results Abnormal [facility] PHOSPHORUSon 05-20-2024 Phosphate [Mass/Vol] 5.0 mg/dL High 2.4-4.9 [facility] Comment on above: Performed By: #### C BCA, BMP #### [facility] ([id number]) [address], [address] [place] [address] Phosphoruson 05-20-2024 Phosphate [Mass/Vol] 5 mg/dL High 2.4 - 4 .9 mg/dL [facility] BASIC METABOLIC PANLon 05-19 Anion gap [Moles/Vol] 13 mmol/L Normal 5-15 [facility] Comment on above: Performed By: #### B MP, CBC #### [facility] ([id number]) [address], [address] [place] [address] Calcium [Mass/Vol] 8.2 mg/dL Low 8.5-10.5 [facility] Comment on above: Performed By: #### B MP, CBC #### [facility] ([id number]) [address], [address] [place] [address] Chloride [Moles/Vol] 101 mmol/L Normal 98-109 [facility] Comment on above: Performed By: #### B MP, CBC #### [facility] ([id number]) [address], [address] [place] [address] CO2 [Moles/Vol] 23 mmol/L Normal 22-32 [facility] Comment on above: Performed By: #### B MP, CBC #### [facility] ([id number]) [address], [address] [place] [address] Creatinine [Mass/Vol] 5.54 mg/dL High 0.40-1.00 [facility] Comment on above: Result Comment: METH OD TRACEABLE TO IDMS STANDARD Performed By: #### B MP, CBC #### [facility] ([id number]) [address], [address] [place] [address] GFR/1.73 sq M.predicted among non-blacks MDRD (S/P/Bld) [Vol rate/Area] 8 mL/min/{1.73_m2} Low >59 [facility] Comment on above: Result Comment: Reported eGFR is based on the CKD-EPI 2020 equation that does not use a race coefficient. Performed By: #### B JO ANN, CBC #### [facility] ([id number]) [address] [address] [place] [address] Glucose [Mass/Vol] 86 mg/dL Normal 65-99 [facility] Comment on above: Performed By: #### B JO ANN, CBC #### [facility] ([id number]) [address] [address] [place] [address] Potassium [Moles/Vol] 4.7 mmol/L Normal 3.5-5.0 [facility] Comment on above: Performed By: #### B JO ANN, CBC #### [facility] ([id number]) [address], [address] [place] [address] Sodium [Moles/Vol] 137 mmol/L Normal 134-146 [facility] Comment on above: Performed By: #### B JO ANN, CBC #### [facility] ([id number]) [address], [address] [place] [address] Urea nitrogen [Mass/Vol] 43 mg/dL High 5-27 [facility] Comment on above: Performed By: #### Greg CHERRY, CBC #### [facility] ([id number]) [address] [address] [place] [address] Basic Metabolic Panelon - Anion gap [Moles/Vol] 13 mmol/L 5 - 15 mmol/L [facility] Calcium [Mass/Vol] 8.2 mg/dL Low 8.5 - 10. 5 mg/dL [facility] Chloride [Moles/Vol] 101 mmol/L 98 - 10 9 mmol/L [facility] CO2 [Moles/Vol] 23 mmol/L 22 - 32 mmol/L [facility] Creatinine [Mass/Vol] 5.54 mg/dL High 0.40 - 1.00 mg/dL [facility] Comment on above: METHOD TRACEABLE TO [facility] STANDARD eGFR (CKD-EPI)non-race dependent 8 Low - PINF [facility] Comment on above: Reported eGFR is based on the CKD-EPI 2020 equation that does not use a race coefficient. Glucose [Mass/Vol] 86 mg/dL 65 - 99 mg/dL [facility] Interpretation and review of laboratory results Abnormal [facility] Potassium [Moles/Vol] 4.7 mmol/L 3.5 - 5.0 mmol/L [facility] Sodium [Moles/Vol] 137 mmol/L 134 - 146 mmol/L [facility] Urea nitrogen [Mass/Vol] 43 mg/dL High 5 - 27 mg/dL [facility] CBC AND AUTO DIFFon 05-20-19 25 Eosinophils (Bld) [#/Vol] 0.4 10*3/uL Normal 0.0-0.4 [facility] Comment on above: Performed By: #### B MP, CBC #### [facility] ([id number]) [address] [address] Eosinophils/100 WBC (Bld) 4.8 % Normal [facility] Comment on above: Performed By: #### B MP, CBC #### [facility] ([id number]) [address] [address] Erythrocyte distribution width (RBC) [Ratio] 15.5 % High 11.5-15.0 [facility] Comment on above: Performed By: #### B MP, CBC #### [facility] ([id number]) [address] [address] Hematocrit (Bld) [Volume fraction] 20.0 % Low 35-47 [facility] Comment on above: Performed By: #### B MP, CBC #### [facility] ([id number]) [address] [place] [address] Hemoglobin (Bld) [Mass/Vol] 6.8 g/dL Critically low 11.7-15.5 [facility] Comment on above: Performed By: #### B MP, CBC #### [facility] ([id number]) [address], [address] [place] [address] Lymphocytes (Bld) [#/Vol] 1.2 10*3/uL Normal 1.0-3.5 [facility] Comment on above: Performed By: #### B MP, CBC #### [facility] ([id number]) [address], [facility] [address] [place] [address] Lymphocytes/100 WBC (Bld) 15.2 % Normal [facility] Comment on above: Performed By: #### B MP, CBC #### [facility] ([id number]) [address], [address] [place] [address] MCH (RBC) [Entitic mass] 33.5 pg Normal 27-34 [facility] Comment on above: Performed By: #### B MP, CBC #### [facility] ([id number]) [address], [address] [place] [address] MCHC (RBC) [Mass/Vol] 34.1 g/dL Normal 32-36 [facility] Comment on above: Performed By: #### B MP, CBC #### [facility] ([id number]) [address], [address] [place] [address] MCV (RBC) [Entitic vol] 98 fL Normal 80-100 [facility] Comment on above: Performed By: #### B MP, CBC #### [facility] ([id number]) [address], [address] [place] [address] Monocytes (Bld) [#/Vol] 0.2 10*3/uL Normal 0-0.9 [facility] Comment on above: Performed By: #### B MP, CBC #### [facility] ([id number]) [address], [address] [place] [address] Monocytes/100 WBC (Bld) 2.9 % Normal [facility] Comment on above: Performed By: #### B MP, CBC #### [facility] ([id number]) [address], [address] [place] [address] MYELOCYTE 1.0 % Normal [facility] Comment on above: Performed By: #### B MP, CBC #### [facility] ([id number]) [address], [address] [place] [address] Neutrophils (Bld) [#/Vol] 5.8 10*3/uL Normal 1.5-6.6 [facility] Comment on above: Performed By: #### B MP, CBC #### [facility] ([id number]) [address], [address] [place] [address] Platelet mean volume (Bld) [Entitic vol] 8.7 fL Normal 7-12 [facility] Comment on above: Performed By: #### B MP, CBC #### [facility] ([id number]) [address], [address] [place] [address] Platelets (Bld) [#/Vol] 172 10*3/uL Normal 150-450 [facility] Comment on above: Performed By: #### B MP, CBC #### [facility] ([id number]) [address], [address] [place] [address] RBC COUNT 2.04 X10E12/L Low 3.80-5.20 [facility] Comment on above: Performed By: #### B MP, CBC #### [facility] ([id number]) [address], [address] [place] [address] RBC morphology finding Nom (Bld) REVIEWED Normal [facility] Comment on above: Performed By: #### B MP, CBC #### [facility] ([id number]) [address], [address] [place] [address] SEG NEUTROPHIL 76.1 % Normal [facility] Comment on above: Performed By: #### B MP, CBC #### [facility] ([id number]) [address] [facility], [address] [place] [address] WBC (Bld) [#/Vol] 7.6 10*3/uL Normal 4.0-11.0 [facility] Comment on above: Performed By: #### B MP, CBC #### [facility] ([id number]) [address], [address] [place] [address] CBC auto differentialon - Eosinophils (Bld) [#/Vol] 0.4 10*3/uL [facility] Eosinophils/100 WBC (Bld) 4.8 % [facility] Erythrocyte distribution width (RBC) [Ratio] 15.5 % High 11.5 - 15.0 % [facility] Hematocrit (Bld) [Volume fraction] 20 % Low 35 - 47 % [facility] Hemoglobin (Bld) [Mass/Vol] 6.8 g/dL Critically low 11.7 - 15.5 g/dL [facility] Interpretation and review of laboratory results Abnormal [facility] Lymphocytes (Bld) [#/Vol] 1.2 10*3/uL [facility] Lymphocytes/100 WBC (Bld) 15.2 % [facility] MCH (RBC) [Entitic mass] 33.5 pg 27 - [address] [facility] MCHC (RBC) [Mass/Vol] 34.1 g/dL 32 - 36 g/dL [facility] MCV (RBC) [Entitic vol] 98 fL 80 - [address] [facility] Monocytes (Bld) [#/Vol] 0.2 10*3/uL [facility] Monocytes/100 WBC (Bld) 2.9 % [facility] Myelocytes/100 WBC (Bld) 1 % [facility] Neutrophils (Bld) [#/Vol] 5.8 10*3/uL [facility] Platelet mean volume (Bld) [Entitic vol] 8.7 fL 7 - 12 fL [facility] Platelets (Bld) [#/Vol] 172 10*3/uL [facility] Polymorphonuclear cells/100 WBC (Bld) REVIEWED [facility] RBC (Bld) [#/Vol] 2.04 10*6/uL Low [facility] Segmented neutrophils/100 WBC (Bld) 76.1 % [facility] WBC corrected for nucl RBC Auto (Bld) [#/Vol] 7.6 [facility] HGBon 05-19-2024 Hematocrit (Bld) [Volume fraction] 21.7 % Low 35-47 [facility] Comment on above: Performed By: #### C BCA, BMP #### [facility] ([id number]) [address], [address] [place] [address] Hemoglobin (Bld) [Mass/Vol] 7.3 g/dL Low 11.7-15.5 [facility] Comment on above: Performed By: #### C BCA, BMP #### [facility] ([id number]) [address], [address] [place] [address] Hemoglobin and hematocrit, b loodon 05-19-2024 Hematocrit (Bld) [Volume fraction] 21.7 % Low 35 - 47 % [facility] Hemoglobin (Bld) [Mass/Vol] 7.3 g/dL Low 11.7 - 15.5 g/dL [facility] Interpretation and review of laboratory results Abnormal [facility] MAGNESIUMon 05-19-2024 Magnesium [Mass/Vol] 2.1 mg/dL Normal 1.8-2.6 [facility] Comment on above: Performed By: #### B MP, CBC #### [facility] ([id number]) [address], [address] [place] [address] Magnesiumon 05-19-2024 Magnesium [Mass/Vol] 2.1 mg/dL 1.8 - 2 .6 mg/dL [facility] No Panel Informationon 05-19 [facility] PHOSPHORUSon 05-19-2024 Phosphate [Mass/Vol] 4.2 mg/dL Normal 2.4-4.9 [facility] Comment on above: Result Comment: SPEC IMEN HEMOLYZED, RESULTS INCREASED SLIGHTLY HEMOLYZED Performed By: #### B MP, CBC #### [facility] ([id number]) [address], [address] [place] [address] Phosphoruson 05-19-2024 Phosphate [Mass/Vol] 4.2 mg/dL 2.4 - 4 .9 mg/dL [facility] Comment on above: SPECIMEN HEMOLYZED, RESULTS INCREASED SLIGHTLY HEMOLYZED BASIC METABOLIC PANLon 05-18 Anion gap [Moles/Vol] 15 mmol/L Normal 5-15 [facility] Comment on above: Performed By: #### B JO ANN, CBC #### [facility] ([id number]) [address], [address] [place] [address] Calcium [Mass/Vol] 8.6 mg/dL Normal 8.5-10.5 [facility] Comment on above: Performed By: #### B MP, CBC #### [facility] ([id number]) [address], [address] [place] [address] Chloride [Moles/Vol] 96 mmol/L Low 98-109 [facility] Comment on above: Performed By: #### B MP, CBC #### [facility] ([id number]) [address], [address] [place] [address] CO2 [Moles/Vol] 23 mmol/L Normal 22-32 [facility] Comment on above: Performed By: #### B MP, CBC #### [facility] ([id number]) [address], [address] [place] [address] Creatinine [Mass/Vol] 7.57 mg/dL High 0.40-1.00 [facility] Comment on above: Result Comment: METH OD TRACEABLE TO IDMS STANDARD Performed By: #### B JO ANN, CBC #### [facility] ([id number]) [address], [address] [place] [address] GFR/1.73 sq M.predicted among non-blacks MDRD (S/P/Bld) [Vol rate/Area] 6 mL/min/{1.73_m2} Low >59 [facility] Comment on above: Result Comment: Reported eGFR is based on the CKD-EPI 2020 equation that does not use a race coefficient. Performed By: #### B JO ANN, CBC #### [facility] ([id number]) [address], [address] [place] [address] Glucose [Mass/Vol] 89 mg/dL Normal 65-99 [facility] Comment on above: Performed By: #### B JO ANN, CBC #### [facility] ([id number]) [address], [address] [place] [address] Potassium [Moles/Vol] 5.2 mmol/L High 3.5-5.0 [facility] Comment on above: Performed By: #### B JO ANN, CBC #### [facility] ([id number]) [address], [address] [place] [address] Sodium [Moles/Vol] 134 mmol/L Normal 134-146 [facility] Comment on above: Performed By: #### B JO ANN, CBC #### [facility] ([id number]) [address], [address] [place] [address] Urea nitrogen [Mass/Vol] 76 mg/dL High 5-27 [facility] Comment on above: Performed By: #### B JO ANN, CBC #### [facility] ([id number]) [address], [address] [place] [address] Basic Metabolic Panelon 03-1 Anion gap [Moles/Vol] 15 mmol/L 5 - 15 mmol/L [facility] Calcium [Mass/Vol] 8.6 mg/dL 8.5 - 10. 5 mg/dL [facility] Chloride [Moles/Vol] 96 mmol/L Low 98 - 10 9 mmol/L [facility] CO2 [Moles/Vol] 23 mmol/L 22 - 32 mmol/L [facility] Creatinine [Mass/Vol] 7.57 mg/dL High 0.40 - 1.00 mg/dL [facility] Comment on above: METHOD TRACEABLE TO [facility] STANDARD eGFR (CKD-EPI)non-race dependent 6 Low - PINF [facility] Comment on above: Reported eGFR is based on the CKD-EPI 2020 equation that does not use a race coefficient. Glucose [Mass/Vol] 89 mg/dL 65 - 99 mg/dL [facility] Potassium [Moles/Vol] 5.2 mmol/L High 3.5 - 5.0 mmol/L [facility] Sodium [Moles/Vol] 134 mmol/L 134 - 146 mmol/L [facility] Urea nitrogen [Mass/Vol] 76 mg/dL High 5 - 27 mg/dL [facility] CBC AND AUTO DIFFon 05-19-19 25 ABSOLUTE BASOPHIL 0.1 X10E9/L Normal 0.0-0.2 [facility] Comment on above: Performed By: #### B MP, CBC #### [facility] ([id number]) [address], [facility] [address] [place] [address] ABSOLUTE NEUTROPHIL 4.6 X10E9/L Normal 1.5-6.6 [facility] Comment on above: Performed By: #### B MP, CBC #### [facility] ([id number]) [address] [address] [place] [address] Basophils/100 WBC (Bld) 1.0 % Normal [facility] Comment on above: Performed By: #### B MP, CBC #### [facility] ([id number]) [address] [place] [address] Eosinophils (Bld) [#/Vol] 0.3 10*3/uL Normal 0.0-0.4 [facility] Comment on above: Performed By: #### B MP, CBC #### [facility] ([id number]) [address], [address] [place] [address] Eosinophils/100 WBC (Bld) 4.2 % Normal [facility] Comment on above: Performed By: #### B MP, CBC #### [facility] ([id number]) [address], [address] [place] [address] Erythrocyte distribution width (RBC) [Ratio] 15.9 % High 11.5-15.0 [facility] Comment on above: Performed By: #### B MP, CBC #### [facility] ([id number]) [address], [address] [place] [address] Hematocrit (Bld) [Volume fraction] 22.8 % Low 35-47 [facility] Comment on above: Performed By: #### B MP, CBC #### [facility] ([id number]) [address], [address] [place] [address] Hemoglobin (Bld) [Mass/Vol] 7.9 g/dL Low 11.7-15.5 [facility] Comment on above: Performed By: #### B MP, CBC #### [facility] ([id number]) [address], [address] [place] [address] Lymphocytes (Bld) [#/Vol] 1.6 10*3/uL Normal 1.0-3.5 [facility] Comment on above: Performed By: #### B MP, CBC #### [facility] ([id number]) [address] [address] [place] [address] Lymphocytes/100 WBC (Bld) 22.1 % Normal [facility] Comment on above: Performed By: #### B MP, CBC #### [facility] ([id number]) [address], [address] [place] [address] MCH (RBC) [Entitic mass] 33.8 pg Normal 27-34 [facility] Comment on above: Performed By: #### B MP, CBC #### [facility] ([id number]) [address], [address] [place] [address] MCHC (RBC) [Mass/Vol] 34.6 g/dL Normal 32-36 [facility] Comment on above: Performed By: #### B MP, CBC #### [facility] ([id number]) [address], [address] [place] [address] MCV (RBC) [Entitic vol] 98 fL Normal 80-100 [facility] Comment on above: Performed By: #### B MP, CBC #### [facility] ([id number]) [address], [address] [place] [address] Monocytes (Bld) [#/Vol] 0.7 10*3/uL Normal 0-0.9 [facility] Comment on above: Performed By: #### B MP, CBC #### [facility] ([id number]) [address], [address] [place] [address] Monocytes/100 WBC (Bld) 10.2 % Normal [facility] Comment on above: Performed By: #### B MP, CBC #### [facility] ([id number]) [address], [address] [place] [address] Neutrophils/100 WBC (Bld) 62.5 % Normal [facility] Comment on above: Performed By: #### B MP, CBC #### [facility] ([id number]) [address], [address] [place] [address] Platelet mean volume (Bld) [Entitic vol] 8.9 fL Normal 7-12 [facility] Comment on above: Performed By: #### B MP, CBC #### [facility] ([id number]) [address], [address] [place] [address] Platelets (Bld) [#/Vol] 161 10*3/uL Normal 150-450 [facility] Comment on above: Performed By: #### B MP, CBC #### [facility] ([id number]) [address], [address] [place] [address] RBC COUNT 2.33 X10E12/L Low 3.80-5.20 [facility] Comment on above: Performed By: #### B MP, CBC #### [facility] ([id number]) [address], [address] [address] WBC (Bld) [#/Vol] 7.3 10*3/uL Normal 4.0-11.0 [facility] Comment on above: Performed By: #### B MP, CBC #### [facility] ([id number]) [address], [address] [place] [address] CBC auto differentialon 05-09 Basophils (Bld) [#/Vol] 0.1 10*3/uL [facility] Basophils/100 WBC (Bld) 1 % [facility] Eosinophils (Bld) [#/Vol] 0.3 10*3/uL [facility] Eosinophils/100 WBC (Bld) 4.2 % [facility] Erythrocyte distribution width (RBC) [Ratio] 15.9 % High 11.5 - 15.0 % [facility] Hematocrit (Bld) [Volume fraction] 22.8 % Low 35 - 47 % [facility] Hemoglobin (Bld) [Mass/Vol] 7.9 g/dL Low 11.7 - 15.5 g/dL [facility] Interpretation and review of laboratory results Abnormal [facility] Lymphocytes (Bld) [#/Vol] 1.6 10*3/uL [facility] Lymphocytes/100 WBC (Bld) 22.1 % [facility] MCH (RBC) [Entitic mass] 33.8 pg 27 - [address] [facility] MCHC (RBC) [Mass/Vol] 34.6 g/dL 32 - 36 g/dL [facility] MCV (RBC) [Entitic vol] 98 fL 80 - 100 fL [facility] Monocytes (Bld) [#/Vol] 0.7 10*3/uL [facility] Monocytes/100 WBC (Bld) 10.2 % [facility] Neutrophils (Bld) [#/Vol] 4.6 10*3/uL [facility] Neutrophils/100 WBC (Bld) 62.5 % [facility] Platelet mean volume (Bld) [Entitic vol] 8.9 fL 7 - 12 fL [facility] Platelets (Bld) [#/Vol] 161 10*3/uL [facility] RBC (Bld) [#/Vol] 2.33 10*6/uL Low [facility] WBC corrected for nucl RBC Auto (Bld) [#/Vol] 7.3 [facility] HBV surface Ab IA Qnon 05-18 [facility] Anti HBs quant. 46.00 mIU/mL Normal [facility] Comment on above: Result Comment: NOTE Vaccinated: >=10.00 mIU/mL, Positive (Immune) Unvaccinated: <10.00 mIU/mL, Negative (Not Immune) Interpretive values have changed due to implementation of a new method. Values run higher than previous method. Performed By: #### B MP, CBC #### [facility] ([id number]) [address], [address] [place] [address] HBV surface Ag IA Qlon 05-18 [facility] HEPATITIS B SURF AG Non-Reactive Normal NRCT [facility] Comment on above: Result Comment: NEW TEST METHOD Performed By: #### B MP, CBC #### [facility] ([id number]) [address] [facility], [address] [place] [address] Hemodialysis inpatienton Bridget Singer RN 05/18/2024 12:03 PM Starting weight: 133.5 Kg Post weight: 131 Kg Goal fluid Removal: 2 L Fluid Removal: 2.5 L 3.5 hours of HD. 10 mg midodrine given for hypotension. No additional interventions required. Pt and access tolerated treatment appropriately. [facility] Hepatitis B Surface Antibody Quantitationon 05-18-2024 HBV surface Ab IA Qn 46 m[IU]/mL mIU/mL [facility] Comment on above: NOTE Vaccinated: >=10.00 mIU/mL, Positive (Immune) Unvaccinated: <10.00 mIU/mL, Negative (Not Immune) Interpretive values have changed due to implementation of a new method. Values run higher than previous method. Hepatitis B surface antigeno n 05-18-2024 HBV surface Ag IA Ql Non-Reactive Non-Kiara ctive ^Non-Reactiv e [facility] Comment on above: NEW TEST METHOD MAGNESIUMon 05-18-2024 Magnesium [Mass/Vol] 2.5 mg/dL Normal 1.8-2.6 [facility] Comment on above: Performed By: #### B MP, CBC #### [facility] ([id number]) [address] [facility], [address] [place] [address] Magnesiumon 05-18-2024 Magnesium [Mass/Vol] 2.5 mg/dL 1.8 - 2 .6 mg/dL [facility] Magnesium [Mass/Vol] 2.4 mg/dL 1.8 - 2 .6 mg/dL [facility] Magnesium [Mass/Vol]on 05-18 [facility] No Panel Informationon 05-18 Interpretation and review of laboratory results Abnormal [facility] PHOSPHORUSon 05-18-2024 Phosphate [Mass/Vol] 5.6 mg/dL High 2.4-4.9 [facility] Comment on above: Performed By: #### B MP, CBC #### [facility] ([id number]) [address] [facility], [address] [place] [address] Phosphoruson 05-18-2024 Phosphate [Mass/Vol] 5.6 mg/dL High 2.4 - 4 .9 mg/dL [facility] BASIC METABOLIC PANLon 05-17 Anion gap [Moles/Vol] 14 mmol/L Normal 5-15 [facility] Comment on above: Performed By: #### B MP, , 2776-03, FEPR, 2131-11, CBCA #### [facility] ([id number]) [address], [address] [place] [address] Calcium [Mass/Vol] 8.2 mg/dL Low 8.5-10.5 [facility] Comment on above: Performed By: #### B MP, , 2776-03, FEPR, 2131-11, CBCA #### [facility] ([id number]) [address], [address] [place] [address] Chloride [Moles/Vol] 95 mmol/L Low 98-109 [facility] Comment on above: Performed By: #### B MP, , 2776-03, FEPR, 2131-11, CBCA #### [facility] ([id number]) [address], [address] [place] [address] CO2 [Moles/Vol] 25 mmol/L Normal 22-32 [facility] Comment on above: Performed By: #### B MP, , 2776-03, FEPR, 2131-11, CBCA #### [facility] ([id number]) [address], [address] [place] [address] Creatinine [Mass/Vol] 6.97 mg/dL High 0.40-1.00 [facility] Comment on above: Result Comment: METH OD TRACEABLE TO IDMS STANDARD Performed By: #### B MP, , 2776-03, FEPR, 2131-11, CBCA #### [facility] ([id number]) [address] [address] [place] [address] GFR/1.73 sq M.predicted among non-blacks MDRD (S/P/Bld) [Vol rate/Area] 6 mL/min/{1.73_m2} Low >59 [facility] Comment on above: Result Comment: Reported eGFR is based on the CKD-EPI 2020 equation that does not use a race coefficient. Performed By: #### B MP, , 2776-03, FEPR, 2131-11, CBCA #### [facility] ([id number]) [address] [address] [place] [address] Glucose [Mass/Vol] 76 mg/dL Normal 65-99 [facility] Comment on above: Performed By: #### B JO ANN, , 2776-03, FEPR, 2131-11, CBCA #### [facility] ([id number]) [address] [address] [place] [address] Potassium [Moles/Vol] 5.1 mmol/L High 3.5-5.0 [facility] Comment on above: Performed By: #### B JO ANN, , 2776-03, FEPR, 2131-11, CBCA #### [facility] ([id number]) [address] [address] Sodium [Moles/Vol] 134 mmol/L Normal 134-146 [facility] Comment on above: Performed By: #### B MP, , 2776-03, FEPR, 2131-11, CBCA #### [facility] ([id number]) [address] [place] [address] Urea nitrogen [Mass/Vol] 70 mg/dL High 5-27 [facility] Comment on above: Performed By: #### B JO ANN, , 2776-03, FEPR, 2131-11, CBCA #### [facility] ([id number]) [address], [address] [place] [address] Basic Metabolic Panelon Anion gap [Moles/Vol] 14 mmol/L 5 - 15 mmol/L [facility] Calcium [Mass/Vol] 8.2 mg/dL Low 8.5 - 10. 5 mg/dL [facility] Chloride [Moles/Vol] 95 mmol/L Low 98 - 10 9 mmol/L [facility] CO2 [Moles/Vol] 25 mmol/L 22 - 32 mmol/L [facility] Creatinine [Mass/Vol] 6.97 mg/dL High 0.40 - 1.00 mg/dL [facility] Comment on above: METHOD TRACEABLE TO [facility] STANDARD eGFR (CKD-EPI)non-race dependent 6 Low - PINF [facility] Comment on above: Reported eGFR is based on the CKD-EPI 2020 equation that does not use a race coefficient. Glucose [Mass/Vol] 76 mg/dL 65 - 99 mg/dL [facility] Interpretation and review of laboratory results Abnormal [facility] Potassium [Moles/Vol] 5.1 mmol/L High 3.5 - 5.0 mmol/L [facility] Sodium [Moles/Vol] 134 mmol/L 134 - 146 mmol/L [facility] Urea nitrogen [Mass/Vol] 70 mg/dL High 5 - 27 mg/dL [facility] CBC AND AUTO DIFFon 05-18-19 ABSOLUTE BASOPHIL 0.1 X10E9/L Normal 0.0-0.2 [facility] Comment on above: Performed By: #### B MP, CBC #### [facility] ([id number]) [address], [address] [place] [address] ABSOLUTE NEUTROPHIL 8.8 X10E9/L High 1.5-6.6 [facility] Comment on above: Performed By: #### B MP, CBC #### [facility] ([id number]) [address], [address] [place] [address] Basophils/100 WBC (Bld) 0.5 % Normal [facility] Comment on above: Performed By: #### B MP, CBC #### [facility] ([id number]) [address] [place] [address] Eosinophils (Bld) [#/Vol] 0.4 10*3/uL Normal 0.0-0.4 [facility] Comment on above: Performed By: #### B MP, CBC #### [facility] ([id number]) [address] [address] [place] [address] Eosinophils/100 WBC (Bld) 3.4 % Normal [facility] Comment on above: Performed By: #### B MP, CBC #### [facility] ([id number]) [address] [address] [place] [address] Erythrocyte distribution width (RBC) [Ratio] 16.3 % High 11.5-15.0 [facility] Comment on above: Performed By: #### B MP, CBC #### [facility] ([id number]) [address] [place] [address] Hematocrit (Bld) [Volume fraction] 22.5 % Low 35-47 [facility] Comment on above: Performed By: #### B MP, CBC #### [facility] ([id number]) [address] [place] [address] Hemoglobin (Bld) [Mass/Vol] 7.6 g/dL Low 11.7-15.5 [facility] Comment on above: Performed By: #### B MP, CBC #### [facility] ([id number]) [address] [address] Lymphocytes (Bld) [#/Vol] 1.6 10*3/uL Normal 1.0-3.5 [facility] Comment on above: Performed By: #### B MP, CBC #### [facility] ([id number]) [address], [address] [place] [address] Lymphocytes/100 WBC (Bld) 13.1 % Normal [facility] Comment on above: Performed By: #### B MP, CBC #### [facility] ([id number]) [address], [address] [place] [address] MCH (RBC) [Entitic mass] 33.2 pg Normal 27-34 [facility] Comment on above: Performed By: #### B MP, CBC #### [facility] ([id number]) [address], [address] [place] [address] MCHC (RBC) [Mass/Vol] 34.0 g/dL Normal 32-36 [facility] Comment on above: Performed By: #### B MP, CBC #### [facility] ([id number]) [address], [address] [place] [address] MCV (RBC) [Entitic vol] 98 fL Normal 80-100 [facility] Comment on above: Performed By: #### B MP, CBC #### [facility] ([id number]) [address], [address] [place] [address] Monocytes (Bld) [#/Vol] 1.1 10*3/uL High 0-0.9 [facility] Comment on above: Performed By: #### B MP, CBC #### [facility] ([id number]) [address], [address] [place] [address] Monocytes/100 WBC (Bld) 8.9 % Normal [facility] Comment on above: Performed By: #### B MP, CBC #### [facility] ([id number]) [address], [address] [place] [address] MPV PLATELET CLUMPS PRECLUDE COUNT Normal 7-12 [facility] Comment on above: Performed By: #### B MP, CBC #### [facility] ([id number]) [address], [address] [place] [address] Neutrophils/100 WBC (Bld) 74.1 % Normal [facility] Comment on above: Performed By: #### B MP, CBC #### [facility] ([id number]) [address], [address] [address] PLATELET COUNT ESTIMATE OF PLATELETS, NORMAL Normal 150-450 [facility] Comment on above: Result Comment: PLAT ELET CLUMPS PRECLUDE COUNT Performed By: #### B MP, CBC #### [facility] ([id number]) [address], [address] [address] RBC COUNT 2.30 X10E12/L Low 3.80-5.20 [facility] Comment on above: Performed By: #### B MP, CBC #### [facility] ([id number]) [address], [address] [place] [address] WBC (Bld) [#/Vol] 11.9 10*3/uL High 4.0-11.0 [facility] Comment on above: Performed By: #### B MP, CBC #### [facility] ([id number]) [address], [address] [place] [address] CBC auto differentialon 030 Basophils (Bld) [#/Vol] 0.1 10*3/uL [facility] Basophils/100 WBC (Bld) 0.5 % [facility] Eosinophils (Bld) [#/Vol] 0.4 10*3/uL [facility] Eosinophils/100 WBC (Bld) 3.4 % [facility] Erythrocyte distribution width (RBC) [Ratio] 16.3 % High 11.5 - 15.0 % [facility] Hematocrit (Bld) [Volume fraction] 22.5 % Low 35 - 47 % [facility] Hemoglobin (Bld) [Mass/Vol] 7.6 g/dL Low 11.7 - 15.5 g/dL [facility] Interpretation and review of laboratory results Abnormal [facility] Lymphocytes (Bld) [#/Vol] 1.6 10*3/uL [facility] Lymphocytes/100 WBC (Bld) 13.1 % [facility] MCH (RBC) [Entitic mass] 33.2 pg 27 - [address] [facility] MCHC (RBC) [Mass/Vol] 34 g/dL 32 - 36 g/dL [facility] MCV (RBC) [Entitic vol] 98 fL 80 - 100 fL [facility] Monocytes (Bld) [#/Vol] 1.1 10*3/uL High [facility] Monocytes/100 WBC (Bld) 8.9 % [facility] Neutrophils (Bld) [#/Vol] 8.8 10*3/uL High [facility] Neutrophils/100 WBC (Bld) 74.1 % [facility] Platelet mean volume (Bld) [Entitic vol] PLATELET CLUMPS PRECLUDE COUNT 7 - [address] [facility] Platelets (Bld) [#/Vol] ESTIMATE OF PLATELETS, NORMAL [facility] Comment on above: PLATELET CLUMPS PREC LUDE COUNT RBC (Bld) [#/Vol] 2.3 10*6/uL Low [facility] WBC corrected for nucl RBC Auto (Bld) [#/Vol] 11.9 High [facility] Cobalamin (Vitamin B12) [Mas s/Vol]on 05-17-2024 [facility] ECG 12 leadon 05-17-2024 TRACEMASTERVUE [facility] FERRITINon 05-17-2024 Ferritin [Mass/Vol] 2188 ng/mL High 11-307 [facility] Comment on above: Performed By: #### B MP, CBC #### [facility] ([id number]) [address] [facility], [address] [place] [address] Ferritinon 05-17-2024 Ferritin [Mass/Vol] 2188 ng/mL High 11 - 307 ng/mL [facility] Ferritin [Mass/Vol]on 2024 Interpretation and review of laboratory results Abnormal [facility] Folateon 05-17-2024 Folate [Mass/Vol] ng/mL 5.8 - PINF ng/mL [facility] Comment on above: NEW REFERENCE RANGE Folate [Mass/Vol]on 05-18-19 25 [facility] FOLIC ACID >25.0 Normal >5.8 [facility] Comment on above: Result Comment: NEW REFERENCE RANGE Performed By: #### B MP, CBC #### [facility] ([id number]) [address] [place] [address] Glucose Glucometer (BldC) [M ass/Vol]on 05-17-2024 Glucose [Mass/Vol] 83 mg/dL 65 - 99 mg/dL [facility] Glucose [Mass/Vol] 83 mg/dL Normal 65-99 [facility] IRON PROFILEon 05-17-2024 Iron [Mass/Vol] 84 ug/dL Normal 50-170 [facility] Comment on above: Performed By: #### B MP, CBC #### [facility] ([id number]) [address] [place] [address] IRON BINDING 241 ug/dL Low 250-425 [facility] Comment on above: Performed By: #### Greg CHERRY, CBC #### [facility] ([id number]) [address] [place] [address] IRON SATURATION 35 % SATURATION Normal 15-50 [facility] Comment on above: Performed By: #### B MP, CBC #### [facility] ([id number]) [address] [place] [address] Iron and TIBCon 05-17-2024 Interpretation and review of laboratory results Abnormal [facility] Iron [Mass/Vol] 84 ug/dL 50 - 170 ug/dL [facility] Iron binding capacity [Mass/Vol] 241 ug/dL Low 250 - 425 ug/dL [facility] Iron saturation [Mass fraction] 35 [facility] Lactate (P feliz) [Moles/Vol]o n 05-17-2024 [facility] LACTATE W/REFLEX 0.9 mmol/L Normal 0.4-2.0 [facility] Comment on above: Result Comment: Result did not trigger repeat Lactate, re-order if needed. Performed By: #### B JO ANN, CBC #### [facility] ([id number]) [address], [address] [place] [address] Lactate w/ Reflexon 05-18-19 25 Lactate (P feliz) [Moles/Vol] 0.9 mmol/L 0.4 - 2.0 mmol/L [facility] Comment on above: Result did not trigger repeat Lactate, re-order if needed. MAGNESIUMon 05-17-2024 Magnesium [Mass/Vol] 2.4 mg/dL Normal 1.8-2.6 [facility] Comment on above: Performed By: #### B JO ANN, CBC #### [facility] ([id number]) [address], [address] [place] [address] Magnesium [Mass/Vol] 1.8 mg/dL Normal 1.8-2.6 [facility] Comment on above: Performed By: #### [place], [address]-9, 2777-1, FEPR, 2131-9, CBCA #### [facility] ([id number]) [address], [address] [place] [address] Magnesiumon 05-17-2024 Magnesium [Mass/Vol] 1.8 mg/dL 1.8 - 2 .6 mg/dL [facility] Natriuretic peptide B [Mass/ Vol]on 05-17-2024 Interpretation and review of laboratory results Abnormal [facility] Natriuretic peptide B (Bld) [Mass/Vol] 129 pg/mL High NINF - 100.0 pg/mL [facility] Natriuretic peptide B (Bld) [Mass/Vol] 129 pg/mL High <100.0 [facility] Comment on above: Performed By: #### B JO ANN, CBC #### [facility] ([id number]) [address] [facility] [place] [address] No Panel Informationon 05-17 [facility] PHOSPHORUSon 05-17-2024 Phosphate [Mass/Vol] 4.6 mg/dL Normal 2.4-4.9 [facility] Comment on above: Performed By: #### [place], [address]-7, 2777-1, FEPR, 2131-9, CBCA #### [facility] ([id number]) [address] [facility] [place] [address] Phosphoruson 05-17-2024 Phosphate [Mass/Vol] 4.6 mg/dL 2.4 - 4 .9 mg/dL [facility] Procalcitoninon 05-17-2024 Procalcitonin IA [Mass/Vol] 0.7 ng/mL High NINF - 0.05 ng/mL [facility] Comment on above: NOTE <0.50 ng/mL - Low risk of severe sepsis and/or septic shock. <2.00 ng/mL - Recommend retesting within 6-24 hours. >2.00 ng/mL - High risk of sepsis and/or septic shock. Procalcitonin IA [Mass/Vol]o n 05-17-2024 Interpretation and review of laboratory results Abnormal [facility] PROCALCITONIN 0.70 ng/mL High <0.05 [facility] Comment on above: Result Comment: NOTE <0.50 ng/mL - Low risk of severe sepsis and/or septic shock. <2.00 ng/mL - Recommend retesting within 6-24 hours. >2.00 ng/mL - High risk of sepsis and/or septic shock. Performed By: #### B MP, CBC #### [facility] ([id number]) [address] [facility], [address] [place] [address] VITAMIN B12on 05-17-2024 Cobalamin (Vitamin B12) [Mass/Vol] 788 pg/mL Normal 180-914 [facility] Comment on above: Performed By: #### B MP, CBC #### [facility] ([id number]) [address] [facility], [address] [place] [address] Vitamin B12on 05-17-2024 Cobalamin (Vitamin B12) [Mass/Vol] 788 pg/mL 180 - 914 pg/mL [facility] CBC AND AUTO DIFFon 05-17-19 25 ABSOLUTE BASOPHIL 0.0 X10E9/L Normal 0.0-0.2 [facility] Comment on above: Performed By: #### Trini SMITH CMP, 52059-7 #### [facility] ([id number]) [address] [place] [address] ABSOLUTE NEUTROPHIL 11.2 X10E9/L High 1.5-6.6 [facility] Comment on above: Performed By: #### Trini SMITH CMP, 42278-3 #### [facility] ([id number]) [address] [place] [address] Basophils/100 WBC (Bld) 0.1 % Normal [facility] Comment on above: Performed By: #### Trini SMITH [facility], 00809-3 #### [facility] ([id number]) [address] [place] [address] Eosinophils (Bld) [#/Vol] 0.3 10*3/uL Normal 0.0-0.4 [facility] Comment on above: Performed By: #### Trini SMITH CMP, 59333-8 #### [facility] ([id number]) [address] [place] [address] Eosinophils/100 WBC (Bld) 2.6 % Normal [facility] Comment on above: Performed By: #### Trini SMITH CMP, 01565-8 #### [facility] ([id number]) [address] [place] [address] Erythrocyte distribution width (RBC) [Ratio] 16.5 % High 11.5-15.0 [facility] Comment on above: Performed By: #### Trini SMITH CMP, 18928-6 #### [facility] ([id number]) [address] [place] [address] Hematocrit (Bld) [Volume fraction] 21.9 % Low 35-47 [facility] Comment on above: Performed By: #### Trini SMITH CMP, 08667-3 #### [facility] ([id number]) [address] [place] [address] Hemoglobin (Bld) [Mass/Vol] 7.3 g/dL Low 11.7-15.5 [facility] Comment on above: Performed By: #### Trini SMITH CMP, 48347-2 #### [facility] ([id number]) [address] [place] [address] Lymphocytes (Bld) [#/Vol] 0.8 10*3/uL Low 1.0-3.5 [facility] Comment on above: Performed By: #### Trini SMITH CMP, 09070-1 #### [facility] ([id number]) [address] [place] [address] Lymphocytes/100 WBC (Bld) 6.1 % Normal [facility] Comment on above: Performed By: #### Trini SMITH CMP, 91494-5 #### [facility] ([id number]) [address] [place] [address] MCH (RBC) [Entitic mass] 33.2 pg Normal 27-34 [facility] Comment on above: Performed By: #### Trini SMITH CMP, 22010-9 #### [facility] ([id number]) [address] [place] [address] MCHC (RBC) [Mass/Vol] 33.5 g/dL Normal 32-36 [facility] Comment on above: Performed By: #### Trini SMITH CMP, 01725-7 #### [facility] ([id number]) [address] [place] [address] MCV (RBC) [Entitic vol] 99 fL Normal 80-100 [facility] Comment on above: Performed By: #### Trini SMITH, CMP, 99830-4 #### [facility] ([id number]) [address] [place] [address] Monocytes (Bld) [#/Vol] 0.7 10*3/uL Normal 0-0.9 [facility] Comment on above: Performed By: #### Trini SMITH [facility], 24786-3 #### [facility] ([id number]) [address] [place] [address] Monocytes/100 WBC (Bld) 5.1 % Normal [facility] Comment on above: Performed By: #### Trini SMITH [facility], 29964-1 #### [facility] ([id number]) [address] [place] [address] Neutrophils/100 WBC (Bld) 86.1 % Normal [facility] Comment on above: Performed By: #### Trini SMITH, [facility], 59354-0 #### [facility] ([id number]) [address] [place] [address] Platelet mean volume (Bld) [Entitic vol] 8.9 fL Normal 7-12 [facility] Comment on above: Performed By: #### Trini SMITH, CMP, 50779-5 #### [facility] ([id number]) [address] [place] [address] Platelets (Bld) [#/Vol] 154 10*3/uL Normal 150-450 [facility] Comment on above: Performed By: #### Trini SMITH, CMP, 58457-9 #### [facility] [facility] ([id number]) [address] [place] [address] 56371 RBC COUNT 2.21 X10E12/L Low 3.80-5.20 [facility] Comment on above: Performed By: #### Trini SMITH [facility], 08872-3 #### [facility] ([id number]) [address] [place] [address] 09747 WBC (Bld) [#/Vol] 13.0 10*3/uL High 4.0-11.0 [facility] Comment on above: Performed By: #### Trini SMITH [facility], 35991-0 #### [facility] ([id number]) [address] [place] [address] 88528 ABSOLUTE NEUTROPHIL 9.9 X10E9/L High 1.5-6.6 [facility] Comment on above: Performed By: #### Trini SMITH [facility], 86776-5 #### [facility] ([id number]) [address] [place] [address] 69761 Eosinophils (Bld) [#/Vol] 0.4 10*3/uL Normal 0.0-0.4 [facility] Comment on above: Performed By: #### Trini SMITH [facility], 70294-5 #### [facility] ([id number]) [address] [place] [address] 33145 Eosinophils/100 WBC (Bld) 3.0 % Normal [facility] Comment on above: Performed By: #### Trini SMITH [facility], 88927-8 #### [facility] ([id number]) [address] [place] [address] 90524 Erythrocyte distribution width (RBC) [Ratio] 16.4 % High 11.5-15.0 [facility] Comment on above: Performed By: #### Trini SMITH [facility], 18242-7 #### [facility] ([id number]) [address] [place] [address] 07533 Hematocrit (Bld) [Volume fraction] 18.8 % Low 35-47 [facility] Comment on above: Performed By: #### Trini SMITH CMP, 45039-7 #### [facility] ([id number]) [address] [place] [address] 67789 Hemoglobin (Bld) [Mass/Vol] 6.4 g/dL Critically low 11.7-15.5 [facility] Comment on above: Performed By: #### Trini SMITH CMP, 51452-9 #### [facility] ([id number]) [address] [place] [address] 82434 Lymphocytes (Bld) [#/Vol] 0.9 10*3/uL Low 1.0-3.5 [facility] Comment on above: Performed By: #### Trini SMITH CMP, 96819-9 #### [facility] ([id number]) [address] [place] [address] 88453 Lymphocytes/100 WBC (Bld) 7.3 % Normal [facility] Comment on above: Performed By: #### Trini SMITH CMP, 64088-6 #### [facility] ([id number]) [address] [place] [address] 44492 MCH (RBC) [Entitic mass] 33.6 pg Normal 27-34 [facility] Comment on above: Performed By: #### Trini SMITH CMP, 55175-5 #### [facility] ([id number]) [address] [place] [address] 25371 MCHC (RBC) [Mass/Vol] 33.9 g/dL Normal 32-36 [facility] Comment on above: Performed By: #### Trini SMITH CMP, 67679-4 #### [facility] ([id number]) [address] [place] [address] 01609 Monocytes (Bld) [#/Vol] 0.9 10*3/uL Normal 0-0.9 [facility] Comment on above: Performed By: #### Trini SMITH [facility], 31941-7 #### [facility] ([id number]) [address] [place] [address] 65562 Monocytes/100 WBC (Bld) 7.5 % Normal [facility] Comment on above: Performed By: #### Trini SMITH [facility], 47236-8 #### [facility] ([id number]) [address] [place] [address] 79085 Neutrophils/100 WBC (Bld) 82.1 % Normal [facility] Comment on above: Performed By: #### Trini SMITH [facility], 02604-9 #### [facility] ([id number]) [address] [place] [address] 63232 Platelet mean volume (Bld) [Entitic vol] 8.8 fL Normal 7-12 [facility] Comment on above: Performed By: #### Trini SMITH [facility], 81487-6 #### [facility] ([id number]) [address] [place] [address] 71825 Platelets (Bld) [#/Vol] 140 10*3/uL Low 150-450 [facility] Comment on above: Performed By: #### Trini SMITH [facility], 00518-2 #### [facility] ([id number]) [address] [place] [address] 18610 RBC COUNT 1.90 X10E12/L Low 3.80-5.20 [facility] Comment on above: Performed By: #### Trini SMITH [facility], 76331-7 #### [facility] ([id number]) [address] [place] [address] 24202 WBC (Bld) [#/Vol] 12.1 10*3/uL High 4.0-11.0 [facility] Comment on above: Performed By: #### C BCA, CMP, 03404-1 #### [facility] ([id number]) [address] [place] [address] 48929 COMPREHENSIVE METABOLIC PANE Evens 05-16-2024 Albumin [Mass/Vol] 2.6 g/dL Low 3.2-5.3 [facility] Comment on above: Performed By: #### C BCA, CMP, 90706-5 #### [facility] ([id number]) [address] [place] [address] 14832 ALP [Catalytic activity/Vol] 66 U/L Normal 39-130 [facility] Comment on above: Performed By: #### C BCA, CMP, 90351-9 #### [facility] ([id number]) [address] [place] [address] 67135 ALT [Catalytic activity/Vol] 22 U/L Normal 0-31 [facility] Comment on above: Performed By: #### C BCA, CMP, 32129-1 #### [facility] ([id number]) [address] [place] [address] 20653 Anion gap [Moles/Vol] 14 mmol/L Normal 5-15 [facility] Comment on above: Performed By: #### C BCA, CMP, 57183-0 #### [facility] ([id number]) [address] [place] [address] 53407 AST [Catalytic activity/Vol] 25 U/L Normal 0-41 [facility] Comment on above: Performed By: #### C BCA, CMP, 41850-6 #### [facility] ([id number]) [address] [place] [address] 37003 Bilirubin [Mass/Vol] 1.0 mg/dL Normal 0.3-1.2 [facility] Comment on above: Performed By: #### C BCA, CMP, 52317-3 #### [facility] ([id number]) [address] [place] [address] 56807 Calcium [Mass/Vol] 7.8 mg/dL Low 8.5-10.5 [facility] Comment on above: Performed By: #### C LEE SMITH, 77724-8 #### [facility] ([id number]) [address] [place] [address] 54013 Chloride [Moles/Vol] 94 mmol/L Low 98-109 [facility] Comment on above: Performed By: #### C LEE SMITH, 72215-9 #### [facility] ([id number]) [address] [place] [address] 12434 CO2 [Moles/Vol] 24 mmol/L Normal 22-32 [facility] Comment on above: Performed By: #### C LUIS [facility], 51962-6 #### [facility] ([id number]) [address] [place] [address] 84868 Creatinine [Mass/Vol] 6.33 mg/dL High 0.40-1.00 [facility] Comment on above: Result Comment: METH OD TRACEABLE TO IDMS STANDARD Performed By: #### C LEE SMITH, 58526-8 #### [facility] ([id number]) [address] [place] [address] 35419 GFR/1.73 sq M.predicted among non-blacks MDRD (S/P/Bld) [Vol rate/Area] 7 mL/min/{1.73_m2} Low >59 [facility] Comment on above: Result Comment: Reported eGFR is based on the CKD-EPI 1 equation that does not use a race coefficient. Performed By: #### C LEE SMITH, 25102-4 #### [facility] ([id number]) [address] [place] [address] 77986 Glucose [Mass/Vol] 89 mg/dL Normal 65-99 [facility] Comment on above: Performed By: #### C BCA, CMP, 91155-9 #### [facility] ([id number]) [address] [place] [address] 68293 Potassium [Moles/Vol] 5.4 mmol/L High 3.5-5.0 [facility] Comment on above: Performed By: #### C BCA, CMP, 35006-8 #### [facility] ([id number]) [address] [place] [address] 70933 Protein [Mass/Vol] 5.9 g/dL Low 6.0-8.0 [facility] Comment on above: Performed By: #### C BCA, CMP, 29992-7 #### [facility] ([id number]) [address] [place] [address] 62286 Sodium [Moles/Vol] 132 mmol/L Low 134-146 [facility] Comment on above: Performed By: #### C BCA, CMP, 03811-6 #### [facility] ([id number]) [address] [place] [address] 38473 Urea nitrogen [Mass/Vol] 67 mg/dL High 5-27 [facility] Comment on above: Performed By: #### C BCA, CMP, 72308-1 #### [facility] ([id number]) [address] [place] [address] 70700 Albumin [Mass/Vol] 2.2 g/dL Low 3.2-5.3 [facility] Comment on above: Performed By: #### C BCA, CMP, 32154-8 #### [facility] ([id number]) [address] [place] [address] 99178 ALP [Catalytic activity/Vol] 56 U/L Normal 39-130 [facility] Comment on above: Performed By: #### C BCA, CMP, 81959-9 #### [facility] ([id number]) [address] [place] [address] 22030 ALT [Catalytic activity/Vol] 21 U/L Normal 0-31 [facility] Comment on above: Performed By: #### C BCA, CMP, 10648-8 #### [facility] ([id number]) [address] [place] [address] 11532 Anion gap [Moles/Vol] 12 mmol/L Normal 5-15 [facility] Comment on above: Performed By: #### C BCA, CMP, 90112-4 #### [facility] ([id number]) [address] [place] [address] 85206 AST [Catalytic activity/Vol] 21 U/L Normal 0-41 [facility] Comment on above: Performed By: #### C LUIS, CMP, 42387-7 #### [facility] ([id number]) [address] [place] [address] 61652 Calcium [Mass/Vol] 7.4 mg/dL Low 8.5-10.5 [facility] Comment on above: Performed By: #### C LUIS, CMP, 26156-4 #### [facility] ([id number]) [address] [place] [address] 92809 Chloride [Moles/Vol] 96 mmol/L Low 98-109 [facility] Comment on above: Performed By: #### C BCA, CMP, 27618-1 #### [facility] ([id number]) [address] [place] [address] 97266 CO2 [Moles/Vol] 25 mmol/L Normal 22-32 [facility] Comment on above: Performed By: #### C BCA, CMP, 49257-1 #### [facility] ([id number]) [address] [place] [address] 61574 Creatinine [Mass/Vol] 6.10 mg/dL High 0.40-1.00 [facility] Comment on above: Result Comment: METH OD TRACEABLE TO IDMS STANDARD Performed By: #### C LEE SMITH, 77689-0 #### [facility] ([id number]) [address] [place] [address] 58299 Potassium [Moles/Vol] 4.9 mmol/L Normal 3.5-5.0 [facility] Comment on above: Performed By: #### C LEE SMITH, 45217-5 #### [facility] ([id number]) [address] [place] [address] 51043 Protein [Mass/Vol] 5.2 g/dL Low 6.0-8.0 [facility] Comment on above: Performed By: #### C LEE SMITH, 93061-4 #### [facility] ([id number]) [address] [place] [address] 97018 Sodium [Moles/Vol] 133 mmol/L Low 134-146 [facility] Comment on above: Performed By: #### Trini SMITH [facility], 48273-4 #### [facility] ([id number]) [address] [place] [address] 98446 Urea nitrogen [Mass/Vol] 68 mg/dL High 5-27 [facility] Comment on above: Performed By: #### Trini SMITH CMP, 21043-3 #### [facility] ([id number]) [address] [place] [address] 52633 Vancomycin [Mass/Vol]on VANCOMYCIN 22.4 ug/mL Normal 5.0-40.0 [facility] Comment on above: Result Comment: Peak 30-40 ug/mL Trough 5-20 ug/ml Performed By: #### C BCA, CMP, 74565-5 #### [facility] ([id number]) [address] [place] [address] 90261 BLOOD CULTUREon 05-15-2024 Bacteria identified Aer cx Nom (Bld) SPECIMEN NOTES right wrist CULTURE RESULTS NO GROWTH 5 DAYS Normal [facility] Comment on above: Performed By: #### Trini SMITH CMP, 22665-9 #### [facility] ([id number]) [address] [place] [address] 48757 Bacteria identified Aer cx Nom (Bld) SPECIMEN NOTES right hand CULTURE RESULTS NO GROWTH 5 DAYS Normal [facility] Comment on above: Performed By: #### Trini SMITH CMP, 53055-6 #### [facility] ([id number]) [address] [place] [address] 77753 CBC AND AUTO DIFFon 05-16-19 25 ABSOLUTE BASOPHIL 0.0 X10E9/L Normal 0.0-0.2 [facility] Comment on above: Performed By: #### Trini SMITH CMP, 23249-3 #### [facility] ([id number]) [address] [place] [address] 72442 ABSOLUTE NEUTROPHIL 12.6 X10E9/L High 1.5-6.6 [facility] Comment on above: Performed By: #### Trini SMITH CMP, 13810-7 #### [facility] ([id number]) [address] [place] [address] 21892 Basophils/100 WBC (Bld) 0.1 % Normal [facility] Comment on above: Performed By: #### Trini SMITH CMP, 15379-9 #### [facility] ([id number]) [address] [place] [address] 26120 Eosinophils (Bld) [#/Vol] 0.3 10*3/uL Normal 0.0-0.4 [facility] Comment on above: Performed By: #### Trini SMITH CMP, 47130-7 #### [facility] ([id number]) [address] [place] [address] 06175 Eosinophils/100 WBC (Bld) 2.0 % Normal [facility] Comment on above: Performed By: #### Trini SMITH CMP, 81686-9 #### [facility] ([id number]) [address] [place] [address] 89316 Erythrocyte distribution width (RBC) [Ratio] 16.4 % High 11.5-15.0 [facility] Comment on above: Performed By: #### Trini SMITH CMP, 29453-8 #### [facility] ([id number]) [address] [place] [address] 54046 Hematocrit (Bld) [Volume fraction] 22.5 % Low 35-47 [facility] Comment on above: Performed By: #### Trini SMITH CMP, 33644-2 #### [facility] ([id number]) [address] [place] [address] 07463 Hemoglobin (Bld) [Mass/Vol] 7.6 g/dL Low 11.7-15.5 [facility] Comment on above: Performed By: #### Trini SMITH CMP, 22058-2 #### [facility] ([id number]) [address] [place] [address] 88001 Lymphocytes (Bld) [#/Vol] 0.9 10*3/uL Low 1.0-3.5 [facility] Comment on above: Performed By: #### Trini SMITH CMP, 16641-2 #### [facility] ([id number]) [address] [place] [address] 29994 Lymphocytes/100 WBC (Bld) 6.3 % Normal [facility] Comment on above: Performed By: #### Trini SMITH CMP, 98189-7 #### [facility] ([id number]) [address] [place] [address] 59304 MCH (RBC) [Entitic mass] 33.4 pg Normal 27-34 [facility] Comment on above: Performed By: #### Trini SMITH CMP, 38464-9 #### [facility] ([id number]) [address] [place] [address] 93387 MCHC (RBC) [Mass/Vol] 33.8 g/dL Normal 32-36 [facility] Comment on above: Performed By: #### Trini SMITH CMP, 77516-2 #### [facility] ([id number]) [address] [place] [address] 22750 MCV (RBC) [Entitic vol] 99 fL Normal 80-100 [facility] Comment on above: Performed By: #### Trini SMITH CMP, 39290-1 #### [facility] ([id number]) [address] [place] [address] 41069 Monocytes (Bld) [#/Vol] 0.9 10*3/uL Normal 0-0.9 [facility] Comment on above: Performed By: #### Trini SMITH CMP, 04810-4 #### [facility] ([id number]) [address] [place] [address] 83168 Monocytes/100 WBC (Bld) 5.8 % Normal [facility] Comment on above: Performed By: #### Trini SMITH CMP, 82264-0 #### [facility] ([id number]) [address] [place] [address] 05776 Neutrophils/100 WBC (Bld) 85.8 % Normal [facility] Comment on above: Performed By: #### Trini SMITH CMP, 79200-5 #### [facility] ([id number]) [address] [place] [address] Platelet mean volume (Bld) [Entitic vol] 9.0 fL Normal 7-12 [facility] Comment on above: Performed By: #### C LUIS CMP, 57329-5 #### [facility] ([id number]) [address] [place] [address] 12879 Platelets (Bld) [#/Vol] 153 10*3/uL Normal 150-450 [facility] Comment on above: Performed By: #### C LUIS, CMP, 07919-8 #### [facility] ([id number]) [address] [place] [address] 49541 RBC COUNT 2.28 X10E12/L Low 3.80-5.20 [facility] Comment on above: Performed By: #### C LUIS, CMP, 94116-2 #### [facility] ([id number]) [address] [place] [address] 27157 WBC (Bld) [#/Vol] 14.7 10*3/uL High 4.0-11.0 [facility] Comment on above: Performed By: #### Trini SMITH, CMP, 77556-9 #### [facility] ([id number]) [address] [place] [address] 14163 COMPREHENSIVE METABOLIC PANE Evens 05-15-2024 Albumin [Mass/Vol] 2.8 g/dL Low 3.2-5.3 [facility] Comment on above: Performed By: #### C BCA, CMP, 95701-8 #### [facility] ([id number]) [address] [place] [address] 37440 ALP [Catalytic activity/Vol] 65 U/L Normal 39-130 [facility] Comment on above: Performed By: #### Trini BCA, CMP, 97537-6 #### [facility] ([id number]) [address] [place] [address] 20189 ALT [Catalytic activity/Vol] 24 U/L Normal 0-31 [facility] Comment on above: Performed By: #### C LUIS, CMP, 78999-6 #### [facility] ([id number]) [address] [place] [address] 09154 Anion gap [Moles/Vol] 10 mmol/L Normal 5-15 [facility] Comment on above: Performed By: #### C LUIS, CMP, 65304-7 #### [facility] ([id number]) [address] [place] [address] 45654 AST [Catalytic activity/Vol] 26 U/L Normal 0-41 [facility] Comment on above: Performed By: #### C LUIS CMP, 57342-6 #### [facility] ([id number]) [address] [place] [address] 73561 Bilirubin [Mass/Vol] 0.9 mg/dL Normal 0.3-1.2 [facility] Comment on above: Performed By: #### C LUIS, CMP, 01684-5 #### [facility] ([id number]) [address] [place] [address] 90655 Calcium [Mass/Vol] 7.8 mg/dL Low 8.5-10.5 [facility] Comment on above: Performed By: #### C LUIS, CMP, 92069-7 #### [facility] ([id number]) [address] [place] [address] 92713 Chloride [Moles/Vol] 93 mmol/L Low 98-109 [facility] Comment on above: Performed By: #### C BCA, CMP, 11853-0 #### [facility] ([id number]) [address] [place] [address] 42397 CO2 [Moles/Vol] 28 mmol/L Normal 22-32 [facility] Comment on above: Performed By: #### C BCA, CMP, 57286-0 #### [facility] ([id number]) [address] [place] [address] 20032 Creatinine [Mass/Vol] 6.27 mg/dL High 0.40-1.00 [facility] Comment on above: Result Comment: METH OD TRACEABLE TO IDMS STANDARD Performed By: #### C LEE SMITH, 57298-1 #### [facility] ([id number]) [address] [place] [address] 38786 GFR/1.73 sq M.predicted among non-blacks MDRD (S/P/Bld) [Vol rate/Area] 7 mL/min/{1.73_m2} Low >59 [facility] Comment on above: Result Comment: Reported eGFR is based on the CKD-EPI 2020 equation that does not use a race coefficient. Performed By: #### C LEE SMITH, 63760-1 #### [facility] ([id number]) [address] [place] [address] 45824 Glucose [Mass/Vol] 111 mg/dL High 65-99 [facility] Comment on above: Performed By: #### C LUIS [facility], 03714-0 #### [facility] ([id number]) [address] [place] [address] 07075 Potassium [Moles/Vol] 5.0 mmol/L Normal 3.5-5.0 [facility] Comment on above: Performed By: #### C LEE SMITH, 81725-8 #### [facility] ([id number]) [address] [place] [address] 84028 Protein [Mass/Vol] 6.3 g/dL Normal 6.0-8.0 [facility] Comment on above: Performed By: #### C LEE SMITH, 86992-7 #### [facility] ([id number]) [address] [place] [address] 52271 Sodium [Moles/Vol] 131 mmol/L Low 134-146 [facility] Comment on above: Performed By: #### C LEE SMITH, 77985-0 #### [facility] ([id number]) [address] [place] [address], [place] [address] Urea nitrogen [Mass/Vol] 62 mg/dL High 5-27 [facility] Comment on above: Performed By: #### C LEE SMITH, 45364-3 #### [facility] ([id number]) [address] [place] [address], [place] [address] CT BRAIN WO CONTon CT BRAIN WO CONT CT BRAIN WO CONT HISTORY: A 63-year-old female with the history of the altered mental status. EXAM/TECHNIQUE: Multidetector spiral CT scan of brain is performed. Multiplanar reconstruction images are reformatted. All CT scans at this facility use dose modulation, iterative reconstruction, and/or weight based dosing when appropriate to reduce radiation dose to as low as reasonably achievable. COMPARISON: None available. FINDINGS: There is generalize cortical atrophy. Ventricular system is normal in size and configuration for the patient's age and generalized atrophy. There are vague hypodense regions in the deep white matter supratentorially consistent with small vessels ischemic change. There is no evidence of intracranial hemorrhage or acute pathology. The cerebellum and brainstem are unremarkable. No mass effect, midline shift of the structures or extra-axial fluid collections are noted. The calvarium is intact. Mucosal thickening is seen in the paranasal sinuses consistent with chronic sinusitis. Mastoid air cells are clear. IMPRESSION: * No evidence of intracranial hemorrhage or acute pathology. * Small vessels ischemic change in the deep white matter supratentorially and generalized atrophy. * Chronic paranasal sinusitis. Finalized by Jose C Stock MD on 05/15/2024 5:08 PM Normal [facility] Lactate (P feliz) [Moles/Vol]o n 05-15-2024 Lactate [Moles/Vol] 1.4 mmol/L Normal 0.4-2.0 [facility] Comment on above: Performed By: #### C LEE SMITH, 31817-4 #### [facility] ([id number]) [address], [place] [address] LACTATE W/REFLEX 2.1 mmol/L High 0.4-2.0 [facility] Comment on above: Performed By: #### 3 2133-1 #### [facility] ([id number]) [address], [place] [address] SARS/FLU A+B/RSV by NAAT/Mol ecularon 05-15-2024 SARS/FLU A+B/RSV by NAAT/Molecular FLU A PCR Negative (qualifier value) FLU B PCR Negative (qualifier value) RSV by PCR Negative (qualifier value) SARS CoV 2 Not detected (qualifier value) NOTE The Xpert Xpress SARS-CoV-2/Flu/RSV Plus test is a rapid, multiplexed real-time RT-PCR test intended for the simultaneous qualitative detection and differentiation of SARS-CoV-2, influenza A, influenza B and respiratory syncytial virus (RSV) viral RNA from individuals suspected of respiratory viral infection consistent with COVID-19 by their healthcare provider. This test has not been validated in asymptomatic patients. The Xpert Xpress SARS-CoV-2 test is intended for use by qualified and trained operators who are performing tests using either [employer] DX or [employer] systems and is limited to laboratories that meet the CLIA requirements to perform high and moderate complexity tests. The Xpert Xpress SARS-CoV-2/Flu/RSV Plus is only for use under the Food and Drug Administration's Emergency Use Authorization. Results are for the simultaneous detection and differentiation of SARS-CoV-2, influenza A, influenza B and RSV nucleic acids in clinical specimens. SARS-CoV-2, influenza A, influenza B and RSV RNA identified by this test are generally detectable in upper respiratory samples during the acute phase of infection. Positive results are indicative of the presence of the identified virus, but do not rule out bacterial infection or co-infection with other pathogens not detected by this test. Clinical correlation with patient history and other diagnostic information is necessary to determine patient infection status. The agent detected may not be the definite cause of disease. Negative results do not preclude SARS-CoV-2, influenza A, influenza B and RSV infection and should not be used as the sole basis for treatment or other patient management decisions. Negative results must be combined with clinical observations, patient history and epidemiological information. An Invalid result may occur with specimen-associated inhibition unable to be resolved with specimen repeat. Fact Sheet for Healthcare Providers: https://www.fda.gov/ media/350827/downloa d Fact Sheet for Patients: https://www.fda.gov/ media/897558/downloa d Normal [facility] Comment on above: Performed By: #### C OVFLR #### [facility] ([id number]) [address] [place] [address] SUPERFICIAL WOUND CULTUREon 05-15-2024 Bacteria identified Aer cx Nom (Wound) GRAM STAIN 0 to 1 WHITE BLOOD CELLS/LPF 10 to 24 SQUAMOUS EPITHELIAL CELLS/LPF MODERATE GRAM POSITIVE COCCI IN PAIRS AND CHAINS FEW GRAM POSITIVE COCCI IN CLUSTERS CULTURE RESULTS MANY STAPHYLOCOCCUS AUREUS METHICILLIN RESISTANT MANY STREPTOCOCCUS AGALACTIAE (GROUP B) RARE STAPHYLOCOCCUS AUREUS METHICILLIN RESISTANT ALONG WITH RARE MIXED GRAM NEGATIVE ORGANISMS : NO PSEUDOMONAS AERUGINOSA ISOLATED ALONG WITH RARE NORMAL SKIN MONI [ S = SUSCEPTIBLE R = RESISTANT I = INTERMEDIATE S-DO = Susceptible-dose dependent NS = Non-suscceptible NO = No Interpretation ] Organism: STAPHYLOCOCCUS AUREUS Antibiotic Interpretation EVAN Status CEFAZOLIN R F CLINDAMYCIN S 0.25 F OXACILLIN R >=4 F TRIMETH/SULFAMETHOXA ZOLE S <=.5/9.5 F VANCOMYCIN S <=0.5 F DAPTOMYCIN S 0.25 F DOXYCYCLINE S 2 F [ S = SUSCEPTIBLE R = RESISTANT I = INTERMEDIATE S-DO = Susceptible-dose dependent NS = Non-suscceptible NO = No Interpretation ] Organism: STAPHYLOCOCCUS AUREUS Antibiotic Interpretation EVAN Status CEFAZOLIN R F CLINDAMYCIN R <=0.12 F INDUCIBLE RESISTANCE TO CLINDAMYCIN DETECTED OXACILLIN R >=4 F TRIMETH/SULFAMETHOXA ZOLE R >=16/304 F VANCOMYCIN S 1 F DAPTOMYCIN S 0.25 F DOXYCYCLINE R >=16 F Resistant [facility] Comment on above: Performed By: #### C BCA, [facility], 51625-1 #### [facility] ([id number]) [address] [place] [address]293 Troponin I.cardiac High sens itivity method [Mass/Vol]on 05-15-2024 1 HOUR TROP I, HIGH SENSITIVITY 7 ng/L Normal <16 [facility] Comment on above: Performed By: #### 8 [id number] #### [facility] ([id number]) [address] [place] [address] TROPONIN I, HIGH SENSITIVITY 7 ng/L Normal <16 [facility] Comment on above: Performed By: #### C BCA, CMP, 77056-1 #### [facility] ([id number]) [address] [place] [address] 07789 URINE CULTUREon 05-15-2024 Bacteria identified Cx Nom (U) SPECIMEN NOTES URINE RECEIVED WITHOUT PRESERVATIVE CULTURE RESULTS >100,000 ORGANISMS/mL PROTEUS MIRABILIS >100,000 ORGANISMS/mL ESCHERICHIA COLI URINE RECEIVED WITHOUT PRESERVATIVE-DELAYS IN TRANSPORT MAY AFFECT RESULTS.INTERPRET WITH CAUTION AND CLINICAL CORRELATION IS RECOMMENDED. [ S = SUSCEPTIBLE R = RESISTANT I = INTERMEDIATE S-DO = Susceptible-dose dependent NS = Non-suscceptible NO = No Interpretation ] Organism: PROTEUS MIRABILIS Antibiotic Interpretation EVAN Status AMPICILLIN S <=2 F AMP/SULBACTAM S <=2/1 F CEFAZOLIN S <=4 F CEFTRIAXONE S <=0.25 F CIPROFLOXACIN S <=0.25 F GENTAMICIN S <=1 F LEVOFLOXACIN S <=0.12 F NITROFURANTOIN R 128 F PIPERACIL/TAZOBACTAM S <=4 F TOBRAMYCIN S <=1 F TRIMETH/SULFAMETHOXA ZOLE S <=1/19 F [ S = SUSCEPTIBLE R = RESISTANT I = INTERMEDIATE S-DO = Susceptible-dose dependent NS = Non-suscceptible NO = No Interpretation ] Organism: ESCHERICHIA COLI Antibiotic Interpretation EVAN Status AMPICILLIN R >=32 F AMP/SULBACTAM R >=32/16 F CEFAZOLIN R >=64 F CEFTRIAXONE R >=64 F CIPROFLOXACIN R >=4 F GENTAMICIN R >=16 F LEVOFLOXACIN R >=8 F NITROFURANTOIN R 128 F PIPERACIL/TAZOBACTAM S <=4 F TOBRAMYCIN R >=16 F TRIMETH/SULFAMETHOXA ZOLE R >=16304 F ESBL Test A F ESBL Test Organism produces an extended spectrum beta lactamase (ESBL). It may be clinically resistant to therapy with penicillins, cephalosporins, or aztreonam. Contact laboratory if further information is required. F ERTAPENEM S <=0.12 F Susceptible [facility] Comment on above: Performed By: #### C BCA, [facility], 20556-7 #### [facility] ([id number]) [address] [place] [address] 37038 VENOUS BLOOD GASon 5 RO'S TEST Normal [facility] Comment on above: Performed By: #### V BG #### [facility] ([id number]) [address] [place] [address]243 Base excess Calc (Bld) [Moles/Vol] 5.0 mmol/L High 0.0-2.0 [facility] Comment on above: Performed By: #### V BG #### [facility] ([id number]) [address] [place] [address] 77939 Body temperature 98.6 [degF] Normal 37.0 [facility] Comment on above: Performed By: #### V BG #### [facility] ([id number]) [address] [place] [address] 79819 HCO3 (Bld) [Moles/Vol] 28.9 mmol/L High 20.0-24.0 [facility] Comment on above: Performed By: #### V BG #### [facility] ([id number]) [address] [place] [address] 01263 Oxygen saturation in Blood 50.0 % Low >80.0 [facility] Comment on above: Performed By: #### V BG #### [facility] ([id number]) [address] [place] [address] 65217 OXYGEN SOURCE RoomAir Normal [facility] Comment on above: Performed By: #### V BG #### [facility] ([id number]) [address] [place] [address] 90890 PCO2, VENOUS 36.9 MMHG Normal 35-50 [facility] Comment on above: Performed By: #### V BG #### [facility] ([id number]) [address] [place] [address] 75015 PH, VENOUS 7.501 High 7.320-7.420 [facility] Comment on above: Performed By: #### V BG #### [facility] ([id number]) [address] [place] [address] 85783 PO2, VENOUS 24 MMHG Low 30-50 [facility] Comment on above: Performed By: #### V BG #### [facility] ([id number]) [address] [place] [address]958 SAMPLE SITE N/A Normal [facility] Comment on above: Performed By: #### V BG #### [facility] ([id number]) [address] [place] [address] 19169 SAMPLE TYPE VENOUS Normal [facility] Comment on above: Performed By: #### V BG #### [facility] ([id number]) [address] [place] [address] 94607 XR CHEST 1 VWon 05-15-2024 XR CHEST 1 VW XR CHEST 1 VW Clinical history: Shortness of breath. Lethargy. Comparisons: None Findings: AP upright chest radiograph obtained at 4:53 PM. Heart size and pulmonary vasculature appear within normal limits. There is hypoventilation with low lung volumes. No pulmonary parenchymal consolidation. No pleural effusion. No pneumothorax. IMPRESSION: 1. Hypoventilation with low lung volumes, otherwise no acute finding in the chest. Finalized by Jignesh Aguillon MD on 05/15/2024 5:45 PM Normal [facility] XR TIBIA FIBULA RT MIN 2 VWS on 05-15-2024 XR TIBIA FIBULA RT MIN 2 VWS XR TIBIA FIBULA RT MIN 2 VWS EXAM: XR TIBIA FIBULA RT MIN 2 VWS CLINICAL INDICATIONS: infection. Confusion, lethargy. No sore on right lower extremity. FINDINGS: Changes of total knee arthroplasty, partially visualized, without obvious hardware complication. Hardware is also partially assessed in the first digit metatarsals. Bone demineralization without evidence of acute fracture or malalignment. Significant soft tissue swelling overlying the medial malleolus without obvious underlying cortical erosion. IMPRESSION: Significant soft tissue swelling overlying the medial malleolus without obvious underlying cortical erosion. Please note that radiographs are insensitive for the evaluation of osteomyelitis. If clinically indicated, consider further evaluation with MRI. Finalized by Jesse Mejia on 05/15/2024 5:52 PM Normal [facility] Adapticon 05-13-2024 APPLIED IN CLINIC MANUALL Y TRANSCRIBED RESULTS [facility] Medi-honeyon 05-13-2024 APPLIED IN CLINIC TODAY MANUALLY TRANSCRIBED RESULTS [facility] Optifoam Non-Adhesive Foamon 05-13-2024 APPLIED IN CLINIC TODAY MANUALLY TRANSCRIBED RESULTS [facility] No Panel Informationon 04-03 Applied in clinic today MANUALLY TRANSCRIBED RESULTS [facility] No Panel Informationon 03-20 Applied in clinic today MANUALLY TRANSCRIBED RESULTS [facility] No Panel Informationon 02-27 Applied in clinic today MANUALLY TRANSCRIBED RESULTS [facility] Bacteria identified Aer cx N om (Wound)on 02-16-2024 Microscopic observation Gram stain Nom (Unsp spec) 0 WHITE BLOOD CELLS/LPF [facility] Microscopic observation Gram stain Nom (Unsp spec) 0 SQUAMOUS EPITHELIAL CELLS/LPF [facility] Microscopic observation Gram stain Nom (Unsp spec) Positive [facility] Microscopic observation Gram stain Nom (Unsp spec) Negative [facility] Service comment (Unsp spec) [Interp] Negative [facility] Service comment (Unsp spec) [Interp] NO STAPHYLOCOCCUS AUREUS ISOLATED [facility] Service comment (Unsp spec) [Interp] NO PSEUDOMONAS AERUGINOSA ISOLATED [facility] Service comment (Unsp spec) [Interp] NO BETA HEMOLYTIC STREPTOCOCCI ISOLATED [facility] SUPERFICIAL WOUND CULTUREon 02-14-2024 Bacteria identified Aer cx Nom (Wound) GRAM STAIN 0 WHITE BLOOD CELLS/LPF 0 SQUAMOUS EPITHELIAL CELLS/LPF MANY GRAM POSITIVE COCCI MANY GRAM NEGATIVE RODS MANY GRAM POSITIVE RODS CULTURE RESULTS MANY MIXED GRAM POSITIVE AND GRAM NEGATIVE ORGANISMS NO STAPHYLOCOCCUS AUREUS ISOLATED NO PSEUDOMONAS AERUGINOSA ISOLATED NO BETA HEMOLYTIC STREPTOCOCCI ISOLATED Normal [facility] Comment on above: Performed By: #### 6 32-0 #### [facility] ([id number]) [address], [address] [place] [address] BASIC METABOLIC PANLon 05-31 Anion gap [Moles/Vol] 10 mmol/L Normal 5-15 [facility] Comment on above: Performed By: #### C BCA, BMP #### [facility] ([id number]) [address], [address] [place] [address] Calcium [Mass/Vol] 7.9 mg/dL Low 8.5-10.5 [facility] Comment on above: Performed By: #### C BCA, BMP #### [facility] ([id number]) [address], [address] [place] [address] Chloride [Moles/Vol] 98 mmol/L Normal 98-109 [facility] Comment on above: Performed By: #### C BCA, BMP #### [facility] ([id number]) [address], [address] [place] [address] CO2 [Moles/Vol] 29 mmol/L Normal 22-32 [facility] Comment on above: Performed By: #### C BCA, BMP #### [facility] ([id number]) [address], [address] [place] [address] Creatinine [Mass/Vol] 3.70 mg/dL High 0.40-1.00 [facility] Comment on above: Result Comment: METH OD TRACEABLE TO IDMS STANDARD Performed By: #### C BCA, BMP #### [facility] ([id number]) [address], [address] [place] [address] GFR/1.73 sq M.predicted among non-blacks MDRD (S/P/Bld) [Vol rate/Area] 13 mL/min/{1.73_m2} Low >59 [facility] Comment on above: Result Comment: Reported eGFR is based on the CKD-EPI 2020 equation that does not use a race coefficient. Performed By: #### C BCA, BMP #### [facility] ([id number]) [address] [address] Glucose [Mass/Vol] 93 mg/dL Normal 65-99 [facility] Comment on above: Performed By: #### C BCA, BMP #### [facility] ([id number]) [address] [address] Potassium [Moles/Vol] 3.9 mmol/L Normal 3.5-5.0 [facility] Comment on above: Performed By: #### C BCA, BMP #### [facility] ([id number]) [address] [address] Sodium [Moles/Vol] 137 mmol/L Normal 134-146 [facility] Comment on above: Performed By: #### C BCA, BMP #### [facility] ([id number]) [address] [address] Urea nitrogen [Mass/Vol] 26 mg/dL Normal 5-27 [facility] Comment on above: Performed By: #### C BCA, BMP #### [facility] ([id number]) [address] [address] CBC AND AUTO DIFFon 06-01-19 24 ABSOLUTE BASOPHIL 0.0 X10E9/L Normal 0.0-0.2 [facility] Comment on above: Performed By: #### C BCA, BMP #### [facility] ([id number]) [address], [address] [place] [address] ABSOLUTE NEUTROPHIL 4.8 X10E9/L Normal 1.5-6.6 [facility] Comment on above: Performed By: #### C LUIS, BMP #### [facility] ([id number]) [address], [address] [place] [address] Basophils/100 WBC (Bld) 0.3 % Normal [facility] Comment on above: Performed By: #### C LUIS, BMP #### [facility] ([id number]) [address], [address] [place] [address] Eosinophils (Bld) [#/Vol] 0.5 10*3/uL High 0.0-0.4 [facility] Comment on above: Performed By: #### C LUIS, BMP #### [facility] ([id number]) [address], [address] [place] [address] Eosinophils/100 WBC (Bld) 6.1 % Normal [facility] Comment on above: Performed By: #### C LUIS, BMP #### [facility] ([id number]) [address], [address] [place] [address] Erythrocyte distribution width (RBC) [Ratio] 19.2 % High 11.5-15.0 [facility] Comment on above: Performed By: #### C LUIS, BMP #### [facility] ([id number]) [address], [address] [place] [address] Hematocrit (Bld) [Volume fraction] 25.0 % Low 35-47 [facility] Comment on above: Performed By: #### C LUIS, BMP #### [facility] ([id number]) [address], [address] [place] [address] Hemoglobin (Bld) [Mass/Vol] 8.6 g/dL Low 11.7-15.5 [facility] Comment on above: Performed By: #### C BCA, BMP #### [facility] ([id number]) [address], [address] [place] [address] Lymphocytes (Bld) [#/Vol] 1.6 10*3/uL Normal 1.0-3.5 [facility] Comment on above: Performed By: #### C BCA, BMP #### [facility] ([id number]) [address], [address] [place] [address] Lymphocytes/100 WBC (Bld) 20.1 % Normal [facility] Comment on above: Performed By: #### C LUIS, BMP #### [facility] ([id number]) [address], [address] [place] [address] MCH (RBC) [Entitic mass] 31.8 pg Normal 27-34 [facility] Comment on above: Performed By: #### C LUIS, BMP #### [facility] ([id number]) [address], [address] [place] [address] MCHC (RBC) [Mass/Vol] 34.5 g/dL Normal 32-36 [facility] Comment on above: Performed By: #### C LUIS, BMP #### [facility] ([id number]) [address], [address] [place] [address] MCV (RBC) [Entitic vol] 92 fL Normal 80-100 [facility] Comment on above: Performed By: #### C BCA, BMP #### [facility] ([id number]) [address], [address] [place] [address] Monocytes (Bld) [#/Vol] 1.0 10*3/uL High 0-0.9 [facility] Comment on above: Performed By: #### C BCA, BMP #### [facility] ([id number]) [address], [address] [place] [address] Monocytes/100 WBC (Bld) 12.4 % Normal [facility] Comment on above: Performed By: #### C BCA, BMP #### [facility] ([id number]) [address], [address] [place] [address] Neutrophils/100 WBC (Bld) 61.1 % Normal [facility] Comment on above: Performed By: #### C BCA, BMP #### [facility] ([id number]) [address], [address] [place] [address] Platelet mean volume (Bld) [Entitic vol] 8.5 fL Normal 7-12 [facility] Comment on above: Performed By: #### C BCA, BMP #### [facility] ([id number]) [address], [address] [place] [address] Platelets (Bld) [#/Vol] 150 10*3/uL Normal 150-450 [facility] Comment on above: Performed By: #### C BCA, BMP #### [facility] ([id number]) [address], [address] [place] [address] RBC COUNT 2.72 X10E12/L Low 3.80-5.20 [facility] Comment on above: Performed By: #### C BCA, BMP #### [facility] ([id number]) [address], [address] [place] [address] WBC (Bld) [#/Vol] 7.9 10*3/uL Normal 4.0-11.0 [facility] Comment on above: Performed By: #### C BCA, BMP #### [facility] ([id number]) [address], [address] [place] [address] BASIC METABOLIC PANLon 05-30 Anion gap [Moles/Vol] 10 mmol/L Normal 5-15 [facility] Comment on above: Performed By: #### B MP, CBC #### [facility] ([id number]) [address], [address] [place] [address] Calcium [Mass/Vol] 7.6 mg/dL Low 8.5-10.5 [facility] Comment on above: Performed By: #### B JO ANN, CBC #### [facility] ([id number]) [address], [address] [place] [address] Chloride [Moles/Vol] 95 mmol/L Low 98-109 [facility] Comment on above: Performed By: #### B JO ANN, CBC #### [facility] ([id number]) [address], [address] [place] [address] CO2 [Moles/Vol] 29 mmol/L Normal 22-32 [facility] Comment on above: Performed By: #### B JO ANN, CBC #### [facility] ([id number]) [address] [address] [place] [address] Creatinine [Mass/Vol] 5.01 mg/dL High 0.40-1.00 [facility] Comment on above: Result Comment: METH OD TRACEABLE TO IDMS STANDARD Performed By: #### B JO ANN, CBC #### [facility] ([id number]) [address] [place] [address] GFR/1.73 sq M.predicted among non-blacks MDRD (S/P/Bld) [Vol rate/Area] 9 mL/min/{1.73_m2} Low >59 [facility] Comment on above: Result Comment: Reported eGFR is based on the CKD-EPI 2020 equation that does not use a race coefficient. Performed By: #### B JO ANN, CBC #### [facility] ([id number]) [address] [address] [place] [address] Glucose [Mass/Vol] 95 mg/dL Normal 65-99 [facility] Comment on above: Performed By: #### Greg CHERRY, CBC #### [facility] ([id number]) [address], [address] [place] [address] Potassium [Moles/Vol] 3.7 mmol/L Normal 3.5-5.0 [facility] Comment on above: Performed By: #### B MP, CBC #### [facility] ([id number]) [address], [address] [place] [address] Sodium [Moles/Vol] 134 mmol/L Normal 134-146 [facility] Comment on above: Performed By: #### B MP, CBC #### [facility] ([id number]) [address], [address] [place] [address] Urea nitrogen [Mass/Vol] 40 mg/dL High 5-27 [facility] Comment on above: Performed By: #### B MP, CBC #### [facility] ([id number]) [address] [place] [address] COMPLETE BLOOD COUNTon 05-30 Erythrocyte distribution width (RBC) [Ratio] 17.7 % High 11.5-15.0 [facility] Comment on above: Performed By: #### B MP, CBC #### [facility] ([id number]) [address] [place] [address] Hematocrit (Bld) [Volume fraction] 16.9 % Low 35-47 [facility] Comment on above: Performed By: #### B MP, CBC #### [facility] ([id number]) [address], [address] [place] [address] Hemoglobin (Bld) [Mass/Vol] 5.8 g/dL Critically low 11.7-15.5 [facility] Comment on above: Performed By: #### B MP, CBC #### [facility] ([id number]) [address], [address] [place] [address] MCH (RBC) [Entitic mass] 33.5 pg Normal 27-34 [facility] Comment on above: Performed By: #### B MP, CBC #### [facility] ([id number]) [address] [address] [place] [address] MCHC (RBC) [Mass/Vol] 34.7 g/dL Normal 32-36 [facility] Comment on above: Performed By: #### B MP, CBC #### [facility] ([id number]) [address], [address] [place] [address] MCV (RBC) [Entitic vol] 97 fL Normal 80-100 [facility] Comment on above: Performed By: #### B MP, CBC #### [facility] ([id number]) [address] [facility] [address] [place] [address] Platelet mean volume (Bld) [Entitic vol] 8.8 fL Normal 7-12 [facility] Comment on above: Performed By: #### B MP, CBC #### [facility] ([id number]) [address], [address] [place] [address] Platelets (Bld) [#/Vol] 136 10*3/uL Low 150-450 [facility] Comment on above: Performed By: #### B MP, CBC #### [facility] ([id number]) [address], [address] [place] [address] RBC COUNT 1.75 X10E12/L Low 3.80-5.20 [facility] Comment on above: Performed By: #### B MP, CBC #### [facility] ([id number]) [address] [address] [place] [address] WBC (Bld) [#/Vol] 7.1 10*3/uL Normal 4.0-11.0 [facility] Comment on above: Performed By: #### B MP, CBC #### [facility] ([id number]) [address] [place] [address] IR ANGIO EXTREMITY LTon 03-2 IR ANGIO [...] total sedation time of 180 minutes of qqal-yp-abyr moderate sedation was provided by the same personnel. Following the procedure, the patient was recovered according to the moderate sedation policy. ANESTHESIA: 10 mL of 1% lidocaine were used for skin and subcutaneous tissue local anesthesia. TIME OUT: [place] Protocol Time Out Verification performed. PROCEDURE: Automatic [...] the wire and placed a short 5 [place] sheath. Contrast was injected, refluxing downstream and [...] across the stenosis and dilated. A 4 [place] catheter was advanced through the sheath over [...] raise suspicion (more content not included)... Normal [facility] MRI SHOULDER LT WO CONon MRI SHOULDER [...] HYALINE CARTILAGE: Complete loss of cartilage with [id number]-hicr articulation between the humeral head and glenoid, [...] by: BANDAR SHOOK Date: 2022-07-05 07:38 Normal [facility] MG MAMM SCREEN SAMAN W CADon 0 05-10-2022 MG MAMM SCREEN SAMAN W CAD Patient: DONNA MATHEWS Exam Date: 05/10/2022 : 1960 Gender:F Ordering : MRS. HOLLAND AYANA AGRICULTURE INSTRUCTOR-C Admission #: [id number] Family : Order #: [id number] CLICK HERE TO VIEW EXAM RADIOLOGY REPORT [...] rectal cancer at age 53. LOCATION: [facility] BREAST COMPOSITION: Heterogeneously dense,which may obscure [...] Saunders MD on 05/11/2022 at 12:31 Normal [facility] XR DEXA BONE DENSITYon 05-10 XR [...] by: EL SAUNDERS Date: 2022-05-10 16:17 Normal [facility] MRI BRAIN WO W CONon 023 MRI BRAIN WO W CON EXAMINATION: MRI BRAIN WO W CON HISTORY: Multiple sclerosis COMPARISON: [...] BANDAR SHOOK Date: 2022-04-13 07:38 Normal [facility] BUNon 04-12-2022 Urea nitrogen [Mass/Vol] 37.0 mg/dL Critically high 7.0-18.0 [facility] Comment on above: Performed By: #### C KIARA, BUN #### [facility] [address] [address] [address] Ellen Layne CREATININEon 04-12-2022 Creatinine [Mass/Vol] 1.79 mg/dL Critically high 0.55-1.02 [facility] Comment on above: Performed By: #### C KIARA, BUN #### [facility] [address] [address] [address] Ellen Layne EGFR-AF MACANESE 35 mL/min/1.73m2 Critically low >=60 [facility] Comment on above: Performed By: #### C KIARA, BUN #### [facility] [address] [address] [address] Ellen Layne EGFR-NON AF MACANESE 29 mL/min/1.73m2 Critically low >=60 [facility] Comment on above: Performed By: #### C KIARA, BUN #### [facility] [address] [address] [address] Ellen Layne Gastroenterology Office/Clin ic Noteon 05-18-2021 Gastroenterology Office/Clinic Note Chief Complaint ref by [facility]- abnormal labs HPI Staff This is a 60 year old female who presents today for a referral by [facility] for complaints of abnormal renal labs. History of Present Illness The patient is a [facility] resident and was referred to me, but [...] rubs, murmurs, or gallop. Peripheral: no edema. Gastrointestinal/Abd omen: Abdomen: normal consistency and bowel sounds; no [...] I advised the patient to call the [facility] and clarify why she was referred. 2. Screen for colon cancer (Z12.11: Encounter for screening for malignant neoplasm of colon) Documentation services were performed after patient or guardian consented to allow Rogelio Yates Robert to record this visit. ANABELLE phone triage specialist and provider reviewed before signing. ANABELLE: [...] glucosamine, Oral hydrocortisone topical 1% cream, 1 caitlin, Topical, BID hydrOXYzine lactulose Lidoderm 5% Patch, [...] mg= 1 tab(s), Oral, Daily Vitamin D, 9[address] International_Unit, Oral, qWeek Zanaflex 4 mg Tab, 4 mg= 1 tab(s), Oral, Daily Zinbryta, 150 mg, SubCutaneous, qMonth Allergies No Known Allergies Social History Alcohol - Denies Alcohol Use, 10/19/2010 Past, 10/19/2010 Substance Abuse - Denies Substance Abuse, (more content not included)... Normal [facility] Comment on above: Result Comment: Elec tronically [...] no longer receiving treatment for. DVT Osteopenia [facility] 08-22-2020 [facility] DONNA [facility]HE[facility] ([id number]) 1960 F Date Time Provider Department 08/22/20 QUINTEN LEWIS MERGED WITH [facility] During your visit today, we recorded the following information about you: Shahrzad Truong 08/22/2020 2:27 PM Signed Patient calling in regards to the [employer] that provider advise patient call. States she ordered shoes and its been over a month but lost their number and has no way of getting in touch with them. Patient is requesting a call at [phone] Please advise. Alize Patton 08/23/2020 1:19 PM Signed Replied with phone number via my chart. Allergies As of Date: 08/22/2020 (No Known Allergies) Date Reviewed: 07/27/2020 Reviewed by: Alize Del[facility]Saint [facility] University HospitalMaria Luisa Patton - Fully Assessed Reason for Visit: Question [7657] Prescriptions as of 07/04/2021 - atorvastatin (LIPITOR) 80 mg tablet - traMADol (ULTRAM) 50 mg tablet Take 50 mg by mouth every 8 hours as needed. - tiZANidine (ZANAFLEX) 4 mg tablet Take 4 mg by mouth with meals and at bedtime. - FOLIC ACID/MV,FE,OTHER MIN/LUT (CERTAVITE WITH LUTEIN ORAL) Take by mouth. 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/2014 Encounter Status:Closed by ERWIN TRUONGSHAHRZAD on 07/04/21 [facility] CNOVon 07-27-2020 CNOV Office Visit (LOORRM) DONNA MATHEWS ([id number]) 1960 F Date Time Provider Department 07/27/20 [...] Allergies) Date Reviewed: 07/27/2020 Reviewed by: Alize Patton Clinical Tech - Fully Assessed Reason for Visit: [...] Status:Closed by QUINTEN LEWIS on 07/28/20 Normal [facility] XR Foot - right AP and Later al and obliqueon 05-25-2020 Radiology Study observation (narrative) [facility] IMPRESSION: NO ACUTE OSSEOUS ABNORMALITY OTHER FINDINGS DESCRIBED Structural Steel Trades Worker: VANESSA Transcribe Date/Time: May 25 2020 12:58P Dictated by : IVANA BONILLA MD This examination was interpreted and the report reviewed and electronically signed by: IVANA BONILLA MD on May 25 2020 1:00PM [facility] DIVISION OF RADIOLOGY * * *Final Report* * * DATE OF EXAM: May 25 2020 12:56PM LZX 5337 - XR FOOT 3V AP/LAT/OBL RT / PROCEDURE REASON: Pain * * * * Physician Interpretation * * * * HISTORY: Pain . Plantar fasciatitis, pain in toes, open sores TECHNIQUE: XR FOOT 3V AP/LAT/OBL RT Laterality: RIGHT Views: 3 COMPARISON: None RESULT: Arthrodesis of the first MTP joint using 2 screws. Solid appearing bony fusion. Arthrodesis of the PIP joint of the second toe. Amputation of the distal phalanx of the fourth toe. 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 Diffuse osteopenia. No fracture identified. Small calcaneal spurs. The lateral view is obliqued. No other significant abnormality. ----- DIVISION OF RADIOLOGY Provider, [facility] - 05/25/2020 * * *Final Report* * * DATE OF EXAM: May 25 2020 12:56PM LZX 5337 - XR FOOT 3V AP/LAT/OBL RT / PROCEDURE REASON: Pain * * * * Physician Interpretation * * * * HISTORY: Pain . Plantar fasciatitis, pain in toes, open sores TECHNIQUE: XR FOOT 3V AP/LAT/OBL RT Laterality: RIGHT Views: 3 COMPARISON: None RESULT: Arthrodesis of the first MTP joint using 2 screws. Solid appearing bony fusion. Arthrodesis of the PIP joint of the second toe. Amputation of the distal phalanx of the fourth toe. 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 Diffuse osteopenia. No fracture identified. Small calcaneal spurs. The lateral view is obliqued. No other significant abnormality. ----- IMPRESSION IMPRESSION: NO ACUTE OSSEOUS ABNORMALITY OTHER FINDINGS DESCRIBED Structural Steel Trades Worker: VANESSA Transcribe Date/Time: May 25 2020 12:58P Dictated by : IVANA BONILLA MD This examination was interpreted and the report reviewed and electronically signed by: IVANA BONILLA MD on May 25 2020 1:00PM EST [facility] XR Foot - right AP and Later al and obliqueOrdered By: [facility] Provider on 05-25-2020 [facility] ic C Urineon 06-06-2018 C Urine urine taken from cystoscope intraop for culture >100,000 cfu/ml Escherichia coli and 40,000 cfu/ml Enterococcus faecalis ORGANISM EC [employer] ----- SUSCEPTIBILITY ---- ORGANISM ID: 1 ANTIBIOTIC INTERPRETATION EVAN STATUS [...] S <=4 Verified Tri/Sulf S <=2/38 Verified ----- SUSCEPTIBILITY ---- ORGANISM ID: 2 ANTIBIOTIC INTERPRETATION EVAN STATUS [...] > Verified Vanc S 1 Verified Normal [facility] Comment on above: Performed By: #### [id number] #### [facility] (DEFAULT) [address] [place] [address] Coding Summaryon 06-05-2018 Coding Summary CODING DATE: [...] PROC APC STAT DESCRIPTION DOCTOR NAME DATE 08860 8472 T Cystourethroscopy David Gonsales MD 06/03/2018 (separate procedure) NOTE: The code number assigned matches the documented diagnosis and / or procedure in the patient's chart. However, the narrative phrase printed from the coding software may appear abbreviated, or result in slightly different terminology. Coded By: Jessica Valiente Date Saved: 06/05/2018 07:20 am Normal [facility] History and Physicalon 03-28 -2019 History and Physical [id number] #1.00[facility] Consent Formson 06-04-2018 Consent Forms [id number]# [address] [place] [address] Outside Recordson 06-04-2018 Outside Records [id number]# 1.00[facility] Provider Orderson 06-04-2018 Protein mass conc [id number][facility] In[facility] Patient Summary [address] [address] Patient Discharge Instructions Name: DONNA MATHEWS : 62 Patient [address]: [address] [place] [address] Primary Care Provider: Name: Harjit Clement MD After you are discharged if you find you have any questions, please, call [phone] ext [phone] to speak to a nurse. Discharge Diagnosis: [...] business decisions or sign any legal documents [facility] would like to thank you for allowing us to assist you with your healthcare needs. The following includes patient education materials and information regarding your injury/illness. DONNA MATHEWS has been given the following list of follow-up instructions, prescriptions, and patient education materials: Follow-up Instructions With: Address: When: David Gonsales [address], [address] [place], [place] [id number] Business (1) With: Address: When: Harjit Clement [address] [place] [address] Business (1) Medications During the course of your visit, your medication list was updated with the most current information. The details of those changes are reflected below: Medications to Continue That Have Not Changed Other Medications Al hydroxide/Mg hydroxide/simethicon e (Maalox Advanced Maximum Strength oral suspension) 20 Milliliter Oral 4 times a day. between meals and at bedtime. alendronate (alendronate 70 mg oral tablet) 1 tab(s) Oral every week. ascorbic acid (Vitamin C 500 mg oral tablet) 1 tab(s) Oral every day. aspirin (aspirin 81 mg oral delayed release tablet) 1 tab(s) Oral every day. benzocaine-dextromet horphan (Cepacol Sore Throat & Cough 7.5 mg-5 [...] you can keep with you. Al hydroxide/Mg hydroxide/simethicon e (Maalox Advanced Maximum Strength oral suspension) 20 Milliliter Oral 4 times a day. between meals and at bedtime. alendronate (alendronate 70 mg oral tablet) 1 tab(s) Oral every week. ascorbic acid (Vitamin C 500 mg oral tablet) 1 tab(s) Oral every day. aspirin (aspirin 81 mg oral delayed release tablet) 1 tab(s) Oral every day. benzocaine-dextromet horphan (Cepacol Sore Throat & Cough 7.5 mg-5 [...] for Disease Control and Prevention November [address] [facility] MAGR Intraoperative Recordon 06-03-2018 MAGR Intraoperative Record MAGR Intra-Op Record Summary Primary Physician: David Gonsales MD Finalized Date/Time: 06/03/18 16:22:13 Pt. Name: DONNA MATHEWS Nelly /Sex: 1960 FEMALE Med Rec #: [id number] Physician: David Gonsalse MD Financial #: [id number] Pt. Type: D Room/Bed: / Admit/Disch: 06/03/18 [...] Linda M Role Performed Surgeon - Primary Pit Shovel Operator Scrub Personnel Time In 06/03/18 15:45:00 06/03/18 15:45:00 06/03/18 15:45:00 Time Out 06/03/18 16:04:00 06/03/18 16:04:00 06/03/18 16:04:00 Procedure Cystoscopy Local Cystoscopy Local Cystoscopy Local Last Modified By: Long, Irlanda Campa RN, RN, Barbara RN 06/03/18 16:03:21 06/03/18 16:03:21 06/03/18 16:03:21 Surgical Procedures MAGR Pre-Care Text: A.20 Verifies operative procedure, surgical site, and laterality Im.150 Develops individualized plan of care Entry 1 Procedure Cystoscopy Local Primary Procedure Yes Primary Surgeon David Gonsales MD Surgeon Comment CYSTOSCOPY Start 06/03/18 15:52:00 Stop [...] 06/03/18 16:21 MHBLONG Modify Pick List Normal [facility] MAGR Preoperative Recordon 0 06-03-2018 MAGR Preoperative Record MAGR Pre-Op Record Summary Primary Physician: David Gonsales MD Finalized Date/Time: 06/03/18 15:51:38 Pt. Name: DONNA MATHEWS D.O.B./Sex: 1960 FEMALE Med Rec #: [id number] Physician: David Gonsales MD Financial #: [id number] Pt. Type: D Room/Bed: / Admit/Disch: 06/03/18 [...] Signed By: Irlanda Knox RN 06/03/18 15:[address] [facility] Patient Handouton 06-03-[address] [facility] Progress Note - Nurseon 05-10 Protein mass conc Talked with Yesenia @ [facility], instructed to have pt here @ 1030 on 06-03-18 and to fax Med. list-verbalized understanding. [Electronically Signed on: 06/02/2018 10:58 EDT] Cherise Espinoza RN [Verified on: 06/02/2018 10:58 EDT] Cherise Espinoza RN [facility] Vital Signs Date Time Vital Sign Value Performing Clinician Facility 07-17-2024 13:09-0400 Body temperature 97.81 [degF] Elidia Tierney GLOVE FACTORY SEWER-WINK CUTTER OPERATOR Work Phone: [facility] 07-17-2024 13:09-0400 Diastolic blood pressure 68 mm[Hg] Elidia Tierney GLOVE FACTORY SEWER-WINK CUTTER OPERATOR Work Phone: [facility] 07-17-2024 13:09-0400 Heart rate 91 /min Elidia Tierney GLOVE FACTORY SEWER-WINK CUTTER OPERATOR Work Phone: [facility] 07-17-2024 13:09-0400 Respiratory rate 16 /min Elidia Tierney GLOVE FACTORY SEWER-WINK CUTTER OPERATOR Work Phone: [facility] 07-17-2024 13:09-0400 Systolic blood pressure 125 mm[Hg] Elidia Tierney GLOVE FACTORY SEWER-WINK CUTTER OPERATOR Work Phone: [facility] 06-12-2024 13:54-0400 Body temperature 96.8 [degF] Elidia Tierney GLOVE FACTORY SEWER-WINK CUTTER OPERATOR Work Phone: [facility] 06-12-2024 13:54-0400 Diastolic blood pressure 86 mm[Hg] Elidia Tierney GLOVE FACTORY SEWER-WINK CUTTER OPERATOR Work Phone: [facility] 06-12-2024 13:54-0400 Heart rate 74 /min Elidia Tienrey GLOVE FACTORY SEWER-WINK CUTTER OPERATOR Work Phone: [facility] 06-12-2024 13:54-0400 Respiratory rate 18 /min Elidia Tierney GLOVE FACTORY SEWER-WINK CUTTER OPERATOR Work Phone: [facility] 06-12-2024 13:54-0400 Systolic blood pressure 145 mm[Hg] Elidia Tierney GLOVE FACTORY SEWER-WINK CUTTER OPERATOR Work Phone: [facility] 05-22-2024 13:17-0400 Body temperature 97.3 [degF] Pfo 1 [facility] 05-22-2024 13:17-0400 Diastolic blood pressure 60 mm[Hg] Pfo [address] [facility] 05-22-2024 13:17-0400 Heart rate 84 /min Pfo [address] [facility] 05-22-2024 13:17-0400 Respiratory rate 16 /min Pfo 1 [facility] 05-22-2024 13:17-0400 Systolic blood pressure 101 mm[Hg] Pfo [address] [facility] 05-22-2024 08:53-0400 Body mass index (BMI) [Ratio] 46.54 kg/m2 Pfo [address] [facility] 05-22-2024 08:53-0400 Body weight 130.[address] [facility] 05-22-2024 08:48-0400 Body height 167.[address] [facility] 05-22-2024 08:48-0400 SaO2% (BldA) [Mass fraction] 91 % Pfo [address] [facility] 05-20-2024 04:00-0400 Body mass index (BMI) [Ratio] 46.26 kg/m2 Fidel Jordan MD Work Phone: [facility] 05-20-2024 04:00-0400 Body weight 130 kg Fidel Jordan MD Work Phone: [facility] 05-20-2024 03:28-0400 Body temperature 98.1 [degF] Fidel Jordan MD Work Phone: [facility] 05-20-2024 03:28-0400 Diastolic blood pressure 62 mm[Hg] Fidel Jordan MD Work Phone: [facility] 05-20-2024 03:28-0400 Heart rate 74 /min Fidel Jordan MD Work Phone: [facility] 05-20-2024 03:28-0400 Respiratory rate 17 /min Fidel Jordan MD Work Phone: [facility] 05-20-2024 03:28-0400 SaO2% (BldA) [Mass fraction] 96 % Fidel Jordan MD Work Phone: [facility] 05-20-2024 03:28-0400 Systolic blood pressure 104 mm[Hg] Fidel Jordan MD Work Phone: [facility] 05-18-2024 06:41-0400 Body height 167.6 cm Fidel Jordan MD Work Phone: [facility] 05-13-2024 08:47-0500 Body temperature 98.2 [degF] Elidia Tierney GLOVE FACTORY SEWER-WINK CUTTER OPERATOR Work Phone: [facility] 05-13-2024 08:47-0500 Diastolic blood pressure 85 mm[Hg] Elidia Tierney GLOVE FACTORY SEWER-WINK CUTTER OPERATOR Work Phone: [facility] 05-13-2024 08:47-0500 Heart rate 105 /min Elidia Tierney GLOVE FACTORY SEWER-WINK CUTTER OPERATOR Work Phone: [facility] 05-13-2024 08:47-0500 Systolic blood pressure 103 mm[Hg] Elidia Tierney GLOVE FACTORY SEWER-WINK CUTTER OPERATOR Work Phone: [facility] 04-17-2024 12:32-0500 Body height 165.[address] [facility] [address] [facility] Comment on above: per SNF records 04-17-2024 12:32-0500 Body mass index (BMI) [Ratio] 46.36 kg/m2 [facility] 04-17-2024 12:32-0500 Body weight 126.[address] [facility] [address] [facility] 03-20-2024 13:37-0500 Body temperature 98.6 [degF] Elidia Tierney GLOVE FACTORY SEWER-WINK CUTTER OPERATOR Work Phone: [facility] 03-20-2024 13:37-0500 Diastolic blood pressure 78 mm[Hg] Elidia Tierney GLOVE FACTORY SEWER-WINK CUTTER OPERATOR Work Phone: [facility] 03-20-2024 13:37-0500 Heart rate 103 /min Elidia Tierney GLOVE FACTORY SEWER-WINK CUTTER OPERATOR Work Phone: [facility] 03-20-2024 13:37-0500 Respiratory rate 16 /min Elidia Tierney GLOVE FACTORY SEWER-WINK CUTTER OPERATOR Work Phone: [facility] 03-20-2024 13:37-0500 Systolic blood pressure 119 mm[Hg] Elidia Tierney GLOVE FACTORY SEWER-WINK CUTTER OPERATOR Work Phone: [facility] 03-12-2024 09:44-0500 Body height 165.[address] [facility] 03-12-2024 09:44-0500 Body mass index (BMI) [Ratio] 47.43 kg/m2 [facility] 03-12-2024 09:44-0500 Body weight 129.[address] [facility] 03-05-2024 10:33-0500 Body height 165.1 cm Kristine Murphy MD Work Phone: [facility] 03-05-2024 10:33-0500 Body mass index (BMI) [Ratio] 48.59 kg/m2 Kristine Murphy MD Work Phone: [facility] 03-05-2024 10:33-0500 Body weight 132.45 kg Kristine Murphy MD Work Phone: [facility] 02-28-2024 14:47-0500 Body temperature 97.7 [degF] Elidia Tierney AMNA-WINK CUTTER OPERATOR Work Phone: [facility] 02-28-2024 14:47-0500 Diastolic blood pressure 74 mm[Hg] Elidia Tierney AMNA-WINK CUTTER OPERATOR Work Phone: [facility] 02-28-2024 14:47-0500 Heart rate 99 /min Elidia Tierney AMNA-WINK CUTTER OPERATOR Work Phone: [facility] 02-28-2024 14:47-0500 Respiratory rate 16 /min Elidia Tierney APRN-WINK CUTTER OPERATOR Work Phone: [facility] 02-28-2024 14:47-0500 Systolic blood pressure 121 mm[Hg] Elidia Tierney AMNA-WINK CUTTER OPERATOR Work Phone: [facility] 02-14-2024 11:26-0500 Body mass index (BMI) [Ratio] 48.59 kg/m2 Elidia Tierney AMNA-WINK CUTTER OPERATOR Work Phone: [facility] 02-14-2024 11:26-0500 Body temperature 98.4 [degF] Elidia Tierney GLOVE FACTORY SEWER-WINK CUTTER OPERATOR Work Phone: [facility] 02-14-2024 11:26-0500 Body weight 132.45 kg Elidia Tierney APRN-WINK CUTTER OPERATOR Work Phone: [facility] 02-14-2024 11:26-0500 Diastolic blood pressure 50 mm[Hg] Elidia Tierney APRN-WINK CUTTER OPERATOR Work Phone: [facility] 02-14-2024 11:26-0500 Heart rate 84 /min Elidia Tierney APRN-WINK CUTTER OPERATOR Work Phone: [facility] 02-14-2024 11:26-0500 Systolic blood pressure 80 mm[Hg] Elidia Tierney GLOVE FACTORY SEWER-WINK CUTTER OPERATOR Work Phone: [facility] 01-21-2024 13:23-0500 Body height 165.1 cm Braydon Rich MD Work Phone: [facility] 01-21-2024 13:23-0500 Body mass index (BMI) [Ratio] 47.59 kg/m2 Braydon Rich MD Work Phone: [facility] 01-21-2024 13:23-0500 Body weight 129.73 kg Braydon Rich MD Work Phone: [facility] 01-21-2024 13:23-0500 Diastolic blood pressure 60 mm[Hg] Braydon Rich MD Work Phone: [facility] 01-21-2024 13:23-0500 Heart rate 72 /min Braydon Rich MD Work Phone: [facility] 01-21-2024 13:23-0500 Systolic blood pressure 100 mm[Hg] Braydon Rich MD Work Phone: [facility] 11-19-2023 15:12-0400 Diastolic blood pressure 72 mm[Hg] Elaine Huggins AGRICULTURE INSTRUCTOR Work Phone: [facility] 11-19-2023 15:12-0400 Systolic blood pressure 126 mm[Hg] Elaine Huggins AGRICULTURE INSTRUCTOR Work Phone: [facility] 10-21-2023 11:24-0400 Body height 165.1 cm Brandon Lisbeth GLOVE FACTORY SEWER-WINK CUTTER OPERATOR Work Phone: [facility] 10-21-2023 11:24-0400 Body mass index (BMI) [Ratio] 51.55 kg/m2 Brandon Lisbeth GLOVE FACTORY SEWER-WINK CUTTER OPERATOR Work Phone: [facility] 10-21-2023 11:24-0400 Body temperature 98.1 [degF] Brandon Lisbeth GLOVE FACTORY SEWER-WINK CUTTER OPERATOR Work Phone: [facility] 10-21-2023 11:24-0400 Body weight 140.52 kg Brandon Lisbeth GLOVE FACTORY SEWER-WINK CUTTER OPERATOR Work Phone: [facility] 10-21-2023 11:24-0400 Diastolic blood pressure 68 mm[Hg] Brandon Lisbeth GLOVE FACTORY SEWER-WINK CUTTER OPERATOR Work Phone: [facility] 10-21-2023 11:24-0400 Heart rate 80 /min Brandon Lisbeth GLOVE FACTORY SEWER-WINK CUTTER OPERATOR Work Phone: [facility] 10-21-2023 11:24-0400 Respiratory rate 16 /min Brandon Lisbeth GLOVE FACTORY SEWER-WINK CUTTER OPERATOR Work Phone: [facility] 10-21-2023 11:24-0400 SaO2% (BldA) [Mass fraction] 100 % Brandon Lisbeth GLOVE FACTORY SEWER-WINK CUTTER OPERATOR Work Phone: [facility] 10-21-2023 11:24-0400 Systolic blood pressure 118 mm[Hg] Brandon Lisbeth GLOVE FACTORY SEWER-WINK CUTTER OPERATOR Work Phone: [facility] 10-04-2023 10:14-0400 Body height 165.1 cm Glenna Salazar PA-C Work Phone: [facility] 10-04-2023 10:14-0400 Body mass index (BMI) [Ratio] 49.92 kg/m2 Glenna Salazar PA-C Work Phone: [facility] 10-04-2023 10:14-0400 Body weight 136.08 kg Glenna Salazar PA-C Work Phone: [facility] 08-01-2023 14:15-0400 Diastolic blood pressure 60 mm[Hg] Krystin Salcedo MD Work Phone: [facility] Comment on above: unable to doc left due to fistula 08-01-2023 14:15-0400 Systolic blood pressure 100 mm[Hg] Krystin Salcedo MD Work Phone: [facility] Comment on above: unable to doc left due to fistula 05-02-2023 12:12-0500 Body height 167.6 cm Krystin Salcedo MD Work Phone: [facility] 05-02-2023 12:12-0500 Body mass index (BMI) [Ratio] 47.64 kg/m2 Krystin Salcedo MD Work Phone: [facility] 05-02-2023 12:12-0500 Body weight 133.81 kg Krystin Salcedo MD Work Phone: [facility] 05-02-2023 12:12-0500 Diastolic blood pressure 70 mm[Hg] Krystin Salcedo MD Work Phone: [facility] 05-02-2023 12:12-0500 Systolic blood pressure 138 mm[Hg] Krystin Salcedo MD Work Phone: [facility] 04-01-2023 09:21-0500 Diastolic blood pressure 69 mm[Hg] Ziyad Ulrich APRN-WINK CUTTER OPERATOR Work Phone: [facility] 04-01-2023 09:21-0500 Heart rate 84 /min Ziyad Ulrich APRN-MARYAM Work Phone: [facility] 04-01-2023 09:21-0500 SaO2% (BldA) [Mass fraction] 96 % Ziyad Ulrich APRN-WINK CUTTER OPERATOR Work Phone: [facility] 04-01-2023 09:21-0500 Systolic blood pressure 140 mm[Hg] Ziyad Ulrich GLOVE FACTORY SEWER-WINK CUTTER OPERATOR [facility] 01-24-2021 09:20-0500 Body height 170.18 cm Kendell Radha Other [employer] Other 01-24-2021 09:20-0500 Body mass index (BMI) [Ratio] 49.17 kg/m2 Kendell Radha Other [employer] Other 01-24-2021 09:20-0500 Body weight 142.43 kg Kendell Radha Other [employer] Other 01-24-2021 09:20-0500 Diastolic blood pressure 86 mm[Hg] Kendell Radha Other [employer] Other 01-24-2021 09:20-0500 Systolic blood pressure 134 mm[Hg] Kendell Radha Other [employer] Other Encounters Encounter Date Encounter Type Care Provider Facility Start: 07-17-2024 End: 07-17-2024 Patient encounter procedure Francine Garcia MD Work Phone: [facility] Comment on above: Pressure injury of r ight calf, stage 3 (CMS-HCC) (Primary Dx); Lymphedema; ISTAP type 3 skin tear of plantar aspect of left foot Start: 07-17-2024 End: 07-17-2024 ambulatory ELIDIA TIERNEY [facility] Start: 07-02-2024 End: 07-02-2024 Telephone encounter Cm Mathews AGRICULTURE INSTRUCTOR Work Phone: [facility] Start: 07-01-2024 End: 07-01-2024 Bamboo flowsheet Elaine Huggins AGRICULTURE INSTRUCTOR Work Phone: [facility] Start: 07-01-2024 End: 07-01-2024 Bamboo flowsheet Elaine Huggins AGRICULTURE INSTRUCTOR Work Phone: [facility] Start: 07-01-2024 End: 07-01-2024 ambulatory ELAINE YADIRA Not Available Start: 06-23-2024 End: 06-24-2024 Elva Wise MD Work Phone: [facility] Department of [facility] Start: 06-12-2024 End: 06-12-2024 ambulatory ELIDIA TIERNEY [facility] Start: 06-12-2024 End: 06-12-2024 Patient encounter procedure Francine Garcia MD Work Phone: [facility] Comment on above: Pressure injury of r ight calf, stage 3 ([facility]) (Primary Dx); Pressure injury of left calf, stage 2 ([facility]); Lymphedema Start: 06-03-2024 End: 06-03-2024 Orders Only Bertha Mercado [facility] On[facility] Comment on above: Anemia of chronic di sease (Primary Dx); ESRD (end stage renal disease) on dialysis ([facility]); Low hemoglobin Start: 05-22-2024 End: 05-22-2024 ambulatory Pfo Infusion Chair 1 Marialuisa Alvarez [facility] - Medical Oncology Comment on above: Anemia of chronic di sease; ESRD (end stage renal disease) on dialysis ([facility]); Low hemoglobin; Chronic renal impairment, stage 4 (severe) ([facility]); Personal history of DVT (deep vein thrombosis) Start: 05-21-2024 End: 05-21-2024 Orders Only Bertha Mercado [facility] Comment on above: Anemia of chronic di sease (Primary Dx); ESRD (end stage renal disease) on dialysis ([facility]); Low hemoglobin; Chronic renal impairment, stage 4 (severe) ([facility]); Personal history of DVT (deep vein thrombosis) Start: 05-16-2024 End: 05-20-2024 [facility] Start: 05-16-2024 End: 05-20-2024 Evaluation and management of inpatient Meghan A María MD Work Phone: [facility] - [facility] 7W Acute Comment on above: Hyperkalemia (Primar y Dx); Epigastric pain; Debility; ESRD (end stage renal disease) ([facility]) Start: 05-15-2024 End: 05-16-2024 Emergency department patient visit TODD GEORGE [facility] Start: 05-13-2024 End: 05-13-2024 ambulatory ELIDIA TIERNEY [facility] Start: 05-13-2024 End: 05-13-2024 Patient encounter procedure Francine Garcia MD Work Phone: [facility] Comment on above: Pressure injury of r ight calf, stage 3 [facility] (Primary Dx); Pressure injury of left calf, stage 2 ([facility]); Lymphedema Start: 04-28-2024 End: 04-28-2024 Telephone encounter Cm Mathews NP Work Phone: [facility] Start: 04-17-2024 End: 04-17-2024 Evaluation and management of inpatient TODD GEORGE [facility] Start: 04-16-2024 End: 04-17-[address] [facility] Phone Call Provider 1 [facility] Start: 04-03-2024 End: 04-03-2024 ambulatory ELIDIA TIERNEY [facility] Start: 04-03-2024 End: 04-03-2024 Office outpatient visit 10 minutes Francine Garcia MD Work Phone: [facility] Comment on above: Pressure injury of r ight calf, stage 3 ([facility]) (Primary Dx); Pressure injury of left calf, stage 2 ([facility]) Start: 03-23-2024 End: 04-13-2024 Telephone encounter Kasey Phan Mervin [facility] General Surgery Start: 03-20-2024 End: 03-20-2024 ambulatory ELIDIA TIERNEY [facility] Start: 03-20-2024 End: 03-20-2024 Patient encounter procedure Francine Garcia MD Work Phone: [facility] Comment on above: Pressure injury of r ight calf, stage 3 ([facility]) (Primary Dx); Pressure injury of left calf, stage 2 ([facility]); 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 Start: 03-13-2024 End: 03-13-2024 Refill Rajendra Wise MD Work Phone: [facility] Comment on above: Positive occult stoo l blood test (Primary Dx) Preop examination (P rimary Dx); Hypertension, unspecified type; Chronic renal impairment, stage 4 (severe) ([facility]); BMI 45.0-49.9, adult ([facility]) Start: 03-12-2024 End: 03-12-2024 ambulatory TODD GEORGE [facility] Start: 03-12-2024 Encounter for other preprocedural examination [facility] Start: 03-09-2024 End: 03-09-2024 Telephone encounter Cm Mathews NP Work Phone: [facility] Start: 03-05-2024 End: 03-05-2024 Office outpatient new 30 minutes Kristine Murphy MD Work Phone: [facility] Comment on above: Pressure injury of r ight calf, stage 3 ([facility]) (Primary Dx) Start: 03-05-2024 End: 03-05-2024 [facility] Start: 03-02-2024 End: 03-02-2024 Telephone encounter Opal Amin CMA [facility] Start: 03-02-2024 End: 03-02-2024 ambulatory [facility] Start: 02-28-2024 End: 02-28-2024 ambulatory ELIDIA Eduardo KELSY [facility] Start: 02-28-2024 End: 02-28-2024 Patient encounter procedure Francine Garcia MD Work Phone: [facility] Comment on above: Pressure injury of r ight calf, stage 3 (CMS-HCC) (Primary Dx); Pressure injury of left calf, stage 2 (CMS-HCC); 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 Start: 02-19-2024 End: 02-19-2024 ambulatory ELAINE HUGGINS Not Available Start: 02-19-2024 End: 02-19-2024 Bamboo flowsheet Elaine Huggins AGRICULTURE INSTRUCTOR Work Phone: [facility] [employer] [address] Start: 02-19-2024 End: 02-19-2024 Bamboo flowsheet Elaine Huggins AGRICULTURE INSTRUCTOR Work Phone: [employer] [address] Start: 02-19-2024 End: 02-19-2024 Telephone encounter Rajendra Wise MD Work Phone: [facility] Start: 02-19-2024 End: 02-19-2024 Evaluation and management of inpatient RAJENDRA WISE [facility] Start: 02-14-2024 End: 02-14-2024 ambulatory [facility] Start: 02-14-2024 End: 02-14-2024 ambulatory [facility] Start: 02-14-2024 End: 02-14-2024 Office outpatient new 30 minutes Francine Garcia MD Work Phone: [facility] Comment on above: Pressure injury of r ight calf, stage 3 (CMS-HCC) (Primary Dx); Pressure injury of left calf, stage 2 (CMS-HCC); 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; Traumatic ulcer of right foot limited to breakdown of skin ([facility]); Decreased pedal pulses; Lymphedema Start: 02-10-2024 End: 02-10-2024 Evaluation and management of inpatient TODD GEORGE [facility] Start: 02-05-2024 End: 02-10-2024 Admission to [facility] Pat Phone Call Provider 2 [facility] Start: 01-30-2024 End: 01-30-2024 Refill Rajendra [facility] MD [facility] Phone[facility] Comment on above: Positive occult stoo l blood test (Primary Dx); Colon cancer screening Start: 01-21-2024 End: 01-21-2024 Office outpatient visit 15 minutes Braydon Rich MD Work Phone: [facility] Comment on above: Arteriovenous fistul a stenosis, subsequent encounter (Primary Dx); MS (multiple sclerosis) ([facility]); ESRD (end stage renal disease) ([facility]) Start: 01-21-2024 End: 01-21-2024 ambulatory BRAYDON RICH [facility] Start: 12-26-2023 End: 12-26-2023 Telephone encounter Cm Mathews AGRICULTURE INSTRUCTOR Work Phone: [facility] Start: 12-06-2023 End: 12-06-2023 Refill Rajendra Wise MD Work Phone: [facility] Comment on above: Positive occult stoo l blood test (Primary Dx); Colon cancer screening Start: 11-29-2023 End: 01-01-2024 Telephone encounter [facility] Start: 11-26-2023 End: 11-26-2023 Telephone encounter Elaine Huggins AGRICULTURE INSTRUCTOR Work Phone: [facility] [address] Start: 11-25-2023 End: 11-25-2023 ambulatory Fausto Vasquez MD Facility: [facility] Start: 11-21-2023 End: 11-21-2023 Telephone encounter Elaine Huggins AGRICULTURE INSTRUCTOR Work Phone: [facility] [address] Start: 11-19-2023 End: 11-19-2023 Office outpatient visit 25 minutes Elaine Huggins NP Work Phone: [facility] [address] Comment on above: MS (multiple scleros is) ([facility]) (Primary Dx); Encounter for medication monitoring; Radiculopathy, lumbosacral region; Weakness of both lower extremities; Cervical radiculopathy; Anxiety and depression ([facility]) Start: 11-19-2023 End: 11-19-2023 ambulatory ELAINE RIVERSOLL Not Available Start: 11-19-2023 End: 11-19-2023 Bamboo flowsheet Elaine Huggins AGRICULTURE INSTRUCTOR Work Phone: [facility] Start: 11-19-2023 End: 11-19-2023 Bamboo flowsheet Elaien Huggins AGRICULTURE INSTRUCTOR Work Phone: [facility] Start: 10-30-2023 End: 10-30-2023 Telephone encounter Cm Mathews AGRICULTURE INSTRUCTOR Work Phone: [facility] Start: 10-21-2023 End: 10-21-2023 Office outpatient visit 25 minutes Brandon FUENTES Work Phone: Marialuisa Villegas [facility] - [facility] On[facility] Comment on above: Anemia of chronic di sease (Primary Dx); Personal history of DVT (deep vein thrombosis); ESRD (end stage renal disease) on dialysis ([facility]); Low hemoglobin; Chronic renal impairment, stage 4 (severe) ([facility]) Start: 10-21-2023 End: 10-21-2023 ambulatory BRANDON BOB [facility] Start: 10-04-2023 End: 10-04-2023 Office outpatient visit 25 minutes Glenna Salazar PA-C Work Phone: [facility] Comment on above: Positive occult stoo l blood test (Primary Dx); Colon cancer screening Start: 10-04-2023 End: 10-04-2023 ambulatory GLENNA SALAZAR [facility] Start: 09-26-2023 End: 09-26-2023 ambulatory ELAINE HUGGINS Not Available Start: 09-19-2023 End: 10-10-2023 ambulatory ANDRE GRAVES [facility] Start: 08-30-2023 End: 08-30-2023 Orders Only [facility] Comment on above: Low hemoglobin (Prim jayesh Dx); Anemia of chronic disease; Personal history of DVT (deep vein thrombosis); Chronic renal impairment, stage 4 (severe) [facility] Start: 08-16-2023 End: 08-16-2023 ambulatory TODD GEORGE [facility] Start: 08-02-2023 End: 08-02-2023 Telephone encounter rKystin Salcedo MD Work Phone: [facility] Start: 08-01-2023 End: 08-01-2023 Postop follow up visit related to original px Krystin Salcedo MD Work Phone: [facility] Comment on above: Morbid obesity ([facility]) (Primary Dx); End stage renal disease ([facility]) Start: 08-01-2023 End: 08-01-2023 [facility] Start: 07-08-2023 End: 07-08-2023 ambulatory Fausto Vasquez MD Facility:[facility] Start: 06-18-2023 End: 06-18-2023 ambulatory RAJENDRA WISE [facility] Start: 06-14-2023 End: 06-14-2023 [facility] Start: 06-03-2023 End: 06-03-2023 ambulatory KRYSTIN Vega [facility] Start: 05-31-2023 End: 06-02-2023 ambulatory TODD GEORGE [facility] Start: 05-31-2023 End: 06-02-2023 ambulatory AMY PARI [facility] Start: 05-30-2023 End: 06-01-2023 ambulatory KRYSTIN Vega [facility] Start: 05-06-2023 Telephone encounter Ngozi Vogt [facility] Start: 05-02-2023 End: 05-02-2023 Postop follow up visit related to original px Krystin Salcedo MD Work Phone: [facility] Comment on above: Morbid obesity ([facility]) (Primary Dx); ESRD (end stage renal disease) ([facility]); Arteriovenous fistula stenosis, initial encounter ([facility]) Start: 04-01-2023 End: 04-01-2023 [facility] Start: 04-01-2023 End: 04-01-2023 Postop follow up visit related to original px Ziyad Muenster [employer]OVE FACTORY SEWER-WINK CUTTER OPERATOR Work Phone: [facility] Comment on above: ESRD (end stage edwin l disease) ([facility]) (Primary Dx); A-V fistula ([facility]) Start: 03-05-2023 Telephone encounter Elba Ramirez [facility] - [facility] Oncology Start: 02-19-2023 End: 02-19-2023 ambulatory Rosina Fink Facility:[facility] Start: 07-04-2022 End: 07-05-2022 ambulatory NARENDRANATH LAKSHMIPATHY [...] 02-21-2021 End: 02-21-2021 ambulatory Kendell Garcia Other [facility] [employer] Other Start: 02-21-2021 Telephone encounter Kendell Garcia [facility] Chief Science Officer Start: 01-24-2021 End: 01-24-2021 ambulatory Kendell Garcia Other [facility] [employer] Other Start: 01-24-2021 Office outpatient ne w 45 minutes Kendell Garcia [facility] Neuro[facility] Start: 08-22-2020 Telephone encounter José Lewis DPM Work Phone: Orthopaedics Comment on above: Question Start: 05-25-2020 End: 05-25-2020 Subsequent hospital visit by physician Mp Ornelas 1 Work Phone: Radiology Comment on above: Pain [R52] Start: 07-09-2018 End: 07-09-2018 Patient encounter procedure [facility] Start: 06-03-2018 End: 06-26-2018 Patient encounter procedure [facility] Facility:[facility] Procedures Date Procedure Procedure Detail Performing Clinician Start: 07-17-2024 NURSING COMMUNICATION M jayesh Tierney [employer] FA[employer] SEWER-WINK CUTTER OPERATOR Work Phone: Start: 07-17-2024 Other immobilization , pressure, and attention to wound Elidia Tierney [employer]OVE FACTORY SEWER-WINK CUTTER OPERATOR Work Phone: Start: 06-12-2024 NURSING COMMUNICATION M jayesh Tierney [employer]OVE FACTORY SEWER-WINK CUTTER OPERATOR Work Phone: Start: 06-02-2024 Mammography Elaine pittman AGRICULTURE INSTRUCTOR Work Phone: Start: 05-22-2024 End: 05-22-2024 TRANSFUSE RED BLOOD CELLS Becky Mathews [employer]OVE FACTORY SEWER-WINK CUTTER OPERATOR Start: 05-20-2024 Basic metabolic pane l calcium total Gamalu Joanne BROWN Work Phone: Start: 05-19-2024 Blood count hematocrit Todd Chen MD Work Phone: Start: 05-19-2024 Basic metabolic pane l calcium total Gamalu Joanne BROWN Work Phone: Start: 05-18-2024 HEMODIALYSIS INPATIENT Vidhit Yandy DO Work Phone: Start: 05-18-2024 Hepatitis b surf ant ibody hbsab Vidhit Yandy DO Work Phone: Start: 05-18-2024 Iaad ia hepatitis b surface antigen Vidhit Yandy DO Work Phone: Start: 05-18-2024 Basic metabolic pane l calcium total Zora Rubio MD Work Phone: Start: 05-17-2024 Assay of magnesium Magan Erwin MD Work Phone: Start: 05-17-2024 End: 05-17-2024 Natriuretic peptide Mir jeffries MD Work Phone: Start: 05-17-2024 Assay of ferritin Meghan Daniel MD Work Phone: Start: 05-17-2024 Gluc bld gluc mntr d ev cleared fda spec home use Meghan Daniel MD Work Phone: Start: 05-17-2024 Basic metabolic pane l calcium total Zora Rubio MD Work Phone: Start: 05-17-2024 Adult depression scr eening assessment Bertha Moreno RN Start: 05-17-2024 Ecg routine ecg w/le ast 12 lds trcg only w/o i&r Zora Rubio MD Work Phone: Start: 05-13-2024 End: 05-13-2024 NURSING COMMUNICATION Elidia Tierney [employer]OVE FACTORY SEWER -WINK CUTTER OPERATOR Work Phone: Start: 04-03-2024 NURSING COMMUNICATION Frieda Tierney [employer]OVE FACTORY SEWER-WINK CUTTER OPERATOR Work Phone: Start: 03-20-2024 NURSING COMMUNICATION Frieda Tierney [employer]OVE FACTORY SEWER-WINK CUTTER OPERATOR Work Phone: Start: 02-28-2024 NURSING COMMUNICATION Frieda Tierney [employer]OVE FACTORY SEWER-WINK CUTTER OPERATOR Work Phone: Start: 10-21-2023 Follow-up visit Follow-up BRANDON BOB Start: 05-30-2023 Adult depression scr eening assessment Krystin Salcedo MD Work Phone: Start: 05-28-2023 Mammography Cm Mathews AGRICULTURE INSTRUCTOR Work Phone: Start: 09-13-2022 Adult depression scr eening assessment Elba Hernandez Start: 05-25-2020 Radex foot complete minimum 3 views Quinten Lewis DPM Work Phone: Start: 01-25-2020 Lipid 1996 panel - S araceli or Plasma Xr 1 Work Phone: Start: 07-09-2018 DISCHARGE PATIENT MARTIN GONSALES Plan of Treatment Date Care Activity Detail Author Start: 2036 RSV Vaccine (1 - 1-dose 75+ series) RSV Vaccine (1 - 1-dose 75+ series) [facility] Start: 12-08-2028 Subsequent hospital visit by physician Kimi Jeffreys [facility] Comment on above: Chronic kidney disease (Primary Dx); Anemia; Multiple sclerosis (CMS-HCC); CKD (chronic kidney disease) Start: 06-02-2025 Screening for malignant neoplasm of breast Mammogram [facility] Start: 05-22-2025 Adult BMI Screening Adult BMI Screening [facility] Start: 05-22-2025 Tobacco Screening Tobacco Screening [facility] Start: 05-20-2025 Adult BMI Screening Adult BMI Screening [facility] Start: 05-17-2025 Depression Screening [facility] Start: 05-15-2025 Tobacco Screening Tobacco Screening [facility] Start: 05-13-2025 Tobacco Screening Tobacco Screening [facility] Start: 04-17-2025 Adult BMI Screening Adult BMI Screening [facility] Start: 04-03-2025 Tobacco Screening Tobacco Screening [facility] Start: 03-20-2025 Tobacco Screening Tobacco Screening [facility] Start: 03-12-2025 Adult BMI Screening Adult BMI Screening [facility] Start: 03-06-2025 Tobacco Screening Tobacco Screening [facility] Start: 03-05-2025 Adult BMI Screening Adult BMI Screening [facility] Start: 02-27-2025 Tobacco Screening Tobacco Screening [facility] Start: 02-18-2025 Tobacco Screening Tobacco Screening [facility] Start: 02-13-2025 Adult BMI Screening Adult BMI Screening [facility] Start: 02-13-2025 Tobacco Screening Tobacco Screening [facility] Start: 01-24-2025 Lipid panel Lipid Screening [facility] Start: 01-24-2025 LIPID SCREEN LIPID SCREEN [facility] Start: 01-20-2025 Adult BMI Screening Adult BMI Screening [facility] Start: 11-09-2024 Influenza vaccination [facility] Start: 10-21-2024 End: 10-21-2024 Patient encounter procedure 10/21/2024 1:30 PM EDT Office Visit TIAGO BLEDSOE [address] [place] [id number] Quinten Pfeiffer DO [address] [place] [id number] [facility] BLEDSOE Start: 10-20-2024 Adult BMI Screening Adult BMI Screening [facility] Start: 10-03-2024 Adult BMI Screening Adult BMI Screening [facility] Start: 10-03-2024 Tobacco Screening Tobacco Screening [facility] Start: 08-14-2024 End: 08-14-2024 Patient encounter procedure 08/14/2024 2:00 PM EDT Office Visit [facility] [address] [place] [address] Francine Garcia MD [address], [address] [address] Elidia Tierney, [employer]OVE FACTORY SEWER-WINK CUTTER OPERATOR [address] [place] [address] [facility] Start: 08-12-2024 End: 08-12-2024 Admission to same day surgery center 08/12/2024 10:00 AM EDT - 08/12/2024 10:45 AM EDT Surgery [facility] [address] [place] [address] Rajendra Wise MD [address] [facility] [address] [place] [address] COLONOSCOPY DIAGNOSTIC [95037 (CPT )] [facility] Comment on above: COLONOSCOPY DIAGNOSTIC [59673 (CPT )] Start: 08-12-2024 End: 08-12-2024 Colonoscopy flx dx w/collj spec when pfrmd COLONOSCOPY DIAGNOSTIC / SCREENING positive occult stool blood test 08/12/2024 10:00 AM EDT [facility] Start: 08-12-2024 Subsequent hospital visit by physician 08/12/2024 10:00 AM EDT Hospital Encounter [facility] [address] [place] [address] Rajendra Wise MD [address] [facility] [address] [place] [address] [facility] Start: 08-06-2024 End: 08-06-2024 Patient encounter procedure 08/06/2024 1:45 PM EDT Appointment [facility] [address] [place] [address] [facility] Start: 08-04-2024 End: 08-04-2024 Admission to establishment 08/04/2024 10:00 AM EDT Support Visit [facility] On [address] [phone] [facility] Start: 07-31-2024 Tobacco Screening Tobacco Screening [facility] Start: 07-30-2024 End: 07-30-2024 Patient encounter procedure 07/30/2024 1:30 PM EDT [facility] [facility] [place] [address] [place] [address] Angelique Mckinnon, [address] [place] [address] [facility] [place] Start: 07-27-2024 End: 07-27-2024 Patient encounter procedure 07/27/2024 1:45 PM EDT Office Visit [facility] [place] [address] [place] [address] Angelique Mckinnon, [address] [place] [address] [facility] Start: 07-27-2024 End: 07-27-2024 Telemedicine consultation with patient 07/27/2024 1:45 PM EDT Telemedicine [facility] [place] [address] [facility] [address] Angelique Mckinnon, [address] [place] [address] [facility] [place] Start: 07-20-2024 End: 07-20-2024 Patient encounter procedure 07/20/2024 2:30 PM EDT Appointment [facility] - Vascular [address] [place] [address] Braydon Rich MD [address], [address] [place] [address] [facility] - Vascular Start: 07-20-2024 End: 07-20-2025 US AV fistula Vas dialysis access duplex Vascular Ultrasound Routine Arteriovenous fistula stenosis, subsequent encounter MS (multiple sclerosis) ([facility]) ESRD (end stage renal disease) ([facility]) Expected: 07/20/2024 (Approximate), Expires: 07/20/2025 [facility] Work Phone: Comment on above: Expected: 07/20/2024 (Approximate), Expi res: 07/20/2025 Start: 07-17-2024 End: 07-17-2024 Patient encounter procedure 07/17/2024 1:00 PM EDT Office Visit [facility] [address] [place] [phone] Francine Garcia MD [address], [address] [address] Elidia Tierney, GLOVE FACTORY SEWER-WINK CUTTER OPERATOR [address] [place] [address] [facility] Start: 07-01-2024 End: 07-01-2024 Patient encounter procedure [facility] Comment on above: Arrived Start: 06-17-2024 Adult BMI Screening Adult BMI Screening [facility] Start: 06-17-2024 Tobacco Screening Tobacco Screening [facility] Start: 06-12-2024 End: 06-12-2024 Patient encounter procedure 06/12/2024 1:20 PM EDT Office Visit [facility] [address] [place] [address] Francine Garcia MD [address], [address] [address] Elidia Tierney, GLOVE FACTORY SEWER-WINK CUTTER OPERATOR [address] [place] [address] [facility] Start: 06-10-2024 End: 06-10-2024 Telemedicine consultation with patient [facility] Start: 06-10-2024 End: 06-10-2024 Patient encounter procedure 06/10/2024 8:30 AM EDT Office Visit [facility] [address] [place] [address] Helen Sharma, [address] , [address] [place] [address] [facility] Start: 06-04-2024 End: 06-04-2024 ambulatory 06/04/2024 12:00 PM EDT Infusion Marialuisa Ghotra [facility] - Medical Oncology [address] [place] [address] Marialuisa Ghotra [facility] - [facility] Oncology Start: 06-03-2024 End: 06-03-2025 Crossmatch RBC Crossmatch RBC Blood Bank Routine Anemia of chronic disease ESRD (end stage renal disease) on dialysis ([facility]) Low hemoglobin Expected: 06/03/2024 (Approximate), Expires: 06/03/2025 [facility] Comment on above: Expected: 06/03/2024 (Approximate), Expi res: 06/03/2025 Start: 06-03-2024 End: 06-03-2025 Type and screen(includes indirect lubna) Type and screen(includes indirect lubna) Blood Bank Routine Anemia of chronic disease ESRD (end stage renal disease) on dialysis ([facility]) Low hemoglobin Expected: 06/03/2024 (Approximate), Expires: 06/03/2025 [facility] Comment on above: Expected: 06/03/2024 (Approximate), Expi res: 06/03/2025 Start: 05-29-2024 Depression Screening Depression Screening [facility] Start: 05-27-2024 Screening for malignant neoplasm of breast Mammogram [facility] Start: 05-22-2024 End: 05-22-2024 ambulatory 05/22/2024 9:00 AM EDT Infusion Marialuisa Ghotra [facility] - Medical Oncology [address] [place] [phone] Marialuisa Ghotra [facility] - [facility] Start: 05-21-2024 End: 05-21-2025 Crossmatch RBC Crossmatch RBC Blood Bank Routine Anemia of chronic disease ESRD (end stage renal disease) on dialysis ([facility]) Low hemoglobin Chronic renal impairment, stage 4 (severe) ([facility]) Personal history of DVT (deep vein thrombosis) Expected: 05/21/2024 (Approximate), Expires: 05/21/2025 [facility] Comment on above: Expected: 05/21/2024 (Approximate), Expi res: 05/21/2025 Start: 05-21-2024 End: 05-21-2025 Type and screen(includes indirect lubna) Type and screen(includes indirect lubna) Blood Bank Routine Anemia of chronic disease ESRD (end stage renal disease) on dialysis ([facility]) Low hemoglobin Chronic renal impairment, stage 4 (severe) ([facility]) Personal history of DVT (deep vein thrombosis) Expected: 05/21/2024 (Approximate), Expires: 05/21/2025 [facility] Comment on above: Expected: 05/21/2024 (Approximate), Expi res: 05/21/2025 Start: 05-08-2024 End: 05-08-2024 Patient encounter procedure 05/08/2024 11:00 AM EST Office Visit [facility] [address] [place] [address] Francine Garcia MD [address], [address] [address] Elidia Tierney, GLOVE FACTORY SEWER-WINK CUTTER OPERATOR [address] [place] [address] [facility] Start: 05-02-2024 Adult BMI Screening Adult BMI Screening [facility] Start: 05-02-2024 Tobacco Screening Tobacco Screening [facility] Start: 05-01-2024 End: 05-01-2024 Patient encounter procedure 05/01/2024 11:00 AM EST Office Visit [facility] [address] [facility] [place] [phone] Francine Garcia MD 4 [facility], [address] [address] KelsyElidia martin, GLOVE FACTORY SEWER-WINK CUTTER OPERATOR [address] [place] [address] [facility] Start: 04-30-2024 End: 04-30-2024 Admission to same day surgery center 04/30/2024 7:30 AM EST - 04/30/2024 8:15 AM EST Surgery [facility] - Endoscopy [address] [place] [phone] Rajendra Wise MD [address] [address] COLONOSCOPY DIAGNOSTIC [78999 (CPT )] [facility] Endoscopy Comment on above: COLONOSCOPY DIAGNOSTIC [06924 (CPT )] Start: 04-30-2024 End: 04-30-2024 Colonoscopy flx dx w/collj spec when pfrmd COLONOSCOPY DIAGNOSTIC / SCREENING POSITIVE OCCULT STOOL BLOOD TEST 04/30/2024 7:30 AM EST [place] [facility] Start: 04-30-2024 Subsequent hospital visit by physician 04/30/2024 7:30 AM EST Hospital Encounter [facility] - Endoscopy [address] [place] [phone] Rajendra Wise MD [address] [address] [facility] Endoscopy Start: 04-23-2024 End: 04-23-2024 Patient encounter procedure 04/23/2024 1:30 PM EST Office Visit Marialuisa Villegas [facility] - Medical Oncology [address] [place] [address] Andre Graves MD [address] [facility] [address] [place] [address] [facility] Start: 04-16-2024 End: 04-16-2024 Admission to establishment 04/16/2024 9:30 AM EST Support Visit [facility] Pre-Admission Clinic On [facility] [address] [place] [address] [facility] Start: 04-03-2024 End: 04-03-2024 Patient encounter procedure 04/03/2024 9:00 AM EST Office Visit [facility] [address] [place] [phone] Francine Garcia MD [address], [address] [address] Elidia Tierney, GLOVE FACTORY SEWER-WINK CUTTER OPERATOR [address] [place] [address] [facility] Start: 03-30-2024 End: 03-30-2024 Admission to same day surgery center 03/30/2024 9:15 AM EST - 03/30/2024 10:00 AM EST Surgery [facility] - Surgery [address] [place] [address] Kristine Murphy MD [address] [place] [phone] DEBRIDEMENT THIGH/KNEE/CALF [facility] - Surgery Comment on above: DEBRIDEMENT THIGH/KNEE/CALF Start: 03-30-2024 End: 03-30-2024 Anesthesia consultation 03/30/2024 9:15 AM EST Anesthesia Event [facility] - Surgery [address] [place] [address] Yusuf Garcia, DO [address] [facility] [place] [address] [facility] Surgery Start: 03-30-2024 End: 03-30-2024 DEBRIDEMENT THIGH/KNEE/CALF DEBRIDEMENT THIGH/KNEE/CALF right leg wound 03/30/2024 9:[address] [facility] Start: 03-30-2024 Subsequent hospital visit by physician 03/30/2024 9:15 AM EST Hospital Encounter [facility] Surgery [address] [place] [address] Kristine Murphy MD [address] [place] [phone] [facility] Start: 03-20-2024 End: 03-20-2024 Patient encounter procedure 03/20/2024 1:20 PM EST Office Visit [facility] [address] [place] [phone] Francine Garcia MD [address], [address] [address] Elidia Tierney, GLOVE FACTORY SEWER-WINK CUTTER OPERATOR [address] [place] [address] [facility] Start: 03-16-2024 End: 03-16-2024 Admission to same day surgery center 03/16/2024 9:45 AM EST - 03/16/2024 10:30 AM EST Surgery [facility] Surgery [address] [place] [address] Kristine Murphy MD [address] [place] [address] DEBRIDEMENT THIGH/KNEE/CALF [facility] Comment on above: DEBRIDEMENT THIGH/KNEE/CALF Start: 03-16-2024 End: 03-16-2024 Anesthesia consultation 03/16/2024 9:45 AM EST Anesthesia Event [facility] - Surgery [address] [place] [address] Yusuf Garcia, DO [address] [place] [address] [facility] - Surgery Start: 03-16-2024 End: 03-16-2024 DEBRIDEMENT THIGH/KNEE/CALF DEBRIDEMENT THIGH/KNEE/CALF right leg wound 03/16/2024 9:[address] [facility] Start: 03-16-2024 Subsequent hospital visit by physician 03/16/2024 9:45 AM EST Hospital Encounter [facility] Surgery [address] [place] [phone] Kristine Murphy MD [address] [place] [address] [facility] - Surgery Start: 03-13-2024 End: 03-13-2024 ambulatory [facility] - Pre Admit Comment on above: Preop examination (Primary Dx); Hypertension, unspecified type; Chronic renal impairment, stage 4 (severe) ([facility]); BMI 45.0-49.9, adult ([facility]) Start: 03-05-2024 End: 03-05-2024 Patient encounter procedure 03/05/2024 10:30 AM EST Office Visit [facility] [address] [place] [address] Kristine Murphy MD [address] [place] [address] [facility] General Surgery Start: 03-03-2024 End: 03-03-2024 Patient encounter procedure 03/03/2024 10:00 AM EST Office Visit [facility] General Surgery [address] [place] [phone] Kristine Murphy MD [address] [place] [address] [facility] General Surgery Start: 03-02-2024 End: 03-02-2024 Patient encounter procedure [facility] - Vascular Start: 02-28-2024 End: 02-28-2024 Patient encounter procedure 02/28/2024 2:40 PM EST Office Visit [facility] Care [facility] [address] [place] [address] Francine Garcia MD [address], [address] [address] Elidia Tierney, GLOVE FACTORY SEWER-WINK CUTTER OPERATOR [address] [place] [address] [facility] Start: 02-26-2024 Adult BMI Screening Adult BMI Screening [facility] Start: 02-26-2024 Tobacco Screening Tobacco Screening [facility] Start: 02-19-2024 End: 02-19-2024 Patient encounter procedure 02/19/2024 2:40 PM EST [facility] [address] [place] [address] Elaine Huggins NP [address] [place] [phone] [facility] Start: 02-19-2024 End: 02-19-2024 Admission to same day surgery center 02/19/2024 10:00 AM EST - 02/19/2024 11:00 AM EST Surgery [facility] - Endoscopy [address] [place] [address] Rajendra Wise MD [address] [address] COLONOSCOPY DIAGNOSTIC [93267 (CPT )] [facility] Endoscopy Comment on above: COLONOSCOPY DIAGNOSTIC [02623 (CPT )] Start: 02-19-2024 End: 02-19-2024 Colonoscopy flx dx w/collj spec when pfrmd COLONOSCOPY DIAGNOSTIC / SCREENING POSITIVE OCCULT STOOL, BLOOD TEST, COLON CANCER SCREENING 02/19/2024 10:00 AM EST [place] [facility] Start: 02-19-2024 Subsequent hospital visit by physician 02/19/2024 10:00 AM EST Hospital Encounter [facility] - Endoscopy [address] [place] [address] Rajendra Wise MD [address] [address] [facility] - Endoscopy Start: 02-14-2024 End: 02-13-2025 US.doppler Extremity arteries - bilateral for physiologic artery study Vas art doppler lwr bilat mult lev/PVR Vascular Ultrasound Routine Decreased pedal pulses Expected: 02/14/2024, Expires: 02/13/2025 [facility] Comment on above: Expected: 02/14/2024, Expires: Start: 02-14-2024 End: 02-13-2025 US.doppler Lower extremity vein - bilateral Vas venous duplex insufficiency lwr bi Vascular Ultrasound Routine Lymphedema Expected: 02/14/2024, Expires: 02/13/2025 [facility] Comment on above: Expected: 02/14/2024, Expires: Start: 02-14-2024 End: 02-13-2025 XR Tibia and Fibula - right 2 Views X-ray tibia fibula right minimum 2 views Imaging Routine Pressure injury of right calf, stage 3 (CMS-HCC) Expected: 02/14/2024, Expires: 02/13/2025 [facility] Work Phone: Comment on above: Expected: 02/14/2024, Expires: Start: 02-14-2024 End: 02-14-2024 Patient encounter procedure 02/14/2024 11:00 AM EST Office Visit [facility] [address] [place] [address] Francine Garcia MD [address], [address] [address] Elidia Tierney, GLOVE FACTORY [facility] [address] [place] [address] [facility] Start: 02-10-2024 End: 02-10-2024 Admission to same day surgery center 02/10/2024 10:00 AM EST - 02/10/2024 10:36 AM EST Surgery [facility] - Endoscopy [address] [place] [address] Rajendra Wise MD [address] [address] COLONOSCOPY DIAGNOSTIC / [33179 (CPT )] [facility] - Endoscopy Comment on above: COLONOSCOPY DIAGNOSTIC / [21310 (CPT )] Start: 02-10-2024 End: 02-10-2024 Colonoscopy flx dx w/collj spec when pfrmd COLONOSCOPY DIAGNOSTIC / SCREENING POSITIVE OCCULT STOOL, BLOOD TEST, COLON CANCER SCREENING 02/10/2024 10:00 AM [facility] ENDOS[facility] Start: 02-10-2024 Subsequent hospital visit by physician 02/10/2024 10:00 AM EST Hospital Encounter [facility] - Endoscopy [address] [place] [address] Rajendra Wise MD [address] [address] [facility] - Endoscopy Start: 02-05-2024 End: 02-05-2024 Admission to establishment 02/05/2024 2:15 PM EST Support Visit [facility] Pre-Admission Clinic On [address] [address] [facility] Start: 01-27-2024 End: 01-27-2024 Admission to establishment 01/27/2024 2:15 PM EST [facility] On [address] [address] [facility] On [facility] Start: 01-21-2024 End: 01-21-2024 Patient encounter procedure 01/21/2024 1:30 PM EST Office Visit [facility] [address] [place] [address] Braydon Rich MD [address] [facility], [address] [place] [address] [facility] Start: 01-16-2024 End: 01-16-2024 Admission to same day surgery center 01/16/2024 7:30 AM EST - 01/16/2024 8:15 AM EST Surgery [facility] - Endoscopy [address] [place] [address] Rajendra Wise MD [address] [address] COLONOSCOPY DIAGNOSTIC / [24727 (CPT )] [facility] - Endoscopy Comment on above: COLONOSCOPY DIAGNOSTIC / [33310 (CPT )] Start: 01-16-2024 End: 01-16-2024 Colonoscopy flx dx w/collj spec when pfrmd COLONOSCOPY DIAGNOSTIC / SCREENING POSITIVE OCCULT STOOL, BLOOD TEST, COLON CANCER SCREENING 01/16/2024 7:30 AM EST [facility] Start: 01-16-2024 Subsequent hospital visit by physician 01/16/2024 7:30 AM EST Hospital Encounter [facility] Endoscopy [address] [place] [address] Rajendra Wise MD [address] [address] [facility] - Endoscopy Start: 01-02-2024 End: 01-02-2024 Admission to establishment 01/02/2024 2:15 PM EDT Support Visit [facility] Pre-Admission Clinic On [address] [address] [facility] Pre-Admission Clinic On [facility] Start: 11-26-2023 End: 11-25-2024 CBC panel - Blood by Automated count CBC Lab Routine Encounter for medication monitoring Expected: 11/26/2023 (Approximate), Expires: 11/25/2024 [facility] Work Phone: Comment on above: Expected: 11/26/2023 (Approximate), Expi res: 11/25/2024 Start: 11-19-2023 End: 11-19-2023 Patient encounter procedure [facility] [address] [facility] Comment on above: [facility] Start: 11-10-2023 Covid-19 Vaccine ( season) Covid-19 Vaccine ( season) [facility] Start: 11-10-2023 COVID-19 Vaccine ( season) COVID-19 Vaccine ( season) [facility] Start: 11-10-2023 COVID-19 Vaccine ( season) COVID-19 Vaccine ( season) [facility] Start: 11-10-2023 Influenza vaccination [facility] Start: 10-21-2023 End: 10-21-2023 Patient encounter procedure 10/21/2023 11:30 AM EDT Office [facility] [address] [place] [address] Brandon Bob APRN-WINK CUTTER OPERATOR [address] [facility], [address] [place] [address] Marialuisamarilu Montenegron [facility] - Medical Oncology Start: 10-04-2023 End: 10-04-2023 Patient encounter procedure 10/04/2023 10:30 AM EDT Office Visit [facility] [address] [place] [address] [address] [place] [address] Glenna Salazar PA-C [address] [place] [address], [address] [place] [address] [facility] Digestive [facility] Start: 09-23-2023 End: 09-23-2023 Patient encounter procedure 09/23/2023 10:00 AM EDT Office Visit Marialuisa Montenegron [facility] - Medical Oncology [address] [place] [address] Brandon Bob APRN-WINK CUTTER OPERATOR [facility]8 [facility], [address] [place] [address] Marialuisa L Brandin [facility] Medical Oncology Start: 09-19-2023 End: 09-19-2023 Patient encounter procedure 09/19/2023 10:30 AM EDT Office Visit Marialuisa L Brandin [facility] - Medical Oncology [address] [place] [address] Andre Graves MD [address] [place] [address] [address] [place] [address] Marialuisa Ghotra [facility] - Medical Oncology Start: 09-16-2023 Screening for malignant neoplasm of colon [facility] Start: 09-14-2023 Depression Screening Depression Screening [facility] Start: 07-26-2023 Diabetes Screening Diabetes Screening [facility] Start: 06-10-2023 End: 06-10-2023 Patient encounter procedure 06/10/2023 10:00 AM EDT Appointment [facility] Interventional Radiology [address] [place] [phone] Krystin Salcedo MD [address] [place] [address], [address] [place] [address] [facility] Interventional Radiology Start: 05-09-2023 End: 05-09-2023 Patient encounter procedure 05/09/2023 1:30 PM EST Office Visit [facility] [address] [facility] [address] [place] [address] Ivette Sanchez, GLOVE FACTORY SEWER-WINK CUTTER OPERATOR [address] [facility] [address] [place] [address] [facility] Start: 05-06-2023 End: 05-06-2023 Patient encounter procedure 05/06/2023 1:45 PM EST Office Visit [facility] [address] [facility] [address] [place] [address] Gretta Stuart, GLOVE FACTORY SEWER-WINK CUTTER OPERATOR [address] [address] [facility] Start: 05-02-2023 End: 05-02-2024 RFA Lower extremity vessels - left Views W contrast IR angiography extremity left Imaging Routine Morbid obesity ([facility]) ESRD (end stage renal disease) ([facility]) Arteriovenous fistula stenosis, initial encounter ([facility]) Expected: 05/02/2023, Expires: 05/02/2024 [facility] Work Phone: Comment on above: Expected: 05/02/2023, Expires: Start: 04-08-2023 End: 03-31-2024 US AV fistula Vas dialysis access duplex Vascular Ultrasound Routine ESRD (end stage renal disease) ([facility]) A-V fistula ([facility]) Expected: 04/08/2023 (Approximate), Expires: 03/31/2024 [facility] Work Phone: Comment on above: Expected: 04/08/2023 (Approximate), Expi res: 03/31/2024 Start: 03-25-2023 End: 03-25-2023 Patient encounter procedure 03/25/2023 2:10 PM EST Office Visit [facility] [address] [place] [address] Braydon Rich MD [address] [place] [address], [address] [place] [address] 684- [facility] Start: 11-09-2022 COVID-19 Vaccine ( season) COVID-19 Vaccine ( season) [facility] Start: 11-09-2022 Influenza vaccination [facility] Start: 11-09-2021 Influenza vaccination INFLUENZA (Season Ended) [facility] Start: 02-18-2021 Urine screening for protein Diabetes: Urine Protein Screening [facility] Start: 08-28-2020 COVID-19 VACCINE (3 - Booster for Pfizer series) COVID-19 VACCINE (3 - Booster for Pfizer series) [facility] Start: 09-26-2018 Hemoglobin A1c measurement Diabetes: Hemoglobin A1C [facility] Start: 05-25-2017 DIABETES SCREEN DIABETES SCREEN [facility] Start: 10-26-2011 Administration of varicella zoster vaccine Zoster (Shingles) Vaccine (1 of 2) [facility] Start: 10-26-2011 SHINGRIX VACCINE (1 of 2) SHINGRIX VACCINE (1 of 2) [facility] Start: 2006 COLOGUARD (FIT-DNA) COLOGUARD (FIT-DNA) [facility] Start: 2006 Colonoscopy COLONOSCOPY [facility] Start: 2006 COLORECTAL CANCER SCREENING COLORECTAL CANCER SCREENING [facility] Start: [address] COLONOGRAPHY [facility] Start: 2006 FECAL OCCULT BLOOD FECAL OCCULT BLOOD [facility] Start: 2006 Screening for malignant neoplasm of colon [facility] Start: 2006 SIGMOIDOSCOPY SIGMOIDOSCOPY [facility] Start: 2001 Mammography MAMMOGRAM [facility] Start: 2001 Screening for malignant neoplasm of breast Mammogram Screening [facility] Start: 10-26-1991 HPV TESTING HPV TESTING [facility] Start: 10-26-1991 Screening for malignant neoplasm of cervix [facility] Start: 1982 PAP TESTING PAP TESTING [facility] Start: 1982 Screening for malignant neoplasm of cervix [facility] Start: 1980 DTaP,Tdap and Td Vaccines (1 - Tdap) DTaP,Tdap and Td Vaccines (1 - Tdap) [facility] Start: 1980 Urine microalbumin profile [facility] Start: 10-26-1979 Adult BMI Follow Up Plan Adult BMI Follow Up Plan [facility] Start: 10-26-1979 Anxiety Screening Anxiety Screening [facility] Start: 10-26-1979 Depression Screening Depression Screening [facility] Start: 10-26-1979 Diabetic foot examination Diabetic Foot Exam [facility] Start: 10-26-1979 HEPATITIS C SCREENING HEPATITIS C SCREENING [facility] Start: 10-26-1979 Hepatitis C screening Hepatitis C Screening [facility] Start: 10-26-1979 HIV SCREENING HIV SCREENING [facility] Start: 10-26-1979 HIV screening HIV Screening [facility] Start: 1973 Adult depression screening assessment DEPRESSION SCREENING [facility] Start: 10-26-1971 Glaucoma screening Diabetes: Retinopathy Screening [facility] Start: 1961 Glaucoma screening Diabetic Ophthalmology Exam [facility] Start: 1961 Medicare Annual Wellness (AWV) Medicare Annual Wellness (AWV) [facility] Start: 1961 Screening for malignant neoplasm of colon [facility] End: 03-05-2025 Basic metabolic 2000 panel - Serum or Plasma Basic Metabolic Panel Lab Routine Pressure injury of right calf, stage 3 (CMS-HCC) 1 Occurrences starting 03/05/2024 until 03/05/2025 [employer] Comment on above: 1 Occurrences starting 03/05/2024 until 03/05/2025 Basic metabolic 2000 panel - Serum or Plasma Basic Metabolic Panel Lab Routine Lab max of 3 days, Daily, for lab use only until discontinued starting 05/17/2024, 4 completed [employer] Comment on above: Lab max of 3 days, Daily, for lab use on ly until discontinued starting 05/17/2024, 4 completed End: 08-29-2024 CBC W Auto Differential panel - Blood CBC auto differential Lab Routine Low hemoglobin Anemia of chronic disease Personal history of DVT (deep vein thrombosis) Chronic renal impairment, stage 4 (severe) ([facility]) 1 Occurrences starting 08/30/2023 until 08/29/2024 [employer]: Comment on above: 1 Occurrences starting 08/30/2023 until 08/29/2024 End: 10-20-2024 CBC W Auto Differential panel - Blood CBC auto differential Lab Routine Anemia of chronic disease Personal history of DVT (deep vein thrombosis) ESRD (end stage renal disease) on dialysis ([facility]) Low hemoglobin PRN for 3 Occurrences starting 10/21/2023 until 10/20/2024 [employer] Work Phone: Comment on above: PRN for 3 Occurrences starting until 10/20/2024 CBC W Auto Different ial panel - Blood CBC auto differential Lab Routine Lab max of 3 days, Daily, for lab use only until discontinued starting 05/17/2024, 4 completed [employer] Comment on above: Lab max of 3 days, Daily, for lab use on ly until discontinued starting 05/17/2024, 4 completed End: 10-03-2024 Colonoscopy Colonoscopy GI Routine Positive occult stool blood test Colon cancer screening 1 Occurrences starting 10/04/2023 until 10/03/2024 [employer] Phone: Comment on above: 1 Occurrences starting 10/04/2023 until 10/03/2024 End: 02-18-2025 Colonoscopy Colonoscopy GI Routine Positive occult stool blood test 1 Occurrences starting 02/19/2024 until 02/18/2025 [employer] Work Phone: Comment on above: 1 Occurrences starting 02/19/2024 until 02/18/2025 End: 03-06-2025 ECG 12 lead ECG 12 lead ECG Routine Preop examination Hypertension, unspecified type Chronic renal impairment, stage 4 (severe) ([facility]) BMI 45.0-49.9, adult ([facility]) 1 Occurrences starting 03/06/2024 until 03/06/2025 [employer] Work Phone: Comment on above: 1 Occurrences starting 03/06/2024 until 03/06/2025 End: 08-29-2024 [facility] Comment on above: 1 Occurrences starting 08/30/2023 until 08/29/2024 1 Occurrences starti ng 10/21/2023 until 08/29/2024 End: 08-29-2024 Ferritin [Mass/volume] in Serum or Plasma Ferritin Lab Routine Low hemoglobin Anemia of chronic disease Personal history of DVT (deep vein thrombosis) Chronic renal impairment, stage 4 (severe) ([facility]) 1 Occurrences starting 08/30/2023 until 08/29/2024 [employer] Comment on above: 1 Occurrences starting 08/30/2023 until 08/29/2024 End: 10-20-2024 Ferritin [Mass/volume] in Serum or Plasma Ferritin Lab Routine Anemia of chronic disease Personal history of DVT (deep vein thrombosis) ESRD (end stage renal disease) on dialysis ([facility]) Low hemoglobin PRN for 3 Occurrences starting 10/21/2023 until 10/20/2024 [employer] Comment on above: PRN for 3 Occurrences starting until 10/20/2024 End: 05-20-2024 Hemodialysis inpatient Hemodialysis inpatient Dialysis Routine Once for 1 Occurrences starting 05/20/2024 until 05/20/2024 [employer] Work Phone: Comment on above: Once for 1 Occurrences starting 05/21/19 until 05/20/2024 End: 08-29-2024 Iron and TIBC Iron and TIBC Lab Routine Low hemoglobin Anemia of chronic disease Personal history of DVT (deep vein thrombosis) Chronic renal impairment, stage 4 (severe) ([facility]) 1 Occurrences starting 08/30/2023 until 08/29/2024 [employer] Comment on above: 1 Occurrences starting 08/30/2023 until 08/29/2024 End: 10-20-2024 Iron and TIBC Iron and TIBC Lab Routine Anemia of chronic disease Personal history of DVT (deep vein thrombosis) ESRD (end stage renal disease) on dialysis ([facility]) Low hemoglobin PRN for 3 Occurrences starting 10/21/2023 until 10/20/2024 [employer] Comment on above: PRN for 3 Occurrences starting until 10/20/2024 Magnesium [Mass/volu me] in Serum or Plasma Magnesium Lab Routine Lab max of 3 days, Daily, for lab use only until discontinued starting 05/17/2024, 4 completed [employer] Comment on above: Lab max of 3 days, Daily, for lab use on ly until discontinued starting 05/17/2024, 4 completed Oxygen Therapy - Maintain SpO2: 90%; *CHEMICAL PROCESSOR Guidelines for O2: Yes; Document: \[email or web address]\ep ic\EPIC_Reference\Order s\Respiratory Care Guidelines\CPG Oxygen 2022.pdf Oxygen Therapy - Maintain SpO2: 90%; *CHEMICAL PROCESSOR Guidelines for O2: Yes; Document: \[email or web address]\ep ic\EPIC_Reference\Order s\Respiratory Care Guidelines\CPG Oxygen 2022.pdf Respiratory Care Routine As Needed until discontinued starting 05/16/2024 [employer] Comment on above: As Needed until discontinued starting Phosphate [Mass/volu me] in Serum or Plasma Phosphorus Lab Routine Lab max of 3 days, Daily, for lab use only until discontinued starting 05/17/2024, 4 completed [employer] Comment on above: Lab max of 3 days, Daily, for lab use on ly until discontinued starting 05/17/2024, 4 completed End: 05-16-2024 Pulse oximetry, spot On current oxygen flow Pulse oximetry, spot On current oxygen flow Respiratory Care Routine Once for 1 Occurrences starting 05/16/2024 until 05/16/2024 [employer] Work Phone: Comment on above: Once for 1 Occurrences starting 05/17/19 until 05/16/2024 Transfuse RBC:2 Units [employer] End: 03-05-2025 Unlisted Procedure / Surgery Unlisted Procedure / Surgery Procedures Routine Pressure injury of right calf, stage 3 (CMS-HCC) 1 Occurrences starting 03/05/2024 until 03/05/2025 [employer] Work Phone: Comment on above: 1 Occurrences starting 03/05/2024 until 03/05/2025 Immunizations Immunization Date Immunization Notes Care Provider Sandeep parra 11-03-2018 influenza, injectabl e, quadrivalent, preservative free [facility] 11-03-2018 influenza virus vaccine, unspecified formulation [facility] 10-14-2018 influenza, injectabl e, quadrivalent, preservative free [facility] 08-11-2018 influenza, injectabl e, quadrivalent, preservative free [facility] 12-22-2017 [facility]-09-[facility] influenza, injectabl e, quadrivalent, preservative free [facility] 12-09-2012 pneumococcal polysaccharide vaccine, 23 valent Quinten Lewis DPM Work Phone: [facility] Payers Date Payer Category Payer Self-pay [id number] 2023 Managed Care Other (unspecified) [facility] [id number] 2023 Medicare (Managed Care) [facility] [id number] 2023 Medicare HMO [id number] 2023 Private Health Insurance [facility] PLUS [id number] 2023-Present [phone] [address] [address] [place] [address] [id number] 2020 Medicaid MEDICAID [facility] MEDICAID [id number] 2020-Present [phone] [address] [place] [address] Medicaid [id number] 2017 Medicaid 2002 Medicare MEDICARE MEDICAR E A AND B [id number] 2002-Present [phone] [address] [address] [place] [address] Medicare [id number] 2002 Medicare 1961 Unknown [id number] 2.16.840.1.061045.3.579.2. 718 1961 Unknown [id number] 2.16.840.1.808324.3.579.2. 177 1961 Unknown [id number] 2.16.840.1.915295.3.579.2. 593 1961 Unknown [id number] 2.16.840.1.421233.3.579.2. 593 1961 Unknown [id number] 2.16.840.1.340154.3.579.2. 593 1961 Unknown [id number] 2.16.840.1.498646.3.579.2. 593 1961 Unknown [id number] 2.16.840.1.509270.3.579.2. 593 1961 Unknown [id number] 2.16.840.1.354599.3.579.2. 593 1961 Unknown [id number] 2.16.840.1.844489.3.579.2. 593 1961 Unknown [id number] 2.16.840.1.737678.3.579.2. 593 1961 Unknown [id number] 2.16.840.1.278784.3.579.2. 593 1961 Unknown [id number] 2.16.840.1.198670.3.579.2. 593 1961 Unknown [id number] 2.16.840.1.365825.3.579.2. 593 1961 Unknown [id number] 2.16.840.1.893250.3.579.2. 196 1961 Unknown [id number] 2.16.840.1.021612.3.579.2. 196 1961 Unknown [id number] 2.16.840.1.140327.3.579.2. 1286 1961 Unknown [id number] 2.16.840.1.946609.3.579.2. 1286 1961 Unknown [id number] 2.16.840.1.305212.3.579.2. 1286 1961 Unknown [id number] 2.16.840.1.446305.3.579.2. 1286 1961 Unknown [id number] 2.16.840.1.705232.3.579.2. 1286 1961 Unknown [id number] 2.16.840.1.443606.3.579.2. 128 1961 Unknown [id number] 2.16.840.1.317187.3.579.2. 1286 1961 Unknown [id number] 2.16.840.1.420490.3.579.2. 1285 1961 Unknown [id number] 2.16.840.1.180575.3.579.2. 128 1961 Unknown [id number] 2.16.840.1.001135.3.579.2. 128 1961 Unknown [id number] 2.16.840.1.632606.3.579.2. 1285 1961 Unknown [id number] 2.16.840.1.859913.3.579.2. 1285 1961 Unknown [id number] 2.16.840.1.530268.3.579.2. 1285 1961 Unknown [id number] 2.16.840.1.582069.3.579.2. 128 1961 Unknown [id number] 2.16.840.1.578253.3.579.2. 1285 1961 Unknown [id number] 2.16.840.1.783437.3.579.2. 1285 1961 Unknown [id number] 2.16.840.1.775315.3.579.2. 1285 1961 Unknown [id number] 2.16.840.1.771323.3.579.2. 128 1961 Unknown [id number] 2.16.840.1.937879.3.579.2. 1259 1961 Unknown [id number] 2.16.840.1.751314.3.579.2. 1259 1961 Unknown [id number] 2.16.840.1.403877.3.579.2. 1259 1961 Unknown [id number] 2.16.840.1.111264.3.579.2. 1259 1961 Unknown [id number] 2.16.840.1.701676.3.579.2. 128 1961 Unknown [id number] 2.16.840.1.356773.3.579.2. 1285 1961 Unknown [id number] 2..840.1.536032.3.579.2. 128 1961 Unknown [id number] 2..840.1.228568.3.579.2. 128 1961 Unknown [id number] 2..840.1.942673.3.579.2. 1285 1961 Unknown [id number] 2.840.1.053951.3.579.2. 1285 1961 Unknown [id number] 2..840.1.982638.3.579.2. 1285 1961 Unknown [id number] 2..840.1.900243.3.579.2. 1285 1961 Unknown [id number] 2..840.1.780905.3.579.2. 1285 1961 Unknown [id number] 2..840.1.651107.3.579.2. 1285 1961 Unknown [id number] 2..840.1.900675.3.579.2. 128 1961 Unknown [id number] 2..840.1.794549.3.579.2. 1285 1961 Unknown [id number] 2.16.840.1.327846.3.579.2. 1285 1961 Unknown [id number] 2.16.840.1.694500.3.579.2. 1285 1961 Unknown [id number] 2.16.840.1.041829.3.579.2. 1286 1961 Unknown [id number] 2.16.840.1.538857.3.579.2. 1286 1959 Medicaid [id number] 1959 Medicare [id number] 1959 Medicare [id number] Private Health [facility] [id number] Unknown [id number] 2.16.840.1.876611.3.579.2. 531 Social History Date Type Detail Facility Start: 03-27-2013 End: 09-13-2022 Tobacco smoking status NHIS Never smoked tobacco [facility] Start: 03-27-2013 End: 09-13-2022 Tobacco use and exposure Smokeless tobacco non-user [facility] Start: 05-05-2014 Alcohol intake Current drinke r of alcohol (finding) [facility] Start: 03-27-2013 History SDOH Alcohol Comment Occasional [facility] Start: 1960 Sex Assigned At Not on file [facility] Start: 04-25-2020 End: 07-27-2020 Exposure to SARS-CoV-2 (event) Not sure [facility] Start: 03-22-2020 End: 05-25-2020 Sex Assigned At [facility] [employer] Other Start: 1960 Sex Assigned At Female F [facility] Start: 03-22-2020 End: 05-25-2020 History of Social function [facility] National Score (1-100), lower number is lower risk Not on file [facility] Start: 10-13-2023 End: 02-19-2024 Alcoholic beverage intake Lifetime non-drinker (finding) [facility] Start: 02-28-2024 End: 07-17-2024 Alcoholic beverage intake Ex-drinker (finding) [facility] Has the [employer], or water [employer] threatened to shut off services in your home in past 12Mo No [employer] [facility] How often to you hav e a drink containing alcohol? Monthly or less [facility] How many standard drinks containing alcohol do you have on a typical day? 1 or 2 [facility] How often do you hav e 6 or more drinks on 1 occasion? Never [facility] Start: 05-30-2023 Alcohol Comment rare [facility] Start: 10-14-2014 Sex Female (finding) [facility] Medical Equipment Procedure Code Equipment Code Equipment Origin al Text Equipment Identifier Dates Graft Bn Canc 30 ml Allgrft - [id number]_[facility] Start: 05-20-2014 Comment on above: Description: GRAFT B ONE CANC. Azw-Zl-K-Kind Implant - [id number] Start: 10-01-2013 Comment on above: Description: Glenis underwood Spiral Blade Tps-Pf-R-Kind Implant - [id number]_[facility] Start: 05-20-2014 Comment on above: Description: 4.5 mm VA-LCP plate, C1713 PLATE Ger-Sj-Y-Kind Implant - [id number]_[facility] Start: 05-20-2014 Comment on above: Description: 5.0 x 3 4mm locking screw, C1713 SCREW Rli-Mi-M-Kind Implant - [id number]_[facility] Start: 05-20-2014 Comment on above: Description: 5.0 mm x 60mm locking screw, C1713 Hfs-Ev-G-Kind Implant - [id number] Start: 05-20-2014 Comment on above: Description: 5.0 mm x 65mm locking screw, C1713 SCREW Gnd-Jx-Q-Kind Implant - [id number]_[facility] Start: 05-20-2014 Comment on above: Description: 5.0 mm x 70 mm locking screw, C1713 SCREW Nail 12mm 380mm Fem Nlex Im - [id number] Start: 10-01-2013 Comment on above: Description: C1713 N AIL 12MM 380MM FEM NLEX IM Cap End 0mm Fem Ext Strdr Rcs - [id number] Start: 10-01-2013 Screw Bn 5mm 44m m Nlex Ti Ft - [id number] Start: 10-01-2013 Screw Bn 5mm 40m m Nlex Ti Ft - [id number] Start: 10-01-2013 Screw Bn 5mm 66m m Nlex Ti Fem - [id number] Start: 10-01-2013 Comment on above: Description: C1713 S CREW BN 5MM 66MM NLEX TI FEM Screw Bn 4.5mm 40mm Lcp Ss - [id number] Start: 05-20-2014 Screw Bn 4.5mm 42mm Lcp Ss - [id number] Start: 05-20-2014 Screw Bn 4.5mm 46mm Lcp Ss - [id number] Start: 05-20-2014 Screw Bn 4.5mm 32mm Lcp Ss - [id number] Start: 05-20-2014 Screw Bn 4.5mm 34mm Lcp Ss - [id number] Start: 05-20-2014 Screw Bn 4.5mm 36mm Lcp Ss - [id number] Start: 05-20-2014 Screw Bn 4.5mm 38mm Lc Dcp Dhs - [id number] Start: 05-20-2014 Set Cth 24cm 14f r 18ga Str Triniflex Splt3 Bsc Intro Ndl Gw Rpl [id number] - [id number])[id number] 670, [id number] [facility] Start: 09-07-2022 Goals Date Patient Goal Desired Activity /State Personal health goal Comment on above: Formatting of this n ote might be different from the original. Evaluation of progress towards goal: return to [place] Personal health goal Personal health goal Functional Status Date Assessment Result Facility [facility] Clinical Notes 07-28-2020 to 07-17-2024 Elidia Tierney, [employer]TER OPERATOR - 07/17/2024 1:00 PM EDTPatient InstructionsTelephone Encounter - Cm Mathews NP - 07/02/2024 12:29 AM EDTTelephone Encounter - Cm Mathews NP - 07/02/2024 12:29 AM EDT Note Date & Type Note Facility 07-17-2024 History of Present illness Narrative Associated Order(s): Debridement Post-Procedure Diagnose(s): Lymphedema; Pressure injury of right calf, stage 3 (CMS-HCC); ISTAP type 3 skin tear of plantar aspect of left foot Images from the original note were not included. Wound Care Progress Note Patient: Donna Mathews Date of : 1960 Chief Complaint: Bilateral lower leg wounds, follow up Presents with new wounds, dorsal right foot SUBJECTIVE/HPI: Donna is a 63 y.o. female who presents to [facility] for evaluation of 3 ulcer(s) converted to two ulcer on the right lateral leg and dorsal right foot. Patient established with wound clinic on 02/14/2024. Current daily wound care includes: medi honey, copper alginate and PolyMem foam. Patient reports wounds are changed daily by nursing facility. Patient states the skin tear of her right foot is a result of a traumatic incident in the nursing facility. It is noted she also has an ecchymotic area of the right medial ankle/ Legs abduct while she is sitting in the power chair, legs continue to rest on the support bars. Patient is a resident of a [facility]. Measurable wound changes: Decreased wound measurements #2. Increased wound measurement #1. New wound 1.0 cm increase in left calf circumference. Patient accompanied by: caregiver, patient arrives in a new power wheelchair. Nutritional screen shows patient does take in three servings of protein per day. Patient does deny fever, chills, sweats, or other signs of infection. Prescribed antibiotics: none Today's reported Blood Sugar:N/A Lab Results Component Value Date HGBA1C 5.5 09/14/2022 HGBA1C 5.7 08/21/2021 Tobacco use: denied - never a smoker Contributing comorbid conditions: MS, nonambulatory, wheelchair dependent, end-stage renal disease, dialysis dependent Labs/Imaging/Cardiovascular: Patient's chart was reviewed for all available supporting documentation, laboratory results and radiographic examination. Patient Active Problem List Diagnosis Personal history of DVT (deep vein thrombosis) Closed fracture of femur with nonunion Charcot's arthropathy Anemia of chronic disease Chronic renal impairment, stage 4 (severe) ([facility]) End stage renal disease ([facility]) ESRD (end stage renal disease) ([facility]) Family history of MS (multiple sclerosis) Chronic indwelling Douglas catheter Leukocytosis Morbid obesity ([facility]) MS (multiple sclerosis) ([facility]) Traumatic ulcer of left lower extremity with fat layer exposed ([facility]) Traumatic ulcer of right lower extremity with fat layer exposed ([facility]) Dermatitis associated with moisture Lymphedema AV fistula stenosis Pseudoaneurysm following procedure Anxiety and depression Carpal tunnel syndrome Chronic back pain Congenital pes planus DDD (degenerative disc disease), lumbar Disturbance of skin sensation Enthesopathy of hip region Facet arthritis of lumbar region Lack of coordination Neurogenic bladder Numbness Osteoporosis Pain in limb Peripheral neuropathy Polyneuropathy Radicular pain Radiculopathy, lumbosacral region Ulnar nerve abnormality Chronic fatigue Debility Pressure injury of right calf, stage 3 ([facility]) Wound infection Hyperkalemia Pressure ulcer of sacral region, stage 3 ([facility]) Pressure injury of deep tissue of left calf Acquired arteriovenous fistula Past Medical History: Diagnosis Date Anemia Anemia of chronic disease 08/30/[address] fistula stenosis ([facility]) 04/01/2023 Charcot's arthropathy 03/27/2013 Charcot's joint CHF (congestive heart failure) ([facility]) Chronic indwelling Douglas catheter 09/13/2022 Chronic kidney disease Chronic renal impairment, stage 4 (severe) ([facility]) 08/30/2022 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 Deep vein thrombosis ([facility]) RLE Dermatitis associated with moisture 09/14/2022 Diabetes mellitus type 2, controlled ([facility]) Dialysis patient ([facility]) End stage renal disease ([facility]) 09/05/2022 ESRD (end stage renal disease) ([facility]) 09/13/2022 Family history of MS (multiple sclerosis) 09/13/2022 GERD (gastroesophageal reflux disease) Hyperlipidemia Hypertension Leukocytosis 09/13/2022 Lymphedema Morbid obesity ([facility]) 09/13/2022 MS (multiple sclerosis) ([facility]) 09/13/2022 Neuromuscular dysfunction of bladder Obesity Personal history of DVT (deep vein thrombosis) 09/29/2013 Positive occult stool blood test 04/17/2024 Stroke ([facility]) Tabes dorsalis Thrombocytopenia ([facility]) Traumatic ulcer of left lower extremity with fat layer exposed ([facility]) 09/14/2022 Traumatic ulcer of right lower extremity with fat layer exposed ([facility] [facility] [place] 09/14/2022 Past Surgical History: Procedure Laterality Date BARIATRIC SURGERY Catheter Placement N/A 09/07/2022 Performed by Angelique Mckinnon DO at [facility] CARDIAC CATH LABS CREATION ARTERIOVENOUS FISTULA UPPER EXTREMITY BRACHIAL CEPHALIC, EXPLORATION LEFT WRIST WITH REPAIR OF RADIAL ARTERY LEFT Left 10/31/2022 Performed by Braydon Rich MD at [facility] HEMODIALYSIS INPATIENT 05/31/2023 LIPECTOMY AVF Left 02/25/2023 Performed by Krystin Salcedo MD at [facility] Current Outpatient Medications Medication Sig Dispense Refill acetaminophen (TYLENOL) 325 mg tablet Take 2 tablets (650 mg total) by mouth every 8 (eight) hours Indications: pain. atorvastatin (LIPITOR) 80 mg tablet Take 1 tablet (80 mg total) by mouth once daily at bedtime. azelastine (ASTELIN) 137 mcg (0.1 %) nasal spray Administer 2 sprays into each nostril once daily at bedtime Indications: seasonal runny nose. Use in each nostril as directed B complex-vitamin C-folic acid (NEPHROCAP) 1 mg capsule Take 1 capsule by mouth in the morning. Give one tablet by mouth in the morning for ESRD. biotin 1 mg tablet Take 1 tablet (1 mg total) by mouth in the morning. bisacodyL (DULCOLAX) 5 mg EC tablet Take 1 tablet (5 mg total) by mouth daily as needed for constipation. 4 tablet 0 bisacodyL (DULCOLAX) 5 mg EC tablet Take 1 tablet (5 mg total) by mouth daily as needed for constipation. 2 tablet 0 calcium carbonate (OS-NAIMA) 500 mg elemental (1,250 mg) tablet Take 2 tablets (1,000 mg total) by mouth in the morning. Indications: low amount of calcium in the blood. carboxymethylcellulose (REFRESH TEARS) 1 % ophthalmic solution Administer 1 drop to both eyes in the morning. Indications: dry eye. carvediloL (COREG) 6.25 mg tablet Take 0.5 tablets (3.125 mg total) by mouth in the morning. cholecalciferol (VITAMIN D3) 1,000 units tablet Take 1 tablet (1,000 Units total) by mouth in the morning. 30 tablet 3 doxycycline (VIBRAMYCIN) 100 mg capsule ipratropium-albuteroL (DUONEB) 0.5 mg-3 mg(2.5 mg base)/3 mL nebulizer Inhale 3 mL by nebulization every 6 (six) hours as needed for wheezing or shortness of breath. lactulose (CHRONULAC) 10 gram/15 mL solution Take 45 mL (30 g total) by mouth daily as needed (constipation). LUTEIN ORAL Take 1 tablet by mouth in the morning. menthol (BIOFREEZE, MENTHOL,) 4 % gel Apply 1 Application topically every 8 (eight) hours as needed Indications: pain associated with arthritis, sprains and strains. midodrine (PROAMATINE) 10 mg tablet Take 1 tablet (10 mg total) by mouth 3 (three) times a day. midodrine (PROAMATINE) 5 mg tablet Take 1 tablet (5 mg total) by mouth daily as needed (if SBP < 100; do not exceed 40 mg/day). modafiniL (PROVIGIL) 100 mg tablet Take 1 tablet (100 mg total) by mouth in the morning. For MS. multivitamin with minerals tablet Take 1 tablet by mouth in the morning. Give one tablet by mouth in the afternoon for preventive . nut.tx.imp.renal fxn,lac-reduc (NEPRO CARB STEADY) 0.08 gram-1.8 kcal/mL liquid Take 237 fluid ounces by mouth daily after dinner. nystatin (MYCOSTATIN) powder Apply 1 Application topically as needed (As needed). Apply to under breast and folds topically as needed for dermatitis OXcarbazepine (TRILEPTAL) 300 mg tablet Take 1 tablet (300 mg total) by mouth in the morning and 1 tablet (300 mg total) before bedtime. For MS/neuropathy. oxycodone HCl (OXYCODONE ORAL) Take 5 mg by mouth every 6 (six) hours as needed (every 6 hours). Give one tablet as by mouth every 6 hours as needed for moderate to severe pain pantoprazole (PROTONIX) 40 mg EC tablet Take 1 tablet (40 mg total) by mouth in the morning and 1 tablet (40 mg total) in the evening. Take before meals. 60 tablet 3 polyethylene glycol (GLYCOLAX) 17 gram packet Take 17 g by mouth in the morning. Indications: constipation. In the afternoon . polyethylene glycol (GoLYTELY) 236-22.74-6.74 -5.86 gram solution Starting at noon on day prior to procedure, drink 8 ounces every 30 minutes until all gone or stools are clear. May add flavor packet. 4000 mL 0 pregabalin (LYRICA) 75 mg capsule Take 1 capsule (75 mg total) by mouth once daily at bedtime. Give 1 capsule by mouth at bed time for chronic pain EDWIN-LOLIS 0.8 mg tablet EDWIN-LOLIS RX 1-60-300 mg-mg-mcg tablet sennosides-docusate sodium (SENOKOT-S) 8.6-50 mg Take 1 tablet by mouth every 12 (twelve) hours as needed for constipation. sertraline (ZOLOFT) 25 mg tablet Take 2 tablets (50 mg total) by mouth in the morning. sevelamer (RENVELA) 800 mg tablet Take 1 tablet (800 mg total) by mouth in the morning and 1 tablet (800 mg total) at noon and 1 tablet (800 mg total) in the evening. Take with meals. 90 tablet 3 simethicone (MYLICON) 80 mg chewable tablet Chew 1 tablet (80 mg total) and swallow every 6 (six) hours as needed (indigestion). sodium zirconium cyclosilicate (LOKELMA) 10 gram packet Take 10 g by mouth 3 (three) times a week. 30 packet 3 trazodone HCl (TRAZODONE ORAL) Take 12.5 mg by mouth nightly. No current facility-administered medications for this visit. No Known Allergies Social Drivers of Health Food Insecurity: No Food Insecurity (06/12/2024) Hunger Screening Food Insecurity - Worry: Never True Food Insecurity - Inability: Never True Housing Instability: Low Risk (05/17/2024) Housing Instability Housing Instability: No Transportation Needs: No Transportation Needs (05/17/2024) PRAPARE - Transportation Lack of Transportation (Medical): No Lack of Transportation (Non-Medical): No Utility Difficulties: Not At Risk (05/17/2024) [facility] Utilities Threatened with loss of utilities: No Interpersonal Safety: Not At Risk (05/17/2024) Humiliation, Afraid, Rape, and Kick questionnaire Fear of Current or Ex-Partner: No Emotionally Abused: No Physically Abused: No Sexually Abused: No Financial Resource Strain: Low Risk (05/30/2023) Overall Financial Resource Strain (CARDIA) Difficulty of Paying Living Expenses: Not hard at all Childcare: Unknown (08/15/2018) Childcare Childcare: Unknown Recent Concern: Childcare - High Risk (06/04/2018) Childcare Childcare: Unknown Employment: Unknown (08/15/2018) Employment Employment: Unknown Recent Concern: Employment - High Risk (06/04/2018) Employment Employment: Unknown Purpose - Life: Unknown (03/22/2020) Purpose - Life Purpose and direction in life: Unknown Depression: Not at risk (05/17/2024) PHQ-2 PHQ-2 Score: 1 Alcohol Use: Not At Risk (05/17/2024) AUDIT-C Frequency of Alcohol Consumption: Never Average Number of Drinks: Patient does not drink Frequency of Binge Drinking: Never Tobacco Use: Low Risk (05/22/2024) Patient History Smoking Tobacco Use: Never Smokeless Tobacco Use: Never Passive Exposure: Not on file Social Connections: Not on file Physical Activity: Not on file Stress: Not on file The following portions of the patient's history were reviewed and updated as appropriate: allergies, current medications, past family history, past medical history, past social history, past surgical history, problem list, and medication reconciliation was completed including current medication and post discharge medication. Pain Scale: Pain Scale 0/10: Unable to rate Review of Systems Constitutional: Negative. Negative for appetite change, chills and fever. HENT: Positive for hearing loss. Negative for trouble swallowing. Eyes: Negative. Respiratory: Negative. Negative for cough, shortness of breath and stridor. Cardiovascular: Positive for leg swelling. Negative for chest pain and palpitations. Gastrointestinal: Negative. Negative for abdominal distention, abdominal pain, nausea and vomiting. Genitourinary: Positive for difficulty urinating. Negative for dysuria, frequency and urgency. Musculoskeletal: Positive for arthralgias, back pain and gait problem. Skin: Positive for color change and wound. Neurological: Positive for numbness. Negative for weakness. Psychiatric/Behavioral: The patient is nervous/anxious. Objective: Vitals: 07/17/24 1309 BP: 125/68 Pulse: 91 Resp: 16 Temp: 36.6 C (97.8 F) Physical Exam Nursing note reviewed. Constitutional: Appearance: She is well-developed. HENT: Head: Normocephalic and atraumatic. Mouth/Throat: Dentition: Abnormal dentition. Cardiovascular: Rate and Rhythm: Normal rate and regular rhythm. Heart sounds: No murmur heard. No friction rub. Comments: Right DP/PT Doppler signal, monophasic , weak Bilateral lower extremity without pitting edema +stemmers sign bilaterally Pulmonary: Effort: No respiratory distress. Breath sounds: Normal breath sounds. No wheezing. Musculoskeletal: General: Normal range of motion. Cervical back: Normal range of motion. Skin: General: Skin is warm and dry. Neurological: Mental Status: She is alert and oriented to person, place, and time. Wound Assessment Wound 02/14/24 1 Pressure Injury Calf Right;Right Lateral;Proximal (Active) Wound Image Pre debridement Post debridement 07/17/241352 Site Assessment Ransom;Yellow 07/17/241352 Cecy-wound Assessment Blanchable erythema 07/17/241352 Wound Length (cm) 10 cm 07/17/241352 Wound Width (cm) 2.5 cm 07/17/241352 Wound Surface Area (cm^2) 19.63 cm^2 07/17/241352 Wound Depth (cm) 0.2 cm 07/17/241352 Wound Volume (cm^3) 2.618 cm^3 07/17/241352 Change in Wound Size % 18.21 07/17/241352 Drainage Description Serosanguineous 07/17/241352 Drainage Amount Moderate 07/17/241352 Treatments Cleansed with;Wound cleanser 07/17/241352 Debridement Performed? Y 07/17/241352 Type of Debridement Sharp to Subcutaneous 07/17/241352 Dressing Type Honey Dressing;Abdominal dressing;Gauze Rolled/Kerlix;Vaseline gauze 07/17/241352 Dressing Changed New 07/17/241352 Dressing Status Clean;Dry;Intact 07/17/241352 Wound Bed Granulation (%) 50% to 75% 07/17/24 1300 Wound Bed Slough (%) 50% to 75% 07/17/24 1300 Wound 06/12/24 2 Pressure Injury Calf Right Lateral;Distal (Active) Wound Image Pre debridement Post debride 07/17/241352 Site Assessment Red;Ransom;White 07/17/241352 Cecy-wound Assessment Blanchable erythema;Dry;Ransom 07/17/241352 Wound Length (cm) 3.7 cm 07/17/241352 Wound Width (cm) 0.7 cm 07/17/241352 Wound Surface Area (cm^2) 2.03 cm^2 07/17/241352 Wound Depth (cm) 0.2 cm 07/17/241352 Wound Volume (cm^3) 0.271 cm^3 07/17/241352 Change in Wound Size % 71.21 07/17/241352 Drainage Description Serosanguineous;Yellow 07/17/241352 Drainage Amount Small 07/17/241352 Treatments Cleansed with;Wound cleanser 07/17/241352 Debridement Performed? Y 07/17/241352 Type of Debridement Sharp to Subcutaneous 07/17/241352 Dressing Type Abdominal dressing;Honey Dressing;Vaseline gauze;Gauze Rolled/Kerlix 07/17/241352 Dressing Changed New 07/17/241352 Dressing Status Clean;Dry;Intact 07/17/241352 Wound Bed Granulation (%) < 25% 07/17/241299 Wound Bed Slough (%) 50% to 75% 07/17/24 1300 Wound 07/17/24 4 Skin Tear Foot Dorsal;Right (Active) Wound Image 07/17/24 1300 Site Assessment Yellow;Red 07/17/241352 Cecy-wound Assessment Blanchable erythema;Edema;Ransom 07/17/241352 Wound Length (cm) 2.5 cm 07/17/24 1300 Wound Width (cm) 2 cm 07/17/24 1300 Wound Surface Area (cm^2) 3.93 cm^2 07/17/24 1300 Wound Depth (cm) 0.1 cm 07/17/24 1300 Wound Volume (cm^3) 0.262 cm^3 07/17/24 1300 Drainage Description Serosanguineous 07/17/241352 Drainage Amount Small 07/17/241352 Treatments Cleansed with;Wound cleanser 07/17/241352 Debridement Performed? N 07/17/241352 Dressing Type Foam;Honey Dressing;Vaseline gauze;Gauze Rolled/Kerlix 07/17/241352 Dressing Changed New 07/17/241352 Dressing Status Clean;Dry;Intact 07/17/24 1353 Wound Bed Granulation (%) < 25% 07/17/24 1300 Wound Bed Slough (%) 75% to 100% 07/17/24 1300 Discussion: Debridement is the removal of foreign material and/or devitalized tissue until healthy tissue is exposed. Risks, benefits and alternatives were discussed with the patient. We discussed possible complications, including infection and bleeding. Written consent was obtained prior to the procedure. Timeout procedure completed. Goal of debridement includes: removal of devitalized tissue, decrease risk of infection, promote wound healing and prevent further complications. Debridement Performed by: GINA Thurman Authorized by: GINA Thurman Associated wounds: Wound 02/14/24 1 Pressure Injury Calf Right;Right Lateral;Proximal Consent: Consent obtained: Verbal and written Consent given by: Patient Risks discussed: Yes Debridement Details: Performed by: AGRICULTURE INSTRUCTOR Type: Sharp Level: Subcutaneous Tissue, Devitalized tissue and other material debrided: Subcutaneous tissue and fibrin Anesthesia administration: topical Anesthesia: EMLA Total Surface Area Debrided cm^2: 21.66 Specimen Taken: None Instrument: Curette Amount of bleeding: Medium Bleeding Control: Pressure Response to treatment: Procedure was tolerated well Tissue Applied?: No Procedure:Patient tolerates procedure well Assessment/Plan/Education: 1. Pressure injury of right calf, stage 3 (CMS-HCC) 2. Lymphedema 3. ISTAP type 3 skin tear of plantar aspect of left foot Wash wound daily mild soap and water Cover AL wounds with medi honey and adaptic Cover with foam, prefer PolyMem foam if available Secure with roll gauze Secure with PRECIOUS wrap Change daily Pad and protect left lower leg to reduce pressure It may be helpful to pad support bars of power chair Preventable Bundle Turn a minimum of every 2 hours while in bed. Therapeutic mattress and wheelchair cushion Pad and Protect bony prominences. Assess skin daily Patient instructed in Other: pressure ulcer care to left, right, outer, and calf. Short term goal: medical compliance prison goal: wound closure Patient verbalize understanding of treatment regimen and the importance of adherence. Follow up in wound clinic in 4 weeks Instructed to contact wound clinic, PCP or ER should symptoms worsen. The patient was taught to watch for S/S of infection (redness, pus, pain, increased swelling, chills or fever) and to call the PCP or wound care clinic if such occurs. The patient was educated on offloading the area by avoiding direct pressure to the wound bed. Education as well as the pathophysiology of the disease process was provided on infection, edema, necrotic tissue and its relationship to nonhealing wounds. Education was also provided on treatment plan. Patient verbalized understanding. Total time spent was 19 minutes: Preparing to see the patient (e.g., review of tests) Obtaining and/or reviewing separately obtained history Performing a medically appropriate examination and/or evaluation Counseling and educating the patient/family/caregiver Ordering medications, tests, or procedures Referring and communicating with other health childcare aide (not separately reported) Documenting clinical information in the electronic or other health record - GINA THURMAN 07/17/24 2:06 PM Elidia Tierney APRN, MARYAM, MICHAEL, DUC [facility]: [phone] GINA Thurman 02/17/24 1104 GINA Thurman 02/28/24 1557 GINA Thurman 03/20/24 1438 GINA Thurman 04/03/24 1007 GINA Thurman 05/13/24 0947 GINA Thurman 06/12/24 1449 GINA Thurman 07/17/24 1412 documented in this encounter [facility] 07-17-2024 Instructions Gertrude Arias RN - 07/17/2024 1:00 PM EDT Wound Management Treatment Plan [facility]: 07/17/2024 Wound Location(s): RIGHT LATERAL PROXIMAL LOWER LEG, RIGHT LATERAL DISTAL LOWER LEG, RIGHT DORSAL FOOT( NEW WOUND 07/17/2024). HOW TO CARE FOR YOUR WOUNDS: pLEASE BRING SLING TO WOUND CARE VISIT The following should be performed Daily and as needed. STEP 1: Cleanse wound with Wound cleanser. Irrigate or rinse wound with NO IRRIGATION REQUIRED. STEP 2: Soak wound with NO SOAK REQUIRED STEP 3: Pack with NO PACKING REQUIRED STEP 4: Apply Medihoney to ALL wound beds. STEP 5: Then, Cover all wounds with adaptic and non adhesive foam and abd if needed STEP 6: Secure dressings with Roll gauze/Kerlix and Tape then precious wraps to bilateral lower legs, wrap precious wrap from base of toes to bend of knee PLEASE PROVIDE PADDING ON THE WHEELCHAIR AT ALL TIMES TO PROVIDE RELIEF OF PRESSURE AND TO HELP TO PAD AND PROTECT THE SKIN RIGHT THIRD POSTERIOR TOE: healed 02/28/24 -apply antibacterial ointment to healed area daily -cover with band aide - change daily ACTIVITY: Avoid direct pressure to wound(s) at all times and Reposition at least every 2 hours NUTRITION: High protein diet SKIN CARE: MAKE SURE TO PAD AND PROTECT PT'S FEET AND LEGS FROM RUBBING ON HER WHEELCHAIR. SWELLING CONTROL: Preicous wraps to be applied first thing in the morning and removed at bedtime. right and left leg wrap from base of toes to just below the knee. May require more than one wrap per leg. ITEMS TO FOLLOW UP ON: -Xray of right lower leg completed. -appointment for vascular studies is 03/02/24 A wound culture was obtained at wound care clinic 02/14/24 Length Width Depth Wound 07/17/24 4 Traumatic Foot Dorsal;Right-Wound Length (cm): 2.5 cm Wound 06/12/24 2 Pressure Injury Calf Right Lateral;Distal-Wound Length (cm): 3.7 cm Wound 02/14/24 1 Pressure Injury Calf Right;Right Lateral;Proximal-Wound Length (cm): 10 cm Wound 07/17/24 4 Traumatic Foot Dorsal;Right-Wound Width (cm): 2 cm Wound 06/12/24 2 Pressure Injury Calf Right Lateral;Distal-Wound Width (cm): 0.7 cm Wound 02/14/24 1 Pressure Injury Calf Right;Right Lateral;Proximal-Wound Width (cm): 2.5 cm Wound 07/17/24 4 Traumatic Foot Dorsal;Right-Wound Depth (cm): 0.1 cm Wound 06/12/24 2 Pressure Injury Calf Right Lateral;Distal-Wound Depth (cm): 0.2 cm Wound 02/14/24 1 Pressure Injury Calf Right;Right Lateral;Proximal-Wound Depth (cm): 0.2 cm Wound drainage Type Description LARGE Serosanguinous Stark, yellow, bloody, GREEN documented in this encounter [facility] 07-02-2024 Telephone encounter Note Requested Prescriptions Signed Prescriptions Disp Refills oxyCODONE (Roxicodone) 5 MG immediate release tablet 120 tablet 0 Sig: Take 1 tablet (5 mg) by mouth every 6 (six) hours if needed for severe pain Authorizing Provider: CM MATHEWS [facility] 07-02-2024 Miscellaneous Notes Requested Prescriptions Signed Prescriptions Disp Refills oxyCODONE (Roxicodone) 5 MG immediate release tablet 120 tablet 0 Sig: Take 1 tablet (5 mg) by mouth every 6 (six) hours if needed for severe pain Authorizing Provider: CM MATHEWS documented in this encounter [facility] 06-12-2024 History of Present illness Narrative Images from the original note were not included. Wound Care Progress Note Patient: Donna Mathews Date of : 1960 Chief Complaint: Bilateral lower leg wounds, follow up SUBJECTIVE/HPI: Donna is a 63 y.o. female who presents to [facility] for evaluation of 1 ulcer(s) converted to two ulcer on the right lateral leg. Patient established with wound clinic on 02/14/2024. Current daily wound care includes: medi honey, copper alginate and PolyMem foam. Patient reports wounds are changed daily by nursing facility. Left leg wound reopened slightly. Presents to wound clinic with a new power chair. The chair leg supports are not padded. Legs abduct while she is sitting in the power chair, legs continue to rest on the support bars. Patient is a resident of a [facility]. Measurable wound changes: left leg reopened, right leg wound decrease in measurement. Patient accompanied by: caregiver, patient arrives in a new power wheelchair. Nutritional screen shows patient does take in three servings of protein per day. Patient does deny fever, chills, sweats, or other signs of infection. Prescribed antibiotics: none Today's reported Blood Sugar:N/A Lab Results Component Value Date HGBA1C 5.5 09/14/2022 HGBA1C 5.7 08/21/2021 Tobacco use: denied - never a smoker Contributing comorbid conditions: MS, nonambulatory, wheelchair dependent, end-stage renal disease, dialysis dependent Labs/Imaging/Cardiovascular: Patient's chart was reviewed for all available supporting documentation, laboratory results and radiographic examination. Patient Active Problem List Diagnosis Personal history of DVT (deep vein thrombosis) Closed fracture of femur with nonunion Charcot's arthropathy Anemia of chronic disease Chronic renal impairment, stage 4 (severe) ([facility]) End stage renal disease ([facility] [facility]) ESRD (end stage renal disease) ([facility] [place] [facility]) Family history of MS (multiple sclerosis) Chronic indwelling Douglas catheter Leukocytosis Morbid obesity ([facility]) MS (multiple sclerosis) ([facility] [place]) Traumatic ulcer of left lower extremity with fat layer exposed ([facility] [place]) Traumatic ulcer of right lower extremity with fat layer exposed ([facility] [place]) Dermatitis associated with moisture Lymphedema AV fistula stenosis Pseudoaneurysm following procedure Anxiety and depression Carpal tunnel syndrome Chronic back pain Congenital pes planus DDD (degenerative disc disease), lumbar Disturbance of skin sensation Enthesopathy of hip region Facet arthritis of lumbar region Lack of coordination Neurogenic bladder Numbness Osteoporosis Pain in limb Peripheral neuropathy Polyneuropathy Radicular pain Radiculopathy, lumbosacral region Ulnar nerve abnormality Chronic fatigue Debility Pressure injury of right calf, stage 3 ([facility] [place]) Wound infection Hyperkalemia Pressure ulcer of sacral region, stage 3 ([facility] [place]) Pressure injury of deep tissue of left calf Acquired arteriovenous fistula Past Medical History: Diagnosis Date Anemia Anemia of chronic disease 08/30/2022 [address]xiety AV fistula stenosis ([facility]) 04/01/2023 Charcot's arthropathy 03/27/2013 Charcot's joint CHF (congestive heart failure) ([facility] [facility]) Chronic indwelling Douglas catheter 09/13/2022 Chronic kidney disease Chronic renal impairment, stage 4 (severe) ([facility] [facility]) 08/30/2022 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 Deep vein thrombosis ([facility] [facility]) RLE Dermatitis associated with moisture 09/14/2022 Diabetes mellitus type 2, controlled ([facility]) Dialysis patient ([facility] [place] [facility]) End stage renal disease ([facility] [place]) 09/05/2022 ESRD (end stage renal disease) ([facility] [facility]) 09/13/2022 Family history of MS (multiple sclerosis) 09/13/2022 GERD (gastroesophageal reflux disease) Hyperlipidemia Hypertension Leukocytosis 09/13/2022 Lymphedema Morbid obesity ([facility]) 09/13/2022 MS (multiple sclerosis) ([facility]) 09/13/2022 Neuromuscular dysfunction of bladder Obesity Personal history of DVT (deep vein thrombosis) 09/29/2013 Positive occult stool blood test 04/17/2024 Stroke ([facility]) Tabes dorsalis Thrombocytopenia ([facility] [place] [facility]) Traumatic ulcer of left lower extremity with fat layer exposed ([facility]) 09/14/2022 Traumatic ulcer of right lower extremity with fat layer exposed ([facility]) 09/14/2022 Past Surgical History: Procedure Laterality Date BARIATRIC SURGERY Catheter Placement N/A 09/07/2022 Performed by Angelique Mckinnon DO at [facility] CARDIAC CATH LABS CREATION ARTERIOVENOUS FISTULA UPPER EXTREMITY BRACHIAL CEPHALIC, EXPLORATION LEFT WRIST WITH REPAIR OF RADIAL ARTERY LEFT Left 10/31/2022 Performed by Braydon Rich MD at [facility] HEMODIALYSIS INPATIENT 05/31/2023 LIPECTOMY AVF Left 02/25/2023 Performed by Krystin Salcedo MD at [facility] Current Outpatient Medications Medication Sig Dispense Refill acetaminophen (TYLENOL) 325 mg tablet Take 2 tablets (650 mg total) by mouth every 8 (eight) hours Indications: pain. atorvastatin (LIPITOR) 80 mg tablet Take 1 tablet (80 mg total) by mouth once daily at bedtime. azelastine (ASTELIN) 137 mcg (0.1 %) nasal spray Administer 2 sprays into each nostril once daily at bedtime Indications: seasonal runny nose. Use in each nostril as directed B complex-vitamin C-folic acid (NEPHROCAP) 1 mg capsule Take 1 capsule by mouth in the morning. Give one tablet by mouth in the morning for ESRD. biotin 1 mg tablet Take 1 tablet (1 mg total) by mouth in the morning. bisacodyL (DULCOLAX) 5 mg EC tablet Take 1 tablet (5 mg total) by mouth daily as needed for constipation. 4 tablet 0 calcium carbonate (OS-NAIMA) 500 mg elemental (1,250 mg) tablet Take 2 tablets (1,000 mg total) by mouth in the morning. Indications: low amount of calcium in the blood. carboxymethylcellulose (REFRESH TEARS) 1 % ophthalmic solution Administer 1 drop to both eyes in the morning. Indications: dry eye. carvediloL (COREG) 6.25 mg tablet Take 0.5 tablets (3.125 mg total) by mouth in the morning. cholecalciferol (VITAMIN D3) 1,000 units tablet Take 1 tablet (1,000 Units total) by mouth in the morning. (Patient taking differently: Take 4 tablets (4,000 Units total) by mouth in the morning.) 30 tablet 3 ipratropium-albuteroL (DUONEB) 0.5 mg-3 mg(2.5 mg base)/3 mL nebulizer Inhale 3 mL by nebulization every 6 (six) hours as needed for wheezing or shortness of breath. lactulose (CHRONULAC) 10 gram/15 mL solution Take 45 mL (30 g total) by mouth daily as needed (constipation). LUTEIN ORAL Take 1 tablet by mouth in the morning. menthol (BIOFREEZE, MENTHOL,) 4 % gel Apply 1 Application topically every 8 (eight) hours as needed Indications: pain associated with arthritis, sprains and strains. midodrine (PROAMATINE) 10 mg tablet Take 1 tablet (10 mg total) by mouth 3 (three) times a day. midodrine (PROAMATINE) 5 mg tablet Take 1 tablet (5 mg total) by mouth daily as needed (if SBP < 100; do not exceed 40 mg/day). modafiniL (PROVIGIL) 100 mg tablet Take 1 tablet (100 mg total) by mouth in the morning. For MS. multivitamin with minerals tablet Take 1 tablet by mouth in the morning. Give one tablet by mouth in the afternoon for preventive . nut.tx.imp.renal fxn,lac-reduc (NEPRO CARB STEADY) 0.08 gram-1.8 kcal/mL liquid Take 237 fluid ounces by mouth daily after dinner. nystatin (MYCOSTATIN) powder Apply 1 Application topically as needed (As needed). Apply to under breast and folds topically as needed for dermatitis OXcarbazepine (TRILEPTAL) 300 mg tablet Take 1 tablet (300 mg total) by mouth in the morning and 1 tablet (300 mg total) before bedtime. For MS/neuropathy. oxycodone HCl (OXYCODONE ORAL) Take 5 mg by mouth every 6 (six) hours as needed (every 6 hours). Give one tablet as by mouth every 6 hours as needed for moderate to severe pain Max Daily Amount: 20 mg pantoprazole (PROTONIX) 40 mg EC tablet Take 1 tablet (40 mg total) by mouth in the morning and 1 tablet (40 mg total) in the evening. Take before meals. 60 tablet 3 polyethylene glycol (GLYCOLAX) 17 gram packet Take 17 g by mouth in the morning. Indications: constipation. In the afternoon . pregabalin (LYRICA) 75 mg capsule Take 1 capsule (75 mg total) by mouth once daily at bedtime. Give 1 capsule by mouth at bed time for chronic pain EDWIN-LOLIS RX 1-60-300 mg-mg-mcg tablet sennosides-docusate sodium (SENOKOT-S) 8.6-50 mg Take 1 tablet by mouth every 12 (twelve) hours as needed for constipation. sertraline (ZOLOFT) 25 mg tablet Take 2 tablets (50 mg total) by mouth in the morning. sevelamer (RENVELA) 800 mg tablet Take 1 tablet (800 mg total) by mouth in the morning and 1 tablet (800 mg total) at noon and 1 tablet (800 mg total) in the evening. Take with meals. 90 tablet 3 simethicone (MYLICON) 80 mg chewable tablet Chew 1 tablet (80 mg total) and swallow every 6 (six) hours as needed (indigestion). sodium zirconium cyclosilicate (LOKELMA) 10 gram packet Take 10 g by mouth 3 (three) times a week. 30 packet 3 trazodone HCl (TRAZODONE ORAL) Take 12.5 mg by mouth nightly. (Patient taking differently: Take 25 mg by mouth nightly Indications: depression, difficulty sleeping.) No current facility-administered medications for this visit. No Known Allergies Social Drivers of Health Food Insecurity: No Food Insecurity (06/12/2024) Hunger Screening Food Insecurity - Worry: Never True Food Insecurity - Inability: Never True Housing Instability: Low Risk (05/17/2024) Housing Instability Housing Instability: No Transportation Needs: No Transportation Needs (05/17/2024) PRAPARE - Transportation Lack of Transportation (Medical): No Lack of Transportation (Non-Medical): No Utility Difficulties: Not At Risk (05/17/2024) [facility] Utilities Threatened with loss of utilities: No Interpersonal Safety: Not At Risk (05/17/2024) Humiliation, Afraid, Rape, and Kick questionnaire Fear of Current or Ex-Partner: No Emotionally Abused: No Physically Abused: No Sexually Abused: No Financial Resource Strain: Low Risk (05/30/2023) Overall Financial Resource Strain (CARDIA) Difficulty of Paying Living Expenses: Not hard at all Childcare: Unknown (08/15/2018) Childcare Childcare: Unknown Recent Concern: Childcare - High Risk (06/04/2018) Childcare Childcare: Unknown Employment: Unknown (08/15/2018) Employment Employment: Unknown Recent Concern: Employment - High Risk (06/04/2018) Employment Employment: Unknown Purpose - Life: Unknown (03/22/2020) Purpose - Life Purpose and direction in life: Unknown Depression: Not at risk (05/17/2024) PHQ-2 PHQ-2 Score: 1 Alcohol Use: Not At Risk (05/17/2024) AUDIT-C Frequency of Alcohol Consumption: Never Average Number of Drinks: Patient does not drink Frequency of Binge Drinking: Never Tobacco Use: Low Risk (05/22/2024) Patient History Smoking Tobacco Use: Never Smokeless Tobacco Use: Never Passive Exposure: Not on file Social Connections: Not on file Physical Activity: Not on file Stress: Not on file The following portions of the patient's history were reviewed and updated as appropriate: allergies, current medications, past family history, past medical history, past social history, past surgical history, problem list, and medication reconciliation was completed including current medication and post discharge medication. Pain Scale: Pain Scale 0/10: Unable to rate Review of Systems Constitutional: Negative. Negative for appetite change, chills and fever. HENT: Positive for hearing loss. Negative for trouble swallowing. Eyes: Negative. Respiratory: Negative. Negative for cough, shortness of breath and stridor. Cardiovascular: Positive for leg swelling. Negative for chest pain and palpitations. Gastrointestinal: Negative. Negative for abdominal distention, abdominal pain, nausea and vomiting. Genitourinary: Positive for difficulty urinating. Negative for dysuria, frequency and urgency. Musculoskeletal: Positive for arthralgias, back pain and gait problem. Skin: Positive for color change and wound. Neurological: Positive for numbness. Negative for weakness. Psychiatric/Behavioral: The patient is nervous/anxious. Objective: Vitals: 06/12/24 1354 BP: 145/86 Pulse: 74 Resp: 18 Temp: 36 C (96.8 F) Physical Exam Nursing note reviewed. Constitutional: Appearance: She is well-developed. HENT: Head: Normocephalic and atraumatic. Mouth/Throat: Dentition: Abnormal dentition. Cardiovascular: Rate and Rhythm: Normal rate and regular rhythm. Heart sounds: No murmur heard. No friction rub. Comments: Right DP/PT Doppler signal, monophasic , weak Bilateral lower extremity without pitting edema +stemmers sign bilaterally Pulmonary: Effort: No respiratory distress. Breath sounds: Normal breath sounds. No wheezing. Musculoskeletal: General: Normal range of motion. Cervical back: Normal range of motion. Skin: General: Skin is warm and dry. Neurological: Mental Status: She is alert and oriented to person, place, and time. Wound Assessment Wound 02/14/24 1 Pressure Injury Calf Right;Right Lateral;Proximal (Active) Wound Image Pre debridement Post debridement 06/12/24 1400 Site Assessment Yellow;Stark 06/12/24 1355 Cecy-wound Assessment Blanchable erythema 06/12/24 1355 Wound Length (cm) 8 cm 06/12/24 1400 Wound Width (cm) 2 cm 06/12/24 1400 Wound Surface Area (cm^2) 16 cm^2 06/12/24 1400 Wound Depth (cm) 0.2 cm 06/12/24 1400 Wound Volume (cm^3) 3.2 cm^3 06/12/24 1400 Change in Wound Size % 33.33 06/12/24 1400 Drainage Description Serosanguineous;Stark;Yellow;Green 06/12/24 1355 Drainage Amount Moderate 06/12/24 135 Treatments Cleansed with;Soak with;Vashe/Hypochlorous Acid 06/12/241354 Debridement Performed? Y 06/12/24 1400 Type of Debridement Sharp to Subcutaneous 06/12/24 1400 Dressing Type Honey Dressing;Vaseline gauze;Foam;Gauze Rolled/Kerlix;Other (Comment) 06/12/24 1400 Dressing Changed New 06/12/24 1400 Dressing Status Clean;Dry;Intact 06/12/24 1400 Wound Bed Slough (%) 100% 06/12/24 135 Wound 06/12/24 2 Pressure Injury Calf Right Lateral;Distal (Active) Wound Image Pre debridement Post debridement 06/12/24 1400 Site Assessment Yellow;Stark 06/12/241354 Cecy-wound Assessment Blanchable erythema 06/12/241354 Wound Length (cm) 4.7 cm 06/12/24 1400 Wound Width (cm) 1.5 cm 06/12/24 1400 Wound Surface Area (cm^2) 7.05 cm^2 06/12/24 1400 Wound Depth (cm) 0.2 cm 06/12/24 1400 Wound Volume (cm^3) 1.41 cm^3 06/12/24 1400 Change in Wound Size % 0 06/12/24 1400 Drainage Description Stark;Yellow;Serosanguineous;Green 06/12/241354 Drainage Amount Moderate 06/12/241354 Treatments Cleansed with;Soak with 06/12/241354 Debridement Performed? Y 06/12/24 1400 Type of Debridement Sharp to Subcutaneous 06/12/24 1400 Dressing Type Honey Dressing;Vaseline gauze;Foam;Gauze Rolled/Kerlix;Other (Comment) 06/12/24 1400 Dressing Changed New 06/12/24 1400 Dressing Status Clean;Dry;Intact 06/12/24 1400 Wound Bed Slough (%) 100% 06/12/241354 Left leg wound reopened Discussion: Debridement is the removal of foreign material and/or devitalized tissue until healthy tissue is exposed. Risks, benefits and alternatives were discussed with the patient. We discussed possible complications, including infection and bleeding. Written consent was obtained prior to the procedure. Timeout procedure completed. Goal of debridement includes: removal of devitalized tissue, decrease risk of infection, promote wound healing and prevent further complications. Procedure: Debridement/Procedure Level: Removal of devitalized tissue, nonviable tissue and/or infection. Sub-q/Tissue lateral leg, right Instrument Used: Curette Anesthesia dermoplast Bleeding: Large Bleeding Control: Pressure Added Pain Control: None Specimen Taken: None Total Surface Area of Debridement: 23.05 cm2 Medi honey, adaptic, foam,roll gauze and PRECIOUS wrap applied today in wound clinic Patient tolerates procedure well Assessment/Plan/Education: 1. Pressure injury of right calf, stage 3 (CMS-HCC) 2. Pressure injury of left calf, stage 2 (CMS-HCC) 3. Lymphedema Continue tomorrow Wash wound daily mild soap and water Cover wounds with medi honey and adaptic Cover with foam, prefer PolyMem foam if available Secure with roll gauze Secure with PRECIOUS wrap Change daily Pad and protect left lower leg to reduce pressure It may be helpful to pad support bars of power chair Preventable Bundle Turn a minimum of every 2 hours while in bed. Therapeutic mattress and wheelchair cushion Pad and Protect bony prominences. Assess skin daily Patient instructed in Other: pressure ulcer care to left, right, outer, and calf. Short term goal: medical compliance prison goal: wound closure Patient verbalize understanding of treatment regimen and the importance of adherence. Follow up in wound clinic in 4 weeks Instructed to contact wound clinic, PCP or ER should symptoms worsen. The patient was taught to watch for S/S of infection (redness, pus, pain, increased swelling, chills or fever) and to call the PCP or wound care clinic if such occurs. The patient was educated on offloading the area by avoiding direct pressure to the wound bed. Education as well as the pathophysiology of the disease process was provided on infection, edema, necrotic tissue and its relationship to nonhealing wounds. Education was also provided on treatment plan. Patient verbalized understanding. Total time spent was 19 minutes: Preparing to see the patient (e.g., review of tests) Obtaining and/or reviewing separately obtained history Performing a medically appropriate examination and/or evaluation Counseling and educating the patient/family/caregiver Ordering medications, tests, or procedures Referring and communicating with other health childcare aide (not separately reported) Documenting clinical information in the electronic or other health record - ELIDIA TIERNEY APRN-MARYAM 06/12/24 2:35 PM Elidia Tierney APRN, MARYAM, CWS, DUC [facility]: [phone] Elidia Clark [place], AMNA-WINK CUTTER OPERATOR 02/17/24 1104 Elidia Clark [place], [employer] SEWER-WINK CUTTER OPERATOR 02/28/24 1557 Elidia Clark [place], GLOVE FACTORY SEWER-WINK CUTTER OPERATOR 03/20/24 1438 Elidia Clark [place], GLOVE FACTORY SEWER-WINK CUTTER OPERATOR 04/03/24 1007 Elidia Clark [place], GLOVE FACTORY SEWER-WINK CUTTER OPERATOR 05/13/24 0947 Elidia Clark [place], GLOVE FACTORY SEWER-WINK CUTTER OPERATOR 06/12/24 1449 documented in this encounter [facility] 06-12-2024 Instructions Niharika Moss RN - 06/12/2024 1:20 PM EDT Wound Management Treatment Plan [facility]: NEW ORDERS 06/12/24 Wound Location(s): RIGHT LATERAL PROXIMAL LOWER LEG, RIGHT LATERAL DISTAL LOWER LEG, LEFT LATERAL LOWER LEG HOW TO CARE FOR YOUR WOUNDS: The following should be performed Daily and as needed. STEP 1: Cleanse wound with Wound cleanser. Irrigate or rinse wound with NO IRRIGATION REQUIRED. STEP 2: Soak wound with NO SOAK REQUIRED STEP 3: Pack with NO PACKING REQUIRED STEP 4: Apply Medihoney to ALL wound beds. STEP 5: Then, Cover all wounds with adaptic and non adhesive foam STEP 6: Secure dressings with Roll gauze/Kerlix and Tape then precious wraps to bilateral lower legs, wrap precious wrap from base of toes to bend of knee PLEASE PROVIDE PADDING ON THE WHEELCHAIR AT ALL TIMES TO PROVIDE RELIEF OF PRESSURE AND TO HELP TO PAD AND PROTECT THE SKIN RIGHT THIRD POSTERIOR TOE: healed 02/28/24 -apply antibacterial ointment to healed area daily -cover with band aide - change daily ACTIVITY: Avoid direct pressure to wound(s) at all times and Reposition at least every 2 hours NUTRITION: High protein diet SKIN CARE: MAKE SURE TO PAD AND PROTECT PT'S FEET AND LEGS FROM RUBBING ON HER WHEELCHAIR. SWELLING CONTROL: Precious wraps to be applied first thing in the morning and removed at bedtime. right and left leg wrap from base of toes to just below the knee. May require more than one wrap per leg. ITEMS TO FOLLOW UP ON: -Xray of right lower leg completed. -appointment for vascular studies is 03/02/24 A wound culture was obtained at wound care clinic 02/14/24 Length Width Depth Wound drainage Type Description LARGE Serosanguinous Stark, yellow, bloody, GREEN documented in this encounter [facility] 05-22-2024 History of Present illness Narrative Patient here for 2 units PRBCs as scheduled. Patient states she has had blood years before and denies any issues with it. IV started after multiple attempts, blood return noted and flushed, NS started at KVO. No premeds ordered. First unit started at 120ml/hr for 15 minutes then increased to 200ml/hr for the duration of transfusion. IV lasix given. Vitals stable. Second unit started at 120ml/hr for 15 minutes then increased to 200ml/hr for the duration of transfusion. IV flushed, discontinued and pressure dressing applied. Patient discharged in stable condition documented in this encounter [facility] 05-21-2024 History of Present illness Narrative Blood transfusion scheduled with Joseline for tomorrow at 09:00 She will go and get her type and screen at the hospital before 5 pm. Consent and order scanned into media. Orders transcribed and spoke with [employer]. Patient has to move with bonilla lift. She is able to stay in the wheelchair. She has a douglas cath and will bring an aide with her for assistance. documented in this encounter [facility] 05-19-2024 Plan of care note Problem: Pain Goal: Patient goal is pain score less than 4, able to rest, and participant in treatment plan as appropriate Description: INTERVENTIONS: 1. Encourage patient or legal account manager sales representative to report early pain and ask for pain medicine when needed 2. Assess pain using appropriate pain scale and include the scale used when documenting 3. Administer analgesics based on type and severity of pain and evaluate response within appropriate time frame 4. Implement non-pharmacological measures as appropriate and evaluate response 5. Consider cultural and social influences on pain and pain management 6. Notify LIP if interventions ineffective or patient reports new pain 7. Monitor vital signs including pulse ox, end-tidal CO2 based on pain intervention 8. Reassess pain per policy 9. Teach patient or legal account manager sales representative interventions for comforting Outcome: Progressing Note: Evaluation of progress towards goal: Patient denies pain at this time. Patient reports improvement of pain symptoms with one time dose of oral pain medication. Problem: Safety Goal: Patient will be injury free during hospitalization Description: INTERVENTIONS: 1. Assess patient's risk for falls and implement fall prevention plan of care per policy 2. Provide and maintain a safe environment 3. Proper use of double Identifiers 4. Medication administration using the 5 rights 5. Hand hygiene 6. Specimens are labeled at the bedside 7. Instruct patient/ patient account manager sales representative about use of safety devices 8. Include patient/ patient account manager sales representative in decisions related to safety Outcome: Progressing Note: Evaluation of progress towards goal: Patient remains free from injury with call light in reach. Problem: Infection Goal: Absence of infection during hospitalization Description: INTERVENTIONS 1. Assess and monitor for signs and symptoms of infection. 2. Monitor lab/diagnostic results. 3. Monitor all insertion sites i.e., indwelling lines, tubes and drains. 4. Monitor endotracheal (as able) and nasal secretions for changes in amount and color. 5. Administer medications as ordered. 6. Instruct and encourage patient and family to use good hand hygiene technique. 7. Identify and instruct patient/patient account manager sales representative in use of appropriate isolation precautions for identified infection/symptoms. 8. Provide and discuss with patient/patient account manager sales representative on educational MDRO sheet. 9. Encourage and monitor nutritional status daily and consult concrete buster operator if indicated. 10. Implement neutropenic guidelines as needed. Outcome: Progressing Note: Evaluation of progress towards goal: Patient is afebrile. Problem: Knowledge Deficit Goal: Patient/patient account manager sales representative demonstrates understanding of disease process, treatment plan, medications, and discharge instructions Description: INTERVENTIONS 1. Complete learning assessment and assess knowledge base 2. Provide teaching at level of understanding 3. Provide teaching via preferred learning method(s) Outcome: Progressing Note: Evaluation of progress towards goal: Patient states understanding of plan of care. [facility] 05-19-2024 Miscellaneous Notes Problem: Pain Goal: Patient goal is pain score less than 4, able to rest, and participant in treatment plan as appropriate Description: INTERVENTIONS: 1. Encourage patient or legal account manager sales representative to report early pain and ask for pain medicine when needed 2. Assess pain using appropriate pain scale and include the scale used when documenting 3. Administer analgesics based on type and severity of pain and evaluate response within appropriate time frame 4. Implement non-pharmacological measures as appropriate and evaluate response 5. Consider cultural and social influences on pain and pain management 6. Notify LIP if interventions ineffective or patient reports new pain 7. Monitor vital signs including pulse ox, end-tidal CO2 based on pain intervention 8. Reassess pain per policy 9. Teach patient or legal account manager sales representative interventions for comforting Outcome: Progressing Note: Evaluation of progress towards goal: Patient denies pain at this time. Patient reports improvement of pain symptoms with one time dose of oral pain medication. Problem: Safety Goal: Patient will be injury free during hospitalization Description: INTERVENTIONS: 1. Assess patient's risk for falls and implement fall prevention plan of care per policy 2. Provide and maintain a safe environment 3. Proper use of double Identifiers 4. Medication administration using the 5 rights 5. Hand hygiene 6. Specimens are labeled at the bedside 7. Instruct patient/ patient account manager sales representative about use of safety devices 8. Include patient/ patient account manager sales representative in decisions related to safety Outcome: Progressing Note: Evaluation of progress towards goal: Patient remains free from injury with call light in reach. Problem: Infection Goal: Absence of infection during hospitalization Description: INTERVENTIONS 1. Assess and monitor for signs and symptoms of infection. 2. Monitor lab/diagnostic results. 3. Monitor all insertion sites i.e., indwelling lines, tubes and drains. 4. Monitor endotracheal (as able) and nasal secretions for changes in amount and color. 5. Administer medications as ordered. 6. Instruct and encourage patient and family to use good hand hygiene technique. 7. Identify and instruct patient/patient account manager sales representative in use of appropriate isolation precautions for identified infection/symptoms. 8. Provide and discuss with patient/patient account manager sales representative on educational MDRO sheet. 9. Encourage and monitor nutritional status daily and consult concrete buster operator if indicated. 10. Implement neutropenic guidelines as needed. Outcome: Progressing Note: Evaluation of progress towards goal: Patient is afebrile. Problem: Knowledge Deficit Goal: Patient/patient account manager sales representative demonstrates understanding of disease process, treatment plan, medications, and discharge instructions Description: INTERVENTIONS 1. Complete learning assessment and assess knowledge base 2. Provide teaching at level of understanding 3. Provide teaching via preferred learning method(s) Outcome: Progressing Note: Evaluation of progress towards goal: Patient states understanding of plan of care. 63 Year old with history of multiple sclerosis and end-stage renal disease, right lower extremity wounds, chronic urinary incontinence, [facility] resident who was admitted for generalized weakness, dry cough. Patient had missed hemodialysis due to symptoms. Found to have hyperkalemia at outside facility and transferred for further management. Currently hemodynamically stable, afebrile and saturating well on room air. Lactic acid 0.9. Procalcitonin 0.7. BNP 129. Troponin negative. Blood cultures remain negative. Flu/ COVID/RSV negative. On room air saturating well. ESRD On hemodialysis. Nephrology consulted for dialysis. Continued regular sessions. Acute on chronic normocytic anemia. Hemoglobin on admission 6.4, repeat above 7 without transfusions. Currently hemoglobin 7.8, repeat 7.3 this morning without transfusion. Baseline around 7. Ferritin 2188. TIBC 241. Consistent with anemia of chronic kidney disease. Vitamin B12 788. Folate above 25. No further transfusions required at this time. Note patient did endorse some epigastric pain this morning however she is not taking her PPI. No melena. Repeat hemoglobin 7.3. No GI bleeding noted. Placed back on oral PPI with improvement in symptoms. Currently back to normal. Will discharge on oral PPI twice daily. Outpatient follow-up with PCP. If continues to endorse epigastric tenderness, might benefit from outpatient EGD. Patient does have chronic sacral wound. Wound cultures positive for MRSA, group B strep and staph x2 variant. Per Infectious Disease, not infected at this time. No need for antibiotics. Recommending wound care. DISCHARGE PLANNING NOTE BLS transport to [facility] 05/19/24 at 1700 hours via [facility]N. Confirmed in [facility]. Problem: Pain Goal: Patient goal is pain score less than 4, able to rest, and participant in treatment plan as appropriate Description: INTERVENTIONS: 1. Encourage patient or legal account manager sales representative to report early pain and ask for pain medicine when needed 2. Assess pain using appropriate pain scale and include the scale used when documenting 3. Administer analgesics based on type and severity of pain and evaluate response within appropriate time frame 4. Implement non-pharmacological measures as appropriate and evaluate response 5. Consider cultural and social influences on pain and pain management 6. Notify LIP if interventions ineffective or patient reports new pain 7. Monitor vital signs including pulse ox, end-tidal CO2 based on pain intervention 8. Reassess pain per policy 9. Teach patient or legal account manager sales representative interventions for comforting Outcome: Progressing Note: Evaluation of progress towards goal: Patient pain assessed and reassessed per policy. Patient calls out appropriately for pain. Pain medications given as needed, per orders. Patient repositioned for comfort. Patient pain controlled at this time. Problem: Safety Goal: Patient will be injury free during hospitalization Description: INTERVENTIONS: 1. Assess patient's risk for falls and implement fall prevention plan of care per policy 2. Provide and maintain a safe environment 3. Proper use of double Identifiers 4. Medication administration using the 5 rights 5. Hand hygiene 6. Specimens are labeled at the bedside 7. Instruct patient/ patient account manager sales representative about use of safety devices 8. Include patient/ patient account manager sales representative in decisions related to safety Outcome: Progressing Note: Evaluation of progress towards goal: Patient assessed for fall risk. Fall prevention plan implemented. Proper use of double identifiers. Proper use of hand hygiene. Proper use of SPH equipment when needed. Patient remains free from injury at this time Problem: Infection Goal: Absence of infection during hospitalization Description: INTERVENTIONS 1. Assess and monitor for signs and symptoms of infection. 2. Monitor lab/diagnostic results. 3. Monitor all insertion sites i.e., indwelling lines, tubes and drains. 4. Monitor endotracheal (as able) and nasal secretions for changes in amount and color. 5. Administer medications as ordered. 6. Instruct and encourage patient and family to use good hand hygiene technique. 7. Identify and instruct patient/patient account manager sales representative in use of appropriate isolation precautions for identified infection/symptoms. 8. Provide and discuss with patient/patient account manager sales representative on educational MDRO sheet. 9. Encourage and monitor nutritional status daily and consult concrete buster operator if indicated. 10. Implement neutropenic guidelines as needed. Outcome: Progressing Note: Evaluation of progress towards goal: Patient assessed and monitored for signs and symptoms of infection. Vital signs monitored. Labs monitored. Patient and family encouraged proper use of hand hygeine. Proper hand hygiene used per policy. Insertion sites monitored for any signs of infection. Patient remains free from infection at this time. Problem: Knowledge Deficit Goal: Patient/patient account manager sales representative demonstrates understanding of disease process, treatment plan, medications, and discharge instructions Description: INTERVENTIONS 1. Complete learning assessment and assess knowledge base 2. Provide teaching at level of understanding 3. Provide teaching via preferred learning method(s) Outcome: Progressing Note: Evaluation of progress towards goal: Patient learning needs assessed. Patient verbalizes understanding of the education that has been provided at this time. Problem: Discharge Planning Goal: Discharge to post-acute care, other facility, or home with appropriate resources Description: Patient's goal is: Discharge back to SNF INTERVENTIONS 1. Conduct assessment to determine patient/family and health care team treatment goals, and need for post-acute services based on payer coverage, community resources, and patient preferences, and barriers to discharge 2. Coordinate with Social work, Care Navigation, and Utilization Review to arrange appropriate level of services according to patient's needs based on patient preference and payer coverage in collaboration with the physician and health care team 3. Address psychosocial, clinical, and financial barriers to discharge as identified in assessment in conjunction with the patient/family and health care team 4. Consult appropriate ancillary services (i.e.. PT/OT/ST, etc) as needed 5. Communicate with and update the patient/family, physician, and health care team regarding progress on the discharge plan 6. Identify discharge learning needs (meds, wound care, etc). 7. Arrange for needed discharge transportation as appropriate Outcome: Progressing Note: Evaluation of progress towards goal: Patient discharge plan ongoing. Problem: Potential for Compromised Skin Integrity Goal: Skin integrity is maintained or improved Description: Patient's goal is: to have no new wounds INTERVENTIONS 1. Perform initial skin assessment on admission and as needed 2. Turn patient every 2 hours and PRN 3. Relieve pressure to bony prominences 4. Avoid shearing 5. Keep skin clean and dry 6. Alternate a full bath with partial baths for elderly 7. Apply lotion/moisturizer on skin 8. Monitor patient's hygiene practices 9. Float heels 10. Collaborate with interdisciplinary team and initiate plans and interventions as needed Outcome: Progressing Note: Evaluation of progress towards goal: Patient skin integrity maintained at this time. Wound care completed as ordered Goal: Patient's nutritional intake is adequate Description: Patient's goal is: to eat 50% of all meals INTERVENTIONS 1. Assess and monitor food intake and supplements, patient food preferences, nausea, vomiting, labs, oral cavity (gums, teeth, tongue, mucosa), proper denture fit, and cultural beliefs 2. Monitor for signs of hypoglycemia and hyperglycemia 3. Collaborate with interdisciplinary team and initiate plan and interventions as ordered 4. Monitor patient's weight 5. Assist patient with meals/food selection 6. Assist patient with eating 7. Allow adequate time for meals 8. Provide pleasant environment during mealtime 9. Increase social contact during mealtimes 10. Plan activities to conserve energy 11. Encourage/perform oral hygiene as appropriate 12. Encourage patient to take dietary supplement as ordered 13. Collaborate with clinical concrete buster operator 14. Include patient/ patient's account manager sales representative in decisions related to nutrition Outcome: Progressing Note: Evaluation of progress towards goal: Nutritional intake is adequate at this time. Problem: Urinary Incontinence Goal: Perineal skin integrity is maintained or improved Description: INTERVENTIONS 1. Assess genitourinary system, perineal skin, labs (urinalysis), and history of incontinence to include past management, aggravating, and alleviating factors 2. Keep skin clean and dry 3. Apply skin protectant 4. Develop skin care regimen 5. Provide privacy when changing patients incontinence device to maintain their dignity 6. Consider placing an indwelling catheter 7. Collaborate with interdisciplinary team and initiate plans and interventions as needed Outcome: Progressing Note: Evaluation of progress towards goal: Perineal skin integrity maintained at this time. Problem: Moderate - High Risk Fall Score Description: Joiner Fall Score of =/> [address] [facility] Re[facility] Assessment Goal: Patient should be free from fall Description: Interventions: 1. [place] to environment 2. Hourly rounds addressing the 4 P's (Pain, Positioning, Possessions, Potty) 3. Clear area of hazards (spills, clutter, electrical cords, unnecessary equipment) 4. Place equipment (bed & TV controls, call light, phone, urinal) within reach 5. Encourage patient to wear glasses and hearing aides as appropriate 6. Maintain bed in lowest position 7. Lock wheels on bed/wheelchair 8. Provide adequate lighting, including night light 9. Assess need for additional bedding, food/fluids, pain med's prior to sleep/routinely 10. Provide gripper slippers or personal non-skid footwear 11. Teach patient and patient account manager sales representative to maintain environment for safety and engage in all aspects of fall prevention program 12. Remind patient to call for help before getting out of bed 13. Initiate bed/chair/exit alarms supportive devices as appropriate, (chair wedge, no-skid floor mat, raised edge mattress, hip protectors) 14. Locate patient bed assignment for optimal visualization 15. Evaluate and identify Safe Patient Handling Equipment needs 16. Provide supervision when out of bed or chair 17. Utilize gait belt as needed to assist with ambulation 18. Place adaptive equipment (cane, walker) within reach 19. Request patient account manager sales representative bring adaptive equipment/mobility aids from home or obtain and provide as needed 20. Consult pharmacy regarding effects of med's affecting mobility, cognition, and alternatives 21. Obtain physician order for PT if risk factors associated with mobility are present 22. Obtain physician order for OT as appropriate 23. Utilize diversional activities 24. Educate patient and patient account manager sales representative how to maintain a safe environment during visitation times (notify nurse prior to leaving bedside) 25. Consider appropriateness of medical or non-medical assistant dermatology 26. Set up voiding schedule as appropriate (every 2 hours) Outcome: Progressing Note: Evaluation of progress towards goal: Patient calls out appropriately. Call light within reach. Bed in low and locked position. Non-slip footwear in place. Proper use of SPH equipment if needed to transfer patient. Patient remains free from falls at this time. Problem: Multi-Drug Resistant Organism / Rule-Out Infection Prevention Goal: Prevent transmission of infection Description: INTERVENTIONS 1. Place patient in private room or in room with patient with same disease 2. Discard single-use items 3. Clean reusable equipment between patients 4. Wear gloves for direct and indirect contact with patient or contaminants 5. Change gloves between tasks and procedures 6. Wash hands before and after caring for each patient 7. Wear appropriate personal protective equipment in relation to the indicated isolation type 8. Place appropriate isolation signage on patient's door 9. Provide patient/ patient account manager sales representative with isolation education. Outcome: Completed Note: Evaluation of progress towards goal: DISCHARGE PLANNING NOTE Discharge Plan: Return to [facility]. Patient receives HD at facility. No authorization needed to return. BLS transport needed. Barriers include: monitor hemoglobin. - Ciera Cartagena 05/19/24 10:36 AM DC order in, BLS transport set for 4pm. Dc packet completed. CRF sent to facility. - Ciera Cartagena 05/19/24 2:20 PM Cosigned by BENJAMIN Aguirre at 05/19/2024 2:21 PM EDT Associated attestation - Belinda Dupont LSW - 05/19/2024 2:21 PM EDT - BENJAMIN AGUIRRE 05/19/24 2:21 PM Problem: Pain Goal: Patient goal is pain score less than 4, able to rest, and participant in treatment plan as appropriate Description: INTERVENTIONS: 1. Encourage patient or legal account manager sales representative to report early pain and ask for pain medicine when needed 2. Assess pain using appropriate pain scale and include the scale used when documenting 3. Administer analgesics based on type and severity of pain and evaluate response within appropriate time frame 4. Implement non-pharmacological measures as appropriate and evaluate response 5. Consider cultural and social influences on pain and pain management 6. Notify LIP if interventions ineffective or patient reports new pain 7. Monitor vital signs including pulse ox, end-tidal CO2 based on pain intervention 8. Reassess pain per policy 9. Teach patient or legal account manager sales representative interventions for comforting Outcome: Progressing Note: Evaluation of progress towards goal: Patient reported improvement of pain symptoms with one time dose of oral pain medication. Problem: Safety Goal: Patient will be injury free during hospitalization Description: INTERVENTIONS: 1. Assess patient's risk for falls and implement fall prevention plan of care per policy 2. Provide and maintain a safe environment 3. Proper use of double Identifiers 4. Medication administration using the 5 rights 5. Hand hygiene 6. Specimens are labeled at the bedside 7. Instruct patient/ patient account manager sales representative about use of safety devices 8. Include patient/ patient account manager sales representative in decisions related to safety Outcome: Progressing Note: Evaluation of progress towards goal: Patient remains free from injury with call light in reach. Problem: Infection Goal: Absence of infection during hospitalization Description: INTERVENTIONS 1. Assess and monitor for signs and symptoms of infection. 2. Monitor lab/diagnostic results. 3. Monitor all insertion sites i.e., indwelling lines, tubes and drains. 4. Monitor endotracheal (as able) and nasal secretions for changes in amount and color. 5. Administer medications as ordered. 6. Instruct and encourage patient and family to use good hand hygiene technique. 7. Identify and instruct patient/patient account manager sales representative in use of appropriate isolation precautions for identified infection/symptoms. 8. Provide and discuss with patient/patient account manager sales representative on educational MDRO sheet. 9. Encourage and monitor nutritional status daily and consult concrete buster operator if indicated. 10. Implement neutropenic guidelines as needed. Outcome: Progressing Note: Evaluation of progress towards goal: Patient is afebrile. Problem: Pain Goal: Patient goal is pain score less than 4, able to rest, and participant in treatment plan as appropriate Description: INTERVENTIONS: 1. Encourage patient or legal account manager sales representative to report early pain and ask for pain medicine when needed 2. Assess pain using appropriate pain scale and include the scale used when documenting 3. Administer analgesics based on type and severity of pain and evaluate response within appropriate time frame 4. Implement non-pharmacological measures as appropriate and evaluate response 5. Consider cultural and social influences on pain and pain management 6. Notify LIP if interventions ineffective or patient reports new pain 7. Monitor vital signs including pulse ox, end-tidal CO2 based on pain intervention 8. Reassess pain per policy 9. Teach patient or legal account manager sales representative interventions for comforting Outcome: Progressing Note: Evaluation of progress towards goal: Patient denies pain this shift Problem: Safety Goal: Patient will be injury free during hospitalization Description: INTERVENTIONS: 1. Assess patient's risk for falls and implement fall prevention plan of care per policy 2. Provide and maintain a safe environment 3. Proper use of double Identifiers 4. Medication administration using the 5 rights 5. Hand hygiene 6. Specimens are labeled at the bedside 7. Instruct patient/ patient account manager sales representative about use of safety devices 8. Include patient/ patient account manager sales representative in decisions related to safety Outcome: Progressing Note: Evaluation of progress towards goal: Patient has sustained no injury Problem: Infection Goal: Absence of infection during hospitalization Description: INTERVENTIONS 1. Assess and monitor for signs and symptoms of infection. 2. Monitor lab/diagnostic results. 3. Monitor all insertion sites i.e., indwelling lines, tubes and drains. 4. Monitor endotracheal (as able) and nasal secretions for changes in amount and color. 5. Administer medications as ordered. 6. Instruct and encourage patient and family to use good hand hygiene technique. 7. Identify and instruct patient/patient account manager sales representative in use of appropriate isolation precautions for identified infection/symptoms. 8. Provide and discuss with patient/patient account manager sales representative on educational MDRO sheet. 9. Encourage and monitor nutritional status daily and consult concrete buster operator if indicated. 10. Implement neutropenic guidelines as needed. Outcome: Progressing Note: Evaluation of progress towards goal: No new signs or sx of infection noted. Problem: Knowledge Deficit Goal: Patient/patient account manager sales representative demonstrates understanding of disease process, treatment plan, medications, and discharge instructions Description: INTERVENTIONS 1. Complete learning assessment and assess knowledge base 2. Provide teaching at level of understanding 3. Provide teaching via preferred learning method(s) Outcome: Progressing Note: Evaluation of progress towards goal: Continue education and reinforcement of topics already educated Problem: Discharge Planning Goal: Discharge to post-acute care, other facility, or home with appropriate resources Description: Patient's goal is: Discharge back to SNF INTERVENTIONS 1. Conduct assessment to determine patient/family and health care team treatment goals, and need for post-acute services based on payer coverage, community resources, and patient preferences, and barriers to discharge 2. Coordinate with Social work, Care Navigation, and Utilization Review to arrange appropriate level of services according to patient's needs based on patient preference and payer coverage in collaboration with the physician and health care team 3. Address psychosocial, clinical, and financial barriers to discharge as identified in assessment in conjunction with the patient/family and health care team 4. Consult appropriate ancillary services (i.e.. PT/OT/ST, etc) as needed 5. Communicate with and update the patient/family, physician, and health care team regarding progress on the discharge plan 6. Identify discharge learning needs (meds, wound care, etc). 7. Arrange for needed discharge transportation as appropriate Outcome: Progressing Note: Evaluation of progress towards goal: Discharge planning ongoing. Problem: Potential for Compromised Skin Integrity Goal: Skin integrity is maintained or improved Description: Patient's goal is: to have no new wounds INTERVENTIONS 1. Perform initial skin assessment on admission and as needed 2. Turn patient every 2 hours and PRN 3. Relieve pressure to bony prominences 4. Avoid shearing 5. Keep skin clean and dry 6. Alternate a full bath with partial baths for elderly 7. Apply lotion/moisturizer on skin 8. Monitor patient's hygiene practices 9. Float heels 10. Collaborate with interdisciplinary team and initiate plans and interventions as needed Outcome: Progressing Note: Evaluation of progress towards goal: No new areas of skin breakdown noted. Goal: Patient's nutritional intake is adequate Description: Patient's goal is: to eat 50% of all meals INTERVENTIONS 1. Assess and monitor food intake and supplements, patient food preferences, nausea, vomiting, labs, oral cavity (gums, teeth, tongue, mucosa), proper denture fit, and cultural beliefs 2. Monitor for signs of hypoglycemia and hyperglycemia 3. Collaborate with interdisciplinary team and initiate plan and interventions as ordered 4. Monitor patient's weight 5. Assist patient with meals/food selection 6. Assist patient with eating 7. Allow adequate time for meals 8. Provide pleasant environment during mealtime 9. Increase social contact during mealtimes 10. Plan activities to conserve energy 11. Encourage/perform oral hygiene as appropriate 12. Encourage patient to take dietary supplement as ordered 13. Collaborate with clinical concrete buster operator 14. Include patient/ patient's account manager sales representative in decisions related to nutrition Outcome: Progressing Note: Evaluation of progress towards goal: Patient's nutrition has been adequate. Problem: Urinary Incontinence Goal: Perineal skin integrity is maintained or improved Description: INTERVENTIONS 1. Assess genitourinary system, perineal skin, labs (urinalysis), and history of incontinence to include past management, aggravating, and alleviating factors 2. Keep skin clean and dry 3. Apply skin protectant 4. Develop skin care regimen 5. Provide privacy when changing patients incontinence device to maintain their dignity 6. Consider placing an indwelling catheter 7. Collaborate with interdisciplinary team and initiate plans and interventions as needed Outcome: Progressing Note: Evaluation of progress towards goal: No new areas of skin breakdown noted. Problem: Moderate - High Risk Fall Score Description: Joiner Fall Score of =/> [address] [facility] Re[facility] Assessment Goal: Patient should be free from fall Description: Interventions: 1. [place] to environment 2. Hourly rounds addressing the 4 P's (Pain, Positioning, Possessions, Potty) 3. Clear area of hazards (spills, clutter, electrical cords, unnecessary equipment) 4. Place equipment (bed & TV controls, call light, phone, urinal) within reach 5. Encourage patient to wear glasses and hearing aides as appropriate 6. Maintain bed in lowest position 7. Lock wheels on bed/wheelchair 8. Provide adequate lighting, including night light 9. Assess need for additional bedding, food/fluids, pain med's prior to sleep/routinely 10. Provide gripper slippers or personal non-skid footwear 11. Teach patient and patient account manager sales representative to maintain environment for safety and engage in all aspects of fall prevention program 12. Remind patient to call for help before getting out of bed 13. Initiate bed/chair/exit alarms supportive devices as appropriate, (chair wedge, no-skid floor mat, raised edge mattress, hip protectors) 14. Locate patient bed assignment for optimal visualization 15. Evaluate and identify Safe Patient Handling Equipment needs 16. Provide supervision when out of bed or chair 17. Utilize gait belt as needed to assist with ambulation 18. Place adaptive equipment (cane, walker) within reach 19. Request patient account manager sales representative bring adaptive equipment/mobility aids from home or obtain and provide as needed 20. Consult pharmacy regarding effects of med's affecting mobility, cognition, and alternatives 21. Obtain physician order for PT if risk factors associated with mobility are present 22. Obtain physician order for OT as appropriate 23. Utilize diversional activities 24. Educate patient and patient account manager sales representative how to maintain a safe environment during visitation times (notify nurse prior to leaving bedside) 25. Consider appropriateness of medical or non-medical assistant dermatology 26. Set up voiding schedule as appropriate (every 2 hours) Outcome: Progressing Note: Evaluation of progress towards goal: Patient has been free from falls Problem: Respiratory - Adult Goal: Achieves optimal ventilation and oxygenation Description: Patient's goal is: Maintain O2 sats > 90 INTERVENTIONS: 1. Assess for changes in respiratory status 2. Assess for changes in mentation and behavior 3. Position to facilitate oxygenation and minimize respiratory effort 4. Oxygen supplementation based on oxygen saturation or ABGs as ordered 5. Consult smoking cessation as indicated 6. Encourage broncho-pulmonary hygiene including cough, deep breathe, Incentive Spirometry, keep HOB elevated as tolerated, and encourage ambulation, as ordered 7. Assess the need for suctioning and obtain order to maintain clear airway 8. Assess and instruct patient to report SOB or any respiratory difficulty 9. Assess the need for Respiratory Therapy support if not already ordered 10. Initiate emergency measures for respiratory failure Outcome: Progressing Note: Evaluation of progress towards goal: Patient has maintained a clear airway. They have had no episodes of respiratory distress this shift. Problem: Metabolic/Fluid and Electrolytes - Adult Goal: Electrolytes maintained within normal limits Description: INTERVENTIONS 1. Monitor for signs and symptoms of hypovolemia (tachycardia, rapid breathing, decreased urine output, postural hypotension, sunken fontanel) 2. Monitor for signs and symptoms of hypervolemia (strong rapid pulse, rapid breathing, crackles heard in lung pate, edema, decreased urine output, sudden weight gain, distended neck veins in older children, enlarged liver and spleen) 1. Monitor intake and output 2. Monitor pt's weight 1. Monitor labs and assess patient for signs and symptoms of electrolyte imbalances 2. Administer electrolyte replacement as ordered 3. Monitor response to electrolyte replacements, including repeat lab results as appropriate 4. Fluid restriction or hydration as ordered 5. Instruct patient/ legal account manager sales representative on nutrition/diet; fluid/hydration restrictions as appropriate Outcome: Progressing Note: Evaluation of progress towards goal: Potassium remains slightly elevated. MD aware and patient had dialysis Problem: Skin/Tissue Integrity - Adult Goal: Incisions, wounds, or drain sites healing without S/S of infection Description: INTERVENTIONS 1. ADMISSION & EVERY SHIFT: Assess and document risk factors for pressure ulcer development utilizing the Forrest/Forrest Q scale 2. Assess and document skin integrity 3. Assess and document dressing/incision, wound bed, drain sites and surrounding tissue 4. Implement wound care per orders 5. Initiate isolation precautions as appropriate 6. Initiate high risk precautions Outcome: Progressing Note: Evaluation of progress towards goal: Skin remains intact Problem: Multi-Drug Resistant Organism / Rule-Out Infection Prevention Goal: Prevent transmission of infection Description: INTERVENTIONS 1. Place patient in private room or in room with patient with same disease 2. Discard single-use items 3. Clean reusable equipment between patients 4. Wear gloves for direct and indirect contact with patient or contaminants 5. Change gloves between tasks and procedures 6. Wash hands before and after caring for each patient 7. Wear appropriate personal protective equipment in relation to the indicated isolation type 8. Place appropriate isolation signage on patient's door 9. Provide patient/ patient account manager sales representative with isolation education. Outcome: Progressing Note: Evaluation of progress towards goal: No new signs or sx of infection noted. Problem: Inadequate Breathing Pattern Goal: Patient will achieve/maintain normal respiratory rate/effort Description: Patient's goal is: Maintain O2 sats >90 INTERVENTIONS 1. Assess and monitor respiratory rate, effort, breathing pattern, and oxygenation 2. Monitor patient for restlessness, anxiety, air hunger 3. Assess physical activity tolerance 4. Assess tobacco history; ask, advise, and refer as appropriate 5. Collaborate with interdisciplinary team and initiate plans/interventions as needed Outcome: Progressing Note: Evaluation of progress towards goal: Patient has maintained a clear airway. They have had no episodes of respiratory distress this shift. Problem: Inadequate Breathing Pattern Goal: Patient will achieve/maintain normal respiratory rate/effort Description: Patient's goal is: INTERVENTIONS 1. Assess and monitor respiratory rate, effort, breathing pattern, and oxygenation 2. Monitor patient for restlessness, anxiety, air hunger 3. Assess physical activity tolerance 4. Assess tobacco history; ask, advise, and refer as appropriate 5. Collaborate with interdisciplinary team and initiate plans/interventions as needed Outcome: Progressing Note: Evaluation of progress towards goal: stable on ra Respiratory Therapy Clinical Practice Guidelines Consult Clinical Practice Guidelines Ordered Consult Assessment: Consult, Bronchodilator Bronchodilator Indications: Bronchospasm/wheezing Bronchodilator Total: 1 Vital Signs Pulse: 89 Resp: 16 SpO2: 100 % O2 Device: None (Room air) Respiratory Assessment Assessment Type: Subsequent assessment Level of Consciousness: Alert Respiratory Pattern: Regular Chest Assessment: Chest expansion symmetrical Bilateral Breath Sounds: Clear, Diminished Patient Active Problem List Diagnosis Personal history of DVT (deep vein thrombosis) Closed fracture of femur with nonunion Charcot's arthropathy Anemia of chronic disease Chronic renal impairment, stage 4 (severe) ([facility]) End stage renal disease ([facility]) ESRD (end stage renal disease) ([facility]) Family history of MS (multiple sclerosis) Chronic indwelling Douglas catheter Leukocytosis Morbid obesity ([facility]) MS (multiple sclerosis) ([facility]) Traumatic ulcer of left lower extremity with fat layer exposed ([facility] [place] Traumatic ulcer of right lower extremity with fat layer exposed ([facility] [place]) Dermatitis associated with moisture Lymphedema AV fistula stenosis ([facility] [place]) Pseudoaneurysm following procedure ([facility]) Anxiety and depression Carpal tunnel syndrome Chronic back pain Congenital pes planus DDD (degenerative disc disease), lumbar Disturbance of skin sensation Enthesopathy of hip region Facet arthritis of lumbar region Lack of coordination Neurogenic bladder Numbness Osteoporosis Pain in limb Peripheral neuropathy Polyneuropathy Radicular pain Radiculopathy, lumbosacral region Ulnar nerve abnormality Chronic fatigue Debility Pressure injury of right calf, stage 3 ([facility]) Wound infection Last Chest XRAY: Reviewed Pulmonary History: none RT Reassessment Due In: prn Bronchodilator Respiratory Rate Level 1: Less than 20 Dyspnea Level 1: No SOB Breath Sounds Level 1: Clear Respiratory History Level 1: None Oxygen to Keep SpO2 Greater Than Or Equal To 92% Level 1: Room air or baseline O2 ; NIV less than or equal to 40% Peak Flow ([facility] Only) Patients Current Level & Intervention: 1 Every 4 hours PRN for wheezing via nebulizer DISCHARGE PLANNING NOTE Case discussed in daily transition rounds and chart reviewed by CN. Barriers to discharge include blood cultures pending Discharge Plan remains: return to [facility] in [facility]. Pt is a long-term resident there. She receives HD at facility. Checking with facility if auth is needed prior to pt's return. CN will continue to follow and is available should any further needs arise. - Belinda Odom RN 05/18/24 10:36 AM Addendum: Per facility, no auth needed to return. - Belinda Odom RN 05/18/24 4:19 PM Images from the original note were not included. Plan of Care Note - [facility] Attempted to see patient today for new consult on RLE wounds. Unable to complete visit as patient not in room/off unit at time of rounding. Will re attempt assessment tomorrow. Patient otherwise may continue skin/wound care as ordered by the bedside nurse team and discharge when ready per wound care perspective. G[facility] [id number] Secure Chat or page [phone] GINA Kim 05/18/24 1602 Problem: Pain Goal: Patient goal is pain score less than 4, able to rest, and participant in treatment plan as appropriate Description: INTERVENTIONS: 1. Encourage patient or legal account manager sales representative to report early pain and ask for pain medicine when needed 2. Assess pain using appropriate pain scale and include the scale used when documenting 3. Administer analgesics based on type and severity of pain and evaluate response within appropriate time frame 4. Implement non-pharmacological measures as appropriate and evaluate response 5. Consider cultural and social influences on pain and pain management 6. Notify LIP if interventions ineffective or patient reports new pain 7. Monitor vital signs including pulse ox, end-tidal CO2 based on pain intervention 8. Reassess pain per policy 9. Teach patient or legal account manager sales representative interventions for comforting Outcome: Progressing Note: Evaluation of progress towards goal: Denied pain Problem: Safety Goal: Patient will be injury free during hospitalization Description: INTERVENTIONS: 1. Assess patient's risk for falls and implement fall prevention plan of care per policy 2. Provide and maintain a safe environment 3. Proper use of double Identifiers 4. Medication administration using the 5 rights 5. Hand hygiene 6. Specimens are labeled at the bedside 7. Instruct patient/ patient account manager sales representative about use of safety devices 8. Include patient/ patient account manager sales representative in decisions related to safety Outcome: Progressing Note: Evaluation of progress towards goal: remains free of injury. Safety maintained. Problem: Infection Goal: Absence of infection during hospitalization Description: INTERVENTIONS 1. Assess and monitor for signs and symptoms of infection. 2. Monitor lab/diagnostic results. 3. Monitor all insertion sites i.e., indwelling lines, tubes and drains. 4. Monitor endotracheal (as able) and nasal secretions for changes in amount and color. 5. Administer medications as ordered. 6. Instruct and encourage patient and family to use good hand hygiene technique. 7. Identify and instruct patient/patient account manager sales representative in use of appropriate isolation precautions for identified infection/symptoms. 8. Provide and discuss with patient/patient account manager sales representative on educational MDRO sheet. 9. Encourage and monitor nutritional status daily and consult concrete buster operator if indicated. 10. Implement neutropenic guidelines as needed. Outcome: Progressing Note: Evaluation of progress towards goal: PT lab values and vitals monitored for signs of infection. Problem: Knowledge Deficit Goal: Patient/patient account manager sales representative demonstrates understanding of disease process, treatment plan, medications, and discharge instructions Description: INTERVENTIONS 1. Complete learning assessment and assess knowledge base 2. Provide teaching at level of understanding 3. Provide teaching via preferred learning method(s) Outcome: Progressing Note: Evaluation of progress towards goal: Verbalized understanding of disease process and treatments. Problem: Discharge Planning Goal: Discharge to post-acute care, other facility, or home with appropriate resources Description: Patient's goal is: INTERVENTIONS 1. Conduct assessment to determine patient/family and health care team treatment goals, and need for post-acute services based on payer coverage, community resources, and patient preferences, and barriers to discharge 2. Coordinate with Social work, Care Navigation, and Utilization Review to arrange appropriate level of services according to patient's needs based on patient preference and payer coverage in collaboration with the physician and health care team 3. Address psychosocial, clinical, and financial barriers to discharge as identified in assessment in conjunction with the patient/family and health care team 4. Consult appropriate ancillary services (i.e.. PT/OT/ST, etc) as needed 5. Communicate with and update the patient/family, physician, and health care team regarding progress on the discharge plan 6. Identify discharge learning needs (meds, wound care, etc). 7. Arrange for needed discharge transportation as appropriate Outcome: Progressing Note: Evaluation of progress towards goal: patient will be discharge to SNF Problem: Glucose Imbalance Goal: Clinical indication of glucose balance is achieved Description: Patient's goal is: INTERVENTIONS 1. Monitor blood glucose levels as ordered 2. Administer medications as ordered 3. Notify physician of ineffective treatment plan Outcome: Progressing Note: Evaluation of progress towards goal: blood glucose monitored Goal: Patient's discharge needs are met Description: Patient's goal is: INTERVENTIONS 1. Assess patient for self-management skills 2. Encourage participation in diabetes management 3. Identify potential discharge barriers on admission and throughout hospital stay 4. Involve patient/S.O. in discharge planning process 5. Communicate referral to hematology nurse educator as appropriate 6. Communicate referral to concrete buster operator as appropriate 7. Collaborate with case management/drug abuse social worker for discharge needs Outcome: Progressing Note: Evaluation of progress towards goal: patient will be discharge to SNF Problem: Potential for Compromised Skin Integrity Goal: Skin integrity is maintained or improved Description: Patient's goal is: INTERVENTIONS 1. Perform initial skin assessment on admission and as needed 2. Turn patient every 2 hours and PRN 3. Relieve pressure to bony prominences 4. Avoid shearing 5. Keep skin clean and dry 6. Alternate a full bath with partial baths for elderly 7. Apply lotion/moisturizer on skin 8. Monitor patient's hygiene practices 9. Float heels 10. Collaborate with interdisciplinary team and initiate plans and interventions as needed Outcome: Progressing Note: Evaluation of progress towards goal: remains free of injury. Safety maintained. Goal: Patient's nutritional intake is adequate Description: Patient's goal is: INTERVENTIONS 1. Assess and monitor food intake and supplements, patient food preferences, nausea, vomiting, labs, oral cavity (gums, teeth, tongue, mucosa), proper denture fit, and cultural beliefs 2. Monitor for signs of hypoglycemia and hyperglycemia 3. Collaborate with interdisciplinary team and initiate plan and interventions as ordered 4. Monitor patient's weight 5. Assist patient with meals/food selection 6. Assist patient with eating 7. Allow adequate time for meals 8. Provide pleasant environment during mealtime 9. Increase social contact during mealtimes 10. Plan activities to conserve energy 11. Encourage/perform oral hygiene as appropriate 12. Encourage patient to take dietary supplement as ordered 13. Collaborate with clinical concrete buster operator 14. Include patient/ patient's account manager sales representative in decisions related to nutrition Outcome: Progressing Note: Evaluation of progress towards goal: Patient encouraged to eat meals Problem: Urinary Incontinence Goal: Perineal skin integrity is maintained or improved Description: INTERVENTIONS 1. Assess genitourinary system, perineal skin, labs (urinalysis), and history of incontinence to include past management, aggravating, and alleviating factors 2. Keep skin clean and dry 3. Apply skin protectant 4. Develop skin care regimen 5. Provide privacy when changing patients incontinence device to maintain their dignity 6. Consider placing an indwelling catheter 7. Collaborate with interdisciplinary team and initiate plans and interventions as needed Outcome: Progressing Note: Evaluation of progress towards goal: perineal skin integrity maintained. Ointments applied Problem: Moderate - High Risk Fall Score Description: Joiner Fall Score of =/> [address] [facility] Assessment Goal: Patient should be free from fall Description: Interventions: 1. [place] to environment 2. Hourly rounds addressing the 4 P's (Pain, Positioning, Possessions, Potty) 3. Clear area of hazards (spills, clutter, electrical cords, unnecessary equipment) 4. Place equipment (bed & TV controls, call light, phone, urinal) within reach 5. Encourage patient to wear glasses and hearing aides as appropriate 6. Maintain bed in lowest position 7. Lock wheels on bed/wheelchair 8. Provide adequate lighting, including night light 9. Assess need for additional bedding, food/fluids, pain med's prior to sleep/routinely 10. Provide gripper slippers or personal non-skid footwear 11. Teach patient and patient account manager sales representative to maintain environment for safety and engage in all aspects of fall prevention program 12. Remind patient to call for help before getting out of bed 13. Initiate bed/chair/exit alarms supportive devices as appropriate, (chair wedge, no-skid floor mat, raised edge mattress, hip protectors) 14. Locate patient bed assignment for optimal visualization 15. Evaluate and identify Safe Patient Handling Equipment needs 16. Provide supervision when out of bed or chair 17. Utilize gait belt as needed to assist with ambulation 18. Place adaptive equipment (cane, walker) within reach 19. Request patient account manager sales representative bring adaptive equipment/mobility aids from home or obtain and provide as needed 20. Consult pharmacy regarding effects of med's affecting mobility, cognition, and alternatives 21. Obtain physician order for PT if risk factors associated with mobility are present 22. Obtain physician order for OT as appropriate 23. Utilize diversional activities 24. Educate patient and patient account manager sales representative how to maintain a safe environment during visitation times (notify nurse prior to leaving bedside) 25. Consider appropriateness of medical or non-medical assistant dermatology 26. Set up voiding schedule as appropriate (every 2 hours) Outcome: Progressing Note: Evaluation of progress towards goal: Remains free of fall. Call light and personal belongings are within reach. Bed in low position and wheels are locked. Hourly rounding maintained. Problem: Respiratory - Adult Goal: Achieves optimal ventilation and oxygenation Description: Patient's goal is: INTERVENTIONS: 1. Assess for changes in respiratory status 2. Assess for changes in mentation and behavior 3. Position to facilitate oxygenation and minimize respiratory effort 4. Oxygen supplementation based on oxygen saturation or ABGs as ordered 5. Consult smoking cessation as indicated 6. Encourage broncho-pulmonary hygiene including cough, deep breathe, Incentive Spirometry, keep HOB elevated as tolerated, and encourage ambulation, as ordered 7. Assess the need for suctioning and obtain order to maintain clear airway 8. Assess and instruct patient to report SOB or any respiratory difficulty 9. Assess the need for Respiratory Therapy support if not already ordered 10. Initiate emergency measures for respiratory failure Outcome: Progressing Note: Evaluation of progress towards goal: optimal ventilation achieved Problem: Metabolic/Fluid and Electrolytes - Adult Goal: Electrolytes maintained within normal limits Description: INTERVENTIONS 1. Monitor for signs and symptoms of hypovolemia (tachycardia, rapid breathing, decreased urine output, postural hypotension, sunken fontanel) 2. Monitor for signs and symptoms of hypervolemia (strong rapid pulse, rapid breathing, crackles heard in lung pate, edema, decreased urine output, sudden weight gain, distended neck veins in older children, enlarged liver and spleen) 1. Monitor intake and output 2. Monitor pt's weight 1. Monitor labs and assess patient for signs and symptoms of electrolyte imbalances 2. Administer electrolyte replacement as ordered 3. Monitor response to electrolyte replacements, including repeat lab results as appropriate 4. Fluid restriction or hydration as ordered 5. Instruct patient/ legal account manager sales representative on nutrition/diet; fluid/hydration restrictions as appropriate Outcome: Progressing Note: Evaluation of progress towards goal: electrolytes monitored and replaced as needed Problem: Skin/Tissue Integrity - Adult Goal: Incisions, wounds, or drain sites healing without S/S of infection Description: INTERVENTIONS 1. ADMISSION & EVERY SHIFT: Assess and document risk factors for pressure ulcer development utilizing the Forrest/Forrest Q scale 2. Assess and document skin integrity 3. Assess and document dressing/incision, wound bed, drain sites and surrounding tissue 4. Implement wound care per orders 5. Initiate isolation precautions as appropriate 6. Initiate high risk precautions Outcome: Progressing Note: Evaluation of progress towards goal: wounds are healing Problem: Multi-Drug Resistant Organism / Rule-Out Infection Prevention Goal: Prevent transmission of infection Description: INTERVENTIONS 1. Place patient in private room or in room with patient with same disease 2. Discard single-use items 3. Clean reusable equipment between patients 4. Wear gloves for direct and indirect contact with patient or contaminants 5. Change gloves between tasks and procedures 6. Wash hands before and after caring for each patient 7. Wear appropriate personal protective equipment in relation to the indicated isolation type 8. Place appropriate isolation signage on patient's door 9. Provide patient/ patient account manager sales representative with isolation education. Outcome: Progressing Note: Evaluation of progress towards goal: standard precaution maintained DISCHARGE PLANNING NOTE Referral for return sent to [facility], [facility], [facility] in [place] (P# ; F# ) DISCHARGE PLANNING NOTE SW met with patient, introduced self and explained role. Patient confirmed she lives terminal carman at [facility] in [place], [place]. Patient will require BLS transport to go back. Unsure if patient will need auth to return to SNF. Patient receives HD at facility. [facility] tasked to send referral back to [facility]. SW will continue to follow for additional needs - BENJAMIN AGUIRRE 05/17/24 10:13 AM Problem: Pain Goal: Patient goal is pain score less than 4, able to rest, and participant in treatment plan as appropriate Description: INTERVENTIONS: 1. Encourage patient or legal account manager sales representative to report early pain and ask for pain medicine when needed 2. Assess pain using appropriate pain scale and include the scale used when documenting 3. Administer analgesics based on type and severity of pain and evaluate response within appropriate time frame 4. Implement non-pharmacological measures as appropriate and evaluate response 5. Consider cultural and social influences on pain and pain management 6. Notify LIP if interventions ineffective or patient reports new pain 7. Monitor vital signs including pulse ox, end-tidal CO2 based on pain intervention 8. Reassess pain per policy 9. Teach patient or legal account manager sales representative interventions for comforting [id number] by JAMEL Jacobson Outcome: Progressing Note: Evaluation of progress towards goal: medicated for pain as needed [id number]/17/[id number] by JAMEL Jacobson Outcome: Progressing Note: Evaluation of progress towards goal: denied pain Problem: Safety Goal: Patient will be injury free during hospitalization Description: INTERVENTIONS: 1. Assess patient's risk for falls and implement fall prevention plan of care per policy 2. Provide and maintain a safe environment 3. Proper use of double Identifiers 4. Medication administration using the 5 rights 5. Hand hygiene 6. Specimens are labeled at the bedside 7. Instruct patient/ patient account manager sales representative about use of safety devices 8. Include patient/ patient account manager sales representative in decisions related to safety [id number] by JAMEL Jacobson Outcome: Progressing Note: Evaluation of progress towards goal: remains free of injury. Safety maintained. 05/17/2024506 by JAMEL Jacobson Outcome: Progressing Note: Evaluation of progress towards goal: remains free of injury. Safety maintained. Problem: Infection Goal: Absence of infection during hospitalization Description: INTERVENTIONS 1. Assess and monitor for signs and symptoms of infection. 2. Monitor lab/diagnostic results. 3. Monitor all insertion sites i.e., indwelling lines, tubes and drains. 4. Monitor endotracheal (as able) and nasal secretions for changes in amount and color. 5. Administer medications as ordered. 6. Instruct and encourage patient and family to use good hand hygiene technique. 7. Identify and instruct patient/patient account manager sales representative in use of appropriate isolation precautions for identified infection/symptoms. 8. Provide and discuss with patient/patient account manager sales representative on educational MDRO sheet. 9. Encourage and monitor nutritional status daily and consult concrete buster operator if indicated. 10. Implement neutropenic guidelines as needed. 05/17/2024645 by JAMEL Jacobson Outcome: Progressing Note: Evaluation of progress towards goal: PT lab values and vitals monitored for signs of infection. 05/17/2024506 by JAMEL Jacobson Outcome: Progressing Note: Evaluation of progress towards goal: PT lab values and vitals monitored for signs of infection. Problem: Knowledge Deficit Goal: Patient/patient account manager sales representative demonstrates understanding of disease process, treatment plan, medications, and discharge instructions Description: INTERVENTIONS 1. Complete learning assessment and assess knowledge base 2. Provide teaching at level of understanding 3. Provide teaching via preferred learning method(s) 05/17/2024645 by JAMEL Jacobson Outcome: Progressing Note: Evaluation of progress towards goal: Verbalized understanding of disease process and treatments. 05/17/2024506 by JAMEL Jacobson Outcome: Progressing Note: Evaluation of progress towards goal: patient needs education reinforcement Problem: Discharge Planning Goal: Discharge to post-acute care, other facility, or home with appropriate resources Description: Patient's goal is: INTERVENTIONS 1. Conduct assessment to determine patient/family and health care team treatment goals, and need for post-acute services based on payer coverage, community resources, and patient preferences, and barriers to discharge 2. Coordinate with Social work, Care Navigation, and Utilization Review to arrange appropriate level of services according to patient's needs based on patient preference and payer coverage in collaboration with the physician and health care team 3. Address psychosocial, clinical, and financial barriers to discharge as identified in assessment in conjunction with the patient/family and health care team 4. Consult appropriate ancillary services (i.e.. PT/OT/ST, etc) as needed 5. Communicate with and update the patient/family, physician, and health care team regarding progress on the discharge plan 6. Identify discharge learning needs (meds, wound care, etc). 7. Arrange for needed discharge transportation as appropriate 05/17/2024645 by JAMEL Jacobson Outcome: Progressing Note: Evaluation of progress towards goal: patient will be discharge to SNF 05/17/2024506 by JAMEL Jacobson Outcome: Progressing Note: Evaluation of progress towards goal: patient will be discharge to SNF Problem: Glucose Imbalance Goal: Clinical indication of glucose balance is achieved Description: Patient's goal is: INTERVENTIONS 1. Monitor blood glucose levels as ordered 2. Administer medications as ordered 3. Notify physician of ineffective treatment plan 05/17/2024645 by JAMEL Jacobson Outcome: Progressing Note: Evaluation of progress towards goal: blood glucose monitored 05/17/2024506 by JAMEL Jacobson Outcome: Progressing Note: Evaluation of progress towards goal: blood glucose monitored Goal: Patient's discharge needs are met Description: Patient's goal is: INTERVENTIONS 1. Assess patient for self-management skills 2. Encourage participation in diabetes management 3. Identify potential discharge barriers on admission and throughout hospital stay 4. Involve patient/S.O. in discharge planning process 5. Communicate referral to hematology nurse educator as appropriate 6. Communicate referral to concrete buster operator as appropriate 7. Collaborate with case management/drug abuse social worker for discharge needs 05/17/2024645 by JAMEL Jacobson Outcome: Progressing Note: Evaluation of progress towards goal: All patient's discharge needs are met 05/17/2024506 by JAMEL Jacobson Outcome: Progressing Note: Evaluation of progress towards goal: All patient's discharge needs are met Problem: Potential for Compromised Skin Integrity Goal: Skin integrity is maintained or improved Description: Patient's goal is: INTERVENTIONS 1. Perform initial skin assessment on admission and as needed 2. Turn patient every 2 hours and PRN 3. Relieve pressure to bony prominences 4. Avoid shearing 5. Keep skin clean and dry 6. Alternate a full bath with partial baths for elderly 7. Apply lotion/moisturizer on skin 8. Monitor patient's hygiene practices 9. Float heels 10. Collaborate with interdisciplinary team and initiate plans and interventions as needed 05/17/2024645 by JAMEL Jacobson Outcome: Progressing Note: Evaluation of progress towards goal: Skin integrity maintained. Q 2 hours turns maintained. 05/17/2024506 by JAMEL Jacobson Outcome: Progressing Note: Evaluation of progress towards goal: Skin integrity maintained. Q 2 hours turns maintained. Goal: Patient's nutritional intake is adequate Description: Patient's goal is: INTERVENTIONS 1. Assess and monitor food intake and supplements, patient food preferences, nausea, vomiting, labs, oral cavity (gums, teeth, tongue, mucosa), proper denture fit, and cultural beliefs 2. Monitor for signs of hypoglycemia and hyperglycemia 3. Collaborate with interdisciplinary team and initiate plan and interventions as ordered 4. Monitor patient's weight 5. Assist patient with meals/food selection 6. Assist patient with eating 7. Allow adequate time for meals 8. Provide pleasant environment during mealtime 9. Increase social contact during mealtimes 10. Plan activities to conserve energy 11. Encourage/perform oral hygiene as appropriate 12. Encourage patient to take dietary supplement as ordered 13. Collaborate with clinical concrete buster operator 14. Include patient/ patient's account manager sales representative in decisions related to nutrition 05/17/2024645 by JAMEL Jacobson Outcome: Progressing Note: Evaluation of progress towards goal: Patient encouraged to eat meals 05/17/2024506 by JAMEL Jacobson Outcome: Progressing Note: Evaluation of progress towards goal: Patient encouraged to eat meals Problem: Urinary Incontinence Goal: Perineal skin integrity is maintained or improved Description: INTERVENTIONS 1. Assess genitourinary system, perineal skin, labs (urinalysis), and history of incontinence to include past management, aggravating, and alleviating factors 2. Keep skin clean and dry 3. Apply skin protectant 4. Develop skin care regimen 5. Provide privacy when changing patients incontinence device to maintain their dignity 6. Consider placing an indwelling catheter 7. Collaborate with interdisciplinary team and initiate plans and interventions as needed 05/17/2024645 by JAMEL Jacobson Outcome: Progressing Note: Evaluation of progress towards goal: perineal skin integrity maintained. Ointments applied 05/17/2024506 by JAMEL Jacobson Outcome: Progressing Note: Evaluation of progress towards goal: perineal skin integrity maintained. Ointments applied Problem: Moderate - High Risk Fall Score Description: Joiner Fall Score of =/> [address] [facility] Assessment Goal: Patient should be free from fall Description: Interventions: 1. [place] to environment 2. Hourly rounds addressing the 4 P's (Pain, Positioning, Possessions, Potty) 3. Clear area of hazards (spills, clutter, electrical cords, unnecessary equipment) 4. Place equipment (bed & TV controls, call light, phone, urinal) within reach 5. Encourage patient to wear glasses and hearing aides as appropriate 6. Maintain bed in lowest position 7. Lock wheels on bed/wheelchair 8. Provide adequate lighting, including night light 9. Assess need for additional bedding, food/fluids, pain med's prior to sleep/routinely 10. Provide gripper slippers or personal non-skid footwear 11. Teach patient and patient account manager sales representative to maintain environment for safety and engage in all aspects of fall prevention program 12. Remind patient to call for help before getting out of bed 13. Initiate bed/chair/exit alarms supportive devices as appropriate, (chair wedge, no-skid floor mat, raised edge mattress, hip protectors) 14. Locate patient bed assignment for optimal visualization 15. Evaluate and identify Safe Patient Handling Equipment needs 16. Provide supervision when out of bed or chair 17. Utilize gait belt as needed to assist with ambulation 18. Place adaptive equipment (cane, walker) within reach 19. Request patient account manager sales representative bring adaptive equipment/mobility aids from home or obtain and provide as needed 20. Consult pharmacy regarding effects of med's affecting mobility, cognition, and alternatives 21. Obtain physician order for PT if risk factors associated with mobility are present 22. Obtain physician order for OT as appropriate 23. Utilize diversional activities 24. Educate patient and patient account manager sales representative how to maintain a safe environment during visitation times (notify nurse prior to leaving bedside) 25. Consider appropriateness of medical or non-medical assistant dermatology 26. Set up voiding schedule as appropriate (every 2 hours) 05/17/2024 0646 by JAMEL Jacobson Outcome: Progressing Note: Evaluation of progress towards goal: Remains free of fall. Call light and personal belongings are within reach. Bed in low position and wheels are locked. Hourly rounding maintained. 05/17/2024 0507 by JAMEL Jacobson Outcome: Progressing Note: Evaluation of progress towards goal: Remains free of fall. Call light and personal belongings are within reach. Bed in low position and wheels are locked. Hourly rounding maintained. Problem: Respiratory - Adult Goal: Achieves optimal ventilation and oxygenation Description: Patient's goal is: INTERVENTIONS: 1. Assess for changes in respiratory status 2. Assess for changes in mentation and behavior 3. Position to facilitate oxygenation and minimize respiratory effort 4. Oxygen supplementation based on oxygen saturation or ABGs as ordered 5. Consult smoking cessation as indicated 6. Encourage broncho-pulmonary hygiene including cough, deep breathe, Incentive Spirometry, keep HOB elevated as tolerated, and encourage ambulation, as ordered 7. Assess the need for suctioning and obtain order to maintain clear airway 8. Assess and instruct patient to report SOB or any respiratory difficulty 9. Assess the need for Respiratory Therapy support if not already ordered 10. Initiate emergency measures for respiratory failure 05/17/2024645 by JAMEL Jacobson Outcome: Progressing Note: Evaluation of progress towards goal: optimal ventilation achieves 05/17/2024 050 by JAMEL Jacobson Outcome: Progressing Note: Evaluation of progress towards goal: optimal oxygenation achieves via [place] Problem: Metabolic/Fluid and Electrolytes - Adult Goal: Electrolytes maintained within normal limits Description: INTERVENTIONS 1. Monitor for signs and symptoms of hypovolemia (tachycardia, rapid breathing, decreased urine output, postural hypotension, sunken fontanel) 2. Monitor for signs and symptoms of hypervolemia (strong rapid pulse, rapid breathing, crackles heard in lung ptae, edema, decreased urine output, sudden weight gain, distended neck veins in older children, enlarged liver and spleen) 1. Monitor intake and output 2. Monitor pt's weight 1. Monitor labs and assess patient for signs and symptoms of electrolyte imbalances 2. Administer electrolyte replacement as ordered 3. Monitor response to electrolyte replacements, including repeat lab results as appropriate 4. Fluid restriction or hydration as ordered 5. Instruct patient/ legal account manager sales representative on nutrition/diet; fluid/hydration restrictions as appropriate 05/17/2024645 by JAMEL Jacobson Outcome: Progressing Note: Evaluation of progress towards goal: electrolytes monitored 05/17/2024506 by JAMEL Jacobson Outcome: Progressing Note: Evaluation of progress towards goal: electrolytes monitored and replaced as needed Problem: Skin/Tissue Integrity - Adult Goal: Incisions, wounds, or drain sites healing without S/S of infection Description: INTERVENTIONS 1. ADMISSION & EVERY SHIFT: Assess and document risk factors for pressure ulcer development utilizing the Forrest/Forrest Q scale 2. Assess and document skin integrity 3. Assess and document dressing/incision, wound bed, drain sites and surrounding tissue 4. Implement wound care per orders 5. Initiate isolation precautions as appropriate 6. Initiate high risk precautions 05/17/2024645 by JAMEL Jacobson Outcome: Progressing Note: Evaluation of progress towards goal: wounds are healing 05/17/2024506 by JAMEL Jacobson Outcome: Progressing Note: Evaluation of progress towards goal: wounds are healing without S/S of infection Problem: Pain Goal: Patient goal is pain score less than 4, able to rest, and participant in treatment plan as appropriate Description: INTERVENTIONS: 1. Encourage patient or legal account manager sales representative to report early pain and ask for pain medicine when needed 2. Assess pain using appropriate pain scale and include the scale used when documenting 3. Administer analgesics based on type and severity of pain and evaluate response within appropriate time frame 4. Implement non-pharmacological measures as appropriate and evaluate response 5. Consider cultural and social influences on pain and pain management 6. Notify LIP if interventions ineffective or patient reports new pain 7. Monitor vital signs including pulse ox, end-tidal CO2 based on pain intervention 8. Reassess pain per policy 9. Teach patient or legal account manager sales representative interventions for comforting Outcome: Progressing Note: Evaluation of progress towards goal: denied pain Problem: Safety Goal: Patient will be injury free during hospitalization Description: INTERVENTIONS: 1. Assess patient's risk for falls and implement fall prevention plan of care per policy 2. Provide and maintain a safe environment 3. Proper use of double Identifiers 4. Medication administration using the 5 rights 5. Hand hygiene 6. Specimens are labeled at the bedside 7. Instruct patient/ patient account manager sales representative about use of safety devices 8. Include patient/ patient account manager sales representative in decisions related to safety Outcome: Progressing Note: Evaluation of progress towards goal: remains free of injury. Safety maintained. Problem: Infection Goal: Absence of infection during hospitalization Description: INTERVENTIONS 1. Assess and monitor for signs and symptoms of infection. 2. Monitor lab/diagnostic results. 3. Monitor all insertion sites i.e., indwelling lines, tubes and drains. 4. Monitor endotracheal (as able) and nasal secretions for changes in amount and color. 5. Administer medications as ordered. 6. Instruct and encourage patient and family to use good hand hygiene technique. 7. Identify and instruct patient/patient account manager sales representative in use of appropriate isolation precautions for identified infection/symptoms. 8. Provide and discuss with patient/patient account manager sales representative on educational MDRO sheet. 9. Encourage and monitor nutritional status daily and consult concrete buster operator if indicated. 10. Implement neutropenic guidelines as needed. Outcome: Progressing Note: Evaluation of progress towards goal: PT lab values and vitals monitored for signs of infection. Problem: Knowledge Deficit Goal: Patient/patient account manager sales representative demonstrates understanding of disease process, treatment plan, medications, and discharge instructions Description: INTERVENTIONS 1. Complete learning assessment and assess knowledge base 2. Provide teaching at level of understanding 3. Provide teaching via preferred learning method(s) Outcome: Progressing Note: Evaluation of progress towards goal: patient needs education reinforcement Problem: Discharge Planning Goal: Discharge to post-acute care, other facility, or home with appropriate resources Description: Patient's goal is: INTERVENTIONS 1. Conduct assessment to determine patient/family and health care team treatment goals, and need for post-acute services based on payer coverage, community resources, and patient preferences, and barriers to discharge 2. Coordinate with Social work, Care Navigation, and Utilization Review to arrange appropriate level of services according to patient's needs based on patient preference and payer coverage in collaboration with the physician and health care team 3. Address psychosocial, clinical, and financial barriers to discharge as identified in assessment in conjunction with the patient/family and health care team 4. Consult appropriate ancillary services (i.e.. PT/OT/ST, etc) as needed 5. Communicate with and update the patient/family, physician, and health care team regarding progress on the discharge plan 6. Identify discharge learning needs (meds, wound care, etc). 7. Arrange for needed discharge transportation as appropriate Outcome: Progressing Note: Evaluation of progress towards goal: patient will be discharge to SNF Problem: Glucose Imbalance Goal: Clinical indication of glucose balance is achieved Description: Patient's goal is: INTERVENTIONS 1. Monitor blood glucose levels as ordered 2. Administer medications as ordered 3. Notify physician of ineffective treatment plan Outcome: Progressing Note: Evaluation of progress towards goal: blood glucose monitored Goal: Patient's discharge needs are met Description: Patient's goal is: INTERVENTIONS 1. Assess patient for self-management skills 2. Encourage participation in diabetes management 3. Identify potential discharge barriers on admission and throughout hospital stay 4. Involve patient/S.O. in discharge planning process 5. Communicate referral to hematology nurse educator as appropriate 6. Communicate referral to concrete buster operator as appropriate 7. Collaborate with case management/drug abuse social worker for discharge needs Outcome: Progressing Note: Evaluation of progress towards goal: All patient's discharge needs are met Problem: Potential for Compromised Skin Integrity Goal: Skin integrity is maintained or improved Description: Patient's goal is: INTERVENTIONS 1. Perform initial skin assessment on admission and as needed 2. Turn patient every 2 hours and PRN 3. Relieve pressure to bony prominences 4. Avoid shearing 5. Keep skin clean and dry 6. Alternate a full bath with partial baths for elderly 7. Apply lotion/moisturizer on skin 8. Monitor patient's hygiene practices 9. Float heels 10. Collaborate with interdisciplinary team and initiate plans and interventions as needed Outcome: Progressing Note: Evaluation of progress towards goal: Skin integrity maintained. Q 2 hours turns maintained. Goal: Patient's nutritional intake is adequate Description: Patient's goal is: INTERVENTIONS 1. Assess and monitor food intake and supplements, patient food preferences, nausea, vomiting, labs, oral cavity (gums, teeth, tongue, mucosa), proper denture fit, and cultural beliefs 2. Monitor for signs of hypoglycemia and hyperglycemia 3. Collaborate with interdisciplinary team and initiate plan and interventions as ordered 4. Monitor patient's weight 5. Assist patient with meals/food selection 6. Assist patient with eating 7. Allow adequate time for meals 8. Provide pleasant environment during mealtime 9. Increase social contact during mealtimes 10. Plan activities to conserve energy 11. Encourage/perform oral hygiene as appropriate 12. Encourage patient to take dietary supplement as ordered 13. Collaborate with clinical concrete buster operator 14. Include patient/ patient's account manager sales representative in decisions related to nutrition Outcome: Progressing Note: Evaluation of progress towards goal: Patient encouraged to eat meals Problem: Urinary Incontinence Goal: Perineal skin integrity is maintained or improved Description: INTERVENTIONS 1. Assess genitourinary system, perineal skin, labs (urinalysis), and history of incontinence to include past management, aggravating, and alleviating factors 2. Keep skin clean and dry 3. Apply skin protectant 4. Develop skin care regimen 5. Provide privacy when changing patients incontinence device to maintain their dignity 6. Consider placing an indwelling catheter 7. Collaborate with interdisciplinary team and initiate plans and interventions as needed Outcome: Progressing Note: Evaluation of progress towards goal: perineal skin integrity maintained. Ointments applied Problem: Moderate - High Risk Fall Score Description: Joiner Fall Score of =/> 25 or indicated by [facility] Assessment Goal: Patient should be free from fall Description: Interventions: 1. [place] to environment 2. Hourly rounds addressing the 4 P's (Pain, Positioning, Possessions, Potty) 3. Clear area of hazards (spills, clutter, electrical cords, unnecessary equipment) 4. Place equipment (bed & TV controls, call light, phone, urinal) within reach 5. Encourage patient to wear glasses and hearing aides as appropriate 6. Maintain bed in lowest position 7. Lock wheels on bed/wheelchair 8. Provide adequate lighting, including night light 9. Assess need for additional bedding, food/fluids, pain med's prior to sleep/routinely 10. Provide gripper slippers or personal non-skid footwear 11. Teach patient and patient account manager sales representative to maintain environment for safety and engage in all aspects of fall prevention program 12. Remind patient to call for help before getting out of bed 13. Initiate bed/chair/exit alarms supportive devices as appropriate, (chair wedge, no-skid floor mat, raised edge mattress, hip protectors) 14. Locate patient bed assignment for optimal visualization 15. Evaluate and identify Safe Patient Handling Equipment needs 16. Provide supervision when out of bed or chair 17. Utilize gait belt as needed to assist with ambulation 18. Place adaptive equipment (cane, walker) within reach 19. Request patient account manager sales representative bring adaptive equipment/mobility aids from home or obtain and provide as needed 20. Consult pharmacy regarding effects of med's affecting mobility, cognition, and alternatives 21. Obtain physician order for PT if risk factors associated with mobility are present 22. Obtain physician order for OT as appropriate 23. Utilize diversional activities 24. Educate patient and patient account manager sales representative how to maintain a safe environment during visitation times (notify nurse prior to leaving bedside) 25. Consider appropriateness of medical or non-medical assistant dermatology 26. Set up voiding schedule as appropriate (every 2 hours) Outcome: Progressing Note: Evaluation of progress towards goal: Remains free of fall. Call light and personal belongings are within reach. Bed in low position and wheels are locked. Hourly rounding maintained. Problem: Respiratory - Adult Goal: Achieves optimal ventilation and oxygenation Description: Patient's goal is: INTERVENTIONS: 1. Assess for changes in respiratory status 2. Assess for changes in mentation and behavior 3. Position to facilitate oxygenation and minimize respiratory effort 4. Oxygen supplementation based on oxygen saturation or ABGs as ordered 5. Consult smoking cessation as indicated 6. Encourage broncho-pulmonary hygiene including cough, deep breathe, Incentive Spirometry, keep HOB elevated as tolerated, and encourage ambulation, as ordered 7. Assess the need for suctioning and obtain order to maintain clear airway 8. Assess and instruct patient to report SOB or any respiratory difficulty 9. Assess the need for Respiratory Therapy support if not already ordered 10. Initiate emergency measures for respiratory failure Outcome: Progressing Note: Evaluation of progress towards goal: optimal oxygenation achieves via NC Problem: Metabolic/Fluid and Electrolytes - Adult Goal: Electrolytes maintained within normal limits Description: INTERVENTIONS 1. Monitor for signs and symptoms of hypovolemia (tachycardia, rapid breathing, decreased urine output, postural hypotension, sunken fontanel) 2. Monitor for signs and symptoms of hypervolemia (strong rapid pulse, rapid breathing, crackles heard in lung pate, edema, decreased urine output, sudden weight gain, distended neck veins in older children, enlarged liver and spleen) 1. Monitor intake and output 2. Monitor pt's weight 1. Monitor labs and assess patient for signs and symptoms of electrolyte imbalances 2. Administer electrolyte replacement as ordered 3. Monitor response to electrolyte replacements, including repeat lab results as appropriate 4. Fluid restriction or hydration as ordered 5. Instruct patient/ legal account manager sales representative on nutrition/diet; fluid/hydration restrictions as appropriate Outcome: Progressing Note: Evaluation of progress towards goal: electrolytes monitored and replaced as needed Problem: Skin/Tissue Integrity - Adult Goal: Incisions, wounds, or drain sites healing without S/S of infection Description: INTERVENTIONS 1. ADMISSION & EVERY SHIFT: Assess and document risk factors for pressure ulcer development utilizing the Forrest/Forrest Q scale 2. Assess and document skin integrity 3. Assess and document dressing/incision, wound bed, drain sites and surrounding tissue 4. Implement wound care per orders 5. Initiate isolation precautions as appropriate 6. Initiate high risk precautions Outcome: Progressing Note: Evaluation of progress towards goal: wounds are healing without S/S of infection documented in this encounter [facility] [employer] 05-19-2024 Plan of care note 63 Year old with history of multiple sclerosis and end-stage renal disease, right lower extremity wounds, chronic urinary incontinence, [facility] resident who was admitted for generalized weakness, dry cough. Patient had missed hemodialysis due to symptoms. Found to have hyperkalemia at outside facility and transferred for further management. Currently hemodynamically stable, afebrile and saturating well on room air. Lactic acid 0.9. Procalcitonin 0.7. BNP 129. Troponin negative. Blood cultures remain negative. Flu/ COVID/RSV negative. On room air saturating well. ESRD On hemodialysis. Nephrology consulted for dialysis. Continued regular sessions. Acute on chronic normocytic anemia. Hemoglobin on admission 6.4, repeat above 7 without transfusions. Currently hemoglobin 7.8, repeat 7.3 this morning without transfusion. Baseline around 7. Ferritin 2188. TIBC 241. Consistent with anemia of chronic kidney disease. Vitamin B12 788. Folate above 25. No further transfusions required at this time. Note patient did endorse some epigastric pain this morning however she is not taking her PPI. No melena. Repeat hemoglobin 7.3. No GI bleeding noted. Placed back on oral PPI with improvement in symptoms. Currently back to normal. Will discharge on oral PPI twice daily. Outpatient follow-up with PCP. If continues to endorse epigastric tenderness, might benefit from outpatient EGD. Patient does have chronic sacral wound. Wound cultures positive for MRSA, group B strep and staph x2 variant. Per Infectious Disease, not infected at this time. No need for antibiotics. Recommending wound care. [facility] 05-19-2024 Hospital course Narrative Inpatient Discharge Summary BRIEF OVERVIEW Admitting Provider: Kimberley Soni MD Discharge Provider: Fidel Jordan MD Primary Care Physician at Discharge: TODD GEORGE MD [phone] Admission Date: 05/16/2024 Discharge Date: 05/19/24 Primary Discharge Diagnosis Hyperkalemia secondary to missed dialysis session Secondary Discharge Diagnosis ESRD on hemodialysis Multiple sclerosis Debility Anemia of chronic disease Chronic right lower extremity wounds Morbid Obesity Discharge Disposition Another Hospital Code Status at Discharge: Full Active Issues Requiring Follow-up Issue: hospitalization Responsible Individual: Todd George MD What is Needed: follow-up Follow-up Appointments Arranged: PCP at [facility] Issue: epigastric pain/discomfort Responsible Individual: Referred to [facility] What is Needed: work-up Follow-up Appointments Arranged: No Outpatient Follow-Up Future Appointments Date Time Provider Department Center 06/10/2024 3:45 PM Rajendra Wise MD [facility] 06/12/2024 1:20 PM Elidia Tierney, [employer] OPERATOR [facility] WOUND OP [facility] 07/20/2024 2:30 PM PM VASC 1 PMH VASC [facility] 07/27/2024 1:45 PM Angelique Mckinnon DO [facility] [address] Referrals and Follow-ups to Schedule [facility] [place], [place] Wound care (specify) Right lateral calf wound: Cleanse with soap and water or purple package skin care wipes. After cleansing apply silver alginate to open wound beds, cover with abd pad and secure with kerlix. Repeat daily and prn. Left calf wound: Cleanse with soap and water or purple package skin care wipes. After cleansing apply adaptic over open wound, cover with abd pad and secure with kerlix. Repeat daily and prn. Sacrum and right buttock wounds: Cleanse with soap and water or purple package skin care wipes. Utilize sea [employer] wound cleanser spray to help loosen barrier cream. After cleansing, thinly apply Z guard barrier cream to the wound (and periwound). Repeat twice daily and prn. The Z guard will help protect wound from incontinence/body fluids, DO NOT CAKE ON or vigorously scrub off. Location: wounds Your medication list CHANGE how you take these medications Instructions Last Dose Given Next Dose Due LOKELMA 10 gram packet Generic drug: sodium zirconium cyclosilicate Start taking on: May 22, 2024 What changed: when to take this additional instructions These instructions start on May 22, 2024. If you are unsure what to do until then, ask your doctor or other care provider. Take 10 g by mouth 3 (three) times a week. pantoprazole 40 mg EC tablet Commonly known as: PROTONIX What changed: when to take this Take 1 tablet (40 mg total) by mouth in the morning and 1 tablet (40 mg total) in the evening. Take before meals. TRAZODONE ORAL What changed: how much to take when to take this CONTINUE taking these medications Instructions Last Dose Given Next Dose Due acetaminophen 325 mg tablet Commonly known as: TYLENOL atorvastatin 80 mg tablet Commonly known as: LIPITOR azelastine 137 mcg (0.1 %) nasal spray Commonly known as: ASTELIN B complex-vitamin C-folic acid 1 mg capsule Commonly known as: NEPHROCAP BIOFREEZE (MENTHOL) 4 % gel Generic drug: menthol biotin 1 mg tablet calcium carbonate 500 mg elemental (1,250 mg) tablet Commonly known as: OS-NAIMA carboxymethylcellulose 1 % ophthalmic solution Commonly known as: REFRESH TEARS carvediloL 6.25 mg tablet Commonly known as: COREG cholecalciferol 1,000 units tablet Commonly known as: VITAMIN D3 Take 1 tablet (1,000 Units total) by mouth in the morning. ipratropium-albuteroL 0.5 mg-3 mg(2.5 mg base)/3 mL nebulizer Commonly known as: DUONEB lactulose 10 gram/15 mL solution Commonly known as: CHRONULAC LUTEIN ORAL midodrine 10 mg tablet Commonly known as: PROAMATINE midodrine 5 mg tablet Commonly known as: PROAMATINE modafiniL 100 mg tablet Commonly known as: PROVIGIL multivitamin with minerals tablet nystatin powder Commonly known as: MYCOSTATIN OXcarbazepine 300 mg tablet Commonly known as: TRILEPTAL OXYCODONE ORAL polyethylene glycol 17 gram packet Commonly known as: GLYCOLAX pregabalin 75 mg capsule Commonly known as: LYRICA sennosides-docusate sodium 8.6-50 mg Commonly known as: SENOKOT-S Take 1 tablet by mouth every 12 (twelve) hours as needed for constipation. sertraline 25 mg tablet Commonly known as: ZOLOFT sevelamer 800 mg tablet Commonly known as: RENVELA Take 1 tablet (800 mg total) by mouth in the morning and 1 tablet (800 mg total) at noon and 1 tablet (800 mg total) in the evening. Take with meals. simethicone 80 mg chewable tablet Commonly known as: MYLICON STOP taking these medications polyethylene glycol 236-22.74-6.74 -5.86 gram solution Commonly known as: GoLROSMERYLY ASK your doctor about these medications Instructions Last Dose Given Next Dose Due bisacodyL 5 mg EC tablet Commonly known as: DULCOLAX Take 1 tablet (5 mg total) by mouth daily as needed for constipation. NEPRO CARB STEADY 0.08 gram-1.8 kcal/mL liquid Generic drug: nut.tx.imp.renal fxn,lac-reduc EDWIN-LOLIS RX 1-60-300 mg-mg-mcg tablet Generic drug: vit B comp [id number] Where to Get Your Medications These medications were sent to [email or web address], [facility] [employer] [place], [place] - [address] [facility], [facility] [address] LOKELMA 10 gram packet pantoprazole 40 mg EC tablet sevelamer 800 mg tablet DETAILS OF HOSPITAL STAY Presenting Problem/History of Present Illness Wound infection [T14.8XXA, L08.9] Tachycardia [R00.0] Hyperkalemia [E87.5] Donna Mathews is a 63 y.o. female who has past medical history significant for right lower extremity wounds for past 3 years, multiple sclerosis, chronic urinary incontinence, end-stage renal disease on dialysis every day through left upper extremity fistula, and anemia of chronic disease. Patient lives at [facility] since 2012. She reports feeling unwell for 5 days preceding presentation, with a sore throat and dry cough. She had a dialysis session on Saturday, during which she experienced back pain due to which session was stopped. Reportedly, she refused dialysis session the next day. The day before presentation, she was noted to be lethargic and hypoxic, requiring supplemental oxygen. EMS was called, and she was transported to [place] [facility]. During transport, she received Duoneb treatment, which resulted in improvement of her oxygen saturation. She was transferred here for hemodialysis. She reports that she does not know why she was sent to the ED. She denies chest pain, shortness of breath, abdominal pain, nausea, vomiting, recent sick contacts, or recent travel. She states her right lower extremity wound is improving. Of note,due to worsening of right lower extremity wound, she was scheduled for surgical debridement in Mar 2024 however was canceled due to improvement in wound. She patient follows with wound care (last seen Mar 2024) who noted decrease in wound measurements. She also had a left lower extremity wound which has now resolved. Hospital Course [place] [facility]: White blood count 13, hemoglobin initially 6.4 repeat 7.3 (baseline 7-8), sodium 132, potassium 4.9 repeat 5.4, BUN 68 (baseline 20s). She did not receive any transfusions. Respiratory pathogen panel negative. Chest x-ray unremarkable. X-ray tibia fibula right reveals significant soft tissue swelling overlying the medial malleolus without obvious cortical erosion. Superficial wound cultures and blood cultures were obtained. Patient received IV vancomycin. On assessment, patient was alert and oriented x3. Blood pressure 130/114 (MAP 120), heart rate in 70s, saturating 97% on room air. Septic workup was obtained which was negative. Patient was monitored off antibiotics. Nephrology was consulted and dialysis was postponed until Saturday. Her Renvela was increased to TID and Lokelma was increased to three times weekly. She received dialysis on Saturday without complication and successful removal of 2.5L fluid. RLE wound culture came back positive for MRSA and group B strep. Infectious disease was consulted and recommended against antibiotics as the wound did not look grossly infected and there were no systemic signs of infection. Patient was discharged on 05/19 in good condition. Treatments: dialysis: Hemodialysis Consults: ID and nephrology Pertinent Test Results: labs: 05/19/24: Hb 6.8 g/dL, repeat 7.3 g/dL. WBC 7.6. BUN 43, Cr 5.54. K 4.7, Phos 4.2, Mag 2.1. and microbiology: wound culture: positive for MRSA and GBS 05/15/24 Urine culture 05/15/24 positive for E. Coli and Proteus Mirabilis. Physical Exam at Discharge Discharge Condition: good Pulse: 84 Resp: 20 BP: 107/62 Temp: 36.3 C (97.3 F) Weight: 131.9 kg (290 lb 12.6 oz) Constitutional: General: She is not in acute distress. Appearance: She is obese. She is not ill-appearing. HENT: Head: Normocephalic and atraumatic. Mouth/Throat: Mouth: Mucous membranes are moist. Eyes: Extraocular Movements: Extraocular movements intact. Pupils: Pupils are equal, round, and reactive to light. Cardiovascular: Rate and Rhythm: Normal rate and regular rhythm. Heart sounds: Normal heart sounds. L arm brachial AV fistula with palpable thrill Pulmonary: Effort: Pulmonary effort is normal. Breath sounds: Normal breath sounds. Skin: Comments: Healing pressure wound left lateral leg, wound on R lateral leg, wound above buttocks as seen in media tab Neurological: General: No focal deficit present. Mental Status: She is alert. Severe presbycusis - Todd Chen MD 05/19/24 4:44 PM Manager Dialysis, PGY-1 Cosigned by Fidel Jordan MD at 05/20/2024 6:35 AM EDT Associated attestation - Nikki, Fidel Givens MD - 05/20/2024 6:35 AM EDT I have seen and discussed the patient during rounds. I performed and participated in the critical/stanton portions of the service. I was directly involved in the management and treatment plan of the patient. I reviewed the resident's note and agree with the findings and plan. Additional Comments/Findings: HPI: none EXAM:none Assessment and Diagnosis: 63 Year old with history of multiple sclerosis and end-stage renal disease, right lower extremity wounds, chronic urinary incontinence, [facility] resident who was admitted for generalized weakness, dry cough. Patient had missed hemodialysis due to symptoms. Found to have hyperkalemia at outside facility and transferred for further management. Currently hemodynamically stable, afebrile and saturating well on room air. Lactic acid 0.9. Procalcitonin 0.7. BNP 129. Troponin negative. Blood cultures remain negative. Flu/ COVID/RSV negative. On room air saturating well. ESRD On hemodialysis. Nephrology consulted for dialysis. Continued regular sessions. Acute on chronic normocytic anemia. Hemoglobin on admission 6.4, repeat above 7 without transfusions. Currently hemoglobin 7.8, repeat 7.3 this morning without transfusion. Baseline around 7. Ferritin 2188. TIBC 241. Consistent with anemia of chronic kidney disease. Vitamin B12 788. Folate above 25. No further transfusions required at this time. Note patient did endorse some epigastric pain this morning however she is not taking her PPI. No melena. Repeat hemoglobin 7.3. No GI bleeding noted. Placed back on oral PPI with improvement in symptoms. Currently back to normal. Will discharge on oral PPI twice daily. Outpatient follow-up with PCP. If continues to endorse epigastric tenderness, might benefit from outpatient EGD. Patient does have chronic sacral wound. Wound cultures positive for MRSA, group B strep and staph x2 variant. Per Infectious Disease, not infected at this time. No need for antibiotics. Recommending wound care. documented in this encounter [facility] 05-19-2024 Hospital Discharge instructions Todd Chen MD - 05/19/2024 1:51 PM EDT Please start taking Renvela three times daily to get better control of your phosphorus. Start taking Lokelma three times weekly to control you potassium. Start taking Protonix twice daily for your heart burn. Continue taking all of your other medications as prescribed. Follow-ups: A referral was sent to [facility] physicians. Please follow up regarding your abdominal discomfort and to reevaluate your need for Protonix. Please continue to follow with your provider at [place]. documented in this encounter [facility] 05-19-2024 Progress note Formatting of t his note might be different from the original. DISCHARGE PLANNING NOTE BLS transport to [facility] 05/19/24 at 1700 hours via [facility]. Confirmed in [facility]. [facility] 05-19-2024 Plan of care note Problem: Pain Goal: Patient goal is pain score less than 4, able to rest, and participant in treatment plan as appropriate Description: INTERVENTIONS: 1. Encourage patient or legal account manager sales representative to report early pain and ask for pain medicine when needed 2. Assess pain using appropriate pain scale and include the scale used when documenting 3. Administer analgesics based on type and severity of pain and evaluate response within appropriate time frame 4. Implement non-pharmacological measures as appropriate and evaluate response 5. Consider cultural and social influences on pain and pain management 6. Notify LIP if interventions ineffective or patient reports new pain 7. Monitor vital signs including pulse ox, end-tidal CO2 based on pain intervention 8. Reassess pain per policy 9. Teach patient or legal account manager sales representative interventions for comforting Outcome: Progressing Note: Evaluation of progress towards goal: Patient pain assessed and reassessed per policy. Patient calls out appropriately for pain. Pain medications given as needed, per orders. Patient repositioned for comfort. Patient pain controlled at this time. Problem: Safety Goal: Patient will be injury free during hospitalization Description: INTERVENTIONS: 1. Assess patient's risk for falls and implement fall prevention plan of care per policy 2. Provide and maintain a safe environment 3. Proper use of double Identifiers 4. Medication administration using the 5 rights 5. Hand hygiene 6. Specimens are labeled at the bedside 7. Instruct patient/ patient account manager sales representative about use of safety devices 8. Include patient/ patient account manager sales representative in decisions related to safety Outcome: Progressing Note: Evaluation of progress towards goal: Patient assessed for fall risk. Fall prevention plan implemented. Proper use of double identifiers. Proper use of hand hygiene. Proper use of SPH equipment when needed. Patient remains free from injury at this time Problem: Infection Goal: Absence of infection during hospitalization Description: INTERVENTIONS 1. Assess and monitor for signs and symptoms of infection. 2. Monitor lab/diagnostic results. 3. Monitor all insertion sites i.e., indwelling lines, tubes and drains. 4. Monitor endotracheal (as able) and nasal secretions for changes in amount and color. 5. Administer medications as ordered. 6. Instruct and encourage patient and family to use good hand hygiene technique. 7. Identify and instruct patient/patient account manager sales representative in use of appropriate isolation precautions for identified infection/symptoms. 8. Provide and discuss with patient/patient account manager sales representative on educational MDRO sheet. 9. Encourage and monitor nutritional status daily and consult concrete buster operator if indicated. 10. Implement neutropenic guidelines as needed. Outcome: Progressing Note: Evaluation of progress towards goal: Patient assessed and monitored for signs and symptoms of infection. Vital signs monitored. Labs monitored. Patient and family encouraged proper use of hand hygeine. Proper hand hygiene used per policy. Insertion sites monitored for any signs of infection. Patient remains free from infection at this time. Problem: Knowledge Deficit Goal: Patient/patient account manager sales representative demonstrates understanding of disease process, treatment plan, medications, and discharge instructions Description: INTERVENTIONS 1. Complete learning assessment and assess knowledge base 2. Provide teaching at level of understanding 3. Provide teaching via preferred learning method(s) Outcome: Progressing Note: Evaluation of progress towards goal: Patient learning needs assessed. Patient verbalizes understanding of the education that has been provided at this time. Problem: Discharge Planning Goal: Discharge to post-acute care, other facility, or home with appropriate resources Description: Patient's goal is: Discharge back to SNF INTERVENTIONS 1. Conduct assessment to determine patient/family and health care team treatment goals, and need for post-acute services based on payer coverage, community resources, and patient preferences, and barriers to discharge 2. Coordinate with Social work, Care Navigation, and Utilization Review to arrange appropriate level of services according to patient's needs based on patient preference and payer coverage in collaboration with the physician and health care team 3. Address psychosocial, clinical, and financial barriers to discharge as identified in assessment in conjunction with the patient/family and health care team 4. Consult appropriate ancillary services (i.e.. PT/OT/ST, etc) as needed 5. Communicate with and update the patient/family, physician, and health care team regarding progress on the discharge plan 6. Identify discharge learning needs (meds, wound care, etc). 7. Arrange for needed discharge transportation as appropriate Outcome: Progressing Note: Evaluation of progress towards goal: Patient discharge plan ongoing. Problem: Potential for Compromised Skin Integrity Goal: Skin integrity is maintained or improved Description: Patient's goal is: to have no new wounds INTERVENTIONS 1. Perform initial skin assessment on admission and as needed 2. Turn patient every 2 hours and PRN 3. Relieve pressure to bony prominences 4. Avoid shearing 5. Keep skin clean and dry 6. Alternate a full bath with partial baths for elderly 7. Apply lotion/moisturizer on skin 8. Monitor patient's hygiene practices 9. Float heels 10. Collaborate with interdisciplinary team and initiate plans and interventions as needed Outcome: Progressing Note: Evaluation of progress towards goal: Patient skin integrity maintained at this time. Wound care completed as ordered Goal: Patient's nutritional intake is adequate Description: Patient's goal is: to eat 50% of all meals INTERVENTIONS 1. Assess and monitor food intake and supplements, patient food preferences, nausea, vomiting, labs, oral cavity (gums, teeth, tongue, mucosa), proper denture fit, and cultural beliefs 2. Monitor for signs of hypoglycemia and hyperglycemia 3. Collaborate with interdisciplinary team and initiate plan and interventions as ordered 4. Monitor patient's weight 5. Assist patient with meals/food selection 6. Assist patient with eating 7. Allow adequate time for meals 8. Provide pleasant environment during mealtime 9. Increase social contact during mealtimes 10. Plan activities to conserve energy 11. Encourage/perform oral hygiene as appropriate 12. Encourage patient to take dietary supplement as ordered 13. Collaborate with clinical concrete buster operator 14. Include patient/ patient's account manager sales representative in decisions related to nutrition Outcome: Progressing Note: Evaluation of progress towards goal: Nutritional intake is adequate at this time. Problem: Urinary Incontinence Goal: Perineal skin integrity is maintained or improved Description: INTERVENTIONS 1. Assess genitourinary system, perineal skin, labs (urinalysis), and history of incontinence to include past management, aggravating, and alleviating factors 2. Keep skin clean and dry 3. Apply skin protectant 4. Develop skin care regimen 5. Provide privacy when changing patients incontinence device to maintain their dignity 6. Consider placing an indwelling catheter 7. Collaborate with interdisciplinary team and initiate plans and interventions as needed Outcome: Progressing Note: Evaluation of progress towards goal: Perineal skin integrity maintained at this time. Problem: Moderate - High Risk Fall Score Description: Joiner Fall Score of =/> [address] [facility] Assessment Goal: Patient should be free from fall Description: Interventions: 1. [place] to environment 2. Hourly rounds addressing the 4 P's (Pain, Positioning, Possessions, Potty) 3. Clear area of hazards (spills, clutter, electrical cords, unnecessary equipment) 4. Place equipment (bed & TV controls, call light, phone, urinal) within reach 5. Encourage patient to wear glasses and hearing aides as appropriate 6. Maintain bed in lowest position 7. Lock wheels on bed/wheelchair 8. Provide adequate lighting, including night light 9. Assess need for additional bedding, food/fluids, pain med's prior to sleep/routinely 10. Provide gripper slippers or personal non-skid footwear 11. Teach patient and patient account manager sales representative to maintain environment for safety and engage in all aspects of fall prevention program 12. Remind patient to call for help before getting out of bed 13. Initiate bed/chair/exit alarms supportive devices as appropriate, (chair wedge, no-skid floor mat, raised edge mattress, hip protectors) 14. Locate patient bed assignment for optimal visualization 15. Evaluate and identify Safe Patient Handling Equipment needs 16. Provide supervision when out of bed or chair 17. Utilize gait belt as needed to assist with ambulation 18. Place adaptive equipment (cane, walker) within reach 19. Request patient account manager sales representative bring adaptive equipment/mobility aids from home or obtain and provide as needed 20. Consult pharmacy regarding effects of med's affecting mobility, cognition, and alternatives 21. Obtain physician order for PT if risk factors associated with mobility are present 22. Obtain physician order for OT as appropriate 23. Utilize diversional activities 24. Educate patient and patient account manager sales representative how to maintain a safe environment during visitation times (notify nurse prior to leaving bedside) 25. Consider appropriateness of medical or non-medical assistant dermatology 26. Set up voiding schedule as appropriate (every 2 hours) Outcome: Progressing Note: Evaluation of progress towards goal: Patient calls out appropriately. Call light within reach. Bed in low and locked position. Non-slip footwear in place. Proper use of SPH equipment if needed to transfer patient. Patient remains free from falls at this time. Problem: Multi-Drug Resistant Organism / Rule-Out Infection Prevention Goal: Prevent transmission of infection Description: INTERVENTIONS 1. Place patient in private room or in room with patient with same disease 2. Discard single-use items 3. Clean reusable equipment between patients 4. Wear gloves for direct and indirect contact with patient or contaminants 5. Change gloves between tasks and procedures 6. Wash hands before and after caring for each patient 7. Wear appropriate personal protective equipment in relation to the indicated isolation type 8. Place appropriate isolation signage on patient's door 9. Provide patient/ patient account manager sales representative with isolation education. Outcome: Completed Note: Evaluation of progress towards goal: [employer] 05-19-2024 Progress note Formatting of t his note might be different from the original. DISCHARGE PLANNING NOTE Discharge Plan: Return to [facility]. Patient receives HD at facility. No authorization needed to return. BLS transport needed. Barriers include: monitor hemoglobin. - Ciera Cartagena 05/19/24 10:36 AM DC order in, BLS transport set for 4pm. Dc packet completed. CRF sent to facility. - Ciera Cartagena 05/19/24 2:20 PM Cosigned by BENJAMIN Aguirre at 05/19/2024 2:21 PM EDT Associated attestation - Belinda Dupont LSW - 05/19/2024 2:21 PM EDT - BELINDA DUPONT, LEASE ADMINISTRATION SUPERVISOR 05/19/24 2:21 PM [employer] 05-19-2024 History of Present illness Narrative Images from the original note were not included. NEPHROLOGY PROGRESS NOTE Assessment End-stage renal disease on hemodialysis at [facility] Metabolic encephalopathy Chronic hypotension on ProAmatine Hyperkalemia improving with dialysis also on Lokelga Diabetes mellitus type 2 management per primary Right lower extremity pressure ulcer with ulcer also in the right buttocks and coccyx region, management per primary, cultures showing MRSA and GBS colonization currently being monitor off antibiotics infectious Disease signed off Hyperphosphatemia, on low phos diet and Renvela Anemia of chronic disease, iron replete, on Aranesp Plan Hemodialysis tomorrow Continue MWF regimen Low-potassium diet Continue scheduled [facility] with parameters 3 times a week Renal panel daily Strict I&Os Continue Renvela Interval history Patient seen examinedAt bedside. Hemodynamically stable. Appetite stable. Tolerated dialysis yesterday with 2.5 L removed. Problem List End-stage renal disease on hemodialysis on a daily basis at nursing facility by way of left upper arm AV fistula dialyzing at [facility]. Bilateral lower extremity chronic wounds managed by wound care Right buttock and coccyx pressure ulcers Hyperkalemia Anemia of chronic disease History of DVT Diabetes mellitus type 2 Hypertension Hyperlipidemia GERD Multiple sclerosis Lymphedema Morbid obesity History of stroke Thrombocytopenia Chronic indwelling catheter Physical Exam Admission Weight: Weight: 132.1 kg (291 lb 3.6 oz) I/O last 3 completed shifts: In: 1110 [P.O.:240; I.V.:620; Other:250] Out: 2500 [Other:2500] Weight change: -0.2 kg (-7.1 oz) Wt Readings from Last 3 Encounters: 05/19/24 131.9 kg (290 lb 12.6 oz) 05/15/24 134.9 kg (297 lb 8 oz) 04/17/24 126.4 kg (278 lb 9.6 oz) Vitals: Vitals: 05/18/24 2300 05/19/24 0310 05/19/24 0600 05/19/24 0700 BP: 107/69 97/54 116/71 Pulse: 90 63 83 Resp: 16 16 20 Temp: 36.4 C (97.5 F) 36.5 C (97.7 F) 36.4 C (97.5 F) TempSrc: Oral Oral Oral SpO2: 96% 97% 95% Weight: 131.9 kg (290 lb 12.6 oz) Height: General: Alert, oriented x 3 and in no obvious distress Psychiatric: Has a normal mood and affect. HEENT: Head normocephalic. Eyes: Conjunctivae and EOM are normal. Pupils are equal, round and reactive to light. Cardiovascular: Normal rate, regular rhythm and normal heart sounds. No JVD. Pulmonary/Chest: Air entry bilaterally equal. No wheezes or rales. Abdominal: Soft, bowel sounds are normal and there was no tenderness rebound or guarding. Musculoskeletal: Normal range of motion. No tenderness. Neurological: No obvious deficits. Skin: No rash noted. Extremities: Trace lower extremity edema Meds: Current Meds: atorvastatin, 80 mg, oral, HS darbepoetin xavier (ARANESP) injection, 100 mcg, subcutaneous, Weekly guaiFENesin, 600 mg, oral, Q12H ANNALISE heparin (porcine), 5,000 Units, subcutaneous, Q8H ANNALISE midodrine, 10 mg, oral, TID sevelamer, 800 mg, oral, TID with meals sodium chloride, 3 mL, intravenous, Q12H ANNALISE [START ON 05/21/2024] sodium zirconium cyclosilicate, 10 g, oral, Once per day on Saturday Continuous Infusions: dextrose 5 % in water, 100 mL/hr Laboratory Studies Results from last 7 days Lab Units 05/19/24 0332 05/18/24 0503 05/17/24 2317 05/17/24 0405 SODIUM mmol/L 137 134 -- 134 POTASSIUM mmol/L 4.7 5.2* -- 5.1* CHLORIDE mmol/L 101 96* -- 95* CO2 mmol/L 23 23 -- 25 BUN mg/dL 43* 76* -- 70* CREATININE mg/dL 5.54* 7.57* -- 6.97* CALCIUM mg/dL 8.2* 8.6 -- 8.2* PHOSPHORUS mg/dL 4.2 5.6* -- 4.6 MAGNESIUM mg/dL 2.1 2.5 2.4 1.8 Results from last 7 days Lab Units 05/19/24 0852 05/19/24 0332 05/18/24 0503 05/17/24 0405 WBC X10E9/L -- 7.6 7.3 11.9* HEMOGLOBIN g/dL 7.3* 6.8* 7.9* 7.6* HEMATOCRIT % 21.7* 20.0* 22.8* 22.5* PLATELETS X10E9/L -- 172 161 ESTIMATE OF PLATELETS, NORMAL Results from last 7 days Lab Units 05/19/24 0332 05/18/24 0503 05/17/24 2317 MAGNESIUM mg/dL 2.1 2.5 2.4 Lab Results Component Value Date PTH 116 (H) 09/18/2022 CALCIUM 8.2 (L) 05/19/2024 Lab Results Component Value Date IRON 84 05/17/2024 TIBC 241 (L) 05/17/2024 FERRITIN 2,188 (H) 05/17/2024 Please contact me at [phone] (Office) or [phone] (Answering service) with any questions. Angel Kebede DO [facility] This note was created with the assistance of a speech-recognition program. Although the intention is to generate a document that actually reflects the content of the visit, no guarantees can be provided that every mistake has been identified and corrected by editing. Images from the original note were not included. NEPHROLOGY PROGRESS NOTE Assessment End-stage renal disease on hemodialysis at [place] Metabolic encephalopathy Chronic hypotension on ProAmatine Hyperkalemia improving with dialysis also on Lokelma Diabetes mellitus type 2 management per primary Right lower extremity pressure ulcer with ulcer also in the right buttocks and coccyx region, management per primary Hyperphosphatemia, on low phos diet and Renvela Anemia of chronic disease, iron replete, on Aranesp Plan Hemodialysis today Continue MWF regimen Low-potassium diet Continue scheduled [place] with parameters 3 times a week Renal panel daily Strict I&Os Continue Renvela Interval history Patient seen examined during dialysis. Hemodynamically stable. On room air. Problem List End-stage renal disease on hemodialysis on a daily basis at nursing facility by way of left upper arm AV fistula Bilateral lower extremity chronic wounds managed by wound care Right buttock and coccyx pressure ulcers Hyperkalemia Anemia of chronic disease History of DVT Diabetes mellitus type 2 Hypertension Hyperlipidemia GERD Multiple sclerosis Lymphedema Morbid obesity History of stroke Thrombocytopenia Chronic indwelling catheter Physical Exam Admission Weight: Weight: 132.1 kg (291 lb 3.6 oz) No intake/output data recorded. Weight change: Wt Readings from Last 3 Encounters: 05/18/24 131.9 kg (290 lb 12.6 oz) 05/15/24 134.9 kg (297 lb 8 oz) 04/17/24 126.4 kg (278 lb 9.6 oz) Vitals: Vitals: 05/18/24 0915 05/18/24 0930 05/18/24 1000 05/18/24 1030 BP: 95/56 110/67 99/58 110/61 Pulse: 85 85 84 90 Resp: Temp: TempSrc: SpO2: 98% 97% 98% 99% Weight: Height: General: Alert, oriented x 3 and in no obvious distress Psychiatric: Has a normal mood and affect. HEENT: Head normocephalic. Eyes: Conjunctivae and EOM are normal. Pupils are equal, round and reactive to light. Cardiovascular: Normal rate, regular rhythm and normal heart sounds. No JVD. Pulmonary/Chest: Air entry bilaterally equal. No wheezes or rales. Abdominal: Soft, bowel sounds are normal and there was no tenderness rebound or guarding. Musculoskeletal: Normal range of motion. No tenderness. Neurological: No obvious deficits. Skin: No rash noted. Extremities: Trace lower extremity edema Meds: Current Meds: atorvastatin, 80 mg, oral, HS darbepoetin xavier (ARANESP) injection, 100 mcg, subcutaneous, Weekly guaiFENesin, 600 mg, oral, Q12H ANNALISE heparin (porcine), 5,000 Units, subcutaneous, Q8H ANNALISE ipratropium-albuteroL, 3 mL, nebulization, Q6H midodrine, 10 mg, oral, TID sevelamer, 800 mg, oral, TID with meals sodium chloride, 3 mL, intravenous, Q12H ANNALISE sodium zirconium cyclosilicate, 10 g, oral, Daily Continuous Infusions: dextrose 5 % in water, 100 mL/hr Laboratory Studies Results from last 7 days Lab Units 05/18/24 0503 05/17/24 2317 05/17/24 0405 05/16/24 1530 SODIUM mmol/L 134 -- 134 132* POTASSIUM mmol/L 5.2* -- 5.1* 5.4* CHLORIDE mmol/L 96* -- 95* 94* CO2 mmol/L 23 -- 25 24 BUN mg/dL 76* -- 70* 67* CREATININE mg/dL 7.57* -- 6.97* 6.33* CALCIUM mg/dL 8.6 -- 8.2* 7.8* PHOSPHORUS mg/dL 5.6* -- 4.6 -- MAGNESIUM mg/dL 2.5 2.4 1.8 -- Results from last 7 days Lab Units 05/18/24 0503 05/17/24 0405 05/16/24 1640 WBC X10E9/L 7.3 11.9* 13.0* HEMOGLOBIN g/dL 7.9* 7.6* 7.3* HEMATOCRIT % 22.8* 22.5* 21.9* PLATELETS X10E9/L 161 ESTIMATE OF PLATELETS, NORMAL 154 Results from last 7 days Lab Units 05/18/24 0503 05/17/24 2317 05/17/24 0405 MAGNESIUM mg/dL 2.5 2.4 1.8 Lab Results Component Value Date PTH 116 (H) 09/18/2022 CALCIUM 8.6 05/18/2024 Lab Results Component Value Date IRON 84 05/17/2024 TIBC 241 (L) 05/17/2024 FERRITIN 2,188 (H) 05/17/2024 Please contact me at [phone] (Office) or [phone] (Answering service) with any questions. Angel Kebede DO [facility] This note was created with the assistance of a speech-recognition program. Although the intention is to generate a document that actually reflects the content of the visit, no guarantees can be provided that every mistake has been identified and corrected by editing. Images from the original note were not included. DAILY PROGRESS NOTE IMS-3 This is a progress note for Donna Mathews, a 63 y.o. who has been admitted for 2 midnights DATE OF ADMISSION 05/16/2024 9:45 PM TODAY'S DATE: 05/18/24 CHIEF COMPLAINT: lethargy, missed dialysis ADMITTED FOR: missed dialysis, uremia SUBJECTIVE: PROBLEM STATEMENT/HOSPITAL COURSE: Donna Mathews is a 63 y.o. female who has past medical history significant for right lower extremity wounds for past 3 years, multiple sclerosis, chronic urinary incontinence, end-stage renal disease on dialysis every day through left upper extremity fistula, and anemia of chronic disease. Patient lives at [facility] since 2012. She mentions feeling unwell for the past 5 days (since Saturday), with a sore throat and dry cough. She had a dialysis session on Saturday, during which she experienced back pain due to which session was stopped. Reportedly, she refused dialysis session the next day. The day prior to presentation, she was noted to be lethargic and hypoxic, requiring supplemental oxygen. EMS was called, and she was transported to [place] [facility]. During transport, she received Duoneb treatment, which resulted in improvement of her oxygen saturation. She was transferred here for hemodialysis. She reports that she does not know why she was sent to the ED. She denies chest pain, shortness of breath, abdominal pain, nausea, vomiting, recent sick contacts, or recent travel. She states her right lower extremity wound is improving. Of note,due to worsening of right lower extremity wound, she was scheduled for surgical debridement in Mar 2024 however was canceled due to improvement in wound. She patient follows with wound care (last seen Mar 2024) who noted decrease in wound measurements. She also had a left lower extremity wound which has now resolved. [place] [facility]: White blood count 13, hemoglobin initially 6.4 repeat 7.3 (baseline 7-8), sodium 132, potassium 4.9 repeat 5.4, BUN 68 (baseline 20s). She did not receive any transfusions. Respiratory pathogen panel negative. Chest x-ray unremarkable. X-ray tibia fibula right reveals significant soft tissue swelling overlying the medial malleolus without obvious cortical erosion Superficial wound cultures and blood cultures were obtained. Patient received IV vancomycin. On assessment, patient was alert and oriented x3. Blood pressure 130/114 (MAP 120), heart rate in 70s, saturating 97% on room air. Code status was discussed and patient elected to be full code at this time. INTERVAL: Patient getting dialyzed this morning. Leukocytosis resolved, vital signs within normal limits. Wound culture came back with MRSA and GBS. Infectious disease consulted to guide antimicrobial management in the absence of signs of systemic infection. Objective OBJECTIVE: Vital Signs Temp: [36.4 C (97.6 F)-36.8 C (98.2 F)] 36.8 C (98.2 F) Pulse: [68-91] 80 Resp: [16-20] 16 BP: (90-120)/(51-68) 120/68 SpO2: [90 %-100 %] 90 % O2 Device: None (Room air) O2 Flow Rate (L/min): [0 L/min] 0 L/min Weight: Admission weight: 132.1 kg (291 lb 3.6 oz) Wt Readings from Last 3 Encounters: 05/18/24 131.9 kg (290 lb 12.6 oz) 05/15/24 134.9 kg (297 lb 8 oz) 04/17/24 126.4 kg (278 lb 9.6 oz) Input/Output: Intake/Output Summary (Last 24 hours) at 05/18/2024 0818 Last data filed at 05/18/2024 0804 Gross per 24 hour Intake 250 ml Output -- Net 250 ml Physical Exam BP 120/68 Pulse 80 Temp 36.8 C (98.2 F) (Oral) Resp 16 Ht 167.6 cm (5' 6 ) Wt 131.9 kg (290 lb 12.6 oz) SpO2 90% BMI 46.93 kg/m Vitals: 05/18/24 0804 BP: 120/68 Pulse: 80 Resp: Temp: SpO2: 90% Physical Exam Constitutional: General: She is not in acute distress. Appearance: She is obese. She is not ill-appearing. HENT: Head: Normocephalic and atraumatic. Ears: Comments: Hard of hearing Mouth/Throat: Mouth: Mucous membranes are moist. Eyes: Extraocular Movements: Extraocular movements intact. Pupils: Pupils are equal, round, and reactive to light. Cardiovascular: Rate and Rhythm: Normal rate and regular rhythm. Heart sounds: Normal heart sounds. Pulmonary: Effort: Pulmonary effort is normal. Breath sounds: Normal breath sounds. Skin: Comments: Healing pressure wound left lateral leg, wound on R lateral leg, wound above buttocks as seen in media tab Neurological: General: No focal deficit present. Mental Status: She is alert. Labs Results from last 7 days Lab Units 05/18/24 0503 05/17/24 0405 05/16/24 1640 WBC X10E9/L 7.3 11.9* 13.0* HEMOGLOBIN g/dL 7.9* 7.6* 7.3* HEMATOCRIT % 22.8* 22.5* 21.9* PLATELETS X10E9/L 161 ESTIMATE OF PLATELETS, NORMAL 154 Results from last 7 days Lab Units 05/18/24 0503 05/17/24 2317 05/17/24 0405 05/16/24 1530 SODIUM mmol/L 134 -- 134 132* POTASSIUM mmol/L 5.2* -- 5.1* 5.4* CHLORIDE mmol/L 96* -- 95* 94* CO2 mmol/L 23 -- 25 24 BUN mg/dL 76* -- 70* 67* CREATININE mg/dL 7.57* -- 6.97* 6.33* CALCIUM mg/dL 8.6 -- 8.2* 7.8* PHOSPHORUS mg/dL 5.6* -- 4.6 -- MAGNESIUM mg/dL 2.5 2.4 1.8 -- Results from last 7 days Lab Units 05/16/24 1530 05/16/24 0500 05/15/24 1552 ALBUMIN g/dL 2.6* 2.2* 2.8* TOTAL PROTEIN g/dL 5.9* 5.2* 6.3 ALT U/L 22 21 24 AST U/L 25 21 26 ALK PHOS U/L 66 56 65 Results from last 7 days Lab Units 05/18/24 0503 05/17/24 0823 05/17/24 0405 BEDSIDE GLUCOSE mg/dL -- 83 -- GLUCOSE mg/dL 89 -- 76 Lab Results Component Value Date HGBA1C 5.5 09/14/2022 Results from last 7 days Lab Units 05/17/24 1108 BNP pg/mL 129* Invalid input(s): ABGOXYGENSOUE Results from last 7 days Lab Units 05/17/24 0948 05/15/242008 LACTIC ACID mmol/L -- 1.4 PROCALCITONIN ng/mL 0.70* -- Results from last 7 days Lab Units 05/17/24 0948 05/17/24 0405 VITAMIN B 12 pg/mL -- 788 FOLATE ng/mL >25.0 -- FERRITIN ng/mL 2,188* -- IRON ug/dL -- 84 TIBC-CALC ONLY DO NOT ORDER ug/dL -- 241* IRON SATURATION % SATURATION -- 35 Lab Results Component Value Date WBCU 60 (H) 07/12/2023 SPECIFICGRA 1.015 07/12/2023 LEUKOCYTE MODERATE (A) 07/12/2023 UROBILINOGEN 0.2 07/12/2023 Imaging X-ray tibia fibula right minimum 2 views Result Date: 05/15/2024 EXAM: XR TIBIA FIBULA RT MIN 2 VWS CLINICAL INDICATIONS: infection. Confusion, lethargy. No sore on right lower extremity. FINDINGS: Changes of total knee arthroplasty, partially visualized, without obvious hardware complication. Hardware is also partially assessed in the first digit metatarsals. Bone demineralization without evidence of acute fracture or malalignment. Significant soft tissue swelling overlying the medial malleolus without obvious underlying cortical erosion. IMPRESSION: Significant soft tissue swelling overlying the medial malleolus without obvious underlying cortical erosion. Please note that radiographs are insensitive for the evaluation of osteomyelitis. If clinically indicated, consider further evaluation with MRI. Finalized by Jesse Mejia on 05/15/2024 5:52 PM X-ray chest 1 view Result Date: 05/15/2024 Clinical history: Shortness of breath. Lethargy. Comparisons: None Findings: AP upright chest radiograph obtained at 4:53 PM. Heart size and pulmonary vasculature appear within normal limits. There is hypoventilation with low lung volumes. No pulmonary parenchymal consolidation. No pleural effusion. No pneumothorax. IMPRESSION: 1. Hypoventilation with low lung volumes, otherwise no acute finding in the chest. Finalized by Jignesh Aguillon MD on 05/15/2024 5:[address] brain without contrast Result Date: 05/15/2024 HISTORY: A 63-year-old female with the history of the altered mental status. EXAM/TECHNIQUE: Multidetector spiral CT scan of brain is performed. Multiplanar reconstruction images are reformatted. All CT scans at this facility use dose modulation, iterative reconstruction, and/or weight based dosing when appropriate to reduce radiation dose to as low as reasonably achievable. COMPARISON: None available. FINDINGS: There is generalize cortical atrophy. Ventricular system is normal in size and configuration for the patient's age and generalized atrophy. There are vague hypodense regions in the deep white matter supratentorially consistent with small vessels ischemic change. There is no evidence of intracranial hemorrhage or acute pathology. The cerebellum and brainstem are unremarkable. No mass effect, midline shift of the structures or extra-axial fluid collections are noted. The calvarium is intact. Mucosal thickening is seen in the paranasal sinuses consistent with chronic sinusitis. Mastoid air cells are clear. IMPRESSION: * No evidence of intracranial hemorrhage or acute pathology. * Small vessels ischemic change in the deep white matter supratentorially and generalized atrophy. * Chronic paranasal sinusitis. Finalized by Jose C Stock MD on 05/15/2024 5:08 PM Cultures Microbiology Results Procedure Component Value Units Date/Time Blood culture [[id number]] Collected: 05/15/24 1613 Specimen: Blood Updated: 05/17/242317 Specimen Notes right wrist Culture NO GROWTH 2 DAYS Wound culture superficial includes gram stain [[id number]] (Abnormal) (Susceptibility) Collected: 05/15/24 1606 Specimen: Wound Swab Updated: 05/18/24 0738 Gram Stain Result 0 to 1 WHITE BLOOD CELLS/LPF 10 to 24 SQUAMOUS EPITHELIAL CELLS/LPF MODERATE GRAM POSITIVE COCCI IN PAIRS AND CHAINS FEW GRAM POSITIVE COCCI IN CLUSTERS Culture MANY STAPHYLOCOCCUS AUREUS METHICILLIN RESISTANT MANY STREPTOCOCCUS AGALACTIAE (GROUP B) CULTURE IN PROGRESS ALONG WITH RARE MIXED GRAM NEGATIVE ORGANISMS : NO PSEUDOMONAS AERUGINOSA ISOLATED Susceptibility Staphylococcus Aureus EVAN METHOD (Preliminary) Cefazolin RESISTANT(DEDUCED) Clindamycin 0.25 Susceptible Daptomycin 0.25 Susceptible Doxycycline 2 Susceptible [1] Oxacillin >=4 Resistant TRIMETH/SULFAMETHOXAZOLE <=0.5/9.5 Susceptible Vancomycin <=0.5 Susceptible [1] CLIA ID [id number] Blood culture [[id number]] Collected: 05/15/24 1600 Specimen: Blood Updated: 05/17/24 2318 Specimen Notes right hand Culture NO GROWTH 2 DAYS Urine culture [[id number]] Collected: 05/15/24 1544 Specimen: Urine from [facility] Updated: 05/17/24 0923 Specimen Notes URINE RECEIVED WITHOUT PRESERVATIVE Culture CULTURE IN PROGRESS SARS/FLU A+B/RSV by NAAT/Molecular (M4RT Collection Tube) [[id number]] Collected: 05/15/24 1520 Specimen: Nasopharynx Updated: 05/15/24 1634 FLU A PCR Negative FLU B PCR Negative RSV by PCR Negative SARS CoV 2 BY PCR Not Detected HOSPITAL MEDICATIONS: Scheduled: atorvastatin, 80 mg, oral, HS darbepoetin xavier (ARANESP) injection, 100 mcg, subcutaneous, Weekly guaiFENesin, 600 mg, oral, Q12H ANNALISE heparin (porcine), 5,000 Units, subcutaneous, Q8H ANNALISE ipratropium-albuteroL, 3 mL, nebulization, Q6H midodrine, 10 mg, oral, TID sevelamer, 800 mg, oral, TID with meals sodium chloride, 3 mL, intravenous, Q12H ANNALISE sodium zirconium cyclosilicate, 10 g, oral, Daily Infusions: dextrose 5 % in water, 100 mL/hr sodium chloride 0.9 %, 250 mL, Last Rate: 250 mL (05/18/24 0804) As Needed: benzocaine-menthoL calcium gluconate calcium gluconate calcium gluconate calcium gluconate calcium gluconate calcium gluconate dextrose dextrose 5 % in water dextrose 50 % in water (D50W) glucagon (human recombinant) magnesium sulfate magnesium sulfate potassium chloride OR potassium chloride OR potassium chloride IV (Adult) potassium chloride OR potassium chloride OR potassium chloride IV (Adult) sodium phosphate IV OR sodium phosphate IV - central line OR sod phos di, mono-K phos mono sodium chloride sodium chloride sodium chloride ASSESSMENT/PLAN: Hyperkalemia - improved End stage renal disease on hemodialysis everyday - Patient had one incomplete session and missed one session of hemodialysis - Resume home [place] - Consult nephrology, appreciate recommendations -dialysis today -plan for MWF dialysis for now Right lower extremity pressure ulcer Pressure ulcer in right buttock and coccyx - Consult wound care - Compared pictures of the wound from previous from 3 days ago. Does not seem to be any worse -wound culture with MRSA and GBS -no signs of systemic infection: WBCs 7.3, normotensive, no tachycardia, procal 0.7 in the setting of ESRD Upper respiratory tract illness, likely viral -RPP negative at OSH -CXR negative - Supportive care Chronic Issues: multiple sclerosis Chronic urinary incontinence End-stage renal disease on dialysis every day through left upper extremity fistula Anemia of chronic disease DVT prophylaxis: SQH Diet: Renal Fluids: none Anticipated Disposition: back to facility Code Status: FULL - Todd Chen MD 05/18/24 8:18 AM Manager Dialysis, PGY-1 Cosigned by Kimberley Soni MD at 05/19/2024 6:59 AM EDT Associated attestation - Kimberley Soni MD - 05/19/2024 6:59 AM EDT I have seen and discussed the patient during rounds. I performed and participated in the critical/stanton portions of the service. I was directly involved in the management and treatment plan of the patient. I reviewed the resident's note and agree with the findings and plan. KIMBERLEY SONI MD 05/19/2024 6:59 AM Images from the original note were not included. DAILY PROGRESS NOTE IMS-3 This is a progress note for Donna Mathews, a 63 y.o. who has been admitted for 1 midnights DATE OF ADMISSION 05/16/2024 9:45 PM TODAY'S DATE: 05/17/24 CHIEF COMPLAINT: lethargy, missed dialysis ADMITTED FOR: missed dialysis, uremia SUBJECTIVE: PROBLEM STATEMENT/HOSPITAL COURSE: Donna Mathews is a 63 y.o. female who has past medical history significant for right lower extremity wounds for past 3 years, multiple sclerosis, chronic urinary incontinence, end-stage renal disease on dialysis every day through left upper extremity fistula, and anemia of chronic disease. Patient lives at [facility] since 2012. She mentions feeling unwell for the past 5 days (since Saturday), with a sore throat and dry cough. She had a dialysis session on Saturday, during which she experienced back pain due to which session was stopped. Reportedly, she refused dialysis session the next day. The day prior to presentation, she was noted to be lethargic and hypoxic, requiring supplemental oxygen. EMS was called, and she was transported to [place] [facility]. During transport, she received Duoneb treatment, which resulted in improvement of her oxygen saturation. She was transferred here for hemodialysis. She reports that she does not know why she was sent to the ED. She denies chest pain, shortness of breath, abdominal pain, nausea, vomiting, recent sick contacts, or recent travel. She states her right lower extremity wound is improving. Of note,due to worsening of right lower extremity wound, she was scheduled for surgical debridement in Mar 2024 however was canceled due to improvement in wound. She patient follows with wound care (last seen Mar 2024) who noted decrease in wound measurements. She also had a left lower extremity wound which has now resolved. [place] ED: White blood count 13, hemoglobin initially 6.4 repeat 7.3 (baseline 7-8), sodium 132, potassium 4.9 repeat 5.4, BUN 68 (baseline 20s). She did not receive any transfusions. Respiratory pathogen panel negative. Chest x-ray unremarkable. X-ray tibia fibula right reveals significant soft tissue swelling overlying the medial malleolus without obvious cortical erosion Superficial wound cultures and blood cultures were obtained. Patient received IV vancomycin. On assessment, patient was alert and oriented x3. Blood pressure 130/114 (MAP 120), heart rate in 70s, saturating 97% on room air. Code status was discussed and patient elected to be full code at this time. INTERVAL: Pt seen and examined at bedside this morning. She is on room air saturating well. Denies pain, denies shortness of breath. She is very hard of hearing and I had to repeat myself often. Infectious workup came back negative. Objective OBJECTIVE: Vital Signs Temp: [36.6 C (97.8 F)-36.8 C (98.2 F)] 36.6 C (97.8 F) Pulse: [58-90] 73 Resp: [18-20] 18 BP: (75-130)/(50-114) 95/58 SpO2: [90 %-100 %] 100 % O2 Device: None (Room air) Weight: Admission weight: Wt Readings from Last 3 Encounters: 05/15/24 134.9 kg (297 lb 8 oz) 04/17/24 126.4 kg (278 lb 9.6 oz) 03/12/24 129.3 kg (285 lb) Input/Output: No intake or output data in the 24 hours ending 05/17/24 0741 Physical Exam BP 95/58 Pulse 73 Temp 36.6 C (97.8 F) (Oral) Resp 18 SpO2 100% Vitals: 05/17/24 0617 BP: 95/58 Pulse: 73 Resp: Temp: SpO2: 100% Physical Exam Constitutional: General: She is not in acute distress. Appearance: She is obese. She is not ill-appearing. HENT: Head: Normocephalic and atraumatic. Ears: Comments: Hard of hearing Mouth/Throat: Mouth: Mucous membranes are moist. Eyes: Extraocular Movements: Extraocular movements intact. Pupils: Pupils are equal, round, and reactive to light. Cardiovascular: Rate and Rhythm: Normal rate and regular rhythm. Heart sounds: Normal heart sounds. Pulmonary: Effort: Pulmonary effort is normal. Breath sounds: Normal breath sounds. Skin: Comments: Healing pressure wound left lateral leg, wound on R lateral leg, wound above buttocks as seen in media tab Neurological: General: No focal deficit present. Mental Status: She is alert. Labs Results from last 7 days Lab Units 05/16/24 1640 05/16/24 0500 05/15/24 1552 WBC X10E9/L 13.0* 12.1* 14.7* HEMOGLOBIN g/dL 7.3* 6.4* 7.6* HEMATOCRIT % 21.9* 18.8* 22.5* PLATELETS X10E9/L 154 140* 153 Results from last 7 days Lab Units 05/17/24 0405 05/16/24 1530 05/16/24 0500 SODIUM mmol/L 134 132* 133* POTASSIUM mmol/L 5.1* 5.4* 4.9 CHLORIDE mmol/L 95* 94* 96* CO2 mmol/L BUN mg/dL 70* 67* 68* CREATININE mg/dL 6.97* 6.33* 6.10* CALCIUM mg/dL 8.2* 7.8* 7.4* PHOSPHORUS mg/dL 4.6 -- -- MAGNESIUM mg/dL 1.8 -- -- Results from last 7 days Lab Units 05/16/24 1530 05/16/24 0500 05/15/24 1552 ALBUMIN g/dL 2.6* 2.2* 2.8* TOTAL PROTEIN g/dL 5.9* 5.2* 6.3 ALT U/L 22 21 24 AST U/L 25 21 26 ALK PHOS U/L 66 56 65 Results from last 7 days Lab Units 05/17/24 0405 05/16/24 1530 05/16/24 0500 GLUCOSE mg/dL 76 89 89 Lab Results Component Value Date HGBA1C 5.5 09/14/2022 Invalid input(s): ABGOXYGENSOUE Results from last 7 days Lab Units 05/15/242008 LACTIC ACID mmol/L 1.4 Lab Results Component Value Date WBCU 60 (H) 07/12/2023 SPECIFICGRA 1.015 07/12/2023 LEUKOCYTE MODERATE (A) 07/12/2023 UROBILINOGEN 0.2 07/12/2023 Imaging X-ray tibia fibula right minimum 2 views Result Date: 05/15/2024 EXAM: XR TIBIA FIBULA RT MIN 2 VWS CLINICAL INDICATIONS: infection. Confusion, lethargy. No sore on right lower extremity. FINDINGS: Changes of total knee arthroplasty, partially visualized, without obvious hardware complication. Hardware is also partially assessed in the first digit metatarsals. Bone demineralization without evidence of acute fracture or malalignment. Significant soft tissue swelling overlying the medial malleolus without obvious underlying cortical erosion. IMPRESSION: Significant soft tissue swelling overlying the medial malleolus without obvious underlying cortical erosion. Please note that radiographs are insensitive for the evaluation of osteomyelitis. If clinically indicated, consider further evaluation with MRI. Finalized by Jesse Mejia on 05/15/2024 5:52 PM X-ray chest 1 view Result Date: 05/15/2024 Clinical history: Shortness of breath. Lethargy. Comparisons: None Findings: AP upright chest radiograph obtained at 4:53 PM. Heart size and pulmonary vasculature appear within normal limits. There is hypoventilation with low lung volumes. No pulmonary parenchymal consolidation. No pleural effusion. No pneumothorax. IMPRESSION: 1. Hypoventilation with low lung volumes, otherwise no acute finding in the chest. Finalized by Jignesh Aguillon MD on 05/15/2024 5:[address] brain without contrast Result Date: 05/15/2024 HISTORY: A 63-year-old female with the history of the altered mental status. EXAM/TECHNIQUE: Multidetector spiral CT scan of brain is performed. Multiplanar reconstruction images are reformatted. All CT scans at this facility use dose modulation, iterative reconstruction, and/or weight based dosing when appropriate to reduce radiation dose to as low as reasonably achievable. COMPARISON: None available. FINDINGS: There is generalize cortical atrophy. Ventricular system is normal in size and configuration for the patient's age and generalized atrophy. There are vague hypodense regions in the deep white matter supratentorially consistent with small vessels ischemic change. There is no evidence of intracranial hemorrhage or acute pathology. The cerebellum and brainstem are unremarkable. No mass effect, midline shift of the structures or extra-axial fluid collections are noted. The calvarium is intact. Mucosal thickening is seen in the paranasal sinuses consistent with chronic sinusitis. Mastoid air cells are clear. IMPRESSION: * No evidence of intracranial hemorrhage or acute pathology. * Small vessels ischemic change in the deep white matter supratentorially and generalized atrophy. * Chronic paranasal sinusitis. Finalized by Jose C Stock MD on 05/15/2024 5:08 PM Cultures Microbiology Results Procedure Component Value Units Date/Time Blood culture [[id number]] Collected: 05/15/24 1613 Specimen: Blood Updated: 05/16/242217 Specimen Notes right wrist Culture NO GROWTH 1 DAY Wound culture superficial includes gram stain [[id number]] Collected: 05/15/24 1606 Specimen: Wound Swab Updated: 05/15/24 2338 Gram Stain Result 0 to 1 WHITE BLOOD CELLS/LPF 10 to 24 SQUAMOUS EPITHELIAL CELLS/LPF MODERATE GRAM POSITIVE COCCI IN PAIRS AND CHAINS FEW GRAM POSITIVE COCCI IN CLUSTERS Culture PENDING Blood culture [[id number]] Collected: 05/15/24 1600 Specimen: Blood Updated: 05/16/24 2218 Specimen Notes right hand Culture NO GROWTH 1 DAY Urine culture [[id number]] Collected: 05/15/24 1544 Specimen: Urine Updated: 05/15/24 2228 SARS/FLU A+B/RSV by NAAT/Molecular (M4RT Collection Tube) [[id number]] Collected: 05/15/24 1520 Specimen: Nasopharynx Updated: 05/15/24 1634 FLU A PCR Negative FLU B PCR Negative RSV by PCR Negative SARS CoV 2 BY PCR Not Detected HOSPITAL MEDICATIONS: Scheduled: atorvastatin, 80 mg, oral, HS carvediloL, 3.125 mg, oral, Daily darbepoetin xavier (ARANESP) injection, 100 mcg, subcutaneous, Weekly guaiFENesin, 600 mg, oral, Q12H ANNALISE heparin (porcine), 5,000 Units, subcutaneous, Q8H ANNALISE ipratropium-albuteroL, 3 mL, nebulization, Q6H midodrine, 10 mg, oral, TID sevelamer, 800 mg, oral, TID with meals sodium chloride, 3 mL, intravenous, Q12H ANNALISE sodium zirconium cyclosilicate, 10 g, oral, Daily Infusions: dextrose 5 % in water, 100 mL/hr sodium chloride 0.9 %, 20 mL/hr As Needed: benzocaine-menthoL dextrose dextrose 5 % in water dextrose 50 % in water (D50W) glucagon (human recombinant) sodium chloride sodium chloride sodium chloride 0.9 % ASSESSMENT/PLAN: Hyperkalemia - improved End stage renal disease on hemodialysis everyday - Patient had one incomplete session and missed one session of hemodialysis - Resume home [place] - Consult nephrology, appreciate recommendations -plan for MWF dialysis for now Right lower extremity pressure ulcer Pressure ulcer in right buttock and coccyx - Consult wound care - Compared pictures of the wound from previous from 3 days ago. Does not seem to be infected -infectious workup is negative - Will monitor off antibiotics Upper respiratory tract illness, likely viral -RPP negative at OSH -CXR negative - Supportive care Chronic Issues: multiple sclerosis Chronic urinary incontinence End-stage renal disease on dialysis every day through left upper extremity fistula Anemia of chronic disease DVT prophylaxis: SQH Diet: Renal Fluids: none Anticipated Disposition: back to facility Code Status: FULL - Todd Chen MD 05/17/24 7:41 AM Manager Dialysis, PGY-1 Cosigned by Kimberley Soni MD at 05/17/2024 5:53 PM EDT Associated attestation - Kimberley Soni MD - 05/17/2024 5:53 PM EDT I have seen and discussed the patient during rounds. I performed and participated in the critical/stanton portions of the service. I was directly involved in the management and treatment plan of the patient. I reviewed the resident's note and agree with the findings and plan. KIMBERLEY SONI MD 05/17/2024 5:53 PM documented in this encounter [facility] 05-19-2024 Consult note Associated Order (s): CONSULT WOUND CARE SERVICES Images from the original note were not included. Wound Care Service Line - Consult Note Date of Admission: 05/16/2024 9:45 PM Reason for Consult: right lower extremity PCP: TODD GEORGE MD Admission Chief Complaint: No chief complaint on file. History of Present Illness: Donna Mathews is a 63 y.o. never/non smoker female who presented to [facility] on 05/16 as a transfer from [place] [facility] where she presented from jail [facility] with c/o lethargy, shortness of breath/hypoxic, sore throat and dry cough for 5 days prior. She had XR Right tibia/fibula in [place] [facility] which revealed significant soft tissue swelling overlying the medial malleolus without obvious cortical erosion. She was transferred to [facility] for HD needs. Past Medical History includes but is not limited to DM type 2, ESRD on HD, Anemia, lymphedema, MS, HTN, HLD, stroke. Wound Care consulted for pressure injury wounds to right lateral calf, patient also noted to have left lateral calf evolving DTPI wound as well - pressure related from power chair, sched to be refitted. Patient also has pressure related wounds to sacral region and right buttock, likely exacerbated by incontinence, all of which started prior to admission. Current wound care includes: medihoney and foam Patient has been managed by Elidia Tierney CNP in [facility] wound clinic. Tobacco Use: Low Risk (05/15/2024) Patient History Smoking Tobacco Use: Never Smokeless Tobacco Use: Never Passive Exposure: Not on file PMH: Past Medical History: Diagnosis Date Anemia Anemia of chronic disease 08/30/2022 [address]xiety AV fistula stenosis ([facility]) 04/01/2023 Charcot's arthropathy 03/27/2013 Charcot's joint CHF (congestive heart failure) ([facility]) Chronic indwelling Douglas catheter 09/13/2022 Chronic kidney disease Chronic renal impairment, stage 4 (severe) ([facility]) 08/30/2022 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 Deep vein thrombosis ([facility]) RLE Dermatitis associated with moisture 09/14/2022 Diabetes mellitus type 2, controlled ([facility]) Dialysis patient ([facility]) End stage renal disease ([facility]) 09/05/2022 ESRD (end stage renal disease) ([facility]) 09/13/2022 Family history of MS (multiple sclerosis) 09/13/2022 GERD (gastroesophageal reflux disease) Hyperlipidemia Hypertension Leukocytosis 09/13/2022 Lymphedema Morbid obesity ([facility]) 09/13/2022 MS (multiple sclerosis) ([facility]) 09/13/2022 Neuromuscular dysfunction of bladder Obesity Personal history of DVT (deep vein thrombosis) 09/29/2013 Positive occult stool blood test 04/17/2024 Stroke ([facility]) Tabes dorsalis Thrombocytopenia ([facility]) Traumatic ulcer of left lower extremity with fat layer exposed ([facility]) 09/14/2022 Traumatic ulcer of right lower extremity with fat layer exposed ([facility]) 09/14/2022 PSH: Past Surgical History: Procedure Laterality Date BARIATRIC SURGERY Catheter Placement N/A 09/07/2022 Performed by Angelique Mckinnon DO at [facility] CARDIAC CATH LABS CREATION ARTERIOVENOUS FISTULA UPPER EXTREMITY BRACHIAL CEPHALIC, EXPLORATION LEFT WRIST WITH REPAIR OF RADIAL ARTERY LEFT Left 10/31/2022 Performed by Braydon Rich MD at [facility] HEMODIALYSIS INPATIENT 05/31/2023 LIPECTOMY AVF Left 02/25/2023 Performed by Krystin Salcedo MD at [facility] Allergies: No Known Allergies Home Meds: Medications Prior to Admission Medication Sig Dispense Refill Last Dose/Taking acetaminophen (TYLENOL) 325 mg tablet Take 2 tablets (650 mg total) by mouth every 8 (eight) hours Indications: pain. Past Week atorvastatin (LIPITOR) 80 mg tablet Take 1 tablet (80 mg total) by mouth once daily at bedtime. Past Week azelastine (ASTELIN) 137 mcg (0.1 %) nasal spray Administer 2 sprays into each nostril once daily at bedtime Indications: seasonal runny nose. Use in each nostril as directed Past Week B complex-vitamin C-folic acid (NEPHROCAP) 1 mg capsule Take 1 capsule by mouth in the morning. Give one tablet by mouth in the morning for ESRD. Past Week biotin 1 mg tablet Take 1 tablet (1 mg total) by mouth in the morning. Past Week calcium carbonate (OS-NAIMA) 500 mg elemental (1,250 mg) tablet Take 2 tablets (1,000 mg total) by mouth in the morning. Indications: low amount of calcium in the blood. Past Week carboxymethylcellulose (REFRESH TEARS) 1 % ophthalmic solution Administer 1 drop to both eyes in the morning. Indications: dry eye. Past Week carvediloL (COREG) 6.25 mg tablet Take 0.5 tablets (3.125 mg total) by mouth in the morning. Past Week cholecalciferol (VITAMIN D3) 1,000 units tablet Take 1 tablet (1,000 Units total) by mouth in the morning. (Patient taking differently: Take 4 tablets (4,000 Units total) by mouth in the morning.) 30 tablet 3 Past Week ipratropium-albuteroL (DUONEB) 0.5 mg-3 mg(2.5 mg base)/3 mL nebulizer Inhale 3 mL by nebulization every 6 (six) hours as needed for wheezing or shortness of breath. Past Week lactulose (CHRONULAC) 10 gram/15 mL solution Take 45 mL (30 g total) by mouth daily as needed (constipation). Past Week LUTEIN ORAL Take 1 tablet by mouth in the morning. Past Week menthol (BIOFREEZE, MENTHOL,) 4 % gel Apply 1 Application topically every 8 (eight) hours as needed Indications: pain associated with arthritis, sprains and strains. Past Week midodrine (PROAMATINE) 10 mg tablet Take 1 tablet (10 mg total) by mouth 3 (three) times a day. Past Week midodrine (PROAMATINE) 5 mg tablet Take 1 tablet (5 mg total) by mouth daily as needed (if SBP < 100; do not exceed 40 mg/day). Past Week modafiniL (PROVIGIL) 100 mg tablet Take 1 tablet (100 mg total) by mouth in the morning. For MS. Past Week multivitamin with minerals tablet Take 1 tablet by mouth in the morning. Give one tablet by mouth in the afternoon for preventive . Past Week nystatin (MYCOSTATIN) powder Apply 1 Application topically as needed (As needed). Apply to under breast and folds topically as needed for dermatitis Past Week OXcarbazepine (TRILEPTAL) 300 mg tablet Take 1 tablet (300 mg total) by mouth in the morning and 1 tablet (300 mg total) before bedtime. For MS/neuropathy. Past Week oxycodone HCl (OXYCODONE ORAL) Take 5 mg by mouth every 6 (six) hours as needed (every 6 hours). Give one tablet as by mouth every 6 hours as needed for moderate to severe pain Max Daily Amount: 20 mg Past Week pantoprazole (PROTONIX) 40 mg EC tablet Take 1 tablet (40 mg total) by mouth in the morning. Indications: gastroesophageal reflux disease. Past Week polyethylene glycol (GLYCOLAX) 17 gram packet Take 17 g by mouth in the morning. Indications: constipation. In the afternoon . Past Week pregabalin (LYRICA) 75 mg capsule Take 1 capsule (75 mg total) by mouth once daily at bedtime. Give 1 capsule by mouth at bed time for chronic pain Past Week sennosides-docusate sodium (SENOKOT-S) 8.6-50 mg Take 1 tablet by mouth every 12 (twelve) hours as needed for constipation. Past Week sertraline (ZOLOFT) 25 mg tablet Take 2 tablets (50 mg total) by mouth in the morning. Past Week sevelamer (RENVELA) 800 mg tablet Take 1 tablet (800 mg total) by mouth in the morning and 1 tablet (800 mg total) at noon and 1 tablet (800 mg total) in the evening. Take with meals. Past Week simethicone (MYLICON) 80 mg chewable tablet Chew 1 tablet (80 mg total) and swallow every 6 (six) hours as needed (indigestion). Past Week sodium zirconium cyclosilicate (LOKELMA) 10 gram packet Take 10 g by mouth 2 (two) times a week. Saturday and Saturday Past Week trazodone HCl (TRAZODONE ORAL) Take 12.5 mg by mouth nightly. (Patient taking differently: Take 25 mg by mouth nightly Indications: depression, difficulty sleeping.) Taking Differently bisacodyL (DULCOLAX) 5 mg EC tablet Take 1 tablet (5 mg total) by mouth daily as needed for constipation. (Patient not taking: Reported on 04/17/2024) 4 tablet 0 Unknown nut.tx.imp.renal fxn,lac-reduc (NEPRO CARB STEADY) 0.08 gram-1.8 kcal/mL liquid Take 237 fluid ounces by mouth daily after dinner. (Patient not taking: Reported on 05/13/2024) polyethylene glycol (GoLYTELY) 236-22.74-6.74 -5.86 gram solution Starting at noon on day prior to procedure, drink 8 ounces every 30 minutes until all gone or stools are clear. May add flavor packet. (Patient not taking: Reported on 05/13/2024) 4000 mL 0 EDWIN-LOLIS RX 1-60-300 mg-mg-mcg tablet (Patient not taking: Reported on 04/17/2024) Social History: Social History Socioeconomic History Marital status: Single Spouse name: Not on file Number of children: Not on file Years of education: Not on file Highest education level: Not on file Occupational History Not on file Tobacco Use Smoking status: Never Smokeless tobacco: Never Vaping Use Vaping status: Never Used Substance and Sexual Activity Alcohol use: Not Currently Comment: rare Drug use: Never Sexual activity: Defer Other Topics Concern Not on file Social History Narrative Not on file Social Drivers of Health Financial Resource Strain: Low Risk (05/30/2023) Overall Financial Resource Strain (CARDIA) Difficulty of Paying Living Expenses: Not hard at all Food Insecurity: No Food Insecurity (05/17/2024) Hunger Screening Food Insecurity - Worry: Never True Food Insecurity - Inability: Never True Transportation Needs: No Transportation Needs (05/17/2024) PRAPARE - Transportation Lack of Transportation (Medical): No Lack of Transportation (Non-Medical): No Physical Activity: Not on file Stress: Not on file Social Connections: Not on file Interpersonal Safety: Not At Risk (05/17/2024) Humiliation, Afraid, Rape, and Kick questionnaire Fear of Current or Ex-Partner: No Emotionally Abused: No Physically Abused: No Sexually Abused: No Housing Instability: Low Risk (05/17/2024) Housing Instability Housing Instability: No Family History: Family History Problem Relation Age of Onset Breast cancer Cousin Colon cancer Maternal cousin I have personal reviewed past medical history including surgeries, social history, and family history. I have also reviewed allergies and home medications. They are documented in this note to their detail, and if there are none noted, they will further indicate no pertinent history. Review of Systems Review of Systems Constitutional: Positive for fatigue. HENT: Negative for facial swelling. Respiratory: Positive for shortness of breath. Cardiovascular: Positive for leg swelling. Gastrointestinal: Negative for blood in stool. Genitourinary: Positive for difficulty urinating. Negative for dysuria. Musculoskeletal: Positive for arthralgias, gait problem and myalgias. Skin: Positive for wound. Neurological: Positive for weakness. Psychiatric/Behavioral: Negative for agitation. Physical Exam Vital Signs: BP 116/71 Pulse 83 Temp 36.4 C (97.5 F) (Oral) Resp 20 Ht 167.6 cm (5' 6 ) Wt 131.9 kg (290 lb 12.6 oz) SpO2 95% BMI 46.93 kg/m Physical Exam Vitals reviewed. Constitutional: General: She is awake. She is not in acute distress. Appearance: She is morbidly obese. She is ill-appearing. HENT: Head: Normocephalic. Eyes: Extraocular Movements: Extraocular movements intact. Cardiovascular: Rate and Rhythm: Normal rate. Pulses: Normal pulses. Dorsalis pedis pulses are 2+ on the right side and 2+ on the left side. Pulmonary: Effort: Pulmonary effort is normal. Abdominal: Palpations: Abdomen is soft. Tenderness: There is no abdominal tenderness. Musculoskeletal: General: Tenderness present. Right lower leg: Edema present. Left lower leg: Edema present. Skin: Capillary Refill: Capillary refill takes 2 to 3 seconds. Coloration: Skin is pale. Findings: Wound present. Comments: See wound assessment Neurological: General: No focal deficit present. Mental Status: She is alert and oriented to person, place, and time. Motor: Weakness present. Gait: Gait abnormal. Psychiatric: Mood and Affect: Mood normal. Behavior: Behavior normal. Behavior is cooperative. Labs Reviewed: Results from last 7 days Lab Units 05/19/24 0852 05/19/24 0332 05/18/24 0503 05/17/24 0405 05/16/24 1640 05/16/24 0500 WBC X10E9/L -- 7.6 7.3 11.9* 13.0* 12.1* HEMOGLOBIN g/dL 7.3* 6.8* 7.9* 7.6* 7.3* 6.4* HEMATOCRIT % 21.7* 20.0* 22.8* 22.5* 21.9* 18.8* PLATELETS X10E9/L -- 172 161 ESTIMATE OF PLATELETS, NORMAL 154 140* Results from last 7 days Lab Units 05/19/24 0332 05/18/24 0503 05/17/24 0823 05/17/24 0405 05/16/24 1530 05/16/24 0500 POTASSIUM mmol/L 4.7 5.2* -- 5.1* 5.4* 4.9 CO2 mmol/L 23 23 -- 25 24 25 BUN mg/dL 43* 76* -- 70* 67* 68* CREATININE mg/dL 5.54* 7.57* -- 6.97* 6.33* 6.10* BEDSIDE GLUCOSE mg/dL -- -- 83 -- -- -- GLUCOSE mg/dL 86 89 -- 76 89 89 Pathology/Cytology Results No results found for the last 168 hours. Microbiology Results Procedure Component Value Units Date/Time Blood culture [[id number]] Collected: 05/15/24 1613 Specimen: Blood Updated: 05/18/24 2318 Specimen Notes right wrist Culture NO GROWTH 3 DAYS Wound culture superficial includes gram stain [[id number]] (Abnormal) (Susceptibility) Collected: 05/15/24 1606 Specimen: Wound Swab Updated: 05/19/24 0736 Gram Stain Result 0 to 1 WHITE BLOOD CELLS/LPF 10 to 24 SQUAMOUS EPITHELIAL CELLS/LPF MODERATE GRAM POSITIVE COCCI IN PAIRS AND CHAINS FEW GRAM POSITIVE COCCI IN CLUSTERS Culture MANY STAPHYLOCOCCUS AUREUS METHICILLIN RESISTANT MANY STREPTOCOCCUS AGALACTIAE (GROUP B) RARE STAPHYLOCOCCUS AUREUS METHICILLIN RESISTANT ALONG WITH RARE MIXED GRAM NEGATIVE ORGANISMS : NO PSEUDOMONAS AERUGINOSA ISOLATED ALONG WITH RARE NORMAL SKIN MONI Susceptibility Staphylococcus Aureus (1) EVAN METHOD Cefazolin RESISTANT(DEDUCED) Clindamycin 0.25 Susceptible Daptomycin 0.25 Susceptible Doxycycline 2 Susceptible Oxacillin >=4 Resistant TRIMETH/SULFAMETHOXAZOLE <=0.5/9.5 Susceptible Vancomycin <=0.5 Susceptible Susceptibility Staphylococcus Aureus (3) EVAN METHOD Cefazolin RESISTANT(DEDUCED) Clindamycin <=0.12 Resistant [1] Daptomycin 0.25 Susceptible Doxycycline >=16 Resistant [2] Oxacillin >=4 Resistant TRIMETH/SULFAMETHOXAZOLE >=16/304 Resistant Vancomycin 1 Susceptible [1] INDUCIBLE RESISTANCE TO CLINDAMYCIN DETECTED [2] CLIA ID [id number] Blood culture [[id number]] Collected: 05/15/24 1600 Specimen: Blood Updated: 05/18/24 2318 Specimen Notes right hand Culture NO GROWTH 3 DAYS Urine culture [[id number]] (Abnormal) Collected: 05/15/24 1544 Specimen: Urine from [facility] Updated: 05/19/24 1049 Specimen Notes URINE RECEIVED WITHOUT PRESERVATIVE Culture >100,000 ORGANISMS/mL PROTEUS MIRABILIS >100,000 ORGANISMS/mL ESCHERICHIA COLI SUSCEPTIBILITY TESTING IN PROGRESS SARS/FLU A+B/RSV by NAAT/Molecular (M4RT Collection Tube) [[id number]] Collected: 05/15/24 1520 Specimen: Nasopharynx Updated: 05/15/24 1634 FLU A PCR Negative FLU B PCR Negative RSV by PCR Negative SARS CoV 2 BY PCR Not Detected Studies Reviewed: No results found. Wound Assessment: Type of Wound/Aetiology: pressure injury wounds, present on admission Severity: Stage 3 fat-layer exposed Location: sacral region and right ischium Measurement: sacral 3cm x 3cm x 0.4cm; right ischium 2cm x 2cm x 0.1cm Undermining: none Tunneling: none Drainage/Exudate/Odor: mild serosanguineous no odor Wound bed: slough Wound Edges: attached Periwound: intact Measureable improvement: new wound encounter Type of Wound/Aetiology: chronic and pressure injury wound, present on admission Severity: Stage 3 fat-layer exposed Location: right lateral calf Measurement: 17cm x 6cm x 0.5cm Undermining: none Tunneling: none Drainage/Exudate/Odor: moderate serous, serosanguineous, and small green/yellow colored no odor Wound bed: slough and pink tissue Wound Edges: attached Periwound: edema and intact Measureable improvement: new wound encounter Type of Wound/Aetiology: pressure injury wound, present on admission Severity: deep tissue injury (DTI) starting to evolve Location: left lateral calf Measurement: 1.5cm x 13cm Undermining: none Tunneling: none Drainage/Exudate/Odor: scant and mild serosanguineous no odor Wound bed: maroon/purple Wound Edges: attached Periwound: edema and intact Measureable improvement: new wound encounter Principal Problem: Wound infection Active Problems: Traumatic ulcer of right lower extremity with fat layer exposed (CMS-HCC) Dermatitis associated with moisture Lymphedema Pressure injury of right calf, stage 3 (CMS-HCC) Hyperkalemia Pressure ulcer of sacral region, stage 3 (CMS-HCC) Pressure injury of deep tissue of left calf Wound Plan Dressing: Right lateral calf wound: Cleanse with soap and water or purple package skin care wipes. After cleansing apply silver alginate to open wound beds, cover with abd pad and secure with kerlix. Repeat daily and prn. please take an updated wound photo daily with each dressing change after cleansing Left calf wound: Cleanse with soap and water or purple package skin care wipes. After cleansing apply adaptic over open wound, cover with abd pad and secure with kerlix. Repeat daily and prn. please take an updated wound photo daily with each dressing change after cleansing Sacrum and right buttock wounds: Cleanse with soap and water or purple package skin care wipes. Utilize sea clens wound cleanser spray to help loosen barrier cream. After cleansing, thinly apply Z guard barrier cream to the wound (and periwound). Repeat twice daily and prn. The Z guard will help protect wound from incontinence/body fluids, DO NOT CAKE ON or vigorously scrub off. please take an updated wound photo daily with dressing change after cleansing Offloading/Skin Care/Edema Management: - continue specialty Isotour bed ERIC/pressure redistribution - turn and reposition minimally every 2 hours - pad and protect bony prominences - moisturize dry skin, do not massage vigorously - elevate bilateral lower extremity/ies and float heel(s) on pillows or offloading true andrzej boots - ordered - elevate upper extremities on pillows Antibiotics: Studies/Testing: reviewed as noted above Medical Management: per primary service Wound care will continue to follow while inpatient, orders written for bedside RN's to complete daily skin assessment and wound care orders daily and/or as written. May discharge from wound care perspective when medically stable as advised by other services. Follow up: In the outpatient wound care clinic with Elidia FRANCISCO as scheduled or within 1-2 weeks of discharge. With other services as advised upon discharge. Thank you for allowing us to participate in the care of this patient. Please feel free to call us with any questions or concerns. GINA Kim 05/19/24 [facility] W[facility] V[facility] Service Line Sat-Sat 8a-3p [phone] - pager M-F 8a-3p Secure Chat preferred & fastest response time Needs outside these hours please contact the reciprocating department: general surgery, vascular surgery, ortho or podiatry. Thank you! This note was created with the assistance of a speech-recognition program. Although the intention is to generate a document that accurately reflects the content of the visit, no guarantees can be provided that every mistake/misinterpretation has been identified and corrected by editing. GINA Kim 05/19/[address] [facility] 05-19-2024 Consult note Associated Order (s): CONSULT WOUND CARE SERVICES Images from the original note were not included. Wound Care Service Line - Consult Note Date of Admission: 05/16/2024 9:45 PM Reason for Consult: right lower extremity PCP: TODD GEORGE MD Admission Chief Complaint: No chief complaint on file. History of Present Illness: Donna Mathews is a 63 y.o. never/non smoker female who presented to [facility] on 05/16 as a transfer from [place] [facility] where she presented from jail [facility] with c/o lethargy, shortness of breath/hypoxic, sore throat and dry cough for 5 days prior. She had XR Right tibia/fibula in [place] [facility] which revealed significant soft tissue swelling overlying the medial malleolus without obvious cortical erosion. She was transferred to [facility] for HD needs. Past Medical History includes but is not limited to DM type 2, ESRD on HD, Anemia, lymphedema, MS, HTN, HLD, stroke. Wound Care consulted for pressure injury wounds to right lateral calf, patient also noted to have left lateral calf evolving DTPI wound as well - pressure related from power chair, sched to be refitted. Patient also has pressure related wounds to sacral region and right buttock, likely exacerbated by incontinence, all of which started prior to admission. Current wound care includes: medihoney and foam Patient has been managed by Elidia Tierney CNP in [facility] wound clinic. Tobacco Use: Low Risk (05/15/2024) Patient History Smoking Tobacco Use: Never Smokeless Tobacco Use: Never Passive Exposure: Not on file PMH: Past Medical History: Diagnosis Date Anemia Anemia of chronic disease 08/30/20[address] fistula stenosis ([facility]) 04/01/2023 Charcot's arthropathy 03/27/2013 Charcot's joint CHF (congestive heart failure) ([facility]) Chronic indwelling Douglas catheter 09/13/2022 Chronic kidney disease Chronic renal impairment, stage 4 (severe) ([facility]) 08/30/2022 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 Deep vein thrombosis ([facility]) RLE Dermatitis associated with moisture 09/14/2022 Diabetes mellitus type 2, controlled ([facility]) Dialysis patient ([facility]) End stage renal disease ([facility]) 09/05/2022 ESRD (end stage renal disease) ([facility]) 09/13/2022 Family history of MS (multiple sclerosis) 09/13/2022 GERD (gastroesophageal reflux disease) Hyperlipidemia Hypertension Leukocytosis 09/13/2022 Lymphedema Morbid obesity ([facility]) 09/13/2022 MS (multiple sclerosis) ([facility]) 09/13/2022 Neuromuscular dysfunction of bladder Obesity Personal history of DVT (deep vein thrombosis) 09/29/2013 Positive occult stool blood test 04/17/2024 Stroke ([facility]) Tabes dorsalis Thrombocytopenia ([facility]) Traumatic ulcer of left lower extremity with fat layer exposed ([facility]) 09/14/2022 Traumatic ulcer of right lower extremity with fat layer exposed ([facility]) 09/14/2022 PSH: Past Surgical History: Procedure Laterality Date BARIATRIC SURGERY Catheter Placement N/A 09/07/2022 Performed by Angelique Mckinnon DO at [facility] CARDIAC CATH LABS CREATION ARTERIOVENOUS FISTULA UPPER EXTREMITY BRACHIAL CEPHALIC, EXPLORATION LEFT WRIST WITH REPAIR OF RADIAL ARTERY LEFT Left 10/31/2022 Performed by Braydon Rich MD at [facility] HEMODIALYSIS INPATIENT 05/31/2023 LIPECTOMY AVF Left 02/25/2023 Performed by Krystin Salcedo MD at [facility] Allergies: No Known Allergies Home Meds: Medications Prior to Admission Medication Sig Dispense Refill Last Dose/Taking acetaminophen (TYLENOL) 325 mg tablet Take 2 tablets (650 mg total) by mouth every 8 (eight) hours Indications: pain. Past Week atorvastatin (LIPITOR) 80 mg tablet Take 1 tablet (80 mg total) by mouth once daily at bedtime. Past Week azelastine (ASTELIN) 137 mcg (0.1 %) nasal spray Administer 2 sprays into each nostril once daily at bedtime Indications: seasonal runny nose. Use in each nostril as directed Past Week B complex-vitamin C-folic acid (NEPHROCAP) 1 mg capsule Take 1 capsule by mouth in the morning. Give one tablet by mouth in the morning for ESRD. Past Week biotin 1 mg tablet Take 1 tablet (1 mg total) by mouth in the morning. Past Week calcium carbonate (OS-NAIMA) 500 mg elemental (1,250 mg) tablet Take 2 tablets (1,000 mg total) by mouth in the morning. Indications: low amount of calcium in the blood. Past Week carboxymethylcellulose (REFRESH TEARS) 1 % ophthalmic solution Administer 1 drop to both eyes in the morning. Indications: dry eye. Past Week carvediloL (COREG) 6.25 mg tablet Take 0.5 tablets (3.125 mg total) by mouth in the morning. Past Week cholecalciferol (VITAMIN D3) 1,000 units tablet Take 1 tablet (1,000 Units total) by mouth in the morning. (Patient taking differently: Take 4 tablets (4,000 Units total) by mouth in the morning.) 30 tablet 3 Past Week ipratropium-albuteroL (DUONEB) 0.5 mg-3 mg(2.5 mg base)/3 mL nebulizer Inhale 3 mL by nebulization every 6 (six) hours as needed for wheezing or shortness of breath. Past Week lactulose (CHRONULAC) 10 gram/15 mL solution Take 45 mL (30 g total) by mouth daily as needed (constipation). Past Week LUTEIN ORAL Take 1 tablet by mouth in the morning. Past Week menthol (BIOFREEZE, MENTHOL,) 4 % gel Apply 1 Application topically every 8 (eight) hours as needed Indications: pain associated with arthritis, sprains and strains. Past Week midodrine (PROAMATINE) 10 mg tablet Take 1 tablet (10 mg total) by mouth 3 (three) times a day. Past Week midodrine (PROAMATINE) 5 mg tablet Take 1 tablet (5 mg total) by mouth daily as needed (if SBP < 100; do not exceed 40 mg/day). Past Week modafiniL (PROVIGIL) 100 mg tablet Take 1 tablet (100 mg total) by mouth in the morning. For MS. Past Week multivitamin with minerals tablet Take 1 tablet by mouth in the morning. Give one tablet by mouth in the afternoon for preventive . Past Week nystatin (MYCOSTATIN) powder Apply 1 Application topically as needed (As needed). Apply to under breast and folds topically as needed for dermatitis Past Week OXcarbazepine (TRILEPTAL) 300 mg tablet Take 1 tablet (300 mg total) by mouth in the morning and 1 tablet (300 mg total) before bedtime. For MS/neuropathy. Past Week oxycodone HCl (OXYCODONE ORAL) Take 5 mg by mouth every 6 (six) hours as needed (every 6 hours). Give one tablet as by mouth every 6 hours as needed for moderate to severe pain Max Daily Amount: 20 mg Past Week pantoprazole (PROTONIX) 40 mg EC tablet Take 1 tablet (40 mg total) by mouth in the morning. Indications: gastroesophageal reflux disease. Past Week polyethylene glycol (GLYCOLAX) 17 gram packet Take 17 g by mouth in the morning. Indications: constipation. In the afternoon . Past Week pregabalin (LYRICA) 75 mg capsule Take 1 capsule (75 mg total) by mouth once daily at bedtime. Give 1 capsule by mouth at bed time for chronic pain Past Week sennosides-docusate sodium (SENOKOT-S) 8.6-50 mg Take 1 tablet by mouth every 12 (twelve) hours as needed for constipation. Past Week sertraline (ZOLOFT) 25 mg tablet Take 2 tablets (50 mg total) by mouth in the morning. Past Week sevelamer (RENVELA) 800 mg tablet Take 1 tablet (800 mg total) by mouth in the morning and 1 tablet (800 mg total) at noon and 1 tablet (800 mg total) in the evening. Take with meals. Past Week simethicone (MYLICON) 80 mg chewable tablet Chew 1 tablet (80 mg total) and swallow every 6 (six) hours as needed (indigestion). Past Week sodium zirconium cyclosilicate (LOKELMA) 10 gram packet Take 10 g by mouth 2 (two) times a week. Saturday and Saturday Past Week trazodone HCl (TRAZODONE ORAL) Take 12.5 mg by mouth nightly. (Patient taking differently: Take 25 mg by mouth nightly Indications: depression, difficulty sleeping.) Taking Differently bisacodyL (DULCOLAX) 5 mg EC tablet Take 1 tablet (5 mg total) by mouth daily as needed for constipation. (Patient not taking: Reported on 04/17/2024) 4 tablet 0 Unknown nut.tx.imp.renal fxn,lac-reduc (NEPRO CARB STEADY) 0.08 gram-1.8 kcal/mL liquid Take 237 fluid ounces by mouth daily after dinner. (Patient not taking: Reported on 05/13/2024) polyethylene glycol (GoLYTELY) 236-22.74-6.74 -5.86 gram solution Starting at noon on day prior to procedure, drink 8 ounces every 30 minutes until all gone or stools are clear. May add flavor packet. (Patient not taking: Reported on 05/13/2024) 4000 mL 0 DEWIN-LOLIS RX 1-60-300 mg-mg-mcg tablet (Patient not taking: Reported on 04/17/2024) Social History: Social History Socioeconomic History Marital status: Single Spouse name: Not on file Number of children: Not on file Years of education: Not on file Highest education level: Not on file Occupational History Not on file Tobacco Use Smoking status: Never Smokeless tobacco: Never Vaping Use Vaping status: Never Used Substance and Sexual Activity Alcohol use: Not Currently Comment: rare Drug use: Never Sexual activity: Defer Other Topics Concern Not on file Social History Narrative Not on file Social Drivers of Health Financial Resource Strain: Low Risk (05/30/2023) Overall Financial Resource Strain (CARDIA) Difficulty of Paying Living Expenses: Not hard at all Food Insecurity: No Food Insecurity (05/17/2024) Hunger Screening Food Insecurity - Worry: Never True Food Insecurity - Inability: Never True Transportation Needs: No Transportation Needs (05/17/2024) PRAPARE - Transportation Lack of Transportation (Medical): No Lack of Transportation (Non-Medical): No Physical Activity: Not on file Stress: Not on file Social Connections: Not on file Interpersonal Safety: Not At Risk (05/17/2024) Humiliation, Afraid, Rape, and Kick questionnaire Fear of Current or Ex-Partner: No Emotionally Abused: No Physically Abused: No Sexually Abused: No Housing Instability: Low Risk (05/17/2024) Housing Instability Housing Instability: No Family History: Family History Problem Relation Age of Onset Breast cancer Cousin Colon cancer Maternal cousin I have personal reviewed past medical history including surgeries, social history, and family history. I have also reviewed allergies and home medications. They are documented in this note to their detail, and if there are none noted, they will further indicate no pertinent history. Review of Systems Review of Systems Constitutional: Positive for fatigue. HENT: Negative for facial swelling. Respiratory: Positive for shortness of breath. Cardiovascular: Positive for leg swelling. Gastrointestinal: Negative for blood in stool. Genitourinary: Positive for difficulty urinating. Negative for dysuria. Musculoskeletal: Positive for arthralgias, gait problem and myalgias. Skin: Positive for wound. Neurological: Positive for weakness. Psychiatric/Behavioral: Negative for agitation. Physical Exam Vital Signs: BP 116/71 Pulse 83 Temp 36.4 C (97.5 F) (Oral) Resp 20 Ht 167.6 cm (5' 6 ) Wt 131.9 kg (290 lb 12.6 oz) SpO2 95% BMI 46.93 kg/m Physical Exam Vitals reviewed. Constitutional: General: She is awake. She is not in acute distress. Appearance: She is morbidly obese. She is ill-appearing. HENT: Head: Normocephalic. Eyes: Extraocular Movements: Extraocular movements intact. Cardiovascular: Rate and Rhythm: Normal rate. Pulses: Normal pulses. Dorsalis pedis pulses are 2+ on the right side and 2+ on the left side. Pulmonary: Effort: Pulmonary effort is normal. Abdominal: Palpations: Abdomen is soft. Tenderness: There is no abdominal tenderness. Musculoskeletal: General: Tenderness present. Right lower leg: Edema present. Left lower leg: Edema present. Skin: Capillary Refill: Capillary refill takes 2 to 3 seconds. Coloration: Skin is pale. Findings: Wound present. Comments: See wound assessment Neurological: General: No focal deficit present. Mental Status: She is alert and oriented to person, place, and time. Motor: Weakness present. Gait: Gait abnormal. Psychiatric: Mood and Affect: Mood normal. Behavior: Behavior normal. Behavior is cooperative. Labs Reviewed: Results from last 7 days Lab Units 05/19/24 0852 05/19/24 0332 05/18/24 0503 05/17/24 0405 05/16/24 1640 05/16/24 0500 WBC X10E9/L -- 7.6 7.3 11.9* 13.0* 12.1* HEMOGLOBIN g/dL 7.3* 6.8* 7.9* 7.6* 7.3* 6.4* HEMATOCRIT % 21.7* 20.0* 22.8* 22.5* 21.9* 18.8* PLATELETS X10E9/L -- 172 161 ESTIMATE OF PLATELETS, NORMAL 154 140* Results from last 7 days Lab Units 05/19/24 0332 05/18/24 0503 05/17/24 0823 05/17/24 0405 05/16/24 1530 05/16/24 0500 POTASSIUM mmol/L 4.7 5.2* -- 5.1* 5.4* 4.9 CO2 mmol/L 23 23 -- 25 24 25 BUN mg/dL 43* 76* -- 70* 67* 68* CREATININE mg/dL 5.54* 7.57* -- 6.97* 6.33* 6.10* BEDSIDE GLUCOSE mg/dL -- -- 83 -- -- -- GLUCOSE mg/dL 86 89 -- 76 89 89 Pathology/Cytology Results No results found for the last 168 hours. Microbiology Results Procedure Component Value Units Date/Time Blood culture [[id number]] Collected: 05/15/24 1613 Specimen: Blood Updated: 05/18/24 2318 Specimen Notes right wrist Culture NO GROWTH 3 DAYS Wound culture superficial includes gram stain [[id number]] (Abnormal) (Susceptibility) Collected: 05/15/24 1606 Specimen: Wound Swab Updated: 05/19/24 0736 Gram Stain Result 0 to 1 WHITE BLOOD CELLS/LPF 10 to 24 SQUAMOUS EPITHELIAL CELLS/LPF MODERATE GRAM POSITIVE COCCI IN PAIRS AND CHAINS FEW GRAM POSITIVE COCCI IN CLUSTERS Culture MANY STAPHYLOCOCCUS AUREUS METHICILLIN RESISTANT MANY STREPTOCOCCUS AGALACTIAE (GROUP B) RARE STAPHYLOCOCCUS AUREUS METHICILLIN RESISTANT ALONG WITH RARE MIXED GRAM NEGATIVE ORGANISMS : NO PSEUDOMONAS AERUGINOSA ISOLATED ALONG WITH RARE NORMAL SKIN MONI Susceptibility Staphylococcus Aureus (1) EVAN METHOD Cefazolin RESISTANT(DEDUCED) Clindamycin 0.25 Susceptible Daptomycin 0.25 Susceptible Doxycycline 2 Susceptible Oxacillin >=4 Resistant TRIMETH/SULFAMETHOXAZOLE <=0.5/9.5 Susceptible Vancomycin <=0.5 Susceptible Susceptibility Staphylococcus Aureus (3) EVAN METHOD Cefazolin RESISTANT(DEDUCED) Clindamycin <=0.12 Resistant [1] Daptomycin 0.25 Susceptible Doxycycline >=16 Resistant [2] Oxacillin >=4 Resistant TRIMETH/SULFAMETHOXAZOLE >=16/304 Resistant Vancomycin 1 Susceptible [1] INDUCIBLE RESISTANCE TO CLINDAMYCIN DETECTED [2] CLIA ID [id number] Blood culture [[id number]] Collected: 05/15/24 1600 Specimen: Blood Updated: 05/18/24 2318 Specimen Notes right hand Culture NO GROWTH 3 DAYS Urine culture [[id number]] (Abnormal) Collected: 05/15/24 1544 Specimen: Urine from [facility] Updated: 05/19/24 1049 Specimen Notes URINE RECEIVED WITHOUT PRESERVATIVE Culture >100,000 ORGANISMS/mL PROTEUS MIRABILIS >100,000 ORGANISMS/mL ESCHERICHIA COLI SUSCEPTIBILITY TESTING IN PROGRESS SARS/FLU A+B/RSV by NAAT/Molecular (M4RT Collection Tube) [[id number]] Collected: 05/15/24 1520 Specimen: Nasopharynx Updated: 05/15/24 1634 FLU A PCR Negative FLU B PCR Negative RSV by PCR Negative SARS CoV 2 BY PCR Not Detected Studies Reviewed: No results found. Wound Assessment: Type of Wound/Aetiology: pressure injury wounds, present on admission Severity: Stage 3 fat-layer exposed Location: sacral region and right ischium Measurement: sacral 3cm x 3cm x 0.4cm; right ischium 2cm x 2cm x 0.1cm Undermining: none Tunneling: none Drainage/Exudate/Odor: mild serosanguineous no odor Wound bed: slough Wound Edges: attached Periwound: intact Measureable improvement: new wound encounter Type of Wound/Aetiology: chronic and pressure injury wound, present on admission Severity: Stage 3 fat-layer exposed Location: right lateral calf Measurement: 17cm x 6cm x 0.5cm Undermining: none Tunneling: none Drainage/Exudate/Odor: moderate serous, serosanguineous, and small green/yellow colored no odor Wound bed: slough and pink tissue Wound Edges: attached Periwound: edema and intact Measureable improvement: new wound encounter Type of Wound/Aetiology: pressure injury wound, present on admission Severity: deep tissue injury (DTI) starting to evolve Location: left lateral calf Measurement: 1.5cm x 13cm Undermining: none Tunneling: none Drainage/Exudate/Odor: scant and mild serosanguineous no odor Wound bed: maroon/purple Wound Edges: attached Periwound: edema and intact Measureable improvement: new wound encounter Principal Problem: Wound infection Active Problems: Traumatic ulcer of right lower extremity with fat layer exposed (CMS-HCC) Dermatitis associated with moisture Lymphedema Pressure injury of right calf, stage 3 (CMS-HCC) Hyperkalemia Pressure ulcer of sacral region, stage 3 (CMS-HCC) Pressure injury of deep tissue of left calf Wound Plan Dressing: Right lateral calf wound: Cleanse with soap and water or purple package skin care wipes. After cleansing apply silver alginate to open wound beds, cover with abd pad and secure with kerlix. Repeat daily and prn. please take an updated wound photo daily with each dressing change after cleansing Left calf wound: Cleanse with soap and water or purple package skin care wipes. After cleansing apply adaptic over open wound, cover with abd pad and secure with kerlix. Repeat daily and prn. please take an updated wound photo daily with each dressing change after cleansing Sacrum and right buttock wounds: Cleanse with soap and water or purple package skin care wipes. Utilize sea clens wound cleanser spray to help loosen barrier cream. After cleansing, thinly apply Z guard barrier cream to the wound (and periwound). Repeat twice daily and prn. The Z guard will help protect wound from incontinence/body fluids, DO NOT CAKE ON or vigorously scrub off. please take an updated wound photo daily with dressing change after cleansing Offloading/Skin Care/Edema Management: - continue specialty Isotour bed ERIC/pressure redistribution - turn and reposition minimally every 2 hours - pad and protect bony prominences - moisturize dry skin, do not massage vigorously - elevate bilateral lower extremity/ies and float heel(s) on pillows or offloading true andrzej boots - ordered - elevate upper extremities on pillows Antibiotics: Studies/Testing: reviewed as noted above Medical Management: per primary service Wound care will continue to follow while inpatient, orders written for bedside RN's to complete daily skin assessment and wound care orders daily and/or as written. May discharge from wound care perspective when medically stable as advised by other services. Follow up: In the outpatient wound care clinic with Elidia FRANCISCO as scheduled or within 1-2 weeks of discharge. With other services as advised upon discharge. Thank you for allowing us to participate in the care of this patient. Please feel free to call us with any questions or concerns. GINA Kim 05/19/24 [facility] Sat-Sat 8a-3p [phone] - pager M-F 8a-3p Secure Chat preferred & fastest response time Needs outside these hours please contact the reciprocating department: general surgery, vascular surgery, ortho or podiatry. Thank you! This note was created with the assistance of a speech-recognition program. Although the intention is to generate a document that accurately reflects the content of the visit, no guarantees can be provided that every mistake/misinterpretation has been identified and corrected by editing. GINA Kim 05/19/24 1202 Associated Order(s): IP CONSULT TO INFECTIOUS DISEASES Images from the original note were not included. Infectious Diseases Academic Team - Initial Consult Note - Please contact us via [employer] chat. 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 The patient's wound actually looks very clean and intact. She has had close outpatient follow up just several days ago with impressions similar that her wound appears to be stable and improving with her outpatient regimen. Patient has no evidence of active infection systemically or in her wounds right now. Currently, the patient does not have any indications for empiric ABX. We can hold off on IV ABX and monitor the wounds conservatively. Local wound care while inpatient appreciated. Recommendations: Recommend holding off IV ABX for now Recommend wound care while inpatient. Ideally continue outpatient wound care treatment while inpatient Follow up blood cultures. ID to sign off. Please call back with any further questions. Subjective Reason for consultation / Chief complaint: leg wound culture positive for MRSA and GBS. Unclear which leg wound. No systemic signs of infection. History of Present Illness Donna Mathews is a 63 y.o.-year-old female who was initially admitted on 05/16/2024. 63 y.o. female who has past medical history significant for right lower extremity wounds for past 3 years, multiple sclerosis, chronic urinary incontinence, end-stage renal disease on dialysis every day through left upper extremity fistula, and anemia of chronic disease. ID consulted for a positive MRSA and GBS wound. The patient has been living in [place] from 2012 onwards. She has been having some sore throat and dry cough for a few weeks to months now. During her HD session on Saturday, she experienced some back pain in which she stopped her session. She refused the next session. She presents now with lethargy and hypoxia requiring some supplemental O2. In relation to the wound, the patient was originally scheduled for surgical debridement in Mar 2024, but was canceled since the wound was improving. The patient was last seen in wound care clinic in [place] 2024. She has had this wound on her right leg present for approximately 3 years but only started following wound clinic since February 2024 onwards. Current daily wound care includes: medi honey, copper alginate and PolyMem foam. Patient reports wounds are changed daily by nursing facility. Currently, she denies any symptoms of her leg. Denies any worsening edema, pain, drainage, swelling, etc in either of her legs or in her coccyx wound. Workup showed: White blood count 13, hemoglobin initially 6.4 repeat 7.3 (baseline 7-8), sodium 132, potassium 4.9 repeat 5.4, BUN 68 (baseline 20s). She did not receive any transfusions. Respiratory pathogen panel negative. Chest x-ray unremarkable. X-ray tibia fibula right reveals significant soft tissue swelling overlying the medial malleolus without obvious cortical erosion. Superficial wound culture and blood cultures showed MRSA and streptococcus agalactiae. She did receive IV vancomycin. Patient's management while inpatient has entailed dialysis today, resuming her home treatment. Our consultation addresses :complex antimicrobial therapy counseling and treatment Past Medical History: Past Medical History: Diagnosis Date Anemia Anemia of chronic disease 08/30/2022 Anxiety AV fistula stenosis ([facility]) 04/01/2023 Charcot's arthropathy 03/27/2013 Charcot's joint CHF (congestive heart failure) ([facility]) Chronic indwelling Douglas catheter 09/13/2022 Chronic kidney disease Chronic renal impairment, stage 4 (severe) ([facility]) 08/30/2022 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 Deep vein thrombosis ([facility]) RLE Dermatitis associated with moisture 09/14/2022 Diabetes mellitus type 2, controlled ([facility]) Dialysis patient ([facility]) End stage renal disease ([facility]) 09/05/2022 ESRD (end stage renal disease) ([facility]) 09/13/2022 Family history of MS (multiple sclerosis) 09/13/2022 GERD (gastroesophageal reflux disease) Hyperlipidemia Hypertension Leukocytosis 09/13/2022 Lymphedema Morbid obesity ([facility]) 09/13/2022 MS (multiple sclerosis) ([facility]) 09/13/2022 Neuromuscular dysfunction of bladder Obesity Personal history of DVT (deep vein thrombosis) 09/29/2013 Positive occult stool blood test 04/17/2024 Stroke ([facility]) Tabes dorsalis Thrombocytopenia ([facility]) Traumatic ulcer of left lower extremity with fat layer exposed ([facility]) 09/14/2022 Traumatic ulcer of right lower extremity with fat layer exposed ([facility]) 09/14/2022 Past Surgical History: Past Surgical History: Procedure Laterality Date BARIATRIC SURGERY Catheter Placement N/A 09/07/2022 Performed by Angelique Mckinnon DO at [facility] CARDIAC CATH LABS CREATION ARTERIOVENOUS FISTULA UPPER EXTREMITY BRACHIAL CEPHALIC, EXPLORATION LEFT WRIST WITH REPAIR OF RADIAL ARTERY LEFT Left 10/31/2022 Performed by Braydon Rich MD at [facility] HEMODIALYSIS INPATIENT 05/31/2023 LIPECTOMY AVF Left 02/25/2023 Performed by Krystin Salcedo MD at [facility] Medications: atorvastatin, 80 mg, oral, HS darbepoetin xavier (ARANESP) injection, 100 mcg, subcutaneous, Weekly guaiFENesin, 600 mg, oral, Q12H ANNALISE heparin (porcine), 5,000 Units, subcutaneous, Q8H ANNALISE midodrine, 10 mg, oral, TID sevelamer, 800 mg, oral, TID with meals sodium chloride, 3 mL, intravenous, Q12H ANNALISE [START ON 05/21/2024] sodium zirconium cyclosilicate, 10 g, oral, Once per day on Saturday Social History: Social History Socioeconomic History Marital status: Single Tobacco Use Smoking status: Never Smokeless tobacco: Never Vaping Use Vaping status: Never Used Substance and Sexual Activity Alcohol use: Not Currently Comment: rare Drug use: Never Sexual activity: Defer Social Drivers of Health Financial Resource Strain: Low Risk (05/30/2023) Overall Financial Resource Strain (CARDIA) Difficulty of Paying Living Expenses: Not hard at all Food Insecurity: No Food Insecurity (05/17/2024) Hunger Screening Food Insecurity - Worry: Never True Food Insecurity - Inability: Never True Transportation Needs: No Transportation Needs (05/17/2024) PRAPARE - Transportation Lack of Transportation (Medical): No Lack of Transportation (Non-Medical): No Interpersonal Safety: Not At Risk (05/17/2024) Humiliation, Afraid, Rape, and Kick questionnaire Fear of Current or Ex-Partner: No Emotionally Abused: No Physically Abused: No Sexually Abused: No Housing Instability: Low Risk (05/17/2024) Housing Instability Housing Instability: No Family History: Family History Problem Relation Age of Onset Breast cancer Cousin Colon cancer Maternal cousin Immunization History: Immunization History Administered Date(s) Administered COVID-19, mRNA, LNP-S, PF, 30mcg/0.3mL Dose 03/09/2020, 03/30/2020, 12/28/2020, 09/19/2021 Covid-19, Mrna, Lnp-s, Bivalent, Pf, 30mcg/0.3 ml 01/25/2022 Influenza, Injectable, quadrivalent (PF) 11/09/2016, 08/11/2018, 10/14/2018, 11/03/2018 Pneumococcal Polysaccharide 12/09/2012, 12/22/2017 Allergies: No Known Allergies Review of Systems: General: No fevers or chills. Eyes: No double vision or blurry vision. ENT: Sore Throat Cardiovascular: No chest pain or palpitations. Lung: Cough and sore throat. Abdomen: No nausea, vomiting, diarrhea, or abdominal pain. Genitourinary: No increased urinary frequency, or dysuria. Musculoskeletal: No muscle aches or pains. Hematologic: No bleeding or bruising. Neurologic: No headache, weakness, numbness, or tingling. Objective Physical Examination: BP 113/62 Pulse 89 Temp 36.6 C (97.8 F) (Oral) Resp 16 Ht 167.6 cm (5' 6 ) Wt 131.9 kg (290 lb 12.6 oz) SpO2 98% BMI 46.93 kg/m Temperature Range: Temp: 36.6 C (97.8 F) Temp Av.7 C (98 F) Min: 36.4 C (97.6 F) Max: 36.8 C (98.2 F) General Appearance: Awake, alert, and in no apparent distress. Obese Head: Normocephalic, without obvious abnormality, atraumatic Eyes: Pupils equal, round, reactive, to light and accommodation; extraocular movements intact; sclera anicteric; conjunctivae pink ENT: Oropharynx clear, without erythema, exudate, or thrush. Neck: Supple, without lymphadenopathy. Pulmonary/Chest: Clear to auscultation, without wheezes, rales, or rhonchi Cardiovascular: Regular rate and rhythm without murmurs, rubs, or gallops. Abdomen: Soft, nontender, nondistended. Extremities: No cyanosis, clubbing, edema, no joint effusions. Healing pressure wound left lateral leg, wound on R lateral leg, wound above buttocks. AV fistula present Neurologic: Bulk and tone are normal. No atrophy is noted. Moves extremities. Sensation grossly intact Media Information Media Information Labs: Results from last 7 days Lab Units 05/18/24 0503 05/17/24 0405 05/16/24 1640 WBC X10E9/L 7.3 11.9* 13.0* HEMOGLOBIN g/dL 7.9* 7.6* 7.3* HEMATOCRIT % 22.8* 22.5* 21.9* MCV fL 98 98 99 PLATELETS X10E9/L 161 ESTIMATE OF PLATELETS, NORMAL 154 NEUTROS ABS X10E9/L 4.6 8.8* 11.2* LYMPHS ABS AUTO X10E9/L 1.6 1.6 0.8* MONOS ABS AUTO X10E9/L 0.7 1.1* 0.7 EOS ABS AUTO X10E9/L 0.3 0.4 0.3 BASOS ABS AUTO X10E9/L 0.1 0.1 0.0 Results from last 7 days Lab Units 05/18/24 0503 05/17/24 0823 05/17/24 0405 05/16/24 1530 05/16/24 0500 05/15/24 1552 SODIUM mmol/L 134 -- 134 132* 133* 131* POTASSIUM mmol/L 5.2* -- 5.1* 5.4* 4.9 5.0 CHLORIDE mmol/L 96* -- 95* 94* 96* 93* CO2 mmol/L 23 -- 25 24 25 28 BUN mg/dL 76* -- 70* 67* 68* 62* CREATININE mg/dL 7.57* -- 6.97* 6.33* 6.10* 6.27* BEDSIDE GLUCOSE mg/dL -- 83 -- -- -- -- GLUCOSE mg/dL 89 -- 76 89 89 111* CALCIUM mg/dL 8.6 -- 8.2* 7.8* 7.4* 7.8* ALK PHOS U/L -- -- -- 66 56 65 ALT U/L -- -- -- 22 21 24 AST U/L -- -- -- 25 21 26 Results from last 7 days Lab Units 05/17/24 0948 PROCALCITONIN ng/mL 0.70* Invalid input(s): GLUCOSEU , BILIRUBINU Imaging Studies: No results found. I have personally reviewed these studies. Cultures: Microbiology Results Procedure Component Value Units Date/Time Blood culture [[id number]] Collected: 05/15/24 161 Specimen: Blood Updated: 05/17/24 2318 Specimen Notes right wrist Culture NO GROWTH 2 DAYS Wound culture superficial includes gram stain [[id number]] (Abnormal) (Susceptibility) Collected: 05/15/24 1606 Specimen: Wound Swab Updated: 05/18/24 1342 Gram Stain Result 0 to 1 WHITE BLOOD CELLS/LPF 10 to 24 SQUAMOUS EPITHELIAL CELLS/LPF MODERATE GRAM POSITIVE COCCI IN PAIRS AND CHAINS FEW GRAM POSITIVE COCCI IN CLUSTERS Culture MANY STAPHYLOCOCCUS AUREUS METHICILLIN RESISTANT MANY STREPTOCOCCUS AGALACTIAE (GROUP B) RARE STAPHYLOCOCCUS AUREUS VARIANT : SUSCEPTIBILITY TESTING IN PROGRESS ALONG WITH RARE MIXED GRAM NEGATIVE ORGANISMS : NO PSEUDOMONAS AERUGINOSA ISOLATED ALONG WITH RARE NORMAL SKIN MONI Susceptibility Staphylococcus Aureus EVAN METHOD (Preliminary) Cefazolin RESISTANT(DEDUCED) Clindamycin 0.25 Susceptible Daptomycin 0.25 Susceptible Doxycycline 2 Susceptible [1] Oxacillin >=4 Resistant TRIMETH/SULFAMETHOXAZOLE <=0.5/9.5 Susceptible Vancomycin <=0.5 Susceptible [1] CLIA ID [id number] Blood culture [[id number]] Collected: 05/15/24 1600 Specimen: Blood Updated: 05/17/24 2318 Specimen Notes right hand Culture NO GROWTH 2 DAYS Urine culture [[id number]] Collected: 05/15/24 1544 Specimen: Urine from [facility] Updated: 05/17/24 0923 Specimen Notes URINE RECEIVED WITHOUT PRESERVATIVE Culture CULTURE IN PROGRESS SARS/FLU A+B/RSV by NAAT/Molecular (M4RT Collection Tube) [[id number]] Collected: 05/15/24 1520 Specimen: Nasopharynx Updated: 05/15/24 1634 FLU A PCR Negative FLU B PCR Negative RSV by PCR Negative SARS CoV 2 BY PCR Not Detected Thank you for allowing us to participate in the care of this patient. - Rigoberto Le MD 05/18/24 7:52 PM [facility] Infectious Diseases Please contact us via Interactive [employer] chat Cosigned by Gladis Humphrey MD at 05/18/2024 9:37 PM EDT Associated attestation - Gladis Humphrey MD - 05/18/2024 9:37 PM EDT I performed a history and physical examination of the patient Donna Mathews, I independently reviewed the laboratory work and imaging as well as other studies mentioned in the above note; I have discussed the management with the Infectious Diseases fellow, Rigoberto Le MD I have reviewed the above note, I agree with the findings and plan of care with the following additions: Agree. ID will sign off - thanks so much for the consultation. Thank you for allowing us to participate in the care of this patient. Gladis Humphrey MD [facility] Infectious Diseases Personal Pager: [phone] Associated Order(s): IP CONSULT TO NEPHROLOGY Images from the original note were not included. NEPHROLOGY ATTENDING ADDENDUM I have personally seen and examined the patient. I have reviewed the note authored by the AGRICULTURE INSTRUCTOR and agree with the assessment and plan. I have also reviewed all the orders that have been placed following my discussion with the AGRICULTURE INSTRUCTOR. My own assessment and plan are as follows: 63 year old lady with end-stage renal disease dialyzing at [place] presented to an outside hospital ER with complaints of weakness, lethargy and altered mental status. She apparently missed her last HD session and was transferred over to [facility] for possible dialysis. Chronic hypotension on scheduled ProAmatine Lokelma to address hyperkalemia Blood cultures are pending Plan for dialysis tomorrow Please contact me at [phone] (Office) or [phone] (Answering service) with any questions. Please feel free to contact me through [employer] Secure chat during the daytime hours, if no response after 5 minutes then call the answering service. Amado Proctor MD [facility] This note was created with the assistance of a speech-recognition program. Although the intention is to generate a document that actually reflects the content of the visit, no guarantees can be provided that every mistake has been identified and corrected by editing. NEPHROLOGY CONSULT NOTE Date of Admission: 05/16/2024 9:45 PM Reason for Consult: End-stage renal disease Referring Physician: PCP: TODD GEORGE MD History of Present Illness Donna Mathews is a 63 y.o. female with a history of lower extremity wounds, multiple sclerosis, and end-stage renal disease who resides at [facility] since 2012. She runs hemodialysis there on a daily basis. She had not been feeling well since early in the week with a sore throat, cough and had missed a session or 2 of hemodialysis due to this not feeling well. She had been noted to be more lethargic and hypoxic requiring supplemental oxygen and she was sent to [facility]. She was anemic and hyperkalemic at [place] and she was sent to [facility] for hemodialysis. Her chest x-ray was unremarkable. She did receive some IV vancomycin before transport. Again she has chronic wounds and follows wound care for right lower extremity and left lower extremity wounds. Today she awakens to voice. She states she is feeling little better. Denies any shortness breath or chest pain. She does not remember her through her last hemodialysis session although she is not the best historian. She does have a left upper arm fistula with a good thrill and bruit. She states there has been no issues with hemodialysis. On exam she has some degree of edema. Difficult to health insurance specialist based on her body habitus. Lungs are clear diminished. Problem List including Medical and Surgical History End-stage renal disease on hemodialysis on a daily basis at [facility] of left upper arm AV fistula Bilateral lower extremity chronic wounds managed by wound care Right buttock and coccyx pressure ulcers Hyperkalemia Anemia of chronic disease History of DVT Diabetes mellitus type 2 Hypertension Hyperlipidemia GERD Multiple sclerosis Lymphedema Morbid obesity History of stroke Thrombocytopenia Chronic indwelling catheter Review of Systems Constitutional: Negative for fever, chills and fatigue HENT: Negative Eyes: Negative for discharge Respiratory: Negative for cough and positive for shortness of breath. Cardiovascular: Negative for chest pain and palpitations. Gastrointestinal: Negative for nausea, vomiting, abdominal pain and diarrhea. Endocrine: Negative for fatigue or unexpected weight gain or weight loss Genitourinary: Negative for dysuria, urgency, frequency, hematuria, flank pain, no decreased urine volume or difficulty urinating. Musculoskeletal: Negative for myalgias, joint swelling and arthritis. Negative for lower extremity edema Skin: Negative for rash. Allergy/immunology: Negative for runny nose or redness of eyes Neurological: Negative for lightheadedness. Hematological: Negative for any recent bleeding or transfusion Psychiatric/Behavioral: Negative Social History: Social History Socioeconomic History Marital status: Single Spouse name: Not on file Number of children: Not on file Years of education: Not on file Highest education level: Not on file Occupational History Not on file Tobacco Use Smoking status: Never Smokeless tobacco: Never Vaping Use Vaping status: Never Used Substance and Sexual Activity Alcohol use: Not Currently Comment: rare Drug use: Never Sexual activity: Defer Other Topics Concern Not on file Social History Narrative Not on file Social Drivers of Health Financial Resource Strain: Low Risk (05/30/2023) Overall Financial Resource Strain (CARDIA) Difficulty of Paying Living Expenses: Not hard at all Food Insecurity: No Food Insecurity (05/15/2024) Hunger Screening Food Insecurity - Worry: Never True Food Insecurity - Inability: Never True Transportation Needs: No Transportation Needs (05/30/2023) PRAPARE - Transportation Lack of Transportation (Medical): No Lack of Transportation (Non-Medical): No Physical Activity: Not on file Stress: Not on file Social Connections: Not on file Interpersonal Safety: Not At Risk (05/30/2023) Humiliation, Afraid, Rape, and Kick questionnaire Fear of Current or Ex-Partner: No Emotionally Abused: No Physically Abused: No Sexually Abused: No Housing Instability: Low Risk (05/30/2023) Housing Instability Housing Instability: No Family History: Family History Problem Relation Age of Onset Breast cancer Cousin Colon cancer Maternal cousin Allergies: No Known Allergies Home Meds: Medications Prior to Admission Medication Sig Dispense Refill Last Dose/Taking acetaminophen (TYLENOL) 325 mg tablet Take 2 tablets (650 mg total) by mouth every 8 (eight) hours Indications: pain. Past Week atorvastatin (LIPITOR) 80 mg tablet Take 1 tablet (80 mg total) by mouth once daily at bedtime. Past Week azelastine (ASTELIN) 137 mcg (0.1 %) nasal spray Administer 2 sprays into each nostril once daily at bedtime Indications: seasonal runny nose. Use in each nostril as directed Past Week B complex-vitamin C-folic acid (NEPHROCAP) 1 mg capsule Take 1 capsule by mouth in the morning. Give one tablet by mouth in the morning for ESRD. Past Week biotin 1 mg tablet Take 1 tablet (1 mg total) by mouth in the morning. Past Week calcium carbonate (OS-NAIMA) 500 mg elemental (1,250 mg) tablet Take 2 tablets (1,000 mg total) by mouth in the morning. Indications: low amount of calcium in the blood. Past Week carboxymethylcellulose (REFRESH TEARS) 1 % ophthalmic solution Administer 1 drop to both eyes in the morning. Indications: dry eye. Past Week carvediloL (COREG) 6.25 mg tablet Take 0.5 tablets (3.125 mg total) by mouth in the morning. Past Week cholecalciferol (VITAMIN D3) 1,000 units tablet Take 1 tablet (1,000 Units total) by mouth in the morning. (Patient taking differently: Take 4 tablets (4,000 Units total) by mouth in the morning.) 30 tablet 3 Past Week ipratropium-albuteroL (DUONEB) 0.5 mg-3 mg(2.5 mg base)/3 mL nebulizer Inhale 3 mL by nebulization every 6 (six) hours as needed for wheezing or shortness of breath. Past Week lactulose (CHRONULAC) 10 gram/15 mL solution Take 45 mL (30 g total) by mouth daily as needed (constipation). Past Week LUTEIN ORAL Take 1 tablet by mouth in the morning. Past Week menthol (BIOFREEZE, MENTHOL,) 4 % gel Apply 1 Application topically every 8 (eight) hours as needed Indications: pain associated with arthritis, sprains and strains. Past Week midodrine (PROAMATINE) 10 mg tablet Take 1 tablet (10 mg total) by mouth 3 (three) times a day. Past Week midodrine (PROAMATINE) 5 mg tablet Take 1 tablet (5 mg total) by mouth daily as needed (if SBP < 100; do not exceed 40 mg/day). Past Week modafiniL (PROVIGIL) 100 mg tablet Take 1 tablet (100 mg total) by mouth in the morning. For MS. Past Week multivitamin with minerals tablet Take 1 tablet by mouth in the morning. Give one tablet by mouth in the afternoon for preventive . Past Week nystatin (MYCOSTATIN) powder Apply 1 Application topically as needed (As needed). Apply to under breast and folds topically as needed for dermatitis Past Week OXcarbazepine (TRILEPTAL) 300 mg tablet Take 1 tablet (300 mg total) by mouth in the morning and 1 tablet (300 mg total) before bedtime. For MS/neuropathy. Past Week oxycodone HCl (OXYCODONE ORAL) Take 5 mg by mouth every 6 (six) hours as needed (every 6 hours). Give one tablet as by mouth every 6 hours as needed for moderate to severe pain Max Daily Amount: 20 mg Past Week pantoprazole (PROTONIX) 40 mg EC tablet Take 1 tablet (40 mg total) by mouth in the morning. Indications: gastroesophageal reflux disease. Past Week polyethylene glycol (GLYCOLAX) 17 gram packet Take 17 g by mouth in the morning. Indications: constipation. In the afternoon . Past Week pregabalin (LYRICA) 75 mg capsule Take 1 capsule (75 mg total) by mouth once daily at bedtime. Give 1 capsule by mouth at bed time for chronic pain Past Week sennosides-docusate sodium (SENOKOT-S) 8.6-50 mg Take 1 tablet by mouth every 12 (twelve) hours as needed for constipation. Past Week sertraline (ZOLOFT) 25 mg tablet Take 2 tablets (50 mg total) by mouth in the morning. Past Week sevelamer (RENVELA) 800 mg tablet Take 1 tablet (800 mg total) by mouth in the morning and 1 tablet (800 mg total) at noon and 1 tablet (800 mg total) in the evening. Take with meals. Past Week simethicone (MYLICON) 80 mg chewable tablet Chew 1 tablet (80 mg total) and swallow every 6 (six) hours as needed (indigestion). Past Week sodium zirconium cyclosilicate (LOKELMA) 10 gram packet Take 10 g by mouth 2 (two) times a week. Saturday and Saturday Past Week trazodone HCl (TRAZODONE ORAL) Take 12.5 mg by mouth nightly. (Patient taking differently: Take 25 mg by mouth nightly Indications: depression, difficulty sleeping.) Taking Differently bisacodyL (DULCOLAX) 5 mg EC tablet Take 1 tablet (5 mg total) by mouth daily as needed for constipation. (Patient not taking: Reported on 04/17/2024) 4 tablet 0 Unknown nut.tx.imp.renal fxn,lac-reduc (NEPRO CARB STEADY) 0.08 gram-1.8 kcal/mL liquid Take 237 fluid ounces by mouth daily after dinner. (Patient not taking: Reported on 05/13/2024) polyethylene glycol (GoLYTELY) 236-22.74-6.74 -5.86 gram solution Starting at noon on day prior to procedure, drink 8 ounces every 30 minutes until all gone or stools are clear. May add flavor packet. (Patient not taking: Reported on 05/13/2024) 4000 mL 0 [facility] RX 1-60-300 mg-mg-mcg tablet (Patient not taking: Reported on 04/17/2024) Inpatient Meds: atorvastatin, 80 mg, oral, HS carvediloL, 3.125 mg, oral, Daily guaiFENesin, 600 mg, oral, Q12H ANNALISE heparin (porcine), 5,000 Units, subcutaneous, Q8H ANNALISE ipratropium-albuteroL, 3 mL, nebulization, Q6H sevelamer, 800 mg, oral, TID with meals sodium chloride, 3 mL, intravenous, Q12H ANNALISE sodium zirconium cyclosilicate, 10 g, oral, Daily Inpatient Infusion Meds: dextrose 5 % in water, 100 mL/hr sodium chloride 0.9 %, 20 mL/hr Physical Exam: Admission Weight: Vitals: Vitals: 05/16/24 2156 05/17/24 0047 05/17/24 0457 05/17/24 0617 BP: (!) 130/114 93/58 95/58 Pulse: 82 85 78 73 Resp: 18 18 18 Temp: 36.8 C (98.2 F) 36.6 C (97.8 F) TempSrc: Oral Oral SpO2: 99% 92% 98% 100% INTAKE/OUTPUT: No intake or output data in the 24 hours ending 05/17/24 0646 General Appearance: alert, cooperative 63-year-old female, and in no distress Eyes: conjunctivae/corneas clear. Neck: no adenopathy, no carotid bruit, no JVD Head atraumatic normocephalic Mucous membranes are moist Respiratory: Lungs clear diminished to auscultation bilaterally. Cardiovascular: regular rate and rhythm. No murmur Gastrointestinal: Obese, Rounded, non-tender; bowel sounds normal; no masses, no organomegaly no CVA tenderness Musculoskeletal: extremities normal, atraumatic, no cyanosis , 1+ edema Skin: Skin color, texture, turgor normal. No rashes or lesions Neurologic: can move all extremities. Alert awake oriented x3 Psychiatry: Appropriate mode. No depression or anxiety Labs: Results from last 7 days Lab Units 05/17/24 0405 05/16/24 1530 05/16/24 0500 05/15/24 1552 SODIUM mmol/L 134 132* 133* 131* POTASSIUM mmol/L 5.1* 5.4* 4.9 5.0 CHLORIDE mmol/L 95* 94* 96* 93* CO2 mmol/L BUN mg/dL 70* 67* 68* 62* CREATININE mg/dL 6.97* 6.33* 6.10* 6.27* CALCIUM mg/dL 8.2* 7.8* 7.4* 7.8* MAGNESIUM mg/dL 1.8 -- -- -- PHOSPHORUS mg/dL 4.6 -- -- -- Results from last 7 days Lab Units 05/16/24 1640 05/16/24 0500 05/15/24 1552 WBC X10E9/L 13.0* 12.1* 14.7* HEMOGLOBIN g/dL 7.3* 6.4* 7.6* HEMATOCRIT % 21.9* 18.8* 22.5* PLATELETS X10E9/L 154 140* 153 Results from last 7 days Lab Units 05/17/24 0405 MAGNESIUM mg/dL 1.8 Lab Results Component Value Date PTH 116 (H) 09/18/2022 CALCIUM 8.2 (L) 05/17/2024 Lab Results Component Value Date IRON 84 09/14/2022 TIBC 197 (L) 09/14/2022 FERRITIN 666 (H) 09/14/2022 IImpression End-stage renal disease on hemodialysis on a daily basis at nursing facility by way of left upper arm AV fistula. Bilateral lower extremity chronic wounds managed by wound care Hyperkalemia: Correct with Lokelma Anemia of chronic disease : Rule out iron deficiency. Transfuse for hemoglobin less than 7 History of DVT Diabetes mellitus type 2 : Management per primary service Hypertension: Blood pressure appears to be controlled at this point Recommendations No urgency for hemodialysis today Continue hemodialysis on a Saturday basis for now Intake and output Daily weights Check iron stores B12 and folate Start Aranesp Give Lokelma 10 g daily Will discuss with attending and further orders to follow Raoul Bartlett CNP [facility] Thank you for your consultation and allowing us to participate in the care of Donna Mathews and please do not hesitate to call us with any questions at: Office: [phone] Office Answering Service: [phone] This note was created with the assistance of a speech-recognition program. Although the intention is to generate a document that actually reflects the content of the visit, no guarantees can be provided that every mistake has been identified and corrected by editing. GINA Roman 05/17/24 0656 GINA Roman 05/17/24 1042 documented in this encounter [facility] 05-19-2024 Plan of care note Problem: Pain Goal: Patient goal is pain score less than 4, able to rest, and participant in treatment plan as appropriate Description: INTERVENTIONS: 1. Encourage patient or legal account manager sales representative to report early pain and ask for pain medicine when needed 2. Assess pain using appropriate pain scale and include the scale used when documenting 3. Administer analgesics based on type and severity of pain and evaluate response within appropriate time frame 4. Implement non-pharmacological measures as appropriate and evaluate response 5. Consider cultural and social influences on pain and pain management 6. Notify LIP if interventions ineffective or patient reports new pain 7. Monitor vital signs including pulse ox, end-tidal CO2 based on pain intervention 8. Reassess pain per policy 9. Teach patient or legal account manager sales representative interventions for comforting Outcome: Progressing Note: Evaluation of progress towards goal: Patient reported improvement of pain symptoms with one time dose of oral pain medication. Problem: Safety Goal: Patient will be injury free during hospitalization Description: INTERVENTIONS: 1. Assess patient's risk for falls and implement fall prevention plan of care per policy 2. Provide and maintain a safe environment 3. Proper use of double Identifiers 4. Medication administration using the 5 rights 5. Hand hygiene 6. Specimens are labeled at the bedside 7. Instruct patient/ patient account manager sales representative about use of safety devices 8. Include patient/ patient account manager sales representative in decisions related to safety Outcome: Progressing Note: Evaluation of progress towards goal: Patient remains free from injury with call light in reach. Problem: Infection Goal: Absence of infection during hospitalization Description: INTERVENTIONS 1. Assess and monitor for signs and symptoms of infection. 2. Monitor lab/diagnostic results. 3. Monitor all insertion sites i.e., indwelling lines, tubes and drains. 4. Monitor endotracheal (as able) and nasal secretions for changes in amount and color. 5. Administer medications as ordered. 6. Instruct and encourage patient and family to use good hand hygiene technique. 7. Identify and instruct patient/patient account manager sales representative in use of appropriate isolation precautions for identified infection/symptoms. 8. Provide and discuss with patient/patient account manager sales representative on educational MDRO sheet. 9. Encourage and monitor nutritional status daily and consult concrete buster operator if indicated. 10. Implement neutropenic guidelines as needed. Outcome: Progressing Note: Evaluation of progress towards goal: Patient is afebrile. [facility] 05-18-2024 Consult note Associated Order (s): IP CONSULT TO INFECTIOUS DISEASES Images from the original note were not included. Infectious Diseases Academic Team - Initial Consult Note - Please contact us via [employer] chat. After hours, call [phone] Patient name: Donna Mathews Patient Today's Date and Time: 05/18/2024, 7:52 PM Admission Date: 05/16/2024 Impression: MRSA and GBS Colonization of Right Lower Extremity Chronic Wound Without Evidence of Active Infection Consulted for presence of MRSA and GBS growth on a superficial wound culture of a chronic lower extremity wound. The patient's wound actually looks very clean and intact. She has had close outpatient follow up just several days ago with impressions similar that her wound appears to be stable and improving with her outpatient regimen. Patient has no evidence of active infection systemically or in her wounds right now. Currently, the patient does not have any indications for empiric ABX. We can hold off on IV ABX and monitor the wounds conservatively. Local wound care while inpatient appreciated. Recommendations: Recommend holding off IV ABX for now Recommend wound care while inpatient. Ideally continue outpatient wound care treatment while inpatient Follow up blood cultures. ID to sign off. Please call back with any further questions. Subjective Reason for consultation / Chief complaint: leg wound culture positive for MRSA and GBS. Unclear which leg wound. No systemic signs of infection. History of Present Illness Donna Mathews is a 63 y.o.-year-old female who was initially admitted on 05/16/2024. 63 y.o. female who has past medical history significant for right lower extremity wounds for past 3 years, multiple sclerosis, chronic urinary incontinence, end-stage renal disease on dialysis every day through left upper extremity fistula, and anemia of chronic disease. ID consulted for a positive MRSA and GBS wound. The patient has been living in [place] from 2012 onwards. She has been having some sore throat and dry cough for a few weeks to months now. During her HD session on Saturday, she experienced some back pain in which she stopped her session. She refused the next session. She presents now with lethargy and hypoxia requiring some supplemental O2. In relation to the wound, the patient was originally scheduled for surgical debridement in Mar 2024, but was canceled since the wound was improving. The patient was last seen in wound care clinic in [place] 2024. She has had this wound on her right leg present for approximately 3 years but only started following wound clinic since February 2024 onwards. Current daily wound care includes: medi honey, copper alginate and PolyMem foam. Patient reports wounds are changed daily by nursing facility. Currently, she denies any symptoms of her leg. Denies any worsening edema, pain, drainage, swelling, etc in either of her legs or in her coccyx wound. Workup showed: White blood count 13, hemoglobin initially 6.4 repeat 7.3 (baseline 7-8), sodium 132, potassium 4.9 repeat 5.4, BUN 68 (baseline 20s). She did not receive any transfusions. Respiratory pathogen panel negative. Chest x-ray unremarkable. X-ray tibia fibula right reveals significant soft tissue swelling overlying the medial malleolus without obvious cortical erosion. Superficial wound culture and blood cultures showed MRSA and streptococcus agalactiae. She did receive IV vancomycin. Patient's management while inpatient has entailed dialysis today, resuming her home treatment. Our consultation addresses :complex antimicrobial therapy counseling and treatment Past Medical History: Past Medical History: Diagnosis Date Anemia Anemia of chronic disease 08/30/2022 Anxiety AV fistula stenosis ([facility]) 04/01/2023 Charcot's arthropathy 03/27/2013 Charcot's joint CHF (congestive heart failure) ([facility]) Chronic indwelling Douglas catheter 09/13/2022 Chronic kidney disease Chronic renal impairment, stage 4 (severe) ([facility]) 08/30/2022 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 Deep vein thrombosis ([facility]) RLE Dermatitis associated with moisture 09/14/2022 Diabetes mellitus type 2, controlled ([facility]) Dialysis patient ([facility]) End stage renal disease ([facility]) 09/05/2022 ESRD (end stage renal disease) ([facility]) 09/13/2022 Family history of MS (multiple sclerosis) 09/13/2022 GERD (gastroesophageal reflux disease) Hyperlipidemia Hypertension Leukocytosis 09/13/2022 Lymphedema Morbid obesity ([facility]) 09/13/2022 MS (multiple sclerosis) ([facility]) 09/13/2022 Neuromuscular dysfunction of bladder Obesity Personal history of DVT (deep vein thrombosis) 09/29/2013 Positive occult stool blood test 04/17/2024 Stroke ([facility]) Tabes dorsalis Thrombocytopenia ([facility]) Traumatic ulcer of left lower extremity with fat layer exposed ([facility]) 09/14/2022 Traumatic ulcer of right lower extremity with fat layer exposed ([facility]) 09/14/2022 Past Surgical History: Past Surgical History: Procedure Laterality Date BARIATRIC SURGERY Catheter Placement N/A 09/07/2022 Performed by Angelique Mckinnon DO at [facility] CARDIAC CATH LABS CREATION ARTERIOVENOUS FISTULA UPPER EXTREMITY BRACHIAL CEPHALIC, EXPLORATION LEFT WRIST WITH REPAIR OF RADIAL ARTERY LEFT Left 10/31/2022 Performed by Braydon Rich MD at [facility] HEMODIALYSIS INPATIENT 05/31/2023 LIPECTOMY AVF Left 02/25/2023 Performed by Krystin Salcedo MD at [facility] Medications: atorvastatin, 80 mg, oral, HS darbepoetin xavier (ARANESP) injection, 100 mcg, subcutaneous, Weekly guaiFENesin, 600 mg, oral, Q12H ANNALISE heparin (porcine), 5,000 Units, subcutaneous, Q8H ANNALISE midodrine, 10 mg, oral, TID sevelamer, 800 mg, oral, TID with meals sodium chloride, 3 mL, intravenous, Q12H ANNALISE [START ON 05/21/2024] sodium zirconium cyclosilicate, 10 g, oral, Once per day on Saturday Social History: Social History Socioeconomic History Marital status: Single Tobacco Use Smoking status: Never Smokeless tobacco: Never Vaping Use Vaping status: Never Used Substance and Sexual Activity Alcohol use: Not Currently Comment: rare Drug use: Never Sexual activity: Defer Social Drivers of Health Financial Resource Strain: Low Risk (05/30/2023) Overall Financial Resource Strain (CARDIA) Difficulty of Paying Living Expenses: Not hard at all Food Insecurity: No Food Insecurity (05/17/2024) Hunger Screening Food Insecurity - Worry: Never True Food Insecurity - Inability: Never True Transportation Needs: No Transportation Needs (05/17/2024) PRAPARE - Transportation Lack of Transportation (Medical): No Lack of Transportation (Non-Medical): No Interpersonal Safety: Not At Risk (05/17/2024) Humiliation, Afraid, Rape, and Kick questionnaire Fear of Current or Ex-Partner: No Emotionally Abused: No Physically Abused: No Sexually Abused: No Housing Instability: Low Risk (05/17/2024) Housing Instability Housing Instability: No Family History: Family History Problem Relation Age of Onset Breast cancer Cousin Colon cancer Maternal cousin Immunization History: Immunization History Administered Date(s) Administered COVID-19, mRNA, LNP-S, PF, 30mcg/0.3mL Dose 03/09/2020, 03/30/2020, 12/28/2020, 09/19/2021 Covid-19, Mrna, Lnp-s, Bivalent, Pf, 30mcg/0.3 ml 01/25/2022 Influenza, Injectable, quadrivalent (PF) 11/09/2016, 08/11/2018, 10/14/2018, 11/03/2018 Pneumococcal Polysaccharide 12/09/2012, 12/22/2017 Allergies: No Known Allergies Review of Systems: General: No fevers or chills. Eyes: No double vision or blurry vision. ENT: Sore Throat Cardiovascular: No chest pain or palpitations. Lung: Cough and sore throat. Abdomen: No nausea, vomiting, diarrhea, or abdominal pain. Genitourinary: No increased urinary frequency, or dysuria. Musculoskeletal: No muscle aches or pains. Hematologic: No bleeding or bruising. Neurologic: No headache, weakness, numbness, or tingling. Objective Physical Examination: BP 113/62 Pulse 89 Temp 36.6 C (97.8 F) (Oral) Resp 16 Ht 167.6 cm (5' 6 ) Wt 131.9 kg (290 lb 12.6 oz) SpO2 98% BMI 46.93 kg/m Temperature Range: Temp: 36.6 C (97.8 F) Temp Av.7 C (98 F) Min: 36.4 C (97.6 F) Max: 36.8 C (98.2 F) General Appearance: Awake, alert, and in no apparent distress. Obese Head: Normocephalic, without obvious abnormality, atraumatic Eyes: Pupils equal, round, reactive, to light and accommodation; extraocular movements intact; sclera anicteric; conjunctivae pink ENT: Oropharynx clear, without erythema, exudate, or thrush. Neck: Supple, without lymphadenopathy. Pulmonary/Chest: Clear to auscultation, without wheezes, rales, or rhonchi Cardiovascular: Regular rate and rhythm without murmurs, rubs, or gallops. Abdomen: Soft, nontender, nondistended. Extremities: No cyanosis, clubbing, edema, no joint effusions. Healing pressure wound left lateral leg, wound on R lateral leg, wound above buttocks. AV fistula present Neurologic: Bulk and tone are normal. No atrophy is noted. Moves extremities. Sensation grossly intact Media Information Media Information Labs: Results from last 7 days Lab Units 05/18/24 0503 05/17/24 0405 05/16/24 1640 WBC X10E9/L 7.3 11.9* 13.0* HEMOGLOBIN g/dL 7.9* 7.6* 7.3* HEMATOCRIT % 22.8* 22.5* 21.9* MCV fL 98 98 99 PLATELETS X10E9/L 161 ESTIMATE OF PLATELETS, NORMAL 154 NEUTROS ABS X10E9/L 4.6 8.8* 11.2* LYMPHS ABS AUTO X10E9/L 1.6 1.6 0.8* MONOS ABS AUTO X10E9/L 0.7 1.1* 0.7 EOS ABS AUTO X10E9/L 0.3 0.4 0.3 BASOS ABS AUTO X10E9/L 0.1 0.1 0.0 Results from last 7 days Lab Units 05/18/24 0503 05/17/24 0823 05/17/24 0405 05/16/24 1530 05/16/24 0500 05/15/24 1552 SODIUM mmol/L 134 -- 134 132* 133* 131* POTASSIUM mmol/L 5.2* -- 5.1* 5.4* 4.9 5.0 CHLORIDE mmol/L 96* -- 95* 94* 96* 93* CO2 mmol/L 23 -- 25 24 25 28 BUN mg/dL 76* -- 70* 67* 68* 62* CREATININE mg/dL 7.57* -- 6.97* 6.33* 6.10* 6.27* BEDSIDE GLUCOSE mg/dL -- 83 -- -- -- -- GLUCOSE mg/dL 89 -- 76 89 89 111* CALCIUM mg/dL 8.6 -- 8.2* 7.8* 7.4* 7.8* ALK PHOS U/L -- -- -- 66 56 65 ALT U/L -- -- -- 22 21 24 AST U/L -- -- -- 25 21 26 Results from last 7 days Lab Units 05/17/24 0948 PROCALCITONIN ng/mL 0.70* Invalid input(s): GLUCOSEU , BILIRUBINU Imaging Studies: No results found. I have personally reviewed these studies. Cultures: Microbiology Results Procedure Component Value Units Date/Time Blood culture [[id number]] Collected: 05/15/24 1613 Specimen: Blood Updated: 05/17/24 2318 Specimen Notes right wrist Culture NO GROWTH 2 DAYS Wound culture superficial includes gram stain [[id number]] (Abnormal) (Susceptibility) Collected: 05/15/24 1606 Specimen: Wound Swab Updated: 05/18/24 1342 Gram Stain Result 0 to 1 WHITE BLOOD CELLS/LPF 10 to 24 SQUAMOUS EPITHELIAL CELLS/LPF MODERATE GRAM POSITIVE COCCI IN PAIRS AND CHAINS FEW GRAM POSITIVE COCCI IN CLUSTERS Culture MANY STAPHYLOCOCCUS AUREUS METHICILLIN RESISTANT MANY STREPTOCOCCUS AGALACTIAE (GROUP B) RARE STAPHYLOCOCCUS AUREUS VARIANT : SUSCEPTIBILITY TESTING IN PROGRESS ALONG WITH RARE MIXED GRAM NEGATIVE ORGANISMS : NO PSEUDOMONAS AERUGINOSA ISOLATED ALONG WITH RARE NORMAL SKIN MONI Susceptibility Staphylococcus Aureus EVAN METHOD (Preliminary) Cefazolin RESISTANT(DEDUCED) Clindamycin 0.25 Susceptible Daptomycin 0.25 Susceptible Doxycycline 2 Susceptible [1] Oxacillin >=4 Resistant TRIMETH/SULFAMETHOXAZOLE <=0.5/9.5 Susceptible Vancomycin <=0.5 Susceptible [1] CLIA ID [id number] Blood culture [[id number]] Collected: 05/15/24 1600 Specimen: Blood Updated: 05/17/24 2318 Specimen Notes right hand Culture NO GROWTH 2 DAYS Urine culture [[id number]] Collected: 05/15/24 1544 Specimen: Urine from [facility] Updated: 05/17/24 0923 Specimen Notes URINE RECEIVED WITHOUT PRESERVATIVE Culture CULTURE IN PROGRESS SARS/FLU A+B/RSV by NAAT/Molecular (M4RT Collection Tube) [[id number]] Collected: 05/15/24 1520 Specimen: Nasopharynx Updated: 05/15/24 1634 FLU A PCR Negative FLU B PCR Negative RSV by PCR Negative SARS CoV 2 BY PCR Not Detected Thank you for allowing us to participate in the care of this patient. - Rigoberto Le MD 05/18/24 7:52 PM [facility] Infectious Diseases Please contact us via [employer] chat Cosigned by Gladis Humphrey MD at 05/18/2024 9:37 PM EDT Associated attestation - Gladis Humphrey MD - 05/18/2024 9:37 PM EDT I performed a history and physical examination of the patient Donna Nelly Mathews, I independently reviewed the laboratory work and imaging as well as other studies mentioned in the above note; I have discussed the management with the Infectious Diseases fellow, Rigoberto Le MD I have reviewed the above note, I agree with the findings and plan of care with the following additions: Agree. ID will sign off - thanks so much for the consultation. Thank you for allowing us to participate in the care of this patient. Gladis Humphrey MD [facility] Infectious Diseases Personal Pager: [phone] [facility] Work Phone: 05-18-2024 Plan of care note Problem: Pain Goal: Patient goal is pain score less than 4, able to rest, and participant in treatment plan as appropriate Description: INTERVENTIONS: 1. Encourage patient or legal account manager sales representative to report early pain and ask for pain medicine when needed 2. Assess pain using appropriate pain scale and include the scale used when documenting 3. Administer analgesics based on type and severity of pain and evaluate response within appropriate time frame 4. Implement non-pharmacological measures as appropriate and evaluate response 5. Consider cultural and social influences on pain and pain management 6. Notify LIP if interventions ineffective or patient reports new pain 7. Monitor vital signs including pulse ox, end-tidal CO2 based on pain intervention 8. Reassess pain per policy 9. Teach patient or legal account manager sales representative interventions for comforting Outcome: Progressing Note: Evaluation of progress towards goal: Patient denies pain this shift Problem: Safety Goal: Patient will be injury free during hospitalization Description: INTERVENTIONS: 1. Assess patient's risk for falls and implement fall prevention plan of care per policy 2. Provide and maintain a safe environment 3. Proper use of double Identifiers 4. Medication administration using the 5 rights 5. Hand hygiene 6. Specimens are labeled at the bedside 7. Instruct patient/ patient account manager sales representative about use of safety devices 8. Include patient/ patient account manager sales representative in decisions related to safety Outcome: Progressing Note: Evaluation of progress towards goal: Patient has sustained no injury Problem: Infection Goal: Absence of infection during hospitalization Description: INTERVENTIONS 1. Assess and monitor for signs and symptoms of infection. 2. Monitor lab/diagnostic results. 3. Monitor all insertion sites i.e., indwelling lines, tubes and drains. 4. Monitor endotracheal (as able) and nasal secretions for changes in amount and color. 5. Administer medications as ordered. 6. Instruct and encourage patient and family to use good hand hygiene technique. 7. Identify and instruct patient/patient account manager sales representative in use of appropriate isolation precautions for identified infection/symptoms. 8. Provide and discuss with patient/patient account manager sales representative on educational MDRO sheet. 9. Encourage and monitor nutritional status daily and consult concrete buster operator if indicated. 10. Implement neutropenic guidelines as needed. Outcome: Progressing Note: Evaluation of progress towards goal: No new signs or sx of infection noted. Problem: Knowledge Deficit Goal: Patient/patient account manager sales representative demonstrates understanding of disease process, treatment plan, medications, and discharge instructions Description: INTERVENTIONS 1. Complete learning assessment and assess knowledge base 2. Provide teaching at level of understanding 3. Provide teaching via preferred learning method(s) Outcome: Progressing Note: Evaluation of progress towards goal: Continue education and reinforcement of topics already educated Problem: Discharge Planning Goal: Discharge to post-acute care, other facility, or home with appropriate resources Description: Patient's goal is: Discharge back to SNF INTERVENTIONS 1. Conduct assessment to determine patient/family and health care team treatment goals, and need for post-acute services based on payer coverage, community resources, and patient preferences, and barriers to discharge 2. Coordinate with Social work, Care Navigation, and Utilization Review to arrange appropriate level of services according to patient's needs based on patient preference and payer coverage in collaboration with the physician and health care team 3. Address psychosocial, clinical, and financial barriers to discharge as identified in assessment in conjunction with the patient/family and health care team 4. Consult appropriate ancillary services (i.e.. PT/OT/ST, etc) as needed 5. Communicate with and update the patient/family, physician, and health care team regarding progress on the discharge plan 6. Identify discharge learning needs (meds, wound care, etc). 7. Arrange for needed discharge transportation as appropriate Outcome: Progressing Note: Evaluation of progress towards goal: Discharge planning ongoing. Problem: Potential for Compromised Skin Integrity Goal: Skin integrity is maintained or improved Description: Patient's goal is: to have no new wounds INTERVENTIONS 1. Perform initial skin assessment on admission and as needed 2. Turn patient every 2 hours and PRN 3. Relieve pressure to bony prominences 4. Avoid shearing 5. Keep skin clean and dry 6. Alternate a full bath with partial baths for elderly 7. Apply lotion/moisturizer on skin 8. Monitor patient's hygiene practices 9. Float heels 10. Collaborate with interdisciplinary team and initiate plans and interventions as needed Outcome: Progressing Note: Evaluation of progress towards goal: No new areas of skin breakdown noted. Goal: Patient's nutritional intake is adequate Description: Patient's goal is: to eat 50% of all meals INTERVENTIONS 1. Assess and monitor food intake and supplements, patient food preferences, nausea, vomiting, labs, oral cavity (gums, teeth, tongue, mucosa), proper denture fit, and cultural beliefs 2. Monitor for signs of hypoglycemia and hyperglycemia 3. Collaborate with interdisciplinary team and initiate plan and interventions as ordered 4. Monitor patient's weight 5. Assist patient with meals/food selection 6. Assist patient with eating 7. Allow adequate time for meals 8. Provide pleasant environment during mealtime 9. Increase social contact during mealtimes 10. Plan activities to conserve energy 11. Encourage/perform oral hygiene as appropriate 12. Encourage patient to take dietary supplement as ordered 13. Collaborate with clinical concrete buster operator 14. Include patient/ patient's account manager sales representative in decisions related to nutrition Outcome: Progressing Note: Evaluation of progress towards goal: Patient's nutrition has been adequate. Problem: Urinary Incontinence Goal: Perineal skin integrity is maintained or improved Description: INTERVENTIONS 1. Assess genitourinary system, perineal skin, labs (urinalysis), and history of incontinence to include past management, aggravating, and alleviating factors 2. Keep skin clean and dry 3. Apply skin protectant 4. Develop skin care regimen 5. Provide privacy when changing patients incontinence device to maintain their dignity 6. Consider placing an indwelling catheter 7. Collaborate with interdisciplinary team and initiate plans and interventions as needed Outcome: Progressing Note: Evaluation of progress towards goal: No new areas of skin breakdown noted. Problem: Moderate - High Risk Fall Score Description: Joiner Fall Score of =/> 25 or indicated by [facility] Assessment Goal: Patient should be free from fall Description: Interventions: 1. [place] to environment 2. Hourly rounds addressing the 4 P's (Pain, Positioning, Possessions, Potty) 3. Clear area of hazards (spills, clutter, electrical cords, unnecessary equipment) 4. Place equipment (bed & TV controls, call light, phone, urinal) within reach 5. Encourage patient to wear glasses and hearing aides as appropriate 6. Maintain bed in lowest position 7. Lock wheels on bed/wheelchair 8. Provide adequate lighting, including night light 9. Assess need for additional bedding, food/fluids, pain med's prior to sleep/routinely 10. Provide gripper slippers or personal non-skid footwear 11. Teach patient and patient account manager sales representative to maintain environment for safety and engage in all aspects of fall prevention program 12. Remind patient to call for help before getting out of bed 13. Initiate bed/chair/exit alarms supportive devices as appropriate, (chair wedge, no-skid floor mat, raised edge mattress, hip protectors) 14. Locate patient bed assignment for optimal visualization 15. Evaluate and identify Safe Patient Handling Equipment needs 16. Provide supervision when out of bed or chair 17. Utilize gait belt as needed to assist with ambulation 18. Place adaptive equipment (cane, walker) within reach 19. Request patient account manager sales representative bring adaptive equipment/mobility aids from home or obtain and provide as needed 20. Consult pharmacy regarding effects of med's affecting mobility, cognition, and alternatives 21. Obtain physician order for PT if risk factors associated with mobility are present 22. Obtain physician order for OT as appropriate 23. Utilize diversional activities 24. Educate patient and patient account manager sales representative how to maintain a safe environment during visitation times (notify nurse prior to leaving bedside) 25. Consider appropriateness of medical or non-medical assistant dermatology 26. Set up voiding schedule as appropriate (every 2 hours) Outcome: Progressing Note: Evaluation of progress towards goal: Patient has been free from falls Problem: Respiratory - Adult Goal: Achieves optimal ventilation and oxygenation Description: Patient's goal is: Maintain O2 sats > 90 INTERVENTIONS: 1. Assess for changes in respiratory status 2. Assess for changes in mentation and behavior 3. Position to facilitate oxygenation and minimize respiratory effort 4. Oxygen supplementation based on oxygen saturation or ABGs as ordered 5. Consult smoking cessation as indicated 6. Encourage broncho-pulmonary hygiene including cough, deep breathe, Incentive Spirometry, keep HOB elevated as tolerated, and encourage ambulation, as ordered 7. Assess the need for suctioning and obtain order to maintain clear airway 8. Assess and instruct patient to report SOB or any respiratory difficulty 9. Assess the need for Respiratory Therapy support if not already ordered 10. Initiate emergency measures for respiratory failure Outcome: Progressing Note: Evaluation of progress towards goal: Patient has maintained a clear airway. They have had no episodes of respiratory distress this shift. Problem: Metabolic/Fluid and Electrolytes - Adult Goal: Electrolytes maintained within normal limits Description: INTERVENTIONS 1. Monitor for signs and symptoms of hypovolemia (tachycardia, rapid breathing, decreased urine output, postural hypotension, sunken fontanel) 2. Monitor for signs and symptoms of hypervolemia (strong rapid pulse, rapid breathing, crackles heard in lung pate, edema, decreased urine output, sudden weight gain, distended neck veins in older children, enlarged liver and spleen) 1. Monitor intake and output 2. Monitor pt's weight 1. Monitor labs and assess patient for signs and symptoms of electrolyte imbalances 2. Administer electrolyte replacement as ordered 3. Monitor response to electrolyte replacements, including repeat lab results as appropriate 4. Fluid restriction or hydration as ordered 5. Instruct patient/ legal account manager sales representative on nutrition/diet; fluid/hydration restrictions as appropriate Outcome: Progressing Note: Evaluation of progress towards goal: Potassium remains slightly elevated. MD aware and patient had dialysis Problem: Skin/Tissue Integrity - Adult Goal: Incisions, wounds, or drain sites healing without S/S of infection Description: INTERVENTIONS 1. ADMISSION & EVERY SHIFT: Assess and document risk factors for pressure ulcer development utilizing the Forrest/Forrest Q scale 2. Assess and document skin integrity 3. Assess and document dressing/incision, wound bed, drain sites and surrounding tissue 4. Implement wound care per orders 5. Initiate isolation precautions as appropriate 6. Initiate high risk precautions Outcome: Progressing Note: Evaluation of progress towards goal: Skin remains intact Problem: Multi-Drug Resistant Organism / Rule-Out Infection Prevention Goal: Prevent transmission of infection Description: INTERVENTIONS 1. Place patient in private room or in room with patient with same disease 2. Discard single-use items 3. Clean reusable equipment between patients 4. Wear gloves for direct and indirect contact with patient or contaminants 5. Change gloves between tasks and procedures 6. Wash hands before and after caring for each patient 7. Wear appropriate personal protective equipment in relation to the indicated isolation type 8. Place appropriate isolation signage on patient's door 9. Provide patient/ patient account manager sales representative with isolation education. Outcome: Progressing Note: Evaluation of progress towards goal: No new signs or sx of infection noted. Problem: Inadequate Breathing Pattern Goal: Patient will achieve/maintain normal respiratory rate/effort Description: Patient's goal is: Maintain O2 sats >90 INTERVENTIONS 1. Assess and monitor respiratory rate, effort, breathing pattern, and oxygenation 2. Monitor patient for restlessness, anxiety, air hunger 3. Assess physical activity tolerance 4. Assess tobacco history; ask, advise, and refer as appropriate 5. Collaborate with interdisciplinary team and initiate plans/interventions as needed Outcome: Progressing Note: Evaluation of progress towards goal: Patient has maintained a clear airway. They have had no episodes of respiratory distress [facility] shift[facility] care [facility] Problem: Inadequate Breathing Pattern Goal: Patient will achieve/maintain normal respiratory rate/effort Description: Patient's goal is: INTERVENTIONS 1. Assess and monitor respiratory rate, effort, breathing pattern, and oxygenation 2. Monitor patient for restlessness, anxiety, air hunger 3. Assess physical activity tolerance 4. Assess tobacco history; ask, advise, and refer as appropriate 5. Collaborate with interdisciplinary team and initiate plans/interventions as needed Outcome: Progressing Note: Evaluation of progress towards goal: stable on ra Respiratory Therapy Clinical Practice Guidelines Consult Clinical Practice Guidelines Ordered Consult Assessment: Consult, Bronchodilator Bronchodilator Indications: Bronchospasm/wheezing Bronchodilator Total: 1 Vital Signs Pulse: 89 Resp: 16 SpO2: 100 % O2 Device: None (Room air) Respiratory Assessment Assessment Type: Subsequent assessment Level of Consciousness: Alert Respiratory Pattern: Regular Chest Assessment: Chest expansion symmetrical Bilateral Breath Sounds: Clear, Diminished Patient Active Problem List Diagnosis Personal history of DVT (deep vein thrombosis) Closed fracture of femur with nonunion Charcot's arthropathy Anemia of chronic disease Chronic renal impairment, stage 4 (severe) ([facility]) End stage renal disease ([facility]) ESRD (end stage renal disease) ([facility]) Family history of MS (multiple sclerosis) Chronic indwelling Douglas catheter Leukocytosis Morbid obesity ([facility]) MS (multiple sclerosis) ([facility]) Traumatic ulcer of left lower extremity with fat layer exposed ([facility]) Traumatic ulcer of right lower extremity with fat layer exposed ([facility]) Dermatitis associated with moisture Lymphedema AV fistula stenosis ([facility]) Pseudoaneurysm following procedure ([facility]) Anxiety and depression Carpal tunnel syndrome Chronic back pain Congenital pes planus DDD (degenerative disc disease), lumbar Disturbance of skin sensation Enthesopathy of hip region Facet arthritis of lumbar region Lack of coordination Neurogenic bladder Numbness Osteoporosis Pain in limb Peripheral neuropathy Polyneuropathy Radicular pain Radiculopathy, lumbosacral region Ulnar nerve abnormality Chronic fatigue Debility Pressure injury of right calf, stage 3 ([facility]) Wound infection Last Chest XRAY: Reviewed Pulmonary History: none RT Reassessment Due In: prn Bronchodilator Respiratory Rate Level 1: Less than 20 Dyspnea Level 1: No SOB Breath Sounds Level 1: Clear Respiratory History Level 1: None Oxygen to Keep SpO2 Greater Than Or Equal To 92% Level 1: Room air or baseline O2 ; NIV less than or equal to 40% Peak Flow ([employer] Only) Patients Current Level & Intervention: 1 Every 4 hours PRN for wheezing via nebulizer [facility] 05-18-2024 Procedure note Associated Ord er(s): HEMODIALYSIS INPATIENT Starting weight: 133.5 Kg Post weight: 131 Kg Goal fluid Removal: 2 L Fluid Removal: 2.5 L 3.5 hours of HD. 10 mg midodrine given for hypotension. No additional interventions required. Pt and access tolerated treatment appropriately. [facility] 05-18-2024 Procedure note Associated Ord er(s): HEMODIALYSIS INPATIENT Starting weight: 133.5 Kg Post weight: 131 Kg Goal fluid Removal: 2 L Fluid Removal: 2.5 L 3.5 hours of HD. 10 mg midodrine given for hypotension. No additional interventions required. Pt and access tolerated treatment appropriately. documented in this encounter [facility] 05-18-2024 Progress note Formatting of t his note might be different from the original. DISCHARGE PLANNING NOTE Case discussed in daily transition rounds and chart reviewed by CN. Barriers to discharge include blood cultures pending Discharge Plan remains: return to [facility] in [facility]. Pt is a long-term resident there. She receives HD at facility. Checking with facility if auth is needed prior to pt's return. CN will continue to follow and is available should any further needs arise. - Belinda Odom RN 05/18/24 10:36 AM Addendum: Per facility, no auth needed to return. - Belinda Odom RN 05/18/24 4:19 PM [facility] Work Phone: 05-18-2024 Plan of care note Images from the original note were not included. Plan of Care Note - [facility] Attempted to see patient today for new consult on RLE wounds. Unable to complete visit as patient not in room/off unit at time of rounding. Will re attempt assessment tomorrow. Patient otherwise may continue skin/wound care as ordered by the bedside nurse team and discharge when ready per wound care perspective. [facility] [id number] Secure Chat or page [phone] GINA Kim 05/18/24 1602 [facility] 05-18-2024 Plan of care note Problem: Pain Goal: Patient goal is pain score less than 4, able to rest, and participant in treatment plan as appropriate Description: INTERVENTIONS: 1. Encourage patient or legal account manager sales representative to report early pain and ask for pain medicine when needed 2. Assess pain using appropriate pain scale and include the scale used when documenting 3. Administer analgesics based on type and severity of pain and evaluate response within appropriate time frame 4. Implement non-pharmacological measures as appropriate and evaluate response 5. Consider cultural and social influences on pain and pain management 6. Notify LIP if interventions ineffective or patient reports new pain 7. Monitor vital signs including pulse ox, end-tidal CO2 based on pain intervention 8. Reassess pain per policy 9. Teach patient or legal account manager sales representative interventions for comforting Outcome: Progressing Note: Evaluation of progress towards goal: Denied pain Problem: Safety Goal: Patient will be injury free during hospitalization Description: INTERVENTIONS: 1. Assess patient's risk for falls and implement fall prevention plan of care per policy 2. Provide and maintain a safe environment 3. Proper use of double Identifiers 4. Medication administration using the 5 rights 5. Hand hygiene 6. Specimens are labeled at the bedside 7. Instruct patient/ patient account manager sales representative about use of safety devices 8. Include patient/ patient account manager sales representative in decisions related to safety Outcome: Progressing Note: Evaluation of progress towards goal: remains free of injury. Safety maintained. Problem: Infection Goal: Absence of infection during hospitalization Description: INTERVENTIONS 1. Assess and monitor for signs and symptoms of infection. 2. Monitor lab/diagnostic results. 3. Monitor all insertion sites i.e., indwelling lines, tubes and drains. 4. Monitor endotracheal (as able) and nasal secretions for changes in amount and color. 5. Administer medications as ordered. 6. Instruct and encourage patient and family to use good hand hygiene technique. 7. Identify and instruct patient/patient account manager sales representative in use of appropriate isolation precautions for identified infection/symptoms. 8. Provide and discuss with patient/patient account manager sales representative on educational MDRO sheet. 9. Encourage and monitor nutritional status daily and consult concrete buster operator if indicated. 10. Implement neutropenic guidelines as needed. Outcome: Progressing Note: Evaluation of progress towards goal: PT lab values and vitals monitored for signs of infection. Problem: Knowledge Deficit Goal: Patient/patient account manager sales representative demonstrates understanding of disease process, treatment plan, medications, and discharge instructions Description: INTERVENTIONS 1. Complete learning assessment and assess knowledge base 2. Provide teaching at level of understanding 3. Provide teaching via preferred learning method(s) Outcome: Progressing Note: Evaluation of progress towards goal: Verbalized understanding of disease process and treatments. Problem: Discharge Planning Goal: Discharge to post-acute care, other facility, or home with appropriate resources Description: Patient's goal is: INTERVENTIONS 1. Conduct assessment to determine patient/family and health care team treatment goals, and need for post-acute services based on payer coverage, community resources, and patient preferences, and barriers to discharge 2. Coordinate with Social work, Care Navigation, and Utilization Review to arrange appropriate level of services according to patient's needs based on patient preference and payer coverage in collaboration with the physician and health care team 3. Address psychosocial, clinical, and financial barriers to discharge as identified in assessment in conjunction with the patient/family and health care team 4. Consult appropriate ancillary services (i.e.. PT/OT/ST, etc) as needed 5. Communicate with and update the patient/family, physician, and health care team regarding progress on the discharge plan 6. Identify discharge learning needs (meds, wound care, etc). 7. Arrange for needed discharge transportation as appropriate Outcome: Progressing Note: Evaluation of progress towards goal: patient will be discharge to SNF Problem: Glucose Imbalance Goal: Clinical indication of glucose balance is achieved Description: Patient's goal is: INTERVENTIONS 1. Monitor blood glucose levels as ordered 2. Administer medications as ordered 3. Notify physician of ineffective treatment plan Outcome: Progressing Note: Evaluation of progress towards goal: blood glucose monitored Goal: Patient's discharge needs are met Description: Patient's goal is: INTERVENTIONS 1. Assess patient for self-management skills 2. Encourage participation in diabetes management 3. Identify potential discharge barriers on admission and throughout hospital stay 4. Involve patient/S.O. in discharge planning process 5. Communicate referral to hematology nurse educator as appropriate 6. Communicate referral to concrete buster operator as appropriate 7. Collaborate with case management/drug abuse social worker for discharge needs Outcome: Progressing Note: Evaluation of progress towards goal: patient will be discharge to SNF Problem: Potential for Compromised Skin Integrity Goal: Skin integrity is maintained or improved Description: Patient's goal is: INTERVENTIONS 1. Perform initial skin assessment on admission and as needed 2. Turn patient every 2 hours and PRN 3. Relieve pressure to bony prominences 4. Avoid shearing 5. Keep skin clean and dry 6. Alternate a full bath with partial baths for elderly 7. Apply lotion/moisturizer on skin 8. Monitor patient's hygiene practices 9. Float heels 10. Collaborate with interdisciplinary team and initiate plans and interventions as needed Outcome: Progressing Note: Evaluation of progress towards goal: remains free of injury. Safety maintained. Goal: Patient's nutritional intake is adequate Description: Patient's goal is: INTERVENTIONS 1. Assess and monitor food intake and supplements, patient food preferences, nausea, vomiting, labs, oral cavity (gums, teeth, tongue, mucosa), proper denture fit, and cultural beliefs 2. Monitor for signs of hypoglycemia and hyperglycemia 3. Collaborate with interdisciplinary team and initiate plan and interventions as ordered 4. Monitor patient's weight 5. Assist patient with meals/food selection 6. Assist patient with eating 7. Allow adequate time for meals 8. Provide pleasant environment during mealtime 9. Increase social contact during mealtimes 10. Plan activities to conserve energy 11. Encourage/perform oral hygiene as appropriate 12. Encourage patient to take dietary supplement as ordered 13. Collaborate with clinical concrete buster operator 14. Include patient/ patient's account manager sales representative in decisions related to nutrition Outcome: Progressing Note: Evaluation of progress towards goal: Patient encouraged to eat meals Problem: Urinary Incontinence Goal: Perineal skin integrity is maintained or improved Description: INTERVENTIONS 1. Assess genitourinary system, perineal skin, labs (urinalysis), and history of incontinence to include past management, aggravating, and alleviating factors 2. Keep skin clean and dry 3. Apply skin protectant 4. Develop skin care regimen 5. Provide privacy when changing patients incontinence device to maintain their dignity 6. Consider placing an indwelling catheter 7. Collaborate with interdisciplinary team and initiate plans and interventions as needed Outcome: Progressing Note: Evaluation of progress towards goal: perineal skin integrity maintained. Ointments applied Problem: Moderate - High Risk Fall Score Description: Squire Fall Score of =/> [address] [facility] Assessment Goal: Patient should be free from fall Description: Interventions: 1. [place] to environment 2. Hourly rounds addressing the 4 P's (Pain, Positioning, Possessions, Potty) 3. Clear area of hazards (spills, clutter, electrical cords, unnecessary equipment) 4. Place equipment (bed & TV controls, call light, phone, urinal) within reach 5. Encourage patient to wear glasses and hearing aides as appropriate 6. Maintain bed in lowest position 7. Lock wheels on bed/wheelchair 8. Provide adequate lighting, including night light 9. Assess need for additional bedding, food/fluids, pain med's prior to sleep/routinely 10. Provide gripper slippers or personal non-skid footwear 11. Teach patient and patient account manager sales representative to maintain environment for safety and engage in all aspects of fall prevention program 12. Remind patient to call for help before getting out of bed 13. Initiate bed/chair/exit alarms supportive devices as appropriate, (chair wedge, no-skid floor mat, raised edge mattress, hip protectors) 14. Locate patient bed assignment for optimal visualization 15. Evaluate and identify Safe Patient Handling Equipment needs 16. Provide supervision when out of bed or chair 17. Utilize gait belt as needed to assist with ambulation 18. Place adaptive equipment (cane, walker) within reach 19. Request patient account manager sales representative bring adaptive equipment/mobility aids from home or obtain and provide as needed 20. Consult pharmacy regarding effects of med's affecting mobility, cognition, and alternatives 21. Obtain physician order for PT if risk factors associated with mobility are present 22. Obtain physician order for OT as appropriate 23. Utilize diversional activities 24. Educate patient and patient account manager sales representative how to maintain a safe environment during visitation times (notify nurse prior to leaving bedside) 25. Consider appropriateness of medical or non-medical assistant dermatology 26. Set up voiding schedule as appropriate (every 2 hours) Outcome: Progressing Note: Evaluation of progress towards goal: Remains free of fall. Call light and personal belongings are within reach. Bed in low position and wheels are locked. Hourly rounding maintained. Problem: Respiratory - Adult Goal: Achieves optimal ventilation and oxygenation Description: Patient's goal is: INTERVENTIONS: 1. Assess for changes in respiratory status 2. Assess for changes in mentation and behavior 3. Position to facilitate oxygenation and minimize respiratory effort 4. Oxygen supplementation based on oxygen saturation or ABGs as ordered 5. Consult smoking cessation as indicated 6. Encourage broncho-pulmonary hygiene including cough, deep breathe, Incentive Spirometry, keep HOB elevated as tolerated, and encourage ambulation, as ordered 7. Assess the need for suctioning and obtain order to maintain clear airway 8. Assess and instruct patient to report SOB or any respiratory difficulty 9. Assess the need for Respiratory Therapy support if not already ordered 10. Initiate emergency measures for respiratory failure Outcome: Progressing Note: Evaluation of progress towards goal: optimal ventilation achieved Problem: Metabolic/Fluid and Electrolytes - Adult Goal: Electrolytes maintained within normal limits Description: INTERVENTIONS 1. Monitor for signs and symptoms of hypovolemia (tachycardia, rapid breathing, decreased urine output, postural hypotension, sunken fontanel) 2. Monitor for signs and symptoms of hypervolemia (strong rapid pulse, rapid breathing, crackles heard in lung pate, edema, decreased urine output, sudden weight gain, distended neck veins in older children, enlarged liver and spleen) 1. Monitor intake and output 2. Monitor pt's weight 1. Monitor labs and assess patient for signs and symptoms of electrolyte imbalances 2. Administer electrolyte replacement as ordered 3. Monitor response to electrolyte replacements, including repeat lab results as appropriate 4. Fluid restriction or hydration as ordered 5. Instruct patient/ legal account manager sales representative on nutrition/diet; fluid/hydration restrictions as appropriate Outcome: Progressing Note: Evaluation of progress towards goal: electrolytes monitored and replaced as needed Problem: Skin/Tissue Integrity - Adult Goal: Incisions, wounds, or drain sites healing without S/S of infection Description: INTERVENTIONS 1. ADMISSION & EVERY SHIFT: Assess and document risk factors for pressure ulcer development utilizing the Forrest/Forrest Q scale 2. Assess and document skin integrity 3. Assess and document dressing/incision, wound bed, drain sites and surrounding tissue 4. Implement wound care per orders 5. Initiate isolation precautions as appropriate 6. Initiate high risk precautions Outcome: Progressing Note: Evaluation of progress towards goal: wounds are healing Problem: Multi-Drug Resistant Organism / Rule-Out Infection Prevention Goal: Prevent transmission of infection Description: INTERVENTIONS 1. Place patient in private room or in room with patient with same disease 2. Discard single-use items 3. Clean reusable equipment between patients 4. Wear gloves for direct and indirect contact with patient or contaminants 5. Change gloves between tasks and procedures 6. Wash hands before and after caring for each patient 7. Wear appropriate personal protective equipment in relation to the indicated isolation type 8. Place appropriate isolation signage on patient's door 9. Provide patient/ patient account manager sales representative with isolation education. Outcome: Progressing Note: Evaluation of progress towards goal: standard precaution maintained [facility] 05-17-2024 Progress note Formatting of t his note might be different from the original. DISCHARGE PLANNING NOTE Referral for return sent to [facility], [facility], [facility] in [place] (P# ; F# ) [facility] 05-17-2024 Progress note Formatting of t his note might be different from the original. DISCHARGE PLANNING NOTE SW met with patient, introduced self and explained role. Patient confirmed she lives jail at [facility] in [place], [place]. Patient will require BLS transport to go back. Unsure if patient will need auth to return to SNF. Patient receives HD at facility. [facility] tasked to send referral back to [facility]. SW will continue to follow for additional needs - BENJAMIN AGUIRRE 05/17/24 10:13 AM [facility] 05-17-2024 Plan of care note Problem: Pain Goal: Patient goal is pain score less than 4, able to rest, and participant in treatment plan as appropriate Description: INTERVENTIONS: 1. Encourage patient or legal account manager sales representative to report early pain and ask for pain medicine when needed 2. Assess pain using appropriate pain scale and include the scale used when documenting 3. Administer analgesics based on type and severity of pain and evaluate response within appropriate time frame 4. Implement non-pharmacological measures as appropriate and evaluate response 5. Consider cultural and social influences on pain and pain management 6. Notify LIP if interventions ineffective or patient reports new pain 7. Monitor vital signs including pulse ox, end-tidal CO2 based on pain intervention 8. Reassess pain per policy 9. Teach patient or legal account manager sales representative interventions for comforting 05/17/2024645 by JAMEL Jacobson Outcome: Progressing Note: Evaluation of progress towards goal: medicated for pain as needed 05/17/2024506 by JAMEL Jacobson Outcome: Progressing Note: Evaluation of progress towards goal: denied pain Problem: Safety Goal: Patient will be injury free during hospitalization Description: INTERVENTIONS: 1. Assess patient's risk for falls and implement fall prevention plan of care per policy 2. Provide and maintain a safe environment 3. Proper use of double Identifiers 4. Medication administration using the 5 rights 5. Hand hygiene 6. Specimens are labeled at the bedside 7. Instruct patient/ patient account manager sales representative about use of safety devices 8. Include patient/ patient account manager sales representative in decisions related to safety 05/17/2024645 by JAMEL Jacobson Outcome: Progressing Note: Evaluation of progress towards goal: remains free of injury. Safety maintained. 05/17/2024506 by JAMEL Jacobson Outcome: Progressing Note: Evaluation of progress towards goal: remains free of injury. Safety maintained. Problem: Infection Goal: Absence of infection during hospitalization Description: INTERVENTIONS 1. Assess and monitor for signs and symptoms of infection. 2. Monitor lab/diagnostic results. 3. Monitor all insertion sites i.e., indwelling lines, tubes and drains. 4. Monitor endotracheal (as able) and nasal secretions for changes in amount and color. 5. Administer medications as ordered. 6. Instruct and encourage patient and family to use good hand hygiene technique. 7. Identify and instruct patient/patient account manager sales representative in use of appropriate isolation precautions for identified infection/symptoms. 8. Provide and discuss with patient/patient account manager sales representative on educational MDRO sheet. 9. Encourage and monitor nutritional status daily and consult concrete buster operator if indicated. 10. Implement neutropenic guidelines as needed. 05/17/2024645 by JAMEL Jacobson Outcome: Progressing Note: Evaluation of progress towards goal: PT lab values and vitals monitored for signs of infection. 05/17/2024506 by JAMEL Jacobson Outcome: Progressing Note: Evaluation of progress towards goal: PT lab values and vitals monitored for signs of infection. Problem: Knowledge Deficit Goal: Patient/patient account manager sales representative demonstrates understanding of disease process, treatment plan, medications, and discharge instructions Description: INTERVENTIONS 1. Complete learning assessment and assess knowledge base 2. Provide teaching at level of understanding 3. Provide teaching via preferred learning method(s) 05/17/2024645 by JAMEL Jacobson Outcome: Progressing Note: Evaluation of progress towards goal: Verbalized understanding of disease process and treatments. 05/17/2024506 by JAMEL Jacobson Outcome: Progressing Note: Evaluation of progress towards goal: patient needs education reinforcement Problem: Discharge Planning Goal: Discharge to post-acute care, other facility, or home with appropriate resources Description: Patient's goal is: INTERVENTIONS 1. Conduct assessment to determine patient/family and health care team treatment goals, and need for post-acute services based on payer coverage, community resources, and patient preferences, and barriers to discharge 2. Coordinate with Social work, Care Navigation, and Utilization Review to arrange appropriate level of services according to patient's needs based on patient preference and payer coverage in collaboration with the physician and health care team 3. Address psychosocial, clinical, and financial barriers to discharge as identified in assessment in conjunction with the patient/family and health care team 4. Consult appropriate ancillary services (i.e.. PT/OT/ST, etc) as needed 5. Communicate with and update the patient/family, physician, and health care team regarding progress on the discharge plan 6. Identify discharge learning needs (meds, wound care, etc). 7. Arrange for needed discharge transportation as appropriate 05/17/2024645 by JAMEL Jacobson Outcome: Progressing Note: Evaluation of progress towards goal: patient will be discharge to SNF 05/17/2024506 by JAMEL Jacobson Outcome: Progressing Note: Evaluation of progress towards goal: patient will be discharge to SNF Problem: Glucose Imbalance Goal: Clinical indication of glucose balance is achieved Description: Patient's goal is: INTERVENTIONS 1. Monitor blood glucose levels as ordered 2. Administer medications as ordered 3. Notify physician of ineffective treatment plan 05/17/2024645 by JAMEL Jacobson Outcome: Progressing Note: Evaluation of progress towards goal: blood glucose monitored 05/17/2024506 by JAMEL Jacobson Outcome: Progressing Note: Evaluation of progress towards goal: blood glucose monitored Goal: Patient's discharge needs are met Description: Patient's goal is: INTERVENTIONS 1. Assess patient for self-management skills 2. Encourage participation in diabetes management 3. Identify potential discharge barriers on admission and throughout hospital stay 4. Involve patient/S.O. in discharge planning process 5. Communicate referral to hematology nurse educator as appropriate 6. Communicate referral to concrete buster operator as appropriate 7. Collaborate with case management/drug abuse social worker for discharge needs 05/17/2024645 by JAMEL Jacobson Outcome: Progressing Note: Evaluation of progress towards goal: All patient's discharge needs are met 05/17/2024506 by JAMEL Jacobson Outcome: Progressing Note: Evaluation of progress towards goal: All patient's discharge needs are met Problem: Potential for Compromised Skin Integrity Goal: Skin integrity is maintained or improved Description: Patient's goal is: INTERVENTIONS 1. Perform initial skin assessment on admission and as needed 2. Turn patient every 2 hours and PRN 3. Relieve pressure to bony prominences 4. Avoid shearing 5. Keep skin clean and dry 6. Alternate a full bath with partial baths for elderly 7. Apply lotion/moisturizer on skin 8. Monitor patient's hygiene practices 9. Float heels 10. Collaborate with interdisciplinary team and initiate plans and interventions as needed 05/17/2024645 by JAMEL Jacobson Outcome: Progressing Note: Evaluation of progress towards goal: Skin integrity maintained. Q 2 hours turns maintained. 05/17/2024506 by JAMEL Jacobson Outcome: Progressing Note: Evaluation of progress towards goal: Skin integrity maintained. Q 2 hours turns maintained. Goal: Patient's nutritional intake is adequate Description: Patient's goal is: INTERVENTIONS 1. Assess and monitor food intake and supplements, patient food preferences, nausea, vomiting, labs, oral cavity (gums, teeth, tongue, mucosa), proper denture fit, and cultural beliefs 2. Monitor for signs of hypoglycemia and hyperglycemia 3. Collaborate with interdisciplinary team and initiate plan and interventions as ordered 4. Monitor patient's weight 5. Assist patient with meals/food selection 6. Assist patient with eating 7. Allow adequate time for meals 8. Provide pleasant environment during mealtime 9. Increase social contact during mealtimes 10. Plan activities to conserve energy 11. Encourage/perform oral hygiene as appropriate 12. Encourage patient to take dietary supplement as ordered 13. Collaborate with clinical concrete buster operator 14. Include patient/ patient's account manager sales representative in decisions related to nutrition 05/17/2024645 by JAMEL Jacobson Outcome: Progressing Note: Evaluation of progress towards goal: Patient encouraged to eat meals 05/17/2024506 by JAMEL Jacobson Outcome: Progressing Note: Evaluation of progress towards goal: Patient encouraged to eat meals Problem: Urinary Incontinence Goal: Perineal skin integrity is maintained or improved Description: INTERVENTIONS 1. Assess genitourinary system, perineal skin, labs (urinalysis), and history of incontinence to include past management, aggravating, and alleviating factors 2. Keep skin clean and dry 3. Apply skin protectant 4. Develop skin care regimen 5. Provide privacy when changing patients incontinence device to maintain their dignity 6. Consider placing an indwelling catheter 7. Collaborate with interdisciplinary team and initiate plans and interventions as needed 05/17/2024645 by JAMEL Jacobson Outcome: Progressing Note: Evaluation of progress towards goal: perineal skin integrity maintained. Ointments applied 05/17/2024506 by JAMEL Jacobson Outcome: Progressing Note: Evaluation of progress towards goal: perineal skin integrity maintained. Ointments applied Problem: Moderate - High Risk Fall Score Description: Joiner Fall Score of =/> [address] [facility] Assessment Goal: Patient should be free from fall Description: Interventions: 1. [place] to environment 2. Hourly rounds addressing the 4 P's (Pain, Positioning, Possessions, Potty) 3. Clear area of hazards (spills, clutter, electrical cords, unnecessary equipment) 4. Place equipment (bed & TV controls, call light, phone, urinal) within reach 5. Encourage patient to wear glasses and hearing aides as appropriate 6. Maintain bed in lowest position 7. Lock wheels on bed/wheelchair 8. Provide adequate lighting, including night light 9. Assess need for additional bedding, food/fluids, pain med's prior to sleep/routinely 10. Provide gripper slippers or personal non-skid footwear 11. Teach patient and patient account manager sales representative to maintain environment for safety and engage in all aspects of fall prevention program 12. Remind patient to call for help before getting out of bed 13. Initiate bed/chair/exit alarms supportive devices as appropriate, (chair wedge, no-skid floor mat, raised edge mattress, hip protectors) 14. Locate patient bed assignment for optimal visualization 15. Evaluate and identify Safe Patient Handling Equipment needs 16. Provide supervision when out of bed or chair 17. Utilize gait belt as needed to assist with ambulation 18. Place adaptive equipment (cane, walker) within reach 19. Request patient account manager sales representative bring adaptive equipment/mobility aids from home or obtain and provide as needed 20. Consult pharmacy regarding effects of med's affecting mobility, cognition, and alternatives 21. Obtain physician order for PT if risk factors associated with mobility are present 22. Obtain physician order for OT as appropriate 23. Utilize diversional activities 24. Educate patient and patient account manager sales representative how to maintain a safe environment during visitation times (notify nurse prior to leaving bedside) 25. Consider appropriateness of medical or non-medical assistant dermatology 26. Set up voiding schedule as appropriate (every 2 hours) 05/17/2024 0646 by JAMEL Jacobson Outcome: Progressing Note: Evaluation of progress towards goal: Remains free of fall. Call light and personal belongings are within reach. Bed in low position and wheels are locked. Hourly rounding maintained. 05/17/2024 0507 by JAMEL Jacobson Outcome: Progressing Note: Evaluation of progress towards goal: Remains free of fall. Call light and personal belongings are within reach. Bed in low position and wheels are locked. Hourly rounding maintained. Problem: Respiratory - Adult Goal: Achieves optimal ventilation and oxygenation Description: Patient's goal is: INTERVENTIONS: 1. Assess for changes in respiratory status 2. Assess for changes in mentation and behavior 3. Position to facilitate oxygenation and minimize respiratory effort 4. Oxygen supplementation based on oxygen saturation or ABGs as ordered 5. Consult smoking cessation as indicated 6. Encourage broncho-pulmonary hygiene including cough, deep breathe, Incentive Spirometry, keep HOB elevated as tolerated, and encourage ambulation, as ordered 7. Assess the need for suctioning and obtain order to maintain clear airway 8. Assess and instruct patient to report SOB or any respiratory difficulty 9. Assess the need for Respiratory Therapy support if not already ordered 10. Initiate emergency measures for respiratory failure 05/17/2024 06 by JAMEL Jacobson Outcome: Progressing Note: Evaluation of progress towards goal: optimal ventilation achieves 05/17/2024 050 by JAMEL Jacobson Outcome: Progressing Note: Evaluation of progress towards goal: optimal oxygenation achieves via [place] Problem: Metabolic/Fluid and Electrolytes - Adult Goal: Electrolytes maintained within normal limits Description: INTERVENTIONS 1. Monitor for signs and symptoms of hypovolemia (tachycardia, rapid breathing, decreased urine output, postural hypotension, sunken fontanel) 2. Monitor for signs and symptoms of hypervolemia (strong rapid pulse, rapid breathing, crackles heard in lung pate, edema, decreased urine output, sudden weight gain, distended neck veins in older children, enlarged liver and spleen) 1. Monitor intake and output 2. Monitor pt's weight 1. Monitor labs and assess patient for signs and symptoms of electrolyte imbalances 2. Administer electrolyte replacement as ordered 3. Monitor response to electrolyte replacements, including repeat lab results as appropriate 4. Fluid restriction or hydration as ordered 5. Instruct patient/ legal account manager sales representative on nutrition/diet; fluid/hydration restrictions as appropriate 05/17/2024645 by JAMEL Jacobson Outcome: Progressing Note: Evaluation of progress towards goal: electrolytes monitored 05/17/2024506 by JAMEL Jacobson Outcome: Progressing Note: Evaluation of progress towards goal: electrolytes monitored and replaced as needed Problem: Skin/Tissue Integrity - Adult Goal: Incisions, wounds, or drain sites healing without S/S of infection Description: INTERVENTIONS 1. ADMISSION & EVERY SHIFT: Assess and document risk factors for pressure ulcer development utilizing the Forrest/Forrest Q scale 2. Assess and document skin integrity 3. Assess and document dressing/incision, wound bed, drain sites and surrounding tissue 4. Implement wound care per orders 5. Initiate isolation precautions as appropriate 6. Initiate high risk precautions 05/17/2024645 by JAMEL Jacobson Outcome: Progressing Note: Evaluation of progress towards goal: wounds are healing 05/17/2024506 by JAMEL Jacobson Outcome: Progressing Note: Evaluation of progress towards goal: wounds are healing without S/S of infection [facility] 05-17-2024 Consult note Associated Order (s): IP CONSULT TO NEPHROLOGY Images from the original note were not included. NEPHROLOGY ATTENDING ADDENDUM I have personally seen and examined the patient. I have reviewed the note authored by the AGRICULTURE INSTRUCTOR and agree with the assessment and plan. I have also reviewed all the orders that have been placed following my discussion with the AGRICULTURE INSTRUCTOR. My own assessment and plan are as follows: 63 year old lady with end-stage renal disease dialyzing at [place] presented to an outside hospital ER with complaints of weakness, lethargy and altered mental status. She apparently missed her last HD session and was transferred over to [facility] for possible dialysis. Chronic hypotension on scheduled ProAmatine Lokelma to address hyperkalemia Blood cultures are pending Plan for dialysis tomorrow Please contact me at [phone] (Office) or [phone] (Answering service) with any questions. Please feel free to contact me through [employer] Secure chat during the daytime hours, if no response after 5 minutes then call the answering service. Amado Proctor MD [facility] This note was created with the assistance of a speech-recognition program. Although the intention is to generate a document that actually reflects the content of the visit, no guarantees can be provided that every mistake has been identified and corrected by editing. NEPHROLOGY CONSULT NOTE Date of Admission: 05/16/2024 9:45 PM Reason for Consult: End-stage renal disease Referring Physician: PCP: TODD GEORGE MD History of Present Illness Donna Mathews is a 63 y.o. female with a history of lower extremity wounds, multiple sclerosis, and end-stage renal disease who resides at [facility] since 2012. She runs hemodialysis there on a daily basis. She had not been feeling well since early in the week with a sore throat, cough and had missed a session or 2 of hemodialysis due to this not feeling well. She had been noted to be more lethargic and hypoxic requiring supplemental oxygen and she was sent to [facility]. She was anemic and hyperkalemic at [place] and she was sent to [facility] for hemodialysis. Her chest x-ray was unremarkable. She did receive some IV vancomycin before transport. Again she has chronic wounds and follows wound care for right lower extremity and left lower extremity wounds. Today she awakens to voice. She states she is feeling little better. Denies any shortness breath or chest pain. She does not remember her through her last hemodialysis session although she is not the best historian. She does have a left upper arm fistula with a good thrill and bruit. She states there has been no issues with hemodialysis. On exam she has some degree of edema. Difficult to health insurance specialist based on her body habitus. Lungs are clear diminished. Problem List including Medical and Surgical History End-stage renal disease on hemodialysis on a daily basis at nursing facility by way of left upper arm AV fistula Bilateral lower extremity chronic wounds managed by wound care Right buttock and coccyx pressure ulcers Hyperkalemia Anemia of chronic disease History of DVT Diabetes mellitus type 2 Hypertension Hyperlipidemia GERD Multiple sclerosis Lymphedema Morbid obesity History of stroke Thrombocytopenia Chronic indwelling catheter Review of Systems Constitutional: Negative for fever, chills and fatigue HENT: Negative Eyes: Negative for discharge Respiratory: Negative for cough and positive for shortness of breath. Cardiovascular: Negative for chest pain and palpitations. Gastrointestinal: Negative for nausea, vomiting, abdominal pain and diarrhea. Endocrine: Negative for fatigue or unexpected weight gain or weight loss Genitourinary: Negative for dysuria, urgency, frequency, hematuria, flank pain, no decreased urine volume or difficulty urinating. Musculoskeletal: Negative for myalgias, joint swelling and arthritis. Negative for lower extremity edema Skin: Negative for rash. Allergy/immunology: Negative for runny nose or redness of eyes Neurological: Negative for lightheadedness. Hematological: Negative for any recent bleeding or transfusion Psychiatric/Behavioral: Negative Social History: Social History Socioeconomic History Marital status: Single Spouse name: Not on file Number of children: Not on file Years of education: Not on file Highest education level: Not on file Occupational History Not on file Tobacco Use Smoking status: Never Smokeless tobacco: Never Vaping Use Vaping status: Never Used Substance and Sexual Activity Alcohol use: Not Currently Comment: rare Drug use: Never Sexual activity: Defer Other Topics Concern Not on file Social History Narrative Not on file Social Drivers of Health Financial Resource Strain: Low Risk (05/30/2023) Overall Financial Resource Strain (CARDIA) Difficulty of Paying Living Expenses: Not hard at all Food Insecurity: No Food Insecurity (05/15/2024) Hunger Screening Food Insecurity - Worry: Never True Food Insecurity - Inability: Never True Transportation Needs: No Transportation Needs (05/30/2023) PRAPARE - Transportation Lack of Transportation (Medical): No Lack of Transportation (Non-Medical): No Physical Activity: Not on file Stress: Not on file Social Connections: Not on file Interpersonal Safety: Not At Risk (05/30/2023) Humiliation, Afraid, Rape, and Kick questionnaire Fear of Current or Ex-Partner: No Emotionally Abused: No Physically Abused: No Sexually Abused: No Housing Instability: Low Risk (05/30/2023) Housing Instability Housing Instability: No Family History: Family History Problem Relation Age of Onset Breast cancer Cousin Colon cancer Maternal cousin Allergies: No Known Allergies Home Meds: Medications Prior to Admission Medication Sig Dispense Refill Last Dose/Taking acetaminophen (TYLENOL) 325 mg tablet Take 2 tablets (650 mg total) by mouth every 8 (eight) hours Indications: pain. Past Week atorvastatin (LIPITOR) 80 mg tablet Take 1 tablet (80 mg total) by mouth once daily at bedtime. Past Week azelastine (ASTELIN) 137 mcg (0.1 %) nasal spray Administer 2 sprays into each nostril once daily at bedtime Indications: seasonal runny nose. Use in each nostril as directed Past Week B complex-vitamin C-folic acid (NEPHROCAP) 1 mg capsule Take 1 capsule by mouth in the morning. Give one tablet by mouth in the morning for ESRD. Past Week biotin 1 mg tablet Take 1 tablet (1 mg total) by mouth in the morning. Past Week calcium carbonate (OS-NAIMA) 500 mg elemental (1,250 mg) tablet Take 2 tablets (1,000 mg total) by mouth in the morning. Indications: low amount of calcium in the blood. Past Week carboxymethylcellulose (REFRESH TEARS) 1 % ophthalmic solution Administer 1 drop to both eyes in the morning. Indications: dry eye. Past Week carvediloL (COREG) 6.25 mg tablet Take 0.5 tablets (3.125 mg total) by mouth in the morning. Past Week cholecalciferol (VITAMIN D3) 1,000 units tablet Take 1 tablet (1,000 Units total) by mouth in the morning. (Patient taking differently: Take 4 tablets (4,000 Units total) by mouth in the morning.) 30 tablet 3 Past Week ipratropium-albuteroL (DUONEB) 0.5 mg-3 mg(2.5 mg base)/3 mL nebulizer Inhale 3 mL by nebulization every 6 (six) hours as needed for wheezing or shortness of breath. Past Week lactulose (CHRONULAC) 10 gram/15 mL solution Take 45 mL (30 g total) by mouth daily as needed (constipation). Past Week LUTEIN ORAL Take 1 tablet by mouth in the morning. Past Week menthol (BIOFREEZE, MENTHOL,) 4 % gel Apply 1 Application topically every 8 (eight) hours as needed Indications: pain associated with arthritis, sprains and strains. Past Week midodrine (PROAMATINE) 10 mg tablet Take 1 tablet (10 mg total) by mouth 3 (three) times a day. Past Week midodrine (PROAMATINE) 5 mg tablet Take 1 tablet (5 mg total) by mouth daily as needed (if SBP < 100; do not exceed 40 mg/day). Past Week modafiniL (PROVIGIL) 100 mg tablet Take 1 tablet (100 mg total) by mouth in the morning. For MS. Past Week multivitamin with minerals tablet Take 1 tablet by mouth in the morning. Give one tablet by mouth in the afternoon for preventive . Past Week nystatin (MYCOSTATIN) powder Apply 1 Application topically as needed (As needed). Apply to under breast and folds topically as needed for dermatitis Past Week OXcarbazepine (TRILEPTAL) 300 mg tablet Take 1 tablet (300 mg total) by mouth in the morning and 1 tablet (300 mg total) before bedtime. For MS/neuropathy. Past Week oxycodone HCl (OXYCODONE ORAL) Take 5 mg by mouth every 6 (six) hours as needed (every 6 hours). Give one tablet as by mouth every 6 hours as needed for moderate to severe pain Max Daily Amount: 20 mg Past Week pantoprazole (PROTONIX) 40 mg EC tablet Take 1 tablet (40 mg total) by mouth in the morning. Indications: gastroesophageal reflux disease. Past Week polyethylene glycol (GLYCOLAX) 17 gram packet Take 17 g by mouth in the morning. Indications: constipation. In the afternoon . Past Week pregabalin (LYRICA) 75 mg capsule Take 1 capsule (75 mg total) by mouth once daily at bedtime. Give 1 capsule by mouth at bed time for chronic pain Past Week sennosides-docusate sodium (SENOKOT-S) 8.6-50 mg Take 1 tablet by mouth every 12 (twelve) hours as needed for constipation. Past Week sertraline (ZOLOFT) 25 mg tablet Take 2 tablets (50 mg total) by mouth in the morning. Past Week sevelamer (RENVELA) 800 mg tablet Take 1 tablet (800 mg total) by mouth in the morning and 1 tablet (800 mg total) at noon and 1 tablet (800 mg total) in the evening. Take with meals. Past Week simethicone (MYLICON) 80 mg chewable tablet Chew 1 tablet (80 mg total) and swallow every 6 (six) hours as needed (indigestion). Past Week sodium zirconium cyclosilicate (LOKELMA) 10 gram packet Take 10 g by mouth 2 (two) times a week. Saturday and Saturday Past Week trazodone HCl (TRAZODONE ORAL) Take 12.5 mg by mouth nightly. (Patient taking differently: Take 25 mg by mouth nightly Indications: depression, difficulty sleeping.) Taking Differently bisacodyL (DULCOLAX) 5 mg EC tablet Take 1 tablet (5 mg total) by mouth daily as needed for constipation. (Patient not taking: Reported on 04/17/2024) 4 tablet 0 Unknown nut.tx.imp.renal fxn,lac-reduc (NEPRO CARB STEADY) 0.08 gram-1.8 kcal/mL liquid Take 237 fluid ounces by mouth daily after dinner. (Patient not taking: Reported on 05/13/2024) polyethylene glycol (GoLYTELY) 236-22.74-6.74 -5.86 gram solution Starting at noon on day prior to procedure, drink 8 ounces every 30 minutes until all gone or stools are clear. May add flavor packet. (Patient not taking: Reported on 05/13/2024) 4000 mL 0 EDWIN-LOLIS RX 1-60-300 mg-mg-mcg tablet (Patient not taking: Reported on 04/17/2024) Inpatient Meds: atorvastatin, 80 mg, oral, HS carvediloL, 3.125 mg, oral, Daily guaiFENesin, 600 mg, oral, Q12H ANNALISE heparin (porcine), 5,000 Units, subcutaneous, Q8H ANNALISE ipratropium-albuteroL, 3 mL, nebulization, Q6H sevelamer, 800 mg, oral, TID with meals sodium chloride, 3 mL, intravenous, Q12H ANNALISE sodium zirconium cyclosilicate, 10 g, oral, Daily Inpatient Infusion Meds: dextrose 5 % in water, 100 mL/hr sodium chloride 0.9 %, 20 mL/hr Physical Exam: Admission Weight: Vitals: Vitals: 05/16/24 2156 05/17/24 0047 05/17/24 0457 05/17/24 0617 BP: (!) 130/114 93/58 95/58 Pulse: 82 85 78 73 Resp: 18 18 18 Temp: 36.8 C (98.2 F) 36.6 C (97.8 F) TempSrc: Oral Oral SpO2: 99% 92% 98% 100% INTAKE/OUTPUT: No intake or output data in the 24 hours ending 05/17/24 0646 General Appearance: alert, cooperative 63-year-old female, and in no distress Eyes: conjunctivae/corneas clear. Neck: no adenopathy, no carotid bruit, no JVD Head atraumatic normocephalic Mucous membranes are moist Respiratory: Lungs clear diminished to auscultation bilaterally. Cardiovascular: regular rate and rhythm. No murmur Gastrointestinal: Obese, Rounded, non-tender; bowel sounds normal; no masses, no organomegaly no CVA tenderness Musculoskeletal: extremities normal, atraumatic, no cyanosis , 1+ edema Skin: Skin color, texture, turgor normal. No rashes or lesions Neurologic: can move all extremities. Alert awake oriented x3 Psychiatry: Appropriate mode. No depression or anxiety Labs: Results from last 7 days Lab Units 05/17/24 0405 05/16/24 1530 05/16/24 0500 05/15/24 1552 SODIUM mmol/L 134 132* 133* 131* POTASSIUM mmol/L 5.1* 5.4* 4.9 5.0 CHLORIDE mmol/L 95* 94* 96* 93* CO2 mmol/L BUN mg/dL 70* 67* 68* 62* CREATININE mg/dL 6.97* 6.33* 6.10* 6.27* CALCIUM mg/dL 8.2* 7.8* 7.4* 7.8* MAGNESIUM mg/dL 1.8 -- -- -- PHOSPHORUS mg/dL 4.6 -- -- -- Results from last 7 days Lab Units 05/16/24 1640 05/16/24 0500 05/15/24 1552 WBC X10E9/L 13.0* 12.1* 14.7* HEMOGLOBIN g/dL 7.3* 6.4* 7.6* HEMATOCRIT % 21.9* 18.8* 22.5* PLATELETS X10E9/L 154 140* 153 Results from last 7 days Lab Units 05/17/24 0405 MAGNESIUM mg/dL 1.8 Lab Results Component Value Date PTH 116 (H) 09/18/2022 CALCIUM 8.2 (L) 05/17/2024 Lab Results Component Value Date IRON 84 09/14/2022 TIBC 197 (L) 09/14/2022 FERRITIN 666 (H) 09/14/2022 IImpression End-stage renal disease on hemodialysis on a daily basis at nursing facility by way of left upper arm AV fistula. Bilateral lower extremity chronic wounds managed by wound care Hyperkalemia: Correct with Lokelma Anemia of chronic disease : Rule out iron deficiency. Transfuse for hemoglobin less than 7 History of DVT Diabetes mellitus type 2 : Management per primary service Hypertension: Blood pressure appears to be controlled at this point Recommendations No urgency for hemodialysis today Continue hemodialysis on a Saturday basis for now Intake and output Daily weights Check iron stores B12 and folate Start Aranesp Give Lokelma 10 g daily Will discuss with attending and further orders to follow Raoul Bartlett CNP [facility] Thank you for your consultation and allowing us to participate in the care of Donna Mathews and please do not hesitate to call us with any questions at: Office: [phone] Office Answering Service: [phone] This note was created with the assistance of a speech-recognition program. Although the intention is to generate a document that actually reflects the content of the visit, no guarantees can be provided that every mistake has been identified and corrected by editing. GINA Roman 05/17/24 0656 GINA Roman 05/17/24 1042 [employer] Work Phone: 05-17-2024 Plan of care note Problem: Pain Goal: Patient goal is pain score less than 4, able to rest, and participant in treatment plan as appropriate Description: INTERVENTIONS: 1. Encourage patient or legal account manager sales representative to report early pain and ask for pain medicine when needed 2. Assess pain using appropriate pain scale and include the scale used when documenting 3. Administer analgesics based on type and severity of pain and evaluate response within appropriate time frame 4. Implement non-pharmacological measures as appropriate and evaluate response 5. Consider cultural and social influences on pain and pain management 6. Notify LIP if interventions ineffective or patient reports new pain 7. Monitor vital signs including pulse ox, end-tidal CO2 based on pain intervention 8. Reassess pain per policy 9. Teach patient or legal account manager sales representative interventions for comforting Outcome: Progressing Note: Evaluation of progress towards goal: denied pain Problem: Safety Goal: Patient will be injury free during hospitalization Description: INTERVENTIONS: 1. Assess patient's risk for falls and implement fall prevention plan of care per policy 2. Provide and maintain a safe environment 3. Proper use of double Identifiers 4. Medication administration using the 5 rights 5. Hand hygiene 6. Specimens are labeled at the bedside 7. Instruct patient/ patient account manager sales representative about use of safety devices 8. Include patient/ patient account manager sales representative in decisions related to safety Outcome: Progressing Note: Evaluation of progress towards goal: remains free of injury. Safety maintained. Problem: Infection Goal: Absence of infection during hospitalization Description: INTERVENTIONS 1. Assess and monitor for signs and symptoms of infection. 2. Monitor lab/diagnostic results. 3. Monitor all insertion sites i.e., indwelling lines, tubes and drains. 4. Monitor endotracheal (as able) and nasal secretions for changes in amount and color. 5. Administer medications as ordered. 6. Instruct and encourage patient and family to use good hand hygiene technique. 7. Identify and instruct patient/patient account manager sales representative in use of appropriate isolation precautions for identified infection/symptoms. 8. Provide and discuss with patient/patient account manager sales representative on educational MDRO sheet. 9. Encourage and monitor nutritional status daily and consult concrete buster operator if indicated. 10. Implement neutropenic guidelines as needed. Outcome: Progressing Note: Evaluation of progress towards goal: PT lab values and vitals monitored for signs of infection. Problem: Knowledge Deficit Goal: Patient/patient account manager sales representative demonstrates understanding of disease process, treatment plan, medications, and discharge instructions Description: INTERVENTIONS 1. Complete learning assessment and assess knowledge base 2. Provide teaching at level of understanding 3. Provide teaching via preferred learning method(s) Outcome: Progressing Note: Evaluation of progress towards goal: patient needs education reinforcement Problem: Discharge Planning Goal: Discharge to post-acute care, other facility, or home with appropriate resources Description: Patient's goal is: INTERVENTIONS 1. Conduct assessment to determine patient/family and health care team treatment goals, and need for post-acute services based on payer coverage, community resources, and patient preferences, and barriers to discharge 2. Coordinate with Social work, Care Navigation, and Utilization Review to arrange appropriate level of services according to patient's needs based on patient preference and payer coverage in collaboration with the physician and health care team 3. Address psychosocial, clinical, and financial barriers to discharge as identified in assessment in conjunction with the patient/family and health care team 4. Consult appropriate ancillary services (i.e.. PT/OT/ST, etc) as needed 5. Communicate with and update the patient/family, physician, and health care team regarding progress on the discharge plan 6. Identify discharge learning needs (meds, wound care, etc). 7. Arrange for needed discharge transportation as appropriate Outcome: Progressing Note: Evaluation of progress towards goal: patient will be discharge to SNF Problem: Glucose Imbalance Goal: Clinical indication of glucose balance is achieved Description: Patient's goal is: INTERVENTIONS 1. Monitor blood glucose levels as ordered 2. Administer medications as ordered 3. Notify physician of ineffective treatment plan Outcome: Progressing Note: Evaluation of progress towards goal: blood glucose monitored Goal: Patient's discharge needs are met Description: Patient's goal is: INTERVENTIONS 1. Assess patient for self-management skills 2. Encourage participation in diabetes management 3. Identify potential discharge barriers on admission and throughout hospital stay 4. Involve patient/S.O. in discharge planning process 5. Communicate referral to hematology nurse educator as appropriate 6. Communicate referral to concrete buster operator as appropriate 7. Collaborate with case management/drug abuse social worker for discharge needs Outcome: Progressing Note: Evaluation of progress towards goal: All patient's discharge needs are met Problem: Potential for Compromised Skin Integrity Goal: Skin integrity is maintained or improved Description: Patient's goal is: INTERVENTIONS 1. Perform initial skin assessment on admission and as needed 2. Turn patient every 2 hours and PRN 3. Relieve pressure to bony prominences 4. Avoid shearing 5. Keep skin clean and dry 6. Alternate a full bath with partial baths for elderly 7. Apply lotion/moisturizer on skin 8. Monitor patient's hygiene practices 9. Float heels 10. Collaborate with interdisciplinary team and initiate plans and interventions as needed Outcome: Progressing Note: Evaluation of progress towards goal: Skin integrity maintained. Q 2 hours turns maintained. Goal: Patient's nutritional intake is adequate Description: Patient's goal is: INTERVENTIONS 1. Assess and monitor food intake and supplements, patient food preferences, nausea, vomiting, labs, oral cavity (gums, teeth, tongue, mucosa), proper denture fit, and cultural beliefs 2. Monitor for signs of hypoglycemia and hyperglycemia 3. Collaborate with interdisciplinary team and initiate plan and interventions as ordered 4. Monitor patient's weight 5. Assist patient with meals/food selection 6. Assist patient with eating 7. Allow adequate time for meals 8. Provide pleasant environment during mealtime 9. Increase social contact during mealtimes 10. Plan activities to conserve energy 11. Encourage/perform oral hygiene as appropriate 12. Encourage patient to take dietary supplement as ordered 13. Collaborate with clinical concrete buster operator 14. Include patient/ patient's account manager sales representative in decisions related to nutrition Outcome: Progressing Note: Evaluation of progress towards goal: Patient encouraged to eat meals Problem: Urinary Incontinence Goal: Perineal skin integrity is maintained or improved Description: INTERVENTIONS 1. Assess genitourinary system, perineal skin, labs (urinalysis), and history of incontinence to include past management, aggravating, and alleviating factors 2. Keep skin clean and dry 3. Apply skin protectant 4. Develop skin care regimen 5. Provide privacy when changing patients incontinence device to maintain their dignity 6. Consider placing an indwelling catheter 7. Collaborate with interdisciplinary team and initiate plans and interventions as needed Outcome: Progressing Note: Evaluation of progress towards goal: perineal skin integrity maintained. Ointments applied Problem: Moderate - High Risk Fall Score Description: Joiner Fall Score of =/> [address] [facility] Assessment Goal: Patient should be free from fall Description: Interventions: 1. [place] to environment 2. Hourly rounds addressing the 4 P's (Pain, Positioning, Possessions, Potty) 3. Clear area of hazards (spills, clutter, electrical cords, unnecessary equipment) 4. Place equipment (bed & TV controls, call light, phone, urinal) within reach 5. Encourage patient to wear glasses and hearing aides as appropriate 6. Maintain bed in lowest position 7. Lock wheels on bed/wheelchair 8. Provide adequate lighting, including night light 9. Assess need for additional bedding, food/fluids, pain med's prior to sleep/routinely 10. Provide gripper slippers or personal non-skid footwear 11. Teach patient and patient account manager sales representative to maintain environment for safety and engage in all aspects of fall prevention program 12. Remind patient to call for help before getting out of bed 13. Initiate bed/chair/exit alarms supportive devices as appropriate, (chair wedge, no-skid floor mat, raised edge mattress, hip protectors) 14. Locate patient bed assignment for optimal visualization 15. Evaluate and identify Safe Patient Handling Equipment needs 16. Provide supervision when out of bed or chair 17. Utilize gait belt as needed to assist with ambulation 18. Place adaptive equipment (cane, walker) within reach 19. Request patient account manager sales representative bring adaptive equipment/mobility aids from home or obtain and provide as needed 20. Consult pharmacy regarding effects of med's affecting mobility, cognition, and alternatives 21. Obtain physician order for PT if risk factors associated with mobility are present 22. Obtain physician order for OT as appropriate 23. Utilize diversional activities 24. Educate patient and patient account manager sales representative how to maintain a safe environment during visitation times (notify nurse prior to leaving bedside) 25. Consider appropriateness of medical or non-medical assistant dermatology 26. Set up voiding schedule as appropriate (every 2 hours) Outcome: Progressing Note: Evaluation of progress towards goal: Remains free of fall. Call light and personal belongings are within reach. Bed in low position and wheels are locked. Hourly rounding maintained. Problem: Respiratory - Adult Goal: Achieves optimal ventilation and oxygenation Description: Patient's goal is: INTERVENTIONS: 1. Assess for changes in respiratory status 2. Assess for changes in mentation and behavior 3. Position to facilitate oxygenation and minimize respiratory effort 4. Oxygen supplementation based on oxygen saturation or ABGs as ordered 5. Consult smoking cessation as indicated 6. Encourage broncho-pulmonary hygiene including cough, deep breathe, Incentive Spirometry, keep HOB elevated as tolerated, and encourage ambulation, as ordered 7. Assess the need for suctioning and obtain order to maintain clear airway 8. Assess and instruct patient to report SOB or any respiratory difficulty 9. Assess the need for Respiratory Therapy support if not already ordered 10. Initiate emergency measures for respiratory failure Outcome: Progressing Note: Evaluation of progress towards goal: optimal oxygenation achieves via NC Problem: Metabolic/Fluid and Electrolytes - Adult Goal: Electrolytes maintained within normal limits Description: INTERVENTIONS 1. Monitor for signs and symptoms of hypovolemia (tachycardia, rapid breathing, decreased urine output, postural hypotension, sunken fontanel) 2. Monitor for signs and symptoms of hypervolemia (strong rapid pulse, rapid breathing, crackles heard in lung pate, edema, decreased urine output, sudden weight gain, distended neck veins in older children, enlarged liver and spleen) 1. Monitor intake and output 2. Monitor pt's weight 1. Monitor labs and assess patient for signs and symptoms of electrolyte imbalances 2. Administer electrolyte replacement as ordered 3. Monitor response to electrolyte replacements, including repeat lab results as appropriate 4. Fluid restriction or hydration as ordered 5. Instruct patient/ legal account manager sales representative on nutrition/diet; fluid/hydration restrictions as appropriate Outcome: Progressing Note: Evaluation of progress towards goal: electrolytes monitored and replaced as needed Problem: Skin/Tissue Integrity - Adult Goal: Incisions, wounds, or drain sites healing without S/S of infection Description: INTERVENTIONS 1. ADMISSION & EVERY SHIFT: Assess and document risk factors for pressure ulcer development utilizing the Forrest/Forrest Q scale 2. Assess and document skin integrity 3. Assess and document dressing/incision, wound bed, drain sites and surrounding tissue 4. Implement wound care per orders 5. Initiate isolation precautions as appropriate 6. Initiate high risk precautions Outcome: Progressing Note: Evaluation of progress towards goal: wounds are healing without S/S of infection [facility] 05-16-2024 History and physical note IMS-3 HISTORY AND PHYSICAL Date of Service: 05/16/2024 Patient Name: Donna Mathews : 1960 PCP: TODD GEORGE MD Chief Complaint: lethargy, missed hemodialysis session HPI: Donna Mathews is a 63 y.o. female who has past medical history significant for right lower extremity wounds for past 3 years, multiple sclerosis, chronic urinary incontinence, end-stage renal disease on dialysis every day through left upper extremity fistula, and anemia of chronic disease. Patient lives at [facility] since 2012. She mentions feeling unwell for the past 5 days (since Saturday), with a sore throat and dry cough. She had a dialysis session on Saturday, during which she experienced back pain due to which session was stopped. Reportedly, she refused dialysis session the next day.Yesterday, she was noted to be lethargic and hypoxic, requiring supplemental oxygen. EMS was called, and she was transported to [place] [facility]. During transport, she received Duoneb treatment, which resulted in improvement of her oxygen saturation. She was transferred here for hemodialysis. She reports that she does not know why she was sent to the ED. She denies chest pain, shortness of breath, abdominal pain, nausea, vomiting, recent sick contacts, or recent travel. She states her right lower extremity wound is improving. Of note,due to worsening of right lower extremity wound, she was scheduled for surgical debridement in Mar 2024 however was canceled due to improvement in wound. She patient follows with wound care (last seen Mar 2024) who noted decrease in wound measurements. She also had a left lower extremity wound which has now resolved. [place] ED: White blood count 13, hemoglobin initially 6.4 repeat 7.3 (baseline 7-8), sodium 132, potassium 4.9 repeat 5.4, BUN 68 (baseline 20s). She did not receive any transfusions. Respiratory pathogen panel negative. Chest x-ray unremarkable. X-ray tibia fibula right reveals significant soft tissue swelling overlying the medial malleolus without obvious cortical erosion Superficial wound cultures and blood cultures were obtained. Patient received IV vancomycin. On assessment, patient was alert and oriented x3. Blood pressure 130/114 (MAP 120), heart rate in 70s, saturating 97% on room air. Code status was discussed and patient elected to be full code at this time. Past Medical History: Past Medical History: Diagnosis Date Anemia Anemia of chronic disease 08/30/2022 Anxiety AV fistula stenosis ([facility]) 04/01/2023 Charcot's arthropathy 03/27/2013 Charcot's joint CHF (congestive heart failure) ([facility]) Chronic indwelling Douglas catheter 09/13/2022 Chronic kidney disease Chronic renal impairment, stage 4 (severe) ([facility]) 08/30/2022 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 Deep vein thrombosis ([facility]) RLE Dermatitis associated with moisture 09/14/2022 Diabetes mellitus type 2, controlled ([facility]) Dialysis patient ([facility]) End stage renal disease ([facility]) 09/05/2022 ESRD (end stage renal disease) ([facility]) 09/13/2022 Family history of MS (multiple sclerosis) 09/13/2022 GERD (gastroesophageal reflux disease) Hyperlipidemia Hypertension Leukocytosis 09/13/2022 Lymphedema Morbid obesity ([facility]) 09/13/2022 MS (multiple sclerosis) ([facility]) 09/13/2022 Neuromuscular dysfunction of bladder Obesity Personal history of DVT (deep vein thrombosis) 09/29/2013 Positive occult stool blood test 04/17/2024 Stroke ([facility]) Tabes dorsalis Thrombocytopenia ([facility]) Traumatic ulcer of left lower extremity with fat layer exposed ([facility]) 09/14/2022 Traumatic ulcer of right lower extremity with fat layer exposed ([facility]) 09/14/2022 Past Surgical History: Past Surgical History: Procedure Laterality Date BARIATRIC SURGERY Catheter Placement N/A 09/07/2022 Performed by Angelique Mckinnon DO at [facility] CARDIAC CATH LABS CREATION ARTERIOVENOUS FISTULA UPPER EXTREMITY BRACHIAL CEPHALIC, EXPLORATION LEFT WRIST WITH REPAIR OF RADIAL ARTERY LEFT Left 10/31/2022 Performed by Braydon Rich MD at [facility] HEMODIALYSIS INPATIENT 05/31/2023 LIPECTOMY AVF Left 02/25/2023 Performed by Krystin Salcedo MD at [facility] Home Medications: Prior to Admission medications Medication Sig Start Date End Date Taking? Authorizing Provider atorvastatin (LIPITOR) 80 mg tablet Take 1 tablet (80 mg total) by mouth once daily at bedtime. Patient not taking: Reported on 05/13/2024 Not In System Ref Prov biotin 1 mg tablet Take 1 tablet (1 mg total) by mouth in the morning. Not In System Ref Prov bisacodyL (DULCOLAX) 5 mg EC tablet Take 1 tablet (5 mg total) by mouth daily as needed for constipation. Patient not taking: Reported on 05/13/2024 03/13/24 Rajendra Wise MD calcium carbonate (TUMS ORAL) Take 2 tablets by mouth in the morning. Send to dialysis w/ patient. Not In System Ref Prov calcium carbonate (TUMS) 200 mg elemental (500 mg) chewable tablet Chew 2 tablets (400 mg total) and swallow 2 (two) times a day as needed for indigestion. Not In System Ref Prov carvediloL (COREG) 6.25 mg tablet Take 0.5 tablets (3.125 mg total) by mouth in the morning. Not In System Ref Prov cholecalciferol (VITAMIN D3) 1,000 units tablet Take 1 tablet (1,000 Units total) by mouth in the morning. Patient taking differently: Take 4 tablets (4,000 Units total) by mouth in the morning. 09/19/22 Daija Mabry APRN-MARYAM famotidine (PEPCID) 20 mg tablet Take 1 tablet (20 mg total) by mouth Daily at 0700. Take on Mon, , Sat, , Sat Patient not taking: Reported on 05/13/2024 Not In System Ref Prov lactulose (CHRONULAC) 10 gram/15 mL solution Take 45 mL (30 g total) by mouth daily as needed (constipation). Not In System Ref Prov LUTEIN ORAL Take 1 tablet by mouth in the morning. Not In System Ref Prov menthol (BIOFREEZE, MENTHOL,) 4 % gel Apply 1 Application topically every 8 (eight) hours as needed Indications: pain associated with arthritis, sprains and strains. Not In System Ref Prov midodrine (PROAMATINE) 10 mg tablet Take 1 tablet (10 mg total) by mouth 3 (three) times a day. Not In System Ref Prov midodrine (PROAMATINE) 5 mg tablet Take 1 tablet (5 mg total) by mouth daily as needed (if SBP < 100; do not exceed 40 mg/day). 10/06/22 Not In System Ref Prov nut.tx.imp.renal fxn,lac-reduc (NEPRO CARB STEADY) 0.08 gram-1.8 kcal/mL liquid Take 237 fluid ounces by mouth daily after dinner. Patient not taking: Reported on 05/13/2024 Not In System Ref Prov polyethylene glycol (GoLYTELY) 236-22.74-6.74 -5.86 gram solution Starting at noon on day prior to procedure, drink 8 ounces every 30 minutes until all gone or stools are clear. May add flavor packet. Patient not taking: Reported on 05/13/2024 03/13/24 Rajendra Wise MD [facility] RX 1-60-300 mg-mg-mcg tablet 04/04/24 Not In System Ref Prov sennosides-docusate sodium (SENOKOT-S) 8.6-50 mg Take 1 tablet by mouth every 12 (twelve) hours as needed for constipation. 09/19/22 Nessa Cuba MD sertraline (ZOLOFT) 25 mg tablet Take 2 tablets (50 mg total) by mouth in the morning. Not In System Ref Prov sevelamer (RENVELA) 800 mg tablet Take 1 tablet (800 mg total) by mouth in the morning and 1 tablet (800 mg total) at noon and 1 tablet (800 mg total) in the evening. Take with meals. 02/22/23 Not In System Ref Prov simethicone (MYLICON) 80 mg chewable tablet Chew 1 tablet (80 mg total) and swallow every 6 (six) hours as needed. Not In System Ref Prov sodium zirconium cyclosilicate (LOKELMA) 10 gram packet Take 10 g by mouth 2 (two) times a week. Saturday and Saturday Not In System Ref Prov trazodone HCl (TRAZODONE ORAL) Take 12.5 mg by mouth nightly. 10/03/22 Not In System Ref Prov Allergies: Patient has no known allergies. Social History: reports that she has never smoked. She has never used smokeless tobacco. She reports that she does not currently use alcohol. She reports that she does not use drugs. Family History: Family History Problem Relation Age of Onset Breast cancer Cousin Colon cancer Maternal cousin Review of Systems: Review of Systems Constitutional: Negative for fatigue and fever. HENT: Positive for rhinorrhea, sneezing and sore throat. Respiratory: Positive for cough. Negative for shortness of breath. Cardiovascular: Negative for chest pain/discomfort, palpitations and leg swelling. Gastrointestinal: Negative for abdominal distention, abdominal pain, diarrhea and vomiting. Genitourinary: Negative for difficulty urinating and dysuria. Musculoskeletal: Positive for back pain and gait problem. Negative for arthralgias. Skin: Positive for wound. Neurological: Negative for dizziness, facial asymmetry, light-headedness, numbness and headaches. Vital Signs and Physical Exam: BP (!) 130/114 Pulse 82 Temp 36.8 C (98.2 F) (Oral) Resp 18 SpO2 99% No intake or output data in the 24 hours ending 05/16/248 Admission weight: Physical Exam Constitutional: General: She is not in acute distress. Appearance: Normal appearance. She is not ill-appearing. Eyes: General: Right eye: No discharge. Left eye: No discharge. Cardiovascular: Rate and Rhythm: Normal rate. Pulses: Normal pulses. Heart sounds: Normal heart sounds. No murmur heard. Pulmonary: Effort: Pulmonary effort is normal. No respiratory distress. Breath sounds: Normal breath sounds. No wheezing. Abdominal: General: There is no distension. Tenderness: There is no abdominal tenderness. Musculoskeletal: General: Normal range of motion. Right lower leg: Edema (1+) present. Left lower leg: Edema (1+) present. Comments: Bruit in left upper extremity at the site of AV fistula Skin: General: Skin is warm. Comments: RLE wrapped with bandage. A linear horizontal scab, no discharge, open wound, or erythema in LLE Neurological: Mental Status: She is alert. Labs/Imaging: Recent Results (from the past 24 hours) Comprehensive metabolic panel Collection Time: 05/16/24 5:00 AM Result Value Ref Range Sodium 133 (L) 134 - 146 mmol/L Potassium, Bld 4.9 3.5 - 5.0 mmol/L Chloride 96 (L) 98 - 109 mmol/L CO2 25 22 - 32 mmol/L Anion gap 12 5 - 15 mmol/L BUN 68 (H) 5 - 27 mg/dL Creatinine 6.10 (H) 0.40 - 1.00 mg/dL Glucose 89 65 - 99 mg/dL Calcium 7.4 (L) 8.5 - 10.5 mg/dL Total Protein 5.2 (L) 6.0 - 8.0 g/dL Albumin 2.2 (L) 3.2 - 5.3 g/dL Alkaline Phosphatase 56 39 - 130 U/L AST 21 0 - 41 U/L ALT 21 0 - 31 U/L Total bilirubin 1.0 0.3 - 1.2 mg/dL eGFR (CKD-EPI)non-race dependent 7 (L) >59 ml/min/1.73sq.m CBC auto differential Collection Time: 05/16/24 5:00 AM Result Value Ref Range White Blood Cells 12.1 (H) 4.0 - 11.0 X10E9/L RBC count 1.90 (L) 3.80 - 5.20 X10E12/L Hemoglobin 6.4 (LL) 11.7 - 15.5 g/dL Hematocrit 18.8 (L) 35 - 47 % MCV 99 80 - 100 fL MCH 33.6 27 - 34 pg MCHC 33.9 32 - 36 g/dL RDW 16.4 (H) 11.5 - 15.0 % Platelets 140 (L) 150 - 450 X10E9/L MPV 8.8 7 - 12 fL % neutrophils 82.1 % % lymphocytes 7.3 % % monocytes 7.5 % % eosinophils 3.0 % % Basophils 0.1 % Neutrophils Absolute (A) 9.9 (H) 1.5 - 6.6 X10E9/L Lymphocytes Absolute 0.9 (L) 1.0 - 3.5 X10E9/L Monocytes Absolute 0.9 0 - 0.9 X10E9/L Eosinophils Absolute 0.4 0.0 - 0.4 X10E9/L Basophils Absolute 0.0 0.0 - 0.2 X10E9/L Vancomycin, random Collection Time: 05/16/24 5:00 AM Result Value Ref Range Vancomycin 22.4 5.0 - 40.0 ug/mL Type and screen(includes indirect lubna) Collection Time: 05/16/24 12:30 PM Result Value Ref Range ABO O RH Negative Antibody Screen Negative Comprehensive metabolic panel Collection Time: 05/16/24 3:30 PM Result Value Ref Range Sodium 132 (L) 134 - 146 mmol/L Potassium, Bld 5.4 (H) 3.5 - 5.0 mmol/L Chloride 94 (L) 98 - 109 mmol/L CO2 24 22 - 32 mmol/L Anion gap 14 5 - 15 mmol/L BUN 67 (H) 5 - 27 mg/dL Creatinine 6.33 (H) 0.40 - 1.00 mg/dL Glucose 89 65 - 99 mg/dL Calcium 7.8 (L) 8.5 - 10.5 mg/dL Total Protein 5.9 (L) 6.0 - 8.0 g/dL Albumin 2.6 (L) 3.2 - 5.3 g/dL Alkaline Phosphatase 66 39 - 130 U/L AST 25 0 - 41 U/L ALT 22 0 - 31 U/L Total bilirubin 1.0 0.3 - 1.2 mg/dL eGFR (CKD-EPI)non-race dependent 7 (L) >59 ml/min/1.73sq.m CBC auto differential Collection Time: 05/16/24 4:40 PM Result Value Ref Range White Blood Cells 13.0 (H) 4.0 - 11.0 X10E9/L RBC count 2.21 (L) 3.80 - 5.20 X10E12/L Hemoglobin 7.3 (L) 11.7 - 15.5 g/dL Hematocrit 21.9 (L) 35 - 47 % MCV 99 80 - 100 fL MCH 33.2 27 - 34 pg MCHC 33.5 32 - 36 g/dL RDW 16.5 (H) 11.5 - 15.0 % Platelets 154 150 - 450 X10E9/L MPV 8.9 7 - 12 fL % neutrophils 86.1 % % lymphocytes 6.1 % % monocytes 5.1 % % eosinophils 2.6 % % Basophils 0.1 % Neutrophils Absolute (A) 11.2 (H) 1.5 - 6.6 X10E9/L Lymphocytes Absolute 0.8 (L) 1.0 - 3.5 X10E9/L Monocytes Absolute 0.7 0 - 0.9 X10E9/L Eosinophils Absolute 0.3 0.0 - 0.4 X10E9/L Basophils Absolute 0.0 0.0 - 0.2 X10E9/L Microbiology Results Procedure Component Value Units Date/Time Blood culture [[id number]] Collected: 05/15/24 1613 Specimen: Blood Updated: 05/16/24 2218 Specimen Notes right wrist Culture NO GROWTH 1 DAY Wound culture superficial includes gram stain [[id number]] Collected: 05/15/24 1606 Specimen: Wound Swab Updated: 05/15/24 2338 Gram Stain Result 0 to 1 WHITE BLOOD CELLS/LPF 10 to 24 SQUAMOUS EPITHELIAL CELLS/LPF MODERATE GRAM POSITIVE COCCI IN PAIRS AND CHAINS FEW GRAM POSITIVE COCCI IN CLUSTERS Culture PENDING Blood culture [[id number]] Collected: 05/15/24 1600 Specimen: Blood Updated: 05/16/24 2218 Specimen Notes right hand Culture NO GROWTH 1 DAY Urine culture [[id number]] Collected: 05/15/24 1544 Specimen: Urine Updated: 05/15/24 2228 SARS/FLU A+B/RSV by NAAT/Molecular (M4RT Collection Tube) [[id number]] Collected: 05/15/24 1520 Specimen: Nasopharynx Updated: 05/15/24 1634 FLU A PCR Negative FLU B PCR Negative RSV by PCR Negative SARS CoV 2 BY PCR Not Detected X-ray tibia fibula right minimum 2 views Result Date: 05/15/2024 EXAM: XR TIBIA FIBULA RT MIN 2 VWS CLINICAL INDICATIONS: infection. Confusion, lethargy. No sore on right lower extremity. FINDINGS: Changes of total knee arthroplasty, partially visualized, without obvious hardware complication. Hardware is also partially assessed in the first digit metatarsals. Bone demineralization without evidence of acute fracture or malalignment. Significant soft tissue swelling overlying the medial malleolus without obvious underlying cortical erosion. IMPRESSION: Significant soft tissue swelling overlying the medial malleolus without obvious underlying cortical erosion. Please note that radiographs are insensitive for the evaluation of osteomyelitis. If clinically indicated, consider further evaluation with MRI. Finalized by Jesse Mejia on 05/15/2024 5:52 PM X-ray chest 1 view Result Date: 05/15/2024 Clinical history: Shortness of breath. Lethargy. Comparisons: None Findings: AP upright chest radiograph obtained at 4:53 PM. Heart size and pulmonary vasculature appear within normal limits. There is hypoventilation with low lung volumes. No pulmonary parenchymal consolidation. No pleural effusion. No pneumothorax. IMPRESSION: 1. Hypoventilation with low lung volumes, otherwise no acute finding in the chest. Finalized by Jignesh Aguillon MD on 05/15/2024 5:[address] brain without contrast Result Date: 05/15/2024 HISTORY: A 63-year-old female with the history of the altered mental status. EXAM/TECHNIQUE: Multidetector spiral CT scan of brain is performed. Multiplanar reconstruction images are reformatted. All CT scans at this facility use dose modulation, iterative reconstruction, and/or weight based dosing when appropriate to reduce radiation dose to as low as reasonably achievable. COMPARISON: None available. FINDINGS: There is generalize cortical atrophy. Ventricular system is normal in size and configuration for the patient's age and generalized atrophy. There are vague hypodense regions in the deep white matter supratentorially consistent with small vessels ischemic change. There is no evidence of intracranial hemorrhage or acute pathology. The cerebellum and brainstem are unremarkable. No mass effect, midline shift of the structures or extra-axial fluid collections are noted. The calvarium is intact. Mucosal thickening is seen in the paranasal sinuses consistent with chronic sinusitis. Mastoid air cells are clear. IMPRESSION: * No evidence of intracranial hemorrhage or acute pathology. * Small vessels ischemic change in the deep white matter supratentorially and generalized atrophy. * Chronic paranasal sinusitis. Finalized by Jose C Stock MD on 05/15/2024 5:08 PM ASSESSMENT AND PLAN: Hyperkalemia End stage renal disease on hemodialysis everyday - Patient had one incomplete session and missed one session of hemodialysis - Resume home Renvela and Lokelma - Consult nephrology, appreciate recommendations Right lower extremity pressure ulcer Pressure ulcer in right buttock and coccyx - Consult wound care - Compared pictures of the wound from previous from 3 days ago. Does not seem to be infected - Will hold off antibiotics for now given no evidence of infection Upper respiratory tract illness, likely viral - Supportive care Chronic Issues: multiple sclerosis Chronic urinary incontinence End-stage renal disease on dialysis every day through left upper extremity fistula Anemia of chronic disease DVT prophylaxis: heparin subQ Diet: Regular diet Fluids: Oral Disposition: TBD Code Status: Full This note was created with the assistance of a speech-recognition program. Every effort was made to ensure accuracy; however, inadvertent computerized land checker errors may be present. Patient was staffed with Dr. Sandy MD ([facility]) Joanne Calabrese MD PGY-2 Internal Medicine Resident IMS-3 05/16/24 10:28 PM Cosigned by Britney Delgado MD at 05/17/2024 5:56 AM EDT Associated attestation - Britney Delgado MD - 05/17/2024 5:56 AM EDT I have discussed the patient and participated in the critical/stanton portions of the service. I was directly involved in the management and treatment plan of the patient. I reviewed the resident's note and agree with the findings and plan. BRITNEY DELGADO MD [employer] Work Phone: 05-16-2024 History and physical note IMS-3 HISTORY AND PHYSICAL Date of Service: 05/16/2024 Patient Name: Donna Mathews : 1960 PCP: TODD GEORGE MD Chief Complaint: lethargy, missed hemodialysis session HPI: Donna Mathews is a 63 y.o. female who has past medical history significant for right lower extremity wounds for past 3 years, multiple sclerosis, chronic urinary incontinence, end-stage renal disease on dialysis every day through left upper extremity fistula, and anemia of chronic disease. Patient lives at [facility] since 2012. She mentions feeling unwell for the past 5 days (since Saturday), with a sore throat and dry cough. She had a dialysis session on Saturday, during which she experienced back pain due to which session was stopped. Reportedly, she refused dialysis session the next day.Yesterday, she was noted to be lethargic and hypoxic, requiring supplemental oxygen. EMS was called, and she was transported to [place] ED. During transport, she received Duoneb treatment, which resulted in improvement of her oxygen saturation. She was transferred here for hemodialysis. She reports that she does not know why she was sent to the ED. She denies chest pain, shortness of breath, abdominal pain, nausea, vomiting, recent sick contacts, or recent travel. She states her right lower extremity wound is improving. Of note,due to worsening of right lower extremity wound, she was scheduled for surgical debridement in Mar 2024 however was canceled due to improvement in wound. She patient follows with wound care (last seen Mar 2024) who noted decrease in wound measurements. She also had a left lower extremity wound which has now resolved. [place] [facility]: White blood count 13, hemoglobin initially 6.4 repeat 7.3 (baseline 7-8), sodium 132, potassium 4.9 repeat 5.4, BUN 68 (baseline 20s). She did not receive any transfusions. Respiratory pathogen panel negative. Chest x-ray unremarkable. X-ray tibia fibula right reveals significant soft tissue swelling overlying the medial malleolus without obvious cortical erosion Superficial wound cultures and blood cultures were obtained. Patient received IV vancomycin. On assessment, patient was alert and oriented x3. Blood pressure 130/114 (MAP 120), heart rate in 70s, saturating 97% on room air. Code status was discussed and patient elected to be full code at this time. Past Medical History: Past Medical History: Diagnosis Date Anemia Anemia of chronic disease 08/30/2022 Anxiety AV fistula stenosis ([facility]) 04/01/2023 Charcot's arthropathy 03/27/2013 Charcot's joint CHF (congestive heart failure) ([facility]) Chronic indwelling Douglas catheter 09/13/2022 Chronic kidney disease Chronic renal impairment, stage 4 (severe) ([facility]) 08/30/2022 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 Deep vein thrombosis ([facility]) RLE Dermatitis associated with moisture 09/14/2022 Diabetes mellitus type 2, controlled ([facility]) Dialysis patient ([facility]) End stage renal disease ([facility]) 09/05/2022 ESRD (end stage renal disease) ([facility]) 09/13/2022 Family history of MS (multiple sclerosis) 09/13/2022 GERD (gastroesophageal reflux disease) Hyperlipidemia Hypertension Leukocytosis 09/13/2022 Lymphedema Morbid obesity ([facility]) 09/13/2022 MS (multiple sclerosis) ([facility]) 09/13/2022 Neuromuscular dysfunction of bladder Obesity Personal history of DVT (deep vein thrombosis) 09/29/2013 Positive occult stool blood test 04/17/2024 Stroke ([facility]) Tabes dorsalis Thrombocytopenia ([facility]) Traumatic ulcer of left lower extremity with fat layer exposed ([facility]) 09/14/2022 Traumatic ulcer of right lower extremity with fat layer exposed ([facility]) 09/14/2022 Past Surgical History: Past Surgical History: Procedure Laterality Date BARIATRIC SURGERY Catheter Placement N/A 09/07/2022 Performed by Angelique Mckinnon DO at [facility] CARDIAC CATH LABS CREATION ARTERIOVENOUS FISTULA UPPER EXTREMITY BRACHIAL CEPHALIC, EXPLORATION LEFT WRIST WITH REPAIR OF RADIAL ARTERY LEFT Left 10/31/2022 Performed by Braydon Rich MD at [facility] HEMODIALYSIS INPATIENT 05/31/2023 LIPECTOMY AVF Left 02/25/2023 Performed by Krystin Salcedo MD at [facility] Home Medications: Prior to Admission medications Medication Sig Start Date End Date Taking? Authorizing Provider atorvastatin (LIPITOR) 80 mg tablet Take 1 tablet (80 mg total) by mouth once daily at bedtime. Patient not taking: Reported on 05/13/2024 Not In System Ref Prov biotin 1 mg tablet Take 1 tablet (1 mg total) by mouth in the morning. Not In System Ref Prov bisacodyL (DULCOLAX) 5 mg EC tablet Take 1 tablet (5 mg total) by mouth daily as needed for constipation. Patient not taking: Reported on 05/13/2024 03/13/24 Rajendra Wise MD calcium carbonate (TUMS ORAL) Take 2 tablets by mouth in the morning. Send to dialysis w/ patient. Not In System Ref Prov calcium carbonate (TUMS) 200 mg elemental (500 mg) chewable tablet Chew 2 tablets (400 mg total) and swallow 2 (two) times a day as needed for indigestion. Not In System Ref Prov carvediloL (COREG) 6.25 mg tablet Take 0.5 tablets (3.125 mg total) by mouth in the morning. Not In System Ref Prov cholecalciferol (VITAMIN D3) 1,000 units tablet Take 1 tablet (1,000 Units total) by mouth in the morning. Patient taking differently: Take 4 tablets (4,000 Units total) by mouth in the morning. 7/12/23 Daija Mabry APRN-MARYAM famotidine (PEPCID) 20 mg tablet Take 1 tablet (20 mg total) by mouth Daily at 0700. Take on Mon, , Sat, , Sat Patient not taking: Reported on 05/13/2024 Not In System Ref Prov lactulose (CHRONULAC) 10 gram/15 mL solution Take 45 mL (30 g total) by mouth daily as needed (constipation). Not In System Ref Prov LUTEIN ORAL Take 1 tablet by mouth in the morning. Not In System Ref Prov menthol (BIOFREEZE, MENTHOL,) 4 % gel Apply 1 Application topically every 8 (eight) hours as needed Indications: pain associated with arthritis, sprains and strains. Not In System Ref Prov midodrine (PROAMATINE) 10 mg tablet Take 1 tablet (10 mg total) by mouth 3 (three) times a day. Not In System Ref Prov midodrine (PROAMATINE) 5 mg tablet Take 1 tablet (5 mg total) by mouth daily as needed (if SBP < 100; do not exceed 40 mg/day). 10/06/22 Not In System Ref Prov nut.tx.imp.renal fxn,lac-reduc (NEPRO CARB STEADY) 0.08 gram-1.8 kcal/mL liquid Take 237 fluid ounces by mouth daily after dinner. Patient not taking: Reported on 05/13/2024 Not In System Ref Prov polyethylene glycol (GoLYTELY) 236-22.74-6.74 -5.86 gram solution Starting at noon on day prior to procedure, drink 8 ounces every 30 minutes until all gone or stools are clear. May add flavor packet. Patient not taking: Reported on 05/13/2024 03/13/24 Rajendra Wise MD [facility] 1-60-300 mg-mg-mcg tablet 04/04/24 Not In System Ref Prov sennosides-docusate sodium (SENOKOT-S) 8.6-50 mg Take 1 tablet by mouth every 12 (twelve) hours as needed for constipation. 09/19/22 Nessa Cuba MD sertraline (ZOLOFT) 25 mg tablet Take 2 tablets (50 mg total) by mouth in the morning. Not In System Ref Prov sevelamer (RENVELA) 800 mg tablet Take 1 tablet (800 mg total) by mouth in the morning and 1 tablet (800 mg total) at noon and 1 tablet (800 mg total) in the evening. Take with meals. 02/22/23 Not In System Ref Prov simethicone (MYLICON) 80 mg chewable tablet Chew 1 tablet (80 mg total) and swallow every 6 (six) hours as needed. Not In System Ref Prov sodium zirconium cyclosilicate (LOKELMA) 10 gram packet Take 10 g by mouth 2 (two) times a week. Saturday and Saturday Not In System Ref Prov trazodone HCl (TRAZODONE ORAL) Take 12.5 mg by mouth nightly. 10/03/22 Not In System Ref Prov Allergies: Patient has no known allergies. Social History: reports that she has never smoked. She has never used smokeless tobacco. She reports that she does not currently use alcohol. She reports that she does not use drugs. Family History: Family History Problem Relation Age of Onset Breast cancer Cousin Colon cancer Maternal cousin Review of Systems: Review of Systems Constitutional: Negative for fatigue and fever. HENT: Positive for rhinorrhea, sneezing and sore throat. Respiratory: Positive for cough. Negative for shortness of breath. Cardiovascular: Negative for chest pain/discomfort, palpitations and leg swelling. Gastrointestinal: Negative for abdominal distention, abdominal pain, diarrhea and vomiting. Genitourinary: Negative for difficulty urinating and dysuria. Musculoskeletal: Positive for back pain and gait problem. Negative for arthralgias. Skin: Positive for wound. Neurological: Negative for dizziness, facial asymmetry, light-headedness, numbness and headaches. Vital Signs and Physical Exam: BP (!) 130/114 Pulse 82 Temp 36.8 C (98.2 F) (Oral) Resp 18 SpO2 99% No intake or output data in the 24 hours ending 05/16/248 Admission weight: Physical Exam Constitutional: General: She is not in acute distress. Appearance: Normal appearance. She is not ill-appearing. Eyes: General: Right eye: No discharge. Left eye: No discharge. Cardiovascular: Rate and Rhythm: Normal rate. Pulses: Normal pulses. Heart sounds: Normal heart sounds. No murmur heard. Pulmonary: Effort: Pulmonary effort is normal. No respiratory distress. Breath sounds: Normal breath sounds. No wheezing. Abdominal: General: There is no distension. Tenderness: There is no abdominal tenderness. Musculoskeletal: General: Normal range of motion. Right lower leg: Edema (1+) present. Left lower leg: Edema (1+) present. Comments: Bruit in left upper extremity at the site of AV fistula Skin: General: Skin is warm. Comments: RLE wrapped with bandage. A linear horizontal scab, no discharge, open wound, or erythema in LLE Neurological: Mental Status: She is alert. Labs/Imaging: Recent Results (from the past 24 hours) Comprehensive metabolic panel Collection Time: 05/16/24 5:00 AM Result Value Ref Range Sodium 133 (L) 134 - 146 mmol/L Potassium, Bld 4.9 3.5 - 5.0 mmol/L Chloride 96 (L) 98 - 109 mmol/L CO2 25 22 - 32 mmol/L Anion gap 12 5 - 15 mmol/L BUN 68 (H) 5 - 27 mg/dL Creatinine 6.10 (H) 0.40 - 1.00 mg/dL Glucose 89 65 - 99 mg/dL Calcium 7.4 (L) 8.5 - 10.5 mg/dL Total Protein 5.2 (L) 6.0 - 8.0 g/dL Albumin 2.2 (L) 3.2 - 5.3 g/dL Alkaline Phosphatase 56 39 - 130 U/L AST 21 0 - 41 U/L ALT 21 0 - 31 U/L Total bilirubin 1.0 0.3 - 1.2 mg/dL eGFR (CKD-EPI)non-race dependent 7 (L) >59 ml/min/1.73sq.m CBC auto differential Collection Time: 05/16/24 5:00 AM Result Value Ref Range White Blood Cells 12.1 (H) 4.0 - 11.0 X10E9/L RBC count 1.90 (L) 3.80 - 5.20 X10E12/L Hemoglobin 6.4 (LL) 11.7 - 15.5 g/dL Hematocrit 18.8 (L) 35 - 47 % MCV 99 80 - 100 fL MCH 33.6 27 - 34 pg MCHC 33.9 32 - 36 g/dL RDW 16.4 (H) 11.5 - 15.0 % Platelets 140 (L) 150 - 450 X10E9/L MPV 8.8 7 - 12 fL % neutrophils 82.1 % % lymphocytes 7.3 % % monocytes 7.5 % % eosinophils 3.0 % % Basophils 0.1 % Neutrophils Absolute (A) 9.9 (H) 1.5 - 6.6 X10E9/L Lymphocytes Absolute 0.9 (L) 1.0 - 3.5 X10E9/L Monocytes Absolute 0.9 0 - 0.9 X10E9/L Eosinophils Absolute 0.4 0.0 - 0.4 X10E9/L Basophils Absolute 0.0 0.0 - 0.2 X10E9/L Vancomycin, random Collection Time: 05/16/24 5:00 AM Result Value Ref Range Vancomycin 22.4 5.0 - 40.0 ug/mL Type and screen(includes indirect lubna) Collection Time: 05/16/24 12:30 PM Result Value Ref Range ABO O RH Negative Antibody Screen Negative Comprehensive metabolic panel Collection Time: 05/16/24 3:30 PM Result Value Ref Range Sodium 132 (L) 134 - 146 mmol/L Potassium, Bld 5.4 (H) 3.5 - 5.0 mmol/L Chloride 94 (L) 98 - 109 mmol/L CO2 24 22 - 32 mmol/L Anion gap 14 5 - 15 mmol/L BUN 67 (H) 5 - 27 mg/dL Creatinine 6.33 (H) 0.40 - 1.00 mg/dL Glucose 89 65 - 99 mg/dL Calcium 7.8 (L) 8.5 - 10.5 mg/dL Total Protein 5.9 (L) 6.0 - 8.0 g/dL Albumin 2.6 (L) 3.2 - 5.3 g/dL Alkaline Phosphatase 66 39 - 130 U/L AST 25 0 - 41 U/L ALT 22 0 - 31 U/L Total bilirubin 1.0 0.3 - 1.2 mg/dL eGFR (CKD-EPI)non-race dependent 7 (L) >59 ml/min/1.73sq.m CBC auto differential Collection Time: 05/16/24 4:40 PM Result Value Ref Range White Blood Cells 13.0 (H) 4.0 - 11.0 X10E9/L RBC count 2.21 (L) 3.80 - 5.20 X10E12/L Hemoglobin 7.3 (L) 11.7 - 15.5 g/dL Hematocrit 21.9 (L) 35 - 47 % MCV 99 80 - 100 fL MCH 33.2 27 - 34 pg MCHC 33.5 32 - 36 g/dL RDW 16.5 (H) 11.5 - 15.0 % Platelets 154 150 - 450 X10E9/L MPV 8.9 7 - 12 fL % neutrophils 86.1 % % lymphocytes 6.1 % % monocytes 5.1 % % eosinophils 2.6 % % Basophils 0.1 % Neutrophils Absolute (A) 11.2 (H) 1.5 - 6.6 X10E9/L Lymphocytes Absolute 0.8 (L) 1.0 - 3.5 X10E9/L Monocytes Absolute 0.7 0 - 0.9 X10E9/L Eosinophils Absolute 0.3 0.0 - 0.4 X10E9/L Basophils Absolute 0.0 0.0 - 0.2 X10E9/L Microbiology Results Procedure Component Value Units Date/Time Blood culture [[id number]] Collected: 05/15/24 1613 Specimen: Blood Updated: 05/16/24 2218 Specimen Notes right wrist Culture NO GROWTH 1 DAY Wound culture superficial includes gram stain [[id number]] Collected: 05/15/24 1606 Specimen: Wound Swab Updated: 05/15/24 2338 Gram Stain Result 0 to 1 WHITE BLOOD CELLS/LPF 10 to 24 SQUAMOUS EPITHELIAL CELLS/LPF MODERATE GRAM POSITIVE COCCI IN PAIRS AND CHAINS FEW GRAM POSITIVE COCCI IN CLUSTERS Culture PENDING Blood culture [[id number]] Collected: 05/15/24 1600 Specimen: Blood Updated: 05/16/24 2218 Specimen Notes right hand Culture NO GROWTH 1 DAY Urine culture [[id number]] Collected: 05/15/24 1544 Specimen: Urine Updated: 05/15/24 2228 SARS/FLU A+B/RSV by NAAT/Molecular (M4RT Collection Tube) [[id number]] Collected: 05/15/24 1520 Specimen: Nasopharynx Updated: 05/15/24 1634 FLU A PCR Negative FLU B PCR Negative RSV by PCR Negative SARS CoV 2 BY PCR Not Detected X-ray tibia fibula right minimum 2 views Result Date: 05/15/2024 EXAM: XR TIBIA FIBULA RT MIN 2 VWS CLINICAL INDICATIONS: infection. Confusion, lethargy. No sore on right lower extremity. FINDINGS: Changes of total knee arthroplasty, partially visualized, without obvious hardware complication. Hardware is also partially assessed in the first digit metatarsals. Bone demineralization without evidence of acute fracture or malalignment. Significant soft tissue swelling overlying the medial malleolus without obvious underlying cortical erosion. IMPRESSION: Significant soft tissue swelling overlying the medial malleolus without obvious underlying cortical erosion. Please note that radiographs are insensitive for the evaluation of osteomyelitis. If clinically indicated, consider further evaluation with MRI. Finalized by Jesse Mejia on 05/15/2024 5:52 PM X-ray chest 1 view Result Date: 05/15/2024 Clinical history: Shortness of breath. Lethargy. Comparisons: None Findings: AP upright chest radiograph obtained at 4:53 PM. Heart size and pulmonary vasculature appear within normal limits. There is hypoventilation with low lung volumes. No pulmonary parenchymal consolidation. No pleural effusion. No pneumothorax. IMPRESSION: 1. Hypoventilation with low lung volumes, otherwise no acute finding in the chest. Finalized by Jignesh Aguillon MD on 05/15/2024 5:[address] brain without contrast Result Date: 05/15/2024 HISTORY: A 63-year-old female with the history of the altered mental status. EXAM/TECHNIQUE: Multidetector spiral CT scan of brain is performed. Multiplanar reconstruction images are reformatted. All CT scans at this facility use dose modulation, iterative reconstruction, and/or weight based dosing when appropriate to reduce radiation dose to as low as reasonably achievable. COMPARISON: None available. FINDINGS: There is generalize cortical atrophy. Ventricular system is normal in size and configuration for the patient's age and generalized atrophy. There are vague hypodense regions in the deep white matter supratentorially consistent with small vessels ischemic change. There is no evidence of intracranial hemorrhage or acute pathology. The cerebellum and brainstem are unremarkable. No mass effect, midline shift of the structures or extra-axial fluid collections are noted. The calvarium is intact. Mucosal thickening is seen in the paranasal sinuses consistent with chronic sinusitis. Mastoid air cells are clear. IMPRESSION: * No evidence of intracranial hemorrhage or acute pathology. * Small vessels ischemic change in the deep white matter supratentorially and generalized atrophy. * Chronic paranasal sinusitis. Finalized by Jose C Stock MD on 05/15/2024 5:08 PM ASSESSMENT AND PLAN: Hyperkalemia End stage renal disease on hemodialysis everyday - Patient had one incomplete session and missed one session of hemodialysis - Resume home Renvela and Lokelma - Consult nephrology, appreciate recommendations Right lower extremity pressure ulcer Pressure ulcer in right buttock and coccyx - Consult wound care - Compared pictures of the wound from previous from 3 days ago. Does not seem to be infected - Will hold off antibiotics for now given no evidence of infection Upper respiratory tract illness, likely viral - Supportive care Chronic Issues: multiple sclerosis Chronic urinary incontinence End-stage renal disease on dialysis every day through left upper extremity fistula Anemia of chronic disease DVT prophylaxis: heparin subQ Diet: Regular diet Fluids: Oral Disposition: TBD Code Status: Full This note was created with the assistance of a speech-recognition program. Every effort was made to ensure accuracy; however, inadvertent computerized land checker errors may be present. Patient was staffed with Dr. Sandy MD ([facility]) Joanne Calabrese MD PGY-2 Internal Medicine Resident [facility] 05/16/24 10:28 PM Cosigned by Britney Delgado MD at 05/17/2024 5:56 AM EDT Associated attestation - Britney Delgado MD - 05/17/2024 5:56 AM EDT I have discussed the patient and participated in the critical/stanton portions of the service. I was directly involved in the management and treatment plan of the patient. I reviewed the resident's note and agree with the findings and plan. BRITNEY DELGADO MD documented in this encounter [facility] 05-13-2024 History of Present illness Narrative Images from the original note were not included. Wound Care Progress Note Patient: Donna Mathews Date of : 1960 Chief Compliant: Bilateral lower leg wounds, follow up SUBJECTIVE/HPI: Donna is a 63 y.o. female who presents to [facility] for evaluation of 2 ulcer(s) on the right and left lateral legs. Patient established with wound clinic on 02/14/2024. Current daily wound care includes: medi honey, copper alginate and PolyMem foam. Patient reports wounds are changed daily by nursing facility. [facility] a [facility]. Reports wound care team at facility treat wounds daily. It appears as if the wounds are a result of her lateral lower legs resting on the support bars of her power chair. Patient states she is scheduled for a chair refitting. Patient states wound on right leg has been present for approximately 3 years. Wound on left leg recently reopened, history of pressure ulcers on right leg. Measurable wound changes: left leg resolved, right leg wound increase in measurement. 6.5 cm increase in RLE calf circumference 3.0 cm increase in LLE calf circumference. Patient accompanied by:self, patient arrives in a power wheelchair. Nutritional screen shows patient does take in three servings of protein per day. Patient does deny fever, chills, sweats, or other signs of infection. Prescribed antibiotics: none Today's reported Blood Sugar:N/A Lab Results Component Value Date HGBA1C 5.5 09/14/2022 HGBA1C 5.7 08/21/2021 Tobacco use: denied - never a smoker Contributing comorbid conditions: MS, nonambulatory, wheelchair dependent, end-stage renal disease, dialysis dependent Labs/Imaging/Cardiovascular: Patient's chart was reviewed for all available supporting documentation, laboratory results and radiographic examination. Patient Active Problem List Diagnosis Personal history of DVT (deep vein thrombosis) Closed fracture of femur with nonunion Charcot's arthropathy Anemia of chronic disease Chronic renal impairment, stage 4 (severe) ([facility]) End stage renal disease ([facility]) ESRD (end stage renal disease) ([facility]) Family history of MS (multiple sclerosis) Chronic indwelling Douglas catheter Leukocytosis Morbid obesity ([facility]) MS (multiple sclerosis) ([facility]) Traumatic ulcer of left lower extremity with fat layer exposed ([facility]) Traumatic ulcer of right lower extremity with fat layer exposed ([facility]) Dermatitis associated with moisture Lymphedema AV fistula stenosis ([facility]) Pseudoaneurysm following procedure ([facility]) Anxiety and depression Carpal tunnel syndrome Chronic back pain Congenital pes planus DDD (degenerative disc disease), lumbar Disturbance of skin sensation Enthesopathy of hip region Facet arthritis of lumbar region Lack of coordination Neurogenic bladder Numbness Osteoporosis Pain in limb Peripheral neuropathy Polyneuropathy Radicular pain Radiculopathy, lumbosacral region Ulnar nerve abnormality Chronic fatigue Debility Pressure injury of right calf, stage 3 ([facility]) Past Medical History: Diagnosis Date Anemia Anemia of chronic disease 08/30/2022 Anxiety AV fistula stenosis ([facility]) 04/01/2023 Charcot's arthropathy 03/27/2013 Charcot's joint CHF (congestive heart failure) ([facility]) Chronic indwelling Douglas catheter 09/13/2022 Chronic kidney disease Chronic renal impairment, stage 4 (severe) ([facility]) 08/30/2022 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 Deep vein thrombosis ([facility]) RLE Dermatitis associated with moisture 09/14/2022 Diabetes mellitus type 2, controlled ([facility]) Dialysis patient ([facility]) End stage renal disease ([facility]) 09/05/2022 ESRD (end stage renal disease) ([facility]) 09/13/2022 Family history of MS (multiple sclerosis) 09/13/2022 GERD (gastroesophageal reflux disease) Hyperlipidemia Hypertension Leukocytosis 09/13/2022 Lymphedema Morbid obesity ([facility]) 09/13/2022 MS (multiple sclerosis) ([facility]) 09/13/2022 Neuromuscular dysfunction of bladder Obesity Personal history of DVT (deep vein thrombosis) 09/29/2013 Positive occult stool blood test 04/17/2024 Stroke ([facility]) Tabes dorsalis Thrombocytopenia ([facility]) Traumatic ulcer of left lower extremity with fat layer exposed ([facility]) 09/14/2022 Traumatic ulcer of right lower extremity with fat layer exposed ([facility]) 09/14/2022 Past Surgical History: Procedure Laterality Date BARIATRIC SURGERY Catheter Placement N/A 09/07/2022 Performed by Angelique Mckinnon DO at [facility] CARDIAC CATH LABS CREATION ARTERIOVENOUS FISTULA UPPER EXTREMITY BRACHIAL CEPHALIC, EXPLORATION LEFT WRIST WITH REPAIR OF RADIAL ARTERY LEFT Left 10/31/2022 Performed by Braydon Rich MD at [facility] HEMODIALYSIS INPATIENT 05/31/2023 LIPECTOMY AVF Left 02/25/2023 Performed by Krystin Salcedo MD at [facility] Current Outpatient Medications Medication Sig Dispense Refill biotin 1 mg tablet Take 1 tablet (1 mg total) by mouth in the morning. calcium carbonate (TUMS ORAL) Take 2 tablets by mouth in the morning. Send to dialysis w/ patient. calcium carbonate (TUMS) 200 mg elemental (500 mg) chewable tablet Chew 2 tablets (400 mg total) and swallow 2 (two) times a day as needed for indigestion. carvediloL (COREG) 6.25 mg tablet Take 0.5 tablets (3.125 mg total) by mouth in the morning. cholecalciferol (VITAMIN D3) 1,000 units tablet Take 1 tablet (1,000 Units total) by mouth in the morning. (Patient taking differently: Take 4 tablets (4,000 Units total) by mouth in the morning.) 30 tablet 3 lactulose (CHRONULAC) 10 gram/15 mL solution Take 45 mL (30 g total) by mouth daily as needed (constipation). LUTEIN ORAL Take 1 tablet by mouth in the morning. menthol (BIOFREEZE, MENTHOL,) 4 % gel Apply 1 Application topically every 8 (eight) hours as needed Indications: pain associated with arthritis, sprains and strains. midodrine (PROAMATINE) 10 mg tablet Take 1 tablet (10 mg total) by mouth 3 (three) times a day. midodrine (PROAMATINE) 5 mg tablet Take 1 tablet (5 mg total) by mouth daily as needed (if SBP < 100; do not exceed 40 mg/day). sennosides-docusate sodium (SENOKOT-S) 8.6-50 mg Take 1 tablet by mouth every 12 (twelve) hours as needed for constipation. sertraline (ZOLOFT) 25 mg tablet Take 2 tablets (50 mg total) by mouth in the morning. sevelamer (RENVELA) 800 mg tablet Take 1 tablet (800 mg total) by mouth in the morning and 1 tablet (800 mg total) at noon and 1 tablet (800 mg total) in the evening. Take with meals. simethicone (MYLICON) 80 mg chewable tablet Chew 1 tablet (80 mg total) and swallow every 6 (six) hours as needed. sodium zirconium cyclosilicate (LOKELMA) 10 gram packet Take 10 g by mouth 2 (two) times a week. Saturday and Saturday trazodone HCl (TRAZODONE ORAL) Take 12.5 mg by mouth nightly. atorvastatin (LIPITOR) 80 mg tablet Take 1 tablet (80 mg total) by mouth once daily at bedtime. (Patient not taking: Reported on 05/13/2024) bisacodyL (DULCOLAX) 5 mg EC tablet Take 1 tablet (5 mg total) by mouth daily as needed for constipation. (Patient not taking: Reported on 05/13/2024) 4 tablet 0 famotidine (PEPCID) 20 mg tablet Take 1 tablet (20 mg total) by mouth Daily at 0700. Take on Mon, , Wed, Th, Fri (Patient not taking: Reported on 05/13/2024) nut.tx.imp.renal fxn,lac-reduc (NEPRO CARB STEADY) 0.08 gram-1.8 kcal/mL liquid Take 237 fluid ounces by mouth daily after dinner. (Patient not taking: Reported on 05/13/2024) polyethylene glycol (GoLYTELY) 236-22.74-6.74 -5.86 gram solution Starting at noon on day prior to procedure, drink 8 ounces every 30 minutes until all gone or stools are clear. May add flavor packet. (Patient not taking: Reported on 05/13/2024) 4000 mL 0 [facility] 1-60-300 mg-mg-mcg tablet (Patient not taking: Reported on 05/13/2024) No current facility-administered medications for this visit. No Known Allergies Social Drivers of Health Food Insecurity: No Food Insecurity (03/20/2024) Hunger Screening Food Insecurity - Worry: Never True Food Insecurity - Inability: Never True Housing Instability: Low Risk (05/30/2023) Housing Instability Housing Instability: No Transportation Needs: No Transportation Needs (05/30/2023) PRAPARE - Transportation Lack of Transportation (Medical): No Lack of Transportation (Non-Medical): No Utility Difficulties: Not At Risk (05/30/2023) [facility] Utilities Threatened with loss of utilities: No Interpersonal Safety: Not At Risk (05/30/2023) Humiliation, Afraid, Rape, and Kick questionnaire Fear of Current or Ex-Partner: No Emotionally Abused: No Physically Abused: No Sexually Abused: No Financial Resource Strain: Low Risk (05/30/2023) Overall Financial Resource Strain (CARDIA) Difficulty of Paying Living Expenses: Not hard at all Childcare: Unknown (08/15/2018) Childcare Childcare: Unknown Recent Concern: Childcare - High Risk (06/04/2018) Childcare Childcare: Unknown Employment: Unknown (08/15/2018) Employment Employment: Unknown Recent Concern: Employment - High Risk (06/04/2018) Employment Employment: Unknown Purpose - Life: Unknown (03/22/2020) Purpose - Life Purpose and direction in life: Unknown Depression: Not at risk (05/30/2023) PHQ-2 PHQ-2 Score: 0 Alcohol Use: Not At Risk (05/30/2023) AUDIT-C Frequency of Alcohol Consumption: Monthly or less Average Number of Drinks: 1 or 2 Frequency of Binge Drinking: Never Tobacco Use: Low Risk (05/13/2024) Patient History Smoking Tobacco Use: Never Smokeless Tobacco Use: Never Passive Exposure: Not on file Social Connections: Not on file Physical Activity: Not on file Stress: Not on file The following portions of the patient's history were reviewed and updated as appropriate: allergies, current medications, past family history, past medical history, past social history, past surgical history, problem list, and medication reconciliation was completed including current medication and post discharge medication. Pain Scale: Pain Scale 0/10: 0 Review of Systems Constitutional: Negative. Negative for appetite change, chills and fever. HENT: Positive for hearing loss. Negative for trouble swallowing. Eyes: Negative. Respiratory: Negative. Negative for cough, shortness of breath and stridor. Cardiovascular: Positive for leg swelling. Negative for chest pain and palpitations. Gastrointestinal: Negative. Negative for abdominal distention, abdominal pain, nausea and vomiting. Genitourinary: Positive for difficulty urinating. Negative for dysuria, frequency and urgency. Musculoskeletal: Positive for arthralgias, back pain and gait problem. Skin: Positive for color change and wound. Neurological: Positive for numbness. Negative for weakness. Psychiatric/Behavioral: The patient is nervous/anxious. Objective: Vitals: 05/13/24846 BP: 103/85 Pulse: 105 Temp: 36.8 C (98.2 F) Physical Exam Nursing note reviewed. Constitutional: Appearance: She is well-developed. HENT: Head: Normocephalic and atraumatic. Mouth/Throat: Dentition: Abnormal dentition. Cardiovascular: Rate and Rhythm: Regular rhythm. Tachycardia present. Heart sounds: No murmur heard. No friction rub. Comments: Right DP/PT Doppler signal, monophasic , weak Bilateral lower extremity without pitting edema +stemmers sign bilaterally Pulmonary: Effort: No respiratory distress. Breath sounds: Normal breath sounds. No wheezing. Musculoskeletal: General: Normal range of motion. Cervical back: Normal range of motion. Skin: General: Skin is warm and dry. Neurological: Mental Status: She is alert and oriented to person, place, and time. Wound Assessment Wound 02/14/24 1 Calf Right;Right Lateral (Active) Wound Image Pre debridement Post debridement 05/13/24852 Site Assessment Ransom;Red;Yellow;Brown 05/13/24852 Cecy-wound Assessment Blanchable erythema 05/13/24852 Shape Blocked 05/13/24852 Wound Length (cm) 14.5 cm 05/13/24899 Wound Width (cm) 4.7 cm 05/13/24899 Wound Surface Area (cm^2) 68.15 cm^2 05/13/24899 Wound Depth (cm) 0.4 cm 05/13/24899 Wound Volume (cm^3) 27.26 cm^3 05/13/24899 Change in Wound Size % -183.96 05/13/24899 Drainage Description Serosanguineous;Yellow;Stark 05/13/24852 Drainage Amount Small 05/13/24852 Treatments Cleansed with;Wound cleanser;Soak with;Vashe/Hypochlorous Acid 05/13/24852 Debridement Performed? Y 03/05/25 0900 Type of Debridement Sharp to Muscle 05/13/24 0900 Wound Bed Granulation (%) < 25% 05/13/24 0853 Wound Bed Slough (%) 50% to 75% 05/13/24 0853 Discussion: Debridement is the removal of foreign material and/or devitalized tissue until healthy tissue is exposed. Risks, benefits and alternatives were discussed with the patient. We discussed possible complications, including infection and bleeding. Written consent was obtained prior to the procedure. Timeout procedure completed. Goal of debridement includes: removal of devitalized tissue, decrease risk of infection, promote wound healing and prevent further complications. Procedure: Debridement/Procedure Level: Removal of devitalized tissue, nonviable tissue and/or infection. Sub-q/Tissue/Muscle Instrument Used: Adson, Curette, and Scissors Anesthesia EMLA Bleeding: Large Bleeding Control: Pressure Added Pain Control: None Specimen Taken: None Total Surface Area of Debridement: 40 cm2 Xeroform, foam and roll gauze applied today in wound clinic Patient tolerates procedure well Assessment/Plan/Education: 1. Pressure injury of right calf, stage 3 (CMS-HCC) 2. Pressure injury of left calf, stage 2 (CMS-HCC) 3. Lymphedema Continue tomorrow Wash wound daily mild soap and water Cover wounds with medi honey Cover with foam, prefer PolyMem foam if available Secure with roll gauze Secure with PRECIOUS wrap Change daily Patient given a waffle boot to aid in reducing pressure to right lateral lower leg Pad and protect left lower leg to reduce pressure Preventable Bundle Turn a minimum of every 2 hours while in bed. Therapeutic mattress and wheelchair cushion Pad and Protect bony prominences. Assess skin daily Patient instructed in Other: pressure ulcer care to left, right, outer, and calf. Short term goal: medical compliance prison goal: wound closure Patient verbalize understanding of treatment regimen and the importance of adherence. Follow up in wound clinic in 4 weeks Instructed to contact wound clinic, PCP or ER should symptoms worsen. The patient was taught to watch for S/S of infection (redness, pus, pain, increased swelling, chills or fever) and to call the PCP or wound care clinic if such occurs. The patient was educated on offloading the area by avoiding direct pressure to the wound bed. Education as well as the pathophysiology of the disease process was provided on infection, edema, necrotic tissue and its relationship to nonhealing wounds. Education was also provided on treatment plan. Patient verbalized understanding. Total time spent was 19 minutes: Preparing to see the patient (e.g., review of tests) Obtaining and/or reviewing separately obtained history Performing a medically appropriate examination and/or evaluation Counseling and educating the patient/family/caregiver Ordering medications, tests, or procedures Referring and communicating with other health childcare aide (not separately reported) Documenting clinical information in the electronic or other health record - GINA THURMAN 05/13/24 9:27 AM Elidia Tierney APRN, MARYAM, CWS, DUC [facility]: [phone] GINA Thurman 02/17/24 1104 GINA Thurman 02/28/24 1557 GINA Thurman 03/20/24 1438 GINA Thurman 04/03/24 1007 GINA Thurman 05/13/24 0947 documented in this encounter [facility] 05-13-2024 Instructions Cynthia Carlos RN - 05/13/2024 8:40 AM EST Wound Management Treatment Plan [facility] Wound Location(s): right lateral calf, left lateral calf, Right third toe: healed 02/28/24 HOW TO CARE FOR YOUR WOUND: right lateral calf left lateral calf is heal - continue to protect newly healed skin- apply vaseline to area daily The following should be performed Daily and as needed. STEP 1: Cleanse wound with Wound cleanser. Irrigate or rinse wound with NO IRRIGATION REQUIRED. STEP 2: Soak wound with NO SOAK REQUIRED STEP 3: Pack with NO PACKING REQUIRED STEP 4: Apply Medihoney to wound bed. STEP 5: Cover wound with foam STEP 6: Secure dressings with Roll gauze/Kerlix and Tape then precious wrap A WAFFLE BOOT WAS APPLIED TO RIGHT LOWER LEG WEAR BOOT AT ALL TIMES TO PROVIDE RELIEF OF PRESSURE AND PROTECT SKIN RIGHT THIRD POSTERIOR TOE: healed 12/20/24 -apply antibacterial ointment to healed area daily -cover with band aide - change daily ACTIVITY: Avoid direct pressure to wound(s) at all times and Reposition at least every 2 hours NUTRITION: High protein diet SKIN CARE: MAKE SURE TO PAD AND PROTECT PT'S FEET AND LEGS FROM RUBBING ON HER WHEELCHAIR. SWELLING CONTROL: Precious wraps to be applied first thing in the morning and removed at bedtime. right and left leg wrap from base of toes to just below the knee. May require more than one wrap per leg. ITEMS TO FOLLOW UP ON: -Xray of right lower leg completed. -appointment for vascular studies is 03/02/24 A wound culture was obtained at wound care clinic 02/14/24 Length Width Depth Wound 02/14/24 1 Calf Right;Right Lateral-Wound Length (cm): 14.5 cm Wound 02/14/24 3 Calf Left;Lateral-Wound Length (cm): 0 cm Wound 02/14/24 1 Calf Right;Right Lateral-Wound Width (cm): 4.7 cm Wound 02/14/24 3 Calf Left;Lateral-Wound Width (cm): 0 cm Wound 02/14/24 1 Calf Right;Right Lateral-Wound Depth (cm): 0.1 cm Wound 02/14/24 3 Calf Left;Lateral-Wound Depth (cm): 0 cm Wound drainage Type Description small Serosanguinous Stark, yellow, bloody documented in this encounter [facility] 04-28-2024 Telephone encounter Note Requested Prescriptions Signed Prescriptions Disp Refills modafinil (Provigil) 100 MG tablet 30 tablet 5 Sig: Take 1 tablet (100 mg) by mouth Daily Authorizing Provider: CM MATHEWS [facility] 04-28-2024 Miscellaneous Notes Requested Prescriptions Signed Prescriptions Disp Refills modafinil (Provigil) 100 MG tablet 30 tablet 5 Sig: Take 1 tablet (100 mg) by mouth Daily Authorizing Provider: CM MATHEWS documented in this encounter [facility] 04-16-2024 Instructions Formatting of th is note might be different from the original. Your surgery/procedure is scheduled at [facility] on 04/30/24 at 7:30 am Arrival Time 5:30 am [facility] Address: [address] [place] [address] in [address]ing lot located on [facility]. Report to the Entrance B. Check in at the information desk the surgery. The waiting room located on the second floor. If you have any questions prior to surgery, please call Pre-Admission Clinic at [phone] between 7:30 am and 4:30 pm Saturday through Saturday. If you have questions the morning of surgery, please call the Pre-op Department at [phone]. Notify your SURGEON if you develop any illness such as a cold, cough, fever, sore throat, vomiting or are hospitalized between now and your surgery. Medication Instructions (Do not stop your medications without consulting the prescribing physician). Take the following medications the morning of surgery with a sip of water: Carvedilol, Midodrine, Sertraline Diabetic or Weight loss medications: HOLD na Take inhalers as prescribed the morning of surgery. Due to the risk associated with these medications. If these medications are not held per instruction below, your surgery is at an increased risk for cancellation. SGLT2 Medications- Hold 3 days prior to surgery: Jardiance, Empagliflozin, Farxiga, Dapagliflozin, Invokana, Canagliflozin, Trijardy, Synjardy GLP-1 Medications (Injection or Pill)- If taken daily hold day of surgery. If taken weekly, hold 1 week prior to surgery: Adlyxin, Byetta, Bydureon, Ozempic, Rybelsus,Trulicity, Victoza, Wegovy, Lixisenatide, Exenatide, Semaglutide, Dulaglutide, Liraglutide GIP/GLP-1(Injection or Pill)- If taken daily hold day of surgery. If taken weekly, hold 1 week prior to surgery: Lesly . Blood thinners: Please contact your prescribing physician regarding a stop/hold date for these medications. Medications such as Coumadin, Heparin, Aspirin, Plavix, Eliquis, Pradaxa Diabetics: If you take insulin, contact your prescribing doctor for instructions on how to manage this the night before and the morning of surgery. Non-steriodal Anti-Inflammatory Drugs (NSAIDS)- Hold 3 days prior to surgery unless otherwise directed by your surgeon. Vitamins/Herbal Products: You may continue to take your prescribed vitamins such as potassium, iron, vitamin B, vitamin C, or multivitamin unless specifically instructed by your surgeon to hold. STOP taking all herbal products/teas one week prior to your surgery. Marijuana: Stop marijuana 72 hours prior to surgery, stop CBD oil 48 hours prior to surgery. If you have been given bowel prep instructions by your surgeon, please call the surgeon's office with any questions about these instructions. What do I do the day of Surgery? Age 2 through adult - Stop all solids by midnight, You may have clear liquids up to 2 hours before surgery, unless otherwise instructed by your surgeon. Clear liquids are: water, sports drinks such as Gatorade or G2, or apple juice. You may NOT have: tube feedings, dairy products, alcoholic beverages, orange juice, or any liquids with solids or pulp in it. What do I need to do to prepare for surgery? If you will be going home the same day as your surgery, arrange for an adult over [address] Riding in a bus or taxi by yourself is not permitted. You should not smoke or drink alcohol 24 hours before your surgery. Alcohol thins the blood and may cause bleeding problems during surgery. Smoking increases the risk of breathing problems after surgery. Do not use lotions, creams, powders, perfume, make up, cologne or after-shaves day of surgery. Remove ALL jewelry including wedding rings, body piercings (including dermal piercings ,hair extensions that contain metal, nail cypriot, make-up, and contact lens. You may brush your teeth the morning of surgery, but do not swallow the water. Wear your dentures and partial plates to the hospital (no adhesive). What should I bring to the hospital? Eyeglass or contact lens case If you will be spending the night, please bring personal care items and leave them in the car until you are taken to your room after surgery. Leave ALL valuables at home. If any of these instructions conflict with those you received from the surgeon, please seek clarification from your surgeon's office. DEEP BREATHING EXERCISES This exercise helps promote good air exchange and helps to prevent pneumonia after surgery. Breathe in slowly and deeply through the nose. Hold your breath for a few seconds and then exhale slowly through the mouth. Repeat this three times and then cough.Coughing helps to clear your lungs. If you have had a surgery with an incision into your abdomen or chest, press gently against your incision with a pillow or a folded blanket when you cough. Please be aware - it may not be medina to cough following some types of surgeries involving the eyes, ears, sinuses and throat. Always follow your doctor's instructions. LEG EXERCISE These exercises help promote good circulation and help to prevent blood clots after surgery. Point your toes to the ceiling and then point them to the wall. Do this slowly about 15-20 times. You may also move your feet in circles. Do the exercise that is most comfortable for you. If you have had surgery involving your shoulder or arm, we recommend you move your fingers. PRACTICING We ask that you begin practicing these exercises before your surgery. After surgery try to do both exercises at least every 2 hours during the day and early evening. SURGICAL SITE INFECTION PREVENTION What is a Surgical Site Infection? Infection can happen to the area of the body where surgery is done. This is called a surgical site infection (SSI). A SSI does not happen very often. Can SSIs be treated? Antibiotics are used to treat SSI. Some patients may need another surgery to treat the infection. The doctor will discuss treatment options with you. What are some of the things that hospitals are doing to prevent SSIs? Soap and water or alcohol hand rub are used before and after caring for each patient. Special soap is used to clean surgery workers hands and arms just before the surgery. Masks, gowns, gloves and hair covers are worn during the surgery to keep the area clean. Hair in the surgery area may be removed with clippers (not razors). A special soap that kills germs is used to clean the skin at the surgery site. Antibiotics may be given before the surgery starts. What can you do to prevent SSIs? Before surgery: You may be asked to shower or bathe with a special soap that kills germs the night before and the day of surgery. Use the soap as you were told. If you smoke, stop or cut down. Ask your doctor about ways to quit. Do not shave near where you will have surgery. Shaving can irritate the skin and make it easier to get and infection. After surgery: Be sure that the doctors and nurses clean their hands before and after touching you. Be sure your family and friends clean their hands before and after visiting you. Do not be afraid to remind them. * Care for your wound at home as told by your doctor or nurse * Call your doctor right away if you have fever, redness, increased pain, or drainage at the surgery site. Further questions? Contact the doctor, nurse or the Infection Prevention and Control department if you have any questions. PATIENT RIGHTS AND RESPONSIBILITIES As a patient at [facility], you have the right to: Receive medical care and be informed of who is taking care of you Be treated with dignity and respect Have a family member/account manager sales representative of choice and your physician notified of your admission Receive information and actively participate in decisions about your care and treatment Refuse care, treatment and services Decide who may provide your support and speak for you Access sikhism and spiritual services Participate in ethical issues and questions about your care Receive private and confidential care Have appropriate assessment and management of your pain Know guest visitation restrictions or limitations Have an advance directive Access protective services Consent or refuse to participate in research studies or production or recordings, films or other images Have resolution of your complaints Receive information of hospital charges and payment methods Patient/patient account manager sales representative responsibilities are to: Provide information about health status to facilitate care, treatment and services Follow the treatment, plan, keep appointments and speak up when you do not understand the plan Respect the rights of other patients and healthcare personnel Follow organizational rules and regulations that support quality care and a safe environment Fulfill financial obligations as promptly as possible [facility] 04-16-2024 Miscellaneous Notes Your surgery/procedure is scheduled at [facility] on 04/30/24 at 7:30 am Arrival Time 5:30 am [facility] Address: [address] [place] [address] in [address] Parking lot located on [facility]. Report to the Entrance B. Check in at the information desk the surgery. The waiting room located on the second floor. If you have any questions prior to surgery, please call Pre-Admission Clinic at [phone] between 7:30 am and 4:30 pm Saturday through Saturday. If you have questions the morning of surgery, please call the Pre-op Department at [phone]. Notify your SURGEON if you develop any illness such as a cold, cough, fever, sore throat, vomiting or are hospitalized between now and your surgery. Medication Instructions (Do not stop your medications without consulting the prescribing physician). Take the following medications the morning of surgery with a sip of water: Carvedilol, Midodrine, Sertraline Diabetic or Weight loss medications: HOLD na Take inhalers as prescribed the morning of surgery. Due to the risk associated with these medications. If these medications are not held per instruction below, your surgery is at an increased risk for cancellation. SGLT2 Medications- Hold 3 days prior to surgery: Jardiance, Empagliflozin, Farxiga, Dapagliflozin, Invokana, Canagliflozin, Trijardy, Synjardy GLP-1 Medications (Injection or Pill)- If taken daily hold day of surgery. If taken weekly, hold 1 week prior to surgery: Adlyxin, Byetta, Bydureon, Ozempic, Rybelsus,Trulicity, Victoza, Wegovy, Lixisenatide, Exenatide, Semaglutide, Dulaglutide, Liraglutide GIP/GLP-1(Injection or Pill)- If taken daily hold day of surgery. If taken weekly, hold 1 week prior to surgery: Dariusunjessro . Blood thinners: Please contact your prescribing physician regarding a stop/hold date for these medications. Medications such as Coumadin, Heparin, Aspirin, Plavix, Eliquis, Pradaxa Diabetics: If you take insulin, contact your prescribing doctor for instructions on how to manage this the night before and the morning of surgery. Non-steriodal Anti-Inflammatory Drugs (NSAIDS)- Hold 3 days prior to surgery unless otherwise directed by your surgeon. Vitamins/Herbal Products: You may continue to take your prescribed vitamins such as potassium, iron, vitamin B, vitamin C, or multivitamin unless specifically instructed by your surgeon to hold. STOP taking all herbal products/teas one week prior to your surgery. Marijuana: Stop marijuana 72 hours prior to surgery, stop CBD oil 48 hours prior to surgery. If you have been given bowel prep instructions by your surgeon, please call the surgeon's office with any questions about these instructions. What do I do the day of Surgery? Age 2 through adult - Stop all solids by midnight, You may have clear liquids up to 2 hours before surgery, unless otherwise instructed by your surgeon. Clear liquids are: water, sports drinks such as Gatorade or G2, or apple juice. You may NOT have: tube feedings, dairy products, alcoholic beverages, orange juice, or any liquids with solids or pulp in it. What do I need to do to prepare for surgery? If you will be going home the same day as your surgery, arrange for an adult over [address] Riding in a bus or taxi by yourself is not permitted. You should not smoke or drink alcohol 24 hours before your surgery. Alcohol thins the blood and may cause bleeding problems during surgery. Smoking increases the risk of breathing problems after surgery. Do not use lotions, creams, powders, perfume, make up, cologne or after-shaves day of surgery. Remove ALL jewelry including wedding rings, body piercings (including dermal piercings ,hair extensions that contain metal, nail cypriot, make-up, and contact lens. You may brush your teeth the morning of surgery, but do not swallow the water. Wear your dentures and partial plates to the hospital (no adhesive). What should I bring to the hospital? Eyeglass or contact lens case If you will be spending the night, please bring personal care items and leave them in the car until you are taken to your room after surgery. Leave ALL valuables at home. If any of these instructions conflict with those you received from the surgeon, please seek clarification from your surgeon's office. DEEP BREATHING EXERCISES This exercise helps promote good air exchange and helps to prevent pneumonia after surgery. Breathe in slowly and deeply through the nose. Hold your breath for a few seconds and then exhale slowly through the mouth. Repeat this three times and then cough.Coughing helps to clear your lungs. If you have had a surgery with an incision into your abdomen or chest, press gently against your incision with a pillow or a folded blanket when you cough. Please be aware - it may not be medina to cough following some types of surgeries involving the eyes, ears, sinuses and throat. Always follow your doctor's instructions. LEG EXERCISE These exercises help promote good circulation and help to prevent blood clots after surgery. Point your toes to the ceiling and then point them to the wall. Do this slowly about 15-20 times. You may also move your feet in circles. Do the exercise that is most comfortable for you. If you have had surgery involving your shoulder or arm, we recommend you move your fingers. PRACTICING We ask that you begin practicing these exercises before your surgery. After surgery try to do both exercises at least every 2 hours during the day and early evening. SURGICAL SITE INFECTION PREVENTION What is a Surgical Site Infection? Infection can happen to the area of the body where surgery is done. This is called a surgical site infection (SSI). A SSI does not happen very often. Can SSIs be treated? Antibiotics are used to treat SSI. Some patients may need another surgery to treat the infection. The doctor will discuss treatment options with you. What are some of the things that hospitals are doing to prevent SSIs? Soap and water or alcohol hand rub are used before and after caring for each patient. Special soap is used to clean surgery workers hands and arms just before the surgery. Masks, gowns, gloves and hair covers are worn during the surgery to keep the area clean. Hair in the surgery area may be removed with clippers (not razors). A special soap that kills germs is used to clean the skin at the surgery site. Antibiotics may be given before the surgery starts. What can you do to prevent SSIs? Before surgery: You may be asked to shower or bathe with a special soap that kills germs the night before and the day of surgery. Use the soap as you were told. If you smoke, stop or cut down. Ask your doctor about ways to quit. Do not shave near where you will have surgery. Shaving can irritate the skin and make it easier to get and infection. After surgery: Be sure that the doctors and nurses clean their hands before and after touching you. Be sure your family and friends clean their hands before and after visiting you. Do not be afraid to remind them. * Care for your wound at home as told by your doctor or nurse * Call your doctor right away if you have fever, redness, increased pain, or drainage at the surgery site. Further questions? Contact the doctor, nurse or the Infection Prevention and Control department if you have any questions. PATIENT RIGHTS AND RESPONSIBILITIES As a patient at [facility], you have the right to: Receive medical care and be informed of who is taking care of you Be treated with dignity and respect Have a family member/account manager sales representative of choice and your physician notified of your admission Receive information and actively participate in decisions about your care and treatment Refuse care, treatment and services Decide who may provide your support and speak for you Access sikhism and spiritual services Participate in ethical issues and questions about your care Receive private and confidential care Have appropriate assessment and management of your pain Know guest visitation restrictions or limitations Have an advance directive Access protective services Consent or refuse to participate in research studies or production or recordings, films or other images Have resolution of your complaints Receive information of hospital charges and payment methods Patient/patient account manager sales representative responsibilities are to: Provide information about health status to facilitate care, treatment and services Follow the treatment, plan, keep appointments and speak up when you do not understand the plan Respect the rights of other patients and healthcare personnel Follow organizational rules and regulations that support quality care and a safe environment Fulfill financial obligations as promptly as possible documented in this encounter [facility] 04-03-2024 History of Present illness Narrative Images from the original note were not included. Wound Care Progress Note Patient: Donna Mathews Date of : 1960 Chief Compliant: Bilateral lower leg wounds, follow up SUBJECTIVE/HPI: Donna is a 63 y.o. female who presents to [facility] for evaluation of 2 ulcer(s) on the right and left lateral legs. Patient established with wound clinic on 02/14/2024. Current daily wound care includes: medi honey, copper alginate and PolyMem foam. Patient reports wounds are changed daily by nursing facility. [facility]. Reports wound care team at facility treat wounds daily. It appears as if the wounds of the result of her lateral lower legs resting on the support bars of her power chair. Patient states she is scheduled for a chair refitting. Scheduled surgical debridement canceled due to improvement in wound measurements. Patient states wound on right leg has been present for approximately 3 years. Wound on left leg recently reopened, history of pressure ulcers on right leg. States wound on left 3rd toe started a few days ago when she bumped into a piece of furniture Measurable wound changes: Decrease in bilateral lateral wound measurements 6.0 cm decrease in RLE calf circumference 1.0 cm increase in LLE calf circumference. Patient accompanied by: caregiver, patient arrives in a power wheelchair. Nutritional screen shows patient does take in three servings of protein per day. Patient does deny fever, chills, sweats, or other signs of infection. Prescribed antibiotics: none Today's reported Blood Sugar:N/A Lab Results Component Value Date HGBA1C 5.5 09/14/2022 HGBA1C 5.7 08/21/2021 Tobacco use: denied - never a smoker Contributing comorbid conditions: MS, nonambulatory, wheelchair dependent, end-stage renal disease, dialysis dependent Labs/Imaging/Cardiovascular: Patient's chart was reviewed for all available supporting documentation, laboratory results and radiographic examination. Patient Active Problem List Diagnosis Personal history of DVT (deep vein thrombosis) Closed fracture of femur with nonunion Charcot's arthropathy Anemia of chronic disease Chronic renal impairment, stage 4 (severe) ([facility]) End stage renal disease ([facility]) ESRD (end stage renal disease) ([facility]) Family history of MS (multiple sclerosis) Chronic indwelling Douglas catheter Leukocytosis Morbid obesity ([facility]) MS (multiple sclerosis) ([facility]) Traumatic ulcer of left lower extremity with fat layer exposed ([facility]) Traumatic ulcer of right lower extremity with fat layer exposed ([facility]) Dermatitis associated with moisture Lymphedema AV fistula stenosis ([facility]) Pseudoaneurysm following procedure ([facility]) Anxiety and depression Carpal tunnel syndrome Chronic back pain Congenital pes planus DDD (degenerative disc disease), lumbar Disturbance of skin sensation Enthesopathy of hip region Facet arthritis of lumbar region Lack of coordination Neurogenic bladder Numbness Osteoporosis Pain in limb Peripheral neuropathy Polyneuropathy Radicular pain Radiculopathy, lumbosacral region Ulnar nerve abnormality Chronic fatigue Debility Pressure injury of right calf, stage 3 ([facility]) Past Medical History: Diagnosis Date Anemia Anemia of chronic disease 08/30/[address] fistula stenosis ([facility]) 04/01/2023 Charcot's arthropathy 03/27/2013 Charcot's joint CHF (congestive heart failure) ([facility]) Chronic indwelling Douglas catheter 09/13/2022 Chronic kidney disease Chronic renal impairment, stage 4 (severe) ([facility]) 08/30/2022 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 Deep vein thrombosis ([facility]) RLE Dermatitis associated with moisture 09/14/2022 Diabetes mellitus type 2, controlled ([facility]) Dialysis patient ([facility]) End stage renal disease ([facility]) 09/05/2022 ESRD (end stage renal disease) ([facility]) 09/13/2022 Family history of MS (multiple sclerosis) 09/13/2022 GERD (gastroesophageal reflux disease) Hyperlipidemia Hypertension Leukocytosis 09/13/2022 Lymphedema Morbid obesity ([facility]) 09/13/2022 MS (multiple sclerosis) ([facility]) 09/13/2022 Multiple sclerosis ([facility]) Neuromuscular dysfunction of bladder Obesity Personal history of DVT (deep vein thrombosis) 09/29/2013 Stroke ([facility]) Tabes dorsalis Thrombocytopenia ([facility]) Traumatic ulcer of left lower extremity with fat layer exposed ([facility]) 09/14/2022 Traumatic ulcer of right lower extremity with fat layer exposed ([facility]) 09/14/2022 Past Surgical History: Procedure Laterality Date BARIATRIC SURGERY Catheter Placement N/A 09/07/2022 Performed by Angelique Mckinnon DO at [facility] CARDIAC CATH LABS CREATION ARTERIOVENOUS FISTULA UPPER EXTREMITY BRACHIAL CEPHALIC, EXPLORATION LEFT WRIST WITH REPAIR OF RADIAL ARTERY LEFT Left 10/31/2022 Performed by Braydon Rich MD at [facility] HEMODIALYSIS INPATIENT 05/31/2023 LIPECTOMY AVF Left 02/25/2023 Performed by Krystin Salcedo MD at [facility] Current Outpatient Medications Medication Sig Dispense Refill A/C/E/zinc ox/cupric ox/lutein (OCULAR VITAMINS ORAL) Take 1 tablet by mouth in the morning. acetaminophen (TYLENOL) 325 mg tablet Take 2 tablets (650 mg total) by mouth every 6 (six) hours as needed for pain. acidophilus-pectin, citrus 25 million cell -100 mg tablet Take 1 tablet by mouth daily with breakfast. atorvastatin (LIPITOR) 80 mg tablet Take 1 tablet (80 mg total) by mouth once daily at bedtime. azelastine (ASTELIN) 137 mcg (0.1 %) nasal spray Administer 1 spray into each nostril in the morning and 1 spray before bedtime. Use in each nostril as directed. B complex-vitamin C-folic acid (RENAL-LOLIS) 0.8 mg tablet Take 1 tablet by mouth in the morning. biotin 1 mg tablet Take 1 tablet (1 mg total) by mouth in the morning. bisacodyL (DULCOLAX) 5 mg EC tablet Take 1 tablet (5 mg total) by mouth daily as needed for constipation. 2 tablet 0 bisacodyL (DULCOLAX) 5 mg EC tablet Take 1 tablet (5 mg total) by mouth daily as needed for constipation. 4 tablet 0 calcium carbonate (OS-NAIMA) 500 mg elemental (1,250 mg) chewable tablet Chew 2 tablets (1,000 mg total) and swallow. Take Sat., , Sat (she takes the medication with her on dialysis day) calcium carbonate (TUMS) 200 mg elemental (500 mg) chewable tablet Chew 2 tablets (400 mg total) and swallow in the morning. carboxymethylcellulose sodium (ARTIFICIAL TEARS, [facility],) 1 % drops Administer 1 drop to both eyes in the morning and 1 drop before bedtime. carvediloL (COREG) 6.25 mg tablet Take 0.5 tablets (3.125 mg total) by mouth in the morning and 0.5 tablets (3.125 mg total) in the evening. Take with meals. cholecalciferol (VITAMIN D3) 1,000 units tablet Take 1 tablet (1,000 Units total) by mouth in the morning. (Patient taking differently: Take 4 tablets (4,000 Units total) by mouth in the morning.) 30 tablet 3 famotidine (PEPCID) 20 mg tablet Take 1 tablet (20 mg total) by mouth once daily at bedtime. famotidine (PEPCID) 20 mg tablet Take 1 tablet (20 mg total) by mouth Daily at 0700. Take on Sat, , Sat, , Sat lactulose (CHRONULAC) 10 gram/15 mL solution Take 30 mL (20 g total) by mouth daily as needed (constipation). LUTEIN ORAL Take 1 tablet by mouth in the morning. midodrine (PROAMATINE) 5 mg tablet Take 1 tablet (5 mg total) by mouth daily as needed (as needed for hypotension MID dialysis for SBP < 120). modafiniL (PROVIGIL) 100 mg tablet Take 1 tablet (100 mg total) by mouth in the morning. nut.tx.imp.renal fxn,lac-reduc (NEPRO CARB STEADY) 0.08 gram-1.8 kcal/mL liquid Take 237 fluid ounces by mouth daily after dinner. nystatin (MYCOSTATIN) powder Apply 1 Application topically in the morning and 1 Application before bedtime. OXcarbazepine (TRILEPTAL) 300 mg tablet Take 1 tablet (300 mg total) by mouth in the morning and 1 tablet (300 mg total) before bedtime. oxyCODONE (ROXICODONE) 5 mg immediate release tablet Take 0.5 tablets (2.5 mg total) by mouth every 6 (six) hours as needed for pain. polyethylene glycol (GLYCOLAX) 17 gram/dose powder Take 17 g by mouth in the morning. polyethylene glycol (GoLYTELY) 236-22.74-6.74 -5.86 gram solution Starting at noon on day prior to procedure, drink 8 ounces every 30 minutes until all gone or stools are clear. May add flavor packet. 4000 mL 0 polyethylene glycol (GoLYTELY) 236-22.74-6.74 -5.86 gram solution Starting at noon on day prior to procedure, drink 8 ounces every 30 minutes until all gone or stools are clear. May add flavor packet. 4000 mL 0 pregabalin (LYRICA) 75 mg capsule Take 1 capsule (75 mg total) by mouth once daily at bedtime. sennosides-docusate sodium (SENOKOT-S) 8.6-50 mg Take 1 tablet by mouth every 12 (twelve) hours as needed for constipation. sertraline (ZOLOFT) 25 mg tablet Take 1 tablet (25 mg total) by mouth in the morning. sevelamer (RENVELA) 800 mg tablet Take 3 tablets (2,400 mg total) by mouth in the morning and 3 tablets (2,400 mg total) at noon and 3 tablets (2,400 mg total) in the evening. Take with meals. sodium zirconium cyclosilicate (LOKELMA) 10 gram packet Take 10 g by mouth in the morning. trazodone HCl (TRAZODONE ORAL) Take 12.5 mg by mouth nightly. No current facility-administered medications for this visit. No Known Allergies Social Drivers of Health Food Insecurity: No Food Insecurity (03/20/2024) Hunger Screening Food Insecurity - Worry: Never True Food Insecurity - Inability: Never True Housing Instability: Low Risk (05/30/2023) Housing Instability Housing Instability: No Transportation Needs: No Transportation Needs (05/30/2023) PRAPARE - Transportation Lack of Transportation (Medical): No Lack of Transportation (Non-Medical): No Utility Difficulties: Not At Risk (05/30/2023) [facility] Utilities Threatened with loss of utilities: No Interpersonal Safety: Not At Risk (05/30/2023) Humiliation, Afraid, Rape, and Kick questionnaire Fear of Current or Ex-Partner: No Emotionally Abused: No Physically Abused: No Sexually Abused: No Financial Resource Strain: Low Risk (05/30/2023) Overall Financial Resource Strain (CARDIA) Difficulty of Paying Living Expenses: Not hard at all Childcare: Unknown (08/15/2018) Childcare Childcare: Unknown Recent Concern: Childcare - High Risk (06/04/2018) Childcare Childcare: Unknown Employment: Unknown (08/15/2018) Employment Employment: Unknown Recent Concern: Employment - High Risk (06/04/2018) Employment Employment: Unknown Purpose - Life: Unknown (03/22/2020) Purpose - Life Purpose and direction in life: Unknown Depression: Not at risk (05/30/2023) PHQ-2 PHQ-2 Score: 0 Alcohol Use: Not At Risk (05/30/2023) AUDIT-C Frequency of Alcohol Consumption: Monthly or less Average Number of Drinks: 1 or 2 Frequency of Binge Drinking: Never Tobacco Use: Low Risk (03/20/2024) Patient History Smoking Tobacco Use: Never Smokeless Tobacco Use: Never Passive Exposure: Not on file Social Connections: Not on file Physical Activity: Not on file Stress: Not on file The following portions of the patient's history were reviewed and updated as appropriate: allergies, current medications, past family history, past medical history, past social history, past surgical history, problem list, and medication reconciliation was completed including current medication and post discharge medication. Pain Scale: Pain Scale 0/10: 0 Review of Systems Constitutional: Negative. Negative for appetite change, chills and fever. HENT: Positive for hearing loss. Negative for trouble swallowing. Eyes: Negative. Respiratory: Negative. Negative for cough, shortness of breath and stridor. Cardiovascular: Positive for leg swelling. Negative for chest pain and palpitations. Gastrointestinal: Negative. Negative for abdominal distention, abdominal pain, nausea and vomiting. Genitourinary: Positive for difficulty urinating. Negative for dysuria, frequency and urgency. Musculoskeletal: Positive for arthralgias, back pain and gait problem. Skin: Positive for color change and wound. Neurological: Positive for numbness. Negative for weakness. Psychiatric/Behavioral: The patient is nervous/anxious. Objective: Physical Exam Nursing note reviewed. Constitutional: Appearance: She is well-developed. HENT: Head: Normocephalic and atraumatic. Mouth/Throat: Dentition: Abnormal dentition. Cardiovascular: Rate and Rhythm: Normal rate and regular rhythm. Heart sounds: No murmur heard. No friction rub. Comments: Right posterior tibial Doppler signal, monophasic Left posterior tibial Doppler signals, monophasic, week Bilateral lower extremity without pitting edema +stemmers sign bilaterally Bilateral lower extremities warm, dry scaly skin, hairless Pulmonary: Effort: No respiratory distress. Breath sounds: Normal breath sounds. No wheezing. Musculoskeletal: General: Normal range of motion. Cervical back: Normal range of motion. Skin: General: Skin is warm and dry. Neurological: Mental Status: She is alert and oriented to person, place, and time. Wound Assessment Wound 02/14/24 1 Calf Right;Right Lateral (Active) Wound Image 04/03/24918 Site Assessment Ransom;Red;Yellow 04/03/24918 Cecy-wound Assessment Blanchable erythema 04/03/24918 Shape Blocked 04/03/24918 Wound Length (cm) 10.1 cm 04/03/24918 Wound Width (cm) 1.4 cm 04/03/24918 Wound Surface Area (cm^2) 14.14 cm^2 04/03/24918 Wound Depth (cm) 0.3 cm 04/03/24918 Wound Volume (cm^3) 4.242 cm^3 04/03/24918 Change in Wound Size % 41.08 04/03/24918 Drainage Description Serosanguineous;Yellow;Stark 04/03/24918 Drainage Amount Small 04/03/24918 Treatments Cleansed with;Wound cleanser;Soak with;Vashe/Hypochlorous Acid 04/03/24918 Debridement Performed? N 04/03/24936 Dressing Type Foam;Gauze Rolled/Kerlix;Honey Dressing 04/03/24936 Dressing Changed New 04/03/24936 Dressing Status Clean;Dry;Intact 04/03/24936 Wound Bed Granulation (%) 50% to 75% 04/03/24918 Wound Bed Epithelium (%) < 25% 04/03/24918 Wound Bed Slough (%) < 25% 04/03/24918 Wound 02/14/24 3 Calf Left;Lateral (Active) Wound Image 04/03/24918 Site Assessment Red 04/03/24918 Cecy-wound Assessment Ransom;Blanchable erythema 04/03/24918 Wound Length (cm) 0.6 cm 04/03/24918 Wound Width (cm) 0.8 cm 04/03/24918 Wound Surface Area (cm^2) 0.48 cm^2 04/03/24918 Wound Depth (cm) 0.1 cm 04/03/24918 Wound Volume (cm^3) 0.048 cm^3 04/03/24918 Change in Wound Size % 90.48 04/03/24918 Drainage Description Serosanguineous;Yellow 04/03/24918 Drainage Amount Scant 04/03/24918 Treatments Cleansed with;Wound cleanser;Soak with;Vashe/Hypochlorous Acid 04/03/24918 Debridement Performed? N 04/03/24936 Dressing Type Foam;Gauze Rolled/Kerlix;Honey Dressing 04/03/24936 Dressing Changed New 04/03/24936 Dressing Status Clean;Dry;Intact 04/03/24936 Wound Bed Granulation (%) 100% 04/03/24918 Assessment/Plan/Education: 1. Pressure injury of right calf, stage 3 (CMS-HCC) 2. Pressure injury of left calf, stage 2 (CMS-HCC) Wash wounds daily mild soap and water Cover wounds with medi honey Cover with copper foam Secure with roll gauze Change daily Preventable Bundle Turn a minimum of every 2 hours while in bed. Therapeutic mattress and wheelchair cushion Pad and Protect bony prominences. Assess skin daily Patient instructed in Other: pressure ulcer care to left, right, outer, and calf. Short term goal: medical compliance intermediate teacher goal: wound closure Patient verbalize understanding of treatment regimen and the importance of adherence. Follow up in wound clinic in 4 weeks Instructed to contact wound clinic, PCP or ER should symptoms worsen. The patient was taught to watch for S/S of infection (redness, pus, pain, increased swelling, chills or fever) and to call the PCP or wound care clinic if such occurs. The patient was educated on offloading the area by avoiding direct pressure to the wound bed. Education as well as the pathophysiology of the disease process was provided on infection, edema, necrotic tissue and its relationship to nonhealing wounds. Education was also provided on treatment plan. Patient verbalized understanding. Total time spent was 19 minutes: Preparing to see the patient (e.g., review of tests) Obtaining and/or reviewing separately obtained history Performing a medically appropriate examination and/or evaluation Counseling and educating the patient/family/caregiver Ordering medications, tests, or procedures Referring and communicating with other health childcare aide (not separately reported) Documenting clinical information in the electronic or other health record - GINA THURMAN 04/03/24 9:45 AM Elidia Tierney APRN, MARYAM, CWS, DUC [facility]: [phone] GINA Thurman 02/17/24 [id number] GINA Thurman 02/28/24 1557 GINA Thurman 03/20/24 1438 GINA Thurman 04/03/24 [id number] documented in this encounter [employer] 04-03-2024 Instructions Eliza Gaston RN - 04/03/2024 9:00 AM EST Wound Management Treatment Plan [facility] Wound Location(s): right lateral calf, left lateral calf, Right third toe: healed 02/28/24 HOW TO CARE FOR YOUR WOUND: right lateral calf, left lateral calf The following should be performed Daily and as needed. STEP 1: Cleanse wound with Wound cleanser. Irrigate or rinse wound with NO IRRIGATION REQUIRED. STEP 2: Soak wound with NO SOAK REQUIRED STEP 3: Pack with NO PACKING REQUIRED STEP 4: Apply Medihoney to wound bed. STEP 5: Cover wound with foam STEP 6: Secure dressings with Roll gauze/Kerlix and Tape then precious wrap RIGHT THIRD POSTERIOR TOE: healed 02/28/24 -apply antibacterial ointment to healed area daily -cover with band aide - change daily ACTIVITY: Avoid direct pressure to wound(s) at all times and Reposition at least every 2 hours NUTRITION: High protein diet SKIN CARE: MAKE SURE TO PAD AND PROTECT PT'S FEET AND LEGS FROM RUBBING ON HER WHEELCHAIR. SWELLING CONTROL: Precious wraps to be applied first thing in the morning and removed at bedtime. right and left leg wrap from base of toes to just below the knee. May require more than one wrap per leg. ITEMS TO FOLLOW UP ON: -Xray of right lower leg completed. -appointment for vascular studies is 03/02/24 A wound culture was obtained at wound care clinic 02/14/24 Length Width Depth Wound 02/14/24 3 Calf Left;Lateral-Wound Length (cm): 0.6 cm Wound 02/14/24 1 Calf Right;Right Lateral-Wound Length (cm): 10.1 cm Wound 02/14/24 3 Calf Left;Lateral-Wound Width (cm): 0.8 cm Wound 02/14/24 1 Calf Right;Right Lateral-Wound Width (cm): 1.4 cm Wound 02/14/24 3 Calf Left;Lateral-Wound Depth (cm): 0.1 cm Wound 02/14/24 1 Calf Right;Right Lateral-Wound Depth (cm): 0.3 cm Wound drainage Type Description small Serosanguinous Stark, yellow, bloody documented in this encounter [facility] 03-23-2024 Miscellaneous Notes ----- Message from Dr. Kristine Murphy MD sent at 03/23/2024 11:27 AM EST ----- Regarding: Debridement Thank you Elidia. We will cancel her debridement. Please let me know if you have any issues in the future. Kasey/Emilie can you please remove from schedule. Thank you ----- Message ----- From: GINA Thurman Sent: 03/20/2024 2:28 PM EST To: Kristine Murphy MD Hi Dr. Murphy, I saw Donna Mathews today in wound clinic. The right lateral leg wound is much improved, The distal tunnel and high exudative portion of the wound has resolved. Surgical debridement may not needed? Please review Thank You, - GINA THURMAN 03/20/24 2:28 PM Patient was removed from Dr. Murphy's surgery schedule. Called Gage with [place] where patient resides and informed them of the debridement surgery being cancelled due to her wounds are improving and debridement is not needed at this time. Gage verbalized understanding. documented in this encounter [facility] 03-23-2024 Telephone encounter Note ----- Message from Dr. Kristine Murphy MD sent at 03/23/2024 11:27 AM EST ----- Regarding: Debridement Thank you Elidia. We will cancel her debridement. Please let me know if you have any issues in the future. Kasey/Emilie can you please remove from schedule. Thank you ----- Message ----- From: GINA Thurman Sent: 03/20/2024 2:28 PM EST To: Kristine Murphy MD Hi Dr. Murphy, I saw Donna Mathews today in wound clinic. The right lateral leg wound is much improved, The distal tunnel and high exudative portion of the wound has resolved. Surgical debridement may not needed? Please review Thank You, - ELIDIA TIERNEY, [employer] CUTTER OPERATOR 03/20/24 2:[address] [facility] 03-23-2024 Telephone encounter Note Patient was removed from Dr. Murphy's surgery schedule. Called Gage with [place] where patient resides and informed them of the debridement surgery being cancelled due to her wounds are improving and debridement is not needed at this time. Gage verbalized understanding. [facility] 03-20-2024 History of Present illness Narrative Images from the original note were not included. Wound Care Progress Note Patient: Donna Mathews Date of : 1960 Chief Compliant: Bilateral lower leg wounds, follow up SUBJECTIVE/HPI: Donna is a 63 y.o. female who presents to [facility] for evaluation of 2 ulcer(s) on the right and left lateral legs. Patient established with wound clinic on 02/14/2024. Current daily wound care includes: medi honey, copper alginate and PolyMem foam. Patient reports wounds are changed daily by nursing facility. [facility]. Reports wound care team at facility treat wounds daily. It appears as if the wounds of the result of her lateral lower legs resting on the support bars of her power chair. Patient states she is scheduled for a chair refitting. Vascular testing scheduled for 03/02/2024 General surgery consult for right lower leg surgical debridement. Surgery scheduled for 03/30/2023. In light of wound improvement surgical debridement likely not needed. Patient states wound on right leg has been present for approximately 3 years. Wound on left leg recently reopened, history of pressure ulcers on right leg. States wound on left 3rd toe started a few days ago when she bumped into a piece of furniture Measurable wound changes: Right leg wound increased wound measurement, left leg wound decreased wound measurement 7.8 cm decrease in RLE calf circumference 13.5 cm decrease in LLE calf circumference. Patient accompanied by: caregiver, patient arrives in a power wheelchair. Nutritional screen shows patient does take in three servings of protein per day. Patient does deny fever, chills, sweats, or other signs of infection. Prescribed antibiotics: none Today's reported Blood Sugar:N/A Lab Results Component Value Date HGBA1C 5.5 09/14/2022 HGBA1C 5.7 08/21/2021 Tobacco use: denied - never a smoker Contributing comorbid conditions:MS, nonambulatory, wheelchair dependent, end-stage renal disease, dialysis dependent Labs/Imaging/Cardiovascular: Patient's chart was reviewed for all available supporting documentation, laboratory results and radiographic examination. Patient Active Problem List Diagnosis Personal history of DVT (deep vein thrombosis) Closed fracture of femur with nonunion Charcot's arthropathy Anemia of chronic disease Chronic renal impairment, stage 4 (severe) ([facility]) End stage renal disease ([facility]) ESRD (end stage renal disease) ([facility]) Family history of MS (multiple sclerosis) Chronic indwelling Douglas catheter Leukocytosis Morbid obesity ([facility]) MS (multiple sclerosis) ([facility]) Traumatic ulcer of left lower extremity with fat layer exposed ([facility]) Traumatic ulcer of right lower extremity with fat layer exposed ([facility]) Dermatitis associated with moisture Lymphedema AV fistula stenosis ([facility]) Pseudoaneurysm following procedure ([facility]) Anxiety and depression Carpal tunnel syndrome Chronic back pain Congenital pes planus DDD (degenerative disc disease), lumbar Disturbance of skin sensation Enthesopathy of hip region Facet arthritis of lumbar region Lack of coordination Neurogenic bladder Numbness Osteoporosis Pain in limb Peripheral neuropathy Polyneuropathy Radicular pain Radiculopathy, lumbosacral region Ulnar nerve abnormality Chronic fatigue Debility Pressure injury of right calf, stage 3 ([facility]) Past Medical History: Diagnosis Date Anemia Anemia of chronic disease 08/30/20[address] fistula stenosis ([facility]) 04/01/2023 Charcot's arthropathy 03/27/2013 Charcot's joint CHF (congestive heart failure) ([facility]) Chronic indwelling Douglas catheter 09/13/2022 Chronic kidney disease Chronic renal impairment, stage 4 (severe) ([facility]) 08/30/2022 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 Deep vein thrombosis ([facility]) RLE Dermatitis associated with moisture 09/14/2022 Diabetes mellitus type 2, controlled ([facility]) Dialysis patient ([facility]) End stage renal disease ([facility]) 09/05/2022 ESRD (end stage renal disease) ([facility]) 09/13/2022 Family history of MS (multiple sclerosis) 09/13/2022 GERD (gastroesophageal reflux disease) Hyperlipidemia Hypertension Leukocytosis 09/13/2022 Lymphedema Morbid obesity ([facility]) 09/13/2022 MS (multiple sclerosis) ([facility]) 09/13/2022 Multiple sclerosis ([facility]) Neuromuscular dysfunction of bladder Obesity Personal history of DVT (deep vein thrombosis) 09/29/2013 Stroke ([facility]) Tabes dorsalis Thrombocytopenia ([facility]) Traumatic ulcer of left lower extremity with fat layer exposed ([facility]) 09/14/2022 Traumatic ulcer of right lower extremity with fat layer exposed ([facility]) 09/14/2022 Past Surgical History: Procedure Laterality Date BARIATRIC SURGERY Catheter Placement N/A 09/07/2022 Performed by Angelique Mckinnon DO at [facility] CARDIAC CATH LABS CREATION ARTERIOVENOUS FISTULA UPPER EXTREMITY BRACHIAL CEPHALIC, EXPLORATION LEFT WRIST WITH REPAIR OF RADIAL ARTERY LEFT Left 10/31/2022 Performed by Braydon Rich MD at [facility] HEMODIALYSIS INPATIENT 05/31/2023 LIPECTOMY AVF Left 02/25/2023 Performed by Krystin Salceod MD at [facility] Current Outpatient Medications Medication Sig Dispense Refill A/C/E/zinc ox/cupric ox/lutein (OCULAR VITAMINS ORAL) Take 1 tablet by mouth in the morning. acetaminophen (TYLENOL) 325 mg tablet Take 2 tablets (650 mg total) by mouth every 6 (six) hours as needed for pain. acidophilus-pectin, citrus 25 million cell -100 mg tablet Take 1 tablet by mouth daily with breakfast. atorvastatin (LIPITOR) 80 mg tablet Take 1 tablet (80 mg total) by mouth once daily at bedtime. azelastine (ASTELIN) 137 mcg (0.1 %) nasal spray Administer 1 spray into each nostril in the morning and 1 spray before bedtime. Use in each nostril as directed. B complex-vitamin C-folic acid (RENAL-LOLSI) 0.8 mg tablet Take 1 tablet by mouth in the morning. biotin 1 mg tablet Take 1 tablet (1 mg total) by mouth in the morning. bisacodyL (DULCOLAX) 5 mg EC tablet Take 1 tablet (5 mg total) by mouth daily as needed for constipation. 2 tablet 0 bisacodyL (DULCOLAX) 5 mg EC tablet Take 1 tablet (5 mg total) by mouth daily as needed for constipation. 4 tablet 0 calcium carbonate (OS-NAIMA) 500 mg elemental (1,250 mg) chewable tablet Chew 2 tablets (1,000 mg total) and swallow. Take Sat., , Sat (she takes the medication with her on dialysis day) calcium carbonate (TUMS) 200 mg elemental (500 mg) chewable tablet Chew 2 tablets (400 mg total) and swallow in the morning. carboxymethylcellulose sodium (ARTIFICIAL TEARS, CMC,) 1 % drops Administer 1 drop to both eyes in the morning and 1 drop before bedtime. carvediloL (COREG) 6.25 mg tablet Take 0.5 tablets (3.125 mg total) by mouth in the morning and 0.5 tablets (3.125 mg total) in the evening. Take with meals. cholecalciferol (VITAMIN D3) 1,000 units tablet Take 1 tablet (1,000 Units total) by mouth in the morning. (Patient taking differently: Take 4 tablets (4,000 Units total) by mouth in the morning.) 30 tablet 3 famotidine (PEPCID) 20 mg tablet Take 1 tablet (20 mg total) by mouth once daily at bedtime. famotidine (PEPCID) 20 mg tablet Take 1 tablet (20 mg total) by mouth Daily at 0700. Take on Sat, , Sat, , Sat lactulose (CHRONULAC) 10 gram/15 mL solution Take 30 mL (20 g total) by mouth daily as needed (constipation). LUTEIN ORAL Take 1 tablet by mouth in the morning. midodrine (PROAMATINE) 5 mg tablet Take 1 tablet (5 mg total) by mouth daily as needed (as needed for hypotension MID dialysis for SBP < 120). modafiniL (PROVIGIL) 100 mg tablet Take 1 tablet (100 mg total) by mouth in the morning. nut.tx.imp.renal fxn,lac-reduc (NEPRO CARB STEADY) 0.08 gram-1.8 kcal/mL liquid Take 237 fluid ounces by mouth daily after dinner. nystatin (MYCOSTATIN) powder Apply 1 Application topically in the morning and 1 Application before bedtime. OXcarbazepine (TRILEPTAL) 300 mg tablet Take 1 tablet (300 mg total) by mouth in the morning and 1 tablet (300 mg total) before bedtime. oxyCODONE (ROXICODONE) 5 mg immediate release tablet Take 0.5 tablets (2.5 mg total) by mouth every 6 (six) hours as needed for pain. polyethylene glycol (GLYCOLAX) 17 gram/dose powder Take 17 g by mouth in the morning. polyethylene glycol (GoLYTELY) 236-22.74-6.74 -5.86 gram solution Starting at noon on day prior to procedure, drink 8 ounces every 30 minutes until all gone or stools are clear. May add flavor packet. 4000 mL 0 polyethylene glycol (GoLYTELY) 236-22.74-6.74 -5.86 gram solution Starting at noon on day prior to procedure, drink 8 ounces every 30 minutes until all gone or stools are clear. May add flavor packet. 4000 mL 0 pregabalin (LYRICA) 75 mg capsule Take 1 capsule (75 mg total) by mouth once daily at bedtime. sennosides-docusate sodium (SENOKOT-S) 8.6-50 mg Take 1 tablet by mouth every 12 (twelve) hours as needed for constipation. sertraline (ZOLOFT) 25 mg tablet Take 1 tablet (25 mg total) by mouth in the morning. sevelamer (RENVELA) 800 mg tablet Take 3 tablets (2,400 mg total) by mouth in the morning and 3 tablets (2,400 mg total) at noon and 3 tablets (2,400 mg total) in the evening. Take with meals. sodium zirconium cyclosilicate (LOKELMA) 10 gram packet Take 10 g by mouth in the morning. trazodone HCl (TRAZODONE ORAL) Take 12.5 mg by mouth nightly. No current facility-administered medications for this visit. No Known Allergies Social Drivers of Health Food Insecurity: No Food Insecurity (03/20/2024) Hunger Screening Food Insecurity - Worry: Never True Food Insecurity - Inability: Never True Housing Instability: Low Risk (05/30/2023) Housing Instability Housing Instability: No Transportation Needs: No Transportation Needs (05/30/2023) PRAPARE - Transportation Lack of Transportation (Medical): No Lack of Transportation (Non-Medical): No Utility Difficulties: Not At Risk (05/30/2023) [facility] Utilities Threatened with loss of utilities: No Interpersonal Safety: Not At Risk (05/30/2023) Humiliation, Afraid, Rape, and Kick questionnaire Fear of Current or Ex-Partner: No Emotionally Abused: No Physically Abused: No Sexually Abused: No Financial Resource Strain: Low Risk (05/30/2023) Overall Financial Resource Strain (CARDIA) Difficulty of Paying Living Expenses: Not hard at all Childcare: Unknown (08/15/2018) Childcare Childcare: Unknown Recent Concern: Childcare - High Risk (06/04/2018) Childcare Childcare: Unknown Employment: Unknown (08/15/2018) Employment Employment: Unknown Recent Concern: Employment - High Risk (06/04/2018) Employment Employment: Unknown Purpose - Life: Unknown (03/22/2020) Purpose - Life Purpose and direction in life: Unknown Depression: Not at risk (05/30/2023) PHQ-2 PHQ-2 Score: 0 Alcohol Use: Not At Risk (05/30/2023) AUDIT-C Frequency of Alcohol Consumption: Monthly or less Average Number of Drinks: 1 or 2 Frequency of Binge Drinking: Never Tobacco Use: Low Risk (03/06/2024) Patient History Smoking Tobacco Use: Never Smokeless Tobacco Use: Never Passive Exposure: Not on file Social Connections: Not on file Physical Activity: Not on file Stress: Not on file The following portions of the patient's history were reviewed and updated as appropriate: allergies, current medications, past family history, past medical history, past social history, past surgical history, problem list, and medication reconciliation was completed including current medication and post discharge medication. Pain Scale: Pain Scale 0/10: Unable to rate Review of Systems Constitutional: Negative. Negative for appetite change, chills and fever. HENT: Positive for hearing loss. Negative for trouble swallowing. Eyes: Negative. Respiratory: Negative. Negative for cough, shortness of breath and stridor. Cardiovascular: Positive for leg swelling. Negative for chest pain and palpitations. Gastrointestinal: Negative. Negative for abdominal distention, abdominal pain, nausea and vomiting. Genitourinary: Positive for difficulty urinating. Negative for dysuria, frequency and urgency. Musculoskeletal: Positive for arthralgias, back pain and gait problem. Skin: Positive for color change and wound. Neurological: Positive for numbness. Negative for weakness. Psychiatric/Behavioral: The patient is nervous/anxious. Objective: Vitals: 03/20/24 1337 BP: 119/78 Pulse: 103 Resp: 16 Temp: 37 C (98.6 F) Physical Exam Vitals and nursing note reviewed. Constitutional: Appearance: She is well-developed. HENT: Head: Normocephalic and atraumatic. Mouth/Throat: Dentition: Abnormal dentition. Cardiovascular: Rate and Rhythm: Regular rhythm. Tachycardia present. Heart sounds: No murmur heard. No friction rub. Comments: Right dorsalis pedis unable to locate Right posterior tibial Doppler signal, monophasic Left dorsalis pedis unable to locate with Doppler Left posterior tibial Doppler signals, monophasic, week Bilateral lower extremity without pitting edema +stemmers sign bilaterally Bilateral lower extremities warm, dry scaly skin, hairless Pulmonary: Effort: No respiratory distress. Breath sounds: Normal breath sounds. No wheezing. Musculoskeletal: General: Normal range of motion. Cervical back: Normal range of motion. Skin: General: Skin is warm and dry. Neurological: Mental Status: She is alert and oriented to person, place, and time. Wound Assessment Wound 02/14/24 1 Calf Right;Right Lateral (Active) Wound Image Pre debridement Post debridement 03/20/24 1405 Site Assessment Red;Ransom;Yellow 03/20/24 1343 Cecy-wound Assessment Blanchable erythema 03/20/24 1343 Shape blocked 03/20/24 1343 Wound Length (cm) 10.2 cm 03/20/24 1343 Wound Width (cm) 1.4 cm 03/20/24 1343 Wound Surface Area (cm^2) 14.28 cm^2 03/20/24 134 Wound Depth (cm) 0.5 cm 03/20/241342 Wound Volume (cm^3) 7.14 cm^3 03/20/241342 Change in Wound Size % 40.5 03/20/24 134 Drainage Description Stark;Yellow;Serosanguineous 03/20/241342 Drainage Amount Moderate 03/20/241342 Treatments Cleansed with;Wound cleanser;Soak with;Vashe/Hypochlorous Acid 03/20/24 134 Debridement Performed? Y 03/20/241404 Type of Debridement Sharp to Subcutaneous 03/20/241404 Dressing Type Honey Dressing;Vaseline gauze;Copper Dressing;Abdominal dressing;Gauze Rolled/Kerlix 03/20/241404 Dressing Changed Changed 03/20/241404 Dressing Status Clean;Dry;Intact 03/20/241404 Wound Bed Granulation (%) 50% to 75% 03/20/241342 Wound Bed Epithelium (%) < 25% 03/20/241342 Wound Bed Slough (%) 25% to 50% 03/20/241342 Tunneling 1 (cm) 0 cm 03/20/241342 Wound 02/14/24 3 Calf Left;Lateral (Active) Wound Image 03/20/241342 Site Assessment Yellow;Red 03/20/241342 Cecy-wound Assessment Blanchable erythema 03/20/241342 Shape one open wound 03/20/241342 Wound Length (cm) 1 cm 03/20/241342 Wound Width (cm) 9.5 cm 03/20/241342 Wound Surface Area (cm^2) 9.5 cm^2 03/20/241342 Wound Depth (cm) 0.1 cm 03/20/241342 Wound Volume (cm^3) 0.95 cm^3 03/20/241342 Change in Wound Size % -88.49 03/20/24 134 Drainage Description Sanguineous 03/20/241342 Drainage Amount Small 03/20/241342 Treatments Cleansed with;Wound cleanser;Soak with;Vashe/Hypochlorous Acid 03/20/24 134 Debridement Performed? N 03/20/241342 Dressing Type Honey Dressing;Vaseline gauze;Copper Dressing;Gauze Rolled/Kerlix 03/20/24 134 Dressing Changed Changed 03/20/24 134 Dressing Status Clean;Dry;Intact 03/20/24 1343 Wound Bed Granulation (%) 25% to 50% 03/20/24 1343 Wound Bed Slough (%) 50% to 75% 03/20/24 1343 Discussion: Debridement is the removal of foreign material and/or devitalized tissue until healthy tissue is exposed. Risks, benefits and alternatives were discussed with the patient. We discussed possible complications, including infection and bleeding. Written consent was obtained prior to the procedure. Timeout procedure completed. Goal of debridement includes: removal of devitalized tissue, decrease risk of infection, promote wound healing and prevent further complications. Procedure: Debridement/Procedure Level: Removal of devitalized tissue, nonviable tissue and/or infection. Sub-q/Tissue right lateral calf Instrument Used: Adson, Curette, and Scissors Anesthesia dermoplast Bleeding: Large Bleeding Control: Pressure Added Pain Control: Benzocaine 20% spray Specimen Taken: None Total Surface Area of Debridement: 14.28 cm2 Patient tolerates procedure well Assessment/Plan/Education: 1. Pressure injury of right calf, stage 3 (CMS-HCC) 2. 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 Lymphedema Wash wounds daily mild soap and water Cover wounds with medi honey Cover with copper alginate Cover with ABD Secure with roll gauze Change daily Preventable Bundle Turn a minimum of every 2 hours while in bed. Therapeutic mattress and wheelchair cushion Pad and Protect bony prominences. Assess skin daily Dr. Murphy notified of improvement in wound. Patient instructed in Other: pressure ulcer care to left, right, outer, and calf. Short term goal: medical compliance prison goal: wound closure Patient verbalize understanding of treatment regimen and the importance of adherence. Follow up in wound clinic in 2 weeks Instructed to contact wound clinic, PCP or ER should symptoms worsen. The patient was taught to watch for S/S of infection (redness, pus, pain, increased swelling, chills or fever) and to call the PCP or wound care clinic if such occurs. The patient was educated on offloading the area by avoiding direct pressure to the wound bed. Education as well as the pathophysiology of the disease process was provided on infection, edema, necrotic tissue and its relationship to nonhealing wounds. Education was also provided on treatment plan. Patient verbalized understanding. Total time spent was 20 minutes: Preparing to see the patient (e.g., review of tests) Obtaining and/or reviewing separately obtained history Performing a medically appropriate examination and/or evaluation Counseling and educating the patient/family/caregiver Ordering medications, tests, or procedures Referring and communicating with other health childcare aide (not separately reported) Documenting clinical information in the electronic or other health record - GINA THURMAN 03/20/24 2:18 PM Elidia Tierney APRN, MARYAM, CWS, DUC [facility]: [phone] GINA Thurman 02/17/24 1109 GINA Thurman 02/28/24 [id number] GINA Thurman 03/20/24 [id number] documented in this encounter [facility] 03-20-2024 Instructions Niharika Moss RN - 03/20/2024 1:20 PM EST Wound Management [facility] Location(s): right lateral calf, left lateral calf, Right third toe: healed 02/28/24 HOW TO CARE FOR YOUR WOUND: right lateral calf, left lateral calf The following should be performed Daily and as needed. STEP 1: Cleanse wound with Wound cleanser. Irrigate or rinse wound with NO IRRIGATION REQUIRED. STEP 2: Soak wound with NO SOAK REQUIRED STEP 3: Pack with NO PACKING REQUIRED STEP 4: Apply Medihoney to wound bed. STEP 5: Cover wound with Vaseline gauze, then Copper dressing, and cover with an elastic bandage. STEP 6: Secure dressings with Roll gauze/Kerlix and Tape RIGHT THIRD POSTERIOR TOE: healed 02/28/24 -apply antibacterial ointment to healed area daily -cover with band aide - change daily ACTIVITY: Avoid direct pressure to wound(s) at all times and Reposition at least every 2 hours NUTRITION: High protein diet SKIN CARE: MAKE SURE TO PAD AND PROTECT PT'S FEET AND LEGS FROM RUBBING ON HER WHEELCHAIR. SWELLING CONTROL: Precious wraps to be applied first thing in the morning and removed at bedtime. right and left leg wrap from base of toes to just below the knee. May require more than one wrap per leg. ITEMS TO FOLLOW UP ON: -Xray of right lower leg completed. -appointment for vascular studies is 03/02/24 A wound culture was obtained at wound care clinic 02/14/24 Length Width Depth Wound drainage Type Description large Serosanguinous Stark, yellow, bloody documented in this encounter [employer] 03-13-2024 Miscellaneous Notes Preoperative Education Checklist- General Surgery date: 03/16/24 Surgery time: 944 Arrival time: 45 1. Bring a photo ID and your insurance card with you the day of surgery. You will check in at the main lobby of the [facility]- registration desk is straight ahead as soon as you walk in. Tell them you are here for surgery. 2. If you have a Living Will/Durable Power of Exceptional Student Education Teacher for Health Care that is not on file here, please bring a copy the day of surgery. 3. Please shower/bathe the night before surgery with the provided soap or wipes. Do not shower the morning of surgery- you will do use wipes when you arrive here at the hospital before getting into your surgical gown. Do not shave the area of your procedure for 2 days prior to your surgery. 4. NO powder, lotion, perfume/cologne, aftershave, make-up, deodorant, or hair products after you have bathed. 5. NO nail cypriot/acrylic on at least one finger. If you are having a hand, wrist or foot surgery then all nail cypriot and artificial/acrylic nails must be removed from that hand or foot. 6. Avoid ALL Aspirin and non-steroidal anti-inflammatory drugs and certain vitamins (Ibuprofen, Advil, Aleve, Excedrin, Meloxicam, Celebrex, fish/krill oil, etc.) for 7 days prior to surgery as instructed by your surgeon and/or your prescribing doctor. Tylenol IS ALLOWED. If you are on Ticlid, Xarelto, Eliquis, Pradaxa, Plavix or Coumadin, please check with your prescribing doctor for instructions for when to stop them. 7. If you use an inhaler, continue to use it routinely. 8. Nothing to eat or drink (not even water, gum, mints, or hard candy!) AFTER midnight prior to your surgery. 9. Take only medications that you are instructed to on the morning of surgery with a TINY SIP OF WATER. 10. Choose a responsible adult that will be able to drive you home when you are discharged from your hospital stay for your surgery and can stay with you in your home for 24 hours after your procedure. You must NOT drive any vehicle or operate any machinery for 24 hours after surgery. 11. When you dress for your appointment, please wear loose fitting clothing that is appropriate to accommodate your surgical area procedure. BRING WITH YOU ANY DEVICES YOU MAY NEED: ROSA hose, ice machine, sling/swath, brace or special shoe, oversized zip-up or button up shirt, CPAP machine if staying overnight. 12. Do NOT wear jewelry, watches, or any piercings or metal for surgery- leave these valuables and money at home. 13. Do NOT wear contact lenses for surgery- glasses are okay if needed. 14. The anesthesiologist will talk with you the day of surgery and will ask you to sign a Consent Form. 15. Refrain from smoking or any type of tobacco use for at least 8 hours and marijuana for 24 hours prior to arrival for your surgery. 16. If a GREEN BLOOD band is given to you, please bring it with you for the day of surgery. 17. Notify your surgeon if you develop any illness before your surgery. 18. If you are staying overnight, please DO NOT BRING your home medications with you. 19. If you have any questions prior to surgery, please call the Preadmission Testing office at [phone], Mon.-Fri. 7 a.m.-3 p.m. Leave a voicemail if needed. Pre-Surgery Instructions: Medication Instructions A/C/E/zinc ox/cupric ox/lutein (OCULAR VITAMINS ORAL) Stop taking 0 days prior to procedure acetaminophen (TYLENOL) 325 mg tablet Stop taking 0 days prior to procedure acidophilus-pectin, citrus 25 million cell -100 mg tablet Stop taking 0 days prior to procedure atorvastatin (LIPITOR) 80 mg tablet Stop taking 0 days prior to procedure azelastine (ASTELIN) 137 mcg (0.1 %) nasal spray Stop taking 0 days prior to procedure B complex-vitamin C-folic acid (RENAL-LOLIS) 0.8 mg tablet Stop taking 0 days prior to procedure biotin 1 mg tablet Stop taking 0 days prior to procedure bisacodyL (DULCOLAX) 5 mg EC tablet Stop taking 0 days prior to procedure calcium carbonate (OS-NAIMA) 500 mg elemental (1,250 mg) chewable tablet Stop taking 0 days prior to procedure calcium carbonate (TUMS) 200 mg elemental (500 mg) chewable tablet Stop taking 0 days prior to procedure carboxymethylcellulose sodium (ARTIFICIAL TEARS, CMC,) 1 % drops Stop taking 0 days prior to procedure carvediloL (COREG) 6.25 mg tablet Take morning of procedure cholecalciferol (VITAMIN D3) 1,000 units tablet Stop taking 0 days prior to procedure famotidine (PEPCID) 20 mg tablet Take morning of procedure famotidine (PEPCID) 20 mg tablet Stop taking 0 days prior to procedure lactulose (CHRONULAC) 10 gram/15 mL solution Stop taking 0 days prior to procedure LUTEIN ORAL Stop taking 0 days prior to procedure midodrine (PROAMATINE) 5 mg tablet Take morning of procedure if needed modafiniL (PROVIGIL) 100 mg tablet Stop taking 0 days prior to procedure nut.tx.imp.renal fxn,lac-reduc (NEPRO CARB STEADY) 0.08 gram-1.8 kcal/mL liquid Stop taking 0 days prior to procedure nystatin (MYCOSTATIN) powder Stop taking 0 days prior to procedure OXcarbazepine (TRILEPTAL) 300 mg tablet Take morning of procedure oxyCODONE (ROXICODONE) 5 mg immediate release tablet Stop taking 0 days prior to procedure polyethylene glycol (GLYCOLAX) 17 gram/dose powder Stop taking 0 days prior to procedure polyethylene glycol (GoLYTELY) 236-22.74-6.74 -5.86 gram solution Stop taking 0 days prior to procedure pregabalin (LYRICA) 75 mg capsule Stop taking 0 days prior to procedure sennosides-docusate sodium (SENOKOT-S) 8.6-50 mg Stop taking 0 days prior to procedure sertraline (ZOLOFT) 25 mg tablet Stop taking 0 days prior to procedure sevelamer (RENVELA) 800 mg tablet Stop taking 0 days prior to procedure sodium zirconium cyclosilicate (LOKELMA) 10 gram packet Stop taking 0 days prior to procedure trazodone HCl (TRAZODONE ORAL) Stop taking 0 days prior to procedure documented in this encounter [facility] 03-13-2024 Nurse Note Preoperative Education Checklist- General Surgery date: 03/16/24 Surgery time: 944 Arrival time: 744 1. Bring a photo ID and your insurance card with you the day of surgery. You will check in at the main lobby of the [facility]- registration desk is straight ahead as soon as you walk in. Tell them you are here for surgery. 2. If you have a Living Will/Durable Power of Exceptional Student Education Teacher for Health Care that is not on file here, please bring a copy the day of surgery. 3. Please shower/bathe the night before surgery with the provided soap or wipes. Do not shower the morning of surgery- you will do use wipes when you arrive here at the hospital before getting into your surgical gown. Do not shave the area of your procedure for 2 days prior to your surgery. 4. NO powder, lotion, perfume/cologne, aftershave, make-up, deodorant, or hair products after you have bathed. 5. NO nail cypriot/acrylic on at least one finger. If you are having a hand, wrist or foot surgery then all nail cypriot and artificial/acrylic nails must be removed from that hand or foot. 6. Avoid ALL Aspirin and non-steroidal anti-inflammatory drugs and certain vitamins (Ibuprofen, Advil, Aleve, Excedrin, Meloxicam, Celebrex, fish/krill oil, etc.) for 7 days prior to surgery as instructed by your surgeon and/or your prescribing doctor. Tylenol IS ALLOWED. If you are on Ticlid, Xarelto, Eliquis, Pradaxa, Plavix or Coumadin, please check with your prescribing doctor for instructions for when to stop them. 7. If you use an inhaler, continue to use it routinely. 8. Nothing to eat or drink (not even water, gum, mints, or hard candy!) AFTER midnight prior to your surgery. 9. Take only medications that you are instructed to on the morning of surgery with a TINY SIP OF WATER. 10. Choose a responsible adult that will be able to drive you home when you are discharged from your hospital stay for your surgery and can stay with you in your home for 24 hours after your procedure. You must NOT drive any vehicle or operate any machinery for 24 hours after surgery. 11. When you dress for your appointment, please wear loose fitting clothing that is appropriate to accommodate your surgical area procedure. BRING WITH YOU ANY DEVICES YOU MAY NEED: ROSA hose, ice machine, sling/swath, brace or special shoe, oversized zip-up or button up shirt, CPAP machine if staying overnight. 12. Do NOT wear jewelry, watches, or any piercings or metal for surgery- leave these valuables and money at home. 13. Do NOT wear contact lenses for surgery- glasses are okay if needed. 14. The anesthesiologist will talk with you the day of surgery and will ask you to sign a Consent Form. 15. Refrain from smoking or any type of tobacco use for at least 8 hours and marijuana for 24 hours prior to arrival for your surgery. 16. If a GREEN BLOOD band is given to you, please bring it with you for the day of surgery. 17. Notify your surgeon if you develop any illness before your surgery. 18. If you are staying overnight, please DO NOT BRING your home medications with you. 19. If you have any questions prior to surgery, please call the Preadmission Testing office at [phone], Mon.-Fri. 7 a.m.-3 p.m. Leave a voicemail if needed. Pre-Surgery Instructions: Medication Instructions A/C/E/zinc ox/cupric ox/lutein (OCULAR VITAMINS ORAL) Stop taking 0 days prior to procedure acetaminophen (TYLENOL) 325 mg tablet Stop taking 0 days prior to procedure acidophilus-pectin, citrus 25 million cell -100 mg tablet Stop taking 0 days prior to procedure atorvastatin (LIPITOR) 80 mg tablet Stop taking 0 days prior to procedure azelastine (ASTELIN) 137 mcg (0.1 %) nasal spray Stop taking 0 days prior to procedure B complex-vitamin C-folic acid (RENAL-LOLIS) 0.8 mg tablet Stop taking 0 days prior to procedure biotin 1 mg tablet Stop taking 0 days prior to procedure bisacodyL (DULCOLAX) 5 mg EC tablet Stop taking 0 days prior to procedure calcium carbonate (OS-NAIMA) 500 mg elemental (1,250 mg) chewable tablet Stop taking 0 days prior to procedure calcium carbonate (TUMS) 200 mg elemental (500 mg) chewable tablet Stop taking 0 days prior to procedure carboxymethylcellulose sodium (ARTIFICIAL TEARS, CMC,) 1 % drops Stop taking 0 days prior to procedure carvediloL (COREG) 6.25 mg tablet Take morning of procedure cholecalciferol (VITAMIN D3) 1,000 units tablet Stop taking 0 days prior to procedure famotidine (PEPCID) 20 mg tablet Take morning of procedure famotidine (PEPCID) 20 mg tablet Stop taking 0 days prior to procedure lactulose (CHRONULAC) 10 gram/15 mL solution Stop taking 0 days prior to procedure LUTEIN ORAL Stop taking 0 days prior to procedure midodrine (PROAMATINE) 5 mg tablet Take morning of procedure if needed modafiniL (PROVIGIL) 100 mg tablet Stop taking 0 days prior to procedure nut.tx.imp.renal fxn,lac-reduc (NEPRO CARB STEADY) 0.08 gram-1.8 kcal/mL liquid Stop taking 0 days prior to procedure nystatin (MYCOSTATIN) powder Stop taking 0 days prior to procedure OXcarbazepine (TRILEPTAL) 300 mg tablet Take morning of procedure oxyCODONE (ROXICODONE) 5 mg immediate release tablet Stop taking 0 days prior to procedure polyethylene glycol (GLYCOLAX) 17 gram/dose powder Stop taking 0 days prior to procedure polyethylene glycol (GoLYTELY) 236-22.74-6.74 -5.86 gram solution Stop taking 0 days prior to procedure pregabalin (LYRICA) 75 mg capsule Stop taking 0 days prior to procedure sennosides-docusate sodium (SENOKOT-S) 8.6-50 mg Stop taking 0 days prior to procedure sertraline (ZOLOFT) 25 mg tablet Stop taking 0 days prior to procedure sevelamer (RENVELA) 800 mg tablet Stop taking 0 days prior to procedure sodium zirconium cyclosilicate (LOKELMA) 10 gram packet Stop taking 0 days prior to procedure trazodone HCl (TRAZODONE ORAL) Stop taking 0 [address] procedure [facility] 03-13-2024 Miscellaneous Notes Golytely - 2 Day prep documented in this encounter [facility] 03-13-2024 Telephone encounter Note Golytely - [address] [facility] 03-09-2024 Telephone encounter Note Requested Prescriptions Signed Prescriptions Disp Refills oxyCODONE (Roxicodone) 5 MG immediate release tablet 120 tablet 0 Sig: Take 1 tablet (5 mg) by mouth every 6 (six) hours if needed for severe pain Authorizing Provider: CM MATHEWS This is a [facility] patient. Refill is sent today. [facility] 03-09-2024 Miscellaneous Notes Requested Prescriptions Signed Prescriptions Disp Refills oxyCODONE (Roxicodone) 5 MG immediate release tablet 120 tablet 0 Sig: Take 1 tablet (5 mg) by mouth every 6 (six) hours if needed for severe pain Authorizing Provider: CM MATHEWS This is a [facility] patient. Refill is sent today. documented in this encounter [facility] 03-05-2024 History of Present illness Narrative Images from the original note were not included. Chief Complaint: Right leg wound History of Present Illness: Donna Mathews is a 63 y.o. female to the office with a right lateral leg wound. [facility]. Of her legs resting on the support bars of her wheelchair. Leg wound has been there for at least 3 years. Right leg wound is long, copious yellow drainage, foul smelling, tunnels inferiorly. She is here to be evaluated for possible debridement. HPI Review of Systems Constitutional: Negative for fever and chills. Respiratory: Negative for shortness of breath. Cardiovascular: Negative for chest pain and palpitations. Gastrointestinal: Negative for nausea, vomiting and abdominal pain. Genitourinary: Negative for dysuria and difficulty urinating. Skin: Negative for rash and wound. Allergic/Immunologic: Negative for immunocompromised state. Neurological: Positive for weakness. Negative for light-headedness. Multiple sclerosis Hematological: Does not bruise/bleed easily. Psychiatric/Behavioral: Negative for behavioral problems and confusion. Past Medical History: Diagnosis Date Anemia Anemia of chronic disease 08/30/2022 Anxiety AV fistula stenosis ([facility]) 04/01/2023 Charcot's arthropathy 03/27/2013 Charcot's joint CHF (congestive heart failure) ([facility]) Chronic indwelling Douglas catheter 09/13/2022 Chronic kidney disease Chronic renal impairment, stage 4 (severe) ([facility]) 08/30/2022 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 Deep vein thrombosis ([facility]) RLE Dermatitis associated with moisture 09/14/2022 Diabetes mellitus type 2, controlled ([facility]) Dialysis patient ([facility]) End stage renal disease ([facility]) 09/05/2022 ESRD (end stage renal disease) ([facility]) 09/13/2022 Family history of MS (multiple sclerosis) 09/13/2022 GERD (gastroesophageal reflux disease) Hyperlipidemia Hypertension Leukocytosis 09/13/2022 Lymphedema Morbid obesity ([facility]) 09/13/2022 MS (multiple sclerosis) ([facility]) 09/13/2022 Multiple sclerosis ([facility]) Neuromuscular dysfunction of bladder Obesity Personal history of DVT (deep vein thrombosis) 09/29/2013 Stroke ([facility]) Tabes dorsalis Thrombocytopenia ([facility]) Traumatic ulcer of left lower extremity with fat layer exposed ([facility]) 09/14/2022 Traumatic ulcer of right lower extremity with fat layer exposed ([facility]) 09/14/2022 Past Surgical History: Procedure Laterality Date BARIATRIC SURGERY Catheter Placement N/A 09/07/2022 Performed by Angelique Mckinnon DO at [facility] CARDIAC CATH LABS CREATION ARTERIOVENOUS FISTULA UPPER EXTREMITY BRACHIAL CEPHALIC, EXPLORATION LEFT WRIST WITH REPAIR OF RADIAL ARTERY LEFT Left 10/31/2022 Performed by Braydon Rich MD at [facility] HEMODIALYSIS INPATIENT 05/31/2023 LIPECTOMY AVF Left 02/25/2023 Performed by Krystin Salcedo MD at [facility] No Known Allergies Current Outpatient Medications: A/C/E/zinc ox/cupric ox/lutein (OCULAR VITAMINS ORAL), Take 1 tablet by mouth in the morning., Disp: , Rfl: acetaminophen (TYLENOL) 325 mg tablet, Take 2 tablets (650 mg total) by mouth every 6 (six) hours as needed for pain., Disp: , Rfl: acidophilus-pectin, citrus 25 million cell -100 mg tablet, Take 1 tablet by mouth daily with breakfast., Disp: , Rfl: atorvastatin (LIPITOR) 80 mg tablet, Take 1 tablet (80 mg total) by mouth once daily at bedtime., Disp: , Rfl: azelastine (ASTELIN) 137 mcg (0.1 %) nasal spray, Administer 1 spray into each nostril in the morning and 1 spray before bedtime. Use in each nostril as directed., Disp: , Rfl: B complex-vitamin C-folic acid (RENAL-LOLIS) 0.8 mg tablet, Take 1 tablet by mouth in the morning., Disp: , Rfl: biotin 1 mg tablet, Take 1 tablet (1 mg total) by mouth in the morning., Disp: , Rfl: bisacodyL (DULCOLAX) 5 mg EC tablet, Take 1 tablet (5 mg total) by mouth daily as needed for constipation., Disp: 2 tablet, Rfl: 0 calcium carbonate (OS-NAIMA) 500 mg elemental (1,250 mg) chewable tablet, Chew 2 tablets (1,000 mg total) and swallow. Take Sat., , Sat (she takes the medication with her on dialysis day), Disp: , Rfl: calcium carbonate (TUMS) 200 mg elemental (500 mg) chewable tablet, Chew 2 tablets (400 mg total) and swallow in the morning., Disp: , Rfl: carboxymethylcellulose sodium (ARTIFICIAL TEARS, CMC,) 1 % drops, Administer 1 drop to both eyes in the morning and 1 drop before bedtime., Disp: , Rfl: carvediloL (COREG) 6.25 mg tablet, Take 0.5 tablets (3.125 mg total) by mouth in the morning and 0.5 tablets (3.125 mg total) in the evening. Take with meals., Disp: , Rfl: cholecalciferol (VITAMIN D3) 1,000 units tablet, Take 1 tablet (1,000 Units total) by mouth in the morning. (Patient taking differently: Take 4 tablets (4,000 Units total) by mouth in the morning.), Disp: 30 tablet, Rfl: 3 famotidine (PEPCID) 20 mg tablet, Take 1 tablet (20 mg total) by mouth once daily at bedtime., Disp: , Rfl: famotidine (PEPCID) 20 mg tablet, Take 1 tablet (20 mg total) by mouth Daily at 0700. Take on Mon, , Sat, , Fri, Disp: , Rfl: lactulose (CHRONULAC) 10 gram/15 mL solution, Take 30 mL (20 g total) by mouth daily as needed (constipation)., Disp: , Rfl: LUTEIN ORAL, Take 1 tablet by mouth in the morning., Disp: , Rfl: menthol (BIOFREEZE, MENTHOL,) 4 % gel, Apply 1 Application topically every 8 (eight) hours as needed (pain)., Disp: , Rfl: midodrine (PROAMATINE) 10 mg tablet, Take 1 tablet (10 mg total) by mouth 3 (three) times a day., Disp: , Rfl: midodrine (PROAMATINE) 5 mg tablet, Take 1 tablet (5 mg total) by mouth daily as needed (as needed for hypotension MID dialysis for SBP < 120)., Disp: , Rfl: modafiniL (PROVIGIL) 100 mg tablet, Take 1 tablet (100 mg total) by mouth in the morning., Disp: , Rfl: nut.tx.imp.renal fxn,lac-reduc (NEPRO CARB STEADY) 0.08 gram-1.8 kcal/mL liquid, Take 237 fluid ounces by mouth daily after dinner., Disp: , Rfl: nystatin (MYCOSTATIN) powder, Apply 1 Application topically in the morning and 1 Application before bedtime., Disp: , Rfl: OXcarbazepine (TRILEPTAL) 300 mg tablet, Take 1 tablet (300 mg total) by mouth in the morning and 1 tablet (300 mg total) before bedtime., Disp: , Rfl: oxyCODONE (ROXICODONE) 5 mg immediate release tablet, Take 0.5 tablets (2.5 mg total) by mouth every 6 (six) hours as needed for pain., Disp: , Rfl: polyethylene glycol (GLYCOLAX) 17 gram/dose powder, Take 17 g by mouth in the morning., Disp: , Rfl: polyethylene glycol (GoLYTELY) 236-22.74-6.74 -5.86 gram solution, Starting at noon on day prior to procedure, drink 8 ounces every 30 minutes until all gone or stools are clear. May add flavor packet., Disp: 4000 mL, Rfl: 0 pregabalin (LYRICA) 75 mg capsule, Take 1 capsule (75 mg total) by mouth once daily at bedtime., Disp: , Rfl: EDWIN-LOLIS RX 1-60-300 mg-mg-mcg tablet, Take 1 tablet by mouth in the morning., Disp: , Rfl: sennosides-docusate sodium (SENOKOT-S) 8.6-50 mg, Take 1 tablet by mouth every 12 (twelve) hours as needed for constipation., Disp: , Rfl: sertraline (ZOLOFT) 25 mg tablet, Take 1 tablet (25 mg total) by mouth in the morning., Disp: , Rfl: sevelamer (RENVELA) 800 mg tablet, Take 3 tablets (2,400 mg total) by mouth in the morning and 3 tablets (2,400 mg total) at noon and 3 tablets (2,400 mg total) in the evening. Take with meals., Disp: , Rfl: sodium zirconium cyclosilicate (LOKELMA) 10 gram packet, Take 10 g by mouth in the morning., Disp: , Rfl: trazodone HCl (TRAZODONE ORAL), Take 25 mg by mouth nightly., Disp: , Rfl: Social History Socioeconomic History Marital status: Single Spouse name: Not on file Number of children: Not on file Years of education: Not on file Highest education level: Not on file Occupational History Not on file Tobacco Use Smoking status: Never Smokeless tobacco: Never Vaping Use Vaping status: Never Used Substance and Sexual Activity Alcohol use: Not Currently Comment: rare Drug use: Never Sexual activity: Defer Other Topics Concern Not on file Social History Narrative Not on file Social Drivers of Health Financial Resource Strain: Low Risk (05/30/2023) Overall Financial Resource Strain (CARDIA) Difficulty of Paying Living Expenses: Not hard at all Food Insecurity: No Food Insecurity (02/28/2024) Hunger Screening Food Insecurity - Worry: Never True Food Insecurity - Inability: Never True Transportation Needs: No Transportation Needs (05/30/2023) PRAPARE - Transportation Lack of Transportation (Medical): No Lack of Transportation (Non-Medical): No Physical Activity: Not on file Stress: Not on file Social Connections: Not on file Interpersonal Safety: Not At Risk (05/30/2023) Humiliation, Afraid, Rape, and Kick questionnaire Fear of Current or Ex-Partner: No Emotionally Abused: No Physically Abused: No Sexually Abused: No Housing Instability: Low Risk (05/30/2023) Housing Instability Housing Instability: No Family History Problem Relation Age of Onset Breast cancer Cousin Colon cancer Maternal cousin Physical Exam Vitals reviewed. Constitutional: Appearance: Normal appearance. HENT: Head: Normocephalic and atraumatic. Eyes: Pupils: Pupils are equal, round, and reactive to light. Cardiovascular: Rate and Rhythm: Normal rate. Pulmonary: Effort: Pulmonary effort is normal. Abdominal: General: There is no distension. Palpations: Abdomen is soft. Tenderness: There is no abdominal tenderness. Musculoskeletal: General: No swelling. Skin: General: Skin is warm and dry. Comments: Right lateral leg wound, inferiorly foul smelling purulent drainage noted. Tunneling noted. Neurological: Mental Status: She is alert and oriented to person, place, and time. Mental status is at baseline. Psychiatric: Mood and Affect: Mood normal. Behavior: Behavior normal. Vital Signs: Height 165.1 cm (5' 5 ), weight 132.5 kg (292 lb). Respiratory Source: No data recorded Admission Weight: Weight: 132.5 kg (292 lb) Labs: Lab Results Component Value Date WBC 7.9 06/01/2023 HGB 8.6 (L) 06/01/2023 HCT 25.0 (L) 06/01/2023 MCV 92 06/01/2023 PLT 150 06/01/2023 Lab Results Component Value Date GLU 93 06/01/2023 CALCIUM 7.9 (L) 06/01/2023 K 3.9 06/01/2023 CO2 29 06/01/2023 CL 98 06/01/2023 BUN 26 06/01/2023 CREATININE 3.70 (H) 06/01/2023 No results found for: AMYLASE No results found for: LIPASE Lab Results Component Value Date ALT 16 08/21/2021 AST 20 08/21/2021 ALKPHOS 97 08/21/2021 Lab Results Component Value Date INR 1.1 01/13/2021 PROTIME 12.1 01/13/2021 Assessment: Donna Mathews is a 63 y.o.female with Pressure injury of right calf, stage 3 ([facility]) [L89.893] Plan: Schedule for surgical debridement of right leg wound Evaluation included: Preparing to see the patient (e.g., review of tests) Obtaining and/or reviewing separately obtained history Performing a medically appropriate examination and/or evaluation Counseling and educating the patient/family/caregiver Referring and communicating with other health childcare aide Kristine Murphy MD [facility] [place] documented in this encounter [facility] 03-02-2024 Miscellaneous Notes ----- Message from Christina sent at 03/02/2024 11:26 AM EST ----- Regarding: Question Dr Murphy, We have Donna down for an appointment with you for tomorrow 03/03/24, but after speaking to [place], her wheelchair will not fir through our doors. They were wondering if you could see her in [place], but I do not have an opening with you there until 03/19/24. So they were wondering if you would be willing to see her in their van. Please advise us what you would like to do so that we may call Saira back at [phone]. Thank you, Christina I had Chirstina just fit her in, to our [place] clinic schedule on this , for an appointment with Dr Murphy. I am hoping that those doors there will be wider. documented in this encounter [facility] 03-02-2024 Telephone encounter Note ----- Message from Christina sent at 03/02/2024 11:26 AM EST ----- Regarding: Question Dr Murphy, We have Donna down for an appointment with you for tomorrow 03/03/24, but after speaking to Rachele Pérez, her wheelchair will not fir through our doors. They were wondering if you could see her in [place], but I do not have an opening with you there until 03/19/24. So they were wondering if you would be willing to see her in their van. Please advise us what you would like to do so that we may call Saira back at [phone]. Thank you, Christina [facility] 03-02-2024 Telephone encounter Note I had Christina just fit her in, to our [place] clinic schedule on this , for an appointment with Dr Murphy. I am hoping that those doors there will be wider. [facility] 02-28-2024 History of Present illness Narrative Images from the original note were not included. Wound Care Progress Note Patient: Donna Mathews Date of : 1960 Chief Compliant: Bilateral lower leg wounds, follow up SUBJECTIVE/HPI: Donna is a 63 y.o. female who presents to [facility] for evaluation of 3 ulcer(s) on the right and left lateral legs, right 3rd toe. Patient established with wound clinic on 02/14/2024. Current daily wound care includes: medi honey, copper alginate and PolyMem foam. Patient reports wounds are changed daily by nursing facility. [facility] is a [facility]. Reports wound care team at facility treat wounds daily. It appears as if the wounds of the result of her lateral lower legs resting on the support bars of her power chair. Patient states she is scheduled for a chair refitting. Vascular testing scheduled for 03/02/2024 General surgery consult for right lower leg surgical debridement 03/03/2024 Patient states wound on right leg has been present for approximately 3 years. Wound on left leg recently reopened, history of pressure ulcers on right leg. States wound on left 3rd toe started a few days ago when she bumped into a piece of furniture Measurable wound changes: toe wound resolved, left leg wound increase measurement, right leg wound decrease measurement. 1.3 cm increase in RLE calf circumference 4.0 cm increase in LLE calf circumference. Patient accompanied by: caregiver,patient arrives in a power wheelchair. Nutritional screen shows patient does take in three servings of protein per day. Patient does deny fever, chills, sweats, or other signs of infection. Prescribed antibiotics: none Today's reported Blood Sugar:N/A Lab Results Component Value Date HGBA1C 5.5 09/14/2022 HGBA1C 5.7 08/21/2021 Tobacco use: denied - never a smoker Contributing comorbid conditions:MS, nonambulatory, wheelchair dependent, end-stage renal disease, dialysis dependent Labs/Imaging/Cardiovascular: Patient's chart was reviewed for all available supporting documentation, laboratory results and radiographic examination. Wound culture superficial includes gram stain Order: [id number] Status: Final result Visible to patient: Yes (not seen) Dx: Pressure injury of right calf, stage ... Specimen Information: Wound Swab Specimen Comment: RIGHT~CALF 0 Result Notes Component Gram Stain Result 0 WHITE BLOOD CELLS/LPF 0 SQUAMOUS EPITHELIAL CELLS/LPF MANY GRAM POSITIVE COCCI MANY GRAM NEGATIVE RODS MANY GRAM POSITIVE RODS Culture MANY MIXED GRAM POSITIVE AND GRAM NEGATIVE ORGANISMS NO STAPHYLOCOCCUS AUREUS ISOLATED NO PSEUDOMONAS AERUGINOSA ISOLATED NO BETA HEMOLYTIC STREPTOCOCCI ISOLATE XRAY 02/26/2024, right tibia fibula Scanned into media No evidence of osteomyelitis Patient Active Problem List Diagnosis Personal history of DVT (deep vein thrombosis) Closed fracture of femur with nonunion Charcot's arthropathy Anemia of chronic disease Chronic renal impairment, stage 4 (severe) ([facility]) End stage renal disease ([facility]) ESRD (end stage renal disease) ([facility]) Family history of MS (multiple sclerosis) Chronic indwelling Douglas catheter Leukocytosis Morbid obesity ([facility]) MS (multiple sclerosis) ([facility]) Traumatic ulcer of left lower extremity with fat layer exposed ([facility]) Traumatic ulcer of right lower extremity with fat layer exposed ([facility]) Dermatitis associated with moisture Lymphedema AV fistula stenosis ([facility]) Pseudoaneurysm following procedure ([facility]) Anxiety and depression Carpal tunnel syndrome Chronic back pain Congenital pes planus DDD (degenerative disc disease), lumbar Disturbance of skin sensation Enthesopathy of hip region Facet arthritis of lumbar region Lack of coordination Neurogenic bladder Numbness Osteoporosis Pain in limb Peripheral neuropathy Polyneuropathy Radicular pain Radiculopathy, lumbosacral region Ulnar nerve abnormality Chronic fatigue Debility Pressure injury of right calf, stage 3 ([facility]) Past Medical History: Diagnosis Date Anemia Anemia of chronic disease 08/30/2022 [address] fistula stenosis ([facility]) 04/01/2023 Charcot's arthropathy 03/27/2013 Charcot's joint CHF (congestive heart failure) ([facility]) Chronic indwelling Douglas catheter 09/13/2022 Chronic kidney disease Chronic renal impairment, stage 4 (severe) ([facility]) 08/30/2022 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 Deep vein thrombosis ([facility]) RLE Dermatitis associated with moisture 09/14/2022 Diabetes mellitus type 2, controlled ([facility]) Dialysis patient ([facility]) End stage renal disease ([facility]) 09/05/2022 ESRD (end stage renal disease) ([facility]) 09/13/2022 Family history of MS (multiple sclerosis) 09/13/2022 GERD (gastroesophageal reflux disease) Hyperlipidemia Hypertension Leukocytosis 09/13/2022 Lymphedema Morbid obesity ([facility]) 09/13/2022 MS (multiple sclerosis) ([facility]) 09/13/2022 Multiple sclerosis ([facility]) Neuromuscular dysfunction of bladder Obesity Personal history of DVT (deep vein thrombosis) 09/29/2013 Stroke ([facility]) Tabes dorsalis Thrombocytopenia ([facility]) Traumatic ulcer of left lower extremity with fat layer exposed ([facility]) 09/14/2022 Traumatic ulcer of right lower extremity with fat layer exposed ([facility]) 09/14/2022 Past Surgical History: Procedure Laterality Date BARIATRIC SURGERY Catheter Placement N/A 09/07/2022 Performed by Angelique Mckinnon DO at [facility] CARDIAC CATH LABS CREATION ARTERIOVENOUS FISTULA UPPER EXTREMITY BRACHIAL CEPHALIC, EXPLORATION LEFT WRIST WITH REPAIR OF RADIAL ARTERY LEFT Left 10/31/2022 Performed by Braydon Rich MD at [facility] HEMODIALYSIS INPATIENT 05/31/2023 LIPECTOMY AVF Left 02/25/2023 Performed by Krystin Salcedo MD at [facility] Current Outpatient Medications Medication Sig Dispense Refill A/C/E/zinc ox/cupric ox/lutein (OCULAR VITAMINS ORAL) Take 1 tablet by mouth in the morning. acetaminophen (TYLENOL) 325 mg tablet Take 2 tablets (650 mg total) by mouth every 6 (six) hours as needed for pain. acidophilus-pectin, citrus 25 million cell -100 mg tablet Take 1 tablet by mouth daily with breakfast. atorvastatin (LIPITOR) 80 mg tablet Take 1 tablet (80 mg total) by mouth once daily at bedtime. azelastine (ASTELIN) 137 mcg (0.1 %) nasal spray Administer 1 spray into each nostril in the morning and 1 spray before bedtime. Use in each nostril as directed. B complex-vitamin C-folic acid (RENAL-LOLIS) 0.8 mg tablet Take 1 tablet by mouth in the morning. biotin 1 mg tablet Take 1 tablet (1 mg total) by mouth in the morning. bisacodyL (DULCOLAX) 5 mg EC tablet Take 1 tablet (5 mg total) by mouth daily as needed for constipation. 2 tablet 0 calcium carbonate (OS-NAIMA) 500 mg elemental (1,250 mg) chewable tablet Chew 2 tablets (1,000 mg total) and swallow. Take Mon., Th, Sat (she takes the medication with her on dialysis day) calcium carbonate (TUMS) 200 mg elemental (500 mg) chewable tablet Chew 2 tablets (400 mg total) and swallow in the morning. carboxymethylcellulose sodium (ARTIFICIAL TEARS, CMC,) 1 % drops Administer 1 drop to both eyes in the morning and 1 drop before bedtime. carvediloL (COREG) 6.25 mg tablet Take 0.5 tablets (3.125 mg total) by mouth in the morning and 0.5 tablets (3.125 mg total) in the evening. Take with meals. cholecalciferol (VITAMIN D3) 1,000 units tablet Take 1 tablet (1,000 Units total) by mouth in the morning. (Patient taking differently: Take 4 tablets (4,000 Units total) by mouth in the morning.) 30 tablet 3 famotidine (PEPCID) 20 mg tablet Take 1 tablet (20 mg total) by mouth once daily at bedtime. famotidine (PEPCID) 20 mg tablet Take 1 tablet (20 mg total) by mouth Daily at 0700. Take on Mon, , Sat, , Sat lactulose (CHRONULAC) 10 gram/15 mL solution Take 30 mL (20 g total) by mouth daily as needed (constipation). LUTEIN ORAL Take 1 tablet by mouth in the morning. menthol (BIOFREEZE, MENTHOL,) 4 % gel Apply 1 Application topically every 8 (eight) hours as needed (pain). midodrine (PROAMATINE) 10 mg tablet Take 1 tablet (10 mg total) by mouth 3 (three) times a day. midodrine (PROAMATINE) 5 mg tablet Take 1 tablet (5 mg total) by mouth daily as needed (as needed for hypotension MID dialysis for SBP < 120). modafiniL (PROVIGIL) 100 mg tablet Take 1 tablet (100 mg total) by mouth in the morning. nut.tx.imp.renal fxn,lac-reduc (NEPRO CARB STEADY) 0.08 gram-1.8 kcal/mL liquid Take 237 fluid ounces by mouth daily after dinner. nystatin (MYCOSTATIN) powder Apply 1 Application topically in the morning and 1 Application before bedtime. OXcarbazepine (TRILEPTAL) 300 mg tablet Take 1 tablet (300 mg total) by mouth in the morning and 1 tablet (300 mg total) before bedtime. oxyCODONE (ROXICODONE) 5 mg immediate release tablet Take 0.5 tablets (2.5 mg total) by mouth every 6 (six) hours as needed for pain. polyethylene glycol (GLYCOLAX) 17 gram/dose powder Take 17 g by mouth in the morning. polyethylene glycol (GoLYTELY) 236-22.74-6.74 -5.86 gram solution Starting at noon on day prior to procedure, drink 8 ounces every 30 minutes until all gone or stools are clear. May add flavor packet. 4000 mL 0 pregabalin (LYRICA) 75 mg capsule Take 1 capsule (75 mg total) by mouth once daily at bedtime. EDWIN-LOLIS RX 1-60-300 mg-mg-mcg tablet Take 1 tablet by mouth in the morning. sennosides-docusate sodium (SENOKOT-S) 8.6-50 mg Take 1 tablet by mouth every 12 (twelve) hours as needed for constipation. sertraline (ZOLOFT) 25 mg tablet Take 1 tablet (25 mg total) by mouth in the morning. sevelamer (RENVELA) 800 mg tablet Take 3 tablets (2,400 mg total) by mouth in the morning and 3 tablets (2,400 mg total) at noon and 3 tablets (2,400 mg total) in the evening. Take with meals. sodium zirconium cyclosilicate (LOKELMA) 10 gram packet Take 10 g by mouth in the morning. trazodone HCl (TRAZODONE ORAL) Take 25 mg by mouth nightly. No current facility-administered medications for this visit. No Known Allergies The following portions of the patient's history were reviewed and updated as appropriate: allergies, current medications, past family history, past medical history, past social history, past surgical history, problem list, and medication reconciliation was completed including current medication and post discharge medication. Pain Scale: Pain Scale 0/10: 0 (states has pain when pressure to wounds) Review of Systems Constitutional: Negative. Negative for appetite change, chills and fever. HENT: Positive for hearing loss. Negative for trouble swallowing. Eyes: Negative. Respiratory: Negative. Negative for cough, shortness of breath and stridor. Cardiovascular: Positive for leg swelling. Negative for chest pain and palpitations. Gastrointestinal: Negative. Negative for abdominal distention, abdominal pain, nausea and vomiting. Genitourinary: Positive for difficulty urinating. Negative for dysuria, frequency and urgency. Musculoskeletal: Positive for arthralgias, back pain and gait problem. Skin: Positive for color change and wound. Neurological: Positive for numbness. Negative for weakness. Psychiatric/Behavioral: The patient is nervous/anxious. Objective: Vitals: 02/28/24 1447 BP: 121/74 Pulse: 99 Resp: 16 Temp: 36.5 C (97.7 F) Physical Exam Vitals and nursing note reviewed. Constitutional: Appearance: She is well-developed. HENT: Head: Normocephalic and atraumatic. Mouth/Throat: Dentition: Abnormal dentition. Cardiovascular: Rate and Rhythm: Normal rate and regular rhythm. Heart sounds: No murmur heard. No friction rub. Comments: Right dorsalis pedis unable to locate Right posterior tibial Doppler signal, monophasic Left dorsalis pedis unable to locate with Doppler Left posterior tibial Doppler signals, monophasic, week Bilateral lower extremity 1 to 2+ pitting edema +stemmers sign bilaterally Bilateral lower extremities warm, dry scaly skin, hairless Pulmonary: Effort: No respiratory distress. Breath sounds: Normal breath sounds. No wheezing. Musculoskeletal: General: Normal range of motion. Cervical back: Normal range of motion. Skin: General: Skin is warm and dry. Neurological: Mental Status: She is alert and oriented to person, place, and time. Wound Assessment Wound 02/14/24 1 Calf Right;Right Lateral (Active) Wound Image Pre debridement Post debridement 02/28/24 151 Site Assessment Red;Ransom;Black;Stark;Clean;Yellow 02/28/24 145 Cecy-wound Assessment Blanchable erythema 02/28/24 1452 Wound Length (cm) 10.2 cm 02/28/24 1515 Wound Width (cm) 2.2 cm 02/28/24 1515 Wound Surface Area (cm^2) 22.44 cm^2 02/28/24 1515 Wound Depth (cm) 1.2 cm 02/28/24 1515 Wound Volume (cm^3) 26.928 cm^3 02/28/24 1515 Change in Wound Size % 6.5 02/28/24 1515 Drainage Description Green;Yellow;Serosanguineous;Stark ;Odor Foul 02/28/24 145 Drainage Amount Large Copious 02/28/24 1452 Treatments Cleansed with;Wound cleanser;Soak with;Vashe/Hypochlorous Acid 02/28/24 1452 Debridement Performed? Y 02/28/24 1515 Type of Debridement Sharp to Subcutaneous 02/28/241514 Dressing Type Honey Dressing;Vaseline gauze;Copper Dressing;Abdominal dressing;Gauze Rolled/Kerlix 02/28/24 151 Dressing Changed Changed 02/28/24 151 Dressing Status Clean;Dry;Intact 02/28/241514 Wound Bed Granulation (%) 25% to 50% 02/28/241451 Wound Bed Slough (%) 50% to 75% 02/28/241451 Tunneling 1 (cm) 1.9 cm 02/28/241451 Tunneling 1 Clock Position of Wound 6 o'clock 02/28/241451 Wound 02/14/24 3 Calf Left;Lateral (Active) Wound Image 02/28/241451 Site Assessment Yellow;Red 02/28/241451 Cecy-wound Assessment Ransom;Blanchable erythema 02/28/241451 Shape blocked 02/28/24 145 Wound Length (cm) 3 cm 02/28/24 145 Wound Width (cm) 2 cm 02/28/24 145 Wound Surface Area (cm^2) 6 cm^2 02/28/24 145 Wound Depth (cm) 0.2 cm 02/28/24 145 Wound Volume (cm^3) 1.2 cm^3 02/28/24 145 Change in Wound Size % -19.05 02/28/24 145 Drainage Description Sanguineous 02/28/241451 Drainage Amount Small 02/28/241451 Treatments Cleansed with;Wound cleanser;Soak with;Vashe/Hypochlorous Acid 02/28/241451 Debridement Performed? N 02/28/241451 Dressing Type Honey Dressing;Vaseline gauze;Copper Dressing;Gauze Rolled/Kerlix 02/28/241451 Dressing Changed Changed 02/28/241451 Dressing Status Clean;Dry;Intact 02/28/241451 Wound Bed Granulation (%) 50% to 75% 02/28/241451 Wound Bed Slough (%) 25% to 50% 02/28/241451 Discussion: Debridement is the removal of foreign material and/or devitalized tissue until healthy tissue is exposed. Risks, benefits and alternatives were discussed with the patient. We discussed possible complications, including infection and bleeding. Written consent was obtained prior to the procedure. Timeout procedure completed. Goal of debridement includes: removal of devitalized tissue, decrease risk of infection, promote wound healing and prevent further complications. Procedure: Debridement/Procedure Level: Removal of devitalized tissue, nonviable tissue and/or infection. Sub-q/Tissue right lateral calf Instrument Used: Adson, Curette, and Scissors Anesthesia dermoplast Bleeding: Large Bleeding Control: Pressure Added Pain Control: Benzocaine 20% spray Specimen Taken: None Total Surface Area of Debridement: 22.44 cm2 Patient tolerates procedure well Assessment/Plan/Education: 1. Pressure injury of right calf, stage 3 (CMS-HCC) 2. Pressure injury of left calf, stage 2 (CMS-HCC) 3. 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 Therapeutic mattress and wheelchair cushion Pad and Protect bony prominences. Assess skin daily Patient instructed in Other: pressure ulcer care to left, right, outer, and calf. Short term goal: medical compliance intermediate teacher goal: wound closure Patient verbalize understanding of treatment regimen and the importance of adherence. Follow up in wound clinic in 3 weeks, next available appointment Instructed to contact wound clinic, PCP or ER should symptoms worsen. The patient was taught to watch for S/S of infection (redness, pus, pain, increased swelling, chills or fever) and to call the PCP or wound care clinic if such occurs. The patient was educated on offloading the area by avoiding direct pressure to the wound bed. Education as well as the pathophysiology of the disease process was provided on infection, edema, necrotic tissue and its relationship to nonhealing wounds. Education was also provided on treatment plan. Patient verbalized understanding. Total time spent was 20 minutes: Preparing to see the patient (e.g., review of tests) Obtaining and/or reviewing separately obtained history Performing a medically appropriate examination and/or evaluation Counseling and educating the patient/family/caregiver Ordering medications, tests, or procedures Referring and communicating with other health childcare aide (not separately reported) Documenting clinical information in the electronic or other health record - GINA THURMAN 02/28/24 3:26 PM Elidia Tierney APRN, MARYAM, CWS, DUC [facility]: [phone] GINA Thurman 02/17/24 1104 GINA Thurman 02/28/24 3562 documented in this encounter [facility] 02-28-2024 Instructions Niharika Moss RN - 02/28/2024 2:40 PM EST Wound Management Treatment Plan [facility] Wound Location(s): right lateral calf, left lateral calf, Right third toe: healed 02/28/24 HOW TO CARE FOR YOUR WOUND: right lateral calf, left lateral calf The following should be performed Daily and as needed. STEP 1: Cleanse wound with Wound cleanser. Irrigate or rinse wound with NO IRRIGATION REQUIRED. STEP 2: Soak wound with NO SOAK REQUIRED STEP 3: Pack with NO PACKING REQUIRED STEP 4: Apply Medihoney to wound bed. STEP 5: Cover wound with Vaseline gauze, then Copper dressing, and cover with an elastic bandage. STEP 6: Secure dressings with Roll gauze/Kerlix and Tape RIGHT THIRD POSTERIOR TOE: healed 02/28/24 -apply antibacterial ointment to healed area daily -cover with band aide - change daily ACTIVITY: Avoid direct pressure to wound(s) at all times and Reposition at least every 2 hours NUTRITION: High protein diet SKIN CARE: MAKE SURE TO PAD AND PROTECT PT'S FEET AND LEGS FROM RUBBING ON HER WHEELCHAIR. SWELLING CONTROL: Precious wraps to be applied first thing in the morning and removed at bedtime. right and left leg wrap from base of toes to just below the knee. May require more than one wrap per leg. ITEMS TO FOLLOW UP ON: -Xray of right lower leg completed. -appointment for vascular studies is 03/02/24 - has been consulted in regards to taking you to surgery for debridement of right calf wound. (Referral and orders are being faxed to [place] 02/14/24} -Keep appointment with Dr Murphy for 03/03/24 as scheduled. A wound culture was obtained at wound care clinic 02/14/24 Length Width Depth Wound drainage Type Description large Serosanguinous Stark, yellow, green, bloody documented in this encounter [facility] 02-19-2024 Miscellaneous Notes Patient presented today for colonoscopy, unfortunately nursing noted formed brown stool still the and procedure was therefore canceled. Please work with patient's facility to reschedule colonoscopy as soon as all parties are able, this time with an extended 2 day bowel preparation with GoLYTELY or similar given her kidney disease.ASA 3, with MAC, at [facility]. thanks documented in this encounter [facility] 02-19-2024 Telephone encounter Note Patient presented today for colonoscopy, unfortunately nursing noted formed brown stool still the and procedure was therefore canceled. Please work with patient's facility to reschedule colonoscopy as soon as all parties are able, this time with an extended 2 day bowel preparation with GoLYTELY or similar given her kidney disease.ASA 3, with MAC, at [facility]. thanks [facility] 02-14-2024 History of Present illness Narrative Images from the original note were not included. Wound Care Progress Note Patient: Donna Mathews Date of : 1960 Chief Compliant: Bilateral lower leg wounds New patient evaluation SUBJECTIVE/HPI: Donna is a 63 y.o. female who presents to [facility] for evaluation of 3 ulcer(s) on the right and left lateral legs, right 3rd toe. Patient established with wound clinic on 02/14/2024. Current daily wound care includes: medi honey, copper alginate and PolyMem foam. Patient reports wounds are changed daily by nursing facility. [facility]. Reports wound care team at facility treat wounds daily. Referral today is for debridement of right lateral calf wound. It appears as if the wounds of the result of her lateral lower legs resting on the support bars of her power chair. Patient states she is scheduled for a chair refitting. Patient states wound on right leg has been present for approximately 3 years. Wound on left leg recently reopened, history of pressure ulcers on right leg. States wound on left 3rd toe started a few days ago when she bumped into a piece of furniture Measurable wound changes: new evaluation Patient accompanied by: caregiver,patient arrives in a power wheelchair. Nutritional screen shows patient does take in three servings of protein per day. Patient does deny fever, chills, sweats, or other signs of infection. Prescribed antibiotics: none Today's reported Blood Sugar:N/A Lab Results Component Value Date HGBA1C 5.5 09/14/2022 HGBA1C 5.7 08/21/2021 Tobacco use: denied - never a smoker Contributing comorbid conditions:MS, nonambulatory, wheelchair dependent, end-stage renal disease, dialysis dependent Labs/Imaging/Cardiovascular: Patient's chart was reviewed for all available supporting documentation, laboratory results and radiographic examination. Patient Active Problem List Diagnosis Personal history of DVT (deep vein thrombosis) Closed fracture of femur with nonunion Charcot's arthropathy Anemia of chronic disease Chronic renal impairment, stage 4 (severe) ([facility]) End stage renal disease ([facility]) ESRD (end stage renal disease) ([facility]) Family history of MS (multiple sclerosis) Chronic indwelling Douglas catheter Leukocytosis Morbid obesity ([facility]) MS (multiple sclerosis) ([facility]) Traumatic ulcer of left lower extremity with fat layer exposed ([facility]) Traumatic ulcer of right lower extremity with fat layer exposed ([facility]) Dermatitis associated with moisture Lymphedema AV fistula stenosis ([facility]) Pseudoaneurysm following procedure ([facility]) Anxiety and depression Carpal tunnel syndrome Chronic back pain Congenital pes planus DDD (degenerative disc disease), lumbar Disturbance of skin sensation Enthesopathy of hip region Facet arthritis of lumbar region Lack of coordination Neurogenic bladder Numbness Osteoporosis Pain in limb Peripheral neuropathy Polyneuropathy Radicular pain Radiculopathy, lumbosacral region Ulnar nerve abnormality Chronic fatigue Debility Pressure injury of right calf, stage 3 ([facility]) Past Medical History: Diagnosis Date Anemia Anemia of chronic disease 08/30/[address] fistula stenosis ([facility]) 04/01/2023 Charcot's arthropathy 03/27/2013 Charcot's joint CHF (congestive heart failure) ([facility]) Chronic indwelling Douglas catheter 09/13/2022 Chronic kidney disease Chronic renal impairment, stage 4 (severe) ([facility]) 08/30/2022 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 Deep vein thrombosis ([facility]) RLE Dermatitis associated with moisture 09/14/2022 Diabetes mellitus type 2, controlled ([facility]) Dialysis patient ([facility]) End stage renal disease ([facility]) 09/05/2022 ESRD (end stage renal disease) ([facility]) 09/13/2022 Family history of MS (multiple sclerosis) 09/13/2022 GERD (gastroesophageal reflux disease) Hyperlipidemia Hypertension Leukocytosis 09/13/2022 Lymphedema Morbid obesity ([facility]) 09/13/2022 MS (multiple sclerosis) ([facility]) 09/13/2022 Multiple sclerosis ([facility]) Neuromuscular dysfunction of bladder Obesity Personal history of DVT (deep vein thrombosis) 09/29/2013 Stroke ([facility]) Tabes dorsalis Thrombocytopenia ([facility]) Traumatic ulcer of left lower extremity with fat layer exposed ([facility]) 09/14/2022 Traumatic ulcer of right lower extremity with fat layer exposed ([facility]) 09/14/2022 Past Surgical History: Procedure Laterality Date BARIATRIC SURGERY Catheter Placement N/A 09/07/2022 Performed by Angelique Mckinnon DO at [facility] CARDIAC CATH LABS CREATION ARTERIOVENOUS FISTULA UPPER EXTREMITY BRACHIAL CEPHALIC, EXPLORATION LEFT WRIST WITH REPAIR OF RADIAL ARTERY LEFT Left 10/31/2022 Performed by Braydon Rich MD at [facility] HEMODIALYSIS INPATIENT 05/31/2023 LIPECTOMY AVF Left 02/25/2023 Performed by Krystin Salcedo MD at [facility] Current Outpatient Medications Medication Sig Dispense Refill A/C/E/zinc ox/cupric ox/lutein (OCULAR VITAMINS ORAL) Take 1 tablet by mouth in the morning. acetaminophen (TYLENOL) 325 mg tablet Take 2 tablets (650 mg total) by mouth every 6 (six) hours as needed for pain. acidophilus-pectin, citrus 25 million cell -100 mg tablet Take 1 tablet by mouth daily with breakfast. atorvastatin (LIPITOR) 80 mg tablet Take 1 tablet (80 mg total) by mouth once daily at bedtime. azelastine (ASTELIN) 137 mcg (0.1 %) nasal spray Administer 1 spray into each nostril in the morning and 1 spray before bedtime. Use in each nostril as directed. B complex-vitamin C-folic acid (RENAL-LOLIS) 0.8 mg tablet Take 1 tablet by mouth in the morning. biotin 1 mg tablet Take 1 tablet (1 mg total) by mouth in the morning. bisacodyL (DULCOLAX) 5 mg EC tablet Take 1 tablet (5 mg total) by mouth daily as needed for constipation. 2 tablet 0 calcium carbonate (OS-NAIMA) 500 mg elemental (1,250 mg) chewable tablet Chew 2 tablets (1,000 mg total) and swallow. Take Sat., , Sat (she takes the medication with her on dialysis day) calcium carbonate (TUMS) 200 mg elemental (500 mg) chewable tablet Chew 2 tablets (400 mg total) and swallow in the morning. carboxymethylcellulose sodium (ARTIFICIAL TEARS, CMC,) 1 % drops Administer 1 drop to both eyes in the morning and 1 drop before bedtime. carvediloL (COREG) 6.25 mg tablet Take 0.5 tablets (3.125 mg total) by mouth in the morning and 0.5 tablets (3.125 mg total) in the evening. Take with meals. cholecalciferol (VITAMIN D3) 1,000 units tablet Take 1 tablet (1,000 Units total) by mouth in the morning. (Patient taking differently: Take 4 tablets (4,000 Units total) by mouth in the morning.) 30 tablet 3 famotidine (PEPCID) 20 mg tablet Take 1 tablet (20 mg total) by mouth once daily at bedtime. famotidine (PEPCID) 20 mg tablet Take 1 tablet (20 mg total) by mouth Daily at 0700. Take on Sat, , Sat, , Sat lactulose (CHRONULAC) 10 gram/15 mL solution Take 30 mL (20 g total) by mouth daily as needed (constipation). LUTEIN ORAL Take 1 tablet by mouth in the morning. menthol (BIOFREEZE, MENTHOL,) 4 % gel Apply 1 Application topically every 8 (eight) hours as needed (pain). midodrine (PROAMATINE) 10 mg tablet Take 1 tablet (10 mg total) by mouth 3 (three) times a day. midodrine (PROAMATINE) 5 mg tablet Take 1 tablet (5 mg total) by mouth daily as needed (as needed for hypotension MID dialysis for SBP < 120). modafiniL (PROVIGIL) 100 mg tablet Take 1 tablet (100 mg total) by mouth in the morning. nut.tx.imp.renal fxn,lac-reduc (NEPRO CARB STEADY) 0.08 gram-1.8 kcal/mL liquid Take 237 fluid ounces by mouth daily after dinner. nystatin (MYCOSTATIN) powder Apply 1 Application topically in the morning and 1 Application before bedtime. OXcarbazepine (TRILEPTAL) 300 mg tablet Take 1 tablet (300 mg total) by mouth in the morning and 1 tablet (300 mg total) before bedtime. oxyCODONE (ROXICODONE) 5 mg immediate release tablet Take 0.5 tablets (2.5 mg total) by mouth every 8 (eight) hours as needed for pain. polyethylene glycol (GLYCOLAX) 17 gram/dose powder Take 17 g by mouth in the morning. polyethylene glycol (GoLYTELY) 236-22.74-6.74 -5.86 gram solution Starting at noon on day prior to procedure, drink 8 ounces every 30 minutes until all gone or stools are clear. May add flavor packet. 4000 mL 0 pregabalin (LYRICA) 75 mg capsule Take 1 capsule (75 mg total) by mouth once daily at bedtime. EDWIN-LOLIS RX 1-60-300 mg-mg-mcg tablet Take 1 tablet by mouth in the morning. sennosides-docusate sodium (SENOKOT-S) 8.6-50 mg Take 1 tablet by mouth every 12 (twelve) hours as needed for constipation. sertraline (ZOLOFT) 25 mg tablet Take 1 tablet (25 mg total) by mouth in the morning. sevelamer (RENVELA) 800 mg tablet Take 3 tablets (2,400 mg total) by mouth in the morning and 3 tablets (2,400 mg total) at noon and 3 tablets (2,400 mg total) in the evening. Take with meals. sodium zirconium cyclosilicate (LOKELMA) 10 gram packet Take 10 g by mouth in the morning. trazodone HCl (TRAZODONE ORAL) Take 25 mg by mouth nightly. No current facility-administered medications for this visit. No Known Allergies The following portions of the patient's history were reviewed and updated as appropriate: allergies, current medications, past family history, past medical history, past social history, past surgical history, problem list, and medication reconciliation was completed including current medication and post discharge medication. Pain Scale: Pain Scale 0/10: 0 (PT DENIES PAIN AT PRESENT- STAES CAN HURT WHEN PRESSURE IT APPLIED) Review of Systems Constitutional: Negative. Negative for appetite change, chills and fever. HENT: Positive for hearing loss. Negative for trouble swallowing. Eyes: Negative. Respiratory: Negative. Negative for cough, shortness of breath and stridor. Cardiovascular: Positive for leg swelling. Negative for chest pain and palpitations. Gastrointestinal: Negative. Negative for abdominal distention, abdominal pain, nausea and vomiting. Genitourinary: Positive for difficulty urinating. Negative for dysuria, frequency and urgency. Musculoskeletal: Positive for arthralgias, back pain and gait problem. Skin: Positive for color change and wound. Neurological: Positive for numbness. Negative for weakness. Psychiatric/Behavioral: The patient is nervous/anxious. Objective: Vitals: 02/14/24 1126 BP: (!) 80/50 Pulse: 84 Temp: 36.9 C (98.4 F) Asymptomatic hypotension, completed dialysis prior to wound appointment Physical Exam Vitals and nursing note reviewed. Constitutional: Appearance: She is well-developed. HENT: Head: Normocephalic and atraumatic. Mouth/Throat: Dentition: Abnormal dentition. Cardiovascular: Rate and Rhythm: Normal rate and regular rhythm. Heart sounds: No murmur heard. No friction rub. Comments: Right dorsalis pedis unable to locate Right posterior tibial Doppler signal, monophasic Left dorsalis pedis unable to locate with Doppler Left posterior tibial Doppler signals, monophasic, week Bilateral lower extremity 1 to 2+ pitting edema +stemmers sign bilaterally Bilateral lower extremities warm, dry scaly skin, hairless Pulmonary: Effort: No respiratory distress. Breath sounds: Normal breath sounds. No wheezing. Musculoskeletal: General: Normal range of motion. Cervical back: Normal range of motion. Skin: General: Skin is warm and dry. Neurological: Mental Status: She is alert and oriented to person, place, and time. Wound Assessment Wound 02/14/24 1 Calf Right;Right Lateral (Active) Wound Image Pre debridement Post debridement Culture obtained 02/14/24 1200 Site Assessment Yellow;Red;Moist 02/14/24 1200 Cecy-wound Assessment Dry;Ransom;Blanchable erythema 02/14/24 1200 Wound Length (cm) 8 cm 02/14/24 1200 Wound Width (cm) 3 cm 02/14/24 1200 Wound Surface Area (cm^2) 24 cm^2 02/14/24 1200 Wound Depth (cm) 0.4 cm 02/14/24 1200 Wound Volume (cm^3) 9.6 cm^3 02/14/24 1200 Drainage Description Serosanguineous;Yellow 02/14/24 1200 Drainage Amount Large Copious 02/14/24 1200 Treatments Cleansed with;Wound cleanser 02/14/24 1200 Debridement Performed? Y 02/14/241199 Type of Debridement Sharp to Subcutaneous 02/14/24 1200 Dressing Type Honey Dressing;Vaseline gauze;Copper Dressing;Abdominal dressing;Gauze Rolled/Kerlix 02/14/24 1200 Dressing Changed New 02/14/24 1200 Dressing Status Clean;Dry;Intact 02/14/241199 Wound Bed Slough (%) 75% to 100% 02/14/24 1200 Wound 2 Toe D3, third Right;Posterior (Active) Wound Image Pre debridement 02/14/24 1200 Site Assessment Ransom;Red 02/14/24 1200 Cecy-wound Assessment Maceration 02/14/24 1200 Wound Length (cm) 1 cm 02/14/24 1200 Wound Width (cm) 1.5 cm 02/14/24 1200 Wound Surface Area (cm^2) 1.5 cm^2 02/14/24 1200 Wound Depth (cm) 0.1 cm 02/14/24 1200 Wound Volume (cm^3) 0.15 cm^3 02/14/24 1200 Drainage Description Serosanguineous 02/14/24 1200 Drainage Amount Small 02/14/24 1200 Treatments Cleansed with;Wound cleanser 02/14/24 1200 Debridement Performed? Y 02/14/241199 Type of Debridement Sharp to Subcutaneous 02/14/24 1200 Dressing Type Dry Dressing 02/14/24 1200 Dressing Changed New 02/14/24 1200 Wound Bed Granulation (%) 75% to 100% 02/14/24 1200 Wound 02/14/24 3 Calf Left;Lateral (Active) Wound Image 02/14/24 1200 Site Assessment Yellow;Red 02/14/241199 Cecy-wound Assessment Ransom;Dry 02/14/24 1200 Wound Length (cm) 2.1 cm 02/14/24 1200 Wound Width (cm) 2.4 cm 02/14/24 1200 Wound Surface Area (cm^2) 5.04 cm^2 02/14/24 1200 Wound Depth (cm) 0.4 cm 02/14/241199 Wound Volume (cm^3) 2.016 cm^3 02/14/24 1200 Drainage Description Serosanguineous 02/14/24 1200 Drainage Amount Small 02/14/24 1200 Treatments Cleansed with;Wound cleanser 02/14/24 1200 Debridement Performed? N 02/14/24 1200 Dressing Type Honey Dressing;Vaseline gauze;Copper Dressing;Gauze Rolled/Kerlix 02/14/24 1200 Dressing Changed New 02/14/24 1200 Dressing Status Clean;Dry;Intact 02/14/241199 Wound Bed Slough (%) 50% to 75% 02/14/241199 Discussion: Debridement is the removal of foreign material and/or devitalized tissue until healthy tissue is exposed. Risks, benefits and alternatives were discussed with the patient. We discussed possible complications, including infection and bleeding. Written consent was obtained prior to the procedure. Timeout procedure completed. Goal of debridement includes: removal of devitalized tissue, decrease risk of infection, promote wound healing and prevent further complications. Procedure: Debridement/Procedure Level: Removal of devitalized tissue, nonviable tissue and/or infection. Sub-q/Tissue right lateral calf and right third toe Instrument Used: Adson, Curette, and Scissors Anesthesia dermoplast Bleeding: Large Bleeding Control: Pressure Added Pain Control: Benzocaine 20% spray Specimen Taken: C&S carlisle method, right leg Total Surface Area of Debridement: 25.5 cm2 Patient tolerates procedure well Assessment/Plan/Education: 1. Pressure injury of right calf, stage 3 (CMS-HCC) 2. 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 Traumatic ulcer of right foot limited to breakdown of skin (CMS-HCC) 5. Decreased pedal pulses 6. Lymphedema Wash wounds daily mild soap and water Cover wounds with medi honey Cover with copper alginate Cover with ABD Secure with roll gauze Change daily Obtain x-ray right leg, concern for abscess Bilateral ABIs Bilateral venous insufficiency testing Wound culture obtained Surgical consult, Dr. Murphy, for right leg wound debridement, nursing facility notified. Wound left 3rd toe Wash mild soap and water Cover with antibacterial ointment Secure with dry dressing of comfort Change daily Preventable Bundle Turn a minimum of every 2 hours while in bed. Therapeutic mattress and wheelchair cushion Pad and Protect bony prominences. Assess skin daily Patient instructed in Other: pressure ulcer care to left, right, outer, and calf. Short term goal: medical compliance intermediate teacher goal: wound closure Patient verbalize understanding of treatment regimen and the importance of adherence. Follow up in wound clinic in 2 weeks Instructed to contact wound clinic, PCP or ER should symptoms worsen. The patient was taught to watch for S/S of infection (redness, pus, pain, increased swelling, chills or fever) and to call the PCP or wound care clinic if such occurs. The patient was educated on offloading the area by avoiding direct pressure to the wound bed. Education as well as the pathophysiology of the disease process was provided on infection, edema, necrotic tissue and its relationship to nonhealing wounds. Education was also provided on treatment plan. Patient verbalized understanding. Total time spent was 35 minutes: Preparing to see the patient (e.g., review of tests) Obtaining and/or reviewing separately obtained history Performing a medically appropriate examination and/or evaluation Counseling and educating the patient/family/caregiver Ordering medications, tests, or procedures Referring and communicating with other health childcare aide (not separately reported) Documenting clinical information in the electronic or other health record - ELIDIA TIERNEY APRN-MARYAM 02/14/24 12:24 PM Elidia Tierney APRN, MARYAM, CWS, DUC [facility]: [phone] GINA Thurman 02/17/24 1104 documented in this encounter [facility] 02-14-2024 Instructions Cynthia Carlos RN - 02/14/2024 11:00 AM EST Wound Management Treatment Plan [facility] Wound Location(s): right lateral calf, left lateral calf, right 3rd toe HOW TO CARE FOR YOUR WOUND The following should be performed Daily and as needed. STEP 1: Cleanse wound with Wound cleanser. Irrigate or rinse wound with NO IRRIGATION REQUIRED. STEP 2: Soak wound with NO SOAK REQUIRED STEP 3: Pack with NO PACKING REQUIRED STEP 4: Apply Medihoney to wound bed. STEP 5: Cover wound with Vaseline gauze, then Copper dressing, and cover with an elastic bandage. STEP 6: Secure dressings with Roll gauze/Kerlix and Tape ACTIVITY: Avoid direct pressure to wound(s) at all times and Reposition at least every 2 hours NUTRITION: High protein diet SKIN CARE: MAKE SURE TO PAD AND PROTECT PT'S FEET AND LEGS FROM RUBBING ON HER WHEELCHAIR. SWELLING CONTROL: Precious wraps to be applied first thing in the morning and removed at bedtime. right and left leg wrap from base of toes to just below the knee. May require more than one wrap per leg. ITEMS TO FOLLOW UP ON: Get xray of right lower leg, make appointment for vascular studies, has been consulted in regards to taking you to surgery for debridement of right calf wound. (Referral and orders are being faxed to [place] 02/14/24} A wound culture was obtained today at wound care clinic 02/14/24 Length Width Depth Wound drainage Type Description large Serous serous documented in this encounter [facility] 02-05-2024 Instructions Formatting of th is note might be different from the original. Your surgery/procedure is scheduled at [facility] on February 18 at 1000 am Arrival Time 800 am [facility] Address: [address] [place] [address] in Parking lot located on [facility]. Report to the Entrance B. Check in at the information desk the surgery. The waiting room located on the second floor. If you have any questions prior to surgery, please call Pre-Admission Clinic at [phone] between 7:30 am and 4:30 pm Saturday through Saturday. If you have questions the morning of surgery, please call the Pre-op Department at [phone]. Notify your SURGEON if you develop any illness such as a cold, cough, fever, sore throat, vomiting or are hospitalized between now and your surgery. Medication Instructions (Do not stop your medications without consulting the prescribing physician). Take the following medications the morning of surgery with a sip of water: carvedilol, midodrine, oxycarbazepine/treliptal Diabetic or Weight loss medications: HOLD n/a LAST DOSE n/a Take inhalers as prescribed the morning of surgery. Due to the risk associated with these medications. If these medications are not held per instruction below, your surgery is at an increased risk for cancellation. SGLT2 Medications- Hold 3 days prior to surgery: Jardiance, Empagliflozin, Farxiga, Dapagliflozin, Invokana, Canagliflozin, Trijardy, Synjardy GLP-1 Medications (Injection or Pill)- If taken daily hold day of surgery. If taken weekly, hold 1 week prior to surgery: Adlyxin, Byetta, Bydureon, Ozempic, Rybelsus,Trulicity, Victoza, Wegovy, Lixisenatide, Exenatide, Semaglutide, Dulaglutide, Liraglutide GIP/GLP-1(Injection or Pill)- If taken daily hold day of surgery. If taken weekly, hold 1 week prior to surgery: Mounjaro . Blood thinners: Please contact your prescribing physician regarding a stop/hold date for these medications. Medications such as Coumadin, Heparin, Aspirin, Plavix, Eliquis, Pradaxa Diabetics: If you take insulin, contact your prescribing doctor for instructions on how to manage this the night before and the morning of surgery. Non-steriodal Anti-Inflammatory Drugs (NSAIDS)- Hold 3 days prior to surgery unless otherwise directed by your surgeon. Vitamins/Herbal Products: You may continue to take your prescribed vitamins such as potassium, iron, vitamin B, vitamin C, or multivitamin unless specifically instructed by your surgeon to hold. STOP taking all herbal products/teas one week prior to your surgery. Marijuana: Stop marijuana 72 hours prior to surgery, stop CBD oil 48 hours prior to surgery. If you have been given bowel prep instructions by your surgeon, please call the surgeon's office with any questions about these instructions. What do I do the day of Surgery? Age 2 through adult - Stop all solids by midnight, You may have clear liquids up to 2 hours before surgery, unless otherwise instructed by your surgeon. Clear liquids are: water, sports drinks such as Gatorade or G2, or apple juice. You may NOT have: tube feedings, dairy products, alcoholic beverages, orange juice, or any liquids with solids or pulp in it. If applicable, shower again with CHG soap the morning of your surgery. If you received a green plastic bracelet, bring it with you the day of surgery and your nurse will put it on you. In order to help prevent infection post-operatively, you may be asked to use a CHG mouthwash when you arrive to the Pre-op area. Your nurse will provide instruction the morning of. What do I need to do to prepare for surgery? If you will be going home the same day as your surgery, arrange for an adult over [address] Riding in a bus or taxi by yourself is not permitted. You should not smoke or drink alcohol 24 hours before your surgery. Alcohol thins the blood and may cause bleeding problems during surgery. Smoking increases the risk of breathing problems after surgery. Do not use lotions, creams, powders, perfume, make up, cologne or after-shaves day of surgery. Remove ALL jewelry including wedding rings, body piercings (including dermal piercings ,hair extensions that contain metal, nail cypriot, make-up, and contact lens. You may brush your teeth the morning of surgery, but do not swallow the water. Wear your dentures and partial plates to the hospital (no adhesive). Shower the night the before. If applicable, use the CHG (chlorhexidine gluconate) soap or wipes What should I bring to the hospital? If you received a green plastic bracelet, bring it with you the day of surgery and your nurse will put it on you. Eyeglass or contact lens case If you will be spending the night, please bring personal care items and leave them in the car until you are taken to your room after surgery. Leave ALL valuables at home. If any of these instructions conflict with those you received from the surgeon, please seek clarification from your surgeon's office. DEEP BREATHING EXERCISES This exercise helps promote good air exchange and helps to prevent pneumonia after surgery. Breathe in slowly and deeply through the nose. Hold your breath for a few seconds and then exhale slowly through the mouth. Repeat this three times and then cough.Coughing helps to clear your lungs. If you have had a surgery with an incision into your abdomen or chest, press gently against your incision with a pillow or a folded blanket when you cough. Please be aware - it may not be medina to cough following some types of surgeries involving the eyes, ears, sinuses and throat. Always follow your doctor's instructions. LEG EXERCISE These exercises help promote good circulation and help to prevent blood clots after surgery. Point your toes to the ceiling and then point them to the wall. Do this slowly about 15-20 times. You may also move your feet in circles. Do the exercise that is most comfortable for you. If you have had surgery involving your shoulder or arm, we recommend you move your fingers. PRACTICING We ask that you begin practicing these exercises before your surgery. After surgery try to do both exercises at least every 2 hours during the day and early evening. SURGICAL SITE INFECTION PREVENTION What is a Surgical Site Infection? Infection can happen to the area of the body where surgery is done. This is called a surgical site infection (SSI). A SSI does not happen very often. Can SSIs be treated? Antibiotics are used to treat SSI. Some patients may need another surgery to treat the infection. The doctor will discuss treatment options with you. What are some of the things that hospitals are doing to prevent SSIs? Soap and water or alcohol hand rub are used before and after caring for each patient. Special soap is used to clean surgery workers hands and arms just before the surgery. Masks, gowns, gloves and hair covers are worn during the surgery to keep the area clean. Hair in the surgery area may be removed with clippers (not razors). A special soap that kills germs is used to clean the skin at the surgery site. Antibiotics may be given before the surgery starts. What can you do to prevent SSIs? Before surgery: You may be asked to shower or bathe with a special soap that kills germs the night before and the day of surgery. Use the soap as you were told. If you smoke, stop or cut down. Ask your doctor about ways to quit. Do not shave near where you will have surgery. Shaving can irritate the skin and make it easier to get and infection. After surgery: Be sure that the doctors and nurses clean their hands before and after touching you. Be sure your family and friends clean their hands before and after visiting you. Do not be afraid to remind them. * Care for your wound at home as told by your doctor or nurse * Call your doctor right away if you have fever, redness, increased pain, or drainage at the surgery site. Further questions? Contact the doctor, nurse or the Infection Prevention and Control department if you have any questions. PATIENT RIGHTS AND RESPONSIBILITIES As a patient at [facility], you have the right to: Receive medical care and be informed of who is taking care of you Be treated with dignity and respect Have a family member/account manager sales representative of choice and your physician notified of your admission Receive information and actively participate in decisions about your care and treatment Refuse care, treatment and services Decide who may provide your support and speak for you Access sikhism and spiritual services Participate in ethical issues and questions about your care Receive private and confidential care Have appropriate assessment and management of your pain Know guest visitation restrictions or limitations Have an advance directive Access protective services Consent or refuse to participate in research studies or production or recordings, films or other images Have resolution of your complaints Receive information of hospital charges and payment methods Patient/patient account manager sales representative responsibilities are to: Provide information about health status to facilitate care, treatment and services Follow the treatment, plan, keep appointments and speak up when you do not understand the plan Respect the rights of other patients and healthcare personnel Follow organizational rules and regulations that support quality care and a safe environment Fulfill financial obligations as promptly as possible [facility] 02-05-2024 Miscellaneous Notes Preadmission testing instructions fax to facility for procedure on 02/19/2024 at [facility] , with confirmation received. Your surgery/procedure is scheduled at [facility] on February 18 at 1000 am Arrival Time 800 am [facility] Address: [address] [place] [address]. [place] [address] [address] Parking [address] located on [facility]. Report to the Entrance B. Check in at the information desk the surgery. The waiting room located on the second floor. If you have any questions prior to surgery, please call Pre-Admission Clinic at [phone] between 7:30 am and 4:30 pm Saturday through Saturday. If you have questions the morning of surgery, please call the Pre-op Department at [phone]. Notify your SURGEON if you develop any illness such as a cold, cough, fever, sore throat, vomiting or are hospitalized between now and your surgery. Medication Instructions (Do not stop your medications without consulting the prescribing physician). Take the following medications the morning of surgery with a sip of water: carvedilol, midodrine, oxycarbazepine/treliptal Diabetic or Weight loss medications: HOLD n/a LAST DOSE n/a Take inhalers as prescribed the morning of surgery. Due to the risk associated with these medications. If these medications are not held per instruction below, your surgery is at an increased risk for cancellation. SGLT2 Medications- Hold 3 days prior to surgery: Jardiance, Empagliflozin, Farxiga, Dapagliflozin, Invokana, Canagliflozin, Trijardy, Synjardy GLP-1 Medications (Injection or Pill)- If taken daily hold day of surgery. If taken weekly, hold 1 week prior to surgery: Adlyxin, Byetta, Bydureon, Ozempic, Rybelsus,Trulicity, Victoza, Wegovy, Lixisenatide, Exenatide, Semaglutide, Dulaglutide, Liraglutide GIP/GLP-1(Injection or Pill)- If taken daily hold day of surgery. If taken weekly, hold 1 week prior to surgery: Mounjaro . Blood thinners: Please contact your prescribing physician regarding a stop/hold date for these medications. Medications such as Coumadin, Heparin, Aspirin, Plavix, Eliquis, Pradaxa Diabetics: If you take insulin, contact your prescribing doctor for instructions on how to manage this the night before and the morning of surgery. Non-steriodal Anti-Inflammatory Drugs (NSAIDS)- Hold 3 days prior to surgery unless otherwise directed by your surgeon. Vitamins/Herbal Products: You may continue to take your prescribed vitamins such as potassium, iron, vitamin B, vitamin C, or multivitamin unless specifically instructed by your surgeon to hold. STOP taking all herbal products/teas one week prior to your surgery. Marijuana: Stop marijuana 72 hours prior to surgery, stop CBD oil 48 hours prior to surgery. If you have been given bowel prep instructions by your surgeon, please call the surgeon's office with any questions about these instructions. What do I do the day of Surgery? Age 2 through adult - Stop all solids by midnight, You may have clear liquids up to 2 hours before surgery, unless otherwise instructed by your surgeon. Clear liquids are: water, sports drinks such as Gatorade or G2, or apple juice. You may NOT have: tube feedings, dairy products, alcoholic beverages, orange juice, or any liquids with solids or pulp in it. If applicable, shower again with CHG soap the morning of your surgery. If you received a green plastic bracelet, bring it with you the day of surgery and your nurse will put it on you. In order to help prevent infection post-operatively, you may be asked to use a CHG mouthwash when you arrive to the Pre-op area. Your nurse will provide instruction the morning of. What do I need to do to prepare for surgery? If you will be going home the same day as your surgery, arrange for an adult over [address] Riding in a bus or taxi by yourself is not permitted. You should not smoke or drink alcohol 24 hours before your surgery. Alcohol thins the blood and may cause bleeding problems during surgery. Smoking increases the risk of breathing problems after surgery. Do not use lotions, creams, powders, perfume, make up, cologne or after-shaves day of surgery. Remove ALL jewelry including wedding rings, body piercings (including dermal piercings ,hair extensions that contain metal, nail cypriot, make-up, and contact lens. You may brush your teeth the morning of surgery, but do not swallow the water. Wear your dentures and partial plates to the hospital (no adhesive). Shower the night the before. If applicable, use the CHG (chlorhexidine gluconate) soap or wipes What should I bring to the hospital? If you received a green plastic bracelet, bring it with you the day of surgery and your nurse will put it on you. Eyeglass or contact lens case If you will be spending the night, please bring personal care items and leave them in the car until you are taken to your room after surgery. Leave ALL valuables at home. If any of these instructions conflict with those you received from the surgeon, please seek clarification from your surgeon's office. DEEP BREATHING EXERCISES This exercise helps promote good air exchange and helps to prevent pneumonia after surgery. Breathe in slowly and deeply through the nose. Hold your breath for a few seconds and then exhale slowly through the mouth. Repeat this three times and then cough.Coughing helps to clear your lungs. If you have had a surgery with an incision into your abdomen or chest, press gently against your incision with a pillow or a folded blanket when you cough. Please be aware - it may not be [place] to cough following some types of surgeries involving the eyes, ears, sinuses and throat. Always follow your doctor's instructions. LEG EXERCISE These exercises help promote good circulation and help to prevent blood clots after surgery. Point your toes to the ceiling and then point them to the wall. Do this slowly about 15-20 times. You may also move your feet in circles. Do the exercise that is most comfortable for you. If you have had surgery involving your shoulder or arm, we recommend you move your fingers. PRACTICING We ask that you begin practicing these exercises before your surgery. After surgery try to do both exercises at least every 2 hours during the day and early evening. SURGICAL SITE INFECTION PREVENTION What is a Surgical Site Infection? Infection can happen to the area of the body where surgery is done. This is called a surgical site infection (SSI). A SSI does not happen very often. Can SSIs be treated? Antibiotics are used to treat SSI. Some patients may need another surgery to treat the infection. The doctor will discuss treatment options with you. What are some of the things that hospitals are doing to prevent SSIs? Soap and water or alcohol hand rub are used before and after caring for each patient. Special soap is used to clean surgery workers hands and arms just before the surgery. Masks, gowns, gloves and hair covers are worn during the surgery to keep the area clean. Hair in the surgery area may be removed with clippers (not razors). A special soap that kills germs is used to clean the skin at the surgery site. Antibiotics may be given before the surgery starts. What can you do to prevent SSIs? Before surgery: You may be asked to shower or bathe with a special soap that kills germs the night before and the day of surgery. Use the soap as you were told. If you smoke, stop or cut down. Ask your doctor about ways to quit. Do not shave near where you will have surgery. Shaving can irritate the skin and make it easier to get and infection. After surgery: Be sure that the doctors and nurses clean their hands before and after touching you. Be sure your family and friends clean their hands before and after visiting you. Do not be afraid to remind them. * Care for your wound at home as told by your doctor or nurse * Call your doctor right away if you have fever, redness, increased pain, or drainage at the surgery site. Further questions? Contact the doctor, nurse or the Infection Prevention and Control department if you have any questions. PATIENT RIGHTS AND RESPONSIBILITIES As a patient at [facility], you have the right to: Receive medical care and be informed of who is taking care of you Be treated with dignity and respect Have a family member/account manager sales representative of choice and your physician notified of your admission Receive information and actively participate in decisions about your care and treatment Refuse care, treatment and services Decide who may provide your support and speak for you Access sikhism and spiritual services Participate in ethical issues and questions about your care Receive private and confidential care Have appropriate assessment and management of your pain Know guest visitation restrictions or limitations Have an advance directive Access protective services Consent or refuse to participate in research studies or production or recordings, films or other images Have resolution of your complaints Receive information of hospital charges and payment methods Patient/patient account manager sales representative responsibilities are to: Provide information about health status to facilitate care, treatment and services Follow the treatment, plan, keep appointments and speak up when you do not understand the plan Respect the rights of other patients and healthcare personnel Follow organizational rules and regulations that support quality care and a safe environment Fulfill financial obligations as promptly as possible documented in this encounter [facility] 02-05-2024 Nurse Note Preadmission testing instructions fax to facility for procedure on 02/19/2024 at [facility] , with confirmation received. [facility] 01-30-2024 Miscellaneous Notes Golytely prep documented in this encounter [facility] 01-30-2024 Telephone encounter Note Golytely prep [facility] 01-21-2024 History of Present illness Narrative Donna Mathews has a left upper arm AV fistula that I created in October of 2022. Dr. Salcedo did a revision with lipectomy on February 25, 2023. They are now using the fistula regularly and she does not have a tunneled catheter any longer. Physical exam shows a palpable radial pulse at the left wrist. She has a easily palpable thrill over the brachiocephalic AV fistula in the upper arm. She has some areas that are slightly dilated but nothing with thinning of the skin or issues with bleeding. We will see her back in 6 months with a duplex evaluation of her fistula for surveillance. If she should get significant aneurysms then revision might be a consideration. As long as it is functioning well we will leave it alone. documented in this encounter [facility] 12-26-2023 Telephone encounter Note Rx for modafinil is sent for this spring patient. [facility] 12-26-2023 Miscellaneous Notes Rx for modafinil is sent for this spring patient. documented in this encounter [facility] 12-06-2023 Miscellaneous Notes suprep documented in this encounter [facility] 12-06-2023 Telephone encounter Note suprep [facility] 11-29-2023 Miscellaneous Notes 11-29-2023 Saira called to let us know she has the clearance for this patient. She will fax it to us to schedule procedure. Saira's cell number is [phone]. Awaiting clearance. 12-03-23 LVM for Saira to call me back to schedule colonoscopy for this patient. 12-06-23 procedure scheduled on 01-16-24 at 7:30am with Dr. Wise. Suprep ordered thru pharmacy and instructions mailed to home address listed. 01-01-24 procedure rescheduled to 02-10-24 at at 10am. New instructions faxed to [facility] at [phone]. documented in this encounter [facility] 11-29-2023 Telephone encounter Note 11-29-2023 Saira called to let us know she has the clearance for this patient. She will fax it to us to schedule procedure. Saira's cell number is [phone]. Awaiting clearance. [facility] 11-29-2023 Telephone encounter Note 12-03-23 LVM for Saira to call me back to schedule colonoscopy for this patient. [facility] 11-29-2023 Telephone encounter Note 12-06-23 procedure scheduled on 01-16-24 at 7:30am with Dr. Wise. Suprep ordered thru pharmacy and instructions mailed to home address listed. [facility] 11-29-2023 Telephone encounter Note 01-01-24 procedure rescheduled to 02-10-24 at at 10am. New instructions faxed to [facility] at [phone]. [facility] 11-26-2023 Telephone encounter Note Thank you! [facility] 11-26-2023 Miscellaneous Notes Thank you! Spoke to the nurse and let her know the findings and your recommendation. I can fax the order over. [phone] Labs from 11/04/23 identified anemia, elevated creatinine, reduced GFR, and electrolyte abnormalities. These findings may be due to hemodialysis, but I recommend the patient follow up with her PCP and nephrology for further monitoring and management of these abnormal labs. Can you please notify the patient's half-way facility of this recommendation? I also recommend rechecking the patient's WBC count, as this was elevated on 11/04/23. I placed an order for this if you could please fax it to the SNF and let them know. documented in this encounter [facility] 11-26-2023 Telephone encounter Note Spoke to the nurse and let her know the findings and your recommendation. I can fax the order over. [phone] [facility] 11-26-2023 Telephone encounter Note Labs from 11/04/23 identified anemia, elevated creatinine, reduced GFR, and electrolyte abnormalities. These findings may be due to hemodialysis, but I recommend the patient follow up with her PCP and nephrology for further monitoring and management of these abnormal labs. Can you please notify the patient's half-way facility of this recommendation? I also recommend rechecking the patient's WBC count, as this was elevated on 11/04/23. I placed an order for this if you could please fax it to the SNF and let them know. [facility] 11-21-2023 Telephone encounter Note I will review. Thank you. [facility] 11-21-2023 Miscellaneous Notes I will review. Thank you. At the patient's appointment in 09/2023, labs were ordered (CBC, CMP, IgG, CRP, and ESR). Facility staff stated they were going to have these results faxed to us at the patient's appointment two days ago. Can you check if we have received these please? If the patient did not have them drawn or we cannot locate the results, I will reorder them. documented in this encounter [facility] 11-21-2023 Telephone encounter Note At the patient's appointment in 09/2023, labs were ordered (CBC, CMP, IgG, CRP, and ESR). Facility staff stated they were going to have these results faxed to us at the patient's appointment two days ago. Can you check if we have received these please? If the patient did not have them drawn or we cannot locate the results, I will reorder them. [facility] 11-19-2023 History of Present illness Narrative Images from the original note were not included. Elaine Huggins NP Chief Complaint Patient presents with Multiple Sclerosis Subjective Donna Mathews is a 63 y.o. female. HPI The patient presents today for follow up. She is accompanied by an aide. She had an MRI of the brain completed for review. Labs were also ordered at the previous appointment. The aide who accompanies the patient today states the patient did have these completed, but she will have to ask the SNF to fax results over to our office. The patient resides at [facility]. She denies any signs or symptoms of MS exacerbation since the prior appointment. In particular, she denies double vision, vision loss, change in vision, dizziness, cognitive changes, difficulty speaking, numbness, or paresthesias. She has chronic lower extremity weakness and presents in a wheelchair again today. She states she does not ambulate. Her next Ocrevus infusion is scheduled for 11/22/2023. The patient experiences low back pain approximately once per week. She has intermittent left-sided neck pain which can radiate to the bilateral shoulders. She denies upper extremity weakness. She follows with pain management and has not completed any physical therapy recently. She follows with urology for urinary incontinence. The patient and the aide deny any new concerns. Review of Systems Constitutional: Positive for fatigue. Negative for appetite change, chills, fever and unexpected weight change. HENT: Positive for hearing loss. Negative for trouble swallowing and voice change. Eyes: Negative for visual change, double vision, or loss of vision Respiratory: Negative for cough, shortness of breath and wheezing. Cardiovascular: Negative for chest pain and palpitations. Gastrointestinal: Negative for abdominal pain, blood in stool, nausea and vomiting. Genitourinary: Positive for decreased urine volume (patient attributes to hemodialysis). Negative for dysuria, flank pain and hematuria. Musculoskeletal: Positive for arthralgias, back pain, gait problem (non-ambulatory) and neck pain. Negative for myalgias. Positive for torn rotator cuff on the left (follows with pain management, previously saw orthopedic surgery who did not recommend surgery) Neurological: Positive for weakness. Negative for dizziness, tremors, seizures, syncope, facial asymmetry, speech difficulty, light-headedness, numbness and headaches. Psychiatric/Behavioral: Negative for confusion, hallucinations and suicidal ideas. The patient is not nervous/anxious. Medication List acetaminophen 325 MG tablet; Commonly known as: Tylenol ACIDOPHILUS PO atorvastatin 80 MG tablet; Commonly known as: Lipitor biotin 1000 MCG tablet CALCIUM CARBONATE PO carboxymethylcellulose 1 % ophthalmic solution CertaVite/Antioxidants tablet cholecalciferol 50 MCG (2000 UT) tablet; Commonly known as: Vitamin D-3 famotidine 20 MG tablet; Commonly known as: Pepcid lactulose 10 GM/15ML solution; Commonly known as: Chronulac Lokelma 10 g packet; Generic drug: sodium zirconium cyclosilicate LUTEIN PO Menthol (Topical Analgesic) 4 % gel midodrine 5 MG tablet; Commonly known as: Proamatine midodrine 10 MG tablet; Commonly known as: Proamatine modafinil 100 MG tablet; Commonly known as: Provigil nystatin 031429 UNIT/GM powder; Commonly known as: Mycostatin OXcarbazepine 300 MG tablet; Commonly known as: Trileptal oxyCODONE 5 MG immediate release tablet; Commonly known as: Roxicodone pregabalin 75 MG capsule; Commonly known as: Lyrica EDWIN-LOLIS RX PO sertraline 25 MG tablet; Commonly known as: Zoloft sevelamer carbonate 800 MG tablet; Commonly known as: Renvela traZODone 25 MG split tablet; Commonly known as: Desyrel Past Medical History: Diagnosis Date Back pain 12/11/2017 Backache 11/08/2014 Carpal tunnel syndrome 06/02/2012 DDD (degenerative disc disease), lumbar 10/01/2017 Debility 12/11/2017 Demyelinating disease of central nervous system (HCC) ([facility]) 06/06/2007 Disturbance of skin sensation 06/02/2012 Enthesopathy of hip region 04/13/2016 ESRD on hemodialysis ([facility]) Facet arthritis of lumbar region 03/06/2018 Fatigue 10/01/2017 Lack of coordination 07/27/2010 Lesion of ulnar nerve 06/02/2012 Lymphedema 07/31/2011 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 Social History Tobacco Use Smoking status: Never Smokeless tobacco: Never Substance Use Topics Alcohol use: Never Allergies: Patient has no known allergies. Vitals: 11/19/23 1512 BP: 126/72 There is no height or weight on file to calculate BMI. Neurologic exam: Mental status: Awake and alert with unlabored respirations. Oriented to person, place and time. Recent and remote memory are intact. Speech is clear and fluent without aphasia. Attention and concentration are normal. Fund of knowledge is appropriate for level of education. Obese. Cranial nerves: CN II: Visual acuity is normal. Visual pate full to confrontation. CN III, IV, : Pupils are equal, round and reactive to light. Extraocular movements intact. No ptosis present. CN V: Facial sensation is normal. CN VII: Full and symmetric facial movement. CN VIII: Hearing is decreased bilaterally. CN IX and X: Palate elevates symmetrically. CN XI: Shoulder shrug is normal bilaterally. CN XII: Tongue is midline without atrophy or fasciculation. Motor: RUE strength deltoid , biceps , triceps , wrist extensors , wrist flexor , and indigo vat tender cloth strength 5/5. LUE deltoid strength 4/5. Biceps , triceps , wrist extensors , wrist flexor , and indigo vat tender cloth strength 5/5. RLE strength iliopsoas, quadriceps, tibialis anterior, plantar flexion, and dorsiflexion strength 2/5. LLE strength iliopsoas, quadriceps, tibialis anterior, plantar flexion, and dorsiflexion strength 2/5. Tone and bulk are normal. Sensory: Sensation is intact to light touch throughout all four extremities. Reduced in the distal lower extremities. Sensation is intact to temperature in all extremities. Reduced in the distal lower extremities. Reflexes: RUE biceps reflex 2+ , brachioradialis reflex 2+. LUE biceps reflex 2+ , brachioradialis reflex 2+. RLE Knee reflex 0. LLE Knee reflex 0. Coordination: Sstbyv-my-hybq testing normal. Rapid alternating movements are normal in the upper extremities. Gait: Not assessed. The patient presents in a wheelchair today and is reportedly nonambulatory. Review and summary of old records: MRI of the brain w/o contrast at [facility] on 11/11/23: No discrete acute intracranial abnormality identified. Multiple T2 signal abnormality throughout the supratentorial white matter, compatible with the patient's diagnosis of multiple sclerosis, stable since 04/12/22. With the limitation of lack of IV contrast, no evidence for interval progression or active demyelination is identified. There is moderate generalized cerebral volume loss. Labs on 11/04/23: CBC with hemoglobin 9.0, RBC count 2.93, hematocrit 27.6%, and RDW 19.9. WBC count 12.7. CMP with GFR 6, creatinine 6.90, BUN 67, calcium 8.0, protein 5.8, and albumin 3.2 - patient to follow up with PCP and nephrology. History of CKD on hemodialysis. Labs on 11/04/23: ESR and CRP 26 (elevated but improved from prior; may be secondary to MS. The patient denies any fevers or acute illness/infection recently). Serum IgG 899. Absolute lymphocyte count 1,000. Labs on 06/01/23: CBC with hemoglobin 8.6, RBC count 2.76 and hematocrit 25%. BMP unremarkable aside from GFR 13, creatinine 3.70 and calcium 7.9 - patient to follow up with PCP and nephrology. History of CKD on hemodialysis. MRI brain with and without contrast from [facility] on 04/13/2022: Grossly stable prominent T2 hyperintensities within. Ventricular deep white matter consistent with a mass. No new findings or evidence to suggest active demyelination. Grossly stable mild atrophy. Labs on 03/23/2022: CRP 49.7 (H). ESR 43 (H). MRI cervical spine with and without contrast from [facility] on 10/11/20: C5-C6 market central canal bilateral foramen narrowing secondary to degenerative disc disease and degenerative facet arthropathy. Multilevel moderate narrowing. Examination limited by motion, but no appreciable enhancing lesions to suggest active demyelination. MRI brain with and without contrast from [facility] on 10/10/20: Moderate to severe nonspecific flare signal abnormality to the supratentorial white matter, compatible with reported multiple sclerosis. There is moderate diffuse cerebral atrophy with concordant prominence of the ventricles. No abnormal enhancement, restricted diffusion or periventricular black holes. MRI lumbar spine w/wo contrast at [facility] on on 09/19/20: Posterior decompression of L4 and L5 vertebral bodies. Posterior mechanical stabilization of L3-L4-L5-S1. Multilevel moderate marked-foramen narrowing predominantly due to facet arthropathy, but degenerative disc disease and scoliotic curvature contribute. Moderate canal narrowing of the upper lumbar spine. MRI brain with and without contrast at [facility] on 09/12/19: There is periventricular and subcortical white matter T2 and T2 FLAIR hyperintense signal which is nonspecific. Given the history of multiple sclerosis, these may represent demyelinating lesions. There is no diffusion restriction. There is no abnormal postcontrast enhancement. There is diffuse age-related cortical atrophy, similar to the prior CT. Atrophy slightly more focally pronounced along the frontal lobes bilaterally. MRA brain w/wo contrast at [facility] on 09/12/19: No focal stenosis, occlusion, or aneurysmal dilatation. Carotid ultrasound at [facility] on 09/12/19: Mild plaque formation is noted bilaterally, with less than 50% stenosis of both extracranial internal carotid arteries. Both vertebral arteries are patent with antegrade flow. Echocardiogram from [facility] on 09/12/19: Left ventricular size, thickness, and function are normal with EF of 55-60%. Assessment/Plan Diagnoses and all orders for this visit: MS (multiple sclerosis) ([facility]) History of MS with fatigue, bilateral lower extremity weakness, and paresthesias. The patient does have lumbosacral radiculopathy which is likely contributing to her lower extremity weakness. She was previously on Tysabri. She is currently on Ocrevus which was started in July 2020. MRI of the brain from October 2020 was stable without any active demyelination, and MRI of the cervical spine did not show any MS lesions. MRIs of the brain on 04/12/22 and 11/11/23 again revealed stability of MS lesions with no evidence of disease progression or active demyelination. The patient denies any apparent signs or symptoms of MS exacerbation since the prior neurology appointment. PLAN: - Continue treatment with Ocrevus IV every 6 months - May continue modafinil 100 mg by mouth once a day for MS-related fatigue (prescribed by outside provider) Encounter for medication monitoring Ocrevus use. Labs from 11/04/23 revealed normal absolute lymphocyte count and serum IgG. Labs did identify anemia, elevated creatinine, reduced GFR, and electrolyte abnormalities, but I suspect these may be secondary to hemodialysis. I recommend the patient follow up with her primary care provider and nephrology for monitoring and management of these lab abnormalities. PLAN: - Risks of treatment including but not limited to opportunistic infection, malignancy, YASMANI virus infection leading to PML, colitis, infusion reaction, allergic reaction, liver disease, and others have been discussed. The patient understands the potential risks associated with this Ocrevus and wishes to continue use Radiculopathy, lumbosacral region History of lumbosacral radiculopathy. Epidural injections via Dr. Bogdan Solorzano and pain management were effective for symptom management in the past. MRI of the lumbar spine revealed surgical changes with multilevel moderate to severe neuroforaminal narrowing and moderate central canal narrowing in the upper lumbar spine. The patient does not wish to pursue any further surgical intervention for her symptoms, and her low back pain has been well controlled recently. PLAN: - Follow up with pain management for treatment Weakness of both lower extremities Likely secondary to MS with concurrent lumbosacral radiculopathy. She is nonambulatory. PLAN: - Referral to physical therapy for evaluation and treatment. Consideration of nonweightbearing exercises to help increase strength Cervical radiculopathy The patient reports posterior neck pain and previously mentioned paresthesias in the upper extremities. MRI of the cervical spine on 10/11/20 revealed marked central canal narrowing and neuroforaminal narrowing at C5-C6 with moderate narrowing at other levels. The patient was evaluated by neurosurgery who did not believe she was a good surgical candidate due to medical comorbidities. They, therefore, referred her to Dr. Galindo (pain management). PLAN: - Follow up with pain management for treatment Anxiety and depression ([facility]) PLAN: - Follow up with psychiatry for management Orders placed via facility paperwork. Diagnosis and treatment options discussed in detail. All questions answered. The patient and staff member verbalize understanding and are agreeable to the plan. Discussion in layman's terms. Follow up in the office within 3 to 4 months; sooner if needed for new or worsening symptoms. Elaine Huggins NP [facility] Advanced Neurology documented in this encounter [facility] 10-30-2023 Telephone encounter Note Pregabalin sent for this spring patient. [facility] 10-30-2023 Miscellaneous Notes Pregabalin sent for this spring patient. documented in this encounter [facility] 10-21-2023 History of Present illness Narrative Images from the original note were not included. [facility] [address] [place] [id number] 10/21/2023 Chief Complaint Patient presents with Follow-up Subjective/Interval events: Donna Mathews is a 62 y.o. year old female who is an established patient seen today in the Hematology/Medical Oncology clinic. Presents for follow up visit for anemia of chronic disease. Patient states she canceled her last appointment for follow up because she did not understand why she needed to come to clinic. Discussed with patient that we were following for anemia, which is low blood counts, and that we wound monitor vs. Treat based based on her blood work. She is amenable to this. She tells me that she is waiting on clearance from nephrology to schedule her colonoscopy. Nephrology does rounds in November at [facility]. She reports that she is getting dialysis 5 days per week via LUE fistula at the [facility]. No signs of bleeding at the site. Patient denies any complications with treatments. She states she gets labs once a week with dialysis. Not currently taking any iron supplementation per the medication list provided by [facility]. She is not receiving and IV iron treatments at this time. Energy levels are normal. Sleeps about 3 hours at a time. She is wheelchair bound and needs assistance with ADLs and getting in and out of bed. She uses a motorized wheelchair for ambulation. Denies CP, SOB, palpitation. Blood noticed in stool per staff at [facility] that was occult positive. Currently undergoing GI workup. Colonoscopy needs scheduled at this time. Denies leg cramps, does eat crushed iced but states it is not a craving. History of Present Illness: Mrs. Mathews is a 61 y.o. female with history of chronic renal insufficiency, [facility] resident from [facility] [place]. The patient was referred to Hematology for chronic anemia. Her most recent CBC showed hemoglobin down to 6.9 08/28/2022. The patient is currently taking baby aspirin. Her creatinine baseline is close to 3-4, initially was not on dialysis. The patient denies any significant shortness of breath or chest pain. She complains about chronic fatigue. She received 1 unit of PRBCs per [facility] in 08/2022. She was to follow up in the fall 2022, but was lost to follow up. Review of Symptoms as below unless otherwise stated in HPI ECO- Symptomatic; fully ambulatory -- patient is wheelchair bound at baseline Physical exam: Vitals: BP 118/68 Pulse 80 Temp 36.7 C (98.1 F) Resp 16 Ht 165.1 cm (5' 5 ) Wt (!) 140.5 kg (309 lb 12.8 oz) SpO2 100% BMI 51.55 kg/m Body mass index is 51.55 kg/m . Wt Readings from Last 3 Encounters: 10/21/23 (!) 140.5 kg (309 lb 12.8 oz) 10/04/23 136.1 kg (300 lb) 06/18/23 (!) 142.4 kg (314 lb) Physical Exam Constitutional: Appearance: Normal appearance. She is obese. [place]. Cardiovascular: Rate and Rhythm: Normal rate and regular rhythm. Pulses: Normal pulses. Heart sounds: Normal heart sounds. Pulmonary: Effort: Pulmonary effort is normal. Breath sounds: Normal breath sounds. Abdominal: General: Abdomen is obese. Bowel sounds are normal. Palpations: Abdomen is soft, non-tender Musculoskeletal: General: Decreased ROM due to body habitus and other co-morbidities. Cervical back: Normal range of motion and neck supple. Skin: General: Skin is warm and dry. PRECIOUS wraps on BLE. Skin is generalized stark color. Capillary Refill: Capillary refill takes less than 2 seconds. Neurological: General: No focal deficit present. Mental Status: He is alert and oriented to person, place, and time. Mental status is at baseline. Psychiatric: Mood and Affect: Mood normal. Behavior: Behavior normal. Thought Content: Thought content normal. Judgment: Judgment normal. Recent labs: Labs scanned into media. Problem list: Problem List Items Addressed This Visit Genitourinary Chronic renal impairment, stage 4 (severe) ([facility]) Hematopoietic and Hemostatic Anemia of chronic disease - Primary Relevant Orders CBC auto differential Iron and TIBC Ferritin Erythropoietin Other Personal history of DVT (deep vein thrombosis) Relevant Orders CBC auto differential Iron and TIBC Ferritin Erythropoietin Other Visit Diagnoses ESRD (end stage renal disease) on dialysis ([facility]) Relevant Orders CBC auto differential Iron and TIBC Ferritin Erythropoietin Low hemoglobin Relevant Orders CBC auto differential Iron and TIBC Ferritin Erythropoietin Impression: #. Normocytic anemia likely due to anemia of chronic disease ESRD on HD Ferrous sulfate 325 mg daily with vitamin C 500 mg daily 10/15/2023 --> HGB 9.7, HCT 31.8, ferritin 964, iron 67, iron sat 26, tibc 260 No EPO level was drawn #. ESRD on HD MWF Cr 4.88 on 10/15/2023 Plan: EPO level to next labs (get with weekly HD labs at [facility]) Add Aranesp if EPO level is low, patient is not iron deficient at this time Aranesp treatment will be every 2 weeks for goal HGB above 8.0 Monitor for bleeding, if bleeding increases please go to ER for evaluation Schedule colonoscopy per GI once cleared by nephrology Follow up with other specialities as needed Follow up in 6 months with labs prior CBC-d, iron studies, ferritin Thank you for allowing me to participate in this patient's care. GINA COTTO 10/21/2023 11:56 AM Total time spent was 35 minutes: Preparing to see the patient (e.g., review of tests) Obtaining and/or reviewing separately obtained history Performing a medically appropriate examination and/or evaluation Counseling and educating the patient/family/caregiver Ordering medications, tests, or procedures Referring and communicating with other health childcare aide (not separately reported) Documenting clinical information in the electronic or other health record Independently interpreting results (not separately reported) and communicating results to the patient/family/caregiver Care coordination (not separately reported) ----- Please note that portions of this note may have been generated using voice recognition [employer] dictation software. Although every effort was made to ensure the accuracy of any automated transcriptions, some errors may have occurred. GINA Cotto 10/21/23 1205 [facility] Instructions GINA Cotto - 10/21/2023 11:30 AM EDT EPO level to next labs (get with weekly HD labs at [facility]) Add Aranesp if EPO level is low, patient is not iron deficient at this time Aranesp treatment will be every 2 weeks for goal HGB above 8.0 Monitor for bleeding, if bleeding increases please go to ER for evaluation Schedule colonoscopy per GI once cleared by nephrology Follow up with other specialities as needed Follow up in 6 months with labs prior CBC-d, iron studies, ferritin [facility] History of Present illness Narrative [facility] Follow Up Visit CHIEF COMPLAINT: Chief Complaint Patient presents with Colon Cancer Screening Patient is here to discuss a colonoscopy. HISTORY OF PRESENT ILLNESS: Donna Mathews is a 62 y.o. female with PMH of CHF, DVT, diabetes, multiple sclerosis, hyperlipidemia, GERD, neuromuscular dysfunction of bladder, stroke, hearing impairment, ESRD, Anemia of chronic disease. Patient initially seen by Dr. Wise on 06/18/2023 to discuss colonoscopy for colon cancer screening. At the time patient apparently has been seen at [facility] due to reports of a positive fit test and was advised to have colonoscopy done at the hospital where she receives dialysis. She was also following up with Hematology/Oncology for anemia secondary to chronic disease on Aranesp. She reported to lifetime colonoscopies with no knowledge of prior polyps, no family history of colon cancer although per chart review there was mention colon cancer in a cousin, not currently on anticoagulation. She denied any blood in stool. At this time due to unclear indication for colonoscopies Dr. Wise recommended obtaining records from [facility] and have patient follow-up to reassess as needed for colonoscopy. Colonoscopy 03/14/2018 by TREVER Parson. Normal colonoscopy to cecum with recommendations repeat in 5 years due to family history of colon cancer. Patient presents today with facility account manager sales representative. She did have positive occult blood stools in June of this year which were brought by account manager sales representative. She however denies any overt blood in stool or any other GI symptoms. She states that she gets stomach upset she has certain foods such as spicy foods but nothing chronic. She received MiraLax daily and has bowel movements every day. Denies any constipation or diarrhea. REVIEW OF SYSTEMS: A ten point review of systems was obtained, and all were normal except for those listed in above HPI. ALLERGIES: Patient has no known allergies. Current Medications: Current Outpatient Medications: acetaminophen (TYLENOL) 325 mg tablet, Take 2 tablets (650 mg total) by mouth every 6 (six) hours as needed for pain., Disp: , Rfl: acidophilus-pectin, citrus 25 million cell -100 mg tablet, Take 1 tablet by mouth daily with breakfast., Disp: , Rfl: biotin 1 mg tablet, Take 1 tablet (1 mg total) by mouth in the morning., Disp: , Rfl: carboxymethylcellulose sodium (ARTIFICIAL TEARS, CMC,) 1 % drops, Administer 1 drop to both eyes in the morning and 1 drop before bedtime., Disp: , Rfl: famotidine (PEPCID) 20 mg tablet, Take 1 tablet (20 mg total) by mouth once daily at bedtime., Disp: , Rfl: famotidine (PEPCID) 20 mg tablet, Take 1 tablet (20 mg total) by mouth daily as needed (GERD)., Disp: , Rfl: lactulose (CHRONULAC) 10 gram/15 mL solution, Take 30 mL (20 g total) by mouth daily as needed (constipation)., Disp: , Rfl: LUTEIN ORAL, Take 1 tablet by mouth in the morning., Disp: , Rfl: menthol (BIOFREEZE, MENTHOL,) 4 % gel, Apply 1 Application topically every 8 (eight) hours as needed (pain)., Disp: , Rfl: midodrine (PROAMATINE) 10 mg tablet, Take 1 tablet (10 mg total) by mouth daily., Disp: , Rfl: midodrine (PROAMATINE) 5 mg tablet, Take 1 tablet (5 mg total) by mouth daily as needed (as needed for hypotension MID dialysis for SBP < 120)., Disp: , Rfl: modafiniL (PROVIGIL) 100 mg tablet, Take 1 tablet (100 mg total) by mouth in the morning., Disp: , Rfl: polyethylene glycol (GLYCOLAX) 17 gram/dose powder, Take 17 g by mouth in the morning., Disp: , Rfl: A/C/E/zinc ox/cupric ox/lutein (OCULAR VITAMINS ORAL), Take 1 tablet by mouth in the morning. (Patient not taking: Reported on 08/01/2023), Disp: , Rfl: aspirin 81 mg, Take 1 tablet (81 mg total) by mouth in the morning. (Patient not taking: Reported on 05/30/2023), Disp: , Rfl: atorvastatin (LIPITOR) 80 mg tablet, Take 1 tablet (80 mg total) by mouth once daily at bedtime., Disp: , Rfl: B complex-vitamin C-folic acid (RENAL-LOLIS) 0.8 mg tablet, Take 1 tablet by mouth in the morning. (Patient not taking: Reported on 06/14/2023), Disp: , Rfl: calcium carbonate (OS-NAIMA) 500 mg elemental (1,250 mg) chewable tablet, Chew 2 tablets (1,000 mg total) and swallow. Take , , Sat (she takes the medication with her on dialysis day) (Patient not taking: Reported on 05/30/2023), Disp: , Rfl: calcium carbonate (TUMS) 200 mg elemental (500 mg) chewable tablet, Chew 2 tablets (400 mg total) and swallow in the morning. (Patient not taking: Reported on 06/14/2023), Disp: , Rfl: carvediloL (COREG) 6.25 mg tablet, Take 0.5 tablets (3.125 mg total) by mouth in the morning and 0.5 tablets (3.125 mg total) in the evening. Take with meals. (Patient not taking: Reported on 05/02/2023), Disp: , Rfl: cholecalciferol (VITAMIN D3) 1,000 units tablet, Take 1 tablet (1,000 Units total) by mouth in the morning. (Patient not taking: Reported on 05/30/2023), Disp: 30 tablet, Rfl: 3 cholecalciferol, vitamin D3, 2,000 units tablet, Take 1 tablet (2,000 Units total) by mouth in the morning. (Patient not taking: Reported on 06/14/2023), Disp: , Rfl: melatonin (CIRCADIN) tablet, Take 1 tablet (3 mg total) by mouth nightly. (Patient not taking: Reported on 05/02/2023), Disp: , Rfl: nut.tx.imp.renal fxn,lac-reduc (NEPRO CARB STEADY) 0.08 gram-1.8 kcal/mL liquid, Take 237 fluid ounces by mouth daily after dinner. (Patient not taking: Reported on 05/02/2023), Disp: , Rfl: nystatin (MYCOSTATIN) powder, Apply 1 Application topically in the morning and 1 Application before bedtime. (Patient not taking: Reported on 08/01/2023), Disp: , Rfl: omega-3 fatty acids 500 mg capsule, Take 1,500 mg by mouth once daily at bedtime. (Patient not taking: Reported on 05/02/2023), Disp: , Rfl: OXcarbazepine (TRILEPTAL) 300 mg tablet, Take 1 tablet (300 mg total) by mouth in the morning and 1 tablet (300 mg total) before bedtime. (Patient not taking: Reported on 08/01/2023), Disp: , Rfl: oxyCODONE (ROXICODONE) 5 mg immediate release tablet, Take 0.5 tablets (2.5 mg total) by mouth every 8 (eight) hours as needed for pain. (Patient not taking: Reported on 08/01/2023), Disp: , Rfl: pregabalin (LYRICA) 75 mg capsule, Take 1 capsule (75 mg total) by mouth once daily at bedtime. (Patient not taking: Reported on 08/01/2023), Disp: , Rfl: EDWIN-LOLIS RX 1-60-300 mg-mg-mcg tablet, Take 1 tablet by mouth in the morning. (Patient not taking: Reported on 08/01/2023), Disp: , Rfl: sennosides-docusate sodium (SENOKOT-S) 8.6-50 mg, Take 1 tablet by mouth every 12 (twelve) hours as needed for constipation. (Patient not taking: Reported on 08/01/2023), Disp: , Rfl: sertraline (ZOLOFT) 25 mg tablet, Take 1 tablet (25 mg total) by mouth in the morning. (Patient not taking: Reported on 08/01/2023), Disp: , Rfl: sevelamer (RENVELA) 800 mg tablet, Take 3 tablets (2,400 mg total) by mouth in the morning and 3 tablets (2,400 mg total) at noon and 3 tablets (2,400 mg total) in the evening. Take with meals. (Patient not taking: Reported on 08/01/2023), Disp: , Rfl: sodium zirconium cyclosilicate (LOKELMA) 10 gram packet, Take 10 g by mouth in the morning. (Patient not taking: Reported on 06/14/2023), Disp: , Rfl: trazodone HCl (TRAZODONE ORAL), Take 25 mg by mouth nightly. (Patient not taking: Reported on 08/01/2023), Disp: , Rfl: VENOFER 100 mg iron/5 mL injection, Infuse 5 mL (100 mg total) into a venous catheter. (Patient not taking: Reported on 05/02/2023), Disp: , Rfl: I reviewed and reconciled this patient's medication list today. The list included in this note is the most up to date list that I can attest to at this time based on the information that the patient has provided me and the electronic medical record. PAST MEDICAL, SOCIAL AND FAMILY HISTORY: Past Medical History: Past Medical History: Diagnosis Date Anemia Anemia of chronic disease 08/30/2022 Anxiety AV fistula stenosis ([facility]) 04/01/2023 Charcot's arthropathy 03/27/2013 Charcot's joint CHF (congestive heart failure) ([facility]) Chronic indwelling Douglas catheter 09/13/2022 Chronic kidney disease Chronic renal impairment, stage 4 (severe) ([facility]) 08/30/2022 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 Deep vein thrombosis ([facility]) RLE Dermatitis associated with moisture 09/14/2022 Diabetes mellitus type 2, controlled ([facility]) Dialysis patient ([facility]) End stage renal disease ([facility]) 09/05/2022 ESRD (end stage renal disease) ([facility]) 09/13/2022 Family history of MS (multiple sclerosis) 09/13/2022 GERD (gastroesophageal reflux disease) Hyperlipidemia Leukocytosis 09/13/2022 Lymphedema Morbid obesity ([facility]) 09/13/2022 MS (multiple sclerosis) ([facility]) 09/13/2022 Multiple sclerosis ([facility]) Neuromuscular dysfunction of bladder Obesity Personal history of DVT (deep vein thrombosis) 09/29/2013 Stroke ([facility]) Tabes dorsalis Thrombocytopenia ([facility]) Traumatic ulcer of left lower extremity with fat layer exposed ([facility]) 09/14/2022 Traumatic ulcer of right lower extremity with fat layer exposed ([facility]) 09/14/2022 Past Surgical History: Past Surgical History: Procedure Laterality Date BARIATRIC SURGERY Catheter Placement N/A 09/07/2022 Performed by Angelique Mckinnon DO at [facility] CARDIAC CATH LABS CREATION ARTERIOVENOUS FISTULA UPPER EXTREMITY BRACHIAL CEPHALIC, EXPLORATION LEFT WRIST WITH REPAIR OF RADIAL ARTERY LEFT Left 10/31/2022 Performed by Braydon Rich MD at [facility] HEMODIALYSIS INPATIENT 05/31/2023 LIPECTOMY AVF Left 02/25/2023 Performed by Krystin Salcedo MD at [facility] Family History: Family History Problem Relation Age of Onset Breast cancer Cousin Colon cancer Maternal cousin SOCIAL HISTORY: Social History Tobacco Use Smoking status: Never Smokeless tobacco: Never Vaping Use Vaping status: Never Used Substance Use Topics Alcohol use: Not Currently Comment: rare Drug use: Never PHYSICAL EXAM: Ht 165.1 cm (5' 5 ) Wt 136.1 kg (300 lb) BMI 49.92 kg/m Body mass index is 49.92 kg/m . Limited exam due to body habitus in electric wheelchair GEN: alert and oriented HEENT:oropharynx non-erythematous without exudate, no oral lesions; conjunctiva pink and normal appearing. Hard of hearing CV: RRR, lower extremity lymphedema noted PULM: No respiratory distress ABD: soft, non-tender, +BS NEURO: no focal deficits DATA: CBC: Lab Results Component Value Date WBC 7.9 06/01/2023 HGB 8.6 (L) 06/01/2023 HCT 25.0 (L) 06/01/2023 MCV 92 06/01/2023 RDW 19.2 (H) 06/01/2023 PLT 150 06/01/2023 CMP: Lab Results Component Value Date K 3.9 06/01/2023 K 5.2 (H) 02/25/2023 CL 98 06/01/2023 CO2 29 06/01/2023 BUN 26 06/01/2023 GLU 93 06/01/2023 FOLATE: Lab Results Component Value Date FOLATE >25.0 09/14/2022 HgBA1c: Lab Results Component Value Date HGBA1C 5.5 09/14/2022 Iron Studies: Lab Results Component Value Date TIBC 197 (L) 09/14/2022 FERRITIN 666 (H) 09/14/2022 PT/INR: Lab Results Component Value Date INR 1.1 01/13/2021 TSH: Lab Results Component Value Date TSH 1.42 09/14/2022 VITAMIN B12: No components found for: B12 25 Hydroxy Vitamin D Level: No components found for: VITDTOTAL DIAGNOSTIC STUDIES REVIEWED: As noted in the HPI ASSESSMENT AND PLAN: Donna Mathews is a 62 y.o. female with PMH of CHF, DVT, diabetes, multiple sclerosis, hyperlipidemia, GERD, neuromuscular dysfunction of bladder, stroke, hearing impairment, ESRD, Anemia of chronic disease. Patient presents today for follow-up for re-evaluation for colonoscopies. She presented with stool studies from June of this year which were positive for occult blood. In addition records from last colonoscopy were reviewed as below: Colonoscopy 03/14/2018 by TREVER Parson. Normal colonoscopy to cecum with recommendations repeat in 5 years due to family history of colon cancer. Recommend proceeding with colonoscopy at this time. Patient does have hemodialysis every day so will need to coordinate possible hemodialysis at the hospital after colonoscopy pending Nephrology recommendations. Positive occult blood CRC screening Plan: Needs clearance from Nephrology for colonoscopy, ESRD on HD daily. Dr. Hector Chambers, [facility] nephrology. Need clarification on timing of dialysis on day before and day of colonoscopy so this can be arranged if it needs to be done after colonoscopy. Colonoscopy with Dr. Wise at [facility] with MAC, ASA 3 (end stage renal disease on dialysis) [place] [address] PH: [phone] Patient to follow with Glenna Salazar PA-C and Dr. Wise. This note is dictated with the use of M*Modal.Please note that this dictation was completed with computer voice recognition software. Quite often unanticipated grammatical, syntax, homophones, and other interpretive errors are inadvertently transcribed by the computer software. Please disregard these errors. Please excuse any errors that have escaped final proofreading. Glenna Salazar PA-C 10/04/23 1112 documented in this encounter [facility] 10-04-2023 Instructions Glenna Salazar PA-C - 10/04/2023 10:30 AM EDT Plan: We will request clearance from nephrology and aid in timing of dialysis. May need to arrange dialysis at [facility] on day of colonoscopy pending nephrology recs. Colonoscopy with Dr Wise at [facility] pending clearance from nephrology. We will call facility to schedule once clearance is obtained documented in this encounter [facility] 08-16-2023 Note SWETA REM DICKSON CENT VE N ACCESS DEVICE History: remove [...] Vic Nickerson MD on 08/16/2023 2:53 PM [facility] 08-02-2023 Miscellaneous Notes When patient came back from her appt with Dr Salcedo yesterday she told them she needs to make a surgery appt to get her TDC out. I did ask Gretta about it and she has not been given any information about it yet. If so, we can reach out to Ada (I am hoping I got her name mostly correct) at [phone]. If no procedure needed, we could move her Nov appt up as Dr wanted her to follow up in 3 months. documented in this encounter [facility] 08-02-2023 Telephone encounter Note When patient came back from her appt with Dr Salcedo yesterday she told them she needs to make a surgery appt to get her TDC out. I did ask Gretta about it and she has not been given any information about it yet. If so, we can reach out to Ada (I am hoping I got her name mostly correct) at [phone]. If no procedure needed, we could move her Nov appt up as wanted her to follow up in [address] [facility] 08-01-2023 History of Present illness Narrative Images from the original note were not included. Subjective Patient ID: Donna Mathews is a 62 y.o. female. Chief Complaint No chief complaint on file. HPI Donna returns for evaluation of her left upper arm primary AV fistula constructed by Dr. Guilherme Rich. This was made accessible by operative lipectomy months ago. Below is the photograph prior to authorization for dialysis unit to cannulate the construct. Below it is a photo of current status. The construct remains patent. The staff is still somewhat frayed of sequenced cannulation. Patient admits that there have been 1 or 2 infiltrations within the access. She is not certain whether a more proximal tourniquet is applied on each and every attempt at cannulation. . June 16, 2023. Postoperative status. Note bruising associated with cannulation and probable back walling. Objective Vitals BP 100/60 (BP Site: Right Forearm, BP Postition: Sitting, BP CUFF SIZE: M (9-13 inches)) Comment: unable to doc left due to fistula Physical Exam Physical Exam Patient remains wheelchair dependent. She has an excellent stark, having spent several days out in the sun. No sign of digital ischemia or central venous hypertension. Skin is in reasonably good shape. Palpable thrill. Good bruit by auscultation. Studies Reviewed BEDSIDE DUPLEX EXAMINATION shows the conduit to measure proximally 7 mm consistently throughout the cannulation zone. This extends a surprisingly long distance proximally. In the lower 3rd of the upper arm, there is a longitudinal collection of blood immediately below her vein, consistent with confined extravasation. This is likely the cause of her arm bruising. I suspect this is a post cannulation complication and emphasize the need for placement of a proximal tourniquet when the construct is used. There is no pseudoaneurysm identified, in no sign of impending graft failure. Good color flow seen throughout. Assessment Diagnoses and all orders for this visit: Morbid obesity ([facility]) End stage renal disease ([facility]) Plan Plan Overall, the left upper arm dialysis access construct is in good shape, save for the linear extraluminal hematoma identified on duplex ultrasound. This is a cannulation complication, and once more under scores the importance of a proximal tourniquet to forced distension of the fistula payne prior to cannulation. It may be difficult to apply the tourniquet, given the patient's large upper arm girth, but it is essential that this be done properly, and by experienced personnel. Donna has along with her, staff from the nursing facility where the dialysis is carried out. I have provided her set of instructions for her dialysis staff in terms of cannulation and placement of proper tourniquet distal to the deltopectoral groove. The patient's upper arm girth will not allow simple tourniquet placement, and a 2 person access group may be necessary. The staff is to contact me should there be problems with the conduit. It is important for the staff to feel more comfortable with cannulation so as to remove the tunneled dialysis catheter, which is the refill component of her current health issues. They will contact me if they have problems with this. I will have Donna follow-up in the [facility] area with Dr. Rich sometime in the next 3 or 4 months. She is to call should problems develop in the interim. [facility]-06-2023 Miscellaneous Notes Joseline from [facility] called regarding a procedure for this patient. In reading Dr. Salcedo's office note he referrred her to IR. I let the [facility] know, after calling IR that they have been trying to reach the [facility] to schedule. IR's number was given for the [facility] to call and schedule. [facility] 05-06-2023 Telephone encounter Note Joseline from [facility] called regarding a procedure for this patient. In reading Dr. Salcedo's office note he referrred her to IR. I let the [facility] know, after calling IR that they have been trying to reach the [facility] to schedule. [facility] number was given for [facility] to [facility] and schedule[facility] History of Present illness Narrative Images from the original note [...] of Study: 04/17/23 Ordering Provider: Ziyad Ulrich APRN-MARYAM Clinical Indications: ESRD (end stage renal disease) ([facility]) [N18.6 (ICD-10-CM)], A-V fistula ([facility]) [I77.0 (ICD-10-CM)] Interpreting Physicians Performing Staff [...] all orders for this visit: Morbid obesity ([facility]) ESRD (end stage renal disease) ([facility]) Arteriovenous fistula stenosis, initial encounter ([facility]) Plan Plan Will arrange for fistula g to be obtained. At the time of the patient's operation, the flow through the vein was much better, based on physical examination. We should rule out presence or absence of cecy anastomotic stenosis. A referral to interventional radiology [...] week. Patient will need to travel from [facility]. Their phone number is [phone]. documented in this encounter [facility] 04-01-2023 History of Present illness Narrative Images from the original note were not included. [facility] [address] [place] [id number] Subjective: Patient ID: Donna Mathews is a 62 y.o. female. Chief Complaint Chief Complaint Patient presents with Post-op Post/op A RESCHEDULE FROM 03-25-23 [facility] had no transport that day. This day was the first available for [place]. [facility] said they could only go to [place] or [place]. lipectomy by dr salcedo 02-25-23-dr rich pt. History of Present Illness: Donna Mathews has history of ESRD on hemodialysis S/p lipectomy of the left radiocephalic AV fistula on 02/25/[address] Salcedo, created by Dr. Rich on 10/31/2022. She has been dialyzing via a tunneled dialysis catheter 5 days per week. She denies fever, chills, diaphoresis and LUE numbness, paresthesia and pain. Patient Active Problem List Diagnosis Personal history of DVT (deep vein thrombosis) Closed fracture of femur with nonunion Charcot's arthropathy Anemia of chronic disease Chronic renal impairment, stage 4 (severe) ([facility]) End stage renal disease ([facility]) ESRD (end stage renal disease) ([facility]) Family history of MS (multiple sclerosis) Chronic indwelling Douglas catheter Leukocytosis Morbid obesity ([facility]) MS (multiple sclerosis) ([facility]) Traumatic ulcer of left lower extremity with fat layer exposed ([facility]) Traumatic ulcer of right lower extremity with fat layer exposed ([facility]) Dermatitis associated with moisture Lymphedema A-V fistula ([facility]) Current Outpatient Medications: acetaminophen (TYLENOL) 325 mg tablet, Take 2 tablets (650 mg total) by mouth every 6 (six) hours as needed for pain., Disp: , Rfl: acidophilus-pectin, citrus 25 million cell -100 mg tablet, Take 1 tablet by mouth daily with breakfast., Disp: , Rfl: aspirin 81 mg, Take 1 tablet (81 mg total) by mouth in the morning., Disp: , Rfl: atorvastatin (LIPITOR) 80 mg tablet, Take 1 tablet (80 mg total) by mouth in the morning., Disp: , Rfl: B complex-vitamin C-folic acid (RENAL-LOLIS) 0.8 mg tablet, Take 1 tablet by mouth in the morning., Disp: , Rfl: biotin 1 mg tablet, Take 1 tablet (1 mg total) by mouth in the morning., Disp: , Rfl: calcium carbonate (OS-NAIMA) 500 mg elemental (1,250 mg) chewable tablet, Chew 2 tablets (1,000 mg total) and swallow. Take , , Sat (she takes the medication with her on dialysis day), Disp: , Rfl: carboxymethylcellulose sodium (ARTIFICIAL TEARS, CMC,) 1 % drops, Administer 1 drop to both eyes in the morning and 1 drop before bedtime., Disp: , Rfl: carvediloL (COREG) 6.25 mg tablet, Take 0.5 tablets (3.125 mg total) by mouth in the morning and 0.5 tablets (3.125 mg total) in the evening. Take with meals., Disp: , Rfl: cholecalciferol (VITAMIN D3) 1,000 units tablet, Take 1 tablet (1,000 Units total) by mouth in the morning., Disp: 30 tablet, Rfl: 3 famotidine (PEPCID) 20 mg tablet, Take 1 tablet (20 mg total) by mouth once daily at bedtime., Disp: , Rfl: LUTEIN ORAL, Take 1 tablet by mouth in the morning., Disp: , Rfl: melatonin (CIRCADIN) tablet, Take 1 tablet (3 mg total) by mouth nightly., Disp: , Rfl: midodrine (PROAMATINE) 5 mg tablet, Take 1 tablet (5 mg total) by mouth before breakfast. On dialysis days 1 tab as needed for hypotension PRE dialysis in am, Disp: , Rfl: modafiniL (PROVIGIL) 100 mg tablet, Take 1 tablet (100 mg total) by mouth in the morning., Disp: , Rfl: nut.tx.imp.renal fxn,lac-reduc (NEPRO CARB STEADY) 0.08 gram-1.8 kcal/mL liquid, Take 237 fluid ounces by mouth daily after dinner., Disp: , Rfl: nystatin (MYCOSTATIN) powder, Apply 1 Application topically in the morning and 1 Application before bedtime., Disp: , Rfl: omega-3 fatty acids 500 mg capsule, Take 1,500 mg by mouth once daily at bedtime., Disp: , Rfl: OXcarbazepine (TRILEPTAL) 300 mg tablet, Take 1 tablet (300 mg total) by mouth in the morning and 1 tablet (300 mg total) before bedtime., Disp: , Rfl: oxyCODONE (ROXICODONE) 5 mg immediate release tablet, , Disp: , Rfl: pregabalin (LYRICA) 75 mg capsule, Take 1 capsule (75 mg total) by mouth once daily at bedtime., Disp: , Rfl: sennosides-docusate sodium (SENOKOT-S) 8.6-50 mg, Take 1 tablet by mouth every 12 (twelve) hours as needed for constipation., Disp: , Rfl: sertraline (ZOLOFT) 50 mg tablet, Take 1 tablet (50 mg total) by mouth in the morning., Disp: , Rfl: traZODone (DESYREL) 50 mg tablet, , Disp: , Rfl: VENOFER 100 mg iron/5 mL injection, Infuse 5 mL (100 mg total) into a venous catheter., Disp: , Rfl: The following portions of the patient's history were reviewed and updated as appropriate: allergies, current medications, past family history, past medical history, past social history, past surgical history and problem list. Objective: Vitals BP 140/69 (BP Site: Right Forearm, BP Postition: Sitting, BP CUFF SIZE: M (9-13 inches)) Pulse 84 SpO2 96% Physical Exam Physical Exam Constitutional: General: She is not in acute distress. Appearance: Normal appearance. She is obese. She is not ill-appearing or diaphoretic. HENT: Head: Normocephalic and atraumatic. Eyes: General: No scleral icterus. Right eye: No discharge. Left eye: No discharge. Conjunctiva/sclera: Conjunctivae normal. Cardiovascular: Rate and Rhythm: Normal rate and regular rhythm. Pulses: Radial pulses are 2+ on the right side and 1+ on the left side. Arteriovenous access: Left arteriovenous access is present. Comments: LUE AV fistula with weak thrill and bruit. R chest TDC with dressing CD&I Pulmonary: Effort: Pulmonary effort is normal. Breath sounds: Normal breath sounds. Musculoskeletal: Cervical back: Normal range of motion and neck supple. Right lower leg: No edema. Left lower leg: No edema. Comments: BLE wrapped, edema noted Neurological: Mental Status: She is alert. Psychiatric: Mood and Affect: Mood normal. Behavior: Behavior normal. Thought Content: Thought content normal. Judgment: Judgment normal. Studies Reviewed No results found. Assesment: Donna was seen today for post-op. Diagnoses and all orders for this visit: ESRD (end stage renal disease) ([facility]) - Vas dialysis access duplex; Future A-V fistula ([facility]) - Vas dialysis access duplex; Future Plan Plan: Obtain a dialysis access duplex and return in 2 weeks. She has been dialyzing via TDC without issue. She was advised to contact our office should any questions or concerns arise prior to her next visit. This note was created with the assistance of a speech recognition program. While intending to generate a timely document that accurately reflects the content of the visit, no guarantee can be provided that every grammatical or spelling mistake has been or will be identified or corrected. Thank you for your understanding. Ziyad Ulrich, GLOVE FACTORY SEWER-WINK CUTTER OPERATOR [facility] GINA Gonzalez 04/01/23 0930 documented in this encounter [facility] 03-05-2023 Miscellaneous Notes DARY CALLED TO CANCEL SHE DOES NOT WANT TO RESCHEDULE AT THIS TIME documented in this encounter [facility] 03-05-2023 Telephone encounter Note DARY CALLED TO CANCEL SHE DOES NOT WANT TO RESCHEDULE AT THIS TIME [facility] 06-08-2022 Note PROCEDURE: XR SHOULD ER LT 2V or > COMPARISON: None. HISTORY: Tear of left rotator cuff FINDINGS: BONES:No acute fracture or dislocation. Moderate acromioclavicular joint osteoarthropathy. Severe glenohumeral joint osteoarthritis SOFT TISSUES:Negative. No visible soft tissue swelling. EFFUSION:None visible. OTHER: Negative. IMPRESSION: Moderate to severe osteoarthritis Electronically authenticated by: EL SAUNDERS Date: 2022-06-08 07:41 [facility] 06-07-2022 Note CONSULTATION CONSULTATION DATE: 06/07/2022 [...] our patients to inform us about any ptxh-pbs-[id number] medications or herbal remedies/nutritional supplements/alternative remedies. 2. [...] options with their primary care provider. [facility] 04-12-2022 Note CONSULTATION CONSULTATION DATE: 04/12/2022 [...] 5'6 , weighs 299 pounds per the [facility] scale yesterday. FOCUSED EXAM - NECK: Range [...] Patient is in agreement to this. 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 That weight was obtained from [facility] records, as she was recently weighed. GENERAL [...] and the therapist to do at the [facility]. This includes a menthol heat rub to [...] continues to answer my questions appropriately. [facility] 10-31-2021 Note CONSULTATION CONSULTATION DATE: 10/31/2021 [...] is a poor historian, is in a [facility]. PHYSICAL EXAM: FOCUSED EVALUATION OF THE LEFT SHOULDER: The patient has fullness and tenderness along the left shoulder. Significant jump response is noted along the AC joint and also along he glenohumeral in flexion and abduction of the left shoulder. Athletic Trainer strength is maintained however poor. The patient has cervicothoracic kyphosis. The patient does ambulate with a motorized wheelchair. The patient is accompanied by her caregiver from the [facility]. IMPRESSION: Current additional working diagnosis on the [...] Kenia Beck but unable to verify) [facility] 10-31-2021 Note CONSULTATION PROCEDURE DATE: 10/31/2021 [...] up in the office as needed. [facility] 10-18-2021 Note CONSULTATION CONSULTATION DATE: 10/18/2021 This is a 60-year-old female with a history of MS who resides in a half-way facility. She is following up for a [...] 5'6 , weighs 320 pounds according to [facility] data. GENERAL APPEARANCE: Pleasant, appropriate, in no [...] agrees with this plan of care. [facility] [place] [address]-19-2022 Note CONSULTATION CONSULTATION DATE: 07/27/2021 This is [...] PLAN: An order was written for the half-way facility to apply menthol heat rub twice [...] of care and all questions were answered. [facility] Signed and Approved by: ABHINAV IGNACIO . 07/31/2021 15:07:00 [facility] 01-24-2021 Evaluation note Encounter Date Diagnosis [...] her ability to ambulate very very poor [facility] Other 06-15-2021 Miscellaneous Notes* Telephone Encounter - Alize Patton (Pss) - 08/23/2020 1:19 PM EDT Replied with phone number via my chart. * Telephone Encounter - Shahrzad Hannah [facility] - 08/22/2020 2:25 PM EDT Patient calling in regards to the [employer] company that provider advise patient call. States she ordered shoes and its been over a month but lost their number and has no way of getting in touch with them. Patient is requesting a call at [phone] Please advise. [facility] NoteHNO ID: [id number] Author: Quinten Lewis DPM Service: ? Author [...] patient may follow-up as needed pending progress. [facility] Center[facility] noteNo InformationNort 4vets Other evaluation noteNo assessment information available [facility] Work Phone: Evaluation note* Diagnosis Pain Generalized [facility] MS (multiple sclerosis) (CMS/HCC)- Primary Multiple sclerosis documented in this encounter [facility]* Diagnosis MS (multiple sclerosis) (CMS/HCC)- Primary Multiple sclerosis Encounter for medication monitoring Encounter for therapeutic drug monitoring Radiculopathy, lumbosacral region Thoracic or lumbosacral neuritis or radiculitis, unspecified Weakness of both lower extremities Cervical radiculopathy Brachial neuritis or radiculitis nos Anxiety and depression ([facility]) documented in this encounter [facility]* Diagnosis Encounter for medication monitoring- Primary Encounter for therapeutic drug monitoring documented in this encounter [facility]* Diagnosis Pain- Primary Generalized pain documented in this encounter [facility]* Diagnosis Chronic kidney disease- Primary Chronic kidney disease, unspecified Anemia Unspecified anemia Multiple sclerosis ([facility]) Multiple sclerosis CKD (chronic kidney disease) Chronic kidney disease, unspecified Pressure injury of right calf, stage 3 ([facility])- Primary Pressure injury of left calf, stage 2 ([facility]) 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 [facility]* Diagnosis Chronic kidney disease- Primary Chronic kidney disease, unspecified Anemia Unspecified anemia Multiple sclerosis ([facility]) Multiple sclerosis CKD (chronic kidney disease) Chronic kidney disease, unspecified Pressure injury of right calf, stage 3 (CMS-HCC)- Primary [facility]* Diagnosis Pain- Primary Generalized pain documented in this encounter [facility]* Diagnosis Chronic kidney disease- Primary Chronic kidney disease, unspecified Anemia Unspecified anemia Multiple sclerosis ([facility]) Multiple sclerosis CKD (chronic kidney disease) Chronic kidney disease, unspecified Preop examination- Primary Unspecified pre-operative examination Hypertension, unspecified type Chronic renal impairment, stage 4 (severe) ([facility]) BMI 45.0-49.9, adult ([facility]) Positive occult stool blood test- Primary Nonspecific abnormal finding in stool contents documented [facility]* Diagnosis Chronic kidney disease- Primary Chronic kidney disease, unspecified Anemia Unspecified anemia Multiple sclerosis ([facility]) Multiple sclerosis CKD (chronic kidney disease) Chronic kidney disease, unspecified Preop examination- Primary Unspecified pre-operative examination Hypertension, unspecified type Chronic renal impairment, stage 4 (severe) ([facility]) BMI 45.0-49.9, adult ([facility]) documented [facility]* Diagnosis Chronic kidney disease- Primary Chronic kidney disease, unspecified Anemia Unspecified anemia Multiple sclerosis ([facility]) Multiple sclerosis CKD (chronic kidney disease) Chronic kidney disease, unspecified Pressure injury of right calf, stage 3 ([facility])- Primary Pressure injury of left calf, stage 2 ([facility]) 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 Lymphedema Other noninfectious lymphedema documented in [facility]* Diagnosis Chronic kidney disease- Primary Chronic kidney disease, unspecified Anemia Unspecified anemia Multiple sclerosis ([facility]) Multiple sclerosis CKD (chronic kidney disease) Chronic kidney disease, unspecified Pressure injury of right calf, stage 3 ([facility])- Primary Pressure injury of left calf, stage 2 ([facility]) documented [facility]* Diagnosis Chronic kidney disease- Primary Chronic kidney disease, unspecified Anemia Unspecified anemia Multiple sclerosis ([facility]) Multiple sclerosis CKD (chronic kidney disease) Chronic kidney disease, unspecified ESRD (end stage renal disease) ([facility])- Primary End stage renal disease A-V fistula ([facility]) Arteriovenous fistula, acquired documented [facility]* Diagnosis Chronic kidney disease- Primary Chronic kidney disease, unspecified Anemia Unspecified anemia Multiple sclerosis ([facility]) Multiple sclerosis CKD (chronic kidney disease) Chronic kidney disease, unspecified Morbid obesity ([facility])- Primary Morbid obesity End stage renal disease ([facility]) End stage renal disease documented in this encounter [facility]* Diagnosis Chronic kidney disease- Primary Chronic kidney disease, unspecified Anemia Unspecified anemia Multiple sclerosis ([facility]) Multiple sclerosis CKD (chronic kidney disease) Chronic kidney disease, unspecified Low hemoglobin- Primary Anemia of chronic disease Anemia of other chronic disease Personal history of DVT (deep vein thrombosis) Personal history of venous thrombosis and embolism Chronic renal impairment, stage 4 (severe) ([facility]) documented [facility]* Diagnosis Chronic kidney disease- Primary Chronic kidney disease, unspecified Anemia Unspecified anemia Multiple sclerosis ([facility]) Multiple sclerosis CKD (chronic kidney disease) Chronic kidney disease, unspecified Morbid obesity ([facility])- Primary Morbid obesity ESRD (end stage renal disease) ([facility]) End stage renal disease Arteriovenous fistula stenosis, initial encounter ([facility]) documented in [facility]* Diagnosis Chronic kidney disease- Primary Chronic kidney disease, unspecified Anemia Unspecified anemia Multiple sclerosis ([facility]) Multiple sclerosis CKD (chronic kidney disease) Chronic kidney disease, unspecified Positive occult stool blood test- Primary Nonspecific abnormal finding in stool contents Colon cancer screening Special screening for malignant neoplasms, colon documented in [facility]* Diagnosis Chronic kidney disease- Primary Chronic kidney disease, unspecified Anemia Unspecified anemia Multiple sclerosis ([facility]) Multiple sclerosis CKD (chronic kidney disease) Chronic kidney disease, unspecified Anemia of chronic disease- Primary Anemia of other chronic disease Personal history of DVT (deep vein thrombosis) Personal history of venous thrombosis and embolism ESRD (end stage renal disease) on dialysis ([facility]) End stage renal disease Low hemoglobin Chronic renal impairment, stage 4 (severe) ([facility]) documented [facility]* Diagnosis Chronic kidney disease- Primary Chronic kidney disease, unspecified Anemia Unspecified anemia Multiple sclerosis ([facility]) Multiple sclerosis CKD (chronic kidney disease) Chronic kidney disease, unspecified Positive occult stool blood test- Primary Nonspecific abnormal finding in stool contents Colon cancer screening Special screening for malignant neoplasms, colon documented in [facility]* Diagnosis Chronic kidney disease- Primary Chronic kidney disease, unspecified Anemia Unspecified anemia Multiple sclerosis ([facility]) Multiple sclerosis CKD (chronic kidney disease) Chronic kidney disease, unspecified Arteriovenous fistula stenosis, subsequent encounter- Primary MS (multiple sclerosis) ([facility]) Multiple sclerosis ESRD (end stage renal disease) ([facility]) End stage renal disease documented in this encounter [facility]* Diagnosis Chronic kidney disease- Primary Chronic kidney disease, unspecified Anemia Unspecified anemia Multiple sclerosis ([facility]) Multiple sclerosis CKD (chronic kidney disease) Chronic kidney disease, unspecified Positive occult stool blood test- Primary Nonspecific abnormal finding in stool contents Colon cancer screening Special screening for malignant neoplasms, colon documented in this encounter [facility]* Diagnosis Chronic kidney disease- Primary Chronic kidney disease, unspecified Anemia Unspecified anemia Multiple sclerosis ([facility]) Multiple sclerosis CKD (chronic kidney disease) Chronic kidney disease, unspecified Pressure injury of right calf, stage 3 ([facility])- Primary Pressure injury of left calf, stage 2 ([facility]) 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 Traumatic ulcer of right foot limited to breakdown of skin ([facility]) Decreased pedal pulses Other symptoms involving cardiovascular system Lymphedema Other noninfectious lymphedema [facility] Diagnosis Chronic kidney disease- Primary Chronic kidney disease, unspecified Anemia Unspecified anemia Multiple sclerosis ([facility]) Multiple sclerosis CKD (chronic kidney disease) Chronic kidney disease, unspecified Positive occult stool blood test- Primary Nonspecific abnormal finding in stool contents [facility]* Diagnosis MS (multiple sclerosis) ([facility])- Primary Multiple sclerosis documented in this encounter [facility]* Diagnosis Chronic kidney disease- Primary Chronic kidney disease, unspecified Anemia Unspecified anemia Multiple sclerosis ([facility]) Multiple sclerosis CKD (chronic kidney disease) Chronic kidney disease, unspecified Pressure injury of right calf, stage 3 ([facility])- Primary Pressure injury of left calf, stage 2 ([facility]) Lymphedema Other noninfectious lymphedema documented in this encounter [facility]* Diagnosis Chronic kidney disease- Primary Chronic kidney disease, unspecified Anemia Unspecified anemia Multiple sclerosis ([facility]) Multiple sclerosis CKD (chronic kidney disease) Chronic kidney disease, unspecified Wound infection- Primary Posttraumatic wound infection not elsewhere classified Hyperkalemia Hyperpotassemia Epigastric pain Abdominal pain, epigastric Debility Unspecified debility ESRD (end stage renal disease) ([facility]) End stage renal disease Hyperkalemia Hyperpotassemia Traumatic ulcer of right lower extremity with fat layer exposed ([facility]) Dermatitis associated with moisture Lymphedema Other noninfectious lymphedema Pressure injury of right calf, stage 3 ([facility]) Pressure ulcer of sacral region, stage 3 ([facility]) Pressure injury of deep tissue of left calf [facility] Diagnosis Chronic kidney disease- Primary Chronic kidney disease, unspecified Anemia Unspecified anemia Multiple sclerosis ([facility]) Multiple sclerosis CKD (chronic kidney disease) Chronic kidney disease, unspecified Anemia of chronic disease- Primary Anemia of other chronic disease ESRD (end stage renal disease) on dialysis ([facility]) End stage renal disease Low hemoglobin Chronic renal impairment, stage 4 (severe) ([facility]) Personal history of DVT (deep vein thrombosis) Personal history of venous thrombosis and embolism [facility]* Diagnosis Chronic kidney disease- Primary Chronic kidney disease, unspecified Anemia Unspecified anemia Multiple sclerosis ([facility]) Multiple sclerosis CKD (chronic kidney disease) Chronic kidney disease, unspecified Anemia of chronic disease Anemia of other chronic disease ESRD (end stage renal disease) on dialysis ([facility]) End stage renal disease Low hemoglobin Chronic renal impairment, stage 4 (severe) ([facility]) Personal history of DVT (deep vein thrombosis) Personal history of venous thrombosis and embolism documented [facility]* Diagnosis Chronic kidney disease- Primary Chronic kidney disease, unspecified Anemia Unspecified anemia Multiple sclerosis ([facility]) Multiple sclerosis CKD (chronic kidney disease) Chronic kidney disease, unspecified Anemia of chronic disease- Primary Anemia of other chronic disease ESRD (end stage renal disease) on dialysis ([facility]) End stage renal disease Low hemoglobin documented in [facility] encounter [facility]* Diagnosis Chronic kidney disease- Primary Chronic kidney disease, unspecified Anemia Unspecified anemia Multiple sclerosis ([facility]) Multiple sclerosis CKD (chronic kidney disease) Chronic kidney disease, unspecified Pressure injury of right calf, stage 3 ([facility])- Primary Pressure injury of left calf, stage 2 ([facility]) Lymphedema Other noninfectious lymphedema documented in this encounter [facility]* Diagnosis Pain- Primary Generalized pain documented in this encounter [facility]* Diagnosis Chronic kidney disease- Primary Chronic kidney disease, unspecified Anemia Unspecified anemia Multiple sclerosis ([facility]) Multiple sclerosis CKD (chronic kidney disease) Chronic kidney disease, unspecified Pressure injury of right calf, stage 3 ([facility])- Primary Lymphedema Other noninfectious lymphedema ISTAP type 3 skin tear of plantar aspect of left foot [facility] general Narrative - Reported* Type Description Date Medical History multiple sclerosis Medical History bilateral hearing loss Medical History hypertension Medical History diabetes mallitus Medical History thrombacytopenia Medical History kidney disease Surgical History tubal ligation Surgical History knee replacement 2006 Surgical History Foot Surgery-LEFT 2006,2008,200 9 Hospitalization History See Above Clinical Insight Other InstructionsNot on filedocumented in this encounter [facility] filedocument[facility] on filedocumented in this [facility] on filedocumented in this [facility] on filedocumented in this encounter [facility] on filedocumented in this encounter [facility]Not on filedocumented in this encounter [facility]Not on filedocumented in this encounter [facility]Not on filedocumented in this encounter [facility]ructionsNot on filedocumented in this encounter [facility]Not on filedocumented in this encounter [facility]ructionsNot on filedocumented in this encounter [facility]Not on filedocumented in this encounter [facility]ructionsNot on filedocumented in this encounter [facility] SystemInstructionsNot on filedocumented in this encounter [facility]ructionsNot on filedocumented in this encounter [facility] SystemInstructionsNot on filedocumented in this encounter [facility] SystemInstructionsNot on filedocumented in this encounter [facility] SystemReason for visit Narrativereferral [facility] [employer] Other reason for visit NarrativePain Medicine Referral UpdateNortBarix [facility] [place] [employer] Other reason for visit Narrative* Auth/Cert Specialty Diagnoses / Procedures Referred By Laurent t Referred To Contact Diagnoses Wound Infection [facility] [address] [place] [phone] Referral ID Status Reason Start Date Expiration Date Visits Re quested Visits Authorized [id number] 1 1 [facility] Summary Purpose Family History No Family History Records Found Relationship Condition Age at Onset Recorded Date/T jacqui Not Specified Type 2 diabetes mellitus Unknown Advance Directives No Advanced Directives Records FoundDocuments on File Type Date Recorded Patient Application Programmer Analyst Expl anation Advance Directive(s) 12/04/2013 5:55 PM Date Activated Date Inactivated Comments 05/30/2023 2:55 PM 06/01/2023 8:39 PM Date Activated Date Inactivated Comments 09/13/2022 9:32 AM 09/20/2022 3:29 AM Date Activated Date Inactivated Comments 05/30/2023 2:55 PM 06/01/2023 8:39 PM Date Activated Date Inactivated Comments 09/13/2022 9:32 AM 09/20/2022 3:29 AM Latest Code Status on File Code Status Date Activated Date Inactivated Comments Full Code 09/13/2022 9:32 AM 09/20/2022 3:29 AM Latest Code Status on File Code Status Date Activated Date Inactivated Comments Full Code 09/13/2022 9:32 AM 09/20/2022 3:29 AM Date Activated Date Inactivated Comments 05/16/2024 11:02 PM Date Activated Date Inactivated Comments 05/30/2023 2:55 PM 06/01/2023 8:39 PM Date Activated Date Inactivated Comments 09/13/2022 9:32 AM 09/20/2022 3:29 AM Date Activated Date Inactivated Comments 05/16/2024 11:02 PM 05/20/2024 10:17 AM Date Activated Date Inactivated Comments 05/30/2023 2:55 PM 06/01/2023 8:39 PM Date Activated Date Inactivated Comments 09/13/2022 9:32 AM 09/20/2022 3:29 AM Date Activated Date Inactivated Comments 05/16/2024 11:02 PM 05/20/2024 10:17 AM Hospital Course Note [facility] SURGERY Clinical Discharge Summary PERSON INFORMATION Name DONNA MATHEWS Age 57 Years 61 Sex FEMALE Language Kiswahili PCP Harjit Clement MD Marital Status Single Med Service Ambulatory Surgery Acct# Arrival 06/03/18 12:10:14 Visit Reason SURGERY - CYSTOSCOPY [facility] 006 05:41 Address: [address] [place] [id number] Comment: PROVIDER INFORMATION VITALS INFORMATION Vital Sign [...] Diagnosis 1 Neck pain (M54.2) Referral Organization [facility] uros[facility]gery Referring Provider First Name Kendell Referring Provider Last Name Radha Referring Provider Specialty Neurologica l Surgery Referred Organization [facility] Referred Provider Jr. Galindo William Referred Address [address],[place], [place],[address] Referred Provider Specialty Pain Medicin e Referral Priority Routine Specialty Diagnoses / Procedures Referred By Laurent talavera Referred To Contact Physical Therapy Diagnoses MS (multiple sclerosis) ([facility]) Radiculopathy, lumbosacral region Weakness of both lower extremities Procedures [place] OFFICE/OUTPATIENT [facility] 60 MINUTES Elaine Huggins NP [address] [place] [phone] [facility] [address] [place] [address] Referral ID Status Reason Start Date Expiration Date Visits Requested Visits Authorized [id number] Pending Review Consult and Treat 11/26/2023 05/24/2024 1 1 Scheduling Instructions For evaluation and treatment. Consideration of non weightbearing exercises to help improve lower extremity strength Specialty Diagnoses / Procedures Referred By Laurent talavera Referred To Contact Diagnoses ESRD (end stage renal disease) ([facility]) A-V fistula ([facility]) Procedures Vas dialysis access duplex Ziyad Ulrich, [employer] SEWER-WINK CUTTER OPERATOR [address] [place] [address] Referral ID Status Reason Start Date Expiration Date V isits Requested Visits Authorized [id number] Pending Review 04/01/2023 03/31/2024 1 1 Specialty Diagnoses / Procedures Referred By Laurent talavera Referred To Contact Radiology Diagnoses Morbid obesity ([facility]) ESRD (end stage renal disease) ([facility]) Arteriovenous fistula stenosis, initial encounter ([facility]) Procedures IR angiography extremity left Krystin Salcedo MD [address] [facility] [place] [address] Referral ID Status Reason Start Date Expiration Date V isits Requested Visits Authorized [id number] Pending Review 05/02/2023 05/01/2024 1 1 Specialty Diagnoses / Procedures Referred By Contac t Referred To Contact Diagnoses Positive occult stool blood test Colon cancer screening Procedures Colonoscopy Glenna Salazar PA-C [address] [place] [address] Referral ID Status Reason Start Date Expiration Date V isits Requested Visits Authorized [id number] Pending Review 10/04/2023 10/03/2024 1 1 Additional Source Comments INFORMATION SOURCE (unrecogn ized section and content) DATE CREATED AUTHOR 06/26/2018 [facility] DATE CREATED AUTHOR AUTHOR'S ORGANIZ ATION 07/15/2018 [facility] DATE CREATED AUTHOR AUTHOR'S ORGANIZ ATION 06/05/2021 [facility] DATE CREATED AUTHOR AUTHOR'S ORGANIZ ATION 07/07/2021 [facility] DATE CREATED AUTHOR AUTHOR'S ORGANIZ ATION 07/08/2022 [facility] DATE CREATED AUTHOR AUTHOR'S ORGANIZ ATION 09/03/2023 [facility] DATE CREATED AUTHOR AUTHOR'S ORGANIZ ATION 12/06/2023 [facility] DATE CREATED AUTHOR AUTHOR'S ORGANIZ ATION 01/23/2024 [facility] DATE CREATED AUTHOR AUTHOR'S ORGANIZ ATION 03/06/2024 [facility] DATE CREATED AUTHOR AUTHOR'S ORGANIZ ATION 05/20/2024 [facility] DATE CREATED AUTHOR AUTHOR'S ORGANIZ ATION 07/02/2024 [facility] DATE CREATED AUTHOR AUTHOR'S ORGANIZ ATION 07/19/2024 [facility] Source Comments (unrecognize d section and content) In the event this informatio n is protected by the Federal Confidentiality of Alcohol and Drug Abuse Patient Records regulations: The Federal rules restrict any use of the information to criminally investigate or prosecute any alcohol or drug abuse patient.[facility] the event this information is protected by the Federal Confidentiality of Alcohol and Drug Abuse Patient Records regulations: The Federal rules restrict any use of the information to criminally investigate or prosecute any alcohol or drug abuse patient.[facility] Reason for Visit (unrecogniz ed section and content) Reason Comments Question Reason Comments Multiple Sclerosis Reason Comments Wound Check Reason Comments Abscess PRESSURE INJURY RIGH T CALF, STAGE 3, REFERRED BY ELIDIA TIERNEY NP, WOUND CARE, OFFERED SOONER APP BUT [facility] DIDN'T HAVE TRANSPORTATION ON THOSE DAYS Specialty Diagnoses / Procedures Referred By Laurent t Referred To Contact General Surgery Diagnoses Pressure injury of right calf, stage 3 ([facility]) Elidia Tierney, [employer]UTTER OPERATOR [address] [place] [address] Phone: tel: fax: Kristine Murphy MD [address] [place] [address] Phone: tel: fax: Referral ID Status Reason Start Date Expiration Date Visits Requested Visits Authorized [id number] Pending Review Specialty Services Required 02/14/2024 02/13/2025 1 1 Reason Onset Date Comments Med Refill 03/13/2024 Reason Comments Wound Check Reason Comments Post-op Post/op A RESCHEDULE FROM 03-25-23 [facility] had no transport that day. This day was the first available for [facility]. [facility] said they could only go to [place] or [place]. lipectomy by dr salcedo 02-25-23-dr rich pt. Reason Comments Colon Cancer Screening Patient is here t o discuss a colonoscopy. Reason Comments Follow-up Reason Onset Date Comments Med Refill 12/06/2023 Reason Comments ESRD 6 Month Follow up Mo rbid obesity/ESRD and no testing (tunneled dialysis catheter to be removed. Whether that is done by Interventional Radiology, or by vascular surgery depends whose available) Reason Onset Date Comments Med Refill 01/30/2024 Reason Comments Outpatient Infusion 2 unit PRBCs/lasix Reason Onset Date Comments Med Refill 06/23/2024 Care Teams (unrecognized sec tion and content) Automation Tender Relationship Specialty Start Date End Date Doug Ornelas MD [address] [place] [address] PCP - General 01/18/04 Christopher Lema Referring Podiatry 03/31/13 Automation Tender Relationship Specialty Start Date End Date Doug Ornelas MD [address] [place] [address] PCP - General 01/18/04 Christopher Lema [address] [place] [address] Referring Podiatry 03/31/13 Automation Tender Relationship Specialty Start Date End Date Todd George MD [address] [facility] [address] [place] [address] PCP - General Internal Medicine 11/19/23 Automation Tender Relationship Specialty Start Date End Date Todd George MD [address] [facility] [address] [place] [address] PCP - General Internal Medicine 11/19/23 Automation Tender Relationship Specialty Start Date End Date Todd George MD [address] [facility] [address] [place] [address] PCP - General Internal Medicine 11/19/23 Automation Tender Relationship Specialty Start Date End Date Todd George MD [address] [facility] [address] [place] [address] PCP - General Internal Medicine 11/19/23 Automation Tender Relationship Specialty Start Date End Date Todd George MD [address] [facility] [address] [place] [address] PCP - General Internal Medicine 11/19/23 Automation Tender Relationship Specialty Start Date End Date Todd George MD [address] [facility] [address] [place] [address] PCP - General Internal Medicine 09/26/23 Automation Tender Relationship Specialty Start Date End Date Todd George MD PCP - General Internal Medicine 09/13/22 Automation Tender Relationship Specialty Start Date End Date Todd George MD PCP - General Internal Medicine 09/13/22 Automation Tender Relationship Specialty Start Date End Date Todd George MD PCP - General Internal Medicine 09/13/22 Automation Tender Relationship Specialty Start Date End Date Todd George MD [address] [facility] [address] [place] [address] PCP - General Internal Medicine 11/19/23 Automation Tender Relationship Specialty Start Date End Date Todd George MD PCP - General Internal Medicine 09/13/22 Automation Tender Relationship Specialty Start Date End Date Todd George MD PCP - General Internal Medicine 09/13/22 Automation Tender Relationship Specialty Start Date End Date Todd George MD PCP - General Internal Medicine 09/13/22 Automation Tender Relationship Specialty Start Date End Date Todd George MD PCP - General Internal Medicine 09/13/22 Automation Tender Relationship Specialty Start Date End Date Todd George MD PCP - General Internal Medicine 09/13/22 Automation Tender Relationship Specialty Start Date End Date Todd George MD PCP - General Internal Medicine 09/13/22 Automation Tender Relationship Specialty Start Date End Date Todd George MD [address] [place] [address] PCP - General Internal Medicine 09/13/22 Automation Tender Relationship Specialty Start Date End Date Todd George MD [address] [place] [address] PCP - General Internal Medicine 09/13/22 Automation Tender Relationship Specialty Start Date End Date Todd George MD [address] [place] [id number] PCP - General Internal Medicine 09/13/22 Automation Tender Relationship Specialty Start Date End Date Todd George MD [address] [place] [address] PCP - General Internal Medicine 09/13/22 Automation Tender Relationship Specialty Start Date End Date Todd George MD [address] [place] [address] PCP - General Internal Medicine 09/13/22 Automation Tender Relationship Specialty Start Date End Date Todd George MD [address] [place] [address] PCP - General Internal Medicine 09/13/22 Automation Tender Relationship Specialty Start Date End Date Todd George MD [address] [place] [address] PCP - General Internal Medicine 09/13/22 Automation Tender Relationship Specialty Start Date End Date Todd George MD [address] [place] [address] PCP - General Internal Medicine 09/13/22 Automation Tender Relationship Specialty Start Date End Date Todd eGorge MD PCP - General Internal Medicine 09/13/22 Automation Tender Relationship Specialty Start Date End Date Todd George MD PCP - General Internal Medicine 09/13/22 Automation Tender Relationship Specialty Start Date End Date Todd George MD PCP - General Internal Medicine 09/13/22 Automation Tender Relationship Specialty Start Date End Date Todd George MD PCP - General Internal Medicine 09/13/22 Automation Tender Relationship Specialty Start Date End Date Todd George MD PCP - General Internal Medicine 09/13/22 Automation Tender Relationship Specialty Start Date End Date Todd George MD PCP - General Internal Medicine 09/13/22 Automation Tender Relationship Specialty Start Date End Date Todd George MD PCP - General Internal Medicine 09/13/22 Automation Tender Relationship Specialty Start Date End Date Todd George MD PCP - General Internal Medicine 09/13/22 Automation Tender Relationship Specialty Start Date End Date Todd George MD PCP - General Internal Medicine 09/13/22 Automation Tender Relationship Specialty Start Date End Date Todd George MD PCP - General Internal Medicine 09/13/22 Automation Tender Relationship Specialty Start Date End Date Todd George MD PCP - General Internal Medicine 09/13/22 Automation Tender Relationship Specialty Start Date End Date Todd George MD PCP - General Internal Medicine 09/13/22 Automation Tender Relationship Specialty Start Date End Date Todd George MD PCP - General Internal Medicine 09/13/22 Goals (unrecognized section and content) Goals may be documented in a n alternate section Scheduled Active and Recently Administ ered Medications (unrecognized section and content) Medication Order 05/18/2024 05/19/2024 05/20/2024 acetaminophen (TYLENOL EXTRA STRENGTH) tablet 1,000 mg (COMPLETED) 1,000 mg, oral, Once, On Sat05/19/24 at 1115, For 1 dose 1124 (Given - Provider: Yanet Burroughs RN) atorvastatin (LIPITOR) tablet 80 mg 80 mg, oral, Bedtime, First dose on 05/17/24 at 2200, Look-alike/sound-alike medication - verify indication for use. 214 (Given - Provider: Rocael Jansen RN) 2148 (Given - Provider: Rocael Jansen RN) 2200 (Due) darbepoetin xavier-polysorbate (ARANESP) injection 100 mcg 100 mcg, subcutaneous, Weekly, First dose on 05/17/24 at 0900, Do not administer if the patient's hemoglobin is greater than 12 g/dl., Indications: ESRD on Dialysis guaiFENesin (MUCINEX) tablet 600 mg 600 mg, oral, Every 12 hours scheduled, First dose on 05/17/24 at 0015, Look-alike/sound-alike medication - verify indication for use. Do not crush or chew. 0648 (Given - Provider: Indira Garrido RN)0900 (Canceled Entry - Provider: Indira Garrido RN)2143 (Given - Provider: Rocael Jansen RN) 0836 (Given - Provider: Yanet Burroughs RN)2148 (Given - Provider: Rocael Jansen RN) 0900 (Due)2100 (Due) heparin (porcine) injection 5,000 Units 5,000 Units, subcutaneous, Every 8 hours scheduled, First dose on 05/17/24 at 0600, Notify prescriber if INR greater than 1.9, hemoglobin less than 10 mg/dL, aPTT greater than 40 seconds, and/or platelet count less than 100,000/mm Look-alike/sound-alike medication - verify indication for use. Observe for bleeding. 0518 (Given - Provider: Indira Garrido RN)1429 (Given - Provider: Manuela Martínez RN)2143 (Given - Provider: Rocael Jansen RN) 0512 (Given - Provider: Rocael Jansen RN)1512 (Given - Provider: Yanet Burroughs RN)2150 (Given - Provider: Rocael Jansen RN) 0535 (Given - Provider: Rocael Jansen RN)1400 (Due)2200 (Due) ipratropium-albuteroL (DUONEB) 0.5 mg-3 mg(2.5 mg base)/3 mL nebulizer solution 3 mL (CANCELED) 3 mL, nebulization, Every 6 hours, First dose on 05/17/24 at 0015, Implement INPATIENT/ED Bronchodilator Clinical Practice Guidelines? Yes 0322 (Not Given - Provider: Bridget Naylor RCP - Reason: Patient/family refused)0800 (Not Given - Provider: Erika Milligan RCP - Reason: Patient not available - Comment: pt off floor)1245 (Given - Provider: Erika Milligan RCP)1400 (Canceled Entry - Provider: Erika Milligan RCP) midodrine (PROAMATINE) tablet 10 mg 10 mg, oral, 3 times daily, First dose on 05/17/24 at 0745, Look-alike/sound-alike medication - verify indication for use. 0518 (Given - Provider: Indira Garrido RN)1429 (Given - Provider: Manuela Martínez RN)2144 (Given - Provider: Rocael Jansen RN) 0512 (Given - Provider: Rocael Jansen RN)1512 (Given - Provider: Yanet Burroughs RN)2149 (Given - Provider: Rocael Jansen RN) 0535 (Given - Provider: Rocael Jansen RN)1400 (Due)2200 (Due) oxyCODONE (ROXICODONE) immediate release tablet 5 mg (COMPLETED) 5 mg, oral, Once, On 05/18/24 at 2345, For 1 dose, Look-alike/sound-alike medication - verify indication for use. Immediate release. 2343 (Given - Provider: Rocael Jansen RN) oxyCODONE (ROXICODONE) immediate release tablet 5 mg (COMPLETED) 5 mg, oral, Once, On Tu05/19/24 at 1515, For 1 dose, Look-alike/sound-alike medication - verify indication for use. Immediate release. 1512 (Given - Provider: Yanet Burroughs RN) oxyCODONE (ROXICODONE) immediate release tablet 5 mg (COMPLETED) 5 mg, oral, Once, On Sat05/20/24 at 0015, For 1 dose, Look-alike/sound-alike medication - verify indication for use. Immediate release. 0013 (Given - Provider: Rocael Jansen RN) pantoprazole (PROTONIX) EC tablet 40 mg 40 mg, oral, 2 times daily before meals, First dose on Sat05/19/24 at 1115, Look-alike/sound-alike medication - verify indication for use. If patient is receiving enteral feeding, consider alternative PPI or continue IV pantoprazole until the delayed-release tablet can be taken orally, Indication: GERD 1124 (Given - Provider: Yanet Burroughs RN)1600 (Canceled Entry - Provider: Yanet Burroughs RN - Comment: first dose given late) 0535 (Given - Provider: Rocael Jansen RN)1600 (Due) sevelamer (RENVELA) tablet 800 mg 800 mg, oral, 3 times daily with meals, First dose (after last reorder) on Sat05/17/24 at 0700, Look-alike/sound-alike medication - verify indication for use Give with meals Administer other medications 1 hour before or 3 hours after Enteral Feeding: Lanthanum and sevelamer TABLETS are not recommended to be crushed and administered in feeding tube due to risk of clogging tube Alternative: sevelamer carbonate suspension/packets or calcium carbonate per tube 0648 (Given - Provider: Indira Garrido RN)0800 (Canceled Entry - Provider: Indira Garrido RN)1222 (Given - Provider: Manuela Martínez RN)1604 (Given - Provider: Manuela Martínez RN) 0836 (Given - Provider: Yanet Burroughs, JAMEL)1124 (Given - Provider: Yanet Burroughs RN)1700 (Not Given - Provider: Yanet Burroughs RN - Reason: Patient/family refused) 0800 (Due)1200 (Due)1700 (Due) sodium chloride 0.9 % flush 3 mL 3 mL, intravenous, Every 12 hours scheduled, First dose on 05/16/24 at 2315 0900 (Not Given - Provider: Manuela Martínez RN - Reason: Patient not available)214 (Given - Provider: Rocael Jansen RN) 0836 (Given - Provider: Yanet Burroughs RN)2148 (Not Given - Provider: Rocael Jansen RN - Reason: Loss of IV access) 0900 (Due)2100 (Due) sodium zirconium cyclosilicate (LOKELMA) packet 10 g 10 g, oral, 3 times weekly (Once per day on Saturday), First dose (after last modification) on Sat05/21/24 at 0900, Hold for potassium less than 4.4 Empty entire contents of the packet(s) into a glass with 3 tablespoons (45 mL) or more water. Stir well and drink immediately; if powder remains in the glass, add water, stir and drink immediately; repeat until no powder remains. Administer other oral medications 2 or more hours before or 2 hours after dose. sodium zirconium cyclosilicate (LOKELMA) packet 10 g (COMPLETED) 10 g, oral, Once, On Sat05/18/24 at 1345, For 1 dose, Empty entire contents of the packet(s) into a glass with 3 tablespoons (45 mL) or more water. Stir well and drink immediately; if powder remains in the glass, add water, stir and drink immediately; repeat until no powder remains. Administer other oral medications 2 or more hours before or 2 hours after dose. 1429 (Given - Provider: Manuela Martínez RN) Continuous Medication Order 05/18/2024 05/19/2024 05/20/2024 sodium chloride 0.9 % infusion () 250 mL, hemodialysis, at 100 mL/hr, Continuous, Starting on Sat05/18/24 at 0715, Hemodialysis, as priming solution for hemodialysis tubing. 0804 (New Bag - Provider: Bridget Singer, JAMEL)0805 (Stop Bag - Provider: Bridget Singer RN) PRN Medication Order 05/18/2024 05/19/2024 05/20/2024 benzocaine-menthoL (CHLORASEPTIC SORE THROAT) 6-10 mg lozenge 1 lozenge 1 lozenge, oral, Every 2 hour PRN, sore throat, Starting on Sat05/17/24 at 0001, Allow lozenge to dissolve slowly in mouth. Do not swallow. 0437 (Given - Provider: Indira Garrido RN) 0842 (Given - Provider: Yanet Burroughs RN) calcium gluconate 3,000 mg in sodium chloride 0.9 % 100 mL IVPB 3,000 mg, intravenous, at 43.3 mL/hr, Administer over 3 Hours, As needed, ionized calcium 3.5 to 3.9 mg/dL, Starting on 05/17/24 at 1156, IV Administration of calcium via a central or deep vein preferred. Avoid administration in small hand veins VESICANT (RED) calcium gluconate 3,000 mg in sodium chloride 0.9 % 100 mL IVPB 3,000 mg, intravenous, at 43.3 mL/hr, Administer over 3 Hours, As needed, ionized calcium 3.5 to 3.9 mg/dL, Starting on 05/17/24 at 1339, IV Administration of calcium via a central or deep vein preferred. Avoid administration in small hand veins VESICANT (RED) calcium gluconate 4,000 mg in sodium chloride 0.9 % 250 mL IVPB 4,000 mg, intravenous, at 72.5 mL/hr, Administer over 4 Hours, As needed, ionized calcium 3.4 mg/dL or less, Starting on Sat05/17/24 at 1155, IV administration of calcium via a central or deep vein is preferred. Avoid administration in small hand veins. VESICANT (RED) calcium gluconate 4,000 mg in sodium chloride 0.9 % 250 mL IVPB 4,000 mg, intravenous, at 72.5 mL/hr, Administer over 4 Hours, As needed, ionized calcium 3.4 mg/dL or less, Starting on 05/17/24 at 1339, IV administration of calcium via a central or deep vein is preferred. Avoid administration in small hand veins. VESICANT (RED) calcium gluconate IVPB 2000 mg/100 mL (20 mg/mL premix) 2,000 mg, intravenous, at 50 mL/hr, Administer over 2 Hours, As needed, ionized calcium 4 to 4.3 mg/dL, Starting on 05/17/24 at 1156, IV Administration of calcium via a central or deep vein preferred. Avoid administration in small hand veins VESICANT (RED) calcium gluconate IVPB 2000 mg/100 mL (20 mg/mL premix) 2,000 mg, intravenous, at 50 mL/hr, Administer over 2 Hours, As needed, ionized calcium 4 to 4.3 mg/dL, Starting on 05/17/24 at 1339, IV Administration of calcium via a central or deep vein preferred. Avoid administration in small hand veins VESICANT (RED) dextrose (GLUTOSE) 40 % gel 15 g 15 g, oral, As needed, low blood sugar, blood glucose less than 70 mg/dL, Starting on 05/16/24 at 2300, If patient conscious and taking PO. If blood glucose is not greater than 70 mg/dL after initial treatment, repeat treatment. dextrose 5 % (D5W) infusion 100 mL/hr, intravenous, Continuous PRN, blood glucose less than 70 mg/dL, Starting on 05/16/24 at 2300, Use immediately following dextrose 50% or glucagon treatment for patients who are unconscious or NPO. Contact prescriber for additional orders. If blood glucose is not greater than 70 mg/dL after initial treatment, repeat treatment. dextrose 50 % in water (D50W) 50% solution 25 mL 25 mL, intravenous, As needed, low blood sugar, blood glucose less than 70 mg/dL and unconscious or NPO with IV access, Starting on 05/16/24 at 2300, Push over 1-3 minutes STAT. If conscious and not NPO, immediately follow with meal tray or high protein (7 grams) snack if tray not available. If NPO, initiate 5% dextrose in water at 100 mL/hr and contact prescriber for additional orders. If blood glucose is not greater than 70 mg/dL after initial treatment, repeat treatment. VESICANT (RED) Warning: HYPERTONIC solution. glucagon HCL injection 1 mg 1 mg, intramuscular, As needed, low blood sugar, blood glucose less than 70 mg/dL and unconscious or NPO without IV access., Starting on 05/16/24 at 2300, If conscious and not NPO, immediately follow with meal tray or high protein (7Grams) snack if tray not available. If NPO, initiate IV 5% Dextrose/Water at 100 mL/hr and contact prescriber for additional orders. If blood glucose is not greater than 70 mg/dL after initial treatment, repeat treatment. ipratropium-albuteroL (DUONEB) 0.5 mg-3 mg(2.5 mg base)/3 mL nebulizer solution 3 mL 3 mL, nebulization, Every 6 hours PRN, wheezing, Starting on Sat05/18/24 at 1300, Implement INPATIENT/ED Bronchodilator Clinical Practice Guidelines? Yes magnesium sulfate IVPB 2000 mg/50 mL in iso-osmotic water (40 mg/mL premix) 2,000 mg, intravenous, at 25 mL/hr, Administer over 120 Minutes, As needed, Magnesium level 1.7 to 1.9 mg/dL, or Ionized Magnesium level 0.45 to 0.5 mmol/L., Starting on Sat05/17/24 at 1338, Recheck magnesium level 4 hours after infusion complete. With each magnesium result continue the replacement orders as needed. magnesium sulfate IVPB 4000 mg/100 mL in iso-osmotic water (40 mg/mL premix) 4,000 mg, intravenous, at 25 mL/hr, Administer over 240 Minutes, As needed, Magnesium level 1.6 mg/dL or less, or Ionized Magnesium level 0.44 mmol/L or less, Starting on Sat05/17/24 at 1338, Recheck magnesium level 4 hours after infusion complete. With each magnesium result continue the replacement orders as needed. midodrine (PROAMATINE) tablet 10 mg 10 mg, oral, As needed, For SBP <100 with dialysis, Starting on Sat05/18/24 at 0818, For 2 doses, Hemodialysis, Look-alike/sound-alike medication - verify indication for use. 0923 (Given - Provider: Bridget Singer RN - Comment: SBP :98) ondansetron (PF) (ZOFRAN) injection 4 mg 4 mg, intravenous, Every 4 hours PRN, nausea, vomiting, Starting on Sat05/18/24 at 1811, Administer over 2-5 minutes. 1819 (Given - Provider: Manuela Martínez RN) 2343 (Return to Cabinet - Provider: Rocael Jansen RN) potassium chloride (K-TAB,KLOR-CON) CR tablet 20-40 mEq(Linked Group 1) 20-40 mEq, oral, As needed, Potassium Supplementation, Starting on Sat05/17/24 at 1154, Progress to oral potassium replacement when patient tolerating oral intake. If dose administered, recheck potassium level 4 hours after last dose. For potassium level 3.4 to 3.8 mmol/L and GFR less than 30 mL/min or dialysis=20 mEq. For potassium level 3.1 to 3.3 mmol/L and GFR less than 30 mL/min or dialysis=30 mEq. For potassium level 3 mmol/L or less and GFR less than 30 mL/min or dialysis=40 mEq. Do not crush or chew. potassium chloride (K-TAB,KLOR-CON) CR tablet 20-40 mEq(Linked Group 2) 20-40 mEq, oral, As needed, Potassium Supplementation, Starting on 05/17/24 at 1338, Progress to oral potassium replacement when patient tolerating oral intake. If dose administered, recheck potassium level 4 hours after last dose. For potassium level 3.4 to 3.8 mmol/L and GFR less than 30 mL/min or dialysis=20 mEq. For potassium level 3.1 to 3.3 mmol/L and GFR less than 30 mL/min or dialysis=30 mEq. For potassium level 3 mmol/L or less and GFR less than 30 mL/min or dialysis=40 mEq. Do not crush or chew. potassium chloride (KAYCIEL) 20 mEq/15 mL solution 20-40 mEq(Linked Group 1) 20-40 mEq, oral, As needed, Potassium Supplementation, Starting on 05/17/24 at 1154, Progress to oral potassium replacement when patient tolerating oral intake. If dose administered, recheck potassium level 4 hours after last dose. For potassium level 3.4 to 3.8 mmol/L and GFR less than 30 mL/min or dialysis=20 mEq. For potassium level 3.1 to 3.3 mmol/L and GFR less than 30 mL/min or dialysis=30 mEq. For potassium level 3 mmol/L or less and GFR less than 30 mL/min or dialysis=40 mEq. Must dilute before use - Mix in 3-8 ounces of water or juice before administration When administering in feeding tube, flush before and after per policy and monitor potassium levels potassium chloride (KAYCIEL) 20 mEq/15 mL solution 20-40 mEq(Linked Group 2) 20-40 mEq, oral, As needed, Potassium Supplementation, Starting on 05/17/24 at 1338, Progress to oral potassium replacement when patient tolerating oral intake. If dose administered, recheck potassium level 4 hours after last dose. For potassium level 3.4 to 3.8 mmol/L and GFR less than 30 mL/min or dialysis=20 mEq. For potassium level 3.1 to 3.3 mmol/L and GFR less than 30 mL/min or dialysis=30 mEq. For potassium level 3 mmol/L or less and GFR less than 30 mL/min or dialysis=40 mEq. Must dilute before use - Mix in 3-8 ounces of water or juice before administration When administering in feeding tube, flush before and after per policy and monitor potassium levels potassium chloride IVPB 10 mEq/100 mL in water (0.1 mEq/mL premix)(Linked Group 1) 10 mEq, intravenous, at 100 mL/hr, Administer over 60 Minutes, As needed, POTASSIUM REPLACEMENT, Starting on 05/17/24 at 1154, IV if unable to use oral/enteral with the current dosing strategies Potassium level 3 mmol/L or less administer Potassium Chloride 40 mEq Potassium level 3.1 to 3.3 mmol/L administer Potassium Chloride 30 mEq Potassium level 3.4 to 3.8 mmol/L administer Potassium Chloride 20 mEq Use central line when applicable. Recheck potassium level 1 hour after total IVPB infusion complete, With each potassium result continue the replacement orders as needed VESICANT (YELLOW) Infuse each 10 mEq over a minimum of 1 hour. potassium chloride IVPB 10 mEq/100 mL in water (0.1 mEq/mL premix)(Linked Group 2) 10 mEq, intravenous, at 100 mL/hr, Administer over 60 Minutes, As needed, POTASSIUM REPLACEMENT, Starting on 05/17/24 at 1338, IV if unable to use oral/enteral with the current dosing strategies Potassium level 3 mmol/L or less administer Potassium Chloride 40 mEq Potassium level 3.1 to 3.3 mmol/L administer Potassium Chloride 30 mEq Potassium level 3.4 to 3.8 mmol/L administer Potassium Chloride 20 mEq Use central line when applicable. Recheck potassium level 1 hour after total IVPB infusion complete, With each potassium result continue the replacement orders as needed VESICANT (YELLOW) Infuse each 10 mEq over a minimum of 1 hour. sod phos di, mono-K phos mono (K-PHOS NEUTRAL) 250 mg tablet 2 tablet(Linked Group 3) 2 tablet, oral, As needed, for phosphorus level 2.3 mg/dL or less., Starting on 05/17/24 at 1339, If dose administered, recheck phosphorus level 4 hours after last dose. Look-alike/sound-alike medication - verify indication for use. Give with a full glass of water. sodium chloride 0.9 % bolus 150 mL, intravenous, at 600 mL/hr, Administer over 15 Minutes, Every 5 min PRN, hypotension during hemodialysis, Starting on Sat05/18/24 at 0700, For 3 doses, Hemodialysis, For systolic blood pressure < 90. Notify physician if no response following 3rd bolus sodium chloride 0.9 % flush 3 mL 3 mL, intravenous, As needed, line care, before and after each intermittent use, Starting on 05/16/24 at 2300 sodium chloride 0.9 % flush bag 25 mL, intravenous, at 100 mL/hr, Administer over 15 Minutes, As needed, line care, line care after IVPB administration, Starting on 05/16/24 at 2300 sodium phosphate 20 mmol in sodium chloride 0.9 % 100 mL IVPB(Linked Group 3) 20 mmol, intravenous, at 26.7 mL/hr, Administer over 4 Hours, As needed, for phosphorus level 2.3 mg/dL or less., Starting on Sat05/17/24 at 1339, Administer over 4 hours via dedicated line (central line). If administered, recheck phosphorus level 4 hours after infusion complete. Infuse using central line access. sodium phosphate 20 mmol in sodium chloride 0.9 % 250 mL IVPB(Linked Group 3) 20 mmol, intravenous, at 42.8 mL/hr, Administer over 6 Hours, As needed, for phosphorus level 2.3 mg/dL or less, Starting on 05/17/24 at 1339, Administer over 6 hours via dedicated line (peripheral line). If administered, recheck phosphorus level 4 hours after infusion complete. Linked Groups Order Group 1: potassium chloride (K-TAB,KLOR-CON) CR tablet 20-40 mEqJump to med 20-40 mEq, oral, As needed, Potassium Supplementation, Starting on Sat05/17/24 at 1154, Progress to oral potassium replacement when patient tolerating oral intake. If dose administered, recheck potassium level 4 hours after last dose. For potassium level 3.4 to 3.8 mmol/L and GFR less than 30 mL/min or dialysis=20 mEq. For potassium level 3.1 to 3.3 mmol/L and GFR less than 30 mL/min or dialysis=30 mEq. For potassium level 3 mmol/L or less and GFR less than 30 mL/min or dialysis=40 mEq. Do not crush or chew. Or potassium chloride (KAYCIEL) 20 mEq/15 mL solution 20-40 mEqJump to med 20-40 mEq, oral, As needed, Potassium Supplementation, Starting on [place] 05/17/24 at 1154, Progress to oral potassium replacement when patient tolerating oral intake. If dose administered, recheck potassium level 4 hours after last dose. For potassium level 3.4 to 3.8 mmol/L and GFR less than 30 mL/min or dialysis=20 mEq. For potassium level 3.1 to 3.3 mmol/L and GFR less than 30 mL/min or dialysis=30 mEq. For potassium level 3 mmol/L or less and GFR less than 30 mL/min or dialysis=40 mEq. Must dilute before use - Mix in 3-8 ounces of water or juice before administration When administering in feeding tube, flush before and after per policy and monitor potassium levels Or potassium chloride IVPB 10 mEq/100 mL in water (0.1 mEq/mL premix)Jump to med 10 mEq, intravenous, at 100 mL/hr, Administer over 60 Minutes, As needed, POTASSIUM REPLACEMENT, Starting on Sat05/17/24 at 1154, IV if unable to use oral/enteral with the current dosing strategies Potassium level 3 mmol/L or less administer Potassium Chloride 40 mEq Potassium level 3.1 to 3.3 mmol/L administer Potassium Chloride 30 mEq Potassium level 3.4 to 3.8 mmol/L administer Potassium Chloride 20 mEq Use central line when applicable. Recheck potassium level 1 hour after total IVPB infusion complete, With each potassium result continue the replacement orders as needed VESICANT (YELLOW) Infuse each 10 mEq over a minimum of 1 hour. Group 2: potassium chloride (K-TAB,KLOR-CON) CR tablet 20-40 mEqJump to med 20-40 mEq, oral, As needed, Potassium Supplementation, Starting on Sat05/17/24 at 1338, Progress to oral potassium replacement when patient tolerating oral intake. If dose administered, recheck potassium level 4 hours after last dose. For potassium level 3.4 to 3.8 mmol/L and GFR less than 30 mL/min or dialysis=20 mEq. For potassium level 3.1 to 3.3 mmol/L and GFR less than 30 mL/min or dialysis=30 mEq. For potassium level 3 mmol/L or less and GFR less than 30 mL/min or dialysis=40 mEq. Do not crush or chew. Or potassium chloride (KAYCIEL) 20 mEq/15 mL solution 20-40 mEqJump to med 20-40 mEq, oral, As needed, Potassium Supplementation, Starting on 05/17/24 at 1338, Progress to oral potassium replacement when patient tolerating oral intake. If dose administered, recheck potassium level 4 hours after last dose. For potassium level 3.4 to 3.8 mmol/L and GFR less than 30 mL/min or dialysis=20 mEq. For potassium level 3.1 to 3.3 mmol/L and GFR less than 30 mL/min or dialysis=30 mEq. For potassium level 3 mmol/L or less and GFR less than 30 mL/min or dialysis=40 mEq. Must dilute before use - Mix in 3-8 ounces of water or juice before administration When administering in feeding tube, flush before and after per policy and monitor potassium levels Or potassium chloride IVPB 10 mEq/100 mL in water (0.1 mEq/mL premix)Jump to med 10 mEq, intravenous, at 100 mL/hr, Administer over 60 Minutes, As needed, POTASSIUM REPLACEMENT, Starting on 05/17/24 at 1338, IV if unable to use oral/enteral with the current dosing strategies Potassium level 3 mmol/L or less administer Potassium Chloride 40 mEq Potassium level 3.1 to 3.3 mmol/L administer Potassium Chloride 30 mEq Potassium level 3.4 to 3.8 mmol/L administer Potassium Chloride 20 mEq Use central line when applicable. Recheck potassium level 1 hour after total IVPB infusion complete, With each potassium result continue the replacement orders as needed VESICANT (YELLOW) Infuse each 10 mEq over a minimum of 1 hour. Group 3: sodium phosphate 20 mmol in sodium chloride 0.9 % 250 mL IVPBJump to med 20 mmol, intravenous, at 42.8 mL/hr, Administer over 6 Hours, As needed, for phosphorus level 2.3 mg/dL or less, Starting on 05/17/24 at 1339, Administer over 6 hours via dedicated line (peripheral line). If administered, recheck phosphorus level 4 hours after infusion complete. Or sodium phosphate 20 mmol in sodium chloride 0.9 % 100 mL IVPBJump to med 20 mmol, intravenous, at 26.7 mL/hr, Administer over 4 Hours, As needed, for phosphorus level 2.3 mg/dL or less., Starting on 05/17/24 at 1339, Administer over 4 hours via dedicated line (central line). If administered, recheck phosphorus level 4 hours after infusion complete. Infuse using central line access. Or sod phos di, mono-K phos mono (K-PHOS NEUTRAL) 250 mg tablet 2 tabletJump to med 2 tablet, oral, As needed, for phosphorus level 2.3 mg/dL or less., Starting on 05/17/24 at 1339, If dose administered, recheck phosphorus level 4 hours after last dose. Look-alike/sound-alike medication - verify indication for use. Give with a full glass of water. Dialysis Access Sites (unrec ognized section and content) Type Status Location Placement Date Removal Da te Hemodialysis Fistula/Graft 05/30/23 Left Upper arm Active Left Upper Arm - Anterior 05/30/2023 Hemodialysis Catheter Double 09/07/22 Right Subclavian Inactive Right Breast - Upper 09/07/2022 08/16/2023 FOR RECORDS PERTAINING TO PATIENTS WHO ARE [...] BE BASED ON THE PRIMARY CLINICAL RECORDS. [employer] provides no warranty or guarantee of the accuracy or completeness of information in this document.
[2024-07-29 20:45] LABS: Hemoglobin 7.1 g/dL (12.0-16.0)
== END 2024-07-29 20:24 | disposition home or self-care (01) ==
LOC: LAB 20:23
PROVIDERS: PCP Internal Medicine; Visit Provider Nurse Practitioner Family
DX: D64.9 Anemia, unspecified (principal)
CPT/HCPCS: 36415; 85018